=== PATIENT | male | born 1950 | race African-American/Black ===

== ENCOUNTER 2016-10-22 15:22 | Inpatient (IN) | payer OTHER, BC ==
[2016-10-22 15:32] VITALS: BMI 28.1
--- NOTE | 2016-10-22 16:10 | PDOC ---
History of Present Illness - General History Source: Patient Exam Limitations: No Limitations - History of Present Illness Initial Comments: 10/22/16 18:11 The patient is a 65 year old male, with a significant past medical history of COPD(3 L O2 at home), asthma, DM(well controlled), CAD, CVA(left sided weakness) , hypertension, hyperlipidemia, and gout, who presents to the emergency department complaining of fever and an open wound to his foot since yesterday. The patient reports he has a history of wounds to his feet secondary to diabetes. The patient reports one of his wounds split open yesterday morning and he lost a lot of blood. The patient denies any recent injuries to his leg or foot. This morning when he woke up the patient reports he had a fever. Once the patients nurse took his temperature, his TMax was 102F. The patient reports calling Dr. Sanders, who typically monitors his wounds every 2 weeks , and states he was told to present to the ED for further evaluation. The patient denies any chest pain shortness of breath, diaphoresis or palpitations. The patient denies any cough, headache, or dizziness. The patient denies any abdominal pain, nausea, vomiting, diarrhea, constipation, or changes in urination patterns. The patient denies any recent travel or sick contacts. Allergies: None reported. Past Surgical History: Appendectomy, Cholecystectomy Social History: Former smoker(Quit 2013). Denies alcohol or drug use. PCP: Dr. Sanon Surgeon: Dr. Sanders <Kelvin Byrnes - Last Filed: 10/22/16 18:11> <Mark Bonds - Last Filed: 10/23/16 09:59> - General Chief Complaint: SIRS, Suspected/Possible Stated Complaint: CHILLS, SOB, LACERATED RT TOE (DIABETIC) Time Seen by Provider: 10/22/16 15:40 Past History <Kelvin Byrnes - Last Filed: 10/22/16 18:11> - Past Medical History Anemia: No Asthma: Yes Cancer: No Cardiac Disorders: Yes (CAD) CVA: Yes (L sided weakness) COPD: Yes (3L O2 NC AT HOME) CHF: No Dementia: No Diabetes: Yes GI Disorders: No Disorders: Yes HTN: Yes Hypercholesterolemia: Yes Liver Disease: No Suicide Attempt (Hx): No Seizures: No Thyroid Disease: No - Surgical History Abdominal Surgery: No Appendectomy: Yes Cardiac Surgery: No Cholecystectomy: Yes Lung Surgery: No Neurologic Surgery: No Orthopedic Surgery: No - Immunization History Immunization Up to Date: Yes - Psycho/Social/Smoking Cessation Hx Anxiety: No Suicidal Ideation: No Smoking Status: No Smoking History: Never smoked Have you smoked in the past 12 months: Yes Number of Cigarettes Smoked Daily: 10 If you are a former smoker, when did you quit?: May 2014 Information on smoking cessation initiated: No 'Breaking Loose' booklet given: 08/22/15 Hx Alcohol Use: No Drug/Substance Use Hx: No Substance Use Type: None Hx Substance Use Treatment: No <Mark Bonds - Last Filed: 10/23/16 09:59> - Past Medical History Allergies/Adverse Reactions: Allergies Allergy/AdvReac Type Severity Reaction Status Date / Time No Known Drug Allergies Allergy Verified 10/22/16 15:32 Home Medications: Ambulatory Orders Allopurinol 300 mg PO DAILY 05/11/16 Amlodipine Besylate [Norvasc -] 5 mg PO DAILY 05/11/16 Atorvastatin Ca [Lipitor] 20 mg PO DAILY 05/11/16 Clopidogrel Bisulfate [Plavix -] 75 mg PO DAILY 05/11/16 Furosemide [Lasix -] 40 mg PO DAILY 05/11/16 Gabapentin [Neurontin] 800 mg PO TID 05/11/16 Linagliptin [Tradjenta] 5 mg PO DAILY 05/11/16 Mupirocin Ointment [Bactroban 2% Ointment -] 1 applic TP BID 05/11/16 Nystatin Powder [Nystop Powder -] 60 gm TP DAILY 05/11/16 Omeprazole 20 mg PO BID 05/11/16 Peg 400/Hypromellose/Glycerin [Artificial Tears Drops] 1 drop OU DAILY 05/11/16 Pramipexole Dihydrochloride [Mirapex -] 0.5 mg PO HS 05/11/16 Solifenacin Succinate [Vesicare -] 5 mg PO DAILY 05/11/16 Tamsulosin HCl [Flomax -] 0.4 mg PO DAILY 05/11/16 Trazodone HCl [Desyrel -] 50 mg PO HS 05/11/16 Docusate Sodium [Colace -] 100 mg PO TID capsule 07/19/16 Erythromycin 0.5% Eye Ointment [Erythromycin 0.5% Eye Ointment -] 1 applic OD TID tube 07/19/16 Losartan Potassium [Cozaar -] 25 mg PO DAILY tablet 07/19/16 Metoprolol Succinate [Toprol XL -] 25 mg PO DAILY tab.sr.24h 07/19/16 Neomycin/Polymyx/Hc Ophth Susp [Cortisporin *Ophthalmic Suspension* -] 1 drop OD Q4HWA drops 07/19/16 Nicotine Polacrilex [Nicorelief -] 2 mg BUC Q2H PRN #0 gum 07/19/16 Oxycodone HCl [Roxicodone -] 5 mg PO Q8H PRN #30 tablet MDD 3 07/19/16 Picc Line Flush [Picc Line Flush -] 8 ml IVPUSH PRN PRN #0 ml 07/20/16 Memantine HCl [Namenda Xr] 7 mg PO DAILY 07/22/16 Cefepime [Maxipime (Restricted To Id) -] 2 gm IVPB DAILY #0 vial 07/23/16 Metronidazole [Flagyl -] 500 mg PO TID tablet 07/23/16 Review of Systems - Review of Systems Able to Perform ROS?: Yes Comments:: 10/22/16 18:11 CONSTITUTIONAL: +Fever. No reported: Chills, Diaphoresis, Generalized Weakness, Malaise, Loss of Appetite HEENT: No reported: Rhinorrhea, Nasal Congestion, Throat Pain, Throat Swelling, Difficulty Swallowing, Mouth Swelling, Ear Pain, Eye Pain, Visual Changes CARDIOVASCULAR: No reported: Chest Pain, Syncope, Palpitations, Irregular Heart Rate, Lightheadedness, Peripheral Edema RESPIRATORY: No reported: Cough, Shortness of Breath, SOB with Exertion, Orthopnea, Wheezing , Stridor, Hemoptysis GASTROINTESTINAL: No reported: Abdominal pain, Abdominal Distension, Nausea, Vomiting, Diarrhea, Constipation, Melena, Hematochezia GENITOURINARY: No reported: Dysuria, Frequency, Urgency, Hesitancy, Flank Pain, Genital Pain MUSCULOSKELETAL: No reported: Myalgia, Arthralgia, Joint Swelling, Back pain, Neck Pain SKIN: +Wound to feet bilaterally. No reported: Rash, Itching, Pallor HEMEATOLOGIC/IMMUNOLOGIC: No reported: Easy Bleeding, Easy Bruising, Lymphadenopathy, Frequent infections ENDOCRINE: No reported: Unexplained Weight Gain, Unexplained Weight Loss, Heat Intolerance , Cold Intolerance NEUROLOGIC: No reported: Headache, Focal Weakness, Paresthesias, Vertigo, Lightheadedness, Unsteady Gait, Seizure, Mental Status Changes, Incontinence PSYCHIATRIC: No reported: Anxiety, Depression <Kelvin Byrnes - Last Filed: 10/22/16 18:11> *Physical Exam - Vital Signs Last Vital Signs Temp Pulse Resp BP Pulse Ox 102.7 F H 89 29 H 104/65 97 10/22/16 16:10 10/22/16 15:32 10/22/16 16:10 10/22/16 16:10 10/22/16 16:10 - Physical Exam Comments: 10/22/16 18:11 GENERAL: The patient is awake, alert, and fully oriented, Nontoxic - in no acute distress. HEAD: Normocephalic, atraumatic. EYES: extraocular movements intact, sclera anicteric, conjunctiva clear. ENT: NC in place, Normal voice, Moist mucous membranes. NECK: Normal range of motion, supple LUNGS: Breath sounds equal, clear to auscultation bilaterally. No wheezes, no rhonchi, no rales. HEART: Regular rate and rhythm, without murmur, rub or gallop. ABDOMEN: Soft, nontender, normoactive bowel sounds. No guarding, no rebound.No CVA tenderness EXTREMITIES: mild edema of L foot, + open wound on plantar aspect of L foot, + thick blood tinged discharge when compressed, +warmth to L foot, RLE no open wounds, +chronic deformity noted on R ankle/foot NEUROLOGICAL: No facial asymmetry, Normal speech, moving all 4 extremities spontaneously and symmetrically. PSYCH: Normal mood, normal affect. SKIN: Warm, Dry, normal turgor. <Kelvin Byrnes - Last Filed: 10/22/16 18:11> - Vital Signs Last Vital Signs Temp Pulse Resp BP Pulse Ox 100.4 F H 103 H 20 108/58 97 10/22/16 15:29 10/22/16 15:29 10/22/16 15:29 10/22/16 15:29 10/22/16 15:29 <Mark Bonds - Last Filed: 10/23/16 09:59> Heart Score/ECG Review - ECG Impressions Comment:: 10/22/16 18:40 Twelve-lead EKG was performed and reviewed by me. There is normal sinus rhythm with a normal rate. Rate of 86 Right axis deviation q wave in lead III <Mark Bonds - Last Filed: 10/23/16 09:59> ED Treatment Course - LABORATORY CBC & Chemistry Diagram: 10/22/16 16:25 10/22/16 16:25 - ADDITIONAL ORDERS Additional order review: Laboratory Results 10/22/16 10/22/16 10/22/16 16:40 16:25 16:25 INR PTT (Actin FS) VBG pH 7.32 POC VBG pCO2 44.8 D POC VBG pO2 41.4 Mixed VBG HCO3 22.4 Sodium Cancelled Potassium Cancelled Chloride Cancelled Carbon Dioxide Cancelled Anion Gap Cancelled BUN Cancelled Creatinine Cancelled Creat Clearance w eGFR Cancelled Random Glucose Cancelled Lactic Acid 3.586 H* Calcium Cancelled Total Bilirubin Cancelled AST Cancelled ALT Cancelled Alkaline Phosphatase Cancelled Creatine Kinase Cancelled Troponin I Cancelled Total Protein Cancelled Albumin Cancelled 10/22/16 16:25 INR 1.31 H PTT (Actin FS) 31.2 VBG pH POC VBG pCO2 POC VBG pO2 Mixed VBG HCO3 Sodium Potassium Chloride Carbon Dioxide Anion Gap BUN Creatinine Creat Clearance w eGFR Random Glucose Lactic Acid Calcium Total Bilirubin AST ALT Alkaline Phosphatase Creatine Kinase Troponin I Total Protein Albumin 10/22/16 16:25 RBC 4.60 D MCV 68.2 L MCHC 30.5 L RDW 21.4 H D MPV 9.1 Neutrophils % 83.9 H Lymphocytes % 6.0 L D Monocytes % 9.1 Eosinophils % 0.5 D Basophils % 0.5 - Medications Given in the ED: ED Medications Discontinued Medications Generic Name Dose Route Start Last Admin Trade Name Freq PRN Reason Stop Dose Admin Acetaminophen 975 mg 10/22/16 17:01 10/22/16 17:05 Tylenol - PO 10/22/16 17:02 975 mg ONCE ONE Administration <Kelvin Byrnes - Last Filed: 10/22/16 18:11> - LABORATORY CBC & Chemistry Diagram: 10/23/16 06:05 10/23/16 06:05 <Mark Bonds - Last Filed: 10/23/16 09:59> Medical Decision Making - Medical Decision Making 10/22/16 16:13 65y Y M htn, copd (on 3L of NC), CVA, hl, dm, chronic wound presents with fever/ chills since yesterday, +bloody discharge for the past few days. was told to come to ED by his visiting nurse. The pts wound noted for bloody discharg when compressed, his vitals noted for fever. sepsis orderset initiated suspect source is on his foot will give tylenol wound cultures sent anticipate admission A portion of this note was documented by scribe services under my direction. I have reviewed the details of the note, within reason, and agree with the documentation with the following case summary and management plan written by me 10/22/16 18:41 patient's lab reviewed there is a leukocytosis noted, the patient's lactic acid elevated to 3.3 the rest of CMP was hemolyzed we resent and are awaiting the results the pts bp is also low normal - will give fluids and recheck bp and LA. pt written for zosyn for empiric coverage will admit for further management - if persistnely hypotensive after 2L or LA nto decraesing will admit to ICU, otherwise will admit to tele. CRITICAL CARE DOCUMENTATION: I spent ~35 minutes of Critical Care time, excluding separately billable procedures, involving high complexity decision making to assess, manipulate and support vital system function(s) to treat single or multiple vital organ system failure and/or to prevent further life threatening deterioration of the patient' s condition. 10/22/16 20:13 repeat LA at 1.1 will admit to tele for severe sepsis case dw dr. salinas agree with managment and admission Case discussed in detail with admitting physician including history, physical exam and ancillary studies. Admitting physician has assumed care for the patient, will follow all pending diagnostics and will complete the evaluation and treatment. <Mark Bonds - Last Filed: 10/23/16 09:59> *DC/Admit/Observation/Transfer - Attestations Scribe Attestion: 10/22/16 18:13 Documentation prepared by Kelvin Byrnes, acting as medical appliance maker for Mark Bonds MD. <Kelvin Byrnes - Last Filed: 10/22/16 18:11> - Discharge Dispostion Admit: Yes <Mark Bonds - Last Filed: 10/23/16 09:59> Diagnosis at time of Disposition: Severe sepsis, Diabetic foot infection - Discharge Dispostion Condition at time of disposition: Guarded - Referrals
[2016-10-22 16:47] LABS: VENOUS PH 7.32 (7.32-7.42)
[2016-10-22 16:48] LABS: VENOUS BLOOD GAS HCO3 22.4 meq/L (19-25)
[2016-10-22] MEDS ORDERED: ACETAMINOPHEN 325 MG TABLET (FP) PO ONE (17:01)
[2016-10-22] MEDS ORDERED: ACETAMINOPHEN 325 MG TABLET (FP) ONE (17:03)
[2016-10-22 17:05] LABS: BASOPHIL 0.5 % (0-2.0); EOSINOPHIL 0.5 % (0-4.5); MCH 20.8 pg (25.7-33.7); MCHC 30.5 g/dl (32.0-35.9); MEAN CELL VOLUME 68.2 fl (80-96); MEAN PLT VOLUME 9.1 fl (7.5-11.1); NEUTROPHILS 83.9 % (42.8-82.8); RDW 21.4 % (11.9-15.9); WHITE BLOOD COUNT 14.6 K/mm3 (4.0-10.0)
[2016-10-22 17:08] LABS: INR 1.31 (0.82-1.09); PROTHROMBIN TIME (PATIENT) 14.5 SEC (9.98-11.88)
[2016-10-22 17:11] LABS: ACTIVATED PTT 31.2 SECONDS (26.9-34.4)
[2016-10-22] MEDS ORDERED: SODIUM CHLORIDE 1,000 ML IV ONE (17:51)
[2016-10-22] MEDS ORDERED: PIPERACILLIN/TAZOB 4.5 GM/100 ML PRE-DOCKED IVPB ONE (17:51)
[2016-10-22] MEDS ORDERED: PIPERACILLIN/TAZOB 4.5 GM 100 ML IVPB ONE (17:57)
[2016-10-22 18:02] LABS: HYPOCHROMIA 3+
[2016-10-22 18:03] LABS: ANISOCYTOSIS 2+; MICROCYTOSIS 2+; OVALOCYTES 1+; PLATELET COUNT 213 K/MM3 (134-434); TARGET CELLS 1+
[2016-10-22 18:04] LABS: PLATELET ESTIMATE ADEQUATE (NORMAL)
--- NOTE | 2016-10-22 18:15 | CONSULT ---
Consult - History of Present Illness History of Present Illness: 65 yo male DM PAD followed for multiple wounds of both feet over past year. He had healed all of his wounds several weeks ago. He states that he awoke today with bloody drainage from the right foot. No pain. 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 History of Recent Travel: No Home Medications - Allergies Allergies/Adverse Reactions: Allergies Allergy/AdvReac Type Severity Reaction Status Date / Time No Known Drug Allergies Allergy Verified 10/22/16 15:32 - Home Medications Home Medications: Ambulatory Orders Allopurinol 300 mg PO DAILY 05/11/16 Amlodipine Besylate [Norvasc -] 5 mg PO DAILY 05/11/16 Atorvastatin Ca [Lipitor] 20 mg PO DAILY 05/11/16 Clopidogrel Bisulfate [Plavix -] 75 mg PO DAILY 05/11/16 Furosemide [Lasix -] 40 mg PO DAILY 05/11/16 Gabapentin [Neurontin] 800 mg PO TID 05/11/16 Linagliptin [Tradjenta] 5 mg PO DAILY 05/11/16 Mupirocin Ointment [Bactroban 2% Ointment -] 1 applic TP BID 05/11/16 Nystatin Powder [Nystop Powder -] 60 gm TP DAILY 05/11/16 Omeprazole 20 mg PO BID 05/11/16 Peg 400/Hypromellose/Glycerin [Artificial Tears Drops] 1 drop OU DAILY 05/11/16 Pramipexole Dihydrochloride [Mirapex -] 0.5 mg PO HS 05/11/16 Solifenacin Succinate [Vesicare -] 5 mg PO DAILY 05/11/16 Tamsulosin HCl [Flomax -] 0.4 mg PO DAILY 05/11/16 Trazodone HCl [Desyrel -] 50 mg PO HS 05/11/16 Docusate Sodium [Colace -] 100 mg PO TID capsule 07/19/16 Erythromycin 0.5% Eye Ointment [Erythromycin 0.5% Eye Ointment -] 1 applic OD TID tube 07/19/16 Losartan Potassium [Cozaar -] 25 mg PO DAILY tablet 07/19/16 Metoprolol Succinate [Toprol XL -] 25 mg PO DAILY tab.sr.24h 07/19/16 Neomycin/Polymyx/Hc Ophth Susp [Cortisporin *Ophthalmic Suspension* -] 1 drop OD Q4HWA drops 07/19/16 Nicotine Polacrilex [Nicorelief -] 2 mg BUC Q2H PRN #0 gum 07/19/16 Oxycodone HCl [Roxicodone -] 5 mg PO Q8H PRN #30 tablet MDD 3 07/19/16 Picc Line Flush [Picc Line Flush -] 8 ml IVPUSH PRN PRN #0 ml 07/20/16 Memantine HCl [Namenda Xr] 7 mg PO DAILY 07/22/16 Cefepime [Maxipime (Restricted To Id) -] 2 gm IVPB DAILY #0 vial 07/23/16 Metronidazole [Flagyl -] 500 mg PO TID tablet 07/23/16 Family Disease History - Family Disease History Family Disease History: Diabetes: Mother (htn), Other: Father (htn), Mother Physical Exam Vital Signs: Vital Signs Temperature 102.7 F H 10/22/16 16:10 Pulse Rate 89 10/22/16 15:32 Respiratory Rate 29 H 10/22/16 16:10 Blood Pressure 104/65 10/22/16 16:10 O2 Sat by Pulse Oximetry (%) 97 10/22/16 16:10 Extremities: Yes: Other (Right foot edematous, no crepitance. Plantar wound with surrounding callus. No active drainage. Foot warm.) Labs: CBC, BMP 10/22/16 16:25 10/22/16 16:25 Problem List - Problems (1) Diabetic infection of right foot Assessment/Plan: Deep tissue infection with probable osteomyelitis right foot. Plan local wound probing and drainage if necessary. IV antibiotics and Iodoform packing. Will likely need bone resection or TMA. Code(s): E11.69 - TYPE 2 DIABETES MELLITUS WITH OTHER SPECIFIED COMPLICATION L08.9 - LOCAL INFECTION OF THE SKIN AND SUBCUTANEOUS TISSUE, UNSP Assessment/Plan Right foot wound debrided at bedside to remove callus. Wound probes down to metatarsal. No pus expressed. Wound packed with gauze and dilute betadine.
[2016-10-22 19:05] LABS: ALBUMIN 2.7 g/dl (3.4-5.0); CALCIUM 7.6 mg/dL (8.5-10.1); CREATININE 1.8 mg/dL (0.7-1.3)
[2016-10-22 19:10] LABS: BILIRUBIN,TOTAL 0.6 mg/dL (0.2-1.0); TOT PROT 6.7 g/dl (6.4-8.2); TROPONIN I 0.02 ng/ml (0.00-0.05)
[2016-10-22] MEDS ORDERED: VANCOMYCIN 1,000 MG in DEXTROSE 5%-WATER - 250 ML IVPB ONE (19:11)
[2016-10-22] MEDS ORDERED: VANCOMYCIN 1 GRAM (PRE-DOCKED) 250 ML IVPB ONE (19:24)
[2016-10-22] MEDS ORDERED: SODIUM CHLORIDE 1,000 ML IV SCH (20:45)
--- NOTE | 2016-10-22 20:51 | HP ---
CHIEF COMPLAINT: fever, foot wound PCP: Dr. Giron, [facility] sx: Tommy HISTORY OF PRESENT ILLNESS: This is a 65 year old male with a past medical history of COPD(3 L O2 at home), asthma, DM, GI bleed, CAD, CVA(left sided weakness), hypertension, hyperlipidemia, and gout who presented to the ED with a reopened right foot wound with bloody discharge. Pt also reports fever at home. Pt with no acute complaints on exam. Denies chest pain, unusual SOB or cough, abdominal pain, N/V /D. Reports feet pain, but no more than typically. ER course was notable for: (1) WBC 14.6, temp 102.6 (2) given vancomycin and zosyn (3) Recent Travel: none PAST MEDICAL HISTORY: COPD(3 L O2 at home) asthma pulmonary fibrosis sleep apnea DM CAD CVA(left sided weakness) hypertension hyperlipidemia gout renal insufficiency chronic foot wounds, followed by [facility] surgery, all healed as of several weeks ago PAST SURGICAL HISTORY: L second toe amputation appendectomy cholecystectomy tonsillectomy bypass (leg) eye surgery due to fractured orbit R carotid endarterectomy Social History: Smoking: states that he quit a few months ago Alcohol: 2 drinks/day on weekends when he has company Drugs: denies Allergies No Known Drug Allergies Allergy (Verified 10/22/16 15:32) HOME MEDICATIONS: 3 Medication Instructions Recorded Allopurinol 300 mg PO DAILY 05/11/16 Amlodipine Besylate [Norvasc -] 5 mg PO DAILY 05/11/16 Atorvastatin Ca [Lipitor] 20 mg PO DAILY 05/11/16 Clopidogrel Bisulfate [Plavix -] 75 mg PO DAILY 05/11/16 Furosemide [Lasix -] 40 mg PO DAILY 05/11/16 Gabapentin [Neurontin] 800 mg PO TID 05/11/16 Linagliptin [Tradjenta] 5 mg PO DAILY 05/11/16 Mupirocin Ointment [Bactroban 2% 1 applic TP BID 05/11/16 Ointment -] Nystatin Powder [Nystop Powder -] 60 gm TP DAILY 05/11/16 Omeprazole 20 mg PO BID 05/11/16 Peg 400/Hypromellose/Glycerin 1 drop OU DAILY 05/11/16 [Artificial Tears Drops] Pramipexole Dihydrochloride 0.5 mg PO HS 05/11/16 [Mirapex -] Solifenacin Succinate [Vesicare -] 5 mg PO DAILY 05/11/16 Tamsulosin HCl [Flomax -] 0.4 mg PO DAILY 05/11/16 Trazodone HCl [Desyrel -] 50 mg PO HS 05/11/16 Docusate Sodium [Colace -] 100 mg PO TID capsule 07/19/16 Erythromycin 0.5% Eye Ointment 1 applic OD TID tube 07/19/16 [Erythromycin 0.5% Eye Ointment -] Losartan Potassium [Cozaar -] 25 mg PO DAILY tablet 07/19/16 Metoprolol Succinate [Toprol XL -] 25 mg PO DAILY tab.sr.24h 07/19/16 Neomycin/Polymyx/Hc Ophth Susp 1 drop OD Q4HWA drops 07/19/16 [Cortisporin *Ophthalmic Suspension* -] Nicotine Polacrilex [Nicorelief -] 2 mg BUC Q2H PRN #0 gum 07/19/16 Oxycodone HCl [Roxicodone -] 5 mg PO Q8H PRN #30 tablet MDD 3 07/19/16 Picc Line Flush [Picc Line Flush -] 8 ml IVPUSH PRN PRN #0 ml 07/20/16 Memantine HCl [Namenda Xr] 7 mg PO DAILY 07/22/16 Cefepime [Maxipime (Restricted To 2 gm IVPB DAILY #0 vial 07/23/16 Id) -] Metronidazole [Flagyl -] 500 mg PO TID tablet 07/23/16 REVIEW OF SYSTEMS CONSTITUTIONAL: Present: fever Absent: chills, diaphoresis, generalized weakness, malaise, loss of appetite, weight change HEENT: Absent: rhinorrhea, nasal congestion, throat pain, throat swelling, difficulty swallowing, mouth swelling, ear pain, eye pain, visual changes CARDIOVASCULAR: Absent: chest pain, syncope, palpitations, irregular heart rate, lightheadedness , peripheral edema RESPIRATORY: Absent: cough, shortness of breath, dyspnea with exertion, orthopnea, wheezing, stridor, hemoptysis GASTROINTESTINAL: Absent: abdominal pain, abdominal distension, nausea, vomiting, diarrhea, constipation, melena, hematochezia GENITOURINARY: Absent: dysuria, frequency, urgency, hesitancy, hematuria, flank pain, genital pain MUSCULOSKELETAL: Absent: myalgia, arthralgia, joint swelling, back pain, neck pain SKIN: Present: R foot wound Absent: rash, itching, pallor HEMATOLOGIC/IMMUNOLOGIC: Absent: easy bleeding, easy bruising, lymphadenopathy, frequent infections ENDOCRINE: Absent: unexplained weight gain, unexplained weight loss, heat intolerance, cold intolerance NEUROLOGIC: Absent: headache, focal weakness or paresthesias, dizziness, unsteady gait, seizure, mental status changes, bladder or bowel incontinence PSYCHIATRIC: Absent: anxiety, depression, suicidal or homicidal ideation, hallucinations. PHYSICAL EXAMINATION Vital Signs - 24 hr 3 10/22/16 10/22/16 10/22/16 15:29 15:32 16:10 Temperature 100.4 F H 102.7 F H 102.7 F H Pulse Rate 103 H 89 Pulse Rate [ Apical] Respiratory 20 29 H 29 H Rate Blood Pressure 108/58 104/65 Blood Pressure 104/65 [Right] O2 Sat by Pulse 97 97 97 Oximetry (%) 10/22/16 10/22/16 10/22/16 18:00 18:10 19:06 Temperature 102.4 F H Pulse Rate Pulse Rate [ 82 82 Apical] Respiratory 22 22 Rate Blood Pressure 89/58 Blood Pressure 93/58 99/56 [Right] O2 Sat by Pulse 95 95 Oximetry (%) 3 10/22/16 20:05 Temperature Pulse Rate Pulse Rate [ 80 Apical] Respiratory 30 H Rate Blood Pressure Blood Pressure 107/71 [Right] O2 Sat by Pulse Oximetry (%) GENERAL: Awake, alert, and fully oriented, in no acute distress. HEAD: Normal with no signs of trauma. EYES: Pupils equal, round and reactive to light, extraocular movements intact, sclera anicteric, conjunctiva clear. No lid lag. EARS, NOSE, THROAT: Ears normal, nares patent, oropharynx clear without exudates. Moist mucous membranes. NECK: Normal range of motion, supple without lymphadenopathy, JVD, or masses. LUNGS: Breath sounds equal, clear to auscultation bilaterally. No wheezes, and no crackles. No accessory muscle use. diminished bilat bases, sonorous respirations when sleeping HEART: Regular rate and rhythm, normal S1 and S2 without murmur, rub or gallop. ABDOMEN: Soft, nontender, not distended, normoactive bowel sounds, no guarding, no rebound, no masses. No hepatomegaly or splenomegaly. MUSCULOSKELETAL: Normal range of motion at all joints. No bony deformities or tenderness. No CVA tenderness. UPPER EXTREMITIES: 2+ pulses, warm, well-perfused. No cyanosis. No clubbing. No peripheral edema. LOWER EXTREMITIES: 2+ pulses, warm, well-perfused. No calf tenderness. No peripheral edema. NEUROLOGICAL: Cranial nerves II-XII intact. Normal speech. Normal gait. PSYCHIATRIC: Cooperative. Good eye contact. Appropriate mood and affect. SKIN: Warm, dry, normal turgor, no rashes or lesions noted, normal capillary refill. right foot wound, ball of the foot, irreg shape, packing in place, bloody discharge Laboratory Results - last 24 hr 3 10/22/16 10/22/16 10/22/16 16:25 16:25 16:25 WBC 14.6 H D RBC 4.60 D Hgb 9.6 L D Hct 31.4 L D MCV 68.2 L MCHC 30.5 L RDW 21.4 H D Plt Count 213 D MPV 9.1 Neutrophils % 83.9 H Lymphocytes % 6.0 L D Monocytes % 9.1 Eosinophils % 0.5 D Basophils % 0.5 Platelet Estimate Adequate Hypochromic-Microcytic 3+ Anisocytosis 2+ Microcytosis 2+ Target Cells 1+ Ovalocytes 1+ Rouleaux 2+ INR 1.31 H PTT (Actin FS) 31.2 VBG pH POC VBG pCO2 POC VBG pO2 Mixed VBG HCO3 Sodium Cancelled Potassium Cancelled Chloride Cancelled Carbon Dioxide Cancelled Anion Gap Cancelled BUN Cancelled Creatinine Cancelled Creat Clearance w eGFR Cancelled Random Glucose Cancelled Lactic Acid Calcium Cancelled Total Bilirubin Cancelled AST Cancelled ALT Cancelled Alkaline Phosphatase Cancelled Creatine Kinase Cancelled Troponin I Cancelled Total Protein Cancelled Albumin Cancelled Blood Type 3 10/22/16 10/22/16 10/22/16 10/22/16 16:25 16:40 17:50 17:50 WBC RBC Hgb Hct MCV MCHC RDW Plt Count MPV Neutrophils % Lymphocytes % Monocytes % Eosinophils % Basophils % Platelet Estimate Hypochromic-Microcytic Anisocytosis Microcytosis Target Cells Ovalocytes Rouleaux INR PTT (Actin FS) VBG pH 7.32 POC VBG pCO2 44.8 D POC VBG pO2 41.4 Mixed VBG HCO3 22.4 Sodium 134 L Potassium 3.6 D Chloride 102 Carbon Dioxide 21 D Anion Gap 11 BUN 25 H D Creatinine 1.8 H D Creat Clearance w eGFR 38.06 Random Glucose 135 H Lactic Acid 3.586 H* 1.197 Calcium 7.6 L Total Bilirubin 0.6 D AST 25 D ALT 18 Alkaline Phosphatase 141 H D Creatine Kinase 93 Troponin I 0.02 Total Protein 6.7 Albumin 2.7 L Blood Type B POSITIVE ASSESSMENT/PLAN: 65yM with PMH: COPD(3 L O2 at home), asthma, SAMMY, DM, GI bleed, CAD, CVA(left sided weakness), hypertension, hyperlipidemia, and gout presented to the ED with fever and reopened foot wound. He has been admitted for sepsis. Severe sepsis - as evidenced by, fever, WBC, and elevated lactic acid - given NS 1L in ED with repeat Lactic acid 1.197 - cont zosyn, previous microbiology revealed sensitivity to same. No need for vancomycin, + VRE in wound in past - ID consult Dr. Domínguez (seen by group on last admission) DM - cont home tradjenta - BGM ACHS, novolog sliding scale w/neuropathy - cont neurontin acute kidney injury in setting of CKD - bump in creatinine from baseline of 1.1-1.4 to 1.8. Likely due to sepsis - cont gentle IV hydration, monitor creatinine - renal dose medications. HTN/CAD/CVA - cont home meds: lipitor, metoprolol, plavix gout - cont home medications F/E/N - cont NS @ 75cc/hr for now - repeat BMP in am - diabetic/low sodium diet. Dispo: Pt currently requires inpatient management of his emergent condition. Visit type - Emergency Visit Emergency Visit: Yes ED Registration Date: 10/22/16 Care time: The patient presented to the Emergency Department on the above date and was hospitalized for further evaluation of their emergent condition. - New Patient This patient is new to me today: Yes Date on this admission: 10/22/16 - Critical Care Critical Care patient: No
[2016-10-22] MEDS: INSULIN SLIDING SCALE (NOVOLOG) 1 VIAL SQ SCH (22:14)
[2016-10-22] MEDS ORDERED: INSULIN REGULAR HUMAN 100 UNITS/ML *VIAL ONE (22:15)
[2016-10-22] MEDS: PRAMIPEXOLE DIHYDROCHLORIDE 0.5 MG TABLET PO SCH (23:10)
[2016-10-22] MEDS: DOCUSATE SODIUM 100 MG CAPSULE (FP) PO SCH (23:10)
[2016-10-22] MEDS: GABAPENTIN 400 MG CAPSULE (FP) PO SCH (23:10)
[2016-10-22] MEDS: PANTOPRAZOLE 20 MG TABLET (FP) PO SCH (23:10)
[2016-10-22] MEDS: oxyCODONE HCL 5 MG TABLET PO PRN (23:15)
[2016-10-23] MEDS: HEPARIN NA (PORCINE) 5,000 UNITS/ML 1ML VIAL SQ SCH ×4 (01:44→22:09)
[2016-10-23] MEDS: GABAPENTIN 400 MG CAPSULE (FP) PO SCH ×3 (06:19→22:09)
[2016-10-23] MEDS: DOCUSATE SODIUM 100 MG CAPSULE (FP) PO SCH ×3 (06:19→22:09)
[2016-10-23] MEDS: INSULIN SLIDING SCALE (NOVOLOG) 1 VIAL SQ SCH ×4 (06:21→22:22)
[2016-10-23] MEDS ORDERED: sitaGLIPtin PHOSPHATE 50 MG TABLET PO SCH (07:00)
[2016-10-23 07:27] LABS: BASOPHIL 0.9 % (0-2.0); EOSINOPHIL 1.5 % (0-4.5); MCH 20.4 pg (25.7-33.7); MCHC 29.6 g/dl (32.0-35.9); MEAN CELL VOLUME 68.9 fl (80-96); MEAN PLT VOLUME 9.1 fl (7.5-11.1); NEUTROPHILS 79.6 % (42.8-82.8); PLATELET COUNT 170 K/MM3 (134-434); RDW 21.2 % (11.9-15.9); WHITE BLOOD COUNT 17.7 K/mm3 (4.0-10.0)
[2016-10-23 07:53] LABS: CALCIUM 8.1 mg/dL (8.5-10.1); CREATININE 2.1 mg/dL (0.7-1.3); MAGNESIUM 1.5 mg/dL (1.8-2.4); PHOSPHOROUS 3.4 mg/dL (2.5-4.9)
--- NOTE | 2016-10-23 08:57 | PN ---
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 Now with bloody drainage 102.7 fever - Current Medication List Current Medications: Active Medications Allopurinol (Zyloprim -) 300 mg PO DAILY [facility] Amlodipine Besylate (Norvasc -) 5 mg PO DAILY [facility] Atorvastatin Calcium (Lipitor -) 20 mg PO HS [facility] Clopidogrel Bisulfate (Plavix -) 75 mg PO DAILY [facility] Docusate Sodium (Colace -) 100 mg PO TID [facility] Last Admin: 10/23/16 06:19 Dose: 100 mg Furosemide (Lasix -) 40 mg PO DAILY [facility] Gabapentin (Neurontin -) 800 mg PO TID [facility] Last Admin: 10/23/16 06:19 Dose: 800 mg Heparin Sodium (Porcine) (Heparin -) 5,000 unit SQ Q8H-IV MISSAEL Last Admin: 10/23/16 01:44 Dose: 5,000 unit Sodium Chloride (Normal Saline -) 1,000 mls @ 75 mls/hr IV ASDIR [facility] Last Admin: 10/22/16 21:01 Dose: 75 mls/hr Piperacillin Sod/Tazobactam Sod (Zosyn 2.25gm Ivpb (Pre-Docked)) 50 mls @ 100 mls/hr IVPB ONCE ONE PRN Reason: Protocol Stop: 10/24/16 02:29 Insulin Aspart (Novolog Vial Sliding Scale -) 0 vial SQ ACHS [facility] PRN Reason: Protocol Last Admin: 10/23/16 06:21 Dose: Not Given Losartan Potassium (Cozaar -) 25 mg PO DAILY [facility] Metoprolol Succinate (Toprol Xl -) 25 mg PO DAILY [facility] Non-Formulary Medication (Memantine Hcl [Namenda Xr]) 7 mg PO DAILY [facility] Non-Formulary Medication (Peg 400/Hypromellose/Glycerin [Artificial Tears Drops] ) 1 drop OU DAILY [facility] Oxycodone HCl (Roxicodone -) 5 mg PO Q8H PRN PRN Reason: PAIN Last Admin: 10/22/16 23:15 Dose: 5 mg Pantoprazole Sodium (Protonix -) 20 mg PO BID [facility] Last Admin: 10/22/16 23:10 Dose: 20 mg Pramipexole Dihydrochloride (Mirapex -) 0.5 mg PO HS [facility] Last Admin: 10/22/16 23:10 Dose: 0.5 mg Sitagliptin Phosphate (Januvia -) 50 mg PO DAILY@0700 [facility] Last Admin: 10/23/16 06:19 Dose: 50 mg Solifenacin (Vesicare -) 5 mg PO DAILY [facility] Tamsulosin HCl (Flomax -) 0.4 mg PO DAILY [facility] - Objective Vital Signs: Vital Signs Temperature 98.5 F 10/23/16 06:00 Pulse Rate 71 10/23/16 06:00 Respiratory Rate 20 10/23/16 06:00 Blood Pressure 106/48 10/23/16 06:00 O2 Sat by Pulse Oximetry (%) 97 10/22/16 22:30 Constitutional: Yes: No Distress Neck: Yes: WNL, Supple Cardiovascular: Yes: S1, S2 Respiratory: Yes: WNL, Regular, CTA Bilaterally, Rales. No: Rhonchi Gastrointestinal: Yes: Soft. No: Tenderness Extremities: Yes: Other (Swollen open plantar wound draining) Edema: Yes Labs: CBC, BMP 10/23/16 06:05 10/23/16 06:05 INR, PTT INR 1.31 (0.82-1.09) H 10/22/16 16:25 Problem List - Problems (1) Diabetic foot infection Code(s): E11.69 - TYPE 2 DIABETES MELLITUS WITH OTHER SPECIFIED COMPLICATION L08.9 - LOCAL INFECTION OF THE SKIN AND SUBCUTANEOUS TISSUE, UNSP (2) Severe sepsis Code(s): A41.9 - SEPSIS, UNSPECIFIED ORGANISM (3) Multiple drug resistant organism (MDRO) culture positive Code(s): Z16.24 - RESISTANCE TO MULTIPLE ANTIBIOTICS Assessment/Plan Microbiology 07/12/16 14:48 Foot - Right Instep Gram Stain - Final 07/12/16 14:48 Foot - Right Instep Wound Culture - Final Klebsiella Pneumoniae Enterobacter Cloacae Strep Agalactiae Group B Vr Ec Faecalis Diphtheroid/Corynebacterium Laboratory Tests 10/22/16 10/22/16 10/23/16 16:25 16:25 06:05 WBC 17.7 H Hgb 8.7 L Hct 29.3 L Plt Count 170 D INR 1.31 H BUN Creatinine Lactic Acid 3.586 H* 10/23/16 06:05 WBC Hgb Hct Plt Count INR BUN 32 H D Creatinine 2.1 H Lactic Acid Assessment Diabetic foot infection with underlying osteomyelitis / cellulitis History of mixed wound culture includes VREF ? Seizure from carbepenem previous Plan Cultures Isolate Vancomycin Zosyn for now Patient will require surgery per Dr Sanders next week Emmanuel BANEGAS
[2016-10-23 09:21] LABS: URINE APPEARANCE CLEAR; URINE BILIRUBIN NEGATIVE (NEGATIVE); URINE BLOOD NEGATIVE (NEGATIVE); URINE COLOR YELLOW; URINE GLUCOSE (UA) NEGATIVE (NEGATIVE); URINE KETONE NEGATIVE (NEGATIVE); URINE LEUK ESTERASE TRACE (NEGATIVE); URINE NITRITE NEGATIVE (NEGATIVE); URINE PROTEIN NEGATIVE (NEGATIVE); URINE UROBILINOGEN NEGATIVE E.U./dl (0.2-1.0)
[2016-10-23] MEDS: amLODIPine BESYLATE 5 MG TABLET (FP) PO SCH (09:21)
[2016-10-23] MEDS: CLOPIDOGREL BISULFATE 75 MG TABLET (FP) PO SCH (09:21)
[2016-10-23] MEDS: SOLIFENACIN SUCCINATE 5 MG TAB (FP) PO SCH (09:21)
[2016-10-23] MEDS: PANTOPRAZOLE 20 MG TABLET (FP) PO SCH ×2 (09:21→22:09)
[2016-10-23] MEDS: TAMSULOSIN HCL 0.4 MG CAP.ER.24H (FP) PO SCH (09:21)
[2016-10-23 09:27] LABS: URINE BACTERIA RARE /hpf (NONE SEEN); URINE RBC 1 /hpf (0-3); URINE WBC 8 /hpf (3-5)
[2016-10-23] MEDS: PIPERACILLIN/TAZOB 3.375 GM 50 ML IVPB SCH ×2 (09:52→17:00)
[2016-10-23] MEDS: METOPROLOL SUCCINATE 25 MG TAB.SR.24H (FP) PO SCH (09:52)
[2016-10-23] MEDS ORDERED: LOSARTAN POTASSIUM 25 MG TABLET PO SCH (10:00)
[2016-10-23] MEDS ORDERED: FUROSEMIDE 40 MG TABLET (FP) PO SCH (10:00)
[2016-10-23] MEDS ORDERED: ALLOPURINOL 300 MG TABLET (FP) PO SCH (10:00)
--- NOTE | 2016-10-23 11:28 | CONS ---
DATE OF CONSULTATION: DATE OF DICTATION: 10/23/2016 HISTORY OF PRESENT ILLNESS: This is a 66-year-old male with known diabetes and multiple other comorbidities admitted for evaluation of an infected right foot wound. Yesterday, he noted a bloody drainage from the right foot wound, and he has had previous antibiotics under our direction in July during which time he received cefepime and metronidazole for an extended time period, and levofloxacin with metronidazole. He has been followed by Dr. Sanders and has had MRIs in the past suggesting osteomyelitis of the right foot. He was febrile on admission to 102.7. He notes bloody drainage from the right foot which he noted yesterday, but denies any pain, fever, chills, or night sweats. He has no abdominal pain or urinary complaints. According to the progress notes, he may have sustained a seizure while receiving a carbapenem on a previous admission. PAST MEDICAL HISTORY: Includes stroke, hypertension, hyperlipidemia, peripheral vascular disease, oxygen-dependent COPD, pulmonary fibrosis, cholecystitis. MEDICATIONS: Allopurinol, amlodipine, atorvastatin, Plavix, Lasix, Neurontin, Tradjenta, omeprazole, tamsulosin, Desyrel, losartan, metoprolol, oxycodone. ALLERGIES: None known. 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 FAMILY HISTORY: Reviewed and noncontributory. REVIEW OF SYSTEMS: Respiratory: Chronic shortness of breath. Denies cough or hemoptysis. Cardiac: No chest pain, palpitations, syncope, murmur. Gastrointestinal: No abdominal pain, nausea, vomiting, diarrhea. Genitourinary: No dysuria, hematuria, or urinary frequency. PHYSICAL EXAMINATION: Vital signs: The temperature on admission was 102.7, pulse 89, respiratory rate 29, blood pressure 105/67, O2 saturation 97%. Neck: Supple, without adenopathy. Lungs: Clear to percussion with bilateral rhonchi and few rales. Heart: S1, S2, regular rhythm, without audible murmur, gallop, or rub. Abdomen: Soft, nontender, without hepatosplenomegaly, guarding or rebound. Extremities: Revealed diffuse swelling of the right lower extremity, amputation of the 2nd toe on the left foot. No crepitus noted on the right foot. Plantar wound with surrounding callus and bloody drainage. The white count 17.7, hemoglobin 8.7, platelets 170. INR 1.31. BUN 32, creatinine 2.1, lactic acid 3.58. ASSESSMENT: 1. Sepsis syndrome. 2. Diabetic foot infection with cellulitis and underlying osteomyelitis. Local wound probed to bone as per Dr. Sanders. 3. History of polymicrobial culture, date July 12, 2016, with multiple gram negatives, gram positives including vancomycin-resistant Enterococcus faecium. PLAN: Blood and wound cultures. Empiric therapy with vancomycin already treated along with piperacillin tazobactam 3.375 g every 8 hours. Sedimentation rate and CRP to help monitor response to treatment. Patient will require surgical debridement and possible transmetatarsal amputation to be scheduled per Dr. Sanders. Clinically, he appears stable at this time. He will be maintained on contact isolation because of his prior history of VREF. JEANINE CALDWELL M.D. [id number]
[2016-10-23] MEDS ORDERED: MAGNESIUM SULF 50% (8.12 MEQ/2 ML-1 GM VIAL) ONE (11:44)
[2016-10-23] MEDS ORDERED: MAGNESIUM SULF 50% (8.12 MEQ/2 ML-1 GM VIAL) IVPB ONE (12:00)
--- NOTE | 2016-10-23 12:23 | PN ---
Progress Note (short form) - Note Progress Note: Afebrile Right foot swelling improved. Wound with small amount of drainage. Xray non-diagnostic. OR debridement vs amputation will be scheduled when medically cleared. Problem List - Problems (1) Diabetic infection of right foot Code(s): E11.69 - TYPE 2 DIABETES MELLITUS WITH OTHER SPECIFIED COMPLICATION L08.9 - LOCAL INFECTION OF THE SKIN AND SUBCUTANEOUS TISSUE, UNSP
--- NOTE | 2016-10-23 13:35 | PN ---
Physical Exam: SUBJECTIVE: Patient seen and examined. He has no acute complaints, denies sob, cp, chills, says he uses oxygen at home prn. OBJECTIVE: Vital Signs Period Temp Pulse Resp BP Sys/Cintron Pulse Ox Last 24 Hr 98.4 F-100.3 F 67-80 18-30 103-124/48-71 95-97 PE Neuro: alert awake, cn 2-12intact Pulm: diminished, clear, +NC CV: s1 s2 rrr no mrg Abd: s nt nd + bs Ext: R foot swelling, wound dressing in place, toe amputation CBCD WBC 17.7 K/mm3 (4.0-10.0) H 10/23/16 06:05 RBC 4.26 M/mm3 (4.00-5.60) 10/23/16 06:05 Hgb 8.7 GM/dL (11.7-16.9) L 10/23/16 06:05 Hct 29.3 % (35.4-49) L 10/23/16 06:05 MCV 68.9 fl (80-96) L 10/23/16 06:05 MCHC 29.6 g/dl (32.0-35.9) L 10/23/16 06:05 RDW 21.2 % (11.9-15.9) H 10/23/16 06:05 Plt Count 170 K/MM3 (134-434) D 10/23/16 06:05 MPV 9.1 fl (7.5-11.1) 10/23/16 06:05 CMP Sodium 138 mmol/L (136-145) 10/23/16 06:05 Potassium 3.5 mmol/L (3.5-5.1) 10/23/16 06:05 Chloride 102 mmol/L (98-107) 10/23/16 06:05 Carbon Dioxide 23 mmol/L (21-32) 10/23/16 06:05 Anion Gap 13 (8-16) 10/23/16 06:05 BUN 32 mg/dL (7-18) H D 10/23/16 06:05 Creatinine 2.1 mg/dL (0.7-1.3) H 10/23/16 06:05 Creat Clearance w eGFR 38.06 (>60) 10/22/16 17:50 Calcium 8.1 mg/dL (8.5-10.1) L 10/23/16 06:05 Total Bilirubin 0.6 mg/dL (0.2-1.0) D 10/22/16 17:50 AST 25 U/L (15-37) D 10/22/16 17:50 ALT 18 U/L (12-78) 10/22/16 17:50 Alkaline Phosphatase 141 U/L (45-117) H D 10/22/16 17:50 Total Protein 6.7 g/dl (6.4-8.2) 10/22/16 17:50 Albumin 2.7 g/dl (3.4-5.0) L 10/22/16 17:50 Active Medications Generic Name Dose Route Start Last Admin Trade Name Northq PRN Reason Stop Dose Admin Allopurinol 300 mg 10/23/16 10:00 10/23/16 09:21 Zyloprim - PO 300 mg DAILY MISSAEL Administration Amlodipine Besylate 5 mg 10/23/16 10:00 10/23/16 09:21 Norvasc - PO 5 mg DAILY MISSAEL Administration Atorvastatin Calcium 20 mg 10/23/16 22:00 Lipitor - PO HS MISSAEL Clopidogrel Bisulfate 75 mg 10/23/16 10:00 10/23/16 09:21 Plavix - PO 75 mg DAILY MISSAEL Administration Docusate Sodium 100 mg 10/22/16 22:00 10/23/16 06:19 Colace - PO 100 mg TID MISSAEL Administration Furosemide 40 mg 10/23/16 10:00 10/23/16 09:21 Lasix - PO 40 mg DAILY MISSAEL Administration Gabapentin 800 mg 10/22/16 22:00 10/23/16 06:19 Neurontin - PO 800 mg TID MISSAEL Administration Heparin Sodium (Porcine) 5,000 unit 10/23/16 02:00 10/23/16 09:21 Heparin - SQ 5,000 unit Q8H-IV MISSAEL Administration Sodium Chloride 1,000 mls @ 75 mls/hr 10/22/16 20:45 10/22/16 21:01 Normal Saline - IV 75 mls/hr ASDIR MISSAEL Administration Piperacillin Sod/Tazobactam Sod 50 mls @ 100 mls/hr 10/23/16 10:00 10/23/16 09: 52 Zosyn 3.375gm Ivpb (Pre-Docked) IVPB 100 mls/hr Q8H-IV MISSAEL Administration Protocol Insulin Aspart 0 vial 10/22/16 22:00 10/23/16 11:53 Novolog Vial Sliding Scale - SQ Not Given ACHS MISSAEL Protocol Losartan Potassium 25 mg 10/23/16 10:00 10/23/16 09:52 Cozaar - PO 25 mg DAILY MIS[facility]EL Administration Metoprolol Succinate 25 mg 10/23/16 10:00 10/23/16 09:52 Toprol Xl - PO 25 mg DAILY MIS[facility]EL Administration Non-Formulary Medication 7 mg 10/23/16 10:00 Memantine Hcl [Namenda Xr] PO DAILY [facility] Non-Formulary Medication 1 drop 10/23/16 10:00 Peg 400/Hypromellose/Glycerin [Artificial Tears Drops] OU DAILY [facility] Oxycodone HCl 5 mg 10/22/16 20:48 10/22/16 23:15 Roxicodone - PO 5 mg Q8H PRN Administration PAIN Pantoprazole Sodium 20 mg 10/22/16 22:00 10/23/16 09:21 Protonix - PO 20 mg BID MISSAEL Administration Pramipexole Dihydrochloride 0.5 mg 10/22/16 22:00 10/22/16 23:10 Mirapex - PO 0.5 mg HS MISSAEL Administration Sitagliptin Phosphate 50 mg 10/23/16 07:00 10/23/16 06:19 Januvia - PO 50 mg DAILY@0700 M[facility]EL Administration Solifenacin 5 mg 10/23/16 10:00 10/23/16 09:21 Vesicare - PO 5 mg DAILY MIS[facility]EL Administration Tamsulosin HCl 0.4 mg 10/23/16 10:00 10/23/16 09:21 Flomax - PO 0.4 mg DAILY MIS[facility]EL Administration Assessment: 65 year old male with PMH: COPD (3 L O2 at home), asthma, SAMMY, DM, GI bleed, CAD, CVA (left sided weakness), hypertension, hyperlipidemia, and gout , Former smoker, Beta Thalasemia, admitted with fever and reopened foot wound, now with sepsis. Plan: 1. Severe sepsis due to underlying osteomyelitis / cellulitis - Increase zosyn dose (day 1) - x1 dose vanco, re dose per ID - Monitor fever - Lactic acid wnl - Follow cultures 2. Diabetic foot ulcer/osteo - Foot xray reviewed - Surgery with Dr. Sanders next week - Cardiology consult for surgical clearance - Discussed above w/ vascular 3. JESÚS on CKD 3 - Cr elevated - Stop Losartan, Januvia, Lasix, Allopurinol - Increase fluids - Trend BMP - Dose meds for cr cl of 36 4. DM II - ISS, BGM ACHS - Hold PO meds 5. Diabetic neuropathy vs hx of seizures - Decrease neurontin 600 BID 6. HTN/CAD/CVA - Continue Amlodipine 5mg daily - Continue metoprolol 25mg daily - Continue Plavix - Hold ARB 7. Gout - Hold Allopurinol in setting of JESÚS 8. Hypomagnesemia - Replete mg 2gm x1 9. Anemia - Likely of chronic disease - will send iron panel - Trend CBC Visit type - Emergency Visit Emergency Visit: Yes ED Registration Date: 10/22/16 Care time: The patient presented to the Emergency Department on the above date and was hospitalized for further evaluation of their emergent condition. - New Patient This patient is new to me today: Yes Date on this admission: 10/23/16 - Critical Care Critical Care patient: No
[2016-10-23] MEDS: SODIUM CHLORIDE 1,000 ML IV SCH (14:53)
[2016-10-23] MEDS ORDERED: VANCOMYCIN 1,250 MG in DEXTROSE 5%-WATER - 250 ML IVPB ONE (17:00)
--- NOTE | 2016-10-23 18:30 | EKG ---
Test Reason : Blood Pressure : / mmHG Vent. Rate : 086 BPM Atrial Rate : 086 BPM P-R Int : 190 ms QRS Dur : 076 ms QT Int : 366 ms P-R-T Axes : 051 127 060 degrees QTc Int : 437 ms NORMAL SINUS RHYTHM RIGHT AXIS DEVIATION ABNORMAL ECG WHEN COMPARED WITH ECG OF 20-JUL-2016 21:21, NO SIGNIFICANT CHANGE WAS FOUND Confirmed by DESTINY GALVAN MD ([id number]) on 10/23/2016 6:30:21 PM Referred By: Confirmed By:DESTINY GALVAN MD
[2016-10-23] MEDS: PRAMIPEXOLE DIHYDROCHLORIDE 0.5 MG TABLET PO SCH (22:08)
[2016-10-23] MEDS: ATORVASTATIN CA 20 MG TABLET (FP) PO SCH (22:09)
[2016-10-24] MEDS ORDERED: PIPERACILLIN/TAZOB 2.25 GM 50 ML IVPB ONE (02:00)
[2016-10-24] MEDS: PIPERACILLIN/TAZOB 3.375 GM 50 ML IVPB SCH ×2 (02:17→09:26)
[2016-10-24] MEDS: GABAPENTIN 400 MG CAPSULE (FP) PO SCH (06:04)
[2016-10-24] MEDS: INSULIN SLIDING SCALE (NOVOLOG) 1 VIAL SQ SCH ×4 (06:05→22:17)
[2016-10-24] MEDS: DOCUSATE SODIUM 100 MG CAPSULE (FP) PO SCH ×3 (06:05→22:17)
[2016-10-24] MEDS: HEPARIN NA (PORCINE) 5,000 UNITS/ML 1ML VIAL SQ SCH ×3 (06:05→22:17)
[2016-10-24] MEDS: SODIUM CHLORIDE 1,000 ML IV SCH (06:10)
[2016-10-24 06:54] LABS: BASOPHIL 0.3 % (0-2.0); MCH 20.6 pg (25.7-33.7); MCHC 30.6 g/dl (32.0-35.9); MEAN CELL VOLUME 67.2 fl (80-96); MEAN PLT VOLUME 9.2 fl (7.5-11.1); NEUTROPHILS 74.5 % (42.8-82.8); PLATELET COUNT 179 K/MM3 (134-434); RDW 21.4 % (11.9-15.9); WHITE BLOOD COUNT 10.3 K/mm3 (4.0-10.0)
[2016-10-24 08:08] LABS: ALBUMIN 2.2 g/dl (3.4-5.0); CALCIUM 7.5 mg/dL (8.5-10.1)
[2016-10-24 08:14] LABS: BILIRUBIN,TOTAL 0.4 mg/dL (0.2-1.0); CREATININE 2.2 mg/dL (0.7-1.3); FERRITIN 132.947 ng/ml (16.4-293.9); TOT PROT 5.7 g/dl (6.4-8.2)
--- NOTE | 2016-10-24 08:26 | PN ---
Progress Note, Physician Chief Complaint: Vancomycin redosed 1.25 grs given after talking to nurse last night Zosyn day 2 Report positive blood cultures Gram positive cocci clusters - Current Medication List Current Medications: Active Medications Amlodipine Besylate (Norvasc -) 5 mg PO DAILY [facility] Last Admin: 10/23/16 09:21 Dose: 5 mg Atorvastatin Calcium (Lipitor -) 20 mg PO HS [facility] Last Admin: 10/23/16 22:09 Dose: 20 mg Clopidogrel Bisulfate (Plavix -) 75 mg PO DAILY [facility] Last Admin: 10/23/16 09:21 Dose: 75 mg Docusate Sodium (Colace -) 100 mg PO TID [facility] Last Admin: 10/24/16 06:05 Dose: Not Given Gabapentin (Neurontin -) 800 mg PO TID [facility] Last Admin: 10/24/16 06:04 Dose: 800 mg Heparin Sodium (Porcine) (Heparin -) 5,000 unit SQ TID [facility] Last Admin: 10/24/16 06:05 Dose: 5,000 unit Piperacillin Sod/Tazobactam Sod (Zosyn 3.375gm Ivpb (Pre-Docked)) 50 mls @ 100 mls/hr IVPB Q8H-IV [facility] PRN Reason: Protocol Last Admin: 10/24/16 02:17 Dose: 100 mls/hr Sodium Chloride (Normal Saline -) 1,000 mls @ 100 mls/hr IV ASDIR [facility] Last Admin: 10/24/16 06:10 Dose: 100 mls/hr Insulin Aspart (Novolog Vial Sliding Scale -) 1 vial SQ ACHS [facility] PRN Reason: Protocol Last Admin: 10/24/16 06:05 Dose: 2 units Metoprolol Succinate (Toprol Xl -) 25 mg PO DAILY [facility] Last Admin: 10/23/16 09:52 Dose: 25 mg Non-Formulary Medication (Memantine Hcl [Namenda Xr]) 7 mg PO DAILY [facility] Non-Formulary Medication (Peg 400/Hypromellose/Glycerin [Artificial Tears Drops] ) 1 drop OU DAILY [facility] Oxycodone HCl (Roxicodone -) 5 mg PO Q8H PRN PRN Reason: PAIN Last Admin: 10/22/16 23:15 Dose: 5 mg Pantoprazole Sodium (Protonix -) 20 mg PO BID [facility] Last Admin: 03/25/17 22:09 Dose: 20 mg Pramipexole Dihydrochloride (Mirapex -) 0.5 mg PO HS [facility] Last Admin: 10/23/16 22:08 Dose: 0.5 mg Solifenacin (Vesicare -) 5 mg PO DAILY [facility] Last Admin: 10/23/16 09:21 Dose: 5 mg Tamsulosin HCl (Flomax -) 0.4 mg PO DAILY [facility] Last Admin: 10/23/16 09:21 Dose: 0.4 mg - Objective Vital Signs: Vital Signs Temperature 98.9 F 10/24/16 05:57 Pulse Rate 74 10/24/16 05:57 Respiratory Rate 18 10/24/16 05:57 Blood Pressure 106/60 10/24/16 05:57 O2 Sat by Pulse Oximetry (%) 94 L 10/23/16 22:00 Constitutional: Yes: Well Nourished, No Distress HENT: Yes: WNL, Atraumatic Neck: Yes: WNL, Supple Cardiovascular: Yes: WNL, Regular Rate and Rhythm, S1, S2. No: Murmur Respiratory: Yes: WNL, Regular, CTA Bilaterally Gastrointestinal: Yes: WNL, Normal Bowel Sounds, Soft. No: Tenderness, Tenderness, Epigastrium Extremities: Yes: Other (Dressing open plantar wound as previously described with edema foot) Labs: CBC, BMP 10/24/16 06:00 INR, PTT INR 1.31 (0.82-1.09) H 10/22/16 16:25 Problem List - Problems (1) Diabetic foot infection Code(s): E11.69 - TYPE 2 DIABETES MELLITUS WITH OTHER SPECIFIED COMPLICATION L08.9 - LOCAL INFECTION OF THE SKIN AND SUBCUTANEOUS TISSUE, UNSP (2) Severe sepsis Code(s): A41.9 - SEPSIS, UNSPECIFIED ORGANISM (3) Multiple drug resistant organism (MDRO) culture positive Code(s): Z16.24 - RESISTANCE TO MULTIPLE ANTIBIOTICS (4) Bacteremia due to Gram-positive bacteria Code(s): A49.9 - BACTERIAL INFECTION, UNSPECIFIED Assessment/Plan Microbiology 10/22/16 16:30 Foot - Right Plantar Gram Stain - Final 10/22/16 16:25 Blood - Peripheral Venous Blood Culture - Preliminary Gram Positive Cocci Gram Positive Cocci#2 10/22/16 16:25 Blood - Peripheral Venous Blood Culture - Preliminary Gram Positive Cocci Laboratory Tests 10/22/16 10/23/16 10/23/16 16:25 06:05 06:05 WBC 14.6 H D 17.7 H Hgb Hct Plt Count ESR BUN 32 H D Creatinine 2.1 H Random Glucose 71 L D C-Reactive Protein Random Vancomycin 10/23/16 10/23/16 10/24/16 10:25 10:25 06:00 WBC Hgb Hct Plt Count ESR Pending BUN Creatinine Random Glucose C-Reactive Protein 16.4 H D Random Vancomycin 11.281 10/24/16 06:00 WBC 10.3 H D Hgb 7.8 L D Hct 25.5 L Plt Count 179 ESR BUN Creatinine Random Glucose C-Reactive Protein Random Vancomycin ASSESSMENT SEPSIS SYNDROME IMPROVED DIABETIC FOOT WOUND WITH OSTEOMYELITIS GRAM POSITIVE BACTEREMIA STAPH CHRONIC KIDNEY DISEASE DM PlAN NEEDS SURGERY DR ARANA GIVE STANDING DOSE OF VANCO 1.25 GR DAILY AWAIT WOUND CULTURE RE NEED FOR ZOSYN RECHECK VANCO TROUGH LEVELS AND REPEAT BLOOD CULTURES TOMORROW [facility]ITER RENAL FUNCTION JAVI BANEGAS
[2016-10-24 09:10] LABS: PLATELET ESTIMATE ADEQUATE (NORMAL)
[2016-10-24 09:11] LABS: OVALOCYTES 1+; PLATELET COMMENT2 NO CLOTTING DETECTED; SPHEROCYTE 1+
[2016-10-24 09:12] LABS: FRAGMENTED CELL 1+
[2016-10-24] MEDS: CLOPIDOGREL BISULFATE 75 MG TABLET (FP) PO SCH (09:25)
[2016-10-24] MEDS: amLODIPine BESYLATE 5 MG TABLET (FP) PO SCH (09:25)
[2016-10-24] MEDS: TAMSULOSIN HCL 0.4 MG CAP.ER.24H (FP) PO SCH (09:25)
[2016-10-24] MEDS: PANTOPRAZOLE 20 MG TABLET (FP) PO SCH ×2 (09:25→22:17)
[2016-10-24] MEDS: METOPROLOL SUCCINATE 25 MG TAB.SR.24H (FP) PO SCH (09:26)
[2016-10-24] MEDS: SOLIFENACIN SUCCINATE 5 MG TAB (FP) PO SCH (09:26)
[2016-10-24] MEDS ORDERED: VANCOMYCIN 1,250 MG in DEXTROSE 5%-WATER - 250 ML IVPB SCH (10:00)
--- NOTE | 2016-10-24 10:03 | CON.CARD ---
Consult Consult Specialty:: Cardiology Referred by:: Hospitalist Reason for Consultation:: Cardiac evaluation and clearance - History of Present Illness Chief Complaint: Right foot wound History of Present Illness: Patient is a 65 year old male well known to me with underlying history of CAD, HTN/HCVD, COPD, PAD s/p multiple debridements and vascular interventions and wound care, type 2 diabetes mellitus (insulin requiring) who presents with right foot ulcer that needs further treatment. Currently, he awaits debridement and I & D of the wound. He denies fever or chills. He denies chest pain, shortness of breath or palpitations. He denies paroxysmal nocturnal dyspnea or orthopnea. He denies headache or lightheadedness. Denies nausea, vomiting or diarrhea. 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: CVA Cardio/Vascular: Yes: HTN, Hyperlipdemia, Other (PAD) Pulmonary: Yes: Asthma, COPD, O2 Dependent, Pulmonary Fibrosis, Sleep Apnea Hepatobiliary: Yes: Cholecystitis Renal/: Yes: Renal Inusuff Musculoskeletal: Yes: Other (chronic foot ulcers) Endocrine: Yes: Diabetes Mellitus - Past Surgical History Past Surgical History: Yes: Amputation (second toe left foot), Appendectomy, Bypass (leg), Carotid Endarterectomy (right), Cholecystectomy, Tonsillectomy - Alcohol/Substance Use Hx Alcohol Use: No Number of Drinks Daily: 2 (beer, cr on weekend) History of Substance Use: reports: None - Smoking History Smoking history: Never smoked Have you smoked in the past 12 months: Yes Aproximately how many cigarettes per day: 10 If you are a former smoker, when did you quit?: May 2014 - Social History Usual Living Arrangement: Alone ADL: Independent (uses a walker and wheelchair, in process of getting a scooter) 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 ,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 History of Recent Travel: No Home Medications - Allergies Allergies/Adverse Reactions: Allergies Allergy/AdvReac Type Severity Reaction Status Date / Time No Known Drug Allergies Allergy Verified 10/22/16 15:32 - Home Medications Home Medications: Ambulatory Orders Allopurinol 300 mg PO DAILY 05/11/16 Amlodipine Besylate [Norvasc -] 5 mg PO DAILY 05/11/16 Atorvastatin Ca [Lipitor] 20 mg PO DAILY 05/11/16 Clopidogrel Bisulfate [Plavix -] 75 mg PO DAILY 05/11/16 Furosemide [Lasix -] 40 mg PO DAILY 05/11/16 Gabapentin [Neurontin] 800 mg PO TID 05/11/16 Linagliptin [Tradjenta] 5 mg PO DAILY 05/11/16 Mupirocin Ointment [Bactroban 2% Ointment -] 1 applic TP BID 05/11/16 Nystatin Powder [Nystop Powder -] 60 gm TP DAILY 05/11/16 Omeprazole 20 mg PO BID 05/11/16 Peg 400/Hypromellose/Glycerin [Artificial Tears Drops] 1 drop OU DAILY 05/11/16 Pramipexole Dihydrochloride [Mirapex -] 0.5 mg PO HS 05/11/16 Solifenacin Succinate [Vesicare -] 5 mg PO DAILY 05/11/16 Tamsulosin HCl [Flomax -] 0.4 mg PO DAILY 05/11/16 Trazodone HCl [Desyrel -] 50 mg PO HS 05/11/16 Docusate Sodium [Colace -] 100 mg PO TID capsule 07/19/16 Erythromycin 0.5% Eye Ointment [Erythromycin 0.5% Eye Ointment -] 1 applic OD TID tube 07/19/16 Losartan Potassium [Cozaar -] 25 mg PO DAILY tablet 07/19/16 Metoprolol Succinate [Toprol XL -] 25 mg PO DAILY tab.sr.24h 07/19/16 Neomycin/Polymyx/Hc Ophth Susp [Cortisporin *Ophthalmic Suspension* -] 1 drop OD Q4HWA drops 07/19/16 Nicotine Polacrilex [Nicorelief -] 2 mg BUC Q2H PRN #0 gum 07/19/16 Oxycodone HCl [Roxicodone -] 5 mg PO Q8H PRN #30 tablet MDD 3 07/19/16 Picc Line Flush [Picc Line Flush -] 8 ml IVPUSH PRN PRN #0 ml 07/20/16 Memantine HCl [Namenda Xr] 7 mg PO DAILY 07/22/16 Cefepime [Maxipime (Restricted To Id) -] 2 gm IVPB DAILY #0 vial 07/23/16 Metronidazole [Flagyl -] 500 mg PO TID tablet 07/23/16 Family Disease History - Family Disease History Family Disease History: Diabetes: Mother (htn), Other: Father (htn), Mother Review of Systems - Review of Systems Constitutional: denies: Chills, Fever Cardiovascular: denies: Chest Pain, Palpitations Respiratory: denies: Cough, Orthopnea, PND, SOB, SOB on Exertion Gastrointestinal: denies: Abdominal Pain, Constipation, Melena, Nausea, Vomiting Integumentary: reports: Wound Neurological: denies: Dizziness, Headache, Seizure, Syncope Vital Signs: Vital Signs Temperature 98.9 F 10/24/16 05:57 Pulse Rate 74 10/24/16 05:57 Respiratory Rate 18 10/24/16 05:57 Blood Pressure 106/60 10/24/16 05:57 O2 Sat by Pulse Oximetry (%) 94 L 10/23/16 22:00 Neck: Yes: Supple Respiratory: Yes: CTA Bilaterally Gastrointestinal: Yes: Normal Bowel Sounds, Soft. No: Tenderness Cardiovascular: Yes: Regular Rate and Rhythm JVD: No Carotid Bruit: No PMI: Non-Displaced Heart Sounds: Yes: S1, S2 Edema: No - Other Data Labs, Other Data: CBC, BMP 10/24/16 06:00 10/24/16 06:00 INR, PTT INR 1.31 (0.82-1.09) H 10/22/16 16:25 Normal sinus rhythm right axis Problem List - Problems (1) Diabetic foot infection Code(s): E11.69 - TYPE 2 DIABETES MELLITUS WITH OTHER SPECIFIED COMPLICATION L08.9 - LOCAL INFECTION OF THE SKIN AND SUBCUTANEOUS TISSUE, UNSP (2) Coronary artery disease Code(s): I25.10 - ATHSCL HEART DISEASE OF [place] CORONARY ARTERY W/O ANG PCTRS Qualifiers: Coronary Disease-Associated Artery/Lesion type: [place] artery [place] vs. transplanted heart: [place] heart Associated angina: without angina Qualified Code(s): I25.10 - Atherosclerotic heart disease of [place] coronary artery without angina pectoris (3) Peripheral artery disease Code(s): I73.9 - PERIPHERAL VASCULAR DISEASE, UNSPECIFIED (4) Wound, open, foot Code(s): S91.309A - UNSPECIFIED OPEN WOUND, UNSPECIFIED FOOT, INITIAL ENCOUNTER Qualifiers: Encounter type: subsequent encounter Laterality: right Qualified Code(s): S91.301D - Unspecified open wound, right foot, subsequent encounter (5) Anemia Code(s): D64.9 - ANEMIA, UNSPECIFIED (6) COPD (chronic obstructive pulmonary disease) Code(s): J44.9 - CHRONIC OBSTRUCTIVE PULMONARY DISEASE, UNSPECIFIED Qualifiers : COPD type: COPD with acute lower respiratory infection Qualified Code(s): J44.0 - Chronic obstructive pulmonary disease with acute lower respiratory infection (7) Hyperlipidemia Code(s): E78.5 - HYPERLIPIDEMIA, UNSPECIFIED Qualifiers: Hyperlipidemia type: pure hypercholesterolemia (8) Hypertension Code(s): I10 - ESSENTIAL (PRIMARY) HYPERTENSION Qualifiers: Hypertension type: essential hypertension Qualified Code(s): I10 - Essential (primary) hypertension Assessment/Plan 1. Right foot ulcer for debridement 2. HTN/HCVD 3. PAD 4. Type 2 diabetes mellitus PLAN: 1. Continue Toprol XL and Amlodipine 2. Continue Lipitor 3. Continue Plavix 4. No absolute contraindication in proceeding with debridement in view of absence of ischemic symptoms, decompensated congestive heart failure or malignant arrhythmias. Further plans are to follow Branden Maddox MD
--- NOTE | 2016-10-24 10:12 | PN ---
Physical Exam: SUBJECTIVE: Patient seen and examined. He has pain near his R ankle. He has no sob, fever, chills, CP. OBJECTIVE: Vital Signs Period Temp Pulse Resp BP Sys/Cintron Pulse Ox Last 24 Hr 98.9 F-100 F 74-80 18-20 102-108/60-64 94 PE Neuro: alert awake, cn 2-12intact Pulm: CTAB CV: s1 s2 rrr no mrg Abd: s nt nd + bs Ext: R foot swelling, R ankle tenderness, planter wound with serous drainage, L 2nd toe amputation CBCD WBC 10.3 K/mm3 (4.0-10.0) H D 10/24/16 06:00 RBC 3.79 M/mm3 (4.00-5.60) L 10/24/16 06:00 Hgb 7.8 GM/dL (11.7-16.9) L D 10/24/16 06:00 Hct 25.5 % (35.4-49) L 10/24/16 06:00 MCV 67.2 fl (80-96) L 10/24/16 06:00 MCHC 30.6 g/dl (32.0-35.9) L 10/24/16 06:00 RDW 21.4 % (11.9-15.9) H 10/24/16 06:00 Plt Count 179 K/MM3 (134-434) 10/24/16 06:00 MPV 9.2 fl (7.5-11.1) 10/24/16 06:00 CMP Sodium 135 mmol/L (136-145) L 10/24/16 06:00 Potassium 3.9 mmol/L (3.5-5.1) 10/24/16 06:00 Chloride 104 mmol/L (98-107) 10/24/16 06:00 Carbon Dioxide 23 mmol/L (21-32) 10/24/16 06:00 Anion Gap 8 (8-16) 10/24/16 06:00 BUN 32 mg/dL (7-18) H 10/24/16 06:00 Creatinine 2.2 mg/dL (0.7-1.3) H 10/24/16 06:00 Creat Clearance w eGFR 30.10 (>60) 10/24/16 06:00 Calcium 7.5 mg/dL (8.5-10.1) L 10/24/16 06:00 Total Bilirubin 0.4 mg/dL (0.2-1.0) D 10/24/16 06:00 AST 28 U/L (15-37) 10/24/16 06:00 ALT 16 U/L (12-78) 10/24/16 06:00 Alkaline Phosphatase 127 U/L (45-117) H 10/24/16 06:00 Total Protein 5.7 g/dl (6.4-8.2) L 10/24/16 06:00 Albumin 2.2 g/dl (3.4-5.0) L 10/24/16 06:00 10/23/16 10/23/16 10/24/16 10:25 10:25 06:00 ESR 70 H Iron TIBC Iron Saturation Transferrin Ferritin C-Reactive Protein 16.4 H D Random Vancomycin 11.281 10/24/16 10/24/16 06:00 06:00 ESR Iron Pending TIBC Pending Iron Saturation Pending Transferrin Pending Ferritin 132.947 C-Reactive Protein Random Vancomycin Active Medications Generic Name Dose Route Start Last Admin Trade Name Freq PRN Reason Stop Dose Admin Amlodipine Besylate 5 mg 10/23/16 10:00 10/24/16 09:25 Norvasc - PO 5 mg DAILY [facility] Administration Atorvastatin Calcium 20 mg 10/23/16 22:00 10/23/16 22:09 Lipitor - PO 20 mg HS [facility] Administration Clopidogrel Bisulfate 75 mg 10/23/16 10:00 10/24/16 09:25 Plavix - PO 75 mg DAILY [facility] Administration Docusate Sodium 100 mg 10/22/16 22:00 10/24/16 06:05 Colace - PO Not Given TID [facility] Gabapentin 800 mg 10/22/16 22:00 10/24/16 06:04 Neurontin - PO 800 mg TID [facility] Administration Heparin Sodium (Porcine) 5,000 unit 10/23/16 22:00 10/24/16 06:05 Heparin - SQ 5,000 unit TID [facility] Administration Vancomycin HCl 1,250 mg/ 250 mls @ 166.667 mls/hr 10/24/16 10:00 Dextrose IVPB DAILY [facility] Protocol Piperacillin Sod/Tazobactam Sod 50 mls @ 100 mls/hr 10/24/16 18:00 Zosyn 2.25gm Ivpb (Pre-Docked) IVPB Q8H-IV [facility] Protocol Insulin Aspart 1 vial 10/23/16 14:18 10/24/16 06:05 Novolog Vial Sliding Scale - SQ 2 units ACHS [facility] Administration Protocol Metoprolol Succinate 25 mg 10/23/16 10:00 10/24/16 09:26 Toprol Xl - PO 25 mg DAILY [facility] Administration Non-Formulary Medication 7 mg 10/23/16 10:00 Memantine Hcl [Namenda Xr] PO DAILY [facility] Non-Formulary Medication 1 drop 10/23/16 10:00 Peg 400/Hypromellose/Glycerin [Artificial Tears Drops] OU DAILY [facility] Oxycodone HCl 5 mg 10/22/16 20:48 10/22/16 23:15 Roxicodone - PO 5 mg Q8H PRN Administration PAIN Pantoprazole Sodium 20 mg 10/22/16 22:00 10/24/16 09:25 Protonix - PO 20 mg BID [facility] Administration Pramipexole Dihydrochloride 0.5 mg 10/22/16 22:00 10/23/16 22:08 Mirapex - PO 0.5 mg HS [facility] Administration Solifenacin 5 mg 10/23/16 10:00 10/24/16 09:26 Vesicare - PO 5 mg DAILY [facility] Administration Tamsulosin HCl 0.4 mg 10/23/16 10:00 10/24/16 09:25 Flomax - PO 0.4 mg DAILY [facility] Administration Microbiology 10/22/16 16:25 Blood Culture - Preliminary Blood - Peripheral Venous Presumptive Mrsa (Pbp2a Pos) 10/22/16 16:25 Blood Culture - Preliminary Blood - Peripheral Venous Presumptive Mrsa (Pbp2a Pos) 10/22/16 16:30 Gram Stain - Final Foot - Right Plantar Assessment: 65 year old male with PMH: COPD (3L O2 at home), asthma, SAMMY, DM, GI bleed, CAD, CVA (left sided weakness), HTN, HLD, and gout, Former smoker, Beta Thalasemia, admitted with fever and reopened foot wound, now with sepsis. Plan: 1. Severe sepsis probable MRSA bacteremia and osteomyelitis / cellulitis - Renal dose Zosyn 2.25mg q8hr (day 2) - Continue Vanco 1,250mg daily - Check Vanco level in AM - Redraw blood cultures in AM - Discussed above with ID 2. Diabetic foot ulcer/osteo - Surgery with Dr. Sanders Tuesday - Cardiology on board 3. JESÚS on CKD 3 - Cr rising - Continue to hold Losartan, Januvia, Lasix, Allopurinol - Dose meds for cr cl of 36 - Hold fluids, until recheck cbc - Renal consulted 4. DM II - ISS, BGM ACHS - Hold PO meds 5. Diabetic neuropathy vs hx of seizures - Decrease Neurontin 600 BID (Neurontin 800 TID home dose) 6. HTN/CAD/CVA - Amlodipine 5mg daily - Metoprolol 25mg daily - Continue Plavix - Hold ARB 7. Anemia/hx of Best thalassemia - Acute drop this AM, possibly dilutional; stopped fluids this AM - Re check cbc now - Iron studies pending 8. Gout - Hold Allopurinol in setting of JESÚS 9. Hypomagnesemia - Check AM level Visit type - Emergency Visit Emergency Visit: Yes ED Registration Date: 10/22/16 Care time: The patient presented to the Emergency Department on the above date and was hospitalized for further evaluation of their emergent condition. - New Patient This patient is new to me today: No - Critical Care Critical Care patient: No
[2016-10-24 12:47] LABS: BASOPHIL 0.5 % (0-2.0); EOSINOPHIL 3.9 % (0-4.5); MCH 20.7 pg (25.7-33.7); MCHC 30.3 g/dl (32.0-35.9); MEAN CELL VOLUME 68.4 fl (80-96); MEAN PLT VOLUME 9.5 fl (7.5-11.1); NEUTROPHILS 74.8 % (42.8-82.8); PLATELET COUNT 167 K/MM3 (134-434); RDW 21.1 % (11.9-15.9)
[2016-10-24 12:49] LABS: WHITE BLOOD COUNT 9.1 K/mm3 (4.0-10.0)
[2016-10-24 13:44] LABS: URINE APPEARANCE CLEAR; URINE BILIRUBIN NEGATIVE (NEGATIVE); URINE BLOOD NEGATIVE (NEGATIVE); URINE COLOR LTYELLOW; URINE GLUCOSE (UA) NEGATIVE (NEGATIVE); URINE KETONE NEGATIVE (NEGATIVE); URINE LEUK ESTERASE NEGATIVE (NEGATIVE); URINE NITRITE NEGATIVE (NEGATIVE); URINE PROTEIN NEGATIVE (NEGATIVE); URINE UROBILINOGEN NEGATIVE E.U./dl (0.2-1.0)
[2016-10-24 14:36] LABS: CHLORIDE,RANDOM URINE < 10 MMOL/L; SODIUM,RANDOM URINE 21 MMOL/L; URINE CREATININE 65.5 mg/dL
[2016-10-24] MEDS: PIPERACILLIN/TAZOB 2.25 GM 50 ML IVPB SCH (17:33)
[2016-10-24] MEDS: GABAPENTIN 300 MG CAPSULE (FP) PO SCH (22:16)
[2016-10-24] MEDS: PRAMIPEXOLE DIHYDROCHLORIDE 0.5 MG TABLET PO SCH (22:16)
[2016-10-24] MEDS: ATORVASTATIN CA 20 MG TABLET (FP) PO SCH (22:17)
[2016-10-24] MEDS: oxyCODONE HCL 5 MG TABLET PO PRN (22:23)
[2016-10-25] MEDS: PIPERACILLIN/TAZOB 2.25 GM 50 ML IVPB SCH ×3 (01:30→19:02)
[2016-10-25] MEDS ORDERED: INSULIN (NOVOLOG) ASPART 100 UNITS/ML 10ML VIAL ONE ×3 (06:39→21:22)
[2016-10-25] MEDS: DOCUSATE SODIUM 100 MG CAPSULE (FP) PO SCH ×3 (06:42→22:11)
[2016-10-25] MEDS: INSULIN SLIDING SCALE (NOVOLOG) 1 VIAL SQ SCH ×4 (06:43→22:12)
[2016-10-25] MEDS: HEPARIN NA (PORCINE) 5,000 UNITS/ML 1ML VIAL SQ SCH ×3 (06:43→22:12)
[2016-10-25 07:05] LABS: EOSINOPHIL 6.7 % (0-4.5); MCH 20.3 pg (25.7-33.7); MCHC 29.8 g/dl (32.0-35.9); MEAN CELL VOLUME 68.1 fl (80-96); MEAN PLT VOLUME 9.1 fl (7.5-11.1); NEUTROPHILS 66.5 % (42.8-82.8); PLATELET COUNT 183 K/MM3 (134-434); RDW 21.3 % (11.9-15.9); WHITE BLOOD COUNT 6.8 K/mm3 (4.0-10.0)
[2016-10-25 07:23] LABS: ALBUMIN 2.3 g/dl (3.4-5.0); BILIRUBIN,TOTAL 0.4 mg/dL (0.2-1.0); MAGNESIUM 2.1 mg/dL (1.8-2.4); PHOSPHOROUS 2.9 mg/dL (2.5-4.9); TOT PROT 6.1 g/dl (6.4-8.2)
--- NOTE | 2016-10-25 08:58 | PN ---
Progress Note (short form) - Note Progress Note: VSS Less swelling and drainage. To schedule debridement of plantar wound. Problem List - Problems (1) Diabetic infection of right foot Code(s): E11.69 - TYPE 2 DIABETES MELLITUS WITH OTHER SPECIFIED COMPLICATION L08.9 - LOCAL INFECTION OF THE SKIN AND SUBCUTANEOUS TISSUE, UNSP
[2016-10-25] MEDS: GABAPENTIN 300 MG CAPSULE (FP) PO SCH ×2 (10:51→22:11)
[2016-10-25] MEDS: PANTOPRAZOLE 20 MG TABLET (FP) PO SCH ×2 (10:51→22:11)
[2016-10-25] MEDS: TAMSULOSIN HCL 0.4 MG CAP.ER.24H (FP) PO SCH (10:51)
[2016-10-25] MEDS: CLOPIDOGREL BISULFATE 75 MG TABLET (FP) PO SCH (10:52)
[2016-10-25] MEDS: METOPROLOL SUCCINATE 25 MG TAB.SR.24H (FP) PO SCH (10:52)
[2016-10-25] MEDS: amLODIPine BESYLATE 5 MG TABLET (FP) PO SCH (10:53)
[2016-10-25] MEDS: SOLIFENACIN SUCCINATE 5 MG TAB (FP) PO SCH (10:53)
[2016-10-25] MEDS: oxyCODONE HCL 5 MG TABLET PO PRN (10:54)
--- NOTE | 2016-10-25 10:58 | PN ---
Progress Note, Physician Chief Complaint: ID Cassi Ortiz Seen by Dr Sanders scheduled for the OR Low grade temp Positive blood cultures - Current Medication List Current Medications: Active Medications Amlodipine Besylate (Norvasc -) 5 mg PO DAILY [facility] Last Admin: 10/24/16 09:25 Dose: 5 mg Atorvastatin Calcium (Lipitor -) 20 mg PO HS [facility] Last Admin: 10/24/16 22:17 Dose: 20 mg Clopidogrel Bisulfate (Plavix -) 75 mg PO DAILY [facility] Last Admin: 10/24/16 09:25 Dose: 75 mg Docusate Sodium (Colace -) 100 mg PO TID [facility] Last Admin: 10/25/16 06:42 Dose: 100 mg Gabapentin (Neurontin -) 600 mg PO BID [facility] Last Admin: 10/24/16 22:16 Dose: 600 mg Heparin Sodium (Porcine) (Heparin -) 5,000 unit SQ TID [facility] Last Admin: 10/25/16 06:43 Dose: 5,000 unit Piperacillin Sod/Tazobactam Sod (Zosyn 2.25gm Ivpb (Pre-Docked)) 50 mls @ 100 mls/hr IVPB Q8H-IV [facility] PRN Reason: Protocol Last Admin: 10/25/16 01:30 Dose: 100 mls/hr Insulin Aspart (Novolog Vial Sliding Scale -) 1 vial SQ ACHS [facility] PRN Reason: Protocol Last Admin: 10/25/16 06:43 Dose: 2 units Metoprolol Succinate (Toprol Xl -) 25 mg PO DAILY [facility] Last Admin: 10/24/16 09:26 Dose: 25 mg Non-Formulary Medication (Memantine Hcl [Namenda Xr]) 7 mg PO DAILY [facility] Non-Formulary Medication (Peg 400/Hypromellose/Glycerin [Artificial Tears Drops] ) 1 drop OU DAILY [facility] Oxycodone HCl (Roxicodone -) 5 mg PO Q8H PRN PRN Reason: PAIN Last Admin: 10/24/16 22:23 Dose: 5 mg Pantoprazole Sodium (Protonix -) 20 mg PO BID [facility] Last Admin: 10/24/16 22:17 Dose: 20 mg Pramipexole Dihydrochloride (Mirapex -) 0.5 mg PO HS [facility] Last Admin: 10/24/16 22:16 Dose: 0.5 mg Solifenacin (Vesicare -) 5 mg PO DAILY [facility] Last Admin: 10/24/16 09:26 Dose: 5 mg Tamsulosin HCl (Flomax -) 0.4 mg PO DAILY [facility] Last Admin: 10/24/16 09:25 Dose: 0.4 mg - Objective Vital Signs: Vital Signs Temperature 99.6 F 10/25/16 10:00 Pulse Rate 92 H 10/25/16 10:00 Respiratory Rate 20 10/25/16 10:00 Blood Pressure 102/59 10/25/16 10:00 O2 Sat by Pulse Oximetry (%) 92 L 10/24/16 22:00 Labs: CBC, BMP 10/25/16 05:35 10/25/16 05:35 INR, PTT INR 1.31 (0.82-1.09) H 10/22/16 16:25 Problem List - Problems (1) Diabetic foot infection Code(s): E11.69 - TYPE 2 DIABETES MELLITUS WITH OTHER SPECIFIED COMPLICATION L08.9 - LOCAL INFECTION OF THE SKIN AND SUBCUTANEOUS TISSUE, UNSP (2) Severe sepsis Code(s): A41.9 - SEPSIS, UNSPECIFIED ORGANISM (3) Multiple drug resistant organism (MDRO) culture positive Code(s): Z16.24 - RESISTANCE TO MULTIPLE ANTIBIOTICS (4) Bacteremia due to Gram-positive bacteria Code(s): A49.9 - BACTERIAL INFECTION, UNSPECIFIED Assessment/Plan Microbiology 10/22/16 16:30 Foot - Right Plantar Gram Stain - Final 10/22/16 16:30 Foot - Right Plantar Wound Culture - Preliminary S Aureus Pending Organism 10/22/16 16:25 Blood - Peripheral Venous Blood Culture - Preliminary Presumptive Mrsa (Pbp2a Pos) 10/22/16 16:25 Blood - Peripheral Venous Blood Culture - Preliminary Mr S Aureus Laboratory Tests 10/23/16 10/24/16 10/25/16 10:25 06:00 05:35 WBC 6.8 Hgb 8.0 L Hct 26.9 L Plt Count 183 ESR 70 H BUN Creatinine Creat Clearance w eGFR C-Reactive Protein 16.4 H D Vancomycin Trough 10/25/16 10/25/16 05:35 05:35 WBC Hgb Hct Plt Count ESR BUN 26 H Creatinine 2.0 H Creat Clearance w eGFR 33.60 C-Reactive Protein Vancomycin Trough 18.916 H* D Assessment MRSA bacteremia with Diabetic foot abscess and underlying osteomyelitis KATHRYN of blood isolate 2ug. I would not change to Dpto until source control achieved with drainage of the foot Consider endocarditis given staph aureus Plan Check Vanco level tomorrow and consider standing dose of Vanco Repeat blood cultures sent No need for Zosyn now alll gram positive organisms Surgery foot ECHO ID follow up Emmanuel BANEGAS
--- NOTE | 2016-10-25 14:39 | PN ---
Physical Exam: SUBJECTIVE: Patient seen and examined. He is oob to chair. He said he was taking aleve for the pain at home. He has some R lower ext pain. OBJECTIVE: Vital Signs Period Temp Pulse Resp BP Sys/Cintron Pulse Ox Last 24 Hr 97.6 F-99.6 F 83-92 20-20 102-136/59-80 92 PE Neuro: alert awake, cn 2-12 intact Pulm: CTAB, + NC CV: s1 s2 rrr no mrg Abd: s nt nd + bs Ext: R foot swelling, R planter wound with serous drainage, +2 edema RLL CBCD WBC 6.8 K/mm3 (4.0-10.0) 10/25/16 05:35 RBC 3.95 M/mm3 (4.00-5.60) L 10/25/16 05:35 Hgb 8.0 GM/dL (11.7-16.9) L 10/25/16 05:35 Hct 26.9 % (35.4-49) L 10/25/16 05:35 MCV 68.1 fl (80-96) L 10/25/16 05:35 MCHC 29.8 g/dl (32.0-35.9) L 10/25/16 05:35 RDW 21.3 % (11.9-15.9) H 10/25/16 05:35 Plt Count 183 K/MM3 (134-434) 10/25/16 05:35 MPV 9.1 fl (7.5-11.1) 10/25/16 05:35 CMP Sodium 139 mmol/L (136-145) 10/25/16 05:35 Potassium 4.2 mmol/L (3.5-5.1) 10/25/16 05:35 Chloride 106 mmol/L (98-107) 10/25/16 05:35 Carbon Dioxide 23 mmol/L (21-32) 10/25/16 05:35 Anion Gap 10 (8-16) 10/25/16 05:35 BUN 26 mg/dL (7-18) H 10/25/16 05:35 Creatinine 2.0 mg/dL (0.7-1.3) H 10/25/16 05:35 Creat Clearance w eGFR 33.60 (>60) 10/25/16 05:35 Calcium 8.0 mg/dL (8.5-10.1) L 10/25/16 05:35 Total Bilirubin 0.4 mg/dL (0.2-1.0) 10/25/16 05:35 AST 20 U/L (15-37) D 10/25/16 05:35 ALT 16 U/L (12-78) 10/25/16 05:35 Alkaline Phosphatase 139 U/L (45-117) H 10/25/16 05:35 Total Protein 6.1 g/dl (6.4-8.2) L 10/25/16 05:35 Albumin 2.3 g/dl (3.4-5.0) L 10/25/16 05:35 10/24/16 10/25/16 10/25/16 12:15 05:35 05:35 Phosphorus 2.9 Magnesium 2.1 D U Random Total Protein 28 H Ur Random Sodium 21 Ur Random Potassium 11.1 Ur Random Chloride < 10 Ur Random Urea Nitrogn 345 Urine Creatinine 65.5 Vancomycin Trough 18.916 H* D Active Medications Generic Name Dose Route Start Last Admin Trade Name Freq PRN Reason Stop Dose Admin Amlodipine Besylate 5 mg 10/23/16 10:00 10/25/16 10:53 Norvasc - PO 5 mg DAILY MISSAEL Administration Atorvastatin Calcium 20 mg 10/23/16 22:00 10/24/16 22:17 Lipitor - PO 20 mg HS MISSAEL Administration Clopidogrel Bisulfate 75 mg 10/23/16 10:00 10/25/16 10:52 Plavix - PO 75 mg DAILY MISSAEL Administration Docusate Sodium 100 mg 10/22/16 22:00 10/25/16 14:13 Colace - PO Not Given TID MISSAEL Gabapentin 600 mg 10/24/16 22:00 10/25/16 10:51 Neurontin - PO 600 mg BID MISSAEL Administration Heparin Sodium (Porcine) 5,000 unit 10/23/16 22:00 10/25/16 14:13 Heparin - SQ 5,000 unit TID MISSAEL Administration Piperacillin Sod/Tazobactam Sod 50 mls @ 100 mls/hr 10/24/16 18:00 10/25/16 10: 57 Zosyn 2.25gm Ivpb (Pre-Docked) IVPB 100 mls/hr Q8H-IV MISSAEL Administration Protocol Insulin Aspart 1 vial 10/23/16 14:18 10/25/16 13:18 Novolog Vial Sliding Scale - SQ 2 units ACHS MISSAEL Administration Protocol Metoprolol Succinate 25 mg 10/23/16 10:00 10/25/16 10:52 Toprol Xl - PO 25 mg DAILY MISSAEL Administration Non-Formulary Medication 7 mg 10/23/16 10:00 Memantine Hcl [Namenda Xr] PO DAILY MISSAEL Non-Formulary Medication 1 drop 10/23/16 10:00 Peg 400/Hypromellose/Glycerin [Artificial Tears Drops] OU DAILY MISSAEL Oxycodone HCl 5 mg 10/22/16 20:48 10/25/16 10:54 Roxicodone - PO 5 mg Q8H PRN Administration PAIN Pantoprazole Sodium 20 mg 10/22/16 22:00 10/25/16 10:51 Protonix - PO 20 mg BID MISSAEL Administration Pramipexole Dihydrochloride 0.5 mg 10/22/16 22:00 10/24/16 22:16 Mirapex - PO 0.5 mg HS MISSAEL Administration Solifenacin 5 mg 10/23/16 10:00 10/25/16 10:53 Vesicare - PO 5 mg DAILY MISSAEL Administration Tamsulosin HCl 0.4 mg 10/23/16 10:00 10/25/16 10:51 Flomax - PO 0.4 mg DAILY MISSAEL Administration Microbiology 10/22/16 16:30 Gram Stain - Final Foot - Right Plantar Wound Culture - Preliminary Mr S Aureus Group D Strep Or Entero Coccus 10/22/16 16:25 Blood Culture - Final Blood - Peripheral Venous Mr S Aureus 10/22/16 16:25 Blood Culture - Final Blood - Peripheral Venous Mr S Aureus Assessment: 65 year old male with PMH: COPD (3L O2 at home), asthma, SAMMY, DM, GI bleed, CAD, CVA (left sided weakness), HTN, HLD, and gout, Former smoker, Beta Thalasemia, admitted with fever and reopened foot wound, now with sepsis. Plan: 1. Severe sepsis probable MRSA bacteremia and osteomyelitis / cellulitis - Hold Vanco today - Re dose per level - Repeat BC pending - Stop zosyn, G+ cultures - ECHO ordered 2. Diabetic foot ulcer/osteo - Surgery with Dr. Sanders Tuesday - Cardiology on board 3. JESÚS on CKD 3 - Cr improving - Continue to hold Losartan, Januvia, Lasix, Allopurinol - Will give 1L NS - D/w renal 4. DM II - ISS, BGM ACHS - Hold PO meds 5. Diabetic neuropathy vs hx of seizures - Neurontin 600 BID (Neurontin 800 TID home dose) 6. HTN/CAD/CVA - Amlodipine 5mg daily - Metoprolol 25mg daily - Continue Plavix - Hold ARB 7. Anemia/hx of Best thalassemia - Stable - Iron studies pending 8. Gout - Hold Allopurinol in setting of JESÚS Visit type - Emergency Visit Emergency Visit: Yes ED Registration Date: 10/22/16 Care time: The patient presented to the Emergency Department on the above date and was hospitalized for further evaluation of their emergent condition. - New Patient This patient is new to me today: No - Critical Care Critical Care patient: No
--- NOTE | 2016-10-25 16:07 | CONSULT ---
Consult - text type - Consultation Consultation Note: Renal Consult for JESÚS on CKD Stage 3 This is a 66 year old Gentleman with PMhx of CKD Stage 3 (baseline Cr of 1.4-1.7 ), Hypertension, CAD, COPD on Home O2, DM, Asthma, CVA, HLD, gout who presented with LE lesion/ulceration with elevated BUN/Cr that worsened initially during hospitalization. Pt denies any change in urine output, flank pain, hematuira. Reports that his BP has been lower lately. Is on ARB and diuretics at home. + NSAID use. No recent contrast exposure. No LE swelling. No fever or chills. Denies any SILVESTRE, confusion, lethargy. Lasix and ARB held starting yesterday. PMhx: as above Allergies: NKDA Family Hx: NC Social Hx: No T/A/D ROS: as per HPI, all other pertinent ros negative Home Meds: Home Medications Medication Instructions Recorded Allopurinol 300 mg PO DAILY 05/11/16 Amlodipine Besylate [Norvasc -] 5 mg PO DAILY 05/11/16 Atorvastatin Ca [Lipitor] 20 mg PO DAILY 05/11/16 Clopidogrel Bisulfate [Plavix -] 75 mg PO DAILY 05/11/16 Furosemide [Lasix -] 40 mg PO DAILY 05/11/16 Gabapentin [Neurontin] 800 mg PO TID 05/11/16 Linagliptin [Tradjenta] 5 mg PO DAILY 05/11/16 Mupirocin Ointment [Bactroban 2% 1 applic TP BID 05/11/16 Ointment -] Nystatin Powder [Nystop Powder -] 60 gm TP DAILY 05/11/16 Omeprazole 20 mg PO BID 05/11/16 Peg 400/Hypromellose/Glycerin 1 drop OU DAILY 05/11/16 [Artificial Tears Drops] Pramipexole Dihydrochloride 0.5 mg PO HS 05/11/16 [Mirapex -] Solifenacin Succinate [Vesicare -] 5 mg PO DAILY 05/11/16 Tamsulosin HCl [Flomax -] 0.4 mg PO DAILY 05/11/16 Trazodone HCl [Desyrel -] 50 mg PO HS 05/11/16 Docusate Sodium [Colace -] 100 mg PO TID capsule 07/19/16 Erythromycin 0.5% Eye Ointment 1 applic OD TID tube 07/19/16 [Erythromycin 0.5% Eye Ointment -] Losartan Potassium [Cozaar -] 25 mg PO DAILY tablet 07/19/16 Metoprolol Succinate [Toprol XL -] 25 mg PO DAILY tab.sr.24h 07/19/16 Neomycin/Polymyx/Hc Ophth Susp 1 drop OD Q4HWA drops 07/19/16 [Cortisporin *Ophthalmic Suspension* -] Nicotine Polacrilex [Nicorelief -] 2 mg BUC Q2H PRN #0 gum 07/19/16 Oxycodone HCl [Roxicodone -] 5 mg PO Q8H PRN #30 tablet MDD 3 07/19/16 Picc Line Flush [Picc Line Flush -] 8 ml IVPUSH PRN PRN #0 ml 07/20/16 Memantine HCl [Namenda Xr] 7 mg PO DAILY 07/22/16 Cefepime [Maxipime (Restricted To 2 gm IVPB DAILY #0 vial 07/23/16 Id) -] Metronidazole [Flagyl -] 500 mg PO TID tablet 07/23/16 Vital Signs Temperature 98.3 F 10/25/16 15:00 Pulse Rate 81 10/25/16 15:00 Respiratory Rate 20 10/25/16 15:00 Blood Pressure 122/82 10/25/16 15:00 O2 Sat by Pulse Oximetry (%) 92 L 10/24/16 22:00 Intake & Output 10/22/16 10/23/16 10/24/16 10/25/16 23:59 23:59 23:59 23:59 Intake Total 1264 1930 50 Output Total 200 675 425 Balance 1064 1255 -375 Weight 164 lb Gen: NAD, awake and alert HEENT: NC/AT, MMM, No JVD CVS: RRR, NO M/R Lungs: CTA, No R/W Abd: Soft NT/ND Ext: No edema, clubbing or cyanosis : No bladder distension Neuro: Awake and Alert CBC, BMP 10/25/16 05:35 10/25/16 05:35 Current Medications Amlodipine Besylate (Norvasc -) 5 mg PO DAILY [facility] Last Admin: 10/25/16 10:53 Dose: 5 mg Atorvastatin Calcium (Lipitor -) 20 mg PO [facility] Last Admin: 10/24/16 22:17 Dose: 20 mg Clopidogrel Bisulfate (Plavix -) 75 mg PO DAILY [facility] Last Admin: 10/25/16 10:52 Dose: 75 mg Docusate Sodium (Colace -) 100 mg PO TID [facility] Last Admin: 10/25/16 14:13 Dose: Not Given Gabapentin (Neurontin -) 600 mg PO BID [facility] Last Admin: 10/25/16 10:51 Dose: 600 mg Heparin Sodium (Porcine) (Heparin -) 5,000 unit SQ TID [facility] Last Admin: 10/25/16 14:13 Dose: 5,000 unit Piperacillin Sod/Tazobactam Sod (Zosyn 2.25gm Ivpb (Pre-Docked)) 50 mls @ 100 mls/hr IVPB Q8H-IV [facility] PRN Reason: Protocol Last Admin: 10/25/16 10:57 Dose: 100 mls/hr Insulin Aspart (Novolog Vial Sliding Scale -) 1 vial SQ ACHS [facility] PRN Reason: Protocol Last Admin: 10/25/16 13:18 Dose: 2 units Metoprolol Succinate (Toprol Xl -) 25 mg PO DAILY [facility] Last Admin: 10/25/16 10:52 Dose: 25 mg Non-Formulary Medication (Memantine Hcl [Namenda Xr]) 7 mg PO DAILY [facility] Non-Formulary Medication (Peg 400/Hypromellose/Glycerin [Artificial Tears Drops] ) 1 drop OU DAILY [facility] Oxycodone HCl (Roxicodone -) 5 mg PO Q8H PRN PRN Reason: PAIN Last Admin: 10/25/16 10:54 Dose: 5 mg Pantoprazole Sodium (Protonix -) 20 mg PO BID [facility] Last Admin: 10/25/16 10:51 Dose: 20 mg Pramipexole Dihydrochloride (Mirapex -) 0.5 mg PO HS [facility] Last Admin: 10/24/16 22:16 Dose: 0.5 mg Solifenacin (Vesicare -) 5 mg PO DAILY [facility] Last Admin: 10/25/16 10:53 Dose: 5 mg Tamsulosin HCl (Flomax -) 0.4 mg PO DAILY [facility] Last Admin: 10/25/16 10:51 Dose: 0.4 mg A/P 66 year old Gentleman with PMhx of CKD Stage 3 (baseline Cr of 1.4-1.7), Hypertension, CAD, COPD on Home O2, DM, Asthma, CVA, HLD, gout who presented with LE lesion/ulceration with elevated BUN/Cr that worsened initially during hospitalization. #JESÚS on CKD Etiology likely renal hypoperufsion in setting of systemic inflammation from LE wound/Bactermia + ARB/NSAID and diuretics Renal function with mild improvement off ARB and Lasix BP still marginal, Give NS x 1 L today Urine studies consistent with volume depletion/renal hypoperfusion Trend BUN/Cr Avoid NSAIDs, IV contrast if possible Renal US showed no obstruction or stones #LE Wound/MRSA Bactermia Continue Abx as per ID Dose Vanco by levels, todays level is 17 f/u repeat cultures #Hx of Hypertension BP now marginal hold ARB Goal MAP > 65 #Anemia Etiology iron of chronic disease/CKD Iron studies pending check stool occult blood Thank you Will follow Deven Layton DO
[2016-10-25] MEDS ORDERED: SODIUM CHLORIDE 1,000 ML IV SCH (16:15)
--- NOTE | 2016-10-25 21:22 | PN ---
Progress Note, Physician Chief Complaint: Not in distress History of Present Illness: Patient was seen and examined. Awake and alert. Chart was reviewed Denies chest pain, SOB or palpitation - Current Medication List Current Medications: Active Medications Amlodipine Besylate (Norvasc -) 5 mg PO DAILY [facility] Last Admin: 10/25/16 10:53 Dose: 5 mg Atorvastatin Calcium (Lipitor -) 20 mg PO HS [facility] Last Admin: 10/24/16 22:17 Dose: 20 mg Clopidogrel Bisulfate (Plavix -) 75 mg PO DAILY [facility] Last Admin: 10/25/16 10:52 Dose: 75 mg Docusate Sodium (Colace -) 100 mg PO TID [facility] Last Admin: 10/25/16 14:13 Dose: Not Given Gabapentin (Neurontin -) 600 mg PO BID [facility] Last Admin: 10/25/16 10:51 Dose: 600 mg Heparin Sodium (Porcine) (Heparin -) 5,000 unit SQ TID [facility] Last Admin: 10/25/16 14:13 Dose: 5,000 unit Sodium Chloride (Normal Saline -) 1,000 mls @ 83 mls/hr IV ASDIR [facility] Stop: 10/26/16 04:18 Last Admin: 10/25/16 17:23 Dose: 83 mls/hr Insulin Aspart (Novolog Vial Sliding Scale -) 1 vial SQ ACHS [facility] PRN Reason: Protocol Last Admin: 10/25/16 17:23 Dose: 4 units Metoprolol Succinate (Toprol Xl -) 25 mg PO DAILY [facility] Last Admin: 10/25/16 10:52 Dose: 25 mg Non-Formulary Medication (Memantine Hcl [Namenda Xr]) 7 mg PO DAILY [facility] Non-Formulary Medication (Peg 400/Hypromellose/Glycerin [Artificial Tears Drops] ) 1 drop OU DAILY [facility] Oxycodone HCl (Roxicodone -) 5 mg PO Q8H PRN PRN Reason: PAIN Last Admin: 10/25/16 10:54 Dose: 5 mg Pantoprazole Sodium (Protonix -) 20 mg PO BID [facility] Last Admin: 10/25/16 10:51 Dose: 20 mg Pramipexole Dihydrochloride (Mirapex -) 0.5 mg PO HS [facility] Last Admin: 10/24/16 22:16 Dose: 0.5 mg Solifenacin (Vesicare -) 5 mg PO DAILY [facility] Last Admin: 10/25/16 10:53 Dose: 5 mg Tamsulosin HCl (Flomax -) 0.4 mg PO DAILY [facility] Last Admin: 10/25/16 10:51 Dose: 0.4 mg - Objective Vital Signs: Vital Signs Temperature 98.8 F 10/25/16 18:32 Pulse Rate 82 10/25/16 18:32 Respiratory Rate 18 10/25/16 18:32 Blood Pressure 120/73 10/25/16 18:32 O2 Sat by Pulse Oximetry (%) 95 10/25/16 09:00 Neck: Yes: Supple Cardiovascular: Yes: Regular Rate and Rhythm, S1, S2 Respiratory: Yes: Diminished Gastrointestinal: Yes: Normal Bowel Sounds, Soft. No: Tenderness Edema: No Wound/Incision: Yes: Dressing Dry and Intact Additional Findings/Remarks: - Review of Systems Constitutional: denies: Chills, Fever Cardiovascular: denies: Chest Pain, Palpitations Respiratory: denies: Cough, Orthopnea, PND, SOB, SOB on Exertion Gastrointestinal: denies: Abdominal Pain, Constipation, Melena, Nausea, Vomiting Integumentary: reports: Wound Neurological: denies: Dizziness, Headache, Seizure, Syncope Labs: CBC, BMP 10/25/16 05:35 10/25/16 05:35 INR, PTT INR 1.31 (0.82-1.09) H 10/22/16 16:25 Problem List - Problems (1) Diabetic infection of right foot Code(s): E11.69 - TYPE 2 DIABETES MELLITUS WITH OTHER SPECIFIED COMPLICATION L08.9 - LOCAL INFECTION OF THE SKIN AND SUBCUTANEOUS TISSUE, UNSP (2) Coronary artery disease Code(s): I25.10 - ATHSCL HEART DISEASE OF [place] CORONARY ARTERY W/O ANG PCTRS Qualifiers: Coronary Disease-Associated Artery/Lesion type: [place] artery [place] vs. transplanted heart: [place] heart Associated angina: without angina Qualified Code(s): I25.10 - Atherosclerotic heart disease of [place] coronary artery without angina pectoris (3) CKD (chronic kidney disease) Code(s): N18.9 - CHRONIC KIDNEY DISEASE, UNSPECIFIED Qualifiers: Chronic kidney disease stage: stage 3 (moderate) Qualified Code(s): N18.3 - Chronic kidney disease, stage 3 (moderate) (4) Peripheral artery disease Code(s): I73.9 - PERIPHERAL VASCULAR DISEASE, UNSPECIFIED (5) Wound, open, foot Code(s): S91.309A - UNSPECIFIED OPEN WOUND, UNSPECIFIED FOOT, INITIAL ENCOUNTER Qualifiers: Encounter type: subsequent encounter Laterality: right Qualified Code(s): S91.301D - Unspecified open wound, right foot, subsequent encounter (6) Anemia Code(s): D64.9 - ANEMIA, UNSPECIFIED (7) COPD (chronic obstructive pulmonary disease) Code(s): J44.9 - CHRONIC OBSTRUCTIVE PULMONARY DISEASE, UNSPECIFIED Qualifiers : COPD type: COPD with acute lower respiratory infection Qualified Code(s): J44.0 - Chronic obstructive pulmonary disease with acute lower respiratory infection (8) Diabetes mellitus Code(s): E11.9 - TYPE 2 DIABETES MELLITUS WITHOUT COMPLICATIONS Qualifiers: Diabetes mellitus type: type 2 Diabetes mellitus complication status: with skin complications Diabetes mellitus complication detail: with dermatitis Diabetes mellitus extermination inspector insulin use: unspecified jail insulin use status Qualified Code(s): E11.620 - Type 2 diabetes mellitus with diabetic dermatitis; Z79.4 - [facility] (current) use of insulin (9) Hyperlipidemia Code(s): E78.5 - HYPERLIPIDEMIA, UNSPECIFIED Qualifiers: Hyperlipidemia type: pure hypercholesterolemia (10) Hypertension Code(s): I10 - ESSENTIAL (PRIMARY) HYPERTENSION Qualifiers: Hypertension type: essential hypertension Qualified Code(s): I10 - Essential (primary) hypertension (11) Preoperative cardiovascular examination Code(s): Z01.810 - ENCOUNTER FOR PREPROCEDURAL CARDIOVASCULAR EXAMINATION Assessment/Plan 1. Right foot ulcer for debridement 2. HTN/HCVD 3. PAD 4. Type 2 diabetes mellitus PLAN: 1. Continue Toprol XL and Amlodipine 2. Continue Lipitor 3. Continue Plavix 4. No absolute contraindication in proceeding with debridement in view of absence of ischemic symptoms, decompensated congestive heart failure or malignant arrhythmias. Further plans are to follow Branden Maddox MD
[2016-10-25] MEDS: ALBUTEROL SO4 2.5/IPRATROPIUM 0.5 INH SOL 3 ML VIAL.NEB. NEB PRN (21:28)
[2016-10-25] MEDS ORDERED: ALBUTEROL SO4 0.083% IH SOL 2.5 MG/3 ML VIAL.NEB. NEB ONE (21:46)
[2016-10-25] MEDS: PRAMIPEXOLE DIHYDROCHLORIDE 0.5 MG TABLET PO SCH (22:11)
[2016-10-25] MEDS: ATORVASTATIN CA 20 MG TABLET (FP) PO SCH (22:11)
[2016-10-26] MEDS: ALBUTEROL SO4 2.5/IPRATROPIUM 0.5 INH SOL 3 ML VIAL.NEB. NEB PRN ×4 (01:30→14:30)
--- NOTE | 2016-10-26 02:36 | HOSP ---
Subjective - Review of Symptoms Events since last encounter: Nurse called to report pt was SOB. He states that he gets nebulizers at home. He also reports that he takes 2 inhalers at home. These were not on his admission med list and at the time he couldn't remember any of his medications. When showed pictures of tudorza and advair inhalers he stated that those were the ones he takes. Pulmonary: Yes: Dyspnea, Cough Physical Examination Vital Signs: Vital Signs Temperature 98.9 F 10/25/16 22:00 Pulse Rate 82 10/25/16 22:00 Respiratory Rate 18 10/25/16 22:00 Blood Pressure 153/76 10/25/16 22:00 O2 Sat by Pulse Oximetry (%) 90 L 10/25/16 22:00 Cardiovascular: Yes: Regular Rate and Rhythm, S1, S2 Respiratory: Yes: Wheezes. No: Rales Gastrointestinal: Yes: WNL Labs: CBC, BMP 10/25/16 05:35 10/25/16 05:35 Hospitalist Encounter Assessment: COPD - restart home inhalers: advair and tudorza - duoneb ordered PRN - ok to continue IVF, no crackles auscultated
[2016-10-26 06:07] LABS: SERUM IRON 12 ug/dL (38-169); TOTAL IRON BINDING CAPACITY 270 ug/dL (250-450); TRANSFERRIN 221 mg/dL (200-370); UIBC 258 ug/dL (111-343)
[2016-10-26] MEDS: DOCUSATE SODIUM 100 MG CAPSULE (FP) PO SCH ×3 (07:00→22:34)
[2016-10-26] MEDS ORDERED: INSULIN (NOVOLOG) ASPART 100 UNITS/ML 10ML VIAL ONE ×2 (07:03→12:16)
[2016-10-26 08:33] LABS: CALCIUM 8.1 mg/dL (8.5-10.1); CREATININE 1.4 mg/dL (0.7-1.3)
[2016-10-26] MEDS ORDERED: FLUTICASONE/SALMETEROL 100 MCG/50 MCG DISKUS IH SCH ×2 (10:00→12:23)
--- NOTE | 2016-10-26 10:04 | PN ---
Progress Note (short form) - Note Progress Note: Chief Complaint: Events noted, notes reviewed, denies any chest pain or dyspnea , continues to report foot discomfort History of Present Illness: Seen and examined on telemetry. Events noted, notes reviewed, denies any chest pain or dyspnea, continues to report foot discomfort - Current Medication List Current Medications Aclidinium [place] (Tudorza -) 1 puff IH BID [facility] Albuterol/Ipratropium (Duoneb -) 1 amp NEB Q4H PRN PRN Reason: SHORTNESS OF BREATH Last Admin: 10/26/16 09:35 Dose: 1 amp Amlodipine Besylate (Norvasc -) 5 mg PO DAILY [facility] Last Admin: 10/25/16 10:53 Dose: 5 mg Atorvastatin Calcium (Lipitor -) 20 mg PO [facility] Last Admin: 10/25/16 22:11 Dose: 20 mg Clopidogrel Bisulfate (Plavix -) 75 mg PO DAILY [facility] Last Admin: 10/25/16 10:52 Dose: 75 mg Docusate Sodium (Colace -) 100 mg PO TID [facility] Last Admin: 10/26/16 07:00 Dose: Not Given Gabapentin (Neurontin -) 600 mg PO BID [facility] Last Admin: 10/25/16 22:11 Dose: 600 mg Heparin Sodium (Porcine) (Heparin -) 5,000 unit SQ TID [facility] Last Admin: 10/25/16 22:12 Dose: 5,000 unit Insulin Aspart (Novolog Vial Sliding Scale -) 1 vial SQ ACHS [facility] PRN Reason: Protocol Last Admin: 10/25/16 22:12 Dose: 2 units Metoprolol Succinate (Toprol Xl -) 25 mg PO DAILY [facility] Last Admin: 10/25/16 10:52 Dose: 25 mg Non-Formulary Medication (Memantine Hcl [Namenda Xr]) 7 mg PO DAILY [facility] Non-Formulary Medication (Peg 400/Hypromellose/Glycerin [Artificial Tears Drops] ) 1 drop OU DAILY [facility] Oxycodone HCl (Roxicodone -) 5 mg PO Q8H PRN PRN Reason: PAIN Last Admin: 10/25/16 10:54 Dose: 5 mg Pantoprazole Sodium (Protonix -) 20 mg PO BID [facility] Last Admin: 10/25/16 22:11 Dose: 20 mg Pramipexole Dihydrochloride (Mirapex -) 0.5 mg PO HS [facility] Last Admin: 10/25/16 22:11 Dose: 0.5 mg Fluticasone/Salmeterol (Advair 100mcg/50mcg -) 2 puff IH BID [facility] Solifenacin (Vesicare -) 5 mg PO DAILY [facility] Last Admin: 10/25/16 10:53 Dose: 5 mg Tamsulosin HCl (Flomax -) 0.4 mg PO DAILY [facility] Last Admin: 10/25/16 10:51 Dose: 0.4 mg Review of Systems Constitutional: denies Chills or Fever Respiratory: denies Dyspnea or Cough Cardiovascular: As noted above Gastrointestinal: denies: Nausea, Vomiting, Diarrhea, Constipation or Abdominal Discomfort Genitourinary: No Symptoms Reported Musculoskeletal: As noted above - Objective Vital Signs: Last Vital Signs Temp Pulse Resp BP Pulse Ox 97.9 F 90 20 148/64 94 L 10/26/16 07:07 10/26/16 09:34 10/26/16 07:07 10/26/16 07:07 10/26/16 09:34 Neck: Supple Neagtive JVD NO Bruit Cardiovascular: S1 S2 Regular Rate and Rhythm Respiratory: Diminished Gastrointestinal: Soft Benign Normal Bowel Sounds Ext: No Edema Labs: CBC, BMP 10/25/16 05:35 10/26/16 06:55 INR, PTT INR 1.31 (0.82-1.09) H 10/22/16 16:25 Assessment/Plan ASSESSMENT: 1. Right diabetic foot ulcer for ulcer debridement, known PAD 2. HTN 3. Diabetes mellitus 4. Anemia 5. CKD PLAN: 1. Continue Toprol XL 2. Continue Norvasc 3. Continue Lipitor 4 Continue Plavix 5. There are no absolute contraindication in proceeding with the planned procedure considering that there is no clinical evidence of ACS and/or de- compensated and/or malignant ventricular arrhythmia Demetra Layne MD
[2016-10-26] MEDS: ACLIDINIUM BROMIDE 400 MCG/INH AERO.POWD IH SCH ×2 (10:23→22:36)
[2016-10-26] MEDS: CLOPIDOGREL BISULFATE 75 MG TABLET (FP) PO SCH (10:24)
[2016-10-26] MEDS: amLODIPine BESYLATE 5 MG TABLET (FP) PO SCH (10:24)
[2016-10-26] MEDS: TAMSULOSIN HCL 0.4 MG CAP.ER.24H (FP) PO SCH (10:24)
[2016-10-26] MEDS: PANTOPRAZOLE 20 MG TABLET (FP) PO SCH ×2 (10:24→22:34)
[2016-10-26] MEDS: SOLIFENACIN SUCCINATE 5 MG TAB (FP) PO SCH (10:24)
[2016-10-26] MEDS: GABAPENTIN 300 MG CAPSULE (FP) PO SCH ×2 (10:29→22:34)
[2016-10-26] MEDS ORDERED: ACETYLCYSTEINE 20% 200MG/ML 4 ML VIAL *FOR ORAL / INH USE ONLY NEB PRN (10:35)
--- NOTE | 2016-10-26 10:52 | SPA.PREOP ---
Addendum entered and electronically signed by Jennie Garrido PA 10/26/16 11:02: Original Note: - PRE-OP NOTE Dx: Right foot ulcer Planned Procedure: right foot debridement Surgeon: Dr. Sanders Last Vital Signs Temp Pulse Resp BP Pulse Ox 97.9 F 90 20 148/64 94 L 10/26/16 07:07 10/26/16 09:34 10/26/16 07:07 10/26/16 07:07 10/26/16 09:34 Lab Results WBC 6.8 K/mm3 (4.0-10.0) 10/25/16 05:35 RBC 3.95 M/mm3 (4.00-5.60) L 10/25/16 05:35 Hgb 8.0 GM/dL (11.7-16.9) L 10/25/16 05:35 Hct 26.9 % (35.4-49) L 10/25/16 05:35 MCV 68.1 fl (80-96) L 10/25/16 05:35 MCHC 29.8 g/dl (32.0-35.9) L 10/25/16 05:35 RDW 21.3 % (11.9-15.9) H 10/25/16 05:35 Plt Count 183 K/MM3 (134-434) 10/25/16 05:35 Sodium 142 mmol/L (136-145) 10/26/16 06:55 Potassium 4.1 mmol/L (3.5-5.1) 10/26/16 06:55 Chloride 107 mmol/L (98-107) 10/26/16 06:55 Carbon Dioxide 24 mmol/L (21-32) 10/26/16 06:55 Anion Gap 11 (8-16) 10/26/16 06:55 BUN 14 mg/dL (7-18) D 10/26/16 06:55 Creatinine 1.4 mg/dL (0.7-1.3) H D 10/26/16 06:55 Random Glucose 142 mg/dL (74-106) H D 10/26/16 06:55 Calcium 8.1 mg/dL (8.5-10.1) L 10/26/16 06:55 Blood Type B POSITIVE 10/22/16 16:25 Antibody Screen Positive H 10/22/16 16:25 INR 1.31 (0.82-1.09) H 10/22/16 16:25 - IMAGING Chest X-ray: Report Reviewed (10/22 congestive changes) EKG: Report Reviewed (10/22 NSR 86 BPM) - ASSESSMENT/PLAN 1. Make NPO after midnight except po meds, may take cardiac meds with sip of water 2. GI/DVT PPX-hold SQ heparin in the am 3. Medical optimization / clearance in the chart from 10/26 from cardiology 4. Ordered T&S Visit type - Case Type Case Type: ED Admission - Emergency Emergency Visit: Yes ED Registration Date: 10/22/16 Care time: The patient presented to the Emergency Department on the above date and was hospitalized for further evaluation of their emergent condition. - New patient This patient is new to me today: Yes Date on this admission: 10/26/16 - Critical Care Critical Care patient: No
--- NOTE | 2016-10-26 10:57 | PN ---
Progress Note (short form) - Note Progress Note: Renal follow up for JESÚS on CKD Pt seen and examined at the bedside Complains of nasal and throat congestion reports that he is unable to bring up his mucus no sob or chest pain had some dypnea last night, IVF was held at that time and restarted later Vital Signs Temperature 97.9 F 10/26/16 07:07 Pulse Rate 90 10/26/16 09:34 Respiratory Rate 20 10/26/16 07:07 Blood Pressure 148/64 10/26/16 07:07 O2 Sat by Pulse Oximetry (%) 94 L 10/26/16 09:34 Intake & Output 10/23/16 10/24/16 10/25/16 10/26/16 23:59 23:59 23:59 23:59 Intake Total 1264 1930 499 332 Output Total 200 675 425 450 Balance 1064 1255 74 -118 Gen: NAD, awake and alert CVS: RRR, NO M/R Lungs: CTA, No R/W Abd: Soft NT/ND Ext: No edema, clubbing or cyanosis CBC, BMP 10/25/16 05:35 10/26/16 06:55 Laboratory Tests 10/26/16 06:55 Calcium 8.1 L Current Medications Acetylcysteine (Mucomyst 20 Oral / Inh Use Only*) 200 mg NEB Q4H PRN PRN Reason: NASAL CONGESTION Aclidinium [place] (Tudorza -) 1 puff IH BID [facility] Last Admin: 10/26/16 10:23 Dose: 1 puff Albuterol/Ipratropium (Duoneb -) 1 amp NEB Q4H PRN PRN Reason: SHORTNESS OF BREATH Last Admin: 10/26/16 09:35 Dose: 1 amp Amlodipine Besylate (Norvasc -) 5 mg PO DAILY [facility] Last Admin: 10/26/16 10:24 Dose: 5 mg Atorvastatin Calcium (Lipitor -) 20 mg PO HS [facility] Last Admin: 10/25/16 22:11 Dose: 20 mg Clopidogrel Bisulfate (Plavix -) 75 mg PO DAILY [facility] Last Admin: 10/26/16 10:24 Dose: 75 mg Docusate Sodium (Colace -) 100 mg PO TID [facility] Last Admin: 10/26/16 07:00 Dose: Not Given Gabapentin (Neurontin -) 600 mg PO BID [facility] Last Admin: 10/26/16 10:29 Dose: 600 mg Heparin Sodium (Porcine) (Heparin -) 5,000 unit SQ TID [facility] Last Admin: 10/25/16 22:12 Dose: 5,000 unit Insulin Aspart (Novolog Vial Sliding Scale -) 1 vial SQ ACHS [facility] PRN Reason: Protocol Last Admin: 10/25/16 22:12 Dose: 2 units Metoprolol Succinate (Toprol Xl -) 25 mg PO DAILY [facility] Last Admin: 10/25/16 10:52 Dose: 25 mg Non-Formulary Medication (Memantine Hcl [Namenda Xr]) 7 mg PO DAILY [facility] Non-Formulary Medication (Peg 400/Hypromellose/Glycerin [Artificial Tears Drops] ) 1 drop OU DAILY [facility] Oxycodone HCl (Roxicodone -) 5 mg PO Q8H PRN PRN Reason: PAIN Last Admin: 10/25/16 10:54 Dose: 5 mg Pantoprazole Sodium (Protonix -) 20 mg PO BID [facility] Last Admin: 10/26/16 10:24 Dose: 20 mg Pramipexole Dihydrochloride (Mirapex -) 0.5 mg PO HS [facility] Last Admin: 10/25/16 22:11 Dose: 0.5 mg Fluticasone/Salmeterol (Advair 100mcg/50mcg -) 2 puff IH BID [facility] Solifenacin (Vesicare -) 5 mg PO DAILY [facility] Last Admin: 10/26/16 10:24 Dose: 5 mg Tamsulosin HCl (Flomax -) 0.4 mg PO DAILY [facility] Last Admin: 10/26/16 10:24 Dose: 0.4 mg A/P 66 year old Gentleman with PMhx of CKD Stage 3 (baseline Cr of 1.4-1.7), Hypertension, CAD, COPD on Home O2, DM, Asthma, CVA, HLD, gout who presented with LE lesion/ulceration with elevated BUN/Cr that worsened initially during hospitalization. #JESÚS on CKD Etiology likely renal hypoperufsion in setting of systemic inflammation from LE wound/Bactermia + ARB/NSAID and diuretics Renal function now improved to baseline s/p 1L of IVF continue to hold ARB and diuretics for now no signs of volume overload #LE Wound/MRSA Bactermia Continue Abx as per ID Dose Vanco by levels, todays level is 17 f/u repeat cultures #Dyspnea/SOB Continue Nebs and Advair Added Mucomyst Q4h PRN Deven Layton DO
--- NOTE | 2016-10-26 11:41 | PN ---
Physical Exam: SUBJECTIVE: Patient seen and examined. He c/o dryness in his nose and throat d/ t supplemental o2. He denies wheezing, sob. Pain medication helps foot pain Events: - Overnight SOB and dyspena, home COPD meds restarted - Fluids held, restarted once resp status stable OBJECTIVE: Vital Signs Period Temp Pulse Resp BP Sys/Cintron Pulse Ox Last 24 Hr 97.9 F-98.9 F 79-90 18-20 120-153/64-82 90-94 PE Neuro: alert awake, cn 2-12 intact Pulm: CTAB, + NC CV: s1 s2 rrr no mrg Abd: s nt nd + bs Ext: R foot swelling, R planter wound with serous drainage, +2 edema RLL CMP Sodium 142 mmol/L (136-145) 10/26/16 06:55 Potassium 4.1 mmol/L (3.5-5.1) 10/26/16 06:55 Chloride 107 mmol/L (98-107) 10/26/16 06:55 Carbon Dioxide 24 mmol/L (21-32) 10/26/16 06:55 Anion Gap 11 (8-16) 10/26/16 06:55 BUN 14 mg/dL (7-18) D 10/26/16 06:55 Creatinine 1.4 mg/dL (0.7-1.3) H D 10/26/16 06:55 Creat Clearance w eGFR 33.60 (>60) 10/25/16 05:35 Calcium 8.1 mg/dL (8.5-10.1) L 10/26/16 06:55 Total Bilirubin 0.4 mg/dL (0.2-1.0) 10/25/16 05:35 AST 20 U/L (15-37) D 10/25/16 05:35 ALT 16 U/L (12-78) 10/25/16 05:35 Alkaline Phosphatase 139 U/L (45-117) H 10/25/16 05:35 Total Protein 6.1 g/dl (6.4-8.2) L 10/25/16 05:35 Albumin 2.3 g/dl (3.4-5.0) L 10/25/16 05:35 10/24/16 10/24/16 10/26/16 06:00 06:00 06:55 Iron 12 L TIBC 270 Iron Saturation 4 L Transferrin 221 Ferritin 132.947 Random Vancomycin 9.598 10/26/16 06:55 Random Vancomycin 9.598 Active Medications Generic Name Dose Route Start Last Admin Trade Name Freq PRN Reason Stop Dose Admin Acetylcysteine 200 mg 10/26/16 10:35 Mucomyst 20 Oral / Inh Use Only* NEB Q4H PRN NASAL CONGESTION Aclidinium [place] 1 puff 10/26/16 10:00 10/26/16 10:23 Tudorza - IH 1 puff BID [facility] Administration Albuterol/Ipratropium 1 amp 10/25/16 21:47 10/26/16 09:35 Duoneb - NEB 1 amp Q4H PRN Administration SHORTNESS OF BREATH Amlodipine Besylate 5 mg 10/23/16 10:00 10/26/16 10:24 Norvasc - PO 5 mg DAILY [facility] Administration Atorvastatin Calcium 20 mg 10/23/16 22:00 10/25/16 22:11 Lipitor - PO 20 mg HS [facility] Administration Clopidogrel Bisulfate 75 mg 10/23/16 10:00 10/26/16 10:24 Plavix - PO 75 mg DAILY [facility] Administration Docusate Sodium 100 mg 10/22/16 22:00 10/26/16 07:00 Colace - PO Not Given TID [facility] Gabapentin 600 mg 10/24/16 22:00 10/26/16 10:29 Neurontin - PO 600 mg BID [facility] Administration Heparin Sodium (Porcine) 5,000 unit 10/23/16 22:00 10/25/16 22:12 Heparin - SQ 5,000 unit TID [facility] Administration Sodium Chloride 1,000 mls @ 50 mls/hr 10/27/16 00:01 1/2 Normal Saline IV 10/27/16 16:00 ASDIR [facility] Insulin Aspart 1 vial 10/23/16 14:18 10/25/16 22:12 Novolog Vial Sliding Scale - SQ 2 units ACHS [facility] Administration Protocol Metoprolol Succinate 25 mg 10/23/16 10:00 10/25/16 10:52 Toprol Xl - PO 25 mg DAILY [facility] Administration Non-Formulary Medication 7 mg 10/23/16 10:00 Memantine Hcl [Namenda Xr] PO DAILY [facility] Non-Formulary Medication 1 drop 10/23/16 10:00 Peg 400/Hypromellose/Glycerin [Artificial Tears Drops] OU DAILY [facility] Oxycodone HCl 5 mg 10/22/16 20:48 10/25/16 10:54 Roxicodone - PO 5 mg Q8H PRN Administration PAIN Pantoprazole Sodium 20 mg 10/22/16 22:00 10/26/16 10:24 Protonix - PO 20 mg BID [facility] Administration Pramipexole Dihydrochloride 0.5 mg 10/22/16 22:00 10/25/16 22:11 Mirapex - PO 0.5 mg HS [facility] Administration Fluticasone/Salmeterol 2 puff 10/26/16 10:00 Advair 100mcg/50mcg - IH BID [facility] Solifenacin 5 mg 10/23/16 10:00 10/26/16 10:24 Vesicare - PO 5 mg DAILY [facility] Administration Tamsulosin HCl 0.4 mg 10/23/16 10:00 10/26/16 10:24 Flomax - PO 0.4 mg DAILY [facility] Administration Assessment: 65 year old male with PMH: COPD (3L O2 at home), asthma, SAMMY, DM, GI bleed, CAD, CVA (left sided weakness), HTN, HLD, and gout, Former smoker, Beta Thalasemia, admitted with fever and reopened foot wound, now with sepsis. Plan: 1. Severe sepsis probable MRSA bacteremia and osteomyelitis / cellulitis - Random vanco level 9.5 - Dose Vanco today per ID - ECHO today 2. Diabetic foot ulcer/osteo - Surgery with Dr. Sanders Tuesday - For lower ext doppler US today - Per Cardiology no absolute contraindication to proceed with surgery - NPO after midnight 3. JESÚS on CKD 3 - Likely pre renal in setting of systemic infection d/t L foot and NSAID use - s/p 1L NS overnight - Cr now at baseline - Continue to hold Losartan, Januvia, Lasix, Allopurinol - Discussed above with renal 4. DM II - ISS, BGM ACHS - Hold PO meds 5. Diabetic neuropathy vs hx of seizures - Neurontin 600 BID (Neurontin 800 TID home dose) 6. HTN/CAD/CVA - Amlodipine 5mg daily - Metoprolol 25mg daily - Continue Plavix - Hold ARB 7. Anemia/hx of Best thalassemia - Iron sat is 4 - Start Ferrous sulfate TID - Hold venofer infusion until infx cleared 8. Gout - Hold Allopurinol in setting of JESÚS Visit type - Emergency Visit Emergency Visit: Yes ED Registration Date: 10/22/16 Care time: The patient presented to the Emergency Department on the above date and was hospitalized for further evaluation of their emergent condition. - New Patient This patient is new to me today: No - Critical Care Critical Care patient: No
[2016-10-26] MEDS: METOPROLOL SUCCINATE 25 MG TAB.SR.24H (FP) PO SCH (12:51)
[2016-10-26] MEDS: INSULIN SLIDING SCALE (NOVOLOG) 1 VIAL SQ SCH ×3 (12:55→23:33)
--- NOTE | 2016-10-26 14:50 | PN ---
Progress Note (short form) - Note Progress Note: no complaints OOB to chair no chest pain no fevers no SOB Vital Signs Period Temp Pulse Resp BP Sys/Cintron Pulse Ox Last 24 Hr 97.9 F-98.9 F 79-90 18-20 120-167/64-86 90-94 no conjunctival hemorrhages cor-rrr lungs clear abd soft,nt ext right foot bandaged echo no vegetation noted CBC, BMP 10/25/16 05:35 10/26/16 06:55 Laboratory Tests 10/25/16 10/26/16 05:35 06:55 Vancomycin Trough 18.916 H* D Random Vancomycin 9.598 Microbiology 10/22/16 16:30 Foot - Right Plantar Gram Stain - Final 10/22/16 16:30 Foot - Right Plantar Wound Culture - Preliminary Mr S Aureus Group D Strep Or Entero Coccus 10/25/16 05:35 Blood - Peripheral Venous Blood Culture - Preliminary NO GROWTH OBTAINED AFTER 24 HOURS, INCUBATION TO CONTINUE FOR 4 DAYS. 10/25/16 05:35 Blood - Peripheral Venous Blood Culture - Preliminary NO GROWTH OBTAINED AFTER 24 HOURS, INCUBATION TO CONTINUE FOR 4 DAYS. 10/22/16 16:25 Blood - Peripheral Venous Blood Culture - Final Mr S Aureus 10/22/16 16:25 Blood - Peripheral Venous Blood Culture - Final Mr S Aureus 10/22/16 05:40 Urine - Urine Clean Catch Urine Culture - Final NO GROWTH OBTAINED a/p MRSA bacteremia MRSA foot infection for operative debridement in am continue vancomycin renal function improved will require half-way iv antibiotics
[2016-10-26] MEDS: HEPARIN NA (PORCINE) 5,000 UNITS/ML 1ML VIAL SQ SCH ×3 (14:58→22:35)
[2016-10-26] MEDS ORDERED: VANCOMYCIN 1 GRAM (PRE-DOCKED) 1,000 MG/250 ML BAG IVPB SCH (16:00)
[2016-10-26] MEDS ORDERED: FERROUS SO4 325 MG TABLET (FP) PO SCH (17:30)
[2016-10-26] MEDS ORDERED: PT OWN MED DRAWER 7, Y5N ONE (20:23)
[2016-10-26] MEDS: ATORVASTATIN CA 20 MG TABLET (FP) PO SCH (22:34)
[2016-10-26] MEDS: PRAMIPEXOLE DIHYDROCHLORIDE 0.5 MG TABLET PO SCH (22:36)
[2016-10-27] MEDS ORDERED: SODIUM CHLORIDE 0.45% 1,000 ML IV SCH ×2 (00:01→07:22)
[2016-10-27] MEDS: oxyCODONE HCL 5 MG TABLET PO PRN (01:03)
[2016-10-27] MEDS: INSULIN SLIDING SCALE (NOVOLOG) 1 VIAL SQ SCH ×5 (05:34→21:52)
[2016-10-27] MEDS: HEPARIN NA (PORCINE) 5,000 UNITS/ML 1ML VIAL SQ SCH (05:44)
[2016-10-27] MEDS: DOCUSATE SODIUM 100 MG CAPSULE (FP) PO SCH ×2 (05:44→21:52)
[2016-10-27] MEDS ORDERED: oxyCODONE HCL 5 MG TABLET PO PRN ×2 (07:22→17:11)
[2016-10-27] MEDS ORDERED: ALBUTEROL SO4 2.5/IPRATROPIUM 0.5 INH SOL 3 ML VIAL.NEB. NEB PRN ×2 (07:22→17:11)
[2016-10-27] MEDS ORDERED: ACETYLCYSTEINE 20% 200MG/ML 4 ML VIAL *FOR ORAL / INH USE ONLY NEB PRN ×2 (07:22→17:11)
[2016-10-27] MEDS: MEMANTINE HCL 7 MG PO SCH ×3 (07:27→07:43)
[2016-10-27 08:04] LABS: BASOPHIL 1.3 % (0-2.0); EOSINOPHIL 5.1 % (0-4.5); MCH 20.5 pg (25.7-33.7); MCHC 30.5 g/dl (32.0-35.9); MEAN CELL VOLUME 67.4 fl (80-96); MEAN PLT VOLUME 8.8 fl (7.5-11.1); NEUTROPHILS 66.2 % (42.8-82.8); PLATELET COUNT 208 K/MM3 (134-434); RDW 21.5 % (11.9-15.9); WHITE BLOOD COUNT 7.1 K/mm3 (4.0-10.0)
[2016-10-27] MEDS: FERROUS SO4 325 MG TABLET (FP) PO SCH ×3 (08:19→18:14)
[2016-10-27] MEDS ORDERED: TAMSULOSIN HCL 0.4 MG CAP.ER.24H (FP) PO SCH (08:30)
[2016-10-27 08:31] LABS: CALCIUM 8.9 mg/dL (8.5-10.1); CREATININE 1.1 mg/dL (0.7-1.3); MAGNESIUM 1.6 mg/dL (1.8-2.4); PHOSPHOROUS 2.7 mg/dL (2.5-4.9)
--- NOTE | 2016-10-27 08:46 | PN ---
Progress Note, Physician Chief Complaint: ID Vancomycin Afebrile - Current Medication List Current Medications: Active Medications Acetylcysteine (Mucomyst 20 Oral / Inh Use Only*) 200 mg NEB Q4H PRN PRN Reason: NASAL CONGESTION Aclidinium [place] (Tudorza -) 1 puff IH BID [facility] Albuterol/Ipratropium (Duoneb -) 1 amp NEB Q4H PRN PRN Reason: SHORTNESS OF BREATH Amlodipine Besylate (Norvasc -) 5 mg PO DAILY [facility] Atorvastatin Calcium (Lipitor -) 20 mg PO HS [facility] Clopidogrel Bisulfate (Plavix -) 75 mg PO DAILY [facility] Docusate Sodium (Colace -) 100 mg PO TID [facility] Ferrous Sulfate (Feosol -) 325 mg PO TIDCM [facility] Last Admin: 10/27/16 08:19 Dose: Not Given Gabapentin (Neurontin -) 600 mg PO BID [facility] Heparin Sodium (Porcine) (Heparin -) 5,000 unit SQ TID [facility] Sodium Chloride (1/2 Normal Saline) 1,000 mls @ 50 mls/hr IV ASDIR [facility] Stop: 10/27/16 16:00 Insulin Aspart (Novolog Vial Sliding Scale -) 1 vial SQ ACHS [facility] PRN Reason: Protocol Metoprolol Succinate (Toprol Xl -) 25 mg PO DAILY [facility] Non-Formulary Medication (Memantine Hcl [Namenda Xr]) 7 mg PO DAILY [facility] Non-Formulary Medication (Peg 400/Hypromellose/Glycerin [Artificial Tears Drops] ) 1 drop OU DAILY [facility] Oxycodone HCl (Roxicodone -) 5 mg PO Q8H PRN PRN Reason: PAIN Pantoprazole Sodium (Protonix -) 20 mg PO BID [facility] Pramipexole Dihydrochloride (Mirapex -) 0.5 mg PO HS [facility] Fluticasone/Salmeterol (Advair 100mcg/50mcg -) 1 puff IH BID [facility] Solifenacin (Vesicare -) 5 mg PO DAILY [facility] Tamsulosin HCl (Flomax -) 0.4 mg PO DAILY@0830 [facility] Last Admin: 10/27/16 08:19 Dose: Not Given Vancomycin HCl (Vancomycin (Pre-Docked)) 1,000 mg IVPB DAILY@1600 [facility] PRN Reason: Protocol - Objective Vital Signs: Vital Signs Temperature 99.1 F 10/27/16 07:36 Pulse Rate 98 H 10/27/16 07:36 Respiratory Rate 20 10/27/16 07:36 Blood Pressure 154/79 10/27/16 07:36 O2 Sat by Pulse Oximetry (%) 94 L 10/26/16 21:00 Constitutional: Yes: Well Nourished, No Distress Eyes: Yes: WNL, Occular Prosthesis HENT: Yes: WNL, Atraumatic Neck: Yes: WNL, Supple Cardiovascular: Yes: Regular Rate and Rhythm, S1, S2 Respiratory: Yes: WNL, Regular, CTA Bilaterally Gastrointestinal: Yes: WNL, Normal Bowel Sounds, Soft Edema: No Labs: CBC, BMP 10/27/16 06:00 INR, PTT INR 1.31 (0.82-1.09) H 10/22/16 16:25 Problem List - Problems (1) Diabetic foot infection Code(s): E11.69 - TYPE 2 DIABETES MELLITUS WITH OTHER SPECIFIED COMPLICATION L08.9 - LOCAL INFECTION OF THE SKIN AND SUBCUTANEOUS TISSUE, UNSP (2) Severe sepsis Code(s): A41.9 - SEPSIS, UNSPECIFIED ORGANISM (3) Multiple drug resistant organism (MDRO) culture positive Code(s): Z16.24 - RESISTANCE TO MULTIPLE ANTIBIOTICS (4) Bacteremia due to Gram-positive bacteria Code(s): A49.9 - BACTERIAL INFECTION, UNSPECIFIED Assessment/Plan Laboratory Tests 10/26/16 10/27/16 10/27/16 06:55 06:00 06:00 WBC 7.1 Hgb 8.9 L D Plt Count 208 BUN Pending Creatinine Pending Random Vancomycin 9.598 Assessment Diabetic foot infection right foot with abscess and osteomyelitis MRSA bacteremia History of VREF Plan Continue vanco increase dose keep level about 15-20ug Rectal swab for VREF Surgery this afternoon Emmanuel BANEGAS
--- NOTE | 2016-10-27 09:00 | PN ---
Progress Note, Physician Chief Complaint: Not in distress History of Present Illness: Patient was seen and examined. Awake and alert. Chart was reviewed Denies chest pain, SOB or palpitation - Current Medication List Current Medications: Active Medications Acetylcysteine (Mucomyst 20 Oral / Inh Use Only*) 200 mg NEB Q4H PRN PRN Reason: NASAL CONGESTION Aclidinium [place] (Tudorza -) 1 puff IH BID [facility] Albuterol/Ipratropium (Duoneb -) 1 amp NEB Q4H PRN PRN Reason: SHORTNESS OF BREATH Amlodipine Besylate (Norvasc -) 5 mg PO DAILY [facility] Atorvastatin Calcium (Lipitor -) 20 mg PO HS [facility] Clopidogrel Bisulfate (Plavix -) 75 mg PO DAILY [facility] Docusate Sodium (Colace -) 100 mg PO TID [facility] Ferrous Sulfate (Feosol -) 325 mg PO TIDCM [facility] Last Admin: 10/27/16 08:19 Dose: Not Given Gabapentin (Neurontin -) 600 mg PO BID [facility] Heparin Sodium (Porcine) (Heparin -) 5,000 unit SQ TID [facility] Sodium Chloride (1/2 Normal Saline) 1,000 mls @ 50 mls/hr IV ASDIR [facility] Stop: 10/27/16 16:00 Vancomycin HCl 1,250 mg/ (Dextrose) 250 mls @ 250 mls/hr IVPB DAILY [facility] PRN Reason: Protocol Insulin Aspart (Novolog Vial Sliding Scale -) 1 vial SQ ACHS [facility] PRN Reason: Protocol Metoprolol Succinate (Toprol Xl -) 25 mg PO DAILY [facility] Non-Formulary Medication (Memantine Hcl [Namenda Xr]) 7 mg PO DAILY [facility] Non-Formulary Medication (Peg 400/Hypromellose/Glycerin [Artificial Tears Drops] ) 1 drop OU DAILY [facility] Oxycodone HCl (Roxicodone -) 5 mg PO Q8H PRN PRN Reason: PAIN Pantoprazole Sodium (Protonix -) 20 mg PO BID [facility] Pramipexole Dihydrochloride (Mirapex -) 0.5 mg PO HS [facility] Fluticasone/Salmeterol (Advair 100mcg/50mcg -) 1 puff IH BID [facility] Solifenacin (Vesicare -) 5 mg PO DAILY [facility] Tamsulosin HCl (Flomax -) 0.4 mg PO DAILY@0830 [facility] Last Admin: 10/27/16 08:19 Dose: Not Given - Objective Vital Signs: Vital Signs Temperature 99.1 F 10/27/16 07:36 Pulse Rate 98 H 10/27/16 07:36 Respiratory Rate 20 10/27/16 07:36 Blood Pressure 154/79 10/27/16 07:36 O2 Sat by Pulse Oximetry (%) 94 L 10/26/16 21:00 Neck: Yes: Supple Cardiovascular: Yes: Regular Rate and Rhythm, S1, S2 Respiratory: Yes: Diminished Gastrointestinal: Yes: Normal Bowel Sounds, Soft. No: Tenderness Edema: No Wound/Incision: Yes: Dressing Dry and Intact Additional Findings/Remarks: - Review of Systems Constitutional: denies: Chills, Fever Cardiovascular: denies: Chest Pain, Palpitations Respiratory: denies: Cough, Orthopnea, PND, SOB, SOB on Exertion Gastrointestinal: denies: Abdominal Pain, Constipation, Melena, Nausea, Vomiting Integumentary: reports: Wound Neurological: denies: Dizziness, Headache, Seizure, Syncope Labs: CBC, BMP 10/27/16 06:00 10/27/16 06:00 Problem List - Problems (1) Diabetic infection of right foot Code(s): E11.69 - TYPE 2 DIABETES MELLITUS WITH OTHER SPECIFIED COMPLICATION L08.9 - LOCAL INFECTION OF THE SKIN AND SUBCUTANEOUS TISSUE, UNSP (2) Coronary artery disease Code(s): I25.10 - ATHSCL HEART DISEASE OF [place] CORONARY ARTERY W/O ANG PCTRS Qualifiers: Coronary Disease-Associated Artery/Lesion type: [place] artery [place] vs. transplanted heart: [place] heart Associated angina: without angina Qualified Code(s): I25.10 - Atherosclerotic heart disease of [place] coronary artery without angina pectoris (3) CKD (chronic kidney disease) Code(s): N18.9 - CHRONIC KIDNEY DISEASE, UNSPECIFIED Qualifiers: Chronic kidney disease stage: stage 3 (moderate) Qualified Code(s): N18.3 - Chronic kidney disease, stage 3 (moderate) (4) Peripheral artery disease Code(s): I73.9 - PERIPHERAL VASCULAR DISEASE, UNSPECIFIED (5) Wound, open, foot Code(s): S91.309A - UNSPECIFIED OPEN WOUND, UNSPECIFIED FOOT, INITIAL ENCOUNTER Qualifiers: Encounter type: subsequent encounter Laterality: right Qualified Code(s): S91.301D - Unspecified open wound, right foot, subsequent encounter (6) Anemia Code(s): D64.9 - ANEMIA, UNSPECIFIED (7) COPD (chronic obstructive pulmonary disease) Code(s): J44.9 - CHRONIC OBSTRUCTIVE PULMONARY DISEASE, UNSPECIFIED Qualifiers : COPD type: COPD with acute lower respiratory infection Qualified Code(s): J44.0 - Chronic obstructive pulmonary disease with acute lower respiratory infection (8) Diabetes mellitus Code(s): E11.9 - TYPE 2 DIABETES MELLITUS WITHOUT COMPLICATIONS Qualifiers: Diabetes mellitus type: type 2 Diabetes mellitus complication status: with skin complications Diabetes mellitus complication detail: with dermatitis Diabetes mellitus [place] insulin use: unspecified mcfp insulin use status Qualified Code(s): E11.620 - Type 2 diabetes mellitus with diabetic dermatitis; Z79.4 - assisted (current) use of insulin (9) Hyperlipidemia Code(s): E78.5 - HYPERLIPIDEMIA, UNSPECIFIED Qualifiers: Hyperlipidemia type: pure hypercholesterolemia Qualified Code(s): E78.00 - Pure hypercholesterolemia, unspecified; E78.0 - Pure hypercholesterolemia (10) Hypertension Code(s): I10 - ESSENTIAL (PRIMARY) HYPERTENSION Qualifiers: Hypertension type: essential hypertension Qualified Code(s): I10 - Essential (primary) hypertension (11) Preoperative cardiovascular examination Code(s): Z01.810 - ENCOUNTER FOR PREPROCEDURAL CARDIOVASCULAR EXAMINATION Assessment/Plan 1. Right foot ulcer for debridement 2. HTN/HCVD 3. PAD 4. Type 2 diabetes mellitus PLAN: 1. Continue Toprol XL and Amlodipine 2. Continue Lipitor 3. Continue Plavix 4. Post op Care Further plans are to follow Branden Maddox MD
[2016-10-27] MEDS ORDERED: GABAPENTIN 300 MG CAPSULE (FP) PO SCH ×2 (10:00→22:00)
[2016-10-27] MEDS ORDERED: FLUTICASONE/SALMETEROL 100 MCG/50 MCG DISKUS IH SCH (10:00)
[2016-10-27] MEDS ORDERED: PANTOPRAZOLE 20 MG TABLET (FP) PO SCH (10:00)
[2016-10-27] MEDS ORDERED: CLOPIDOGREL BISULFATE 75 MG TABLET (FP) PO SCH (10:00)
[2016-10-27] MEDS ORDERED: METOPROLOL SUCCINATE 25 MG TAB.SR.24H (FP) PO SCH (10:00)
[2016-10-27] MEDS ORDERED: MEMANTINE HCL 7 MG PO SCH (10:00)
[2016-10-27] MEDS ORDERED: ACLIDINIUM BROMIDE 400 MCG/INH AERO.POWD IH SCH (10:00)
[2016-10-27] MEDS ORDERED: amLODIPine BESYLATE 5 MG TABLET (FP) PO SCH (10:00)
[2016-10-27] MEDS ORDERED: SOLIFENACIN SUCCINATE 5 MG TAB (FP) PO SCH (10:00)
[2016-10-27] MEDS ORDERED: MAGNESIUM SULF 50% (8.12 MEQ/2 ML-1 GM VIAL) IVPB ONE ×2 (10:42→10:45)
--- NOTE | 2016-10-27 10:48 | PN ---
Physical Exam: SUBJECTIVE: Patient seen and examined. He says his legs feel hard inside. Denies fever, chills, sob, wheezing. OBJECTIVE: Vital Signs Period Temp Pulse Resp BP Sys/Cintron Pulse Ox Last 24 Hr 98.2 F-99.1 F 97-112 18-24 131-178/77-96 93-94 PE Neuro: alert awake, cn 2-12 intact Pulm: CTAB CV: s1 s2 rrr no mrg Abd: s nt nd + bs Ext: R foot swelling, R planter wound with serous drainage, +1 edema RLL, L foot planter dried calus CBCD WBC 7.1 K/mm3 (4.0-10.0) 10/27/16 06:00 RBC 4.32 M/mm3 (4.00-5.60) 10/27/16 06:00 Hgb 8.9 GM/dL (11.7-16.9) L D 10/27/16 06:00 Hct 29.1 % (35.4-49) L 10/27/16 06:00 MCV 67.4 fl (80-96) L 10/27/16 06:00 MCHC 30.5 g/dl (32.0-35.9) L 10/27/16 06:00 RDW 21.5 % (11.9-15.9) H 10/27/16 06:00 Plt Count 208 K/MM3 (134-434) 10/27/16 06:00 MPV 8.8 fl (7.5-11.1) 10/27/16 06:00 CMP Sodium 140 mmol/L (136-145) 10/27/16 06:00 Potassium 4.0 mmol/L (3.5-5.1) 10/27/16 06:00 Chloride 103 mmol/L (98-107) 10/27/16 06:00 Carbon Dioxide 28 mmol/L (21-32) 10/27/16 06:00 Anion Gap 9 (8-16) 10/27/16 06:00 BUN 10 mg/dL (7-18) D 10/27/16 06:00 Creatinine 1.1 mg/dL (0.7-1.3) D 10/27/16 06:00 Creat Clearance w eGFR 33.60 (>60) 10/25/16 05:35 Calcium 8.9 mg/dL (8.5-10.1) 10/27/16 06:00 Total Bilirubin 0.4 mg/dL (0.2-1.0) 10/25/16 05:35 AST 20 U/L (15-37) D 10/25/16 05:35 ALT 16 U/L (12-78) 10/25/16 05:35 Alkaline Phosphatase 139 U/L (45-117) H 10/25/16 05:35 Total Protein 6.1 g/dl (6.4-8.2) L 10/25/16 05:35 Albumin 2.3 g/dl (3.4-5.0) L 10/25/16 05:35 10/27/16 06:00 Magnesium 1.6 L D Active Medications Generic Name Dose Route Start Last Admin Trade Name Freq PRN Reason Stop Dose Admin Acetylcysteine 200 mg 10/27/16 07:22 Mucomyst 20 Oral / Inh Use Only* NEB Q4H PRN NASAL CONGESTION Aclidinium [place] 1 puff 10/27/16 10:00 Tudorza - IH BID [facility] Albuterol/Ipratropium 1 amp 10/27/16 07:22 Duoneb - NEB Q4H PRN SHORTNESS OF BREATH Amlodipine Besylate 5 mg 10/27/16 10:00 Norvasc - PO DAILY [facility] Atorvastatin Calcium 20 mg 10/27/16 22:00 Lipitor - PO HS [facility] Clopidogrel Bisulfate 75 mg 10/27/16 10:00 Plavix - PO DAILY [facility] Docusate Sodium 100 mg 10/27/16 14:00 Colace - PO TID [facility] Ferrous Sulfate 325 mg 10/27/16 08:00 10/27/16 08:19 Feosol - PO Not Given TIDCM [facility] Gabapentin 600 mg 10/27/16 10:00 Neurontin - PO BID [facility] Heparin Sodium (Porcine) 5,000 unit 10/27/16 14:00 Heparin - SQ TID [facility] Sodium Chloride 1,000 mls @ 50 mls/hr 10/27/16 07:22 1/2 Normal Saline IV 10/27/16 16:00 ASDIR [facility] Vancomycin HCl 1,250 mg/ 250 mls @ 166.667 mls/hr 10/27/16 16:00 Dextrose IVPB DAILY@1600 [facility] Protocol Insulin Aspart 1 vial 10/27/16 11:00 Novolog Vial Sliding Scale - SQ ACHS [facility] Protocol Magnesium Sulfate 2 gm 10/27/16 10:24 Magnesium Sulfate IVPB 10/27/16 10:25 ONCE ONE Magnesium Sulfate 2 gm 10/27/16 10:42 Magnesium Sulfate IVPB 10/27/16 10:43 ONCE ONE Metoprolol Succinate 25 mg 10/27/16 10:00 Toprol Xl - PO DAILY [facility] Non-Formulary Medication 7 mg 10/27/16 10:00 Memantine Hcl [Namenda Xr] PO DAILY [facility] Non-Formulary Medication 1 drop 10/27/16 10:00 Peg 400/Hypromellose/Glycerin [Artificial Tears Drops] OU DAILY [facility] Oxycodone HCl 5 mg 10/27/16 07:22 Roxicodone - PO Q8H PRN PAIN Pantoprazole Sodium 20 mg 10/27/16 10:00 10/27/16 10:35 Protonix - PO Not Given BID [facility] Pramipexole Dihydrochloride 0.5 mg 10/27/16 22:00 Mirapex - PO HS [facility] Fluticasone/Salmeterol 1 puff 10/27/16 10:00 Advair 100mcg/50mcg - IH BID [facility] Solifenacin 5 mg 10/27/16 10:00 10/27/16 10:34 Vesicare - PO Not Given DAILY [facility] Tamsulosin HCl 0.4 mg 10/27/16 08:30 10/27/16 08:19 Flomax - PO Not Given DAILY@0830 [facility] Imaging: - ECHO 10/26: LV size, fxn normal, no wall motion abnormality, mild MR, TR, RVSP 40-50mmhg, Pulm HTN, Assessment: 65 year old male with PMH: COPD (3L O2 at home), asthma, SAMMY, DM, GI bleed, CAD, CVA (left sided weakness), HTN, HLD, and gout, Former smoker, Beta Thalasemia, admitted with fever and reopened foot wound, now with sepsis. Plan: 1. Severe sepsis probable MRSA bacteremia and osteomyelitis / cellulitis - Vanco 1,125mg daily - Monitor levels for goal levels 15-20 per ID - No vegetations on ECHO 2. Diabetic foot ulcer/osteo - Surgery with Dr. Sanders today - Per Cardiology no absolute contraindication to proceed with surgery 3. JESÚS on CKD 3 - Likely pre renal in setting of systemic infection d/t L foot and NSAID use - Cr wnl - Resume Losartan 25mg daily today - Hold Lasix for now 4. DM II - ISS, BGM ACHS - Hold PO meds 5. Diabetic neuropathy vs hx of seizures - Resume home dose neurontin tomorrow 6. HTN/CAD/CVA - Resume Losartan 25mg daily - Amlodipine 5mg daily - Metoprolol 25mg daily - Continue Plavix/ASA 7. Anemia/hx of Best thalassemia - Ferrous sulfate TID - Hold venofer infusion until infx cleared (iron sat 4) 8. Gout - Hold Allopurinol in setting of JESÚS 9. Acute on chronic COPD exacerbation - Now stable - Continue Advair/Tudorza - PRN nebs - Supplemental o2 for spo2 >92% 10. Dementia - Stable - Namenda XR unavailable, will start 5mg BID 11. Hypomagnesemia - Replete mg 2gm x1 now Visit type - Emergency Visit Emergency Visit: Yes ED Registration Date: 10/22/16 Care time: The patient presented to the Emergency Department on the above date and was hospitalized for further evaluation of their emergent condition. - New Patient This patient is new to me today: No - Critical Care Critical Care patient: No
[2016-10-27] MEDS ORDERED: LOSARTAN POTASSIUM 25 MG TABLET PO SCH (11:00)
[2016-10-27] MEDS ORDERED: INSULIN (NOVOLOG) ASPART 100 UNITS/ML 10ML VIAL ONE (11:08)
[2016-10-27] MEDS ORDERED: DOCUSATE SODIUM 100 MG CAPSULE (FP) PO SCH (14:00)
[2016-10-27] MEDS ORDERED: HEPARIN NA (PORCINE) 5,000 UNITS/ML 1ML VIAL SQ SCH (14:00)
[2016-10-27] MEDS ORDERED: PHENYLEPHRINE HCL 10 MG/1 ML SINGLE DOSE VIAL ONE (15:36)
[2016-10-27] MEDS ORDERED: ETOMIDATE 20 MG/10 ML AMPUL IVPUSH ONE (15:36)
[2016-10-27] MEDS ORDERED: PROPOFOL 20 ML ONE ×2 (15:36)
[2016-10-27] MEDS ORDERED: VANCOMYCIN 1,250 MG in DEXTROSE 5%-WATER - 250 ML IVPB SCH (16:00)
[2016-10-27] MEDS ORDERED: VANCOMYCIN 1 GRAM (PRE-DOCKED) 1,000 MG/250 ML BAG IVPB SCH (16:00)
--- NOTE | 2016-10-27 16:27 | OP ---
Operative Note - Note: Operative Date: 10/27/16 Pre-Operative Diagnosis: Osteomyelitis right transmetatarsals Operation: Excisional debridment of right foot wound with resection of 2nd, 3rd and 4th metatarsal heads. Findings: Destruction of distal metatarsal heads with chronic scar tissue in deep plantar space. Post-Operative Diagnosis: Same as Pre-op Surgeon: Jay Sanders Anesthesiologist/ACCOUNT PROCESSOR: Jose Juan Garcia Anesthesia: General Specimens Removed: Heads of multiple metatarsal, skin, subQ, tendon Estimated Blood Loss (mls): 30 Operative Report Dictated: Yes
[2016-10-27] MEDS ORDERED: ONDANSETRON 4 MG/2 ML VIAL IVPUSH PRN (16:34)
--- NOTE | 2016-10-27 16:35 | PN ---
Progress Note (short form) - Note Progress Note: Renal follow up for JESÚS on CKD Pt seen and examined at the bedside no acute complaints no chest pain or sob Vital Signs Temperature 98.3 F 10/27/16 14:36 Pulse Rate 84 10/27/16 14:36 Respiratory Rate 16 10/27/16 14:36 Blood Pressure 135/76 10/27/16 14:36 O2 Sat by Pulse Oximetry (%) 93 L 10/27/16 10:23 Intake & Output 10/24/16 10/25/16 10/26/16 10/27/16 23:59 23:59 23:59 23:59 Intake Total 1930 713 219 8945 Output Total 792 416 5286 1100 Balance 1255 74 -1218 -50 Gen: NAD, awake and alert CVS: RRR, NO M/R Lungs: CTA, No R/W Abd: Soft NT/ND Ext: No edema, clubbing or cyanosis CBC, BMP 10/27/16 06:00 10/27/16 06:00 Current Medications Acetylcysteine (Mucomyst 20 Oral / Inh Use Only*) 200 mg NEB Q4H PRN PRN Reason: NASAL CONGESTION Last Admin: 10/27/16 10:47 Dose: 200 mg Aclidinium [place] (Tudorza -) 1 puff IH BID [facility] Last Admin: 10/27/16 10:48 Dose: 1 puff Albuterol/Ipratropium (Duoneb -) 1 amp NEB Q4H PRN PRN Reason: SHORTNESS OF BREATH Last Admin: 10/27/16 10:46 Dose: 1 amp Amlodipine Besylate (Norvasc -) 5 mg PO DAILY [facility] Last Admin: 10/27/16 10:47 Dose: 5 mg Atorvastatin Calcium (Lipitor -) 20 mg PO [facility] Clopidogrel Bisulfate (Plavix -) 75 mg PO DAILY [facility] Last Admin: 10/27/16 10:00 Dose: Not Given Docusate Sodium (Colace -) 100 mg PO TID [facility] Last Admin: 10/27/16 13:09 Dose: Not Given Ferrous Sulfate (Feosol -) 325 mg PO TIDCM [facility] Last Admin: 10/27/16 11:34 Dose: Not Given Gabapentin (Neurontin -) 600 mg PO BID [facility] Stop: 10/27/16 23:59 Last Admin: 10/27/16 10:47 Dose: 600 mg Gabapentin (Neurontin -) 800 mg PO TID [facility] Heparin Sodium (Porcine) (Heparin -) 5,000 unit SQ TID [facility] Vancomycin HCl 1,250 mg/ (Dextrose) 250 mls @ 166.667 mls/hr IVPB DAILY@1600 [facility] PRN Reason: Protocol Insulin Aspart (Novolog Vial Sliding Scale -) 1 vial SQ ACHS [facility] PRN Reason: Protocol Last Admin: 10/27/16 11:24 Dose: Not Given Losartan Potassium (Cozaar -) 25 mg PO DAILY [facility] Last Admin: 10/27/16 11:18 Dose: 25 mg Metoprolol Succinate (Toprol Xl -) 25 mg PO DAILY [facility] Last Admin: 10/27/16 10:47 Dose: 25 mg Oxycodone HCl (Roxicodone -) 5 mg PO Q8H PRN PRN Reason: PAIN Last Admin: 10/27/16 13:10 Dose: 5 mg Pantoprazole Sodium (Protonix -) 20 mg PO BID [facility] Last Admin: 10/27/16 10:35 Dose: Not Given Pramipexole Dihydrochloride (Mirapex -) 0.5 mg PO HS [facility] Fluticasone/Salmeterol (Advair 100mcg/50mcg -) 1 puff IH BID [facility] Last Admin: 10/27/16 10:48 Dose: 1 puff Solifenacin (Vesicare -) 5 mg PO DAILY [facility] Last Admin: 10/27/16 10:34 Dose: Not Given Tamsulosin HCl (Flomax -) 0.4 mg PO DAILY@0830 [facility] Last Admin: 10/27/16 08:19 Dose: Not Given A/P 66 year old Gentleman with PMhx of CKD Stage 3 (baseline Cr of 1.4-1.7), Hypertension, CAD, COPD on Home O2, DM, Asthma, CVA, HLD, gout who presented with LE lesion/ulceration with elevated BUN/Cr that worsened initially during hospitalization. #JESÚS on CKD Renal function now improved to below baseline off IVF can resume ARB and lasix as needed Trend BUN/Cr #LE Wound/MRSA Bactermia Continue Abx as per ID Dose Vanco by levels f/u repeat cultures Debridement as per Vascular today #Dyspnea/SOB Continue Nebs and Advair Mucomyst Q4h PRN Deven Layton DO
[2016-10-27] MEDS ORDERED: LACTATED RINGERS SOLUTION 1,000 ML IV SCH (16:45)
[2016-10-27] MEDS: VANCOMYCIN 1,250 MG in DEXTROSE 5%-WATER - 250 ML IVPB SCH (18:14)
[2016-10-27] MEDS ORDERED: ALBUTEROL SO4 0.083% IH SOL 2.5 MG/3 ML VIAL.NEB. NEB ONE (19:00)
[2016-10-27] MEDS ORDERED: ACETYLCYSTEINE 20% 200MG/ML 4 ML VIAL *FOR ORAL / INH USE ONLY IH ONE (19:00)
[2016-10-27] MEDS ORDERED: PT OWN MED DRAWER 7, Y5N ONE (21:28)
[2016-10-27] MEDS: PRAMIPEXOLE DIHYDROCHLORIDE 0.5 MG TABLET PO SCH (21:51)
[2016-10-27] MEDS: ATORVASTATIN CA 20 MG TABLET (FP) PO SCH (21:51)
[2016-10-27] MEDS: PANTOPRAZOLE 20 MG TABLET (FP) PO SCH (21:51)
[2016-10-27] MEDS: FLUTICASONE/SALMETEROL 100 MCG/50 MCG DISKUS IH SCH (21:51)
[2016-10-27] MEDS: ACLIDINIUM BROMIDE 400 MCG/INH AERO.POWD IH SCH (21:52)
[2016-10-27] MEDS ORDERED: ATORVASTATIN CA 20 MG TABLET (FP) PO SCH (22:00)
[2016-10-27] MEDS ORDERED: PRAMIPEXOLE DIHYDROCHLORIDE 0.5 MG TABLET PO SCH (22:00)
[2016-10-28] MEDS ORDERED: INSULIN (NOVOLOG) ASPART 100 UNITS/ML 10ML VIAL ONE ×2 (06:27→11:07)
[2016-10-28] MEDS: DOCUSATE SODIUM 100 MG CAPSULE (FP) PO SCH ×3 (06:41→21:48)
[2016-10-28] MEDS: INSULIN SLIDING SCALE (NOVOLOG) 1 VIAL SQ SCH ×4 (06:53→21:47)
[2016-10-28] MEDS ORDERED: oxyCODONE HCL 5 MG TABLET PO PRN (08:03)
--- NOTE | 2016-10-28 08:07 | PN ---
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 foot debridment under general anesthesia History of Present Illness: post op day one - Current Medication List Current Medications: Active Medications Aclidinium [place] (Tudorza -) 1 puff IH BID [facility] Last Admin: 10/27/16 21:52 Dose: Not Given Albuterol/Ipratropium (Duoneb -) 1 amp [facility]B Q4H PRN PRN Reason: SHORTNESS OF BREATH Amlodipine Besylate (Norvasc -) 5 mg PO DAILY [facility] Atorvastatin Calcium (Lipitor -) 20 mg PO HS [facility] Last Admin: 10/27/16 21:51 Dose: 20 mg Clopidogrel Bisulfate (Plavix -) 75 mg PO DAILY [facility] Docusate Sodium (Colace -) 100 mg PO TID [facility] Last Admin: 10/28/16 06:41 Dose: Not Given Ferrous Sulfate (Feosol -) 325 mg PO TIDCM [facility] Last Admin: 10/27/16 18:14 Dose: 325 mg Gabapentin (Neurontin -) 800 mg PO TID [facility] Heparin Sodium (Porcine) (Heparin -) 5,000 unit SQ TID [facility] Vancomycin HCl 1,250 mg/ (Dextrose) 250 mls @ 166.667 mls/hr IVPB DAILY@1600 [facility] PRN Reason: Protocol Last Admin: 10/27/16 18:14 Dose: 166.667 mls/hr Insulin Aspart (Novolog Vial Sliding Scale -) 1 vial SQ ACHS [facility] PRN Reason: Protocol Last Admin: 10/28/16 06:53 Dose: 2 units Losartan Potassium (Cozaar -) 25 mg PO DAILY [facility] Metoprolol Succinate (Toprol Xl -) 25 mg PO DAILY [facility] Pantoprazole Sodium (Protonix -) 20 mg PO BID [facility] Last Admin: 10/27/16 21:51 Dose: 20 mg Pramipexole Dihydrochloride (Mirapex -) 0.5 mg PO HS [facility] Last Admin: 10/27/16 21:51 Dose: 0.5 mg Fluticasone/Salmeterol (Advair 100mcg/50mcg -) 1 puff IH BID [facility] Last Admin: 10/27/16 21:51 Dose: Not Given Solifenacin (Vesicare -) 5 mg PO DAILY [facility] Tamsulosin HCl (Flomax -) 0.4 mg PO DAILY@0830 [facility] - Objective Vital Signs: Vital Signs Temperature 99.1 F 10/28/16 06:24 Pulse Rate 84 10/28/16 06:24 Respiratory Rate 20 10/28/16 06:24 Blood Pressure 124/60 10/28/16 06:24 O2 Sat by Pulse Oximetry (%) 94 L 10/27/16 21:00 Constitutional: Yes: Well Nourished, Mild Distress Cardiovascular: Yes: WNL Respiratory: Yes: WNL Gastrointestinal: Yes: WNL Labs: INR, PTT INR 1.31 (0.82-1.09) H 10/22/16 16:25 Assessment/Plan patient in pain, said pain medication doesnt last the eight hours it is prescribed for, only lasts four hours. Patient is ordered for oxycodone 5mg Q8H , will change to [id number], otherwise no adverse effect of anesthetic. However, will defer to managing physician if they believe [id number] is more appropriate.
[2016-10-28 08:08] LABS: BASOPHIL 1.5 % (0-2.0); EOSINOPHIL 3.7 % (0-4.5); MCH 20.7 pg (25.7-33.7); MCHC 30.3 g/dl (32.0-35.9); MEAN CELL VOLUME 68.2 fl (80-96); MEAN PLT VOLUME 9.3 fl (7.5-11.1); NEUTROPHILS 71.8 % (42.8-82.8); PLATELET COUNT 219 K/MM3 (134-434)
--- NOTE | 2016-10-28 08:42 | PN ---
Progress Note (short form) - Note Progress Note: POD 1 No c/o Dressing dry Continue wound care IV abx as per ID ?VNS vs SNF Problem List - Problems (1) Diabetic infection of right foot Code(s): E11.69 - TYPE 2 DIABETES MELLITUS WITH OTHER SPECIFIED COMPLICATION L08.9 - LOCAL INFECTION OF THE SKIN AND SUBCUTANEOUS TISSUE, UNSP
[2016-10-28 08:43] LABS: CALCIUM 8.4 mg/dL (8.5-10.1); CREATININE 1.3 mg/dL (0.7-1.3); MAGNESIUM 1.8 mg/dL (1.8-2.4)
--- NOTE | 2016-10-28 08:43 | OP ---
DATE OF OPERATION: 10/27/2016 SURGEON: Jay Arana MD PROCEDURE: Excisional debridement of right foot wound with resection of the 2nd, 3rd, and 4th metatarsal heads. PREOPERATIVE DIAGNOSIS: Osteomyelitis of multiple metatarsals. POSTOPERATIVE DIAGNOSIS: Osteomyelitis of multiple metatarsals. ANESTHESIA: General. ANESTHESIOLOGIST: OPERATIVE FINDINGS: There was a wound in the plantar aspect of the distal right foot extending down to bone. After removal of the skin and subcutaneous tissue, destruction of the metatarsal heads was identified. There was no gross pus, but abundant scar tissue around the bones. OPERATIVE PROCEDURE: Following routine patient identification with site and side verification, general anesthesia was induced. The right foot was prepped with Betadine solution. A timeout was performed. An elliptical incision was made around the opening in the plantar aspect of the right foot and carried into the deep space of the foot using cautery. The skin and subcutaneous tissue was removed, leaving a wound with exposed metatarsals. The metatarsal bones were resected back using a bone cutter, a rongeur and rasp to smooth. Cartilage from the phalanx bones was removed, as well, with a rongeur. The wound was irrigated with saline, packed open with iodoform gauze and a sterile wrap. The patient was taken to the recovery room in stable condition. JAY ARANA M.D. PATRICIA/[id number]
[2016-10-28] MEDS: TAMSULOSIN HCL 0.4 MG CAP.ER.24H (FP) PO SCH (09:58)
[2016-10-28] MEDS: FERROUS SO4 325 MG TABLET (FP) PO SCH ×3 (09:58→18:16)
[2016-10-28] MEDS: METOPROLOL SUCCINATE 25 MG TAB.SR.24H (FP) PO SCH (09:59)
[2016-10-28] MEDS: GABAPENTIN 400 MG CAPSULE (FP) PO SCH ×3 (09:59→21:47)
[2016-10-28] MEDS: amLODIPine BESYLATE 5 MG TABLET (FP) PO SCH (09:59)
[2016-10-28] MEDS ORDERED: GABAPENTIN 400 MG CAPSULE (FP) PO SCH (10:00)
[2016-10-28] MEDS: LOSARTAN POTASSIUM 25 MG TABLET PO SCH (10:00)
[2016-10-28] MEDS: CLOPIDOGREL BISULFATE 75 MG TABLET (FP) PO SCH (10:00)
[2016-10-28] MEDS: PANTOPRAZOLE 20 MG TABLET (FP) PO SCH ×2 (10:00→21:48)
[2016-10-28] MEDS: HEPARIN NA (PORCINE) 5,000 UNITS/ML 1ML VIAL SQ SCH ×3 (10:00→21:48)
[2016-10-28] MEDS ORDERED: HEPARIN NA (PORCINE) 5,000 UNITS/ML 1ML VIAL SQ SCH (10:00)
[2016-10-28] MEDS: SOLIFENACIN SUCCINATE 5 MG TAB (FP) PO SCH (10:00)
[2016-10-28] MEDS: ACLIDINIUM BROMIDE 400 MCG/INH AERO.POWD IH SCH ×2 (10:04→21:48)
[2016-10-28] MEDS: FLUTICASONE/SALMETEROL 100 MCG/50 MCG DISKUS IH SCH ×2 (10:04→21:48)
[2016-10-28] MEDS ORDERED: PT OWN MED DRAWER 7, Y5N ONE ×2 (10:44→21:14)
--- NOTE | 2016-10-28 11:47 | PN ---
Progress Note (short form) - Note Progress Note: Renal follow up for JESÚS on CKD Pt seen and examined at the bedside s/p Excisional debridment of right foot wound with resection of 2nd, 3rd and 4th metatarsal heads. no acute complaints no sob or chest pain Vital Signs Temperature 99.1 F 10/28/16 06:24 Pulse Rate 84 10/28/16 06:24 Respiratory Rate 20 10/28/16 06:24 Blood Pressure 124/60 10/28/16 06:24 O2 Sat by Pulse Oximetry (%) 94 L 10/27/16 21:00 Intake & Output 10/25/16 10/26/16 10/27/16 10/28/16 23:59 23:59 23:59 23:59 Intake Total 645 447 1963 440 Output Total 425 1750 1100 500 Balance 74 -1218 650 -60 Gen: NAD, awake and alert CVS: RRR, NO M/R Lungs: CTA, No R/W Abd: Soft NT/ND Ext: No edema, clubbing or cyanosis CBC, BMP 10/28/16 06:30 10/28/16 06:30 Laboratory Tests 10/28/16 06:30 Calcium 8.4 L Magnesium 1.8 Current Medications Aclidinium [place] (Tudorza -) 1 puff IH BID [facility] Last Admin: 10/28/16 10:04 Dose: 1 inh Albuterol/Ipratropium (Duoneb -) 1 amp NEB Q4H PRN PRN Reason: SHORTNESS OF BREATH Last Admin: 10/28/16 09:20 Dose: 1 amp Amlodipine Besylate (Norvasc -) 5 mg PO DAILY [facility] Last Admin: 10/28/16 09:59 Dose: 5 mg Atorvastatin Calcium (Lipitor -) 20 mg PO HS [facility] Last Admin: 10/27/16 21:51 Dose: 20 mg Clopidogrel Bisulfate (Plavix -) 75 mg PO DAILY [facility] Last Admin: 10/28/16 10:00 Dose: 75 mg Docusate Sodium (Colace -) 100 mg PO TID [facility] Last Admin: 10/28/16 06:41 Dose: Not Given Ferrous Sulfate (Feosol -) 325 mg PO TIDCM [facility] Last Admin: 10/28/16 09:58 Dose: 325 mg Gabapentin (Neurontin -) 800 mg PO TID [facility] Last Admin: 10/28/16 09:59 Dose: 800 mg Heparin Sodium (Porcine) (Heparin -) 5,000 unit SQ TID [facility] Last Admin: 10/28/16 10:00 Dose: 5,000 unit Vancomycin HCl 1,250 mg/ (Dextrose) 250 mls @ 166.667 mls/hr IVPB DAILY@1600 [facility] PRN Reason: Protocol Last Admin: 10/27/16 18:14 Dose: 166.667 mls/hr Insulin Aspart (Novolog Vial Sliding Scale -) 1 vial SQ ACHS [facility] PRN Reason: Protocol Last Admin: 10/28/16 11:07 Dose: 4 units Losartan Potassium (Cozaar -) 25 mg PO DAILY [facility] Last Admin: 10/28/16 10:00 Dose: 25 mg Metoprolol Succinate (Toprol Xl -) 25 mg PO DAILY [facility] Last Admin: 10/28/16 09:59 Dose: 25 mg Oxycodone HCl (Roxicodone -) 5 mg PO Q4H PRN PRN Reason: PAIN Last Admin: 10/28/16 11:02 Dose: 5 mg Pantoprazole Sodium (Protonix -) 20 mg PO BID [facility] Last Admin: 10/28/16 10:00 Dose: 20 mg Pramipexole Dihydrochloride (Mirapex -) 0.5 mg PO HS [facility] Last Admin: 10/27/16 21:51 Dose: 0.5 mg Fluticasone/Salmeterol (Advair 100mcg/50mcg -) 1 puff IH BID [facility] Last Admin: 10/28/16 10:04 Dose: 1 inh Solifenacin (Vesicare -) 5 mg PO DAILY [facility] Last Admin: 10/28/16 10:00 Dose: 5 mg Tamsulosin HCl (Flomax -) 0.4 mg PO DAILY@0830 [facility] Last Admin: 10/28/16 09:58 Dose: 0.4 mg A/P 66 year old Gentleman with PMhx of CKD Stage 3 (baseline Cr of 1.4-1.7), Hypertension, CAD, COPD on Home O2, DM, Asthma, CVA, HLD, gout who presented with LE lesion/ulceration with elevated BUN/Cr that worsened initially during hospitalization. #JESÚS on CKD Renal function stable at baseline continue to monitor BUN/Cr Restarted on Losartan and Lasix #LE Wound/MRSA Bactermia s/p Excisional debridment of right foot wound with resection of 2nd, 3rd and 4th metatarsal heads. continue Vanco dosed by levels #Acute on chronic anemia iron studies show iron deficiency oral iron for now as pt with recent bacteremia transfuse as needed Deven Layton DO
--- NOTE | 2016-10-28 12:09 | PN ---
Physical Exam: SUBJECTIVE: Patient seen and examined. States he feels well. Denies any pain. OBJECTIVE: Vital Signs Period Temp Pulse Resp BP Sys/Cintron Pulse Ox Last 24 Hr 97.8 F-99.1 F 78-95 12-20 116-183/60-122 94-98 GENERAL: The patient is awake, alert, and fully oriented, in no acute distress. HEAD: Normal with no signs of trauma. EYES: PERRL, extraocular movements intact, sclera anicteric, conjunctiva clear. No ptosis. ENT: Ears normal, nares patent, oropharynx clear without exudates, moist mucous membranes. NECK: Trachea midline, full range of motion, supple. LUNGS: Breath sounds diminished bilaterally HEART: Regular rate and rhythm ABDOMEN: Soft, nontender, nondistended, normoactive bowel sounds, no guarding, no rebound, no hepatosplenomegaly, no masses. NEUROLOGICAL: Normal speech, gait not observed. PSYCH: Normal mood, normal affect. Laboratory Results - last 24 hr 10/27/16 10/27/16 10/28/16 17:34 21:19 06:30 WBC 9.0 RBC 3.97 L Hgb 8.2 L Hct 27.1 L MCV 68.2 L MCHC 30.3 L RDW 21.0 H Plt Count 219 MPV 9.3 Neutrophils % 71.8 Lymphocytes % 13.2 D Monocytes % 9.8 Eosinophils % 3.7 Basophils % 1.5 Nucleated RBCs Cancelled Hypersegmented Neuts Cancelled Toxic Granulation Cancelled Dohle Bodies Cancelled Orville Rods Cancelled Polychromasia Cancelled Hypochromic-Microcytic Cancelled Poikilocytosis Cancelled Basophilic Stippling Cancelled Anisocytosis Cancelled Microcytosis Cancelled Macrocytosis Cancelled Spherocytes Cancelled Siderocytes Cancelled Sickle Cells Cancelled Target Cells Cancelled Tear Drop Cells Cancelled Ovalocytes Cancelled Stomatocytes Cancelled Helmet Cells Cancelled Patel-[place] Bodies Cancelled [place] Rings Cancelled Edd Cells Cancelled Acanthocytes (Spur) Cancelled Rouleaux Cancelled Fragmented RBCs Cancelled Schistocytes Cancelled Morphology Comment Cancelled Sodium Potassium Chloride Carbon Dioxide Anion Gap BUN Creatinine POC Glucometer 136 222 Random Glucose Calcium Magnesium 10/28/16 10/28/16 10/28/16 06:30 06:52 11:05 WBC RBC Hgb Hct MCV MCHC RDW Plt Count MPV Neutrophils % Lymphocytes % Monocytes % Eosinophils % Basophils % Nucleated RBCs Hypersegmented Neuts Toxic Granulation Dohle Bodies Orville Rods Polychromasia Hypochromic-Microcytic Poikilocytosis Basophilic Stippling Anisocytosis Microcytosis Macrocytosis Spherocytes Siderocytes Sickle Cells Target Cells Tear Drop Cells Ovalocytes Stomatocytes Helmet Cells Patel-[place] Bodies [place] Rings Edd Cells Acanthocytes (Spur) Rouleaux Fragmented RBCs Schistocytes Morphology Comment Sodium 137 Potassium 4.3 Chloride 98 Carbon Dioxide 29 Anion Gap 10 BUN 13 D Creatinine 1.3 POC Glucometer 170 249 Random Glucose 145 H D Calcium 8.4 L Magnesium 1.8 Active Medications Generic Name Dose Route Start Last Admin Trade Name Freq PRN Reason Stop Dose Admin Aclidinium [place] 1 puff 10/27/16 22:00 10/28/16 10:04 Tudorza - IH 1 inh BID MISSAEL Administration Albuterol/Ipratropium 1 amp 10/27/16 17:11 10/28/16 09:20 Duoneb - NEB 1 amp Q4H PRN Administration SHORTNESS OF BREATH Amlodipine Besylate 5 mg 10/28/16 10:00 10/28/16 09:59 Norvasc - PO 5 mg DAILY MISSAEL Administration Atorvastatin Calcium 20 mg 10/27/16 22:00 10/27/16 21:51 Lipitor - PO 20 mg HS MISSAEL Administration Clopidogrel Bisulfate 75 mg 10/28/16 10:00 10/28/16 10:00 Plavix - PO 75 mg DAILY MISSAEL Administration Docusate Sodium 100 mg 10/27/16 22:00 10/28/16 06:41 Colace - PO Not Given TID MISSAEL Ferrous Sulfate 325 mg 10/27/16 17:30 10/28/16 09:58 Feosol - PO 325 mg TIDCM MISSAEL Administration Gabapentin 800 mg 10/28/16 10:00 10/28/16 09:59 Neurontin - PO 800 mg TID MISSAEL Administration Heparin Sodium (Porcine) 5,000 unit 10/28/16 10:00 10/28/16 10:00 Heparin - SQ 5,000 unit TID MISSAEL Administration Vancomycin HCl 1,250 mg/ 250 mls @ 166.667 mls/hr 10/28/16 16:00 10/27/16 18:14 Dextrose IVPB 166.667 mls/hr DAILY@1600 MISSAEL Administration Protocol Insulin Aspart 1 vial 10/27/16 22:00 10/28/16 11:07 Novolog Vial Sliding Scale - SQ 4 units ACHS MISSAEL Administration Protocol Losartan Potassium 25 mg 10/28/16 10:00 10/28/16 10:00 Cozaar - PO 25 mg DAILY MISSAEL Administration Metoprolol Succinate 25 mg 10/28/16 10:00 10/28/16 09:59 Toprol Xl - PO 25 mg DAILY MISSAEL Administration Oxycodone HCl 5 mg 10/28/16 08:03 10/28/16 11:02 Roxicodone - PO 5 mg Q4H PRN Administration PAIN Pantoprazole Sodium 20 mg 10/27/16 22:00 10/28/16 10:00 Protonix - PO 20 mg BID MISSAEL Administration Pramipexole Dihydrochloride 0.5 mg 10/27/16 22:00 10/27/16 21:51 Mirapex - PO 0.5 mg HS MISSAEL Administration Fluticasone/Salmeterol 1 puff 10/27/16 22:00 10/28/16 10:04 Advair 100mcg/50mcg - IH 1 inh BID MISSAEL Administration Solifenacin 5 mg 10/28/16 10:00 10/28/16 10:00 Vesicare - PO 5 mg DAILY MISSAEL Administration Tamsulosin HCl 0.4 mg 10/28/16 08:30 10/28/16 09:58 Flomax - PO 0.4 mg DAILY@0830 MISSAEL Administration ASSESSMENT/PLAN: Patient is a 65 year old male with a past medical history of COPD-oxygen depending, asthma, SAMMY, DM, GI bleed, CAD, CVA (left sided weakness), HTN, HLD, and gout. He was admitted with fever and reopened foot wound, and admitted with sepsis. ID: Severe sepsis secondary to MRSA bacteremia and osteomyelitis on diabetic foot/ ulcers - resolved Assessment/Plan: On Vancomycin daily ID following As per ID pt will need to continue to treat with Vancomycin for a total of 4 weeks will need PICC line Diabetic foot ulcer - chronic Assessment/Plan: s/p surgical debridement s/p Excisional debridement of right foot wound with resection of 2nd, 3rd and 4th metatarsal heads. On Vancomycin daily : Acute Kidney Injury on CKD -improved Assessment/Plan: Lasix as per renal Renal function stable and at baseline Monitor renal function Renal following Endocrine: Diabetes - chronic Assessment/Plan: sliding scale BGMs. Cardiology: HTN/CAD - chronic Assessment/Plan: On Losartan, Metoprolol 25mg daily, Plavix/ASA Pulmonary: COPD exacerbation - not in acute exacerbation Assessment/Plan: monitor Supplemental o2 for spo2 >92% Visit type - Emergency Visit Emergency Visit: Yes ED Registration Date: 10/22/16 Care time: The patient presented to the Emergency Department on the above date and was hospitalized for further evaluation of their emergent condition. - New Patient This patient is new to me today: Yes Date on this admission: 10/28/16 - Critical Care Critical Care patient: No - Discharge Referral Referred to [facility] Med P.C.: No
--- NOTE | 2016-10-28 12:48 | PN ---
Progress Note, Physician Chief Complaint: ID Day 1 excisional debridement and removal 3 metatarsals foot Vancomycin 1.25gr standing order Afebrile NAD - Current Medication List Current Medications: Active Medications Aclidinium [place] (Tudorza -) 1 puff IH BID [facility] Last Admin: 10/28/16 10:04 Dose: 1 inh Albuterol/Ipratropium (Duoneb -) 1 amp NEB Q4H PRN PRN Reason: SHORTNESS OF BREATH Last Admin: 10/28/16 09:20 Dose: 1 amp Amlodipine Besylate (Norvasc -) 5 mg PO DAILY [facility] Last Admin: 10/28/16 09:59 Dose: 5 mg Atorvastatin Calcium (Lipitor -) 20 mg PO HS [facility] Last Admin: 10/27/16 21:51 Dose: 20 mg Clopidogrel Bisulfate (Plavix -) 75 mg PO DAILY [facility] Last Admin: 10/28/16 10:00 Dose: 75 mg Docusate Sodium (Colace -) 100 mg PO TID [facility] Last Admin: 10/28/16 06:41 Dose: Not Given Ferrous Sulfate (Feosol -) 325 mg PO TIDCM [facility] Last Admin: 10/28/16 12:27 Dose: Not Given Gabapentin (Neurontin -) 800 mg PO TID [facility] Last Admin: 10/28/16 09:59 Dose: 800 mg Heparin Sodium (Porcine) (Heparin -) 5,000 unit SQ TID [facility] Last Admin: 10/28/16 10:00 Dose: 5,000 unit Vancomycin HCl 1,250 mg/ (Dextrose) 250 mls @ 166.667 mls/hr IVPB DAILY@1600 MISSAEL PRN Reason: Protocol Last Admin: 10/27/16 18:14 Dose: 166.667 mls/hr Insulin Aspart (Novolog Vial Sliding Scale -) 1 vial SQ ACHS [facility] PRN Reason: Protocol Last Admin: 10/28/16 11:07 Dose: 4 units Losartan Potassium (Cozaar -) 25 mg PO DAILY [facility] Last Admin: 10/28/16 10:00 Dose: 25 mg Metoprolol Succinate (Toprol Xl -) 25 mg PO DAILY [facility] Last Admin: 10/28/16 09:59 Dose: 25 mg Oxycodone HCl (Roxicodone -) 5 mg PO Q4H PRN PRN Reason: PAIN Last Admin: 10/28/16 11:02 Dose: 5 mg Pantoprazole Sodium (Protonix -) 20 mg PO BID [facility] Last Admin: 10/28/16 10:00 Dose: 20 mg Pramipexole Dihydrochloride (Mirapex -) 0.5 mg PO HS [facility] Last Admin: 10/27/16 21:51 Dose: 0.5 mg Fluticasone/Salmeterol (Advair 100mcg/50mcg -) 1 puff IH BID [facility] Last Admin: 10/28/16 10:04 Dose: 1 inh Solifenacin (Vesicare -) 5 mg PO DAILY [facility] Last Admin: 10/28/16 10:00 Dose: 5 mg Tamsulosin HCl (Flomax -) 0.4 mg PO DAILY@0830 [facility] Last Admin: 10/28/16 09:58 Dose: 0.4 mg - Objective Vital Signs: Vital Signs Temperature 99.1 F 10/28/16 06:24 Pulse Rate 84 10/28/16 06:24 Respiratory Rate 20 10/28/16 06:24 Blood Pressure 124/60 10/28/16 06:24 O2 Sat by Pulse Oximetry (%) 94 L 10/27/16 21:00 Extremities: Yes: Other (Post op dressing) Labs: CBC, BMP 10/28/16 06:30 10/28/16 06:30 INR, PTT INR 1.31 (0.82-1.09) H 10/22/16 16:25 Problem List - Problems (1) Diabetic foot infection Code(s): E11.69 - TYPE 2 DIABETES MELLITUS WITH OTHER SPECIFIED COMPLICATION L08.9 - LOCAL INFECTION OF THE SKIN AND SUBCUTANEOUS TISSUE, UNSP (2) Severe sepsis Code(s): A41.9 - SEPSIS, UNSPECIFIED ORGANISM (3) Multiple drug resistant organism (MDRO) culture positive Code(s): Z16.24 - RESISTANCE TO MULTIPLE ANTIBIOTICS (4) Bacteremia due to Gram-positive bacteria Code(s): A49.9 - BACTERIAL INFECTION, UNSPECIFIED Assessment/Plan Microbiology 10/22/16 16:30 Foot - Right Plantar Gram Stain - Final 10/22/16 16:30 Foot - Right Plantar Wound Culture - Final Mr S Aureus Enterococcus Faecalis 10/22/16 16:25 Blood - Peripheral Venous Blood Culture - Final Mr S Aureus 10/22/16 16:25 Blood - Peripheral Venous Blood Culture - Final Mr S Aureus 10/25/16 05:35 Blood - Peripheral Venous Blood Culture - Preliminary NO GROWTH OBTAINED AFTER 72 HOURS, INCUBATION TO CONTINUE FOR 2 DAYS. 10/25/16 05:35 Blood - Peripheral Venous Blood Culture - Preliminary NO GROWTH OBTAINED AFTER 72 HOURS, INCUBATION TO CONTINUE FOR 2 DAYS. Laboratory Tests 10/24/16 10/26/16 10/28/16 06:00 06:55 06:30 WBC 9.0 Hgb 8.2 L Hct 27.1 L Plt Count 219 ESR 70 H Random Vancomycin 9.598 Assessment MRSA bacteremia with osteomyelitis Plan Continue to treat Vanco total 4 weeks PICC line Discharge planning Emmanuel BANEGAS
--- NOTE | 2016-10-28 16:42 | PN ---
Progress Note, Physician Chief Complaint: Not in distress History of Present Illness: Patient was seen and examined. Awake and alert. Chart was reviewed Denies chest pain, SOB or palpitation - Current Medication List Current Medications: Active Medications Aclidinium [place] (Tudorza -) 1 puff IH BID [facility] Last Admin: 10/28/16 10:04 Dose: 1 inh Albuterol/Ipratropium (Duoneb -) 1 amp NEB Q4H PRN PRN Reason: SHORTNESS OF BREATH Last Admin: 10/28/16 09:20 Dose: 1 amp Amlodipine Besylate (Norvasc -) 5 mg PO DAILY [facility] Last Admin: 10/28/16 09:59 Dose: 5 mg Atorvastatin Calcium (Lipitor -) 20 mg PO HS [facility] Last Admin: 10/27/16 21:51 Dose: 20 mg Clopidogrel Bisulfate (Plavix -) 75 mg PO DAILY [facility] Last Admin: 10/28/16 10:00 Dose: 75 mg Docusate Sodium (Colace -) 100 mg PO TID [facility] Last Admin: 10/28/16 14:35 Dose: 100 mg Ferrous Sulfate (Feosol -) 325 mg PO TIDCM [facility] Last Admin: 10/28/16 12:27 Dose: Not Given Gabapentin (Neurontin -) 800 mg PO TID [facility] Last Admin: 10/28/16 14:35 Dose: 800 mg Heparin Sodium (Porcine) (Heparin -) 5,000 unit SQ TID [facility] Last Admin: 10/28/16 14:35 Dose: 5,000 unit Vancomycin HCl 1,250 mg/ (Dextrose) 250 mls @ 166.667 mls/hr IVPB DAILY@1600 MISSAEL PRN Reason: Protocol Last Admin: 10/27/16 18:14 Dose: 166.667 mls/hr Insulin Aspart (Novolog Vial Sliding Scale -) 1 vial SQ ACHS [facility] PRN Reason: Protocol Last Admin: 10/28/16 11:07 Dose: 4 units Losartan Potassium (Cozaar -) 25 mg PO DAILY [facility] Last Admin: 10/28/16 10:00 Dose: 25 mg Metoprolol Succinate (Toprol Xl -) 25 mg PO DAILY [facility] Last Admin: 10/28/16 09:59 Dose: 25 mg Oxycodone HCl (Roxicodone -) 5 mg PO Q4H PRN PRN Reason: PAIN Last Admin: 10/28/16 11:02 Dose: 5 mg Pantoprazole Sodium (Protonix -) 20 mg PO BID [facility] Last Admin: 10/28/16 10:00 Dose: 20 mg Pramipexole Dihydrochloride (Mirapex -) 0.5 mg PO HS [facility] Last Admin: 10/27/16 21:51 Dose: 0.5 mg Fluticasone/Salmeterol (Advair 100mcg/50mcg -) 1 puff IH BID [facility] Last Admin: 10/28/16 10:04 Dose: 1 inh Solifenacin (Vesicare -) 5 mg PO DAILY [facility] Last Admin: 10/28/16 10:00 Dose: 5 mg Tamsulosin HCl (Flomax -) 0.4 mg PO DAILY@0830 [facility] Last Admin: 10/28/16 09:58 Dose: 0.4 mg - Objective Vital Signs: Vital Signs Temperature 98.7 F 10/28/16 15:50 Pulse Rate 74 10/28/16 15:50 Respiratory Rate 18 10/28/16 15:50 Blood Pressure 101/61 10/28/16 15:50 O2 Sat by Pulse Oximetry (%) 95 10/28/16 09:00 Neck: Yes: Supple Cardiovascular: Yes: Regular Rate and Rhythm, S1, S2 Respiratory: Yes: Diminished Gastrointestinal: Yes: Normal Bowel Sounds, Soft. No: Tenderness Edema: No Wound/Incision: Yes: Dressing Dry and Intact Labs: CBC, BMP 10/28/16 06:30 10/28/16 06:30 Problem List - Problems (1) Diabetic infection of right foot Code(s): E11.69 - TYPE 2 DIABETES MELLITUS WITH OTHER SPECIFIED COMPLICATION L08.9 - LOCAL INFECTION OF THE SKIN AND SUBCUTANEOUS TISSUE, UNSP (2) Coronary artery disease Code(s): I25.10 - ATHSCL HEART DISEASE OF [place] CORONARY ARTERY W/O ANG PCTRS Qualifiers: Coronary Disease-Associated Artery/Lesion type: [place] artery [place] vs. transplanted heart: [place] heart Associated angina: without angina Qualified Code(s): I25.10 - Atherosclerotic heart disease of [place] coronary artery without angina pectoris (3) CKD (chronic kidney disease) Code(s): N18.9 - CHRONIC KIDNEY DISEASE, UNSPECIFIED Qualifiers: Chronic kidney disease stage: stage 3 (moderate) Qualified Code(s): N18.3 - Chronic kidney disease, stage 3 (moderate) (4) Peripheral artery disease Code(s): I73.9 - PERIPHERAL VASCULAR DISEASE, UNSPECIFIED (5) Wound, open, foot Code(s): S91.309A - UNSPECIFIED OPEN WOUND, UNSPECIFIED FOOT, INITIAL ENCOUNTER Qualifiers: Encounter type: subsequent encounter Laterality: right Qualified Code(s): S91.301D - Unspecified open wound, right foot, subsequent encounter (6) Anemia Code(s): D64.9 - ANEMIA, UNSPECIFIED Qualifiers: Anemia type: unspecified type Qualified Code(s): D64.9 - Anemia, unspecified (7) COPD (chronic obstructive pulmonary disease) Code(s): J44.9 - CHRONIC OBSTRUCTIVE PULMONARY DISEASE, UNSPECIFIED Qualifiers : COPD type: COPD with acute lower respiratory infection Qualified Code(s): J44.0 - Chronic obstructive pulmonary disease with acute lower respiratory infection (8) Diabetes mellitus Code(s): E11.9 - TYPE 2 DIABETES MELLITUS WITHOUT COMPLICATIONS Qualifiers: Diabetes mellitus type: type 2 Diabetes mellitus complication status: with skin complications Diabetes mellitus complication detail: with dermatitis Diabetes mellitus medical terminologist insulin use: unspecified prison insulin use status Qualified Code(s): E11.620 - Type 2 diabetes mellitus with diabetic dermatitis; Z79.4 - medical terminologist (current) use of insulin (9) Hyperlipidemia Code(s): E78.5 - HYPERLIPIDEMIA, UNSPECIFIED Qualifiers: Hyperlipidemia type: pure hypercholesterolemia Qualified Code(s): E78.00 - Pure hypercholesterolemia, unspecified; E78.0 - Pure hypercholesterolemia (10) Hypertension Code(s): I10 - ESSENTIAL (PRIMARY) HYPERTENSION Qualifiers: Hypertension type: essential hypertension Qualified Code(s): I10 - Essential (primary) hypertension (11) Preoperative cardiovascular examination Code(s): Z01.810 - ENCOUNTER FOR PREPROCEDURAL CARDIOVASCULAR EXAMINATION Assessment/Plan 1. Right foot ulcer for debridement 2. HTN/HCVD 3. PAD 4. Type 2 diabetes mellitus PLAN: 1. Continue Toprol XL and Amlodipine 2. Continue Lipitor 3. Continue Plavix 4. Post op Care Further plans are to follow Branden Maddox MD
[2016-10-28] MEDS: VANCOMYCIN 1,250 MG in DEXTROSE 5%-WATER - 250 ML IVPB SCH (18:14)
[2016-10-28] MEDS: ATORVASTATIN CA 20 MG TABLET (FP) PO SCH (21:47)
[2016-10-28] MEDS: PRAMIPEXOLE DIHYDROCHLORIDE 0.5 MG TABLET PO SCH (21:47)
[2016-10-29] MEDS ORDERED: PT OWN MED DRAWER 7, Y5N ONE ×2 (06:13→14:46)
[2016-10-29] MEDS: HEPARIN NA (PORCINE) 5,000 UNITS/ML 1ML VIAL SQ SCH ×2 (06:29→14:43)
[2016-10-29] MEDS: GABAPENTIN 400 MG CAPSULE (FP) PO SCH ×2 (06:30→14:47)
[2016-10-29] MEDS: DOCUSATE SODIUM 100 MG CAPSULE (FP) PO SCH ×2 (06:30→14:43)
[2016-10-29] MEDS: INSULIN SLIDING SCALE (NOVOLOG) 1 VIAL SQ SCH ×3 (06:30→17:23)
[2016-10-29 08:36] LABS: BASOPHIL 0.8 % (0-2.0); MCH 20.6 pg (25.7-33.7); MCHC 30.5 g/dl (32.0-35.9); MEAN CELL VOLUME 67.7 fl (80-96); MEAN PLT VOLUME 9.2 fl (7.5-11.1); NEUTROPHILS 70.4 % (42.8-82.8); PLATELET COUNT 219 K/MM3 (134-434); RDW 20.4 % (11.9-15.9); WHITE BLOOD COUNT 9.1 K/mm3 (4.0-10.0)
--- NOTE | 2016-10-29 08:57 | PN ---
Progress Note, Physician Chief Complaint: ID Appears comfortable NAD Vancomycin - Current Medication List Current Medications: Active Medications Aclidinium [place] (Tudorza -) 1 puff IH BID [facility] Last Admin: 10/28/16 21:48 Dose: 1 inh Albuterol/Ipratropium (Duoneb -) 1 amp NEB Q4H PRN PRN Reason: SHORTNESS OF BREATH Last Admin: 10/28/16 09:20 Dose: 1 amp Amlodipine Besylate (Norvasc -) 5 mg PO DAILY [facility] Last Admin: 10/28/16 09:59 Dose: 5 mg Atorvastatin Calcium (Lipitor -) 20 mg PO HS [facility] Last Admin: 10/28/16 21:47 Dose: 20 mg Clopidogrel Bisulfate (Plavix -) 75 mg PO DAILY [facility] Last Admin: 10/28/16 10:00 Dose: 75 mg Docusate Sodium (Colace -) 100 mg PO TID [facility] Last Admin: 10/29/16 06:30 Dose: 100 mg Ferrous Sulfate (Feosol -) 325 mg PO TIDCM [facility] Last Admin: 10/28/16 18:16 Dose: 325 mg Gabapentin (Neurontin -) 800 mg PO TID [facility] Last Admin: 10/29/16 06:30 Dose: 800 mg Heparin Sodium (Porcine) (Heparin -) 5,000 unit SQ TID [facility] Last Admin: 10/29/16 06:29 Dose: 5,000 unit Vancomycin HCl 1,250 mg/ (Dextrose) 250 mls @ 166.667 mls/hr IVPB DAILY@1600 MISSAEL PRN Reason: Protocol Last Admin: 10/28/16 18:14 Dose: 166.667 mls/hr Insulin Aspart (Novolog Vial Sliding Scale -) 1 vial SQ ACHS [facility] PRN Reason: Protocol Last Admin: 10/29/16 06:30 Dose: Not Given Losartan Potassium (Cozaar -) 25 mg PO DAILY [facility] Last Admin: 10/28/16 10:00 Dose: 25 mg Metoprolol Succinate (Toprol Xl -) 25 mg PO DAILY [facility] Last Admin: 10/28/16 09:59 Dose: 25 mg Oxycodone HCl (Roxicodone -) 5 mg PO Q4H PRN PRN Reason: PAIN Last Admin: 10/28/16 11:02 Dose: 5 mg Pantoprazole Sodium (Protonix -) 20 mg PO BID [facility] Last Admin: 10/28/16 21:48 Dose: 20 mg Pramipexole Dihydrochloride (Mirapex -) 0.5 mg PO HS [facility] Last Admin: 10/28/16 21:47 Dose: 0.5 mg Fluticasone/Salmeterol (Advair 100mcg/50mcg -) 1 puff IH BID [facility] Last Admin: 10/28/16 21:48 Dose: 1 inh Solifenacin (Vesicare -) 5 mg PO DAILY [facility] Last Admin: 10/28/16 10:00 Dose: 5 mg Tamsulosin HCl (Flomax -) 0.4 mg PO DAILY@0830 [facility] Last Admin: 10/28/16 09:58 Dose: 0.4 mg - Objective Vital Signs: Vital Signs Temperature 99.2 F 10/29/16 06:00 Pulse Rate 84 10/29/16 06:00 Respiratory Rate 20 10/29/16 06:00 Blood Pressure 139/79 10/29/16 06:00 O2 Sat by Pulse Oximetry (%) 95 10/28/16 21:00 Extremities: Yes: Other (Post op dressing metatarsal amputations) Labs: CBC, BMP 10/29/16 06:05 INR, PTT INR 1.31 (0.82-1.09) H 10/22/16 16:25 Problem List - Problems (1) Diabetic foot infection Code(s): E11.69 - TYPE 2 DIABETES MELLITUS WITH OTHER SPECIFIED COMPLICATION L08.9 - LOCAL INFECTION OF THE SKIN AND SUBCUTANEOUS TISSUE, UNSP (2) Severe sepsis Code(s): A41.9 - SEPSIS, UNSPECIFIED ORGANISM (3) Multiple drug resistant organism (MDRO) culture positive Code(s): Z16.24 - RESISTANCE TO MULTIPLE ANTIBIOTICS (4) Bacteremia due to Gram-positive bacteria Code(s): A49.9 - BACTERIAL INFECTION, UNSPECIFIED Assessment/Plan Laboratory Tests 10/29/16 10/29/16 06:05 06:05 WBC 9.1 Hgb 7.9 L Hct 25.8 L Plt Count 219 BUN Pending Creatinine Pending Assessment Diabetic foot infection post resections MRSA in the blood Plan Compete 4 weeks Vancomycin PICC Check Vanco levels keep 15ug- or so Emmanuel BANEGAS
[2016-10-29] MEDS: FERROUS SO4 325 MG TABLET (FP) PO SCH ×3 (08:58→17:50)
[2016-10-29] MEDS: TAMSULOSIN HCL 0.4 MG CAP.ER.24H (FP) PO SCH (08:58)
[2016-10-29 09:13] LABS: CALCIUM 8.1 mg/dL (8.5-10.1); CREATININE 1.5 mg/dL (0.7-1.3); PHOSPHOROUS 3.4 mg/dL (2.5-4.9)
[2016-10-29] MEDS: SOLIFENACIN SUCCINATE 5 MG TAB (FP) PO SCH (10:13)
[2016-10-29] MEDS: PANTOPRAZOLE 20 MG TABLET (FP) PO SCH (10:14)
[2016-10-29] MEDS: amLODIPine BESYLATE 5 MG TABLET (FP) PO SCH (10:14)
[2016-10-29] MEDS: CLOPIDOGREL BISULFATE 75 MG TABLET (FP) PO SCH (10:14)
[2016-10-29] MEDS: METOPROLOL SUCCINATE 25 MG TAB.SR.24H (FP) PO SCH (10:14)
[2016-10-29] MEDS: LOSARTAN POTASSIUM 25 MG TABLET PO SCH (10:14)
[2016-10-29] MEDS: FLUTICASONE/SALMETEROL 100 MCG/50 MCG DISKUS IH SCH (10:21)
[2016-10-29] MEDS: ACLIDINIUM BROMIDE 400 MCG/INH AERO.POWD IH SCH (10:21)
--- NOTE | 2016-10-29 10:32 | PN ---
Progress Note (short form) - Note Progress Note: POD#2 Pt oob to chair this am and dressing changed. Vital Signs Period Temp Pulse Resp BP Sys/Cintron Pulse Ox Last 24 Hr 98.6 F-99.2 F 74-84 18-22 101-139/61-79 95 PE: GEN: A&0 x3, NAD Right foot: dressing changed, mild bleeding, no purulent drainage. The wound was irrigated with NS and repacked with iodoform, dry dressing and kerlix. CBC, BMP 10/29/16 06:05 10/29/16 06:05 A/P: 66 yo male with s/p Excisional debridment of right foot wound with resection of 2nd, 3rd and 4th metatarsal heads. Dressing changed today with iododorm packing Ordered placed for PICC line by the medical service
--- NOTE | 2016-10-29 11:26 | PATH ---
Surgical Pathology Report Patient Name: KAREN CAMARGO Med. Rec. #: [id number] /Age/Gender: 1950 (Age: 66) / M Account: [id number] Location: [facility] MED/SURG Taken: 10/27/2016 Received: 10/28/2016 Reported: 10/29/2016 Physicians: Sander Davis M.D. Specimen(s) Received DEBRIDEMENT SKIN & BONE METATARSAL HEAD RESECTION Clinical History Diabetic foot infection, sepsis, osteomyelitis Final Diagnosis RIGHT FOOT, DEBRIDEMENT: BONE ACUTE OSTEOMYELITIS AND MARKED REACTIVE CHANGES. SKIN SOFT TISSUE WITH GANGRENOUS NECROSIS. Electronically Signed Chris Gregg M.D. Gross Description Received in formalin labeled "debrided tissue and bone right foot," is a 4.8 x 4.0 x 2.3 cm aggregate of focally ulcerated, rod ramos skin, soft tissue and bone fragments. Centrifuge Operator sections are submitted in one cassette, following decalcification. /10/28/2016 saudi/10/28/2016
[2016-10-29 12:00] LABS: HYPOCHROMIA 3+; POLYCHROMASIA 1+
[2016-10-29 12:01] LABS: ANISOCYTOSIS 3+; MICROCYTOSIS 2+; OVALOCYTES FEW; TARGET CELLS 3+
--- NOTE | 2016-10-29 15:38 | PN ---
Progress Note (short form) - Note Progress Note: Renal follow up for JESÚS on CKD Pt seen and examined at the bedside no acute complaints Vital Signs Temperature 98.6 F 10/29/16 08:40 Pulse Rate 81 10/29/16 08:40 Respiratory Rate 20 10/29/16 08:40 Blood Pressure 106/63 10/29/16 08:40 O2 Sat by Pulse Oximetry (%) 96 10/29/16 09:00 Intake & Output 10/26/16 10/27/16 10/28/16 10/29/16 23:59 23:59 23:59 23:59 Intake Total 532 1750 1690 300 Output Total 1750 1100 900 500 Balance -1218 650 790 -200 Gen: NAD, awake and alert CVS: RRR, NO M/R Lungs: CTA, No R/W Abd: Soft NT/ND Ext: No edema, clubbing or cyanosis CBC, BMP 10/29/16 06:05 10/29/16 06:05 Current Medications Aclidinium [place] (Tudorza -) 1 puff IH BID [facility] Last Admin: 10/29/16 10:21 Dose: 1 inh Albuterol/Ipratropium (Duoneb -) 1 amp NEB Q4H PRN PRN Reason: SHORTNESS OF BREATH Last Admin: 10/28/16 09:20 Dose: 1 amp Amlodipine Besylate (Norvasc -) 5 mg PO DAILY [facility] Last Admin: 10/29/16 10:14 Dose: 5 mg Atorvastatin Calcium (Lipitor -) 20 mg PO HS [facility] Last Admin: 10/28/16 21:47 Dose: 20 mg Clopidogrel Bisulfate (Plavix -) 75 mg PO DAILY [facility] Last Admin: 10/29/16 10:14 Dose: 75 mg Docusate Sodium (Colace -) 100 mg PO TID [facility] Last Admin: 10/29/16 14:43 Dose: 100 mg Ferrous Sulfate (Feosol -) 325 mg PO TIDCM [facility] Last Admin: 10/29/16 14:43 Dose: 325 mg Gabapentin (Neurontin -) 800 mg PO TID [facility] Last Admin: 10/29/16 14:47 Dose: 800 mg Heparin Sodium (Porcine) (Heparin -) 5,000 unit SQ TID [facility] Last Admin: 10/29/16 14:43 Dose: 5,000 unit Vancomycin HCl 1,250 mg/ (Dextrose) 250 mls @ 166.667 mls/hr IVPB DAILY@1600 [facility] PRN Reason: Protocol Last Admin: 10/28/16 18:14 Dose: 166.667 mls/hr Insulin Aspart (Novolog Vial Sliding Scale -) 1 vial SQ ACHS [facility] PRN Reason: Protocol Last Admin: 10/29/16 13:20 Dose: 4 units Losartan Potassium (Cozaar -) 25 mg PO DAILY [facility] Last Admin: 10/29/16 10:14 Dose: 25 mg Metoprolol Succinate (Toprol Xl -) 25 mg PO DAILY [facility] Last Admin: 10/29/16 10:14 Dose: 25 mg Oxycodone HCl (Roxicodone -) 5 mg PO Q4H PRN PRN Reason: PAIN Last Admin: 10/28/16 11:02 Dose: 5 mg Pantoprazole Sodium (Protonix -) 20 mg PO BID [facility] Last Admin: 10/29/16 10:14 Dose: 20 mg Pramipexole Dihydrochloride (Mirapex -) 0.5 mg PO HS [facility] Last Admin: 10/28/16 21:47 Dose: 0.5 mg Fluticasone/Salmeterol (Advair 100mcg/50mcg -) 1 puff IH BID [facility] Last Admin: 10/29/16 10:21 Dose: 1 inh Solifenacin (Vesicare -) 5 mg PO DAILY [facility] Last Admin: 10/29/16 10:13 Dose: 5 mg Tamsulosin HCl (Flomax -) 0.4 mg PO DAILY@0830 [facility] Last Admin: 10/29/16 08:58 Dose: 0.4 mg A/P 66 year old Gentleman with PMhx of CKD Stage 3 (baseline Cr of 1.4-1.7), Hypertension, CAD, COPD on Home O2, DM, Asthma, CVA, HLD, gout who presented with LE lesion/ulceration with elevated BUN/Cr that worsened initially during hospitalization. #JESÚS on CKD Renal function stable at baseline Continue Lasix and Lsoartan continue to trend BUN/Cr while inpatient #LE Wound/MRSA Bactermia s/p Excisional debridment of right foot wound with resection of 2nd, 3rd and 4th metatarsal heads. To continue on IV Vanco by picc line as per ID continue Vanco dosed by levels #Acute on chronic anemia iron studies show iron deficiency oral iron for now as pt with recent bacteremia transfuse as needed Deven Layton DO
[2016-10-29 15:43] VITALS: BP 96/57; PULSE 73; TEMP 97.9
--- NOTE | 2016-10-29 16:27 | DS ---
Physical Exam: SUBJECTIVE: Patient seen and examined. Denies chest pain or shortness of breath. OBJECTIVE: Vital Signs Period Temp Pulse Resp BP Sys/Cintron Pulse Ox Last 24 Hr 97.9 F-99.2 F 73-84 20-22 96-139/57-79 95-96 PHYSICAL EXAM GENERAL: The patient is awake, alert, and fully oriented, in no acute distress. HEAD: Normal with no signs of trauma. EYES: PERRL, extraocular movements intact, sclera anicteric, conjunctiva clear. No ptosis. ENT: Ears normal, nares patent, oropharynx clear without exudates, moist mucous membranes. NECK: Trachea midline, full range of motion, supple. LUNGS: Breath sounds diminished bilaterally HEART: Regular rate and rhythm ABDOMEN: Soft, nontender, nondistended, normoactive bowel sounds, no guarding, no rebound, no hepatosplenomegaly, no masses. NEUROLOGICAL: Normal speech, gait not observed. PSYCH: Normal mood, normal affect. LABS Laboratory Results - last 24 hr 10/28/16 10/28/16 10/29/16 17:46 21:46 06:05 WBC 9.1 RBC 3.80 L Hgb 7.9 L Hct 25.8 L MCV 67.7 L MCHC 30.5 L RDW 20.4 H Plt Count 219 MPV 9.2 Neutrophils % 70.4 Lymphocytes % 15.8 Monocytes % 9.0 Eosinophils % 4.0 Basophils % 0.8 Polychromasia 1+ Hypochromic-Microcytic 3+ Anisocytosis 3+ Microcytosis 2+ Macrocytosis Few Target Cells 3+ Ovalocytes Few Sodium Potassium Chloride Carbon Dioxide Anion Gap BUN Creatinine POC Glucometer 186 204 Random Glucose Calcium Phosphorus Magnesium 10/29/16 10/29/16 10/29/16 06:05 06:28 13:11 WBC RBC Hgb Hct MCV MCHC RDW Plt Count MPV Neutrophils % Lymphocytes % Monocytes % Eosinophils % Basophils % Polychromasia Hypochromic-Microcytic Anisocytosis Microcytosis Macrocytosis Target Cells Ovalocytes Sodium 138 Potassium 4.6 Chloride 102 Carbon Dioxide 27 Anion Gap 9 BUN 17 D Creatinine 1.5 H POC Glucometer 147 223 Random Glucose 123 H Calcium 8.1 L Phosphorus 3.4 D Magnesium 2.0 HOSPITAL COURSE: Date of Admission:10/22/16 Date of Discharge: 03/31/17 Patient is a 65 year old male with a past medical history of COPD-oxygen depending, asthma, SAMMY, DM, GI bleed, CAD, CVA (left sided weakness), HTN, HLD, and gout. He was admitted with fever and reopened foot wound, and admitted with sepsis. ID: Severe sepsis secondary to MRSA bacteremia and osteomyelitis on diabetic foot/ ulcers - resolved Assessment/Plan: On Vancomycin daily - to continue Vancomycin for a total of 4 weeks at rehab via PICC Wound care as per surgery noted on discharge instructions Diabetic foot ulcer - chronic Assessment/Plan: s/p surgical debridement s/p Excisional debridement of right foot wound with resection of 2nd, 3rd and 4th metatarsal heads. : Acute Kidney Injury on CKD -improved Assessment/Plan: Lasix as per renal Renal function stable and at baseline Monitor renal function Renal following Endocrine: Diabetes - chronic Assessment/Plan: sliding scale BGMs. Cardiology: HTN/CAD - chronic Assessment/Plan: On Losartan, Metoprolol 25mg daily, Plavix/ASA Pulmonary: COPD exacerbation - not in acute exacerbation Assessment/Plan: monitor Supplemental o2 for spo2 >92% Disposition: d/c today to short term rehab. full code. Minutes to complete discharge: 60 Discharge Summary Reason For Visit: DIABETIC FOOT INFECTION / SEPSIS Current Active Problems Bacteremia due to Gram-positive bacteria (Acute) Diabetic foot infection (Acute) Diabetic infection of right foot (Acute) Multiple drug resistant organism (MDRO) culture positive (Acute) Preoperative cardiovascular examination (Acute) Renal insufficiency (Acute) Severe sepsis (Acute) Coronary artery disease (Chronic) Sleep apnea (Chronic) Tobacco use disorder (Chronic) dry skin/stasis changes (Chronic) Condition: Guarded - Instructions Diet, Activity, Other Instructions: continue sliding scale insulin coverage. Daily wound care with sterile dressing. See physician order instructions, irrigate right foot wound with 1/2 peroxide strength daily and repack with iodoform. Follow-up with Dr. Sanders Vancomycin 1,250mg daily thru PICC line for more more weeks Check Vanco levels keep 15ug- or so Referrals: Shiv Domínguez MD [Staff Physician] - Johnny Giron MD, MD [Primary Care Provider] - Jay Sanders MD [Staff Physician] - Disposition: ALF FACILITY - Home Medications Comprehensive Discharge Medication List: Ambulatory Orders Allopurinol 300 mg PO DAILY 05/11/16 Amlodipine Besylate [Norvasc -] 5 mg PO DAILY 05/11/16 Atorvastatin Ca [Lipitor] 20 mg PO DAILY 05/11/16 Clopidogrel Bisulfate [Plavix -] 75 mg PO DAILY 05/11/16 Gabapentin [Neurontin] 800 mg PO TID 05/11/16 Linagliptin [Tradjenta] 5 mg PO DAILY 05/11/16 Mupirocin Ointment [Bactroban 2% Ointment -] 1 applic TP BID 05/11/16 Nystatin Powder [Nystop Powder -] 60 gm TP DAILY 05/11/16 Omeprazole 20 mg PO BID 05/11/16 Peg 400/Hypromellose/Glycerin [Artificial Tears Drops] 1 drop OU DAILY 05/11/16 Pramipexole Dihydrochloride [Mirapex -] 0.5 mg PO HS 05/11/16 Solifenacin Succinate [Vesicare -] 5 mg PO DAILY 05/11/16 Tamsulosin HCl [Flomax -] 0.4 mg PO DAILY 05/11/16 Trazodone HCl [Desyrel -] 50 mg PO HS 05/11/16 Docusate Sodium [Colace -] 100 mg PO TID capsule 07/19/16 Erythromycin 0.5% Eye Ointment [Erythromycin 0.5% Eye Ointment -] 1 applic OD TID tube 07/19/16 Losartan Potassium [Cozaar -] 25 mg PO DAILY tablet 07/19/16 Metoprolol Succinate [Toprol XL -] 25 mg PO DAILY tab.sr.24h 07/19/16 Neomycin/Polymyx/Hc Ophth Susp [Cortisporin *Ophthalmic Suspension* -] 1 drop OD Q4HWA drops 07/19/16 Nicotine Polacrilex [Nicorelief -] 2 mg BUC Q2H PRN #0 gum 07/19/16 Oxycodone HCl [Roxicodone -] 5 mg PO Q8H PRN #30 tablet MDD 3 07/19/16 Picc Line Flush [Picc Line Flush -] 8 ml IVPUSH PRN PRN #0 ml 07/20/16 Memantine HCl [Namenda Xr] 7 mg PO DAILY 07/22/16 Cefepime [Maxipime (Restricted To Id) -] 2 gm IVPB DAILY #0 vial 07/23/16 Metronidazole [Flagyl -] 500 mg PO TID tablet 07/23/16 Aclidinium [place] [Tudorza -] 1 puff IH BID inhaler 10/29/16 Albuterol 2.5/Ipratropium 0.5 [Duoneb -] 1 amp NEB Q4H PRN #0 amp 10/29/16 Amlodipine Besylate [Norvasc -] 5 mg PO DAILY tablet 10/29/16 Clopidogrel Bisulfate [Plavix -] 75 mg PO DAILY tablet 10/29/16 Furosemide [Lasix] 40 mg PO DAILY #30 tablet 10/29/16 Heparin - 5,000 unit SQ TID vial 10/29/16 Insulin Sliding Scale [Novolog Vial Sliding Scale -] 1 vial SQ ACHS units 10/29 Pramipexole Dihydrochloride [Mirapex -] 0.5 mg PO HS tablet 10/29/16 Salmeterol/Fluticasone [Advair 100Mcg/50Mcg -] 1 puff IH BID inhaler 10/29/16 Vancomycin 1,250 mg IVPB DAILY@1600 vial 10/29/16 This patient is new to me today: No Emergency Visit: Yes ED Registration Date: 10/22/16 Care time: The patient presented to the Emergency Department on the above date and was hospitalized for further evaluation of their emergent condition. Critical Care patient: No - Discharge Referral Referred to [facility] Med P.C.: No
[2016-10-29] MEDS: VANCOMYCIN 1,250 MG in DEXTROSE 5%-WATER - 250 ML IVPB SCH (17:27)
== END 2016-10-29 19:05 | DRG 854 ==
LOC: JER 15:22 → JERBED 19:49 → J4S 22:59 → J8W 10-26 21:19
PROVIDERS: ADMIT Internal Medicine; ATTEND Nurse Practitioner Family
PROC: 0QBN0ZZ Excision of Right Metatarsal, Open Approach (ICD-10-PCS; 2016-10-27)
PROC: 0JBQ0ZZ Excision of Right Foot Subcutaneous Tissue and Fascia, Open Approach (ICD-10-PCS; principal; 2016-10-27 15:30)
PROC: 02HV33Z Insertion of Infusion Device into Superior Vena Cava, Percutaneous Approach (ICD-10-PCS; 2016-10-29)
PROC: B518YZA Fluoroscopy of Superior Vena Cava using Other Contrast, Guidance (ICD-10-PCS; 2016-10-29)
DX: A41.9 Sepsis, unspecified organism (principal); N17.9 Acute kidney failure, unspecified; I69.354 Hemiplegia and hemiparesis following cerebral infarction affecting left non-dominant side; M86.171 Other acute osteomyelitis, right ankle and foot; J44.1 Chronic obstructive pulmonary disease with (acute) exacerbation; E11.40 Type 2 diabetes mellitus with diabetic neuropathy, unspecified; I25.10 Atherosclerotic heart disease of native coronary artery without angina pectoris; M10.9 Gout, unspecified; R65.20 Severe sepsis without septic shock; E11.621 Type 2 diabetes mellitus with foot ulcer; L97.519 Non-pressure chronic ulcer of other part of right foot with unspecified severity; G47.33 Obstructive sleep apnea (adult) (pediatric); D63.8 Anemia in other chronic diseases classified elsewhere; E78.5 Hyperlipidemia, unspecified; I11.9 Hypertensive heart disease without heart failure; I73.9 Peripheral vascular disease, unspecified; F03.90 Unspecified dementia, unspecified severity, without behavioral disturbance, psychotic disturbance, mood disturbance, and anxiety; E83.42 Hypomagnesemia; N18.3 Chronic kidney disease, stage 3 (moderate); E11.69 Type 2 diabetes mellitus with other specified complication; I13.10 Hypertensive heart and chronic kidney disease without heart failure, with stage 1 through stage 4 chronic kidney disease, or unspecified chronic kidney disease
CPT/HCPCS: 36415; 36558; 71010-TC; 73610-TC-RT; 73630-TC-RT; 75827-TC; 76000-TC; 76775-TC; 77001-TC; 80048; 80053; 81003; 81015; 82272; 82436; 82550; 82570; 82728; 82803; 83540; 83550; 83605; 83735; 84100; 84133; 84156; 84300; 84466; 84484; 84540; 85025; 85610; 85651; 85730; 86140; 86850; 86870; 86900; 86901; 86902; 87040; 87070; 87081; 87086; 87186; 87205; 88304-TC; 88311-TC; 93005; 93010; 93306-TC; 93923; 94640; 94760; 99285-25; C1751; G0480; J1644

== ENCOUNTER 2017-01-26 07:58 | Day surgery (SDC) | payer OTHER, BC ==
[2017-01-25 11:56] VITALS: BMI 29.3
[2017-01-26] MEDS ORDERED: VANCOMYCIN 1,000 MG VIAL (RESTRICTED TO ID ONLY) ONE (08:56)
[2017-01-26] MEDS ORDERED: LIDOCAINE HCL 1%, 10 MG/ML (20ML VIAL) ONE (09:48)
--- NOTE | 2017-01-26 10:07 | HP ---
[facility] - Chief Complaint History of Present Illness: 66 year old male DM neuropathy with open wound of right foot involving bone. He has been treated with IV antibiotics and wound care and VAC with improvement. 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: CVA Cardiovascular: Yes: HTN, Hyperlipdemia, Other (PAD) Pulmonary: Yes: Asthma, COPD, O2 Dependent, Pulmonary Fibrosis, Sleep Apnea Hepatobiliary: Yes: Cholecystitis Renal/: Yes: Renal Inusuff Musculoskeletal: Yes: Other (chronic foot ulcers) Endocrine: Yes: Diabetes Mellitus - Current Medications Current Medications: Home Medications Medication Instructions Recorded Allopurinol 300 mg PO DAILY 05/11/16 Atorvastatin Ca [Lipitor] 20 mg PO DAILY 05/11/16 Linagliptin [Tradjenta] 5 mg PO DAILY 05/11/16 Mupirocin Ointment [Bactroban 2% 1 applic TP BID 05/11/16 Ointment -] Nystatin Powder [Nystop Powder -] 60 gm TP DAILY 05/11/16 Peg 400/Hypromellose/Glycerin 1 drop OU DAILY 05/11/16 [Artificial Tears Drops] Tamsulosin HCl [Flomax -] 0.4 mg PO DAILY 05/11/16 Trazodone HCl [Desyrel -] 50 mg PO HS 05/11/16 Erythromycin 0.5% Eye Ointment 1 applic OD TID tube 07/19/16 [Erythromycin 0.5% Eye Ointment -] Losartan Potassium [Cozaar -] 25 mg PO DAILY tablet 07/19/16 Metoprolol Succinate [Toprol XL -] 25 mg PO DAILY tab.sr.24h 07/19/16 Neomycin/Polymyx/Hc Ophth Susp 1 drop OD Q4HWA drops 07/19/16 [Cortisporin *Ophthalmic Suspension* -] Nicotine Polacrilex [Nicorelief -] 2 mg BUC Q2H PRN #0 gum 07/19/16 Oxycodone HCl [Roxicodone -] 5 mg PO Q8H PRN #30 tablet MDD 3 07/19/16 Memantine HCl [Namenda Xr] 7 mg PO DAILY 07/22/16 Aclidinium [place] [Tudorza -] 1 puff IH BID inhaler 10/29/16 Albuterol 2.5/Ipratropium 0.5 1 amp NEB Q4H PRN #0 amp 10/29/16 [Duoneb -] Amlodipine Besylate [Norvasc -] 5 mg PO DAILY tablet 10/29/16 Clopidogrel Bisulfate [Plavix -] 75 mg PO DAILY tablet 10/29/16 Salmeterol/Fluticasone [Advair 1 puff IH BID inhaler 10/29/16 100Mcg/50Mcg -] Docusate Sodium [Colace -] 300 mg PO HS 01/25/17 Ferrous Sulfate 325 mg PO BID 01/25/17 Furosemide [Lasix] 20 mg PO ASDIR 01/25/17 Gabapentin 300 mg PO TID 01/25/17 Insulin (Levemir) [Levemir Flexpen 18 units SQ BID 01/25/17 -] Insulin Lispro [Humalog] 7 unit SQ AC 01/25/17 Oxybutynin Chloride [Ditropan Xl] 5 mg PO DAILY 01/25/17 Pantoprazole Sodium [Protonix] 40 mg PO DAILY 01/25/17 Picc Line Flush [Picc Line Flush -] 5 ml IVPUSH DAILY 01/25/17 Pramipexole Dihydrochloride 0.5 mg PO BID 01/25/17 [Mirapex -] Satellite Physical Exam - Physical Examination Vital Signs: Vital Signs Period Temp Pulse Resp BP Sys/Cintron Pulse Ox Last 24 Hr 98.9 F 88 18 124/72 92 General Appearance: Alert & Oriented x3 ENT: No masses Heart: Regular rate & rhythm Breasts: Non-Tender Extremities: No tenderness/swelling Satellite Impression/Plan - Impression/Plan Impression: Osteomyelitis right foot with open wound. Operative Procedure: Debridement right foot wound. Date to be Performed: 01/26/17
[2017-01-26] MEDS ORDERED: MIDAZOLAM HCL 2 MG/2 ML SINGLE DOSE VIAL ONE ×2 (10:33→10:35)
[2017-01-26] MEDS ORDERED: VANCOMYCIN 1,000 MG VIAL (RESTRICTED TO ID ONLY) IVPB ONE (10:36)
[2017-01-26] MEDS ORDERED: LIDOCAINE HCL 1%, 10 MG/ML (20ML VIAL) IJ ONE (10:53)
--- NOTE | 2017-01-26 11:27 | OP ---
Operative Note - Note: Operative Date: 01/26/17 Pre-Operative Diagnosis: Osteomyelitis right foot Operation: Excisional Debridement of right foot, skin and bone. Findings: Open plantar wound right foot involving metatarsal Surgeon: Jay Sanders Anesthesiologist/INTERLIBRARY LOAN SERVICES LIBRARIAN: Enedina Peoples MD Anesthesia: Fractional Specimens Removed: Skin, subcuatneous tissue and bone from midfoot Estimated Blood Loss (mls): 20
[2017-01-26] MEDS ORDERED: ACETAMINOPHEN 325 MG TABLET (FP) PO PRN (11:28)
[2017-01-26] MEDS ORDERED: oxyCODONE HCL 5 MG TABLET PO PRN (11:28)
[2017-01-26 12:16] VITALS: TEMP 98.7
--- NOTE | 2017-01-26 14:19 | OP ---
DATE OF OPERATION: 01/26/2017 SURGEON: Jay Arana MD PROCEDURE: Excisional debridement of right foot wound, including skin, subcutaneous tissues, and bone. PREOPERATIVE DIAGNOSIS: Open plantar wound of right foot involving metatarsal bones. POSTOPERATIVE DIAGNOSIS: Open plantar wound of right foot involving metatarsal bones. ANESTHESIA: Fractional. ANESTHESIOLOGIST: Enedina Peoples MD OPERATIVE FINDINGS: There was an open wound on the plantar aspect of her right foot extending down to ends of metatarsal bones which had been previously debrided. There was thick callus and scar tissue in the edges of the wound. OPERATIVE PROCEDURE: Following routine patient identification with side and site verification, intravenous sedation was established. The right foot was prepped with Betadine solution. One percent Xylocaine was infiltrated around the wound on the plantar aspect of the foot. The edges of the wound were incised and carried into the subcutaneous tissues. The area of undermining in the proximal foot was excised after probing with a forceps. Bleeding was controlled with cautery. The exposed ends of metatarsal bones were then freed with cautery and a Salome elevator. The metatarsals were debrided with bone cutter and rongeur to remove any bone that was extending into the wound. The ends of the bones were smoothed with rasp. The wound was irrigated with saline and packed open with Iodoform gauze. Sterile dressing was applied and the patient was taken to the recovery room in stable condition. JAY ARANA M.D. PATRICIA/[id number]
[2017-01-26] MEDS ORDERED: AMOX TR/POT CLAV 875MG/125MG TABLETS (FP) PO SCH (17:30)
[2017-01-26 18:51] VITALS: BP 133/69; PULSE 89
--- NOTE | 2017-01-28 13:34 | PATH ---
Surgical Pathology Report Patient Name: KAREN CAMARGO [facility]. Rec. #: [id number] /Age/Gender: 1950 (Age: 66) / M Account: [id number] Location: [facility] SURGICAL Taken: 01/26/2017 Received: 01/26/2017 Reported: 01/28/2017 Physicians: Jay Sanders M.D. Specimen(s) Received DEBRIDED TISSUE & BONE RIGHT FOOT Clinical History Osteomyelitis right foot Final Diagnosis BONE AND SOFT TISSUE, RIGHT FOOT, DEBRIDEMENT: BONE WITH ACUTE AND CHRONIC OSTEOMYELITIS SOFT TISSUES WITH ACUTE NECROTIZING INFLAMMATION AND GANGRENOUS NECROSIS. Electronically Signed Nam Nichols M.D. Gross Description Received in formalin labeled "right foot debrided tissue and bone" is a 6.0 x 5.2 x 1.0 cm aggregate of rod soft tissue and bone fragments. A development representative portion is submitted in one cassette, following decalcification. /01/27/2017 [place]01/27/2017
== END 2017-01-26 13:30 ==
LOC: JASU-SURG 07:58
PROVIDERS: ATTEND Surgery
PROC: 0JBQ0ZZ Excision of Right Foot Subcutaneous Tissue and Fascia, Open Approach (ICD-10-PCS; 2017-01-26)
PROC: 0QBN0ZZ Excision of Right Metatarsal, Open Approach (ICD-10-PCS; principal; 2017-01-26 09:30)
DX: M86.671 Other chronic osteomyelitis, right ankle and foot (principal); I96 Gangrene, not elsewhere classified; E11.40 Type 2 diabetes mellitus with diabetic neuropathy, unspecified; Z79.4 Long term (current) use of insulin; I12.9 Hypertensive chronic kidney disease with stage 1 through stage 4 chronic kidney disease, or unspecified chronic kidney disease; E11.22 Type 2 diabetes mellitus with diabetic chronic kidney disease; N18.9 Chronic kidney disease, unspecified; J44.9 Chronic obstructive pulmonary disease, unspecified; Z99.81 Dependence on supplemental oxygen
CPT/HCPCS: 88304-TC; 94760

== ENCOUNTER 2017-02-25 16:18 | Inpatient (IN) | payer OTHER, BC ==
--- NOTE | 2017-02-25 17:12 | PDOC ---
History of Present Illness - General History Source: Patient Exam Limitations: No Limitations - History of Present Illness Initial Comments: 02/25/17 18:20 The patient is a 66 -year-old male, with a significant past medical history of COPD(3 L O2 at home), asthma, DM(well controlled), CAD, CVA(left sided weakness) , hypertension, hyperlipidemia, gout, renal insufficiency, and osteomyelitis, who presents to the ED with fever and pain to right foot. Pts visiting nurse came to his home today change the dressing on his right foot wound. She took the pts temperature and noted it to be 101. Pt was brought to the ED for further evaluation. On exam, pt is complaining of right foot pain. He denies any fever, chills, nausea, vomiting, diarrhea, and abdominal pain. He denies any chest pain or shortness of breath. He denies any headache. <Nena Arguelles - Last Filed: 02/25/17 18:20> <Shalini Martinez - Last Filed: 02/26/17 01:37> - General Chief Complaint: Weakness Stated Complaint: SHORTNESS OF BREATH Time Seen by Provider: 02/25/17 17:12 Past History <Nena Arguelles - Last Filed: 02/25/17 18:20> - Past Medical History Anemia: No Asthma: Yes Cancer: No Cardiac Disorders: Yes (CAD) CVA: Yes (L sided weakness) COPD: Yes (3L O2 NC AT HOME) CHF: No Dementia: No Diabetes: Yes GI Disorders: No Disorders: Yes HTN: Yes Hypercholesterolemia: Yes Liver Disease: No Suicide Attempt (Hx): No Seizures: No Thyroid Disease: No - Surgical History Abdominal Surgery: No Appendectomy: Yes Cardiac Surgery: No Cholecystectomy: Yes Lung Surgery: No Neurologic Surgery: No Orthopedic Surgery: No - Immunization History Immunization Up to Date: Yes - Psycho/Social/Smoking Cessation Hx Anxiety: No Suicidal Ideation: No Smoking Status: No Smoking History: Former smoker Have you smoked in the past 12 months: No Number of Cigarettes Smoked Daily: 10 If you are a former smoker, when did you quit?: May 2014 Information on smoking cessation initiated: No 'Breaking Loose' booklet given: 08/22/15 Hx Alcohol Use: No Drug/Substance Use Hx: No Substance Use Type: None Hx Substance Use Treatment: No <Shalini Martinez - Last Filed: 02/26/17 01:37> - Past Medical History Allergies/Adverse Reactions: Allergies Allergy/AdvReac Type Severity Reaction Status Date / Time No Known Drug Allergies Allergy Verified 02/25/17 16:38 Home Medications: Ambulatory Orders Allopurinol 300 mg PO DAILY 05/11/16 Atorvastatin Ca [Lipitor] 20 mg PO DAILY 05/11/16 Linagliptin [Tradjenta] 5 mg PO DAILY 05/11/16 Mupirocin Ointment [Bactroban 2% Ointment -] 1 applic TP BID 05/11/16 Nystatin Powder [Nystop Powder -] 60 gm TP DAILY 05/11/16 Peg 400/Hypromellose/Glycerin [Artificial Tears Drops] 1 drop OU DAILY 05/11/16 Tamsulosin HCl [Flomax -] 0.4 mg PO DAILY 05/11/16 Trazodone HCl [Desyrel -] 50 mg PO HS 05/11/16 Erythromycin 0.5% Eye Ointment [Erythromycin 0.5% Eye Ointment -] 1 applic OD TID tube 07/19/16 Losartan Potassium [Cozaar -] 25 mg PO DAILY tablet 07/19/16 Metoprolol Succinate [Toprol XL -] 25 mg PO DAILY tab.sr.24h 07/19/16 Neomycin/Polymyx/Hc Ophth Susp [Cortisporin *Ophthalmic Suspension* -] 1 drop OD Q4HWA drops 07/19/16 Nicotine Polacrilex [Nicorelief -] 2 mg BUC Q2H PRN #0 gum 07/19/16 Oxycodone HCl [Roxicodone -] 5 mg PO Q8H PRN #30 tablet MDD 3 07/19/16 Memantine HCl [Namenda Xr] 7 mg PO DAILY 07/22/16 Aclidinium [place] [Tudorza -] 1 puff IH BID inhaler 10/29/16 Albuterol 2.5/Ipratropium 0.5 [Duoneb -] 1 amp NEB Q4H PRN #0 amp 10/29/16 Amlodipine Besylate [Norvasc -] 5 mg PO DAILY tablet 10/29/16 Clopidogrel Bisulfate [Plavix -] 75 mg PO DAILY tablet 10/29/16 Salmeterol/Fluticasone [Advair 100Mcg/50Mcg -] 1 puff IH BID inhaler 10/29/16 Docusate Sodium [Colace -] 300 mg PO HS 01/25/17 Ferrous Sulfate 325 mg PO BID 01/25/17 Furosemide [Lasix] 20 mg PO ASDIR 01/25/17 Gabapentin 300 mg PO TID 01/25/17 Insulin (Levemir) [Levemir Flexpen -] 18 units SQ BID 01/25/17 Insulin Lispro [Humalog] 7 unit SQ AC 01/25/17 Oxybutynin Chloride [Ditropan Xl] 5 mg PO DAILY 01/25/17 Pantoprazole Sodium [Protonix] 40 mg PO DAILY 01/25/17 Pramipexole Dihydrochloride [Mirapex -] 0.5 mg PO BID 01/25/17 Amox-Tr/K Cl [Augmentin - 875Mg Tablet] 1 tab PO BID #14 tablet 01/26/17 Review of Systems - Review of Systems Able to Perform ROS?: Yes Comments:: 02/25/17 18:21 GENERAL/CONSTITUTIONAL: +fever. No chills. No weakness. HEAD, EYES, EARS, NOSE AND THROAT: No change in vision. No ear pain or discharge. No sore throat. CARDIOVASCULAR: No chest pain or shortness of breath. RESPIRATORY: No cough, wheezing, or hemoptysis. GASTROINTESTINAL: No nausea, vomiting, diarrhea or constipation. GENITOURINARY: No dysuria, frequency, or change in urination. MUSCULOSKELETAL: +right foot pain. No joint swelling or pain. No neck or back pain. SKIN: +right foot wound NEUROLOGIC: No headache, vertigo, loss of consciousness, or change in strength/ sensation. ENDOCRINE: No increased thirst. No abnormal weight change. HEMATOLOGIC/LYMPHATIC: No anemia, easy bleeding, or history of blood clots. ALLERGIC/IMMUNOLOGIC: No hives or skin allergy. <Nena Arguelles - Last Filed: 02/25/17 18:20> *Physical Exam - Vital Signs Last Vital Signs Temp Pulse Resp BP Pulse Ox 100.6 F H 81 20 101/57 95 02/25/17 16:43 02/25/17 16:43 02/25/17 16:43 02/25/17 16:43 02/25/17 16:43 <Nena Arguelles - Last Filed: 02/25/17 18:20> - Vital Signs Last Vital Signs Temp Pulse Resp BP Pulse Ox 100.6 F H 81 20 101/57 95 02/25/17 16:43 02/25/17 16:43 02/25/17 16:43 02/25/17 16:43 02/25/17 16:43 - Physical Exam Comments: GENERAL: Awake, alert, and fully oriented, in no acute distress HEAD: No signs of trauma EYES: PERRLA, EOMI, sclera anicteric, conjunctiva clear ENT: Auricles normal inspection, hearing grossly normal, nares patent, oropharynx clear without exudates. Moist mucosa NECK: Normal ROM, supple, no lymphadenopathy, JVD, or masses LUNGS: Breath sounds equal, clear to auscultation bilaterally. No wheezes, and no crackles HEART: Regular rate and rhythm, normal S1 and S2, no murmurs, rubs or gallops ABDOMEN: Soft, nontender, normoactive bowel sounds. No guarding, no rebound. No masses EXTREMITIES: Normal range of motion, no edema. No clubbing or cyanosis. No cords, erythema, or tenderness NEUROLOGICAL: Cranial nerves II through XII grossly intact. Normal speech, normal gait SKIN: Warm, Dry, normal turgor, no rashes. +Large ulcer to R plantar foot, trace serous drainage. No odor noted. <Shalini Martinez - Last Filed: 02/26/17 01:37> ED Treatment Course - LABORATORY CBC & Chemistry Diagram: 02/25/17 17:31 02/25/17 17:31 - ADDITIONAL ORDERS Additional order review: Laboratory Results 02/25/17 17:31 INR 1.48 H PTT (Actin FS) 32.2 02/25/17 17:31 RBC 4.86 D MCV 70.0 L MCHC 30.1 L RDW 18.9 H MPV 11.7 H D Neutrophils % 81.7 Lymphocytes % 8.0 D Monocytes % 9.7 Eosinophils % 0.2 D Basophils % 0.4 <Nena Arguelles - Last Filed: 02/25/17 18:20> - LABORATORY CBC & Chemistry Diagram: 02/25/17 17:31 02/25/17 17:31 <Shalini Martinez - Last Filed: 02/26/17 01:37> Medical Decision Making - Medical Decision Making 02/26/17 01:32 Late entry. Patient with history of MRSA in the past, has an open wound to the R foot that has been recently debrided. There is minimal drainage at present, which I cultured. Patient also has history of PICC line that was recently removed- possibly endocarditis? He has been unable to provide urine so far, will attempt to get UA prior to antibiotics. Admitted to hospitalist service with broad spectrum abx. <Shalini Martinez - Last Filed: 02/26/17 01:37> *DC/Admit/Observation/Transfer - Attestations Scribe Attestion: 02/25/17 18:23 Documentation prepared by Nena Arguelles, acting as medical education manager for Shalini Martinez MD. <Nena Arguelles - Last Filed: 02/25/17 18:20> - Discharge Dispostion Admit: Yes <Shalini Martinez - Last Filed: 02/26/17 01:37> Diagnosis at time of Disposition: Wound, open, foot Qualifiers: Encounter type: initial encounter Laterality: right Qualified Code(s): S91.301A - Unspecified open wound, right foot, initial encounter Fever Qualifiers: Fever type: unspecified Qualified Code(s): R50.9 - Fever, unspecified Acute renal failure Qualifiers: Acute renal failure type: unspecified Qualified Code(s): N17.9 - Acute kidney failure, unspecified - Discharge Dispostion Condition at time of disposition: Stable
[2017-02-25 17:46] LABS: BASOPHIL 0.4 % (0-2.0); EOSINOPHIL 0.2 % (0-4.5); MCHC 30.1 g/dl (32.0-35.9); MEAN PLT VOLUME 11.7 fl (7.5-11.1); NEUTROPHILS 81.7 % (42.8-82.8); PLATELET COUNT 151 K/MM3 (134-434); RDW 18.9 % (11.9-15.9)
[2017-02-25 18:05] LABS: INR 1.48 (0.82-1.09); PROTHROMBIN TIME (PATIENT) 16.4 SEC (9.98-11.88)
[2017-02-25 18:08] LABS: ACTIVATED PTT 32.2 SECONDS (26.9-34.4)
[2017-02-25 18:18] LABS: ALBUMIN 2.7 g/dl (3.4-5.0); ANION GAP 9 (8-16); CALCIUM 8.4 mg/dL (8.5-10.1); CO2 25 mmol/L (21-32); CREATININE 2.6 mg/dL (0.7-1.3); GLUCOSE,RANDOM 173 mg/dL (74-106); SGOT/AST 36 U/L (15-37); SGPT/ALT 20 U/L (12-78)
[2017-02-25 18:23] LABS: ALK PHOS 117 U/L (45-117); BILIRUBIN,TOTAL 0.5 mg/dL (0.2-1.0); CPK 874 IU/L (39-308); TROPONIN I 0.02 ng/ml (0.00-0.05)
[2017-02-25 18:43] LABS: PLATELET COMMENT2 NO CLOTTING DETECTED; PLATELET COMMENT3 FEW LARGE PLTS; PLATELET ESTIMATE ADEQUATE (NORMAL)
[2017-02-25 18:44] LABS: ANISOCYTOSIS 2+; HYPOCHROMIA 2+; MICROCYTOSIS 2+; POIKILOCYTOSIS 2+; POLYCHROMASIA 1+
[2017-02-26] MEDS ORDERED: SODIUM CHLORIDE 250 ML IV STA (00:05)
[2017-02-26] MEDS ORDERED: PIPERACILLIN/TAZOB 3.375 GM 3.375 GM in DEXTROSE 5%-WATER - 50 ML IVPB ONE (01:28)
[2017-02-26] MEDS ORDERED: VANCOMYCIN 1,000 MG in DEXTROSE 5%-WATER - 250 ML IVPB SCH ×2 (01:30→03:16)
[2017-02-26] MEDS: SODIUM CHLORIDE 1,000 ML IV SCH (01:45)
[2017-02-26] MEDS ORDERED: NICOTINE POLACRILEX 2 MG GUM BUC PRN (01:46)
[2017-02-26 02:08] LABS: URINE APPEARANCE CLEAR; URINE BILIRUBIN NEGATIVE (NEGATIVE); URINE BLOOD NEGATIVE (NEGATIVE); URINE COLOR YELLOW; URINE GLUCOSE (UA) NEGATIVE (NEGATIVE); URINE KETONE NEGATIVE (NEGATIVE); URINE LEUK ESTERASE NEGATIVE (NEGATIVE); URINE NITRITE NEGATIVE (NEGATIVE); URINE PROTEIN NEGATIVE (NEGATIVE); URINE UROBILINOGEN NEGATIVE mg/dL (0.2-1.0)
[2017-02-26] MEDS ORDERED: PIPERACILLIN/TAZOB 3.375 GM 50 ML IVPB ONE (02:38)
[2017-02-26] MEDS ORDERED: VANCOMYCIN 1 GRAM (PRE-DOCKED) 1,000 MG/250 ML BAG IVPB ONE (03:30)
[2017-02-26 03:51] VITALS: BMI 29.2
--- NOTE | 2017-02-26 03:54 | HP ---
CHIEF COMPLAINT: Fever PCP: Mack, Vascular: Tommy HISTORY OF PRESENT ILLNESS: This is a 66 year old male with a past medical history significant for DM with PVD and neuropathy with chronic wounds to his feet presented with fever today. His visiting nurse felt that he was warm, took his temperature which was reportedly 101 and called an ambulance. Pt did not feel feverish. He denies chills, nausea, vomiting, diarrhea, and abdominal pain. He denies any chest pain or shortness of breath. He denies any headache. Reports cough at times with difficulty bringing up phlegm. Reports pain in right foot as well. He is s/ p debridement on 01/26/17. ER course was notable for: (1) Temp 100.6, WBC 17.0 (2) BUN 43/ Cr 2.6 Recent Travel: pt denies PAST MEDICAL HISTORY: COPD(3 L O2 at home) asthma pulmonary fibrosis sleep apnea DM CAD CVA(left sided weakness) hypertension hyperlipidemia gout renal insufficiency chronic foot wounds, followed by vasc surgery PAST SURGICAL HISTORY: L second toe amputation appendectomy cholecystectomy tonsillectomy bypass (leg) eye surgery due to fractured orbit 07/2016 R carotid endarterectomy Social History: retired [employer] department Smoking: Quit May 2016, smoked 5-7 cig/day Alcohol: Occ Drugs: pt denies Family History: extremely poor historian, history limited mother age 86, alzheimer's and "a lot of other problems" father age 94, prostate CA Allergies No Known Drug Allergies Allergy (Verified 02/25/17 16:38) HOME MEDICATIONS: 3 Medication Instructions Recorded Allopurinol 300 mg PO DAILY 05/11/16 Atorvastatin Ca [Lipitor] 20 mg PO DAILY 05/11/16 Linagliptin [Tradjenta] 5 mg PO DAILY 05/11/16 Mupirocin Ointment [Bactroban 2% 1 applic TP BID 05/11/16 Ointment -] Nystatin Powder [Nystop Powder -] 60 gm TP DAILY 05/11/16 Peg 400/Hypromellose/Glycerin 1 drop OU DAILY 05/11/16 [Artificial Tears Drops] Tamsulosin HCl [Flomax -] 0.4 mg PO DAILY 05/11/16 Trazodone HCl [Desyrel -] 50 mg PO HS 05/11/16 Erythromycin 0.5% Eye Ointment 1 applic OD TID tube 07/19/16 [Erythromycin 0.5% Eye Ointment -] Losartan Potassium [Cozaar -] 25 mg PO DAILY tablet 07/19/16 Metoprolol Succinate [Toprol XL -] 25 mg PO DAILY tab.sr.24h 07/19/16 Neomycin/Polymyx/Hc Ophth Susp 1 drop OD Q4HWA drops 07/19/16 [Cortisporin *Ophthalmic Suspension* -] Nicotine Polacrilex [Nicorelief -] 2 mg BUC Q2H PRN #0 gum 07/19/16 Oxycodone HCl [Roxicodone -] 5 mg PO Q8H PRN #30 tablet MDD 3 07/19/16 Memantine HCl [Namenda Xr] 7 mg PO DAILY 07/22/16 Aclidinium [place] [Tudorza -] 1 puff IH BID inhaler 10/29/16 Albuterol 2.5/Ipratropium 0.5 1 amp NEB Q4H PRN #0 amp 10/29/16 [Duoneb -] Amlodipine Besylate [Norvasc -] 5 mg PO DAILY tablet 10/29/16 Clopidogrel Bisulfate [Plavix -] 75 mg PO DAILY tablet 10/29/16 Salmeterol/Fluticasone [Advair 1 puff IH BID inhaler 10/29/16 100Mcg/50Mcg -] Docusate Sodium [Colace -] 300 mg PO HS 01/25/17 Ferrous Sulfate 325 mg PO BID 01/25/17 Furosemide [Lasix] 20 mg PO ASDIR 01/25/17 Gabapentin 300 mg PO TID 01/25/17 Insulin (Levemir) [Levemir Flexpen 18 units SQ BID 01/25/17 -] Insulin Lispro [Humalog] 7 unit SQ AC 01/25/17 Oxybutynin Chloride [Ditropan Xl] 5 mg PO DAILY 01/25/17 Pantoprazole Sodium [Protonix] 40 mg PO DAILY 01/25/17 Pramipexole Dihydrochloride 0.5 mg PO BID 01/25/17 [Mirapex -] Amox-Tr/K Cl [Augmentin - 875Mg 1 tab PO BID #14 tablet 01/26/17 Tablet] REVIEW OF SYSTEMS CONSTITUTIONAL: Present: fever Absent: chills, diaphoresis, generalized weakness, malaise, loss of appetite, weight change HEENT: Absent: rhinorrhea, nasal congestion, throat pain, throat swelling, difficulty swallowing, mouth swelling, ear pain, eye pain, visual changes CARDIOVASCULAR: Absent: chest pain, syncope, palpitations, irregular heart rate, lightheadedness , peripheral edema RESPIRATORY: Present: cough Absent: shortness of breath, dyspnea with exertion, orthopnea, wheezing, stridor , hemoptysis GASTROINTESTINAL: Absent: abdominal pain, abdominal distension, nausea, vomiting, diarrhea, constipation, melena, hematochezia GENITOURINARY: Absent: dysuria, frequency, urgency, hesitancy, hematuria, flank pain, genital pain MUSCULOSKELETAL: Absent: myalgia, arthralgia, joint swelling, back pain, neck pain SKIN: Absent: rash, itching, pallor HEMATOLOGIC/IMMUNOLOGIC: Absent: easy bleeding, easy bruising, lymphadenopathy, frequent infections ENDOCRINE: Absent: unexplained weight gain, unexplained weight loss, heat intolerance, cold intolerance NEUROLOGIC: Absent: headache, focal weakness or paresthesias, dizziness, unsteady gait, seizure, mental status changes, bladder or bowel incontinence PSYCHIATRIC: Absent: anxiety, depression, suicidal or homicidal ideation, hallucinations. PHYSICAL EXAMINATION Vital Signs - 24 hr 3 02/25/17 02/25/17 02/25/17 02/26/17 16:43 17:30 20:14 02:31 Temperature 100.6 F H 99.0 F 97.6 F Pulse Rate 81 70 Pulse Rate [ 70 69 Apical] Respiratory 20 18 18 Rate Blood Pressure 101/57 Blood Pressure 112/72 [Left Arm] O2 Sat by Pulse 95 95 98 100 Oximetry (%) GENERAL: Awake, alert, and fully oriented, in no acute distress. HEAD: Normal with no signs of trauma. EYES: Pupils equal, round and reactive to light, extraocular movements intact, sclera anicteric, conjunctiva clear. No lid lag. EARS, NOSE, THROAT: Ears normal, nares patent, oropharynx clear without exudates. Moist mucous membranes. NECK: Normal range of motion, supple without lymphadenopathy, JVD, or masses. LUNGS: Breath sounds equal, clear to auscultation bilaterally. No wheezes, and no crackles. No accessory muscle use. HEART: Regular rate and rhythm, normal S1 and S2 without murmur, rub or gallop. ABDOMEN: Soft, nontender, not distended, normoactive bowel sounds, no guarding, no rebound, no masses. No hepatomegaly or splenomegaly. MUSCULOSKELETAL: Normal range of motion at all joints. No bony deformities or tenderness. No CVA tenderness. left foot 2nd toe amputation UPPER EXTREMITIES: 2+ pulses, warm, well-perfused. No cyanosis. No clubbing. No peripheral edema. LOWER EXTREMITIES: weak pedal pulses, warm, well-perfused. No calf tenderness. + swelling noted to right foot, Slight erythema, no excessive warmth, wound to plantar surface, 4cm x 2.9cm x 2.0cm, wound edges noted with necrotic tissue, approx 20%. remainder of wound bed pink granulation tissue, no foul odor, moderate serosanguinous discharge NEUROLOGICAL: Cranial nerves II-XII intact. Normal speech. Normal gait. PSYCHIATRIC: Cooperative. Good eye contact. Appropriate mood and affect. SKIN: Warm, dry, normal turgor, no rashes or lesions noted, normal capillary refill. Laboratory Results - last 24 hr 3 02/25/17 02/25/17 02/25/17 02/25/17 17:31 17:31 17:31 17:40 WBC 17.0 H D RBC 4.86 D Hgb 10.2 L D Hct 34.0 L D MCV 70.0 L MCH 21.0 L MCHC 30.1 L RDW 18.9 H Plt Count 151 D MPV 11.7 H D Neutrophils % 81.7 Lymphocytes % 8.0 D Monocytes % 9.7 Eosinophils % 0.2 D Basophils % 0.4 Differential Comment Slide scanned Platelet Estimate Adequate Platelet Comment No clotting detected Polychromasia 1+ Hypochromic-Microcytic 2+ Poikilocytosis 2+ Anisocytosis 2+ Microcytosis 2+ INR 1.48 H PTT (Actin FS) 32.2 Sodium 136 Potassium 4.2 Chloride 102 Carbon Dioxide 25 Anion Gap 9 BUN 43 H D Creatinine 2.6 H D Creat Clearance w eGFR 24.82 Random Glucose 173 H D Lactic Acid 1.9 Calcium 8.4 L Total Bilirubin 0.5 D AST 36 D ALT 20 D Alkaline Phosphatase 117 Creatine Kinase 874 H Creatine Kinase Index 0.7 CK-MB (CK-2) 6.227 H Troponin I 0.02 Total Protein 7.0 Albumin 2.7 L Urine Color Urine Appearance Urine pH Urine Protein Urine Glucose (UA) Urine Ketones Urine Blood Urine Nitrite Urine Bilirubin Urine Urobilinogen Ur Leukocyte Esterase Blood Type B POSITIVE Antibody Screen Positive H Prewarmed Antibody Srcn Negative 3 02/26/17 01:55 Urine Color Yellow Urine Appearance Clear Urine pH 5.0 Urine Protein Negative Urine Glucose (UA) Negative Urine Ketones Negative Urine Blood Negative Urine Nitrite Negative Urine Bilirubin Negative Urine Urobilinogen Negative Ur Leukocyte Esterase Negative Radiology results: CXR, official read pending, no obvious infiltrate, effusion ASSESSMENT/PLAN: 66yM with PMH COPD, O2 dependent, asthma, sleep apnea, pulmonary fibrosis, CAD, CVA, HTN, HLD, GI bleed, DM with PVD, CKD & neuropathy, chronic R foot wound presented to the ED with fever and pain in right foot. ID: Sepsis secondary to R foot wound, likely OM - meets SIRS criteria of fever, elevated WBC - vanco and zosyn given in ED, cont same - ID consult with Dr. Benitez as he has seen him in past - vascular consult with Dr. Sanders - pt with recent PICC removal as per ED physician, will order echo - wound dressing with santyl daily Renal: Acute kidney injury - ? hypovolemia due to overdiuresis with lasix vs due to sepsis - Will give gentle hydration NS @75cc/hr, repeat BMP in am, if not improving , renal consult - hold ARB and lasix for now. Pulm: COPD/asthma - cont advair, tudorza and duoneb PRN - cont oxygen 3L NC continuously sleep apnea - pt states was previously on sleep machine at home but "they took it away because I didn't use it". He is interested in utilizing again. Refer to pulmonology on DC Cardio: HTN/CAD - hold Cozaar due to JESÚS - cont home amlodipine and toprol - cont home plavix - elevated CKMB on labs, but troponin WNL, will repeat in AM but no s/s ACS HLD - cont home lipitor Endo: DM - give home tradjenta if can be obtained as it is nonformulary - cont levemir 22u QHS (most recent dose as per pt) with novolog SS, denies standing premeal insulin Gout - cont allopurinol. GI - cont home PPI DVT PPX - heparin 5000u TID FEN - NS @ 75cc/hr - repeat BMP in am - diabetic / low sodium diet as tolerated Dispo: Pt currently requires inpatient management of his emergent condition. Visit type - Emergency Visit Emergency Visit: Yes ED Registration Date: 02/25/17 Care time: The patient presented to the Emergency Department on the above date and was hospitalized for further evaluation of their emergent condition. - New Patient This patient is new to me today: Yes Date on this admission: 02/26/17 - Critical Care Critical Care patient: No
[2017-02-26] MEDS: HEPARIN NA (PORCINE) 5,000 UNITS/ML 1ML VIAL SQ SCH ×3 (06:10→22:28)
[2017-02-26] MEDS: sitaGLIPtin PHOSPHATE 50 MG TABLET PO SCH (06:11)
[2017-02-26] MEDS: GABAPENTIN 300 MG CAPSULE (FP) PO SCH ×3 (06:11→22:27)
[2017-02-26] MEDS: INSULIN SLIDING SCALE (NOVOLOG) 1 VIAL SQ SCH ×4 (06:11→22:30)
[2017-02-26] MEDS: ERYTHROMYCIN 0.5% OPHTHALMIC OINTMENT 3.5 GM TUBE OD SCH ×4 (06:25→22:28)
[2017-02-26 08:37] LABS: CPK 731 IU/L (39-308); TROPONIN I < 0.02 ng/ml (0.00-0.05)
[2017-02-26 08:44] LABS: PHOSPHOROUS 3.2 mg/dL (2.5-4.9)
[2017-02-26 08:48] LABS: BASOPHIL 0.6 % (0-2.0); EOSINOPHIL 1.9 % (0-4.5); MCH 21.2 pg (25.7-33.7); MCHC 30.2 g/dl (32.0-35.9); MEAN CELL VOLUME 70.1 fl (80-96); MEAN PLT VOLUME 11.2 fl (7.5-11.1); NEUTROPHILS 82.2 % (42.8-82.8); WHITE BLOOD COUNT 12.8 K/mm3 (4.0-10.0)
[2017-02-26 08:53] LABS: ANION GAP 8 (8-16); CALCIUM 8.2 mg/dL (8.5-10.1); CO2 26 mmol/L (21-32); CREATININE 2.4 mg/dL (0.7-1.3); GLUCOSE,RANDOM 139 mg/dL (74-106); MAGNESIUM 1.9 mg/dL (1.8-2.4)
[2017-02-26] MEDS: TAMSULOSIN HCL 0.4 MG CAP.ER.24H (FP) PO SCH (09:30)
[2017-02-26] MEDS: oxyCODONE HCL 5 MG TABLET PO PRN (09:31)
[2017-02-26] MEDS: FERROUS SO4 325 MG TABLET (FP) PO SCH ×2 (09:31→22:27)
[2017-02-26] MEDS: ALLOPURINOL 300 MG TABLET (FP) PO SCH (09:32)
[2017-02-26] MEDS: CLOPIDOGREL BISULFATE 75 MG TABLET (FP) PO SCH (09:32)
[2017-02-26] MEDS: PANTOPRAZOLE 40 MG TABLET (FP) PO SCH (09:32)
[2017-02-26] MEDS: amLODIPine BESYLATE 5 MG TABLET (FP) PO SCH (09:37)
[2017-02-26] MEDS: METOPROLOL SUCCINATE 25 MG TAB.SR.24H (FP) PO SCH (09:37)
--- NOTE | 2017-02-26 09:42 | HOSP ---
Subjective - Review of Symptoms Subjective: asymptomatic. states he had the shakes and fever yesterday (temp at home 101) and came to the hospital. was treated for MRSA OM and bacteremia 09/2016 and treated Vanco x4 weeks with PICC line. states he had wound vac in place and VNS was coming to change the wound vac when noted he appeared feverish. denies CP, SOB, cough, N/V/C/D Current Medications Generic Name Dose Route Start Last Admin Trade Name Freq PRN Reason Stop Dose Admin Acetaminophen 650 mg 02/26/17 01:43 Tylenol - PO Q6H PRN FEVER OR PAIN Aclidinium [place] 1 puff 02/26/17 10:00 Tudorza - IH BID MISSAEL Albuterol/Ipratropium 1 amp 02/26/17 01:46 Duoneb - NEB Q4H PRN SHORTNESS OF BREATH Allopurinol 300 mg 02/26/17 10:00 02/26/17 09:32 Zyloprim - PO 300 mg DAILY MISSAEL Administration Amlodipine Besylate 5 mg 02/26/17 10:00 02/26/17 09:37 Norvasc - PO 5 mg DAILY MISSAEL Administration Artificial Tears 1 drop 02/26/17 07:20 Artificial Tears OU DAILY PRN DRY EYES Atorvastatin Calcium 20 mg 02/26/17 22:00 Lipitor - PO HS MISSAEL Clopidogrel Bisulfate 75 mg 02/26/17 10:00 02/26/17 09:32 Plavix - PO 75 mg DAILY MISSAEL Administration Collagenase 1 applic 02/26/17 10:00 Santyl - TP DAILY MISSAEL Docusate Sodium 300 mg 02/26/17 22:00 Colace - PO HS MISSAEL Erythromycin 1 applic 02/26/17 06:00 02/26/17 06:25 Erythromycin 0.5% Eye Ointment OD Not Given TID MISSAEL Ferrous Sulfate 325 mg 02/26/17 10:00 02/26/17 09:31 Feosol - PO 325 mg BID MISSAEL Administration Gabapentin 300 mg 02/26/17 06:00 02/26/17 06:11 Neurontin - PO 300 mg TID MISSAEL Administration Heparin Sodium (Porcine) 5,000 unit 02/26/17 06:00 02/26/17 06:10 Heparin - SQ 5,000 unit TID MISSAEL Administration Sodium Chloride 1,000 mls @ 75 mls/hr 02/26/17 01:45 02/26/17 01:45 Normal Saline - IV 75 mls/hr ASDIR MISSAEL Administration Insulin Aspart 1 vial 02/26/17 07:00 02/26/17 06:11 Novolog Vial Sliding Scale - SQ 2 unit ACHS MISSAEL Administration Protocol Insulin Detemir 22 units 02/26/17 22:00 Levemir Vial SQ HS [facility] Metoprolol Succinate 25 mg 02/26/17 10:00 02/26/17 09:37 Toprol Xl - PO 25 mg DAILY MISSAEL Administration Nicotine Polacrilex 2 mg 02/26/17 01:46 Nicorette Gum - BUC Q2H PRN NICOTINE REPLACEMENT RX Non-Formulary Medication 7 mg 02/26/17 10:00 Memantine Hcl [Namenda Xr] PO DAILY MISSAEL Oxycodone HCl 5 mg 02/26/17 01:43 02/26/17 09:31 Roxicodone - PO 5 mg Q4H PRN Administration PAIN Pantoprazole Sodium 40 mg 02/26/17 10:00 02/26/17 09:32 Protonix - PO 40 mg DAILY [facility] Administration Pramipexole Dihydrochloride 0.5 mg 02/26/17 10:00 Mirapex - PO BID [facility] Fluticasone/Salmeterol 1 puff 02/26/17 10:00 Advair 100mcg/50mcg - IH BID [facility] Sitagliptin Phosphate 50 mg 02/26/17 07:00 02/26/17 06:11 Januvia - PO 50 mg DAILY@0700 MISSAEL Administration Solifenacin 5 mg 02/26/17 10:00 Vesicare - PO DAILY [facility] Tamsulosin HCl 0.4 mg 02/26/17 08:30 02/26/17 09:30 Flomax - PO 0.4 mg DAILY@0830 [facility] Administration Trazodone HCl 50 mg 02/26/17 22:00 Desyrel - PO HS [facility] Vancomycin HCl 1,000 mg 02/26/17 10:00 Vancomycin (Pre-Docked) IVPB BID [facility] Last Vital Signs Temp Pulse Resp BP Pulse Ox 99 F 69 20 114/57 94 L 02/26/17 06:00 02/26/17 06:00 02/26/17 06:00 02/26/17 06:00 02/26/17 03:51 General NAD CV S1 S2 RRR no murmur/rub/gallop Lungs CTA B/l no wheezing/rales/rhonchi Abdomen soft NT/ND obese Extremities R foot with plantar aspect 1 cm deep ulcer no probing to bone, good granulation tissue, no drainage, tenderness or warmth. no pedal edema 65 year old male with a past medical history of COPD-oxygen depending, asthma, SAMMY, DM, GI bleed, CAD, CVA (left sided weakness), HTN, HLD, and gout. Treated earlier this year for OM with MRSA bacteremia presented with fever 1. Sepsis due to suspected R foot ulcer- Tm 100.6 here. check ESR/CRP. awaiting foot xray. concern for OM as had recent resection of transmetatarsal heads of multiple digits and treatment for MRSA bacteremia and OM. received Vanco/zosyn in the Er. dose vanco per vanco trough. echo ordered to r/o endocarditis however there is low suspicion at this time. ID and vasc surgery consulted. f/u cx 2. Acute on CKD- likely duet to sepsis. mild improvement. cont gentle IV hydration. avoid nephrotoxic agents 3. DM- cont home medications, ISS, levemir, BGM. diabetic diet Physical Examination Vital Signs: Vital Signs Temperature 99 F 02/26/17 06:00 Pulse Rate 69 02/26/17 06:00 Respiratory Rate 20 02/26/17 06:00 Blood Pressure 114/57 02/26/17 06:00 O2 Sat by Pulse Oximetry (%) 94 L 02/26/17 03:51 Labs: CBC, BMP 02/26/17 08:00 02/26/17 08:00
[2017-02-26] MEDS ORDERED: LOSARTAN POTASSIUM 25 MG TABLET PO SCH (10:00)
[2017-02-26] MEDS ORDERED: VANCOMYCIN 1 GRAM (PRE-DOCKED) 1,000 MG/250 ML BAG IVPB SCH (10:00)
[2017-02-26] MEDS ORDERED: PATIENT'S OWN MEDICATION (NON-FORMULARY) (Linagliptin [Tradjenta] 5 MG) PO SCH (10:00)
[2017-02-26] MEDS ORDERED: INSULIN SQ SCH (10:00)
[2017-02-26] MEDS ORDERED: MEMANTINE HCL 7 MG PO SCH (10:00)
[2017-02-26 10:26] LABS: PLATELET COUNT 139 K/MM3 (134-434); PLATELET ESTIMATE DECREASED (NORMAL)
[2017-02-26] MEDS ORDERED: PIPERACILLIN/TAZOB 3.375 GM/50 ML PRE-DOCKED IVPB SCH (11:00)
--- NOTE | 2017-02-26 11:04 | PN ---
Progress Note (short form) - Note Progress Note: ID consult dictated imp/reccd fever/chills recently discharged fro [place] on 02/02 after treatment for MRSA bacteremia/ osteomyelitis (s/p resection of MT head on 10/27 of right foot) ?foot source- no other ones noted suggest vancomycin based on level zosyn f/u cultures xray foot esr/crp jesús/ckd renal sonogram fluids adjust antibiotics for JESÚS DM contact isolation for MRSA Problem List - Problems (1) Fever Code(s): R50.9 - FEVER, UNSPECIFIED Qualifiers: Fever type: unspecified Qualified Code(s): R50.9 - Fever, unspecified (2) Wound, open, foot Code(s): S91.309A - UNSPECIFIED OPEN WOUND, UNSPECIFIED FOOT, INITIAL ENCOUNTER Qualifiers: Encounter type: initial encounter Laterality: right Qualified Code( s): S91.301A - Unspecified open wound, right foot, initial encounter (3) Acute renal failure Code(s): N17.9 - ACUTE KIDNEY FAILURE, UNSPECIFIED Qualifiers: Acute renal failure type: unspecified Qualified Code(s): N17.9 - Acute kidney failure, unspecified (4) Diabetes mellitus type 2 with peripheral artery disease Code(s): E11.51 - TYPE 2 DIABETES W DIABETIC PERIPHERAL ANGIOPATH W/O GANGRENE (5) MRSA (methicillin resistant Staphylococcus aureus) Code(s): A49.02 - METHICILLIN RESIS STAPH INFECTION, UNSP SITE
--- NOTE | 2017-02-26 12:25 | CONS ---
DATE OF CONSULTATION: DATE OF DICTATION: 02/26/2017 REQUESTED BY: Hospitalist service. HISTORY OF PRESENT ILLNESS: This is a 66-year-old man, known diabetes and CKD, history of chronic foot infections. He was last in the hospital in September when he was admitted for an infected right foot wound. He underwent on October 27 resection of the 2nd, 3rd, and 4th metatarsal heads with Dr. Sanders. He was found to have MRSA bacteremia with MRSA in the right foot wound and he was ultimately discharged October 29 to the skilled nursing with a PICC line, on long-term vancomycin treatment. He was discharged on February 02 home from the skilled nursing and has been doing well at home. He has a special shoe he wears and he tries to stay off the open wound that he still has on the plantar surface of his foot. He has had no nausea, vomiting and he has had no GI complaints. He has no constipation. He has had no dysuria. Yesterday, when the same nurse came home noted he did not look that good per patient. She took his temperature. It was 101. He was noted to have shakes which he reports he intermittently has at baseline. She referred him to the emergency room where he was noted to have leukocytosis and in the ER a temperature of 100.6. He was admitted for further evaluation. He was given vancomycin and Zosyn in the emergency room. He does note in the ER that he had difficulty urinating, but currently he is able to urinate quite easily and his UA is negative. As well, he notes that overnight he has developed a small cough and feels like his throat is raspy, though he has no sore throat. PAST MEDICAL HISTORY: Notable for COPD, he is on oxygen at home, asthma, pulmonary fibrosis, sleep apnea, diabetes, coronary artery disease, status post CVA, hypertension, hyperlipidemia, gout, renal insufficiency. He has had multiple foot wounds in the past, most recently in September when he underwent surgery with resection of the metatarsal heads of the 2nd, 3rd, and 4th toes on the right foot, and he is status post MRSA bacteremia treated with long-term antibiotics at the skilled nursing. ALLERGIES: He has no known drug allergies. 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 He has stopped smoking now and he uses a combination of wheelchair and his special shoe to get around in his apartment. SURGICAL HISTORY: As well, he has had an appendectomy, cholecystectomy, tonsillectomy, he has had bypass surgery to his leg in the past, eye surgery, and a right carotid endarterectomy. FAMILY HISTORY: Notable for Alzheimer disease and prostate cancer. MEDICATIONS AT HOME: Include: 1. Colace. 2. Ferrous sulfate. 3. Lasix. 4. Gabapentin. 5. Insulin. 6. Ditropan. 7. Protonix. 8. Mirapex. 9. Augmentin. This is an incomplete medication list. REVIEW OF SYSTEMS: He denies any constipation. He denies any nausea or vomiting. Currently, he has no chills and he feels well. PHYSICAL EXAMINATION:Vital Signs: Temperature is 98.3, pulse of 70, blood pressure 129/57, respiratory rate is 18, saturating 94% on 3 L. General: He is resting quite comfortably. HEENT: He is normocephalic. Eyes are anicteric. Neck: Supple. Lungs: Clear to auscultation. Heart: Regular rate and rhythm. Abdomen: Soft, nontender. Extremities: Notable for a clean plantar ulcer on his right foot. LABORATORIES: Are notable for a white count of 17 yesterday, 12.8 today, hemoglobin 10.1, platelets of 139. BUN is 45 and creatinine is 2.4 which is significantly elevated from his discharge creatinine of 1.5. His urinalysis is negative. Blood cultures and wound culture are pending at this time. Chest x-ray was done in the emergency room and shows no clear infiltrate. ASSESSMENT: 1. In summary, this is a 66-year-old man with fever, leukocytosis, prior history of methicillin-resistant Staphylococcus aureus, osteomyelitis, and bacteremia. I would suggest that possible sources include transient bacteremia again from his foot wound which appears to be clean at this time. He received vancomycin and Zosyn in the emergency room. Would adjust his antibiotics for his acute kidney injury and follow up his results. 2. Acute on chronic kidney disease. 3. History of diabetes. Further recommendations to follow. JAGDISH EPSTEIN M.D. [id number]
[2017-02-26] MEDS ORDERED: PIPERACILLIN/TAZOBACTAM 3.375 GM VIAL IVPB ONE ×2 (12:38→17:25)
[2017-02-26] MEDS ORDERED: DEXTROSE 5%-WATER - 50 ML IVPB ONE ×2 (12:39→17:25)
[2017-02-26] MEDS: PIPERACILLIN/TAZOB 3.375 GM 3.375 GM in DEXTROSE 5%-WATER - 50 ML IVPB SCH ×2 (12:44→18:38)
[2017-02-26] MEDS: COLLAGENASE CLOSTRIDIUM HIST. 30 GRAMS TUBE TP SCH (12:45)
[2017-02-26] MEDS: SOLIFENACIN SUCCINATE 5 MG TAB (FP) PO SCH (12:45)
[2017-02-26] MEDS: FLUTICASONE/SALMETEROL 100 MCG/50 MCG DISKUS IH SCH ×2 (12:45→22:27)
[2017-02-26] MEDS: PRAMIPEXOLE DIHYDROCHLORIDE 0.5 MG TABLET PO SCH ×2 (12:46→22:29)
[2017-02-26 13:30] LABS: C-REACTIVE PROTEIN 18.7 MG/DL (0.00-0.3)
[2017-02-26] MEDS: ACLIDINIUM BROMIDE 400 MCG/INH AERO.POWD IH SCH ×2 (18:06→22:37)
[2017-02-26] MEDS: ATORVASTATIN CA 20 MG TABLET (FP) PO SCH (22:27)
[2017-02-26] MEDS: traZODone HCL 50 MG TABLET (FP) PO SCH (22:27)
[2017-02-26] MEDS: INSULIN DETEMIR 100 UNITS/ML MDV SQ SCH (22:31)
[2017-02-26] MEDS: DOCUSATE SODIUM 100 MG CAPSULE (FP) PO SCH ×2 (22:37→22:44)
[2017-02-27] MEDS ORDERED: DEXTROSE 5%-WATER - 50 ML IVPB ONE ×3 (01:14→17:00)
[2017-02-27] MEDS ORDERED: PIPERACILLIN/TAZOBACTAM 3.375 GM VIAL IVPB ONE ×3 (01:14→17:00)
[2017-02-27] MEDS: PIPERACILLIN/TAZOB 3.375 GM 3.375 GM in DEXTROSE 5%-WATER - 50 ML IVPB SCH ×3 (01:21→17:05)
[2017-02-27] MEDS: SODIUM CHLORIDE 1,000 ML IV SCH ×2 (01:21→16:57)
[2017-02-27] MEDS: ALBUTEROL SO4 2.5/IPRATROPIUM 0.5 INH SOL 3 ML VIAL.NEB. NEB PRN (01:58)
[2017-02-27] MEDS: HEPARIN NA (PORCINE) 5,000 UNITS/ML 1ML VIAL SQ SCH ×3 (06:20→22:40)
[2017-02-27] MEDS: GABAPENTIN 300 MG CAPSULE (FP) PO SCH ×3 (06:20→22:41)
[2017-02-27] MEDS: sitaGLIPtin PHOSPHATE 50 MG TABLET PO SCH (06:20)
[2017-02-27] MEDS: ERYTHROMYCIN 0.5% OPHTHALMIC OINTMENT 3.5 GM TUBE OD SCH ×3 (06:31→22:37)
[2017-02-27] MEDS: INSULIN SLIDING SCALE (NOVOLOG) 1 VIAL SQ SCH ×4 (06:31→22:42)
[2017-02-27 07:27] LABS: BASOPHIL 0.5 % (0-2.0); EOSINOPHIL 4.7 % (0-4.5); MCH 21.2 pg (25.7-33.7); MCHC 30.2 g/dl (32.0-35.9); MEAN CELL VOLUME 70.2 fl (80-96); MEAN PLT VOLUME 9.4 fl (7.5-11.1); NEUTROPHILS 74.7 % (42.8-82.8); RDW 19.4 % (11.9-15.9); WHITE BLOOD COUNT 8.3 K/mm3 (4.0-10.0)
[2017-02-27 08:02] LABS: ANION GAP 7 (8-16); CALCIUM 7.8 mg/dL (8.5-10.1); CO2 27 mmol/L (21-32); GLUCOSE,RANDOM 98 mg/dL (74-106)
[2017-02-27 08:04] LABS: CREATININE 2.2 mg/dL (0.7-1.3)
[2017-02-27] MEDS ORDERED: PT OWN MED DRAWER 7, Y5N ONE (09:52)
[2017-02-27 10:00] LABS: PLATELET COUNT 123 K/MM3 (134-434); PLATELET ESTIMATE SLT DECREASED (NORMAL)
[2017-02-27] MEDS: FLUTICASONE/SALMETEROL 100 MCG/50 MCG DISKUS IH SCH ×2 (10:01→22:36)
[2017-02-27] MEDS: TAMSULOSIN HCL 0.4 MG CAP.ER.24H (FP) PO SCH (10:02)
[2017-02-27] MEDS: PRAMIPEXOLE DIHYDROCHLORIDE 0.5 MG TABLET PO SCH ×2 (10:02→22:41)
[2017-02-27] MEDS: FERROUS SO4 325 MG TABLET (FP) PO SCH ×2 (10:02→22:37)
[2017-02-27] MEDS: METOPROLOL SUCCINATE 25 MG TAB.SR.24H (FP) PO SCH (10:03)
[2017-02-27] MEDS: COLLAGENASE CLOSTRIDIUM HIST. 30 GRAMS TUBE TP SCH (10:03)
[2017-02-27] MEDS: ACLIDINIUM BROMIDE 400 MCG/INH AERO.POWD IH SCH ×2 (10:04→22:42)
[2017-02-27] MEDS: SOLIFENACIN SUCCINATE 5 MG TAB (FP) PO SCH (10:04)
[2017-02-27] MEDS: ALLOPURINOL 300 MG TABLET (FP) PO SCH (10:05)
[2017-02-27] MEDS: PANTOPRAZOLE 40 MG TABLET (FP) PO SCH (10:06)
[2017-02-27] MEDS: CLOPIDOGREL BISULFATE 75 MG TABLET (FP) PO SCH (10:06)
[2017-02-27] MEDS: amLODIPine BESYLATE 5 MG TABLET (FP) PO SCH (10:06)
--- NOTE | 2017-02-27 11:42 | PN ---
Progress Note (short form) - Note Progress Note: continues with foot pain recent debridement by Dr Sanders end of December Vital Signs Period Temp Pulse Resp BP Sys/Cintron Pulse Ox Last 24 Hr 98.7 F-99.3 F 75-79 20-20 104-127/63-73 94 cor-rrr lungs clear abd soft,nt ext open plantar ulcer right foot CBC, BMP 02/27/17 06:00 02/27/17 06:00 Microbiology 02/26/17 01:55 Urine - Urine Clean Catch Urine Culture - Final NO GROWTH OBTAINED 02/25/17 17:31 Blood - Peripheral Venous Blood Culture - Preliminary Presumptive Mrsa (Pbp2a Pos) 02/25/17 17:31 Blood - Peripheral Venous Blood Culture - Preliminary NO GROWTH OBTAINED AFTER 24 HOURS, INCUBATION TO CONTINUE FOR 4 DAYS. 02/25/17 18:35 Foot - Right Plantar Gram Stain - Finall Laboratory Tests 02/26/17 08:00 C-Reactive Protein 18.7 H D a/p MRSA bacteremia recurrent needs repeat blood cultures will MRI foot to r/o abscess needs echo vancomycin based on levels can d/c zosyn d/w Dr Florian and Dr Sloano recently discharged from [place] on 02/02 after treatment for MRSA bacteremia/ osteomyelitis (s/p resection of MT head on 10/27 of right foot) ?foot source- no other ones noted jesús/ckd renal sonogram fluids adjust antibiotics for JESÚS DM contact isolation for MRSA Problem List - Problems (1) Fever Code(s): R50.9 - FEVER, UNSPECIFIED Qualifiers: Fever type: unspecified Qualified Code(s): R50.9 - Fever, unspecified (2) Wound, open, foot Code(s): S91.309A - UNSPECIFIED OPEN WOUND, UNSPECIFIED FOOT, INITIAL ENCOUNTER Qualifiers: Encounter type: initial encounter Laterality: right Qualified Code( s): S91.301A - Unspecified open wound, right foot, initial encounter (3) Acute renal failure Code(s): N17.9 - ACUTE KIDNEY FAILURE, UNSPECIFIED Qualifiers: Acute renal failure type: unspecified Qualified Code(s): N17.9 - Acute kidney failure, unspecified (4) Diabetes mellitus type 2 with peripheral artery disease Code(s): E11.51 - TYPE 2 DIABETES W DIABETIC PERIPHERAL ANGIOPATH W/O GANGRENE (5) MRSA (methicillin resistant Staphylococcus aureus) Code(s): A49.02 - METHICILLIN RESIS STAPH INFECTION, UNSP SITE
--- NOTE | 2017-02-27 11:48 | CONSULT ---
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 Cardio/Vascular: Yes: HTN, Hyperlipdemia, Other (PAD) Pulmonary: Yes: Asthma, COPD, O2 Dependent, Pulmonary Fibrosis, Sleep Apnea Hepatobiliary: Yes: Cholecystitis Renal/: Yes: Renal Inusuff Musculoskeletal: Yes: Other (chronic foot ulcers) Endocrine: Yes: Diabetes Mellitus - Past Surgical History Past Surgical History: Yes: Amputation (second toe left foot), Appendectomy, Bypass (leg), Carotid Endarterectomy (right), Cholecystectomy, Tonsillectomy - Alcohol/Substance Use Hx Alcohol Use: No Number of Drinks Daily: 2 (beer, cr on weekend) History of Substance Use: reports: None - Smoking History Smoking history: Former smoker Have you smoked in the past 12 months: No Aproximately how many cigarettes per day: 10 If you are a former smoker, when did you quit?: May 2014 - Social History Usual Living Arrangement: Alone ADL: Independent (uses a walker and wheelchair, in process of getting a scooter) 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 ,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 History of Recent Travel: No Home Medications - Allergies Allergies/Adverse Reactions: Allergies Allergy/AdvReac Type Severity Reaction Status Date / Time No Known Drug Allergies Allergy Verified 02/25/17 16:38 - Home Medications Home Medications: Ambulatory Orders Allopurinol 300 mg PO DAILY 05/11/16 Atorvastatin Ca [Lipitor] 20 mg PO DAILY 05/11/16 Linagliptin [Tradjenta] 5 mg PO DAILY 05/11/16 Mupirocin Ointment [Bactroban 2% Ointment -] 1 applic TP BID 05/11/16 Nystatin Powder [Nystop Powder -] 60 gm TP DAILY 05/11/16 Peg 400/Hypromellose/Glycerin [Artificial Tears Drops] 1 drop OU DAILY 05/11/16 Tamsulosin HCl [Flomax -] 0.4 mg PO DAILY 05/11/16 Trazodone HCl [Desyrel -] 50 mg PO HS 05/11/16 Erythromycin 0.5% Eye Ointment [Erythromycin 0.5% Eye Ointment -] 1 applic OD TID tube 07/19/16 Losartan Potassium [Cozaar -] 25 mg PO DAILY tablet 07/19/16 Metoprolol Succinate [Toprol XL -] 25 mg PO DAILY tab.sr.24h 07/19/16 Neomycin/Polymyx/Hc Ophth Susp [Cortisporin *Ophthalmic Suspension* -] 1 drop OD Q4HWA drops 07/19/16 Nicotine Polacrilex [Nicorelief -] 2 mg BUC Q2H PRN #0 gum 07/19/16 Oxycodone HCl [Roxicodone -] 5 mg PO Q8H PRN #30 tablet MDD 3 07/19/16 Memantine HCl [Namenda Xr] 7 mg PO DAILY 07/22/16 Aclidinium [place] [Tudorza -] 1 puff IH BID inhaler 10/29/16 Albuterol 2.5/Ipratropium 0.5 [Duoneb -] 1 amp NEB Q4H PRN #0 amp 10/29/16 Amlodipine Besylate [Norvasc -] 5 mg PO DAILY tablet 10/29/16 Clopidogrel Bisulfate [Plavix -] 75 mg PO DAILY tablet 10/29/16 Salmeterol/Fluticasone [Advair 100Mcg/50Mcg -] 1 puff IH BID inhaler 10/29/16 Docusate Sodium [Colace -] 300 mg PO HS 01/25/17 Ferrous Sulfate 325 mg PO BID 01/25/17 Furosemide [Lasix] 20 mg PO ASDIR 01/25/17 Gabapentin 300 mg PO TID 01/25/17 Insulin (Levemir) [Levemir Flexpen -] 18 units SQ BID 01/25/17 Insulin Lispro [Humalog] 7 unit SQ AC 01/25/17 Oxybutynin Chloride [Ditropan Xl] 5 mg PO DAILY 01/25/17 Pantoprazole Sodium [Protonix] 40 mg PO DAILY 01/25/17 Pramipexole Dihydrochloride [Mirapex -] 0.5 mg PO BID 01/25/17 Amox-Tr/K Cl [Augmentin - 875Mg Tablet] 1 tab PO BID #14 tablet 01/26/17 Family Disease History - Family Disease History Family Disease History: Diabetes: Mother (htn), Other: Father (htn), Mother Physical Exam Vital Signs: Vital Signs Temperature 98.9 F 02/27/17 09:00 Pulse Rate 79 02/27/17 09:00 Respiratory Rate 20 02/27/17 09:00 Blood Pressure 127/73 02/27/17 09:00 O2 Sat by Pulse Oximetry (%) 94 L 02/26/17 21:00 Labs: CBC, BMP 02/27/17 06:00 02/27/17 06:00 Assessment/Plan VAscular Surgery The patient is a 66 -year-old male, with a significant past medical history of COPD(3 L O2 at home), asthma, DM(well controlled), CAD, CVA(left sided weakness) , hypertension, hyperlipidemia, gout, renal insufficiency, and osteomyelitis, who presents to the ED with fever and pain to right foot. Pts visiting nurse came to his home today change the dressing on his right foot wound. She took the pts temperature and noted it to be 101. Pt was brought to the ED for further evaluation. On exam, pt is complaining of right foot pain. He denies any fever, chills, nausea, vomiting, diarrhea, and abdominal pain. He denies any chest pain or shortness of breath. He denies any headache. <Nena Arguelles - Last Filed: 02/25/17 18:20> <Shalini Martinez - Last Filed: 02/26/17 01:37> - General Chief Complaint: Weakness Stated Complaint: SHORTNESS OF BREATH Time Seen by Provider: 02/25/17 17:12 Past History <Nena Arguelles - Last Filed: 02/25/17 18:20> - Past Medical History Anemia: No Asthma: Yes Cancer: No Cardiac Disorders: Yes (CAD) CVA: Yes (L sided weakness) COPD: Yes (3L O2 NC AT HOME) CHF: No Dementia: No Diabetes: Yes GI Disorders: No Disorders: Yes HTN: Yes Hypercholesterolemia: Yes Liver Disease: No Suicide Attempt (Hx): No Seizures: No Thyroid Disease: No - Surgical History Abdominal Surgery: No Appendectomy: Yes Cardiac Surgery: No Cholecystectomy: Yes Lung Surgery: No Neurologic Surgery: No Orthopedic Surgery: No - Immunization History Immunization Up to Date: Yes - Psycho/Social/Smoking Cessation Hx Anxiety: No Suicidal Ideation: No Smoking Status: No Smoking History: Former smoker Have you smoked in the past 12 months: No Number of Cigarettes Smoked Daily: 10 If you are a former smoker, when did you quit?: May 2014 Information on smoking cessation initiated: No 'Breaking Loose' booklet given: 08/22/15 Hx Alcohol Use: No Drug/Substance Use Hx: No Substance Use Type: None Hx Substance Use Treatment: No PE Head - NC/AT Lung - cTA heart - RRR abd - soft,nt,nd ext - right plantar foot -- open ulcer clean, pink. no pus can be expressed. warm. A/p Right plantar foot ulcer. Came in with fevers and chills Discussed with ID -- MRI of right foot to rule out abscess. Pt has sfa stent -- which is MRI safe. Can get MRI Will follow Janusz Solano DO
--- NOTE | 2017-02-27 12:05 | PN ---
Progress Note (short form) - Note Progress Note: states he is asymptomatic. denies CP, SOB, fever, chills, N/v/C/D Current Medications Generic Name Dose Route Start Last Admin Trade Name Freq PRN Reason Stop Dose Admin Acetaminophen 650 mg 02/26/17 01:43 Tylenol - PO Q6H PRN FEVER OR PAIN Aclidinium [place] 1 puff 02/26/17 10:00 02/27/17 10:04 Tudorza - IH 1 puff BID MISSAEL Administration Albuterol/Ipratropium 1 amp 02/26/17 01:46 02/27/17 01:58 Duoneb - NEB 1 amp Q4H PRN Administration SHORTNESS OF BREATH Allopurinol 300 mg 02/26/17 10:00 02/27/17 10:05 Zyloprim - PO 300 mg DAILY MISSAEL Administration Amlodipine Besylate 5 mg 02/26/17 10:00 02/27/17 10:06 Norvasc - PO 5 mg DAILY MISSAEL Administration Artificial Tears 1 drop 02/26/17 07:20 Artificial Tears OU DAILY PRN DRY EYES Atorvastatin Calcium 20 mg 02/26/17 22:00 02/26/17 22:27 Lipitor - PO 20 mg HS MISSAEL Administration Clopidogrel Bisulfate 75 mg 02/26/17 10:00 02/27/17 10:06 Plavix - PO 75 mg DAILY MISSAEL Administration Collagenase 1 applic 02/26/17 10:00 02/27/17 10:03 Santyl - TP 1 applic DAILY MISSAEL Administration Docusate Sodium 300 mg 02/26/17 22:00 02/26/17 22:44 Colace - PO Not Given HS MISSAEL Erythromycin 1 applic 02/26/17 06:00 02/27/17 06:31 Erythromycin 0.5% Eye Ointment OD Not Given TID MISSAEL Ferrous Sulfate 325 mg 02/26/17 10:00 02/27/17 10:02 Feosol - PO 325 mg BID MISSAEL Administration Gabapentin 300 mg 02/26/17 06:00 02/27/17 06:20 Neurontin - PO 300 mg TID MISSAEL Administration Heparin Sodium (Porcine) 5,000 unit 02/26/17 06:00 02/27/17 06:20 Heparin - SQ 5,000 unit TID MISSAEL Administration Sodium Chloride 1,000 mls @ 75 mls/hr 02/26/17 01:45 02/27/17 01:21 Normal Saline - IV 75 mls/hr ASDIR MISSAEL Administration Piperacillin Sod/Tazobactam 50 mls @ 100 mls/hr 02/26/17 11:15 02/27/17 10:05 Sod 3.375 gm/ Dextrose IVPB 100 mls/hr Q8H-IV MISSAEL Administration Insulin Aspart 1 vial 02/26/17 07:00 02/27/17 11:27 Novolog Vial Sliding Scale - SQ Not Given ACHS [facility] Protocol Insulin Detemir 22 units 02/26/17 22:00 02/26/17 22:31 Levemir Vial SQ 22 units HS MISSAEL Administration Metoprolol Succinate 25 mg 02/26/17 10:00 02/27/17 10:03 Toprol Xl - PO 25 mg DAILY MISSAEL Administration Nicotine Polacrilex 2 mg 02/26/17 01:46 Nicorette Gum - BUC Q2H PRN NICOTINE REPLACEMENT RX Non-Formulary Medication 7 mg 02/26/17 10:00 Memantine Hcl [Namenda Xr] PO DAILY MISSAEL Oxycodone HCl 5 mg 02/26/17 01:43 02/26/17 09:31 Roxicodone - PO 5 mg Q4H PRN Administration PAIN Pantoprazole Sodium 40 mg 02/26/17 10:00 02/27/17 10:06 Protonix - PO 40 mg DAILY MISSAEL Administration Pramipexole Dihydrochloride 0.5 mg 02/26/17 10:00 02/27/17 10:02 Mirapex - PO 0.5 mg BID MISSAEL Administration Fluticasone/Salmeterol 1 puff 02/26/17 10:00 02/27/17 10:01 Advair 100mcg/50mcg - IH 1 puff BID MISSAEL Administration Sitagliptin Phosphate 50 mg 02/26/17 07:00 02/27/17 06:20 Januvia - PO 50 mg DAILY@0700 MISSAEL Administration Solifenacin 5 mg 02/26/17 10:00 02/27/17 10:04 Vesicare - PO 5 mg DAILY MISSAEL Administration Tamsulosin HCl 0.4 mg 02/26/17 08:30 02/27/17 10:02 Flomax - PO 0.4 mg DAILY@0830 MISSAEL Administration Trazodone HCl 50 mg 02/26/17 22:00 02/26/17 22:27 Desyrel - PO 50 mg HS MISSAEL Administration Last Vital Signs Temp Pulse Resp BP Pulse Ox 98.9 F 79 20 127/73 94 L 02/27/17 09:00 02/27/17 09:00 02/27/17 09:00 02/27/17 09:00 02/26/17 21:00 General NAD CV S1 S2 RRR no murmur/rub/gallop Lungs CTA B/l no wheezing/rales/rhonchi Abdomen soft NT/ND obese Extremities R foot with dressing on c/d/i CBCD WBC 8.3 K/mm3 (4.0-10.0) D 02/27/17 06:00 RBC 4.43 M/mm3 (4.00-5.60) 02/27/17 06:00 Hgb 9.4 GM/dL (11.7-16.9) L 02/27/17 06:00 Hct 31.1 % (35.4-49) L 02/27/17 06:00 MCV 70.2 fl (80-96) L 02/27/17 06:00 MCHC 30.2 g/dl (32.0-35.9) L 02/27/17 06:00 RDW 19.4 % (11.9-15.9) H 02/27/17 06:00 Plt Count 123 K/MM3 (134-434) L 02/27/17 06:00 MPV 9.4 fl (7.5-11.1) D 02/27/17 06:00 CMP Sodium 139 mmol/L (136-145) 02/27/17 06:00 Potassium 4.0 mmol/L (3.5-5.1) 02/27/17 06:00 Chloride 105 mmol/L (98-107) 02/27/17 06:00 Carbon Dioxide 27 mmol/L (21-32) 02/27/17 06:00 Anion Gap 7 (8-16) L 02/27/17 06:00 BUN 43 mg/dL (7-18) H 02/27/17 06:00 Creatinine 2.2 mg/dL (0.7-1.3) H 02/27/17 06:00 Creat Clearance w eGFR 24.82 (>60) 02/25/17 17:31 Calcium 7.8 mg/dL (8.5-10.1) L 02/27/17 06:00 Total Bilirubin 0.5 mg/dL (0.2-1.0) D 02/25/17 17:31 AST 36 U/L (15-37) D 02/25/17 17:31 ALT 20 U/L (12-78) D 02/25/17 17:31 Alkaline Phosphatase 117 U/L (45-117) 02/25/17 17:31 Total Protein 7.0 g/dl (6.4-8.2) 02/25/17 17:31 Albumin 2.7 g/dl (3.4-5.0) L 02/25/17 17:31 Microbiology 02/25/17 18:35 Gram Stain - Final Foot - Right Plantar Wound Culture - Preliminary Presumptive Mrsa (Pbp2a Pos) Lactose Fermenting Neg Bacilli Pseudomonas Species 02/26/17 01:55 Urine Culture - Final Urine - Urine Clean Catch NO GROWTH OBTAINED 02/25/17 17:31 Blood Culture - Preliminary Blood - Peripheral Venous Presumptive Mrsa (Pbp2a Pos) 02/25/17 17:31 Blood Culture - Preliminary Blood - Peripheral Venous NO GROWTH OBTAINED AFTER 24 HOURS, INCUBATION TO CONTINUE FOR 4 DAYS. 65 year old male with a past medical history of COPD-oxygen depending, asthma, SAMMY, DM, GI bleed, CAD, CVA (left sided weakness), HTN, HLD, and gout. Treated earlier this year for OM with MRSA bacteremia presented with fever 1. Sepsis due to MRSA bacteremia and MRSA infection- afebrile. ESR elevated. agree with MRA to further evaluate for abscess and see for bone involvement. check vanco level and dose vanco accordingly. day 3. on Zosyn. will check echo tomorrow to r/o endocarditis. repeat BCX tomorrow. ID and vasc surgery on board. f/u official cx 2. Acute on CKD- likely duet to sepsis. continues to improve. refuses morales. check renal u/s to evaluate for obstruction. cont IVF. avoid nephrotoxic agents 3. DM- cont home medications, ISS, levemir, BGM. diabetic diet 4. Microcytic anemia- no signs of acute blood loss. possible dilutional component. monitor as has hx GI bleed. check iron panel. no indication 5. COPD- cont home oxygen. nebs prn. no signs of COPD exacerbation 6. HTN- cont norvasc and metoprolol. lasix and cozaar on hold 7. PVD- s/p SFA stent. on plavix 8. DVTppx- hep sq Visit type - Emergency Visit Emergency Visit: Yes ED Registration Date: 02/26/17 Care time: The patient presented to the Emergency Department on the above date and was hospitalized for further evaluation of their emergent condition. - New Patient This patient is new to me today: No - Critical Care Critical Care patient: No - Discharge Referral Referred to [facility] No
[2017-02-27] MEDS ORDERED: VANCOMYCIN 1 GRAM (PRE-DOCKED) 250 ML IVPB ONE (13:15)
[2017-02-27] MEDS ORDERED: INSULIN (NOVOLOG) ASPART 100 UNITS/ML 10ML VIAL ONE ×2 (16:59→20:20)
[2017-02-27] MEDS: oxyCODONE HCL 5 MG TABLET PO PRN (20:25)
[2017-02-27] MEDS: DOCUSATE SODIUM 100 MG CAPSULE (FP) PO SCH (22:36)
[2017-02-27] MEDS: traZODone HCL 50 MG TABLET (FP) PO SCH (22:37)
[2017-02-27] MEDS: ATORVASTATIN CA 20 MG TABLET (FP) PO SCH (22:41)
[2017-02-27] MEDS: INSULIN DETEMIR 100 UNITS/ML MDV SQ SCH (22:43)
[2017-02-28] MEDS ORDERED: PIPERACILLIN/TAZOBACTAM 3.375 GM VIAL IVPB ONE ×3 (00:52→17:52)
[2017-02-28] MEDS ORDERED: DEXTROSE 5%-WATER - 50 ML IVPB ONE ×2 (00:52→09:04)
[2017-02-28] MEDS: PIPERACILLIN/TAZOB 3.375 GM 3.375 GM in DEXTROSE 5%-WATER - 50 ML IVPB SCH ×3 (01:21→17:57)
[2017-02-28] MEDS: SODIUM CHLORIDE 1,000 ML IV SCH ×2 (01:55→06:21)
[2017-02-28] MEDS: HEPARIN NA (PORCINE) 5,000 UNITS/ML 1ML VIAL SQ SCH ×3 (06:17→22:48)
[2017-02-28] MEDS: ERYTHROMYCIN 0.5% OPHTHALMIC OINTMENT 3.5 GM TUBE OD SCH ×3 (06:17→22:47)
[2017-02-28] MEDS: GABAPENTIN 300 MG CAPSULE (FP) PO SCH ×3 (06:18→22:48)
[2017-02-28] MEDS: sitaGLIPtin PHOSPHATE 50 MG TABLET PO SCH (06:20)
[2017-02-28] MEDS: INSULIN SLIDING SCALE (NOVOLOG) 1 VIAL SQ SCH ×4 (06:20→22:51)
[2017-02-28 08:09] LABS: MCH 21.6 pg (25.7-33.7); MCHC 30.9 g/dl (32.0-35.9); MEAN CELL VOLUME 69.9 fl (80-96); MEAN PLT VOLUME 10.1 fl (7.5-11.1); RDW 19.3 % (11.9-15.9); WHITE BLOOD COUNT 5.5 K/mm3 (4.0-10.0)
[2017-02-28 08:39] LABS: ANION GAP 7 (8-16); CALCIUM 8.1 mg/dL (8.5-10.1); CO2 23 mmol/L (21-32); CREATININE 1.8 mg/dL (0.7-1.3); GLUCOSE,RANDOM 138 mg/dL (74-106)
[2017-02-28 08:40] LABS: FERRITIN 269.822 ng/ml (16.4-293.9)
[2017-02-28] MEDS: oxyCODONE HCL 5 MG TABLET PO PRN ×2 (09:25→22:51)
[2017-02-28] MEDS: FERROUS SO4 325 MG TABLET (FP) PO SCH ×2 (09:26→22:48)
[2017-02-28] MEDS: CLOPIDOGREL BISULFATE 75 MG TABLET (FP) PO SCH (09:26)
[2017-02-28] MEDS: METOPROLOL SUCCINATE 25 MG TAB.SR.24H (FP) PO SCH (09:26)
[2017-02-28] MEDS: amLODIPine BESYLATE 5 MG TABLET (FP) PO SCH (09:26)
[2017-02-28] MEDS: TAMSULOSIN HCL 0.4 MG CAP.ER.24H (FP) PO SCH (09:26)
[2017-02-28] MEDS: PANTOPRAZOLE 40 MG TABLET (FP) PO SCH (09:26)
[2017-02-28] MEDS: ALLOPURINOL 300 MG TABLET (FP) PO SCH (09:26)
[2017-02-28 09:29] LABS: PLATELET COUNT 142 K/MM3 (134-434); PLATELET ESTIMATE SLT DECREASED (NORMAL)
--- NOTE | 2017-02-28 09:50 | EKG ---
Test Reason : Blood Pressure : / mmHG Vent. Rate : 076 BPM Atrial Rate : 076 BPM P-R Int : 206 ms QRS Dur : 076 ms QT Int : 388 ms P-R-T Axes : 042 117 050 degrees QTc Int : 436 ms NORMAL SINUS RHYTHM LEFT POSTERIOR FASCICULAR BLOCK CANNOT RULE OUT INFERIOR INFARCT , AGE UNDETERMINED ABNORMAL ECG WHEN COMPARED WITH ECG OF 22-OCT-2016 17:16, T WAVE VARIATION Confirmed by KEVON BANEGAS, SHAY ([id number]) on 02/28/2017 9:50:45 AM Referred By: Confirmed By:SHAY LUND MD
[2017-02-28] MEDS: PRAMIPEXOLE DIHYDROCHLORIDE 0.5 MG TABLET PO SCH ×2 (10:06→22:50)
[2017-02-28] MEDS: ACETAMINOPHEN 325 MG TABLET (FP) PO PRN (10:06)
[2017-02-28] MEDS: SOLIFENACIN SUCCINATE 5 MG TAB (FP) PO SCH (10:07)
--- NOTE | 2017-02-28 11:18 | PN ---
Progress Note, Physician Chief Complaint: ID Vancomycin & Zosyn - Current Medication List Current Medications: Active Medications Acetaminophen (Tylenol -) 650 mg PO Q6H PRN PRN Reason: FEVER OR PAIN Last Admin: 02/28/17 10:06 Dose: 650 mg Aclidinium [place] (Tudorza -) 1 puff IH BID [facility] Last Admin: 02/27/17 22:42 Dose: 1 puff Albuterol/Ipratropium (Duoneb -) 1 amp NEB Q4H PRN PRN Reason: SHORTNESS OF BREATH Last Admin: 02/27/17 01:58 Dose: 1 amp Allopurinol (Zyloprim -) 300 mg PO DAILY [facility] Last Admin: 02/28/17 09:26 Dose: 300 mg Amlodipine Besylate (Norvasc -) 5 mg PO DAILY [facility] Last Admin: 02/28/17 09:26 Dose: 5 mg Artificial Tears (Artificial Tears) 1 drop OU DAILY PRN PRN Reason: DRY EYES Atorvastatin Calcium (Lipitor -) 20 mg PO [facility] Last Admin: 02/27/17 22:41 Dose: 20 mg Clopidogrel Bisulfate (Plavix -) 75 mg PO DAILY [facility] Last Admin: 02/28/17 09:26 Dose: 75 mg Collagenase (Santyl -) 1 applic TP DAILY [facility] Last Admin: 02/27/17 10:03 Dose: 1 applic Docusate Sodium (Colace -) 300 mg PO HS [facility] Last Admin: 02/27/17 22:36 Dose: 300 mg Erythromycin (Erythromycin 0.5% Eye Ointment) 1 applic OD TID [facility] Last Admin: 02/28/17 06:17 Dose: Not Given Ferrous Sulfate (Feosol -) 325 mg PO BID [facility] Last Admin: 02/28/17 09:26 Dose: 325 mg Gabapentin (Neurontin -) 300 mg PO TID [facility] Last Admin: 02/28/17 06:18 Dose: 300 mg Heparin Sodium (Porcine) (Heparin -) 5,000 unit SQ TID [facility] Last Admin: 02/28/17 06:17 Dose: 5,000 unit Sodium Chloride (Normal Saline -) 1,000 mls @ 75 mls/hr IV ASDIR [facility] Last Admin: 02/28/17 06:21 Dose: 75 mls/hr Piperacillin Sod/Tazobactam (Sod 3.375 gm/ Dextrose) 50 mls @ 100 mls/hr IVPB Q8H-IV [facility] Last Admin: 02/28/17 09:26 Dose: 100 mls/hr Insulin Aspart (Novolog Vial Sliding Scale -) 1 vial SQ ACHS [facility] PRN Reason: Protocol Last Admin: 02/28/17 06:20 Dose: Not Given Insulin Detemir (Levemir Vial) 22 units SQ HS [facility] Last Admin: 02/27/17 22:43 Dose: 22 units Metoprolol Succinate (Toprol Xl -) 25 mg PO DAILY [facility] Last Admin: 02/28/17 09:26 Dose: 25 mg Nicotine Polacrilex (Nicorette Gum -) 2 mg BUC Q2H PRN PRN Reason: NICOTINE REPLACEMENT RX Non-Formulary Medication (Memantine Hcl [Namenda Xr]) 7 mg PO DAILY [facility] Oxycodone HCl (Roxicodone -) 5 mg PO Q4H PRN PRN Reason: PAIN Last Admin: 02/28/17 09:25 Dose: 5 mg Pantoprazole Sodium (Protonix -) 40 mg PO DAILY [facility] Last Admin: 02/28/17 09:26 Dose: 40 mg Pramipexole Dihydrochloride (Mirapex -) 0.5 mg PO BID [facility] Last Admin: 02/28/17 10:06 Dose: 0.5 mg Fluticasone/Salmeterol (Advair 100mcg/50mcg -) 1 puff IH BID [facility] Last Admin: 02/27/17 22:36 Dose: 1 puff Sitagliptin Phosphate (Januvia -) 50 mg PO DAILY@0700 [facility] Last Admin: 02/28/17 06:20 Dose: 50 mg Solifenacin (Vesicare -) 5 mg PO DAILY [facility] Last Admin: 02/28/17 10:07 Dose: 5 mg Tamsulosin HCl (Flomax -) 0.4 mg PO DAILY@0830 [facility] Last Admin: 02/28/17 09:26 Dose: 0.4 mg Trazodone HCl (Desyrel -) 50 mg PO [facility] Last Admin: 02/27/17 22:37 Dose: 50 mg - Objective Vital Signs: Vital Signs Temperature 98.2 F 02/28/17 06:26 Pulse Rate 80 02/28/17 06:26 Respiratory Rate 20 02/28/17 06:26 Blood Pressure 129/63 02/28/17 06:26 O2 Sat by Pulse Oximetry (%) 94 L 02/27/17 20:33 Labs: CBC, BMP 02/28/17 06:40 02/28/17 06:40 INR, PTT INR 1.48 (0.82-1.09) H 02/25/17 17:31 Assessment/Plan Microbiology 02/25/17 18:35 Foot - Right Plantar Gram Stain - Final 02/25/17 18:35 Foot - Right Plantar Wound Culture - Preliminary Presumptive Mrsa (Pbp2a Pos) Klebsiella Pneumoniae Pseudomonas Species 02/25/17 17:31 Blood - Peripheral Venous Blood Culture - Preliminary Presumptive Mrsa (Pbp2a Pos) Laboratory Tests 02/28/17 02/28/17 02/28/17 06:40 06:40 06:40 WBC 5.5 D Hgb 9.5 L Hct 30.6 L Plt Count 142 BUN 26 H D Creatinine 1.8 H Random Vancomycin 16.803 Assessment MRSA bacteremia with plantar ulcer ( MRSA mixed josef? but no pus) Rule out osteomyelitis / Endocarditis Plan Blood cultures ESR CRP MRI of foot ECHO HOld Vanco today 500mg gram tomorrow/ daily and then follow trough 3rd dose Emmanuel BANEGAS
[2017-02-28 12:04] LABS: C-REACTIVE PROTEIN 9.9 MG/DL (0.00-0.3)
--- NOTE | 2017-02-28 13:30 | PN ---
Teaching Attending Note Name of Resident: Miguelito Ray ATTENDING PHYSICIAN STATEMENT I saw and evaluated the patient. I reviewed the resident's note and discussed the case with the resident. I agree with the resident's findings and plan as documented. SUBJECTIVE:states pain is not controlled in his foot. denies CP, SOB, fever, chills, N/V/C/D OBJECTIVE: Last Vital Signs Temp Pulse Resp BP Pulse Ox 98.2 F 80 20 129/63 94 L 02/28/17 06:26 02/28/17 06:26 02/28/17 06:26 02/28/17 06:26 02/27/17 20:33 General NAD Extremities R foot wrapped in dressing with drainage noted on the bottom ASSESSMENT AND PLAN: 65 year old male with a past medical history of COPD-oxygen depending, asthma, SAMMY, DM, GI bleed, CAD, CVA (left sided weakness), HTN, HLD, and gout. Treated earlier this year for OM with MRSA bacteremia presented with fever 1. Sepsis due to MRSA bacteremia and MRSA infection- afebrile. ESR elevated. awaiting MRI to further evaluate for abscess and/or see for bone involvement. echo pending. Repeat Bcx sent this Am. cont Vanco/zosyn day 3. vanco based on vanco level. ID and vasc surgery on board. f/u official cx 2. Acute on CKD- likely due to sepsis. continues to improve. renal u/s negative for acute pathology. cont IVF. avoid nephrotoxic agents 3. DM- cont home medications, ISS, levemir, BGM. diabetic diet 4. Microcytic anemia- no signs of acute blood loss. possible dilutional component. monitor as has hx GI bleed. iron panel pending. no indication for txn 5. COPD- cont home oxygen. nebs prn. no signs of COPD exacerbation 6. HTN- cont norvasc and metoprolol. lasix and cozaar on hold 7. PVD- s/p SFA stent. on plavix 8. DVTppx- hep sq
[2017-02-28] MEDS ORDERED: INSULIN (NOVOLOG) ASPART 100 UNITS/ML 10ML VIAL ONE (13:46)
[2017-02-28] MEDS: FLUTICASONE/SALMETEROL 100 MCG/50 MCG DISKUS IH SCH ×2 (13:52→22:46)
[2017-02-28] MEDS: ACLIDINIUM BROMIDE 400 MCG/INH AERO.POWD IH SCH ×2 (13:52→22:51)
[2017-02-28] MEDS: COLLAGENASE CLOSTRIDIUM HIST. 30 GRAMS TUBE TP SCH (13:52)
--- NOTE | 2017-02-28 16:15 | PN ---
Physical Exam: SUBJECTIVE: Patient seen and examined Pain not controlled well in foot. OBJECTIVE: Vital Signs Period Temp Pulse Resp BP Sys/Cintron Pulse Ox Last 24 Hr 98.2 F-99.2 F 68-80 18-20 118-145/63-87 94-95 GENERAL: Awake, alert, and fully oriented, in no acute distress. HEAD: Normal with no signs of trauma. EYES: Pupils equal, round and reactive to light, extraocular movements intact, sclera anicteric, conjunctiva clear. No lid lag. EARS, NOSE, THROAT: Ears normal, nares patent, oropharynx clear without exudates. Moist mucous membranes. NECK: Normal range of motion, supple without lymphadenopathy, JVD, or masses. LUNGS: Breath sounds equal, clear to auscultation bilaterally. No wheezes, and no crackles. No accessory muscle use. HEART: Regular rate and rhythm, normal S1 and S2 without murmur, rub or gallop. ABDOMEN: Soft, nontender, not distended, normoactive bowel sounds, no guarding, no rebound, no masses. No hepatomegaly or splenomegaly. MUSCULOSKELETAL: Normal range of motion at all joints. No bony deformities or tenderness. No CVA tenderness. left foot 2nd toe amputation UPPER EXTREMITIES: 2+ pulses, warm, well-perfused. No cyanosis. No clubbing. No peripheral edema. LOWER EXTREMITIES:Right foot wrapped in dressing. + drainage at bottom of foot. PSYCHIATRIC: Cooperative. Good eye contact. Appropriate mood and affect. SKIN: Warm, dry, normal turgor, no rashes or lesions noted, normal capillary refill. Laboratory Results - last 24 hr 02/27/17 02/27/17 02/28/17 16:55 22:35 06:19 WBC RBC Hgb Hct MCV MCH MCHC RDW Plt Count MPV Platelet Estimate Platelet Comment Sodium Potassium Chloride Carbon Dioxide Anion Gap BUN Creatinine POC Glucometer 164 142 149 Random Glucose Calcium Ferritin C-Reactive Protein Random Vancomycin 02/28/17 02/28/17 02/28/17 06:40 06:40 06:40 WBC 5.5 D RBC 4.38 Hgb 9.5 L Hct 30.6 L MCV 69.9 L MCH 21.6 L MCHC 30.9 L RDW 19.3 H Plt Count 142 MPV 10.1 Platelet Estimate Slt decreased Platelet Comment No clumping noted Sodium 136 Potassium 4.3 Chloride 106 Carbon Dioxide 23 Anion Gap 7 L BUN 26 H D Creatinine 1.8 H POC Glucometer Random Glucose 138 H D Calcium 8.1 L Ferritin 269.822 C-Reactive Protein 9.9 H D Random Vancomycin 16.803 02/28/17 02/28/17 11:00 11:48 WBC RBC Hgb Hct MCV MCH MCHC RDW Plt Count MPV Platelet Estimate Platelet Comment Sodium Potassium Chloride Carbon Dioxide Anion Gap BUN Creatinine POC Glucometer 175 Random Glucose Calcium Ferritin C-Reactive Protein Cancelled Random Vancomycin Active Medications Generic Name Dose Route Start Last Admin Trade Name Freq PRN Reason Stop Dose Admin Acetaminophen 650 mg 02/26/17 01:43 02/28/17 10:06 Tylenol - PO 650 mg Q6H PRN Administration FEVER OR PAIN Aclidinium [place] 1 puff 02/26/17 10:00 02/28/17 13:52 Tudorza - IH 1 puff BID [facility] Administration Albuterol/Ipratropium 1 amp 02/26/17 01:46 02/27/17 01:58 Duoneb - NEB 1 amp Q4H PRN Administration SHORTNESS OF BREATH Allopurinol 300 mg 02/26/17 10:00 02/28/17 09:26 Zyloprim - PO 300 mg DAILY [facility] Administration Amlodipine Besylate 5 mg 02/26/17 10:00 02/28/17 09:26 Norvasc - PO 5 mg DAILY [facility] Administration Artificial Tears 1 drop 02/26/17 07:20 Artificial Tears OU DAILY PRN DRY EYES Atorvastatin Calcium 20 mg 02/26/17 22:00 02/27/17 22:41 Lipitor - PO 20 mg HS [facility] Administration Clopidogrel Bisulfate 75 mg 02/26/17 10:00 02/28/17 09:26 Plavix - PO 75 mg DAILY [facility] Administration Collagenase 1 applic 02/26/17 10:00 02/28/17 13:52 Santyl - TP 1 applic DAILY [facility] Administration Docusate Sodium 300 mg 02/26/17 22:00 02/27/17 22:36 Colace - PO 300 mg HS [facility] Administration Erythromycin 1 applic 02/26/17 06:00 02/28/17 13:53 Erythromycin 0.5% Eye Ointment OD Not Given TID [facility] Ferrous Sulfate 325 mg 02/26/17 10:00 02/28/17 09:26 Feosol - PO 325 mg BID [facility] Administration Gabapentin 300 mg 02/26/17 06:00 02/28/17 13:54 Neurontin - PO 300 mg TID [facility] Administration Heparin Sodium (Porcine) 5,000 unit 02/26/17 06:00 02/28/17 13:53 Heparin - SQ 5,000 unit TID [facility] Administration Sodium Chloride 1,000 mls @ 75 mls/hr 02/26/17 01:45 02/28/17 06:21 Normal Saline - IV 75 mls/hr ASDIR [facility] Administration Piperacillin Sod/Tazobactam 50 mls @ 100 mls/hr 02/26/17 11:15 02/28/17 09:26 Sod 3.375 gm/ Dextrose IVPB 100 mls/hr Q8H-IV [facility] Administration Insulin Aspart 1 vial 02/26/17 07:00 02/28/17 13:53 Novolog Vial Sliding Scale - SQ 2 unit ACHS [facility] Administration Protocol Insulin Detemir 22 units 02/26/17 22:00 02/27/17 22:43 Levemir Vial SQ 22 units HS [facility] Administration Metoprolol Succinate 25 mg 02/26/17 10:00 02/28/17 09:26 Toprol Xl - PO 25 mg DAILY [facility] Administration Nicotine Polacrilex 2 mg 02/26/17 01:46 Nicorette Gum - BUC Q2H PRN NICOTINE REPLACEMENT RX Non-Formulary Medication 7 mg 02/26/17 10:00 Memantine Hcl [Namenda Xr] PO DAILY [facility] Oxycodone HCl 5 mg 02/26/17 01:43 02/28/17 09:25 Roxicodone - PO 5 mg Q4H PRN Administration PAIN Pantoprazole Sodium 40 mg 02/26/17 10:00 02/28/17 09:26 Protonix - PO 40 mg DAILY [facility] Administration Pramipexole Dihydrochloride 0.5 mg 02/26/17 10:00 02/28/17 10:06 Mirapex - PO 0.5 mg BID [facility] Administration Fluticasone/Salmeterol 1 puff 02/26/17 10:00 02/28/17 13:52 Advair 100mcg/50mcg - IH 1 puff BID [facility] Administration Sitagliptin Phosphate 50 mg 02/26/17 07:00 02/28/17 06:20 Januvia - PO 50 mg DAILY@0700 [facility] Administration Solifenacin 5 mg 02/26/17 10:00 02/28/17 10:07 Vesicare - PO 5 mg DAILY [facility] Administration Tamsulosin HCl 0.4 mg 02/26/17 08:30 02/28/17 09:26 Flomax - PO 0.4 mg DAILY@0830 [facility] Administration Trazodone HCl 50 mg 02/26/17 22:00 02/27/17 22:37 Desyrel - PO 50 mg HS [facility] Administration ASSESSMENT/PLAN: 66yM with PMH COPD, O2 dependent, asthma, sleep apnea, pulmonary fibrosis, CAD, CVA, HTN, HLD, GI bleed, DM with PVD, CKD & neuropathy, chronic R foot wound presented to the ED with fever and pain in right foot. #Sepsis secondary to MRSA bacteremia and MRSA foot infection -Patient has been afebrile -Echo- unremarkable for any vegetations -MRI of foot pending to r/o OM or abscess -Repeat BCx sent -Day 3 of Zosyn, Vancomycin held today and will be dosed to 500 mg tomorrow per ID -Vascular surgery/ID on board #JESÚS on CKD, secondary to sepsis -Cr improved to 1.8 -renal U/s negative -IVF -Avoid nephrotoxic agents #DM -BGM -ISS -Levemir 22 units #COPD -On home O2 3L -Continue Aclidinium bromide 1 puff BID -Continue advair 1 puff #FEN/GI -IVF 75 cc/hr -electrolytes wnl -Diabetic diet #PPx -DVT: Heparin 5000 units sq TID -GI: protonix 40 mg by mouth daily Visit type - Emergency Visit Emergency Visit: No - New Patient This patient is new to me today: Yes Date on this admission: 02/28/17 - Critical Care Critical Care patient: No
[2017-02-28] MEDS: traZODone HCL 50 MG TABLET (FP) PO SCH (22:47)
[2017-02-28] MEDS: DOCUSATE SODIUM 100 MG CAPSULE (FP) PO SCH (22:47)
[2017-02-28] MEDS: ATORVASTATIN CA 20 MG TABLET (FP) PO SCH (22:48)
[2017-02-28] MEDS: INSULIN DETEMIR 100 UNITS/ML MDV SQ SCH (22:49)
[2017-02-28] MEDS: ALBUTEROL SO4 2.5/IPRATROPIUM 0.5 INH SOL 3 ML VIAL.NEB. NEB PRN (23:36)
[2017-03-01] MEDS ORDERED: PIPERACILLIN/TAZOBACTAM 3.375 GM VIAL IVPB ONE ×4 (00:59→23:45)
[2017-03-01] MEDS ORDERED: DEXTROSE 5%-WATER - 50 ML IVPB ONE ×4 (00:59→23:46)
[2017-03-01] MEDS: PIPERACILLIN/TAZOB 3.375 GM 3.375 GM in DEXTROSE 5%-WATER - 50 ML IVPB SCH ×3 (01:15→17:37)
[2017-03-01] MEDS: SODIUM CHLORIDE 1,000 ML IV SCH ×2 (03:32→19:20)
[2017-03-01 06:06] LABS: SERUM IRON 25 ug/dL (38-169); TOTAL IRON BINDING CAPACITY 251 ug/dL (250-450); UIBC 226 ug/dL (111-343)
[2017-03-01] MEDS: ERYTHROMYCIN 0.5% OPHTHALMIC OINTMENT 3.5 GM TUBE OD SCH ×3 (06:10→21:52)
[2017-03-01] MEDS: INSULIN SLIDING SCALE (NOVOLOG) 1 VIAL SQ SCH ×4 (06:10→21:48)
[2017-03-01] MEDS: HEPARIN NA (PORCINE) 5,000 UNITS/ML 1ML VIAL SQ SCH (06:21)
[2017-03-01] MEDS: sitaGLIPtin PHOSPHATE 50 MG TABLET PO SCH (06:22)
[2017-03-01] MEDS: GABAPENTIN 300 MG CAPSULE (FP) PO SCH ×3 (06:22→21:46)
[2017-03-01 07:45] LABS: BASOPHIL 0.8 % (0-2.0); EOSINOPHIL 6.8 % (0-4.5); MCH 21.7 pg (25.7-33.7); MCHC 30.8 g/dl (32.0-35.9); MEAN CELL VOLUME 70.6 fl (80-96); MEAN PLT VOLUME 9.4 fl (7.5-11.1); NEUTROPHILS 63.3 % (42.8-82.8); RDW 18.6 % (11.9-15.9); WHITE BLOOD COUNT 5.7 K/mm3 (4.0-10.0)
[2017-03-01] MEDS ORDERED: VANCOMYCIN 500 MG/100 ML PRE-DOCKED IVPB ONE (08:05)
[2017-03-01 08:08] LABS: ANION GAP 6 (8-16); CALCIUM 8.7 mg/dL (8.5-10.1); CO2 26 mmol/L (21-32); CREATININE 1.4 mg/dL (0.7-1.3); GLUCOSE,RANDOM 103 mg/dL (74-106)
[2017-03-01] MEDS ORDERED: PT OWN MED DRAWER 7, Y5N ONE ×3 (08:36→22:48)
[2017-03-01] MEDS ORDERED: VANCOMYCIN 500 MG in DEXTROSE 5%-WATER - 100 ML IVPB ONE (09:00)
[2017-03-01] MEDS: PANTOPRAZOLE 40 MG TABLET (FP) PO SCH (09:21)
[2017-03-01] MEDS: ALLOPURINOL 300 MG TABLET (FP) PO SCH (09:21)
[2017-03-01] MEDS: oxyCODONE HCL 5 MG TABLET PO PRN (09:21)
[2017-03-01] MEDS: METOPROLOL SUCCINATE 25 MG TAB.SR.24H (FP) PO SCH (09:21)
[2017-03-01] MEDS: TAMSULOSIN HCL 0.4 MG CAP.ER.24H (FP) PO SCH (09:21)
[2017-03-01] MEDS: SOLIFENACIN SUCCINATE 5 MG TAB (FP) PO SCH (09:22)
[2017-03-01] MEDS: CLOPIDOGREL BISULFATE 75 MG TABLET (FP) PO SCH (09:22)
[2017-03-01] MEDS: amLODIPine BESYLATE 5 MG TABLET (FP) PO SCH (09:22)
[2017-03-01] MEDS: PRAMIPEXOLE DIHYDROCHLORIDE 0.5 MG TABLET PO SCH ×2 (09:22→21:48)
[2017-03-01] MEDS: ACLIDINIUM BROMIDE 400 MCG/INH AERO.POWD IH SCH ×2 (09:23→21:49)
[2017-03-01] MEDS: FERROUS SO4 325 MG TABLET (FP) PO SCH ×2 (09:23→21:45)
[2017-03-01] MEDS: FLUTICASONE/SALMETEROL 100 MCG/50 MCG DISKUS IH SCH ×2 (09:23→21:46)
[2017-03-01] MEDS: COLLAGENASE CLOSTRIDIUM HIST. 30 GRAMS TUBE TP SCH (09:24)
[2017-03-01] MEDS: ALBUTEROL SO4 2.5/IPRATROPIUM 0.5 INH SOL 3 ML VIAL.NEB. NEB PRN (11:15)
[2017-03-01 12:35] LABS: PLATELET COUNT 145 K/MM3 (134-434); PLATELET ESTIMATE ADEQUATE (NORMAL)
--- NOTE | 2017-03-01 12:48 | PN ---
Progress Note (short form) - Note Progress Note: Vascular Surgery MRI reviewed. Pt seen and examined. Dressing changed. will do debridment adriana to make sure there is no abscess under the metatarsal head. NPO past midnite Janusz Solano DO
--- NOTE | 2017-03-01 12:59 | PN ---
Progress Note (short form) - Note Progress Note: continues with foot pain Vital Signs Period Temp Pulse Resp BP Sys/Cintron Pulse Ox Last 24 Hr 98.2 F-98.8 F 71-93 18-20 141-156/76-95 95-97 cor-rrr lungs clear abd soft,nt ext plantar ulcer noted no drainage, edges are shaggy CBC, BMP 03/01/17 06:00 03/01/17 06:00 Microbiology 02/28/17 06:40 Blood - Peripheral Venous Blood Culture - Preliminary NO GROWTH OBTAINED AFTER 24 HOURS, INCUBATION TO CONTINUE FOR 4 DAYS. 02/28/17 06:40 Blood - Peripheral Venous Blood Culture - Preliminary NO GROWTH OBTAINED AFTER 24 HOURS, INCUBATION TO CONTINUE FOR 4 DAYS. 02/25/17 17:31 Blood - Peripheral Venous Blood Culture - Preliminary NO GROWTH OBTAINED AFTER 72 HOURS, INCUBATION TO CONTINUE FOR 2 DAYS. 02/25/17 17:31 Blood - Peripheral Venous Blood Culture - Final S Aureus 02/25/17 18:35 Foot - Right Plantar Gram Stain - Final 02/25/17 18:35 Foot - Right Plantar Wound Culture - Preliminary S Aureus Klebsiella Pneumoniae Pseudomonas Species 02/26/17 01:55 Urine - Urine Clean Catch Urine Culture - Final NO GROWTH OBTAINED MRI foot- osteo, ?abscess echo- no vegetation Active Medications Acetaminophen (Tylenol -) 650 mg PO Q6H PRN PRN Reason: FEVER OR PAIN Last Admin: 02/28/17 10:06 Dose: 650 mg Aclidinium [place] (Tudorza -) 1 puff IH BID [facility] Last Admin: 03/01/17 09:23 Dose: 1 puff Albuterol/Ipratropium (Duoneb -) 1 amp NEB Q4H PRN PRN Reason: SHORTNESS OF BREATH Last Admin: 03/01/17 11:15 Dose: 1 amp Allopurinol (Zyloprim -) 300 mg PO DAILY [facility] Last Admin: 03/01/17 09:21 Dose: 300 mg Amlodipine Besylate (Norvasc -) 5 mg PO DAILY [facility] Last Admin: 03/01/17 09:22 Dose: 5 mg Artificial Tears (Artificial Tears) 1 drop OU DAILY PRN PRN Reason: DRY EYES Atorvastatin Calcium (Lipitor -) 20 mg PO [facility] Last Admin: 02/28/17 22:48 Dose: 20 mg Clopidogrel Bisulfate (Plavix -) 75 mg PO DAILY [facility] Last Admin: 03/01/17 09:22 Dose: 75 mg Collagenase (Santyl -) 1 applic TP DAILY [facility] Last Admin: 03/01/17 09:24 Dose: 1 applic Docusate Sodium (Colace -) 300 mg PO HS [facility] Last Admin: 02/28/17 22:47 Dose: Not Given Erythromycin (Erythromycin 0.5% Eye Ointment) 1 applic OD TID [facility] Last Admin: 03/01/17 06:10 Dose: Not Given Ferrous Sulfate (Feosol -) 325 mg PO BID [facility] Last Admin: 03/01/17 09:23 Dose: 325 mg Gabapentin (Neurontin -) 300 mg PO TID [facility] Last Admin: 03/01/17 06:22 Dose: 300 mg Heparin Sodium (Porcine) (Heparin -) 5,000 unit SQ TID [facility] Last Admin: 03/01/17 06:21 Dose: 5,000 unit Sodium Chloride (Normal Saline -) 1,000 mls @ 75 mls/hr IV ASDIR [facility] Last Admin: 03/01/17 03:32 Dose: 75 mls/hr Piperacillin Sod/Tazobactam (Sod 3.375 gm/ Dextrose) 50 mls @ 100 mls/hr IVPB Q8H-IV [facility] Last Admin: 03/01/17 09:16 Dose: 100 mls/hr Insulin Aspart (Novolog Vial Sliding Scale -) 1 vial SQ ACHS [facility] PRN Reason: Protocol Last Admin: 03/01/17 12:23 Dose: Not Given Insulin Detemir (Levemir Vial) 22 units SQ HS [facility] Last Admin: 02/28/17 22:49 Dose: 22 units Metoprolol Succinate (Toprol Xl -) 25 mg PO DAILY [facility] Last Admin: 03/01/17 09:21 Dose: 25 mg Nicotine Polacrilex (Nicorette Gum -) 2 mg BUC Q2H PRN PRN Reason: NICOTINE REPLACEMENT RX Non-Formulary Medication (Memantine Hcl [Namenda Xr]) 7 mg PO DAILY [facility] Oxycodone HCl (Roxicodone -) 5 mg PO Q4H PRN PRN Reason: PAIN Last Admin: 03/01/17 09:21 Dose: 5 mg Pantoprazole Sodium (Protonix -) 40 mg PO DAILY [facility] Last Admin: 08/01/17 09:21 Dose: 40 mg Pramipexole Dihydrochloride (Mirapex -) 0.5 mg PO BID [facility] Last Admin: 03/01/17 09:22 Dose: 0.5 mg Fluticasone/Salmeterol (Advair 100mcg/50mcg -) 1 puff IH BID [facility] Last Admin: 03/01/17 09:23 Dose: 1 puff Sitagliptin Phosphate (Januvia -) 50 mg PO DAILY@0700 [facility] Last Admin: 03/01/17 06:22 Dose: 50 mg Solifenacin (Vesicare -) 5 mg PO DAILY [facility] Last Admin: 03/01/17 09:22 Dose: 5 mg Tamsulosin HCl (Flomax -) 0.4 mg PO DAILY@0830 [facility] Last Admin: 03/01/17 09:21 Dose: 0.4 mg Trazodone HCl (Desyrel -) 50 mg PO HS [facility] Last Admin: 02/28/17 22:47 Dose: 50 mg a/p MRSA bacteremia continue vancomycin based on levels, received 500 mg today for debridement of foot in am renal function improving vanco/zosyn for diabetic foot ulcer- f/u culture results DM contact isolation for MRSA Problem List - Problems (1) Fever Code(s): R50.9 - FEVER, UNSPECIFIED Qualifiers: Fever type: unspecified Qualified Code(s): R50.9 - Fever, unspecified (2) Wound, open, foot Code(s): S91.309A - UNSPECIFIED OPEN WOUND, UNSPECIFIED FOOT, INITIAL ENCOUNTER Qualifiers: Encounter type: initial encounter Laterality: right Qualified Code( s): S91.301A - Unspecified open wound, right foot, initial encounter (3) Acute renal failure Code(s): N17.9 - ACUTE KIDNEY FAILURE, UNSPECIFIED Qualifiers: Acute renal failure type: unspecified Qualified Code(s): N17.9 - Acute kidney failure, unspecified (4) Diabetes mellitus type 2 with peripheral artery disease Code(s): E11.51 - TYPE 2 DIABETES W DIABETIC PERIPHERAL ANGIOPATH W/O GANGRENE (5) MRSA (methicillin resistant Staphylococcus aureus) Code(s): A49.02 - METHICILLIN RESIS STAPH INFECTION, UNSP SITE
--- NOTE | 2017-03-01 16:55 | PN ---
Physical Exam: SUBJECTIVE: Patient seen and examined No acute events overnight. Patient in mild pain this morning. OBJECTIVE: Vital Signs Period Temp Pulse Resp BP Sys/Cintron Pulse Ox Last 24 Hr 97.6 F-98.8 F 71-93 18-20 134-156/69-95 95-97 GENERAL: Awake, alert, and fully oriented, in no acute distress. HEAD: Normal with no signs of trauma. EYES: Pupils equal, round and reactive to light, extraocular movements intact, sclera anicteric, conjunctiva clear. No lid lag. EARS, NOSE, THROAT: Ears normal, nares patent, oropharynx clear without exudates. Moist mucous membranes. NECK: Normal range of motion, supple without lymphadenopathy, JVD, or masses. LUNGS: Breath sounds equal, clear to auscultation bilaterally. No wheezes, and no crackles. No accessory muscle use. HEART: Regular rate and rhythm, normal S1 and S2 without murmur, rub or gallop. ABDOMEN: Soft, nontender, not distended, normoactive bowel sounds, no guarding, no rebound, no masses. No hepatomegaly or splenomegaly. MUSCULOSKELETAL: Normal range of motion at all joints. No bony deformities or tenderness. No CVA tenderness. left foot 2nd toe amputation UPPER EXTREMITIES: 2+ pulses, warm, well-perfused. No cyanosis. No clubbing. No peripheral edema. LOWER EXTREMITIES:Right foot wrapped in dressing. + drainage at [facility] PSYCHIATRIC: Cooperative. Good eye contact. Appropriate mood and affect.m of foot. SKIN: Warm, dry, normal turgor, no rashes or lesions noted, normal capillary refill. Laboratory Results - last 24 hr 02/28/17 02/28/17 02/28/17 06:40 16:41 22:04 WBC RBC Hgb Hct MCV MCH MCHC RDW Plt Count MPV Neutrophils % Lymphocytes % Monocytes % Eosinophils % Basophils % Platelet Estimate Platelet Comment ESR Sodium Potassium Chloride Carbon Dioxide Anion Gap BUN Creatinine POC Glucometer 140 167 Random Glucose Calcium Iron 25 L TIBC 251 Iron Saturation 10 L Random Vancomycin 03/01/17 03/01/17 03/01/17 06:00 06:00 06:00 WBC 5.7 RBC 4.37 Hgb 9.5 L Hct 30.9 L MCV 70.6 L MCH 21.7 L MCHC 30.8 L RDW 18.6 H Plt Count 145 MPV 9.4 Neutrophils % 63.3 Lymphocytes % 15.9 D Monocytes % 13.2 H Eosinophils % 6.8 H Basophils % 0.8 Platelet Estimate Adequate Platelet Comment No clumping noted ESR 72 H Sodium Potassium Chloride Carbon Dioxide Anion Gap BUN Creatinine POC Glucometer Random Glucose Calcium Iron TIBC Iron Saturation Random Vancomycin 10.802 03/01/17 03/01/17 03/01/17 06:00 06:08 11:24 WBC RBC Hgb Hct MCV MCH MCHC RDW Plt Count MPV Neutrophils % Lymphocytes % Monocytes % Eosinophils % Basophils % Platelet Estimate Platelet Comment ESR Sodium 137 Potassium 4.6 Chloride 105 Carbon Dioxide 26 Anion Gap 6 L BUN 18 D Creatinine 1.4 H D POC Glucometer 122 140 Random Glucose 103 D Calcium 8.7 Iron TIBC Iron Saturation Random Vancomycin Active Medications Generic Name Dose Route Start Last Admin Trade Name Freq PRN Reason Stop Dose Admin Acetaminophen 650 mg 02/26/17 01:43 02/28/17 10:06 Tylenol - PO 650 mg Q6H PRN Administration FEVER OR PAIN Aclidinium [place] 1 puff 02/26/17 10:00 03/01/17 09:23 Tudorza - IH 1 puff BID MISSAEL Administration Albuterol/Ipratropium 1 amp 02/26/17 01:46 03/01/17 11:15 Duoneb - NEB 1 amp Q4H PRN Administration SHORTNESS OF BREATH Allopurinol 300 mg 02/26/17 10:00 03/01/17 09:21 Zyloprim - PO 300 mg DAILY MISSAEL Administration Amlodipine Besylate 5 mg 02/26/17 10:00 03/01/17 09:22 Norvasc - PO 5 mg DAILY MISSAEL Administration Artificial Tears 1 drop 02/26/17 07:20 Artificial Tears OU DAILY PRN DRY EYES Atorvastatin Calcium 20 mg 02/26/17 22:00 02/28/17 22:48 Lipitor - PO 20 mg HS MISSAEL Administration Clopidogrel Bisulfate 75 mg 02/26/17 10:00 03/01/17 09:22 Plavix - PO 75 mg DAILY MISSAEL Administration Collagenase 1 applic 02/26/17 10:00 03/01/17 09:24 Santyl - TP 1 applic DAILY MISSAEL Administration Docusate Sodium 300 mg 02/26/17 22:00 02/28/17 22:47 Colace - PO Not Given HS MISSAEL Erythromycin 1 applic 02/26/17 06:00 03/01/17 14:35 Erythromycin 0.5% Eye Ointment OD Not Given TID MISSAEL Ferrous Sulfate 325 mg 02/26/17 10:00 03/01/17 09:23 Feosol - PO 325 mg BID MISSAEL Administration Gabapentin 300 mg 02/26/17 06:00 03/01/17 14:35 Neurontin - PO 300 mg TID MISSAEL Administration Heparin Sodium (Porcine) 5,000 unit 02/26/17 06:00 03/01/17 06:21 Heparin - SQ 5,000 unit TID MISSAEL Administration Sodium Chloride 1,000 mls @ 75 mls/hr 02/26/17 01:45 03/01/17 03:32 Normal Saline - IV 75 mls/hr ASDIR MISSAEL Administration Piperacillin Sod/Tazobactam 50 mls @ 100 mls/hr 02/26/17 11:15 03/01/17 09:16 Sod 3.375 gm/ Dextrose IVPB 100 mls/hr Q8H-IV MISSAEL Administration Insulin Aspart 1 vial 02/26/17 07:00 03/01/17 12:23 Novolog Vial Sliding Scale - SQ Not Given ACHS [facility] Protocol Insulin Detemir 22 units 02/26/17 22:00 02/28/17 22:49 Levemir Vial SQ 22 units HS [facility] Administration Metoprolol Succinate 25 mg 02/26/17 10:00 03/01/17 09:21 Toprol Xl - PO 25 mg DAILY [facility] Administration Nicotine Polacrilex 2 mg 02/26/17 01:46 Nicorette Gum - BUC Q2H PRN NICOTINE REPLACEMENT RX Non-Formulary Medication 7 mg 02/26/17 10:00 Memantine Hcl [Namenda Xr] PO DAILY [facility] Oxycodone HCl 5 mg 02/26/17 01:43 03/01/17 09:21 Roxicodone - PO 5 mg Q4H PRN Administration PAIN Pantoprazole Sodium 40 mg 02/26/17 10:00 03/01/17 09:21 Protonix - PO 40 mg DAILY [facility] Administration Pramipexole Dihydrochloride 0.5 mg 02/26/17 10:00 03/01/17 09:22 Mirapex - PO 0.5 mg BID [facility] Administration Fluticasone/Salmeterol 1 puff 02/26/17 10:00 03/01/17 09:23 Advair 100mcg/50mcg - IH 1 puff BID MISSAEL Administration Sitagliptin Phosphate 50 mg 02/26/17 07:00 03/01/17 06:22 Januvia - PO 50 mg DAILY@0700 MISSAEL Administration Solifenacin 5 mg 02/26/17 10:00 03/01/17 09:22 Vesicare - PO 5 mg DAILY MISSAEL Administration Tamsulosin HCl 0.4 mg 02/26/17 08:30 03/01/17 09:21 Flomax - PO 0.4 mg DAILY@0830 MISSAEL Administration Trazodone HCl 50 mg 02/26/17 22:00 02/28/17 22:47 Desyrel - PO 50 mg HS MISSAEL Administration ASSESSMENT/PLAN: 66 yo M with PMH COPD, O2 dependent, asthma, sleep apnea, pulmonary fibrosis, CAD, CVA, HTN, HLD, GI bleed, DM with PVD, CKD & neuropathy, chronic R foot wound presented to the ED with fever and pain in right foot. #Sepsis secondary to MRSA bacteremia and MRSA foot infection -Patient has been afebrile -Echo- unremarkable for any vegetations -MRI reveals osteomyelitis of the right foot -Repeat BCx negative to date -Day 4 of Zosyn 3.375g , Vancomycin 500 mg. Vanco dose depending on levels tomorrow am. -Patient to surgery tomorrow with Dr. Solano for debridement -Vascular surgery/ID on board #JESÚS on CKD, secondary to sepsis -Cr improved to 1.4 -renal U/s negative -IVF -Avoid nephrotoxic agents #DM -BGM -ISS -Levemir 22 units #COPD -On home O2 3L -Continue Aclidinium bromide 1 puff BID -Continue advair 1 puff #FEN/GI -IVF 75 cc/hr -electrolytes wnl -Diabetic diet, NPO after midnight #PPx -DVT: Heparin 5000 units sq TID -GI: protonix 40 mg by mouth daily Visit type - Emergency Visit Emergency Visit: No - New Patient This patient is new to me today: No - Critical Care Critical Care patient: No
[2017-03-01] MEDS ORDERED: INSULIN (NOVOLOG) ASPART 100 UNITS/ML 10ML VIAL ONE (17:07)
--- NOTE | 2017-03-01 18:15 | PN ---
Teaching Attending Note Name of Resident: Miguelito Ray ATTENDING PHYSICIAN STATEMENT I saw and evaluated the patient. I reviewed the resident's note and discussed the case with the resident. I agree with the resident's findings and plan as documented. SUBJECTIVE: Patient complains of pain in right foot. OBJECTIVE: Vital Signs Period Temp Pulse Resp BP Sys/Cintron Pulse Ox Last 24 Hr 97.6 F-98.8 F 71-81 20-20 134-156/69-86 95-97 HEART: S1S2, RRR LUNGS: Clear ABDOMEN: Soft, non-tender, non-distended, normal BS EXTREMITIES: Right foot wrapped ASSESSMENT AND PLAN: This is a 65-year-old man with a history of COPD, asthma, SAMMY, DM, CAD, CVA, HTN , hyperlipidemia, CKD, PAD, gout who presented to the ER with fever. 1. Sepsis secondary to MRSA bacteremia and possible osteomyelitis of right foot - Continue Zosyn, Vancomycin - Repeat blood cultures negative so far - No evidence of endocarditis on echo - Continue wound care - Plan for debridement tomorrow 2. Acute kidney injury - Improved 3. Stage 3 CKD 4. Type 2 DM - Continue Januvia, Levemir, Novolog sliding scale 5. COPD/asthma/pulmonary fibrosis - Stable - Continue Tudorza, Advair, DuoNeb as needed 6. SAMMY 7. Chronic hypoxic respiratory failure - Continue oxygen 8. Microcytic anemia- no signs of acute blood loss. possible dilutional component. monitor as has hx GI bleed. iron panel pending. no indication for txn 9. HTN - Continue Norvasc, Toprol XL - Lasix, Cozaar held secondary to JESÚS 10. PAD, history of SFA stent - Continue Plavix 11. History of CVA 12. Hyperlipidemia - Continue Lipitor 13. History of gout - Continue Allopurinol 14. BPH - Continue Flomax 15. CAD - Continue Toprol XL, Lipitor, Plavix
[2017-03-01] MEDS: traZODone HCL 50 MG TABLET (FP) PO SCH (21:46)
[2017-03-01] MEDS: ATORVASTATIN CA 20 MG TABLET (FP) PO SCH (21:46)
[2017-03-01] MEDS: DOCUSATE SODIUM 100 MG CAPSULE (FP) PO SCH (21:52)
[2017-03-01] MEDS: ARTIFICIAL TEARS (POLYVINYL ALCOHOL 1.4%) OPTH DROPS OU PRN (21:54)
[2017-03-01] MEDS ORDERED: INSULIN DETEMIR 100 UNITS/ML MDV SQ ONE (23:22)
[2017-03-01] MEDS: INSULIN DETEMIR 100 UNITS/ML MDV SQ SCH (23:22)
[2017-03-02] MEDS: PIPERACILLIN/TAZOB 3.375 GM 3.375 GM in DEXTROSE 5%-WATER - 50 ML IVPB SCH ×3 (01:15→21:10)
[2017-03-02] MEDS: SODIUM CHLORIDE 1,000 ML IV SCH ×2 (01:20→09:03)
[2017-03-02] MEDS: GABAPENTIN 300 MG CAPSULE (FP) PO SCH ×3 (06:29→21:36)
[2017-03-02] MEDS: ERYTHROMYCIN 0.5% OPHTHALMIC OINTMENT 3.5 GM TUBE OD SCH ×3 (06:29→21:51)
[2017-03-02] MEDS: sitaGLIPtin PHOSPHATE 50 MG TABLET PO SCH (06:29)
[2017-03-02] MEDS: INSULIN SLIDING SCALE (NOVOLOG) 1 VIAL SQ SCH ×4 (06:29→21:10)
[2017-03-02 07:51] LABS: MCH 21.7 pg (25.7-33.7); MCHC 31.4 g/dl (32.0-35.9); MEAN CELL VOLUME 69.3 fl (80-96); MEAN PLT VOLUME 10.1 fl (7.5-11.1); NEUTROPHILS 69.6 % (42.8-82.8); PLATELET COUNT 178 K/MM3 (134-434); RDW 18.8 % (11.9-15.9); WHITE BLOOD COUNT 6.3 K/mm3 (4.0-10.0)
[2017-03-02 08:22] LABS: ANION GAP 8 (8-16); CALCIUM 8.5 mg/dL (8.5-10.1); CO2 27 mmol/L (21-32)
[2017-03-02 08:28] LABS: CREATININE 1.2 mg/dL (0.7-1.3); GLUCOSE,RANDOM 74 mg/dL (74-106)
[2017-03-02] MEDS ORDERED: PIPERACILLIN/TAZOBACTAM 3.375 GM VIAL IVPB ONE ×2 (10:20→20:50)
[2017-03-02] MEDS ORDERED: DEXTROSE 5%-WATER - 50 ML IVPB ONE ×2 (10:20→20:50)
[2017-03-02] MEDS: ACETAMINOPHEN 325 MG TABLET (FP) PO PRN (10:27)
[2017-03-02] MEDS: oxyCODONE HCL 5 MG TABLET PO PRN (10:27)
[2017-03-02] MEDS: PANTOPRAZOLE 40 MG TABLET (FP) PO SCH (10:28)
[2017-03-02] MEDS: METOPROLOL SUCCINATE 25 MG TAB.SR.24H (FP) PO SCH (10:28)
[2017-03-02] MEDS: amLODIPine BESYLATE 5 MG TABLET (FP) PO SCH (10:28)
[2017-03-02] MEDS: FERROUS SO4 325 MG TABLET (FP) PO SCH ×2 (10:28→21:35)
[2017-03-02] MEDS: ALLOPURINOL 300 MG TABLET (FP) PO SCH (10:28)
[2017-03-02] MEDS: TAMSULOSIN HCL 0.4 MG CAP.ER.24H (FP) PO SCH (10:28)
[2017-03-02] MEDS: CLOPIDOGREL BISULFATE 75 MG TABLET (FP) PO SCH (10:30)
[2017-03-02] MEDS: COLLAGENASE CLOSTRIDIUM HIST. 30 GRAMS TUBE TP SCH (10:30)
[2017-03-02] MEDS: PRAMIPEXOLE DIHYDROCHLORIDE 0.5 MG TABLET PO SCH ×2 (10:40→21:37)
[2017-03-02] MEDS: FLUTICASONE/SALMETEROL 100 MCG/50 MCG DISKUS IH SCH ×2 (10:40→21:34)
[2017-03-02] MEDS: ACLIDINIUM BROMIDE 400 MCG/INH AERO.POWD IH SCH ×2 (10:41→21:36)
[2017-03-02] MEDS: SOLIFENACIN SUCCINATE 5 MG TAB (FP) PO SCH (10:41)
[2017-03-02] MEDS ORDERED: VANCOMYCIN 500 MG in DEXTROSE 5%-WATER - 100 ML IVPB ONE (14:33)
--- NOTE | 2017-03-02 15:45 | PN ---
Physical Exam: SUBJECTIVE: Patient seen and examined No acute events overnight. Patient has no complaints this morning. NPO for surgery OBJECTIVE: Vital Signs Period Temp Pulse Resp BP Sys/Cintron Pulse Ox Last 24 Hr 97.7 F-98.8 F 68-83 20-20 136-166/78-93 97 GENERAL: Awake, alert, and fully oriented, in no acute distress. HEAD: Normal with no signs of trauma. EYES: Pupils equal, round and reactive to light, extraocular movements intact, sclera anicteric, conjunctiva clear. No lid lag. EARS, NOSE, THROAT: Ears normal, nares patent, oropharynx clear without exudates. Moist mucous membranes. NECK: Normal range of motion, supple without lymphadenopathy, JVD, or masses. LUNGS: Breath sounds equal, clear to auscultation bilaterally. No wheezes, and no crackles. No accessory muscle use. HEART: Regular rate and rhythm, normal S1 and S2 without murmur, rub or gallop. ABDOMEN: Soft, nontender, not distended, normoactive bowel sounds, no guarding, no rebound, no masses. No hepatomegaly or splenomegaly. MUSCULOSKELETAL: Normal range of motion at all joints. No bony deformities or tenderness. No CVA tenderness. left foot 2nd toe amputation UPPER EXTREMITIES: 2+ pulses, warm, well-perfused. No cyanosis. No clubbing. No peripheral edema. LOWER EXTREMITIES:Right foot wrapped in dressing and boot on. + drainage at bottom PSYCHIATRIC: Cooperative. Good eye contact. Appropriate mood and affect.m of foot. SKIN: Warm, dry, normal turgor, no rashes or lesions noted, normal capillary refill. Laboratory Results - last 24 hr 03/01/17 03/01/17 03/02/17 16:34 21:40 05:35 WBC RBC Hgb Hct MCV MCH MCHC RDW Plt Count MPV Neutrophils % Lymphocytes % Monocytes % Eosinophils % Basophils % Sodium Potassium Chloride Carbon Dioxide Anion Gap BUN Creatinine POC Glucometer 180 82 Random Glucose Calcium Random Vancomycin 11.085 03/02/17 03/02/17 03/02/17 05:35 05:35 06:32 WBC 6.3 RBC 4.50 Hgb 9.8 L Hct 31.2 L MCV 69.3 L MCH 21.7 L MCHC 31.4 L RDW 18.8 H Plt Count 178 D MPV 10.1 Neutrophils % 69.6 Lymphocytes % 14.2 Monocytes % 10.2 Eosinophils % 5.0 H Basophils % 1.0 Sodium 141 Potassium 4.3 Chloride 106 Carbon Dioxide 27 Anion Gap 8 BUN 12 D Creatinine 1.2 POC Glucometer 93 Random Glucose 74 D Calcium 8.5 Random Vancomycin 03/02/17 11:20 WBC RBC Hgb Hct MCV MCH MCHC RDW Plt Count MPV Neutrophils % Lymphocytes % Monocytes % Eosinophils % Basophils % Sodium Potassium Chloride Carbon Dioxide Anion Gap BUN Creatinine POC Glucometer 90 Random Glucose Calcium Random Vancomycin Active Medications Generic Name Dose Route Start Last Admin Trade Name Freq PRN Reason Stop Dose Admin Acetaminophen 650 mg 02/26/17 01:43 03/02/17 10:27 Tylenol - PO 650 mg Q6H PRN Administration FEVER OR PAIN Aclidinium [place] 1 puff 02/26/17 10:00 03/02/17 10:41 Tudorza - IH 1 puff BID MISSAEL Administration Albuterol/Ipratropium 1 amp 02/26/17 01:46 03/01/17 11:15 Duoneb - NEB 1 amp Q4H PRN Administration SHORTNESS OF BREATH Allopurinol 300 mg 02/26/17 10:00 03/02/17 10:28 Zyloprim - PO 300 mg DAILY MISSAEL Administration Amlodipine Besylate 5 mg 02/26/17 10:00 03/02/17 10:28 Norvasc - PO 5 mg DAILY MISSAEL Administration Artificial Tears 1 drop 02/26/17 07:20 03/01/17 21:54 Artificial Tears OU 1 drop DAILY PRN Administration DRY EYES Atorvastatin Calcium 20 mg 02/26/17 22:00 03/01/17 21:46 Lipitor - PO 20 mg HS MISSAEL Administration Clopidogrel Bisulfate 75 mg 02/26/17 10:00 03/02/17 10:30 Plavix - PO Not Given DAILY MISSAEL Collagenase 1 applic 02/26/17 10:00 03/02/17 10:30 Santyl - TP Not Given DAILY MISSAEL Docusate Sodium 300 mg 02/26/17 22:00 03/01/17 21:52 Colace - PO Not Given HS MISSAEL Erythromycin 1 applic 02/26/17 06:00 03/02/17 06:29 Erythromycin 0.5% Eye Ointment OD Not Given T[facility] Ferrous Sulfate 325 mg 02/26/17 10:00 03/02/17 10:28 Feosol - PO 325 mg BID MISSAEL Administration Gabapentin 300 mg 02/26/17 06:00 03/02/17 06:29 Neurontin - PO Not Given TID MISSAEL Heparin Sodium (Porcine) 5,000 unit 02/26/17 06:00 03/01/17 06:21 Heparin - SQ 5,000 unit TID MISSAEL Administration Sodium Chloride 1,000 mls @ 75 mls/hr 02/26/17 01:45 03/02/17 09:03 Normal Saline - IV 75 mls/hr ASDIR MISSAEL Administration Piperacillin Sod/Tazobactam 50 mls @ 100 mls/hr 02/26/17 11:15 03/02/17 10:26 Sod 3.375 gm/ Dextrose IVPB 100 mls/hr Q8H-IV MISSAEL Administration Insulin Aspart 1 vial 02/26/17 07:00 03/02/17 11:22 Novolog Vial Sliding Scale - SQ Not Given ACHS [facility] Protocol Insulin Detemir 22 units 02/26/17 22:00 03/01/17 23:22 Levemir Vial SQ Not Given HS [facility] Metoprolol Succinate 25 mg 02/26/17 10:00 03/02/17 10:28 Toprol Xl - PO 25 mg DAILY MISSAEL Administration Nicotine Polacrilex 2 mg 02/26/17 01:46 Nicorette Gum - BUC Q2H PRN NICOTINE REPLACEMENT RX Non-Formulary Medication 7 mg 02/26/17 10:00 Memantine Hcl [Namenda Xr] PO DAILY MISSAEL Oxycodone HCl 5 mg 02/26/17 01:43 03/02/17 10:27 Roxicodone - PO 5 mg Q4H PRN Administration PAIN Pantoprazole Sodium 40 mg 02/26/17 10:00 03/02/17 10:28 Protonix - PO 40 mg DAILY MISSAEL Administration Pramipexole Dihydrochloride 0.5 mg 02/26/17 10:00 03/02/17 10:40 Mirapex - PO 0.5 mg BID MISSAEL Administration Fluticasone/Salmeterol 1 puff 02/26/17 10:00 03/02/17 10:40 Advair 100mcg/50mcg - IH 1 puff BID MISSAEL Administration Sitagliptin Phosphate 50 mg 02/26/17 07:00 03/02/17 06:29 Januvia - PO Not Given DAILY@0700 MISSAEL Solifenacin 5 mg 02/26/17 10:00 03/02/17 10:41 Vesicare - PO 5 mg DAILY MISSAEL Administration Tamsulosin HCl 0.4 mg 02/26/17 08:30 03/02/17 10:28 Flomax - PO 0.4 mg DAILY@0830 MISSAEL Administration Trazodone HCl 50 mg 02/26/17 22:00 03/01/17 21:46 Desyrel - PO 50 mg HS MISSAEL Administration ASSESSMENT/PLAN: 66 yo M with PMH COPD, O2 dependent, asthma, sleep apnea, pulmonary fibrosis, CAD, CVA, HTN, HLD, GI bleed, DM with PVD, CKD & neuropathy, chronic R foot wound presented to the ED with fever and pain in right foot. #Sepsis secondary to MRSA bacteremia and MRSA foot infection -Patient has been afebrile -Echo- unremarkable for any vegetations -MRI reveals osteomyelitis of the right foot -Repeat BCx negative to date -Day 5 of Zosyn 3.375g , Vancomycin 1 g standing order per ID -Patient to surgery tomorrow with Dr. Solano for debridement. Will get deep culture to evaluate need for Zosyn. -Pain control -Vascular surgery/ID on board #JESÚS on CKD, secondary to sepsis -Cr improved to 1.2 -renal U/s negative -IVF -Avoid nephrotoxic agents #DM -BGM -ISS -Levemir 22 units #COPD -On home O2 3L -Continue Aclidinium bromide 1 puff BID -Continue advair 1 puff #FEN/GI -IVF 75 cc/hr -electrolytes wnl -Diabetic diet, NPO after midnight #PPx -DVT: Heparin 5000 units sq TID -GI: protonix 40 mg by mouth daily Visit type - Emergency Visit Emergency Visit: No - New Patient This patient is new to me today: No - Critical Care Critical Care patient: No
--- NOTE | 2017-03-02 15:48 | PN ---
Progress Note (short form) - Note Progress Note: awaiting surgery no complaints Vital Signs Period Temp Pulse Resp BP Sys/Cintron Pulse Ox Last 24 Hr 97.7 F-98.8 F 68-83 20-20 136-166/78-93 97 cor-rrr lungs clear abd soft,nt ext no edema CBC, BMP 03/02/17 05:35 03/02/17 05:35 Laboratory Tests 03/02/17 05:35 Random Vancomycin 11.085 MRI foot- osteo, ?abscess echo- no vegetation Microbiology 02/28/17 06:40 Blood - Peripheral Venous Blood Culture - Preliminary NO GROWTH OBTAINED AFTER 48 HOURS, INCUBATION TO CONTINUE FOR 3 DAYS. 02/28/17 06:40 Blood - Peripheral Venous Blood Culture - Preliminary NO GROWTH OBTAINED AFTER 48 HOURS, INCUBATION TO CONTINUE FOR 3 DAYS. 02/25/17 17:31 Blood - Peripheral Venous Blood Culture - Preliminary NO GROWTH OBTAINED AFTER 96 HOURS, INCUBATION TO CONTINUE FOR 1 DAYS. 02/25/17 18:35 Foot - Right Plantar Gram Stain - Final 02/25/17 18:35 Foot - Right Plantar Wound Culture - Final Mr S Aureus Klebsiella Pneumoniae Pseudomonas Aeruginosa 02/25/17 17:31 Blood - Peripheral Venous Blood Culture - Final Mr S Aureus 02/26/17 01:55 Urine - Urine Clean Catch Urine Culture - Final NO GROWTH OBTAINED a/p MRSA bacteremia for debridement of foot today renal function improving- vancomycin 1 gram daily to start today vanco/zosyn for diabetic foot ulcer- f/u culture results DM contact isolation for MRSA Problem List - Problems (1) Fever Code(s): R50.9 - FEVER, UNSPECIFIED Qualifiers: Fever type: unspecified Qualified Code(s): R50.9 - Fever, unspecified (2) Wound, open, foot Code(s): S91.309A - UNSPECIFIED OPEN WOUND, UNSPECIFIED FOOT, INITIAL ENCOUNTER Qualifiers: Encounter type: initial encounter Laterality: right Qualified Code( s): S91.301A - Unspecified open wound, right foot, initial encounter (3) Acute renal failure Code(s): N17.9 - ACUTE KIDNEY FAILURE, UNSPECIFIED Qualifiers: Acute renal failure type: unspecified Qualified Code(s): N17.9 - Acute kidney failure, unspecified (4) Diabetes mellitus type 2 with peripheral artery disease Code(s): E11.51 - TYPE 2 DIABETES W DIABETIC PERIPHERAL ANGIOPATH W/O GANGRENE (5) MRSA (methicillin resistant Staphylococcus aureus) Code(s): A49.02 - METHICILLIN RESIS STAPH INFECTION, UNSP SITE
[2017-03-02] MEDS ORDERED: VANCOMYCIN 1 GRAM (PRE-DOCKED) 1,000 MG/250 ML BAG IVPB SCH (17:00)
--- NOTE | 2017-03-02 17:14 | PN ---
Teaching Attending Note Name of Resident: Miguelito Ray ATTENDING PHYSICIAN STATEMENT I saw and evaluated the patient. I reviewed the resident's note and discussed the case with the resident. I agree with the resident's findings and plan as documented. SUBJECTIVE: No complaints. OBJECTIVE: Vital Signs Period Temp Pulse Resp BP Sys/Cintron Pulse Ox Last 24 Hr 97.7 F-98.8 F 68-83 20-20 136-166/78-93 97 HEART: S1S2, RRR LUNGS: Clear ABDOMEN: Soft, non-tender, non-distended, normal BS EXTREMITIES: Right foot wrapped ASSESSMENT AND PLAN: This is a 65-year-old man with a history of COPD, asthma, SAMMY, DM, CAD, CVA, HTN , hyperlipidemia, CKD, PAD, gout who presented to the ER with fever. 1. Sepsis secondary to MRSA bacteremia and possible abscess/osteomyelitis of right foot - Continue Zosyn, Vancomycin - Repeat blood cultures negative so far - No evidence of endocarditis on echo - Continue wound care - Plan for debridement today 2. Acute kidney injury - Improved 3. Stage 3 CKD 4. Type 2 DM - Continue Januvia, Levemir, Novolog sliding scale 5. COPD/asthma/pulmonary fibrosis - Stable - Continue Tudorza, Advair, DuoNeb as needed 6. SAMMY 7. Chronic hypoxic respiratory failure - Continue oxygen 8. Microcytic anemia - Hemoglobin is stable 9. HTN - Continue Norvasc, Toprol XL - Lasix, Cozaar held secondary to JESÚS 10. PAD, history of SFA stent - Continue Plavix 11. History of CVA 12. Hyperlipidemia - Continue Lipitor 13. History of gout - Continue Allopurinol 14. BPH - Continue Flomax 15. CAD - Continue Toprol XL, Lipitor, Plavix
[2017-03-02] MEDS ORDERED: MIDAZOLAM HCL 2 MG/2 ML SINGLE DOSE VIAL ONE (19:29)
[2017-03-02] MEDS ORDERED: LIDOCAINE HCL 1%, 10 MG/ML (20ML VIAL) IJ ONE ×3 (19:37)
--- NOTE | 2017-03-02 19:47 | OP ---
Operative Note - Note: Operative Date: 03/02/17 Pre-Operative Diagnosis: Right foot abscess Operation: Excisonal debridement skin,subcutanous tissue right foot ulcer Findings: Debridement performed. area of base of 2nd metatarsal head explored. Minimal pus/drainage found. Cultures taken from that area, as per MRI Post-Operative Diagnosis: Same as Pre-op Surgeon: Janusz Solano Anesthesia: Fractional Estimated Blood Loss (mls): 5 Operative Report Dictated: Yes
[2017-03-02] MEDS ORDERED: INSULIN (NOVOLOG) ASPART 100 UNITS/ML 10ML VIAL ONE (20:49)
[2017-03-02] MEDS ORDERED: PT OWN MED DRAWER 7, Y5N ONE ×2 (20:50→21:37)
[2017-03-02] MEDS ORDERED: INSULIN DETEMIR 100 UNITS/ML MDV SQ ONE (21:31)
[2017-03-02] MEDS: DOCUSATE SODIUM 100 MG CAPSULE (FP) PO SCH (21:34)
[2017-03-02] MEDS: traZODone HCL 50 MG TABLET (FP) PO SCH (21:34)
[2017-03-02] MEDS: INSULIN DETEMIR 100 UNITS/ML MDV SQ SCH (21:35)
[2017-03-02] MEDS: ATORVASTATIN CA 20 MG TABLET (FP) PO SCH (21:35)
[2017-03-03] MEDS ORDERED: PIPERACILLIN/TAZOBACTAM 3.375 GM VIAL IVPB ONE ×3 (00:57→16:33)
[2017-03-03] MEDS ORDERED: DEXTROSE 5%-WATER - 50 ML IVPB ONE ×3 (00:57→16:33)
[2017-03-03] MEDS: oxyCODONE HCL 5 MG TABLET PO PRN ×3 (01:03→22:11)
[2017-03-03] MEDS: PIPERACILLIN/TAZOB 3.375 GM 3.375 GM in DEXTROSE 5%-WATER - 50 ML IVPB SCH ×3 (01:04→17:15)
[2017-03-03] MEDS: SODIUM CHLORIDE 1,000 ML IV SCH ×2 (01:04→16:41)
[2017-03-03] MEDS: HEPARIN NA (PORCINE) 5,000 UNITS/ML 1ML VIAL SQ SCH ×3 (06:40→22:13)
[2017-03-03] MEDS: INSULIN SLIDING SCALE (NOVOLOG) 1 VIAL SQ SCH ×4 (06:41→22:09)
[2017-03-03] MEDS: GABAPENTIN 300 MG CAPSULE (FP) PO SCH ×3 (06:41→22:12)
[2017-03-03] MEDS: sitaGLIPtin PHOSPHATE 50 MG TABLET PO SCH (06:41)
[2017-03-03] MEDS: ERYTHROMYCIN 0.5% OPHTHALMIC OINTMENT 3.5 GM TUBE OD SCH ×4 (06:46→22:21)
[2017-03-03] MEDS ORDERED: PT OWN MED DRAWER 7, Y5N ONE ×5 (07:00→20:26)
[2017-03-03] MEDS ORDERED: INSULIN (NOVOLOG) ASPART 100 UNITS/ML 10ML VIAL ONE ×2 (07:00→11:22)
[2017-03-03 07:57] LABS: BASOPHIL 0.7 % (0-2.0); EOSINOPHIL 3.4 % (0-4.5); MCH 21.5 pg (25.7-33.7); MCHC 30.8 g/dl (32.0-35.9); MEAN CELL VOLUME 69.9 fl (80-96); MEAN PLT VOLUME 9.7 fl (7.5-11.1); NEUTROPHILS 72.3 % (42.8-82.8); PLATELET COUNT 202 K/MM3 (134-434); RDW 19.1 % (11.9-15.9); WHITE BLOOD COUNT 7.8 K/mm3 (4.0-10.0)
[2017-03-03 08:22] LABS: ANION GAP 7 (8-16); CALCIUM 8.8 mg/dL (8.5-10.1); CO2 28 mmol/L (21-32); GLUCOSE,RANDOM 127 mg/dL (74-106)
[2017-03-03 08:25] LABS: CREATININE 1.5 mg/dL (0.7-1.3)
--- NOTE | 2017-03-03 09:30 | PN ---
Progress Note (short form) - Note Progress Note: ID Vancomycin and Zosyn Selected Entries 03/03/17 05:00 Temperature 98.8 F Pulse Rate 69 Respiratory 18 Rate Blood Pressure 124/69 S/P excsional debridement of the right foot per Dr Solano Microbiology 02/25/17 18:35 Foot - Right Plantar Gram Stain - Final 02/25/17 18:35 Foot - Right Plantar Wound Culture - Final Mr S Aureus Klebsiella Pneumoniae Pseudomonas Aeruginosa 02/25/17 17:31 Blood - Peripheral Venous Blood Culture - Final Mr S Aureus 02/28/17 06:40 Blood - Peripheral Venous Blood Culture - Preliminary NO GROWTH OBTAINED AFTER 72 HOURS, INCUBATION TO CONTINUE FOR 2 DAYS. 02/28/17 06:40 Blood - Peripheral Venous Blood Culture - Preliminary NO GROWTH OBTAINED AFTER 72 HOURS, INCUBATION TO CONTINUE FOR 2 DAYS. Laboratory Tests 03/01/17 03/03/17 03/03/17 06:00 06:00 06:00 WBC 7.8 Hgb 10.2 L Plt Count 202 ESR 72 H BUN Creatinine Random Vancomycin 18.812 03/03/17 06:00 WBC Hgb Plt Count ESR BUN 15 D Creatinine 1.5 H D Random Vancomycin Assessment Osteomyelitis of the rigt foot MRSA bacteremia/ Polymicrobial culture Plan Lets try to keep level around 15ug Vanco Change to 750mg daily plus Zosyn for another 5 weeks Emmanuel BANEGAS
--- NOTE | 2017-03-03 09:51 | OP ---
DATE OF OPERATION: 03/02/2017 PREOPERATIVE DIAGNOSIS: Right foot abscess. POSTOPERATIVE DIAGNOSIS: Right foot abscess. PROCEDURE: Excisional debridement skin and subcutaneous tissue, right foot. SURGEON: Janusz Read DO ANESTHESIA: Fractional. BLOOD LOSS: 5 mL. INDICATIONS: The patient is a 66-year-old male who has a right foot diabetic foot ulcer. He had a preoperative MRI performed that shows that he has loculated possible abscess at the bedside of the 2nd metatarsal toe joint, and it was decided that would need to be explored. DESCRIPTION OF PROCEDURE: The patient was consented for the procedure understanding all risks, benefits, and alternatives and then taken to the operating room. Once in the operating room, he was laid on the operating table and the area of the right foot and leg was prepped and draped in a sterile surgical manner. We then went ahead and took a curette and debrided away all of the skin and subcutaneous tissue that was slough. We then went ahead and placed a clamp up to the 2nd metatarsal joint and explored the area. There was minimal drainage coming out from there, and a culture was taken from the same spot. We then went ahead and did a finger sweep to make sure there were no loculated abscesses or any pus. The wound was then well irrigated. A wet 4x4 was placed, dry 4x4s, and a Kerlix was placed. The patient tolerated the procedure well with no complication. The patient was transferred to the PACU in stable condition. JANUSZ READ DO [id number]
[2017-03-03] MEDS: VANCOMYCIN 750 MG in DEXTROSE 5%-WATER - 250 ML IVPB SCH (10:18)
[2017-03-03] MEDS: FLUTICASONE/SALMETEROL 100 MCG/50 MCG DISKUS IH SCH ×2 (11:02→22:11)
[2017-03-03] MEDS: ACLIDINIUM BROMIDE 400 MCG/INH AERO.POWD IH SCH ×2 (11:02→22:11)
[2017-03-03] MEDS: TAMSULOSIN HCL 0.4 MG CAP.ER.24H (FP) PO SCH (11:04)
[2017-03-03] MEDS: SOLIFENACIN SUCCINATE 5 MG TAB (FP) PO SCH (11:04)
[2017-03-03] MEDS: PRAMIPEXOLE DIHYDROCHLORIDE 0.5 MG TABLET PO SCH ×2 (11:04→22:12)
[2017-03-03] MEDS: PANTOPRAZOLE 40 MG TABLET (FP) PO SCH (11:04)
[2017-03-03] MEDS: ALLOPURINOL 300 MG TABLET (FP) PO SCH (11:05)
[2017-03-03] MEDS: METOPROLOL SUCCINATE 25 MG TAB.SR.24H (FP) PO SCH (11:05)
[2017-03-03] MEDS: FERROUS SO4 325 MG TABLET (FP) PO SCH ×2 (11:05→22:12)
[2017-03-03] MEDS: CLOPIDOGREL BISULFATE 75 MG TABLET (FP) PO SCH (11:05)
[2017-03-03] MEDS: COLLAGENASE CLOSTRIDIUM HIST. 30 GRAMS TUBE TP SCH (11:06)
[2017-03-03] MEDS: amLODIPine BESYLATE 5 MG TABLET (FP) PO SCH (11:06)
--- NOTE | 2017-03-03 11:08 | PN ---
Progress Note (short form) - Note Progress Note: Pot op day#1.S/P Excision and debredment of right foot abscess under MAC uneventful.Patient stable.No any anesthesia related problem.Patient DC from the anesthesia care.
--- NOTE | 2017-03-03 14:30 | PN ---
Teaching Attending Note Name of Resident: Miguelito Ray ATTENDING PHYSICIAN STATEMENT I saw and evaluated the patient. I reviewed the resident's note and discussed the case with the resident. I agree with the resident's findings and plan as documented. SUBJECTIVE: Patient complains of pain in his right foot. OBJECTIVE: Vital Signs Period Temp Pulse Resp BP Sys/Cintron Pulse Ox Last 24 Hr 97.3 F-98.8 F 65-79 18-20 124-157/67-91 95-96 HEART: S1S2, RRR LUNGS: Clear ABDOMEN: Soft, non-tender, non-distended, normal BS EXTREMITIES: Right foot wrapped ASSESSMENT AND PLAN: This is a 65-year-old man with a history of COPD, asthma, SAMMY, DM, CAD, CVA, HTN , hyperlipidemia, CKD, PAD, gout who presented to the ER with fever. 1. Sepsis secondary to MRSA bacteremia and possible abscess/osteomyelitis of right foot - Wound culture (02/25) grew MRSA, Klebsiella, Pseudomonas - Repeat blood cultures negative after 72 hours - No evidence of endocarditis on echo - Continue Zosyn, Vancomycin - Continue wound care - s/p excisional debridement of right foot skin and subcutaneous tissue 03/02 - follow-up cultures 2. Acute kidney injury - Improved 3. Stage 3 CKD 4. Type 2 DM - Continue Januvia, Levemir, Novolog sliding scale 5. COPD/asthma/pulmonary fibrosis - Stable - Continue Tudorza, Advair, DuoNeb as needed 6. SAMMY 7. Chronic hypoxic respiratory failure - Continue oxygen 8. Microcytic anemia - Hemoglobin is stable 9. HTN - Continue Norvasc, Toprol XL - Lasix, Cozaar held secondary to JESÚS 10. PAD, history of SFA stent - Continue Plavix 11. History of CVA 12. Hyperlipidemia - Continue Lipitor 13. History of gout - Continue Allopurinol 14. BPH - Continue Flomax 15. CAD - Continue Toprol XL, Lipitor, Plavix
--- NOTE | 2017-03-03 16:59 | PN ---
Physical Exam: SUBJECTIVE: Patient seen and examined Patient is s/p debridement on 03/02. Patient has pain in right foot. OBJECTIVE: Vital Signs Period Temp Pulse Resp BP Sys/Cintron Pulse Ox Last 24 Hr 97.3 F-98.8 F 65-79 18-20 124-157/67-91 95-96 GENERAL: Awake, alert, and fully oriented, in no acute distress. HEAD: Normal with no signs of trauma. EYES: Pupils equal, round and reactive to light, extraocular movements intact, sclera anicteric, conjunctiva clear. No lid lag. EARS, NOSE, THROAT: Ears normal, nares patent, oropharynx clear without exudates. Moist mucous membranes. NECK: Normal range of motion, supple without lymphadenopathy, JVD, or masses. LUNGS: Breath sounds equal, clear to auscultation bilaterally. No wheezes, and no crackles. No accessory muscle use. HEART: Regular rate and rhythm, normal S1 and S2 without murmur, rub or gallop. ABDOMEN: Soft, nontender, not distended, normoactive bowel sounds, no guarding, no rebound, no masses. No hepatomegaly or splenomegaly. MUSCULOSKELETAL: Normal range of motion at all joints. No bony deformities or tenderness. No CVA tenderness. left foot 2nd toe amputation UPPER EXTREMITIES: 2+ pulses, warm, well-perfused. No cyanosis. No clubbing. No peripheral edema. LOWER EXTREMITIES:Right foot wrapped in dressing and boot on. PSYCHIATRIC: Cooperative. Good eye contact. Appropriate mood and affect.m of foot. SKIN: Warm, dry, normal turgor, no rashes or lesions noted, normal capillary refill. Laboratory Results - last 24 hr 03/02/17 03/02/17 03/03/17 17:11 21:05 06:00 WBC RBC Hgb Hct MCV MCH MCHC RDW Plt Count MPV Neutrophils % Lymphocytes % Monocytes % Eosinophils % Basophils % Sodium Potassium Chloride Carbon Dioxide Anion Gap BUN Creatinine POC Glucometer 86 122 Random Glucose Calcium Random Vancomycin 18.812 03/03/17 03/03/17 03/03/17 06:00 06:00 06:39 WBC 7.8 RBC 4.73 Hgb 10.2 L Hct 33.1 L MCV 69.9 L MCH 21.5 L MCHC 30.8 L RDW 19.1 H Plt Count 202 MPV 9.7 Neutrophils % 72.3 Lymphocytes % 14.2 Monocytes % 9.4 Eosinophils % 3.4 Basophils % 0.7 Sodium 139 Potassium 4.2 Chloride 104 Carbon Dioxide 28 Anion Gap 7 L BUN 15 D Creatinine 1.5 H D POC Glucometer 106 Random Glucose 127 H D Calcium 8.8 Random Vancomycin 03/03/17 11:18 WBC RBC Hgb Hct MCV MCH MCHC RDW Plt Count MPV Neutrophils % Lymphocytes % Monocytes % Eosinophils % Basophils % Sodium Potassium Chloride Carbon Dioxide Anion Gap BUN Creatinine POC Glucometer 359 Random Glucose Calcium Random Vancomycin Active Medications Generic Name Dose Route Start Last Admin Trade Name Freq PRN Reason Stop Dose Admin Acetaminophen 650 mg 02/26/17 01:43 03/02/17 10:27 Tylenol - PO 650 mg Q6H PRN Administration FEVER OR PAIN Aclidinium [place] 1 puff 02/26/17 10:00 03/03/17 11:02 Tudorza - IH 1 puff BID MISSAEL Administration Albuterol/Ipratropium 1 amp 02/26/17 01:46 03/01/17 11:15 Duoneb - NEB 1 amp Q4H PRN Administration SHORTNESS OF BREATH Allopurinol 300 mg 02/26/17 10:00 03/03/17 11:05 Zyloprim - PO 300 mg DAILY MISSAEL Administration Amlodipine Besylate 5 mg 02/26/17 10:00 03/03/17 11:06 Norvasc - PO 5 mg DAILY MISSAEL Administration Artificial Tears 1 drop 02/26/17 07:20 03/01/17 21:54 Artificial Tears OU 1 drop DAILY PRN Administration DRY EYES Atorvastatin Calcium 20 mg 02/26/17 22:00 03/02/17 21:35 Lipitor - PO 20 mg HS MISSAEL Administration Clopidogrel Bisulfate 75 mg 02/26/17 10:00 03/03/17 11:05 Plavix - PO 75 mg DAILY MISSAEL Administration Collagenase 1 applic 02/26/17 10:00 03/03/17 11:06 Santyl - TP 1 applic DAILY MISSAEL Administration Docusate Sodium 300 mg 02/26/17 22:00 03/02/17 21:34 Colace - PO Not Given HS MISSAEL Erythromycin 1 applic 02/26/17 06:00 03/03/17 16:49 Erythromycin 0.5% Eye Ointment OD Not Given TID MISSAEL Fentanyl 25 mcg 03/02/17 19:19 Sublimaze Injection - IVPUSH 03/05/17 19:20 [id number] PRN PAIN Ferrous Sulfate 325 mg 02/26/17 10:00 03/03/17 11:05 Feosol - PO 325 mg BID MISSAEL Administration Gabapentin 300 mg 02/26/17 06:00 03/03/17 14:38 Neurontin - PO 300 mg TID MISSAEL Administration Heparin Sodium (Porcine) 5,000 unit 02/26/17 06:00 03/03/17 14:37 Heparin - SQ 5,000 unit TID MISSAEL Administration Sodium Chloride 1,000 mls @ 75 mls/hr 02/26/17 01:45 03/03/17 16:41 Normal Saline - IV 75 mls/hr ASDIR MISSAEL Administration Piperacillin Sod/Tazobactam 50 mls @ 100 mls/hr 02/26/17 11:15 03/03/17 11:01 Sod 3.375 gm/ Dextrose IVPB 100 mls/hr Q8H-IV MISSAEL Administration Vancomycin HCl 750 mg/ 250 mls @ 250 mls/hr 03/03/17 10:00 03/03/17 10:18 Dextrose IVPB 250 mls/hr DAILY MISSAEL Administration Protocol Insulin Aspart 1 vial 02/26/17 07:00 03/03/17 16:46 Novolog Vial Sliding Scale - SQ Not Given ACHS [facility] Protocol Insulin Detemir 22 units 02/26/17 22:00 03/02/17 21:35 Levemir Vial SQ 22 units HS MISSAEL Administration Metoprolol Succinate 25 mg 02/26/17 10:00 03/03/17 11:05 Toprol Xl - PO 25 mg DAILY MISSAEL Administration Nicotine Polacrilex 2 mg 02/26/17 01:46 Nicorette Gum - BUC Q2H PRN NICOTINE REPLACEMENT RX Non-Formulary Medication 7 mg 02/26/17 10:00 Memantine Hcl [Namenda Xr] PO DAILY MISSAEL Oxycodone HCl 5 mg 02/26/17 01:43 03/03/17 01:03 Roxicodone - PO 5 mg Q4H PRN Administration PAIN Pantoprazole Sodium 40 mg 02/26/17 10:00 03/03/17 11:04 Protonix - PO 40 mg DAILY MISSAEL Administration Pramipexole Dihydrochloride 0.5 mg 02/26/17 10:00 03/03/17 11:04 Mirapex - PO 0.5 mg BID MISSAEL Administration Fluticasone/Salmeterol 1 puff 02/26/17 10:00 03/03/17 11:02 Advair 100mcg/50mcg - IH 1 puff BID MISSAEL Administration Sitagliptin Phosphate 50 mg 02/26/17 07:00 03/03/17 06:41 Januvia - PO 50 mg DAILY@0700 MISSAEL Administration Solifenacin 5 mg 02/26/17 10:00 03/03/17 11:04 Vesicare - PO 5 mg DAILY MISSAEL Administration Tamsulosin HCl 0.4 mg 02/26/17 08:30 03/03/17 11:04 Flomax - PO 0.4 mg DAILY@0830 MISSAEL Administration Trazodone HCl 50 mg 02/26/17 22:00 03/02/17 21:34 Desyrel - PO 50 mg HS MISSAEL Administration ASSESSMENT/PLAN: 66 yo M with PMH COPD, O2 dependent, asthma, sleep apnea, pulmonary fibrosis, CAD, CVA, HTN, HLD, GI bleed, DM with PVD, CKD & neuropathy, chronic R foot wound presented to the ED with fever and pain in right foot. #Sepsis secondary to MRSA bacteremia and MRSA foot infection -Patient has been afebrile -Echo- unremarkable for any vegetations -MRI reveals osteomyelitis of the right foot -Repeat BCx negative to date -Day 6 of Zosyn 3.375g , Vancomycin 750mg per ID -F/u Wound cx from debridement -Pain control/Wound Care -Vascular surgery/ID on board #JESÚS on CKD, secondary to sepsis -Improved -renal U/s negative -IVF -Avoid nephrotoxic agents #DM -BGM -ISS -Levemir 22 units -Januvia 50 mg daily #COPD -On home O2 3L -Continue Aclidinium bromide 1 puff BID -Continue advair 1 puff #History of gout -Continue allopurinol 300 mg daily #BPH -Continue Flomax 0.4 mg daily #FEN/GI -IVF 75 cc/hr -electrolytes wnl -Diabetic diet, NPO after midnight #PPx -DVT: Heparin 5000 units sq TID -GI: protonix 40 mg by mouth daily Visit type - Emergency Visit Emergency Visit: No - New Patient This patient is new to me today: No - Critical Care Critical Care patient: No
[2017-03-03] MEDS: traZODone HCL 50 MG TABLET (FP) PO SCH (22:11)
[2017-03-03] MEDS: INSULIN DETEMIR 100 UNITS/ML MDV SQ SCH (22:12)
[2017-03-03] MEDS: ATORVASTATIN CA 20 MG TABLET (FP) PO SCH (22:12)
[2017-03-03] MEDS: DOCUSATE SODIUM 100 MG CAPSULE (FP) PO SCH (22:21)
[2017-03-04] MEDS ORDERED: DEXTROSE 5%-WATER - 50 ML IVPB ONE ×3 (02:53→14:51)
[2017-03-04] MEDS ORDERED: PIPERACILLIN/TAZOBACTAM 3.375 GM VIAL IVPB ONE ×3 (02:53→14:51)
[2017-03-04] MEDS: SODIUM CHLORIDE 1,000 ML IV SCH ×3 (02:56→22:58)
[2017-03-04] MEDS: PIPERACILLIN/TAZOB 3.375 GM 3.375 GM in DEXTROSE 5%-WATER - 50 ML IVPB SCH ×3 (02:56→17:32)
[2017-03-04] MEDS: oxyCODONE HCL 5 MG TABLET PO PRN ×2 (03:09→22:57)
[2017-03-04] MEDS: INSULIN SLIDING SCALE (NOVOLOG) 1 VIAL SQ SCH ×4 (06:33→22:41)
[2017-03-04] MEDS: ERYTHROMYCIN 0.5% OPHTHALMIC OINTMENT 3.5 GM TUBE OD SCH ×3 (06:33→22:43)
[2017-03-04] MEDS: sitaGLIPtin PHOSPHATE 50 MG TABLET PO SCH (06:34)
[2017-03-04] MEDS: HEPARIN NA (PORCINE) 5,000 UNITS/ML 1ML VIAL SQ SCH ×3 (06:34→22:46)
[2017-03-04] MEDS: GABAPENTIN 300 MG CAPSULE (FP) PO SCH ×3 (06:34→22:52)
[2017-03-04 08:14] LABS: BASOPHIL 1.1 % (0-2.0); EOSINOPHIL 3.9 % (0-4.5); MCH 21.6 pg (25.7-33.7); MCHC 30.9 g/dl (32.0-35.9); MEAN CELL VOLUME 69.9 fl (80-96); MEAN PLT VOLUME 9.7 fl (7.5-11.1); NEUTROPHILS 63.7 % (42.8-82.8); PLATELET COUNT 216 K/MM3 (134-434); RDW 18.7 % (11.9-15.9); WHITE BLOOD COUNT 6.7 K/mm3 (4.0-10.0)
[2017-03-04 08:31] LABS: ANION GAP 6 (8-16); CO2 28 mmol/L (21-32); CREATININE 1.4 mg/dL (0.7-1.3); GLUCOSE,RANDOM 104 mg/dL (74-106)
[2017-03-04] MEDS ORDERED: PT OWN MED DRAWER 7, Y5N ONE ×3 (08:35→21:20)
[2017-03-04] MEDS: TAMSULOSIN HCL 0.4 MG CAP.ER.24H (FP) PO SCH (09:03)
[2017-03-04] MEDS: CLOPIDOGREL BISULFATE 75 MG TABLET (FP) PO SCH (09:04)
[2017-03-04] MEDS: PRAMIPEXOLE DIHYDROCHLORIDE 0.5 MG TABLET PO SCH ×2 (09:04→22:45)
[2017-03-04] MEDS: PANTOPRAZOLE 40 MG TABLET (FP) PO SCH (09:04)
[2017-03-04] MEDS: amLODIPine BESYLATE 5 MG TABLET (FP) PO SCH (09:04)
[2017-03-04] MEDS: METOPROLOL SUCCINATE 25 MG TAB.SR.24H (FP) PO SCH (09:04)
[2017-03-04] MEDS: FERROUS SO4 325 MG TABLET (FP) PO SCH ×2 (09:04→22:43)
[2017-03-04] MEDS: FLUTICASONE/SALMETEROL 100 MCG/50 MCG DISKUS IH SCH ×2 (09:04→22:42)
[2017-03-04] MEDS: ACLIDINIUM BROMIDE 400 MCG/INH AERO.POWD IH SCH ×2 (09:05→22:42)
[2017-03-04] MEDS: ALLOPURINOL 300 MG TABLET (FP) PO SCH (09:05)
[2017-03-04] MEDS: SOLIFENACIN SUCCINATE 5 MG TAB (FP) PO SCH (09:05)
[2017-03-04] MEDS: VANCOMYCIN 750 MG in DEXTROSE 5%-WATER - 250 ML IVPB SCH (10:25)
--- NOTE | 2017-03-04 11:37 | PN ---
Physical Exam: SUBJECTIVE: Patient seen and examined No acute events overnight. Patient denies any pain this morning. OBJECTIVE: Vital Signs Period Temp Pulse Resp BP Sys/Cintron Pulse Ox Last 24 Hr 98 F-99 F 65-78 17-22 126-159/71-90 92-96 GENERAL: Awake, alert, and fully oriented, in no acute distress. HEAD: Normal with no signs of trauma. EYES: Pupils equal, round and reactive to light, extraocular movements intact, sclera anicteric, conjunctiva clear. No lid lag. EARS, NOSE, THROAT: Ears normal, nares patent, oropharynx clear without exudates. Moist mucous membranes. NECK: Normal range of motion, supple without lymphadenopathy, JVD, or masses. LUNGS: Breath sounds equal, clear to auscultation bilaterally. No wheezes, and no crackles. No accessory muscle use. HEART: Regular rate and rhythm, normal S1 and S2 without murmur, rub or gallop. ABDOMEN: Soft, nontender, not distended, normoactive bowel sounds, no guarding, no rebound, no masses. No hepatomegaly or splenomegaly. MUSCULOSKELETAL: Normal range of motion at all joints. No bony deformities or tenderness. No CVA tenderness. left foot 2nd toe amputation UPPER EXTREMITIES: 2+ pulses, warm, well-perfused. No cyanosis. No clubbing. No peripheral edema. LOWER EXTREMITIES:Right foot wound appears to be healing well with clean edges. Packing was in place. Foot rewrapped this morning. PSYCHIATRIC: Cooperative. Good eye contact. Appropriate mood and affect. SKIN: Warm, dry, normal turgor, no rashes or lesions noted, normal capillary refill. Laboratory Results - last 24 hr 03/03/17 03/03/17 03/03/17 06:39 11:18 16:45 WBC RBC Hgb Hct MCV MCH MCHC RDW Plt Count MPV Neutrophils % Lymphocytes % Monocytes % Eosinophils % Basophils % Sodium Potassium Chloride Carbon Dioxide Anion Gap BUN Creatinine POC Glucometer 106 359 72 Random Glucose Calcium Random Vancomycin 03/03/17 03/04/17 03/04/17 21:27 06:10 06:10 WBC 6.7 RBC 4.45 Hgb 9.6 L Hct 31.1 L MCV 69.9 L MCH 21.6 L MCHC 30.9 L RDW 18.7 H Plt Count 216 MPV 9.7 Neutrophils % 63.7 Lymphocytes % 21.0 D Monocytes % 10.3 H Eosinophils % 3.9 Basophils % 1.1 Sodium Potassium Chloride Carbon Dioxide Anion Gap BUN Creatinine POC Glucometer 176 Random Glucose Calcium Random Vancomycin 15.854 03/04/17 03/04/17 03/04/17 06:10 06:32 10:48 WBC RBC Hgb Hct MCV MCH MCHC RDW Plt Count MPV Neutrophils % Lymphocytes % Monocytes % Eosinophils % Basophils % Sodium 141 Potassium 4.2 Chloride 107 Carbon Dioxide 28 Anion Gap 6 L BUN 15 Creatinine 1.4 H POC Glucometer 115 156 Random Glucose 104 Calcium 8.0 L Random Vancomycin Active Medications Generic Name Dose Route Start Last Admin Trade Name Freq PRN Reason Stop Dose Admin Acetaminophen 650 mg 02/26/17 01:43 03/02/17 10:27 Tylenol - PO 650 mg Q6H PRN Administration FEVER OR PAIN Aclidinium [place] 1 puff 02/26/17 10:00 03/04/17 09:05 Tudorza - IH 1 puff BID MISSAEL Administration Albuterol/Ipratropium 1 amp 02/26/17 01:46 03/01/17 11:15 Duoneb - NEB 1 amp Q4H PRN Administration SHORTNESS OF BREATH Allopurinol 300 mg 02/26/17 10:00 03/04/17 09:05 Zyloprim - PO 300 mg DAILY MISSAEL Administration Amlodipine Besylate 5 mg 02/26/17 10:00 03/04/17 09:04 Norvasc - PO 5 mg DAILY MISSAEL Administration Artificial Tears 1 drop 02/26/17 07:20 03/01/17 21:54 Artificial Tears OU 1 drop DAILY PRN Administration DRY EYES Atorvastatin Calcium 20 mg 02/26/17 22:00 03/03/17 22:12 Lipitor - PO 20 mg HS MISSAEL Administration Clopidogrel Bisulfate 75 mg 02/26/17 10:00 03/04/17 09:04 Plavix - PO 75 mg DAILY MISSAEL Administration Collagenase 1 applic 02/26/17 10:00 03/03/17 11:06 Santyl - TP 1 applic DAILY MISSAEL Administration Docusate Sodium 300 mg 02/26/17 22:00 03/03/17 22:21 Colace - PO Not Given HS MISSAEL Erythromycin 1 applic 02/26/17 06:00 03/04/17 06:33 Erythromycin 0.5% Eye Ointment OD Not Given TID [facility] Fentanyl 25 mcg 03/02/17 19:19 Sublimaze Injection - IVPUSH 03/05/17 19:20 [id number] PRN PAIN Ferrous Sulfate 325 mg 02/26/17 10:00 03/04/17 09:04 Feosol - PO 325 mg BID MISSAEL Administration Gabapentin 300 mg 02/26/17 06:00 03/04/17 06:34 Neurontin - PO 300 mg TID MISSAEL Administration Heparin Sodium (Porcine) 5,000 unit 02/26/17 06:00 03/04/17 06:34 Heparin - SQ 5,000 unit TID MISSAEL Administration Sodium Chloride 1,000 mls @ 75 mls/hr 02/26/17 01:45 03/04/17 08:11 Normal Saline - IV 75 mls/hr ASDIR MISSAEL Administration Piperacillin Sod/Tazobactam 50 mls @ 100 mls/hr 02/26/17 11:15 03/04/17 09:06 Sod 3.375 gm/ Dextrose IVPB 100 mls/hr Q8H-IV MISSAEL Administration Vancomycin HCl 750 mg/ 250 mls @ 250 mls/hr 03/03/17 10:00 03/04/17 10:25 Dextrose IVPB 250 mls/hr DAILY MISSAEL Administration Protocol Insulin Aspart 1 vial 02/26/17 07:00 03/04/17 10:52 Novolog Vial Sliding Scale - SQ 2 unit ACHS [facility] Administration Protocol Insulin Detemir 22 units 02/26/17 22:00 03/03/17 22:12 Levemir Vial SQ 22 units HS MISSAEL Administration Metoprolol Succinate 25 mg 02/26/17 10:00 03/04/17 09:04 Toprol Xl - PO 25 mg DAILY MISSAEL Administration Nicotine Polacrilex 2 mg 02/26/17 01:46 Nicorette Gum - BUC Q2H PRN NICOTINE REPLACEMENT RX Non-Formulary Medication 7 mg 02/26/17 10:00 Memantine Hcl [Namenda Xr] PO DAILY [facility] Oxycodone HCl 5 mg 02/26/17 01:43 03/04/17 03:09 Roxicodone - PO 5 mg Q4H PRN Administration PAIN Pantoprazole Sodium 40 mg 02/26/17 10:00 03/04/17 09:04 Protonix - PO 40 mg DAILY MISSAEL Administration Pramipexole Dihydrochloride 0.5 mg 02/26/17 10:00 03/04/17 09:04 Mirapex - PO 0.5 mg BID MISSAEL Administration Fluticasone/Salmeterol 1 puff 02/26/17 10:00 03/04/17 09:04 Advair 100mcg/50mcg - IH 1 puff BID MISSAEL Administration Sitagliptin Phosphate 50 mg 02/26/17 07:00 03/04/17 06:34 Januvia - PO 50 mg DAILY@0700 MISSAEL Administration Solifenacin 5 mg 02/26/17 10:00 03/04/17 09:05 Vesicare - PO 5 mg DAILY MISSAEL Administration Tamsulosin HCl 0.4 mg 02/26/17 08:30 03/04/17 09:03 Flomax - PO 0.4 mg DAILY@0830 MISSAEL Administration Trazodone HCl 50 mg 02/26/17 22:00 03/03/17 22:11 Desyrel - PO 50 mg HS MISSAEL Administration ASSESSMENT/PLAN: 66 yo M with PMH COPD, O2 dependent, asthma, sleep apnea, pulmonary fibrosis, CAD, CVA, HTN, HLD, GI bleed, DM with PVD, CKD & neuropathy, chronic R foot wound presented to the ED with fever and pain in right foot. #Sepsis secondary to MRSA bacteremia and MRSA foot infection -Patient has been afebrile -Echo- unremarkable for any vegetations -MRI reveals osteomyelitis of the right foot -Repeat BCx negative to date -Day 7 of Zosyn 3.375g , Vancomycin 750mg per ID -F/u Wound cx from debridement -Pain control and Wound Care w/ santyl wound gel -Vascular surgery/ID on board #JESÚS on CKD, secondary to sepsis -Improved -renal U/s negative -IVF -Avoid nephrotoxic agents #DM -BGM -ISS -Levemir 22 units -Januvia 50 mg daily #COPD -On home O2 3L -Continue Aclidinium bromide 1 puff BID -Continue advair 1 puff BID #History of gout -Continue allopurinol 300 mg daily #BPH -Continue Flomax 0.4 mg daily #Hx of microcytic anemia -Hgb is stable #Hx of CAD -continue Toporol XL 25 mg po daily -Continue Lipitor 20 mg po hs -Continue Plavix 75 mg po daily #FEN/GI -IVF 75 cc/hr -electrolytes wnl -Diabetic diet #PPx -DVT: Heparin 5000 units sq TID -GI: protonix 40 mg by mouth daily Dispo: Patient will likely need PICC for terminal clerk IV abx, dependent on wound cultures. Visit type - Emergency Visit Emergency Visit: No - New Patient This patient is new to me today: No - Critical Care Critical Care patient: No
[2017-03-04] MEDS: COLLAGENASE CLOSTRIDIUM HIST. 30 GRAMS TUBE TP SCH (12:21)
--- NOTE | 2017-03-04 14:43 | PN ---
Progress Note (short form) - Note Progress Note: s/p debridement Vital Signs Period Temp Pulse Resp BP Sys/Cintron Pulse Ox Last 24 Hr 98 F-99 F 65-78 17-22 126-159/71-90 92-96 cor-rrr lungs clear abd soft,nt ext foot wrapped CBC, BMP 03/04/17 06:10 03/04/17 06:10 Microbiology 03/02/17 20:00 Gram Stain - Final Wound-Other Wound Culture - Preliminary Lactose Fermenting Neg Bacilli Presumptive Mrsa (Pbp2a Pos) Diphtheroid/Corynebacterium 02/28/17 06:40 Blood Culture - Preliminary Blood - Peripheral Venous NO GROWTH OBTAINED AFTER 96 HOURS, INCUBATION TO CONTINUE FOR 1 DAYS. 02/28/17 06:40 Blood Culture - Preliminary Blood - Peripheral Venous NO GROWTH OBTAINED AFTER 96 HOURS, INCUBATION TO CONTINUE FOR 1 DAYS. MRI foot- osteo, ?abscess echo- no vegetation a/p MRSA bacteremia awaiting operative cultures- hoping for a qday regimen check vancomycin tough before dose on Tuesday renal function improving- vancomycin 1 gram daily to start today vanco/zosyn for diabetic foot ulcer- f/u culture results DM contact isolation for MRSA Problem List - Problems (1) Fever Code(s): R50.9 - FEVER, UNSPECIFIED Qualifiers: Fever type: unspecified Qualified Code(s): R50.9 - Fever, unspecified (2) Wound, open, foot Code(s): S91.309A - UNSPECIFIED OPEN WOUND, UNSPECIFIED FOOT, INITIAL ENCOUNTER Qualifiers: Encounter type: initial encounter Laterality: right Qualified Code( s): S91.301A - Unspecified open wound, right foot, initial encounter (3) Acute renal failure Code(s): N17.9 - ACUTE KIDNEY FAILURE, UNSPECIFIED Qualifiers: Acute renal failure type: unspecified Qualified Code(s): N17.9 - Acute kidney failure, unspecified (4) Diabetes mellitus type 2 with peripheral artery disease Code(s): E11.51 - TYPE 2 DIABETES W DIABETIC PERIPHERAL ANGIOPATH W/O GANGRENE (5) MRSA (methicillin resistant Staphylococcus aureus) Code(s): A49.02 - METHICILLIN RESIS STAPH INFECTION, UNSP SITE
[2017-03-04 14:54] LABS: ANISOCYTOSIS 2+; HYPOCHROMIA 1+; MICROCYTOSIS 1+
--- NOTE | 2017-03-04 15:06 | PN ---
Teaching Attending Note Name of Resident: Miguelito Ray ATTENDING PHYSICIAN STATEMENT I saw and evaluated the patient. I reviewed the resident's note and discussed the case with the resident. I agree with the resident's findings and plan as documented. SUBJECTIVE: OBJECTIVE: Vital Signs Period Temp Pulse Resp BP Sys/Cintron Pulse Ox Last 24 Hr 98 F-99 F 65-78 17-22 126-159/71-90 92-96 HEART: S1S2, RRR LUNGS: Clear ABDOMEN: Soft, non-tender, non-distended, normal BS EXTREMITIES: Right foot wrapped Current Medications Generic Name Dose Route Start Last Admin Trade Name Freq PRN Reason Stop Dose Admin Acetaminophen 650 mg 02/26/17 01:43 03/02/17 10:27 Tylenol - PO 650 mg Q6H PRN Administration FEVER OR PAIN Aclidinium [place] 1 puff 02/26/17 10:00 03/04/17 09:05 Tudorza - IH 1 puff BID MISSAEL Administration Albuterol/Ipratropium 1 amp 02/26/17 01:46 03/01/17 11:15 Duoneb - NEB 1 amp Q4H PRN Administration SHORTNESS OF BREATH Allopurinol 300 mg 02/26/17 10:00 03/04/17 09:05 Zyloprim - PO 300 mg DAILY MISSAEL Administration Amlodipine Besylate 5 mg 02/26/17 10:00 03/04/17 09:04 Norvasc - PO 5 mg DAILY MISSAEL Administration Artificial Tears 1 drop 02/26/17 07:20 03/01/17 21:54 Artificial Tears OU 1 drop DAILY PRN Administration DRY EYES Atorvastatin Calcium 20 mg 02/26/17 22:00 03/03/17 22:12 Lipitor - PO 20 mg HS MISSAEL Administration Clopidogrel Bisulfate 75 mg 02/26/17 10:00 03/04/17 09:04 Plavix - PO 75 mg DAILY MISSAEL Administration Collagenase 1 applic 02/26/17 10:00 03/04/17 12:21 Santyl - TP Not Given DAILY MISSAEL Docusate Sodium 300 mg 02/26/17 22:00 03/03/17 22:21 Colace - PO Not Given HS MISSAEL Erythromycin 1 applic 02/26/17 06:00 03/04/17 14:59 Erythromycin 0.5% Eye Ointment OD Not Given TID MISSAEL Fentanyl 25 mcg 03/02/17 19:19 Sublimaze Injection - IVPUSH 03/05/17 19:20 [id number] PRN PAIN Ferrous Sulfate 325 mg 02/26/17 10:00 03/04/17 09:04 Feosol - PO 325 mg BID MISSAEL Administration Gabapentin 300 mg 02/26/17 06:00 03/04/17 14:59 Neurontin - PO 300 mg TID MISSAEL Administration Heparin Sodium (Porcine) 5,000 unit 02/26/17 06:00 03/04/17 14:59 Heparin - SQ 5,000 unit TID MISSAEL Administration Sodium Chloride 1,000 mls @ 75 mls/hr 02/26/17 01:45 03/04/17 08:11 Normal Saline - IV 75 mls/hr ASDIR MISSAEL Administration Piperacillin Sod/Tazobactam 50 mls @ 100 mls/hr 02/26/17 11:15 03/04/17 17:32 Sod 3.375 gm/ Dextrose IVPB 100 mls/hr Q8H-IV MISSAEL Administration Vancomycin HCl 750 mg/ 250 mls @ 250 mls/hr 03/03/17 10:00 03/04/17 10:25 Dextrose IVPB 250 mls/hr DAILY MISSAEL Administration Protocol Insulin Aspart 1 vial 02/26/17 07:00 03/04/17 17:31 Novolog Vial Sliding Scale - SQ Not Given ACHS [facility] Protocol Insulin Detemir 22 units 02/26/17 22:00 03/03/17 22:12 Levemir Vial SQ 22 units HS [facility] Administration Metoprolol Succinate 25 mg 02/26/17 10:00 03/04/17 09:04 Toprol Xl - PO 25 mg DAILY [facility] Administration Nicotine Polacrilex 2 mg 02/26/17 01:46 Nicorette Gum - BUC Q2H PRN NICOTINE REPLACEMENT RX Non-Formulary Medication 7 mg 02/26/17 10:00 Memantine Hcl [Namenda Xr] PO DAILY [facility] Oxycodone HCl 5 mg 02/26/17 01:43 03/04/17 03:09 Roxicodone - PO 5 mg Q4H PRN Administration PAIN Pantoprazole Sodium 40 mg 02/26/17 10:00 03/04/17 09:04 Protonix - PO 40 mg DAILY MISSAEL Administration Pramipexole Dihydrochloride 0.5 mg 02/26/17 10:00 03/04/17 09:04 Mirapex - PO 0.5 mg BID MISSAEL Administration Fluticasone/Salmeterol 1 puff 02/26/17 10:00 03/04/17 09:04 Advair 100mcg/50mcg - IH 1 puff BID MISSAEL Administration Sitagliptin Phosphate 50 mg 02/26/17 07:00 03/04/17 06:34 Januvia - PO 50 mg DAILY@0700 MISSAEL Administration Solifenacin 5 mg 02/26/17 10:00 03/04/17 09:05 Vesicare - PO 5 mg DAILY MISSAEL Administration Tamsulosin HCl 0.4 mg 02/26/17 08:30 03/04/17 09:03 Flomax - PO 0.4 mg DAILY@0830 MISSAEL Administration Trazodone HCl 50 mg 02/26/17 22:00 03/03/17 22:11 Desyrel - PO 50 mg HS MISSAEL Administration ASSESSMENT AND PLAN: This is a 65-year-old man with a history of COPD, asthma, SAMMY, DM, CAD, CVA, HTN , hyperlipidemia, CKD, PAD, gout who presented to the ER with fever. 1. Sepsis secondary to MRSA bacteremia and possible abscess/osteomyelitis of right foot - Wound culture (02/25) grew MRSA, Klebsiella, Pseudomonas - Repeat blood cultures negative after 72 hours - No evidence of endocarditis on echo - Continue Zosyn, Vancomycin - Continue wound care - s/p excisional debridement of right foot skin and subcutaneous tissue 03/02 - culture growing MRSA, gram negative bacilli, Diphtheroid 2. Acute kidney injury - Improved 3. Stage 3 CKD 4. Type 2 DM - Continue Januvia, Levemir, Novolog sliding scale 5. COPD/asthma/pulmonary fibrosis - Stable - Continue Tudorza, Advair, DuoNeb as needed 6. SAMMY 7. Chronic hypoxic respiratory failure - Continue oxygen 8. Microcytic anemia - Hemoglobin is stable 9. HTN - Continue Norvasc, Toprol XL - Lasix, Cozaar held secondary to JESÚS 10. PAD, history of SFA stent - Continue Plavix 11. History of CVA 12. Hyperlipidemia - Continue Lipitor 13. History of gout - Continue Allopurinol 14. BPH - Continue Flomax 15. CAD - Continue Toprol XL, Lipitor, Plavix
[2017-03-04] MEDS: traZODone HCL 50 MG TABLET (FP) PO SCH (22:43)
[2017-03-04] MEDS: DOCUSATE SODIUM 100 MG CAPSULE (FP) PO SCH (22:43)
[2017-03-04] MEDS: ATORVASTATIN CA 20 MG TABLET (FP) PO SCH (22:45)
[2017-03-04] MEDS: INSULIN DETEMIR 100 UNITS/ML MDV SQ SCH (22:47)
[2017-03-05] MEDS ORDERED: DEXTROSE 5%-WATER - 50 ML IVPB ONE ×3 (01:29→18:25)
[2017-03-05] MEDS ORDERED: PIPERACILLIN/TAZOBACTAM 3.375 GM VIAL IVPB ONE ×3 (01:29→18:25)
[2017-03-05] MEDS: PIPERACILLIN/TAZOB 3.375 GM 3.375 GM in DEXTROSE 5%-WATER - 50 ML IVPB SCH ×3 (01:34→18:51)
[2017-03-05] MEDS: SODIUM CHLORIDE 1,000 ML IV SCH ×2 (01:46→16:22)
[2017-03-05] MEDS: ALBUTEROL SO4 2.5/IPRATROPIUM 0.5 INH SOL 3 ML VIAL.NEB. NEB PRN (06:20)
[2017-03-05] MEDS: INSULIN SLIDING SCALE (NOVOLOG) 1 VIAL SQ SCH ×4 (06:29→22:00)
[2017-03-05] MEDS: ERYTHROMYCIN 0.5% OPHTHALMIC OINTMENT 3.5 GM TUBE OD SCH ×3 (06:30→21:49)
[2017-03-05] MEDS: GABAPENTIN 300 MG CAPSULE (FP) PO SCH ×3 (06:31→21:49)
[2017-03-05] MEDS: sitaGLIPtin PHOSPHATE 50 MG TABLET PO SCH (06:31)
[2017-03-05] MEDS: HEPARIN NA (PORCINE) 5,000 UNITS/ML 1ML VIAL SQ SCH ×3 (06:31→21:51)
[2017-03-05] MEDS: oxyCODONE HCL 5 MG TABLET PO PRN (06:36)
[2017-03-05 07:42] LABS: MCH 21.3 pg (25.7-33.7); MCHC 30.3 g/dl (32.0-35.9); MEAN CELL VOLUME 70.4 fl (80-96); MEAN PLT VOLUME 8.8 fl (7.5-11.1); NEUTROPHILS 62.5 % (42.8-82.8); PLATELET COUNT 242 K/MM3 (134-434); RDW 19.5 % (11.9-15.9); WHITE BLOOD COUNT 6.4 K/mm3 (4.0-10.0)
[2017-03-05 08:09] LABS: ANION GAP 9 (8-16); CALCIUM 8.8 mg/dL (8.5-10.1); CO2 27 mmol/L (21-32); CREATININE 1.3 mg/dL (0.7-1.3); GLUCOSE,RANDOM 83 mg/dL (74-106)
--- NOTE | 2017-03-05 09:01 | PN ---
Teaching Attending Note Name of Resident: Miguelito Ray ATTENDING PHYSICIAN STATEMENT I saw and evaluated the patient. I reviewed the resident's note and discussed the case with the resident. I agree with the resident's findings and plan as documented. SUBJECTIVE: Patient has no complaints. OBJECTIVE: Vital Signs Period Temp Pulse Resp BP Sys/Cintron Pulse Ox Last 24 Hr 98.2 F-98.7 F 66-84 20-20 126-171/71-91 92-92 HEART: S1S2, RRR LUNGS: Clear ABDOMEN: Soft, non-tender, non-distended, normal BS EXTREMITIES: Right foot wound clean and dry ASSESSMENT AND PLAN: This is a 65-year-old man with a history of COPD, asthma, SAMMY, DM, CAD, CVA, HTN , hyperlipidemia, CKD, PAD, gout who presented to the ER with fever. 1. Sepsis secondary to MRSA bacteremia and possible abscess/osteomyelitis of right foot - Wound culture (02/25) grew MRSA, Klebsiella, Pseudomonas - Repeat blood cultures (02/28) negative after 5 days - No evidence of endocarditis on echo - s/p excisional debridement of right foot skin and subcutaneous tissue 03/02 - culture growing MRSA, gram negative bacilli, Diphtheroid - Continue wound care - Continue Zosyn, Vancomycin until culture results final 2. Acute kidney injury - Improved 3. Stage 3 CKD 4. Type 2 DM - Continue Januvia, Levemir, Novolog sliding scale 5. Chronic hypoxic respiratory failure secondary to COPD/asthma/pulmonary fibrosis/SAMMY - Stable - Continue Tudorza, Advair, DuoNeb as needed, oxygen 6. Microcytic anemia - Hemoglobin is stable 7. HTN - Continue Norvasc, Toprol XL - Lasix, Cozaar held secondary to JESÚS - Resume Cozaar and monitor creatinine 8. PAD, history of SFA stent - Continue Plavix 9. History of CVA 10. Hyperlipidemia - Continue Lipitor 11. History of gout - Continue Allopurinol 12. BPH - Continue Flomax 13. CAD - Continue Toprol XL, Lipitor, Plavix
[2017-03-05] MEDS: TAMSULOSIN HCL 0.4 MG CAP.ER.24H (FP) PO SCH (09:12)
[2017-03-05] MEDS ORDERED: PT OWN MED DRAWER 7, Y5N ONE ×3 (10:13→21:16)
[2017-03-05] MEDS: ACLIDINIUM BROMIDE 400 MCG/INH AERO.POWD IH SCH ×2 (10:33→21:51)
[2017-03-05] MEDS: FLUTICASONE/SALMETEROL 100 MCG/50 MCG DISKUS IH SCH ×2 (10:34→21:48)
[2017-03-05] MEDS: FERROUS SO4 325 MG TABLET (FP) PO SCH ×2 (10:35→21:49)
[2017-03-05] MEDS: amLODIPine BESYLATE 5 MG TABLET (FP) PO SCH (10:36)
[2017-03-05] MEDS: CLOPIDOGREL BISULFATE 75 MG TABLET (FP) PO SCH (10:37)
[2017-03-05] MEDS: PANTOPRAZOLE 40 MG TABLET (FP) PO SCH (10:37)
[2017-03-05] MEDS: COLLAGENASE CLOSTRIDIUM HIST. 30 GRAMS TUBE TP SCH (10:37)
[2017-03-05] MEDS: METOPROLOL SUCCINATE 25 MG TAB.SR.24H (FP) PO SCH (10:39)
[2017-03-05] MEDS: VANCOMYCIN 750 MG in DEXTROSE 5%-WATER - 250 ML IVPB SCH (10:40)
[2017-03-05] MEDS: ALLOPURINOL 300 MG TABLET (FP) PO SCH (10:41)
[2017-03-05] MEDS: PRAMIPEXOLE DIHYDROCHLORIDE 0.5 MG TABLET PO SCH ×2 (10:48→21:50)
[2017-03-05] MEDS: SOLIFENACIN SUCCINATE 5 MG TAB (FP) PO SCH (10:48)
--- NOTE | 2017-03-05 12:05 | PN ---
Physical Exam: SUBJECTIVE: Patient seen and examined No acute events overnight. Patient denies any pain this morning. OBJECTIVE: Vital Signs Period Temp Pulse Resp BP Sys/Cintron Pulse Ox Last 24 Hr 98.2 F-98.7 F 71-84 20-20 148-171/74-91 92 GENERAL: Awake, alert, and fully oriented, in no acute distress. HEAD: Normal with no signs of trauma. EYES: Pupils equal, round and reactive to light, extraocular movements intact, sclera anicteric, conjunctiva clear. No lid lag. EARS, NOSE, THROAT: Ears normal, nares patent, oropharynx clear without exudates. Moist mucous membranes. NECK: Normal range of motion, supple without lymphadenopathy, JVD, or masses. LUNGS: Breath sounds equal, clear to auscultation bilaterally. No wheezes, and no crackles. No accessory muscle use. HEART: Regular rate and rhythm, normal S1 and S2 without murmur, rub or gallop. ABDOMEN: Soft, nontender, not distended, normoactive bowel sounds, no guarding, no rebound, no masses. No hepatomegaly or splenomegaly. MUSCULOSKELETAL: Normal range of motion at all joints. No bony deformities or tenderness. No CVA tenderness. left foot 2nd toe amputation UPPER EXTREMITIES: 2+ pulses, warm, well-perfused. No cyanosis. No clubbing. No peripheral edema. LOWER EXTREMITIES:Right foot wound appears to be healing well with clean edges. Packing in place. Foot rewrapped this morning. PSYCHIATRIC: Cooperative. Good eye contact. Appropriate mood and affect. SKIN: Warm, dry, normal turgor, no rashes or lesions noted, normal capillary refill. Laboratory Results - last 24 hr 03/04/17 03/04/17 03/04/17 06:10 17:29 22:40 WBC 6.7 RBC 4.45 Hgb 9.6 L Hct 31.1 L MCV 69.9 L MCH 21.6 L MCHC 30.9 L RDW 18.7 H Plt Count 216 MPV 9.7 Neutrophils % 63.7 Lymphocytes % 21.0 D Monocytes % 10.3 H Eosinophils % 3.9 Basophils % 1.1 Hypochromic-Microcytic 1+ Anisocytosis 2+ Microcytosis 1+ Macrocytosis Few Sodium Potassium Chloride Carbon Dioxide Anion Gap BUN Creatinine POC Glucometer 122 104 Random Glucose Calcium Random Vancomycin 03/05/17 03/05/17 03/05/17 05:50 06:00 06:00 WBC 6.4 RBC 4.90 Hgb 10.4 L Hct 34.5 L MCV 70.4 L MCH 21.3 L MCHC 30.3 L RDW 19.5 H Plt Count 242 MPV 8.8 Neutrophils % 62.5 Lymphocytes % 23.9 Monocytes % 8.6 Eosinophils % 4.0 Basophils % 1.0 Hypochromic-Microcytic Anisocytosis Microcytosis Macrocytosis Sodium Potassium Chloride Carbon Dioxide Anion Gap BUN Creatinine POC Glucometer 88 Random Glucose Calcium Random Vancomycin 15.378 03/05/17 06:00 WBC RBC Hgb Hct MCV MCH MCHC RDW Plt Count MPV Neutrophils % Lymphocytes % Monocytes % Eosinophils % Basophils % Hypochromic-Microcytic Anisocytosis Microcytosis Macrocytosis Sodium 139 Potassium 4.3 Chloride 103 Carbon Dioxide 27 Anion Gap 9 BUN 14 Creatinine 1.3 POC Glucometer Random Glucose 83 D Calcium 8.8 Random Vancomycin Active Medications Generic Name Dose Route Start Last Admin Trade Name Freq PRN Reason Stop Dose Admin Acetaminophen 650 mg 02/26/17 01:43 03/02/17 10:27 Tylenol - PO 650 mg Q6H PRN Administration FEVER OR PAIN Aclidinium [place] 1 puff 02/26/17 10:00 03/05/17 10:33 Tudorza - IH 1 puff BID [facility] Administration Albuterol/Ipratropium 1 amp 02/26/17 01:46 03/05/17 06:20 Duoneb - NEB 1 amp Q4H PRN Administration SHORTNESS OF BREATH Allopurinol 300 mg 02/26/17 10:00 03/05/17 10:41 Zyloprim - PO 300 mg DAILY [facility] Administration Amlodipine Besylate 5 mg 02/26/17 10:00 03/05/17 10:36 Norvasc - PO 5 mg DAILY [facility] Administration Artificial Tears 1 drop 02/26/17 07:20 03/01/17 21:54 Artificial Tears OU 1 drop DAILY PRN Administration DRY EYES Atorvastatin Calcium 20 mg 02/26/17 22:00 03/04/17 22:45 Lipitor - PO 20 mg HS [facility] Administration Clopidogrel Bisulfate 75 mg 02/26/17 10:00 03/05/17 10:37 Plavix - PO 75 mg DAILY [facility] Administration Collagenase 1 applic 02/26/17 10:00 03/05/17 10:37 Santyl - TP Not Given DAILY [facility] Docusate Sodium 300 mg 02/26/17 22:00 03/04/17 22:43 Colace - PO Not Given HS [facility] Erythromycin 1 applic 02/26/17 06:00 03/05/17 06:30 Erythromycin 0.5% Eye Ointment OD Not Given TID [facility] Fentanyl 25 mcg 03/02/17 19:19 Sublimaze Injection - IVPUSH 03/05/17 19:20 [id number] PRN PAIN Ferrous Sulfate 325 mg 02/26/17 10:00 03/05/17 10:35 Feosol - PO 325 mg BID [facility] Administration Gabapentin 300 mg 02/26/17 06:00 03/05/17 06:31 Neurontin - PO 300 mg TID [facility] Administration Heparin Sodium (Porcine) 5,000 unit 02/26/17 06:00 03/05/17 06:31 Heparin - SQ 5,000 unit TID [facility] Administration Sodium Chloride 1,000 mls @ 75 mls/hr 02/26/17 01:45 03/05/17 01:46 Normal Saline - IV Not Given ASDIR [facility] Piperacillin Sod/Tazobactam 50 mls @ 100 mls/hr 02/26/17 11:15 03/05/17 10:41 Sod 3.375 gm/ Dextrose IVPB 100 mls/hr Q8H-IV [facility] Administration Vancomycin HCl 750 mg/ 250 mls @ 250 mls/hr 03/03/17 10:00 03/05/17 10:40 Dextrose IVPB 250 mls/hr DAILY [facility] Administration Protocol Insulin Aspart 1 vial 02/26/17 07:00 03/05/17 06:29 Novolog Vial Sliding Scale - SQ Not Given ACHS [facility] Protocol Insulin Detemir 22 units 02/26/17 22:00 03/04/17 22:47 Levemir Vial SQ 22 units HS [facility] Administration Losartan Potassium 25 mg 03/05/17 10:45 Cozaar - PO DAILY [facility] Metoprolol Succinate 25 mg 02/26/17 10:00 03/05/17 10:39 Toprol Xl - PO 25 mg DAILY [facility] Administration Nicotine Polacrilex 2 mg 02/26/17 01:46 Nicorette Gum - BUC Q2H PRN NICOTINE REPLACEMENT RX Non-Formulary Medication 7 mg 02/26/17 10:00 Memantine Hcl [Namenda Xr] PO DAILY [facility] Oxycodone HCl 5 mg 02/26/17 01:43 03/05/17 06:36 Roxicodone - PO 5 mg Q4H PRN Administration PAIN Pantoprazole Sodium 40 mg 02/26/17 10:00 03/05/17 10:37 Protonix - PO 40 mg DAILY [facility] Administration Pramipexole Dihydrochloride 0.5 mg 02/26/17 10:00 03/05/17 10:48 Mirapex - PO 0.5 mg BID [facility] Administration Fluticasone/Salmeterol 1 puff 02/26/17 10:00 03/05/17 10:34 Advair 100mcg/50mcg - IH 1 puff BID [facility] Administration Sitagliptin Phosphate 50 mg 02/26/17 07:00 03/05/17 06:31 Januvia - PO 50 mg DAILY@0700 [facility] Administration Solifenacin 5 mg 02/26/17 10:00 03/05/17 10:48 Vesicare - PO 5 mg DAILY [facility] Administration Tamsulosin HCl 0.4 mg 02/26/17 08:30 03/05/17 09:12 Flomax - PO 0.4 mg DAILY@0830 [facility] Administration Trazodone HCl 50 mg 02/26/17 22:00 03/04/17 22:43 Desyrel - PO 50 mg HS [facility] Administration ASSESSMENT/PLAN: 66 yo M with PMH COPD, O2 dependent, asthma, sleep apnea, pulmonary fibrosis, CAD, CVA, HTN, HLD, GI bleed, DM with PVD, CKD & neuropathy, chronic R foot wound presented to the ED with fever and pain in right foot. #Sepsis secondary to MRSA bacteremia and MRSA foot infection -Patient has been afebrile -Echo- unremarkable for any vegetations -MRI reveals osteomyelitis of the right foot -Repeat BCx negative to date -Day 7 of Zosyn 3.375g , Vancomycin 750mg per ID -Wound cx results: Klebsiella, MRSA, Corynebacterium/Diptherioid -Pain control and Wound Care w/ santyl wound gel -Vascular surgery/ID on board #JESÚS on CKD, secondary to sepsis -Improved -renal U/s negative -IVF -Avoid nephrotoxic agents #DM -BGM -ISS -Levemir 22 units -Januvia 50 mg daily #COPD -On home O2 3L -Continue Aclidinium bromide 1 puff BID -Continue advair 1 puff BID #History of gout -Continue allopurinol 300 mg daily #BPH -Continue Flomax 0.4 mg daily #Hx of microcytic anemia -Hgb is stable #Hx of CAD -continue Toporol XL 25 mg po daily -Continue Lipitor 20 mg po hs -Continue Plavix 75 mg po daily #FEN/GI -IVF 75 cc/hr -electrolytes wnl -Diabetic diet #PPx -DVT: Heparin 5000 units sq TID -GI: protonix 40 mg by mouth daily Dispo: Patient will likely need PICC for oil heaterman IV abx on Tuesday, D/c planning for Tuesday Visit type - Emergency Visit Emergency Visit: No - New Patient This patient is new to me today: No - Critical Care Critical Care patient: No
[2017-03-05] MEDS: LOSARTAN POTASSIUM 25 MG TABLET PO SCH (12:41)
[2017-03-05] MEDS: ATORVASTATIN CA 20 MG TABLET (FP) PO SCH (21:49)
[2017-03-05] MEDS: DOCUSATE SODIUM 100 MG CAPSULE (FP) PO SCH (21:49)
[2017-03-05] MEDS: INSULIN DETEMIR 100 UNITS/ML MDV SQ SCH (21:50)
[2017-03-05] MEDS: ARTIFICIAL TEARS (POLYVINYL ALCOHOL 1.4%) OPTH DROPS OU PRN (21:51)
[2017-03-05] MEDS: traZODone HCL 50 MG TABLET (FP) PO SCH (22:54)
[2017-03-05] MEDS: ACETAMINOPHEN 325 MG TABLET (FP) PO PRN (22:54)
[2017-03-06] MEDS ORDERED: DEXTROSE 5%-WATER - 50 ML IVPB ONE ×3 (01:42→17:36)
[2017-03-06] MEDS ORDERED: PIPERACILLIN/TAZOBACTAM 3.375 GM VIAL IVPB ONE ×3 (01:42→17:35)
[2017-03-06] MEDS: PIPERACILLIN/TAZOB 3.375 GM 3.375 GM in DEXTROSE 5%-WATER - 50 ML IVPB SCH ×3 (02:30→17:38)
[2017-03-06] MEDS: ERYTHROMYCIN 0.5% OPHTHALMIC OINTMENT 3.5 GM TUBE OD SCH ×3 (05:45→21:17)
[2017-03-06] MEDS: GABAPENTIN 300 MG CAPSULE (FP) PO SCH ×4 (06:42→21:18)
[2017-03-06] MEDS: SODIUM CHLORIDE 1,000 ML IV SCH (06:43)
[2017-03-06] MEDS: HEPARIN NA (PORCINE) 5,000 UNITS/ML 1ML VIAL SQ SCH ×3 (06:45→21:20)
[2017-03-06] MEDS: sitaGLIPtin PHOSPHATE 50 MG TABLET PO SCH (06:59)
[2017-03-06] MEDS: INSULIN SLIDING SCALE (NOVOLOG) 1 VIAL SQ SCH ×4 (06:59→21:21)
[2017-03-06 07:14] LABS: BASOPHIL 0.8 % (0-2.0); EOSINOPHIL 3.9 % (0-4.5); MCH 21.4 pg (25.7-33.7); MCHC 30.6 g/dl (32.0-35.9); MEAN CELL VOLUME 69.8 fl (80-96); MEAN PLT VOLUME 8.4 fl (7.5-11.1); NEUTROPHILS 62.9 % (42.8-82.8); PLATELET COUNT 254 K/MM3 (134-434); RDW 19.5 % (11.9-15.9); WHITE BLOOD COUNT 5.4 K/mm3 (4.0-10.0)
[2017-03-06] MEDS ORDERED: ARTIFICIAL TEARS (POLYVINYL ALCOHOL 1.4%) OPTH DROPS OU PRN (07:21)
[2017-03-06] MEDS ORDERED: ALBUTEROL SO4 2.5/IPRATROPIUM 0.5 INH SOL 3 ML VIAL.NEB. NEB PRN (07:21)
[2017-03-06] MEDS ORDERED: SODIUM CHLORIDE 1,000 ML IV SCH (07:21)
[2017-03-06] MEDS ORDERED: NICOTINE POLACRILEX 2 MG GUM BUC PRN (07:21)
[2017-03-06 08:24] LABS: ANION GAP 10 (8-16); CO2 26 mmol/L (21-32); CREATININE 1.3 mg/dL (0.7-1.3); GLUCOSE,RANDOM 50 mg/dL (74-106)
--- NOTE | 2017-03-06 09:27 | PN ---
Physical Exam: SUBJECTIVE: Patient seen and examined The patient is a 65-year-old man with a history of COPD, asthma, SAMMY, DM, CAD, CVA, HTN, hyperlipidemia, CKD, PAD, gout who was admitted to inpatient services with sepsis, MRSA bacteremia and osteomyelitis of the foot. He has no complaints. OBJECTIVE: Vital Signs Period Temp Pulse Resp BP Sys/Cintron Pulse Ox Last 24 Hr 97.4 F-98.6 F 59-69 20-20 152-160/77-93 95 HEART: S1S2, RRR LUNGS: Clear ABDOMEN: Soft, non-tender, non-distended, normal BS EXTREMITIES: No edema Laboratory Results - last 24 hr 03/05/17 03/05/17 03/05/17 12:38 17:22 21:41 WBC RBC Hgb Hct MCV MCH MCHC RDW Plt Count MPV Neutrophils % Lymphocytes % Monocytes % Eosinophils % Basophils % Sodium Potassium Chloride Carbon Dioxide Anion Gap BUN Creatinine POC Glucometer 123 106 123 Random Glucose Calcium Random Vancomycin 03/06/17 03/06/17 03/06/17 06:00 06:00 06:00 WBC 5.4 RBC 4.92 Hgb 10.5 L Hct 34.4 L MCV 69.8 L MCH 21.4 L MCHC 30.6 L RDW 19.5 H Plt Count 254 MPV 8.4 Neutrophils % 62.9 Lymphocytes % 21.6 Monocytes % 10.8 H Eosinophils % 3.9 Basophils % 0.8 Sodium 140 Potassium 4.2 Chloride 104 Carbon Dioxide 26 Anion Gap 10 BUN 15 Creatinine 1.3 POC Glucometer Random Glucose 50 L D Calcium 9.0 Random Vancomycin 17.190 03/06/17 03/06/17 06:38 06:58 WBC RBC Hgb Hct MCV MCH MCHC RDW Plt Count MPV Neutrophils % Lymphocytes % Monocytes % Eosinophils % Basophils % Sodium Potassium Chloride Carbon Dioxide Anion Gap BUN Creatinine POC Glucometer 57 101 Random Glucose Calcium Random Vancomycin Active Medications Generic Name Dose Route Start Last Admin Trade Name Freq PRN Reason Stop Dose Admin Acetaminophen 650 mg 03/06/17 07:21 Tylenol - PO Q6H PRN FEVER OR PAIN Aclidinium [place] 1 puff 03/06/17 10:00 Tudorza - IH BID [facility] Albuterol/Ipratropium 1 amp 03/06/17 07:21 Duoneb - NEB Q4H PRN SHORTNESS OF BREATH Allopurinol 300 mg 03/06/17 10:00 Zyloprim - PO DAILY [facility] Amlodipine Besylate 5 mg 03/06/17 10:00 Norvasc - PO DAILY [facility] Artificial Tears 1 drop 03/06/17 07:21 Artificial Tears OU DAILY PRN DRY EYES Atorvastatin Calcium 20 mg 03/06/17 22:00 Lipitor - PO HS [facility] Clopidogrel Bisulfate 75 mg 03/06/17 10:00 Plavix - PO DAILY [facility] Collagenase 1 applic 03/06/17 10:00 Santyl - TP DAILY [facility] Docusate Sodium 300 mg 03/06/17 22:00 Colace - PO HS [facility] Erythromycin 1 applic 03/06/17 14:00 Erythromycin 0.5% Eye Ointment OD TID [facility] Ferrous Sulfate 325 mg 03/06/17 10:00 Feosol - PO BID [facility] Gabapentin 300 mg 03/06/17 14:00 Neurontin - PO TID [facility] Heparin Sodium (Porcine) 5,000 unit 03/06/17 14:00 Heparin - SQ TID [facility] Vancomycin HCl 750 mg/ 250 mls @ 250 mls/hr 03/03/17 10:00 03/05/17 10:40 Dextrose IVPB 250 mls/hr DAILY [facility] Administration Protocol Piperacillin Sod/Tazobactam 50 mls @ 100 mls/hr 03/06/17 10:00 Sod 3.375 gm/ Dextrose IVPB Q8H-IV [facility] Sodium Chloride 1,000 mls @ 75 mls/hr 03/06/17 07:21 Normal Saline - IV ASDIR [facility] Insulin Aspart 1 vial 03/06/17 11:00 Novolog Vial Sliding Scale - SQ ACHS [facility] Protocol Insulin Detemir 22 units 03/06/17 22:00 Levemir Vial SQ HS [facility] Losartan Potassium 25 mg 03/05/17 10:45 03/05/17 12:41 Cozaar - PO 25 mg DAILY [facility] Administration Metoprolol Succinate 25 mg 03/06/17 10:00 Toprol Xl - PO DAILY [facility] Nicotine Polacrilex 2 mg 03/06/17 07:21 Nicorette Gum - BUC Q2H PRN NICOTINE REPLACEMENT RX Non-Formulary Medication 7 mg 03/06/17 10:00 Memantine Hcl [Namenda Xr] PO DAILY [facility] Pantoprazole Sodium 40 mg 03/06/17 10:00 Protonix - PO DAILY [facility] Pramipexole Dihydrochloride 0.5 mg 03/06/17 10:00 Mirapex - PO BID [facility] Fluticasone/Salmeterol 1 puff 03/06/17 10:00 Advair 100mcg/50mcg - IH BID [facility] Sitagliptin Phosphate 50 mg 03/07/17 07:00 Januvia - PO DAILY@0700 [facility] Solifenacin 5 mg 03/06/17 10:00 Vesicare - PO DAILY [facility] Tamsulosin HCl 0.4 mg 03/06/17 08:30 Flomax - PO DAILY@0830 [facility] Trazodone HCl 50 mg 03/06/17 22:00 Desyrel - PO HS [facility] ASSESSMENT/PLAN: #ID Sepsis, MRSA bacteremia, abscess/osteomyelitis of right foot Wound culture (02/25) grew MRSA, Klebsiella, Pseudomonas Repeat blood cultures (02/28) negative after 5 days No evidence of endocarditis on echo s/p excisional debridement of right foot skin and subcutaneous tissue 03/02 - culture growing MRSA, gram negative bacilli, Diphtheroid Final culture results noted Vanco trough noted Continue wound care Continue Zosyn, Vancomycin Await ID recommendations #RENAL Stage 3 CKD Acute kidney injury, resolved #ENDOCRINE Type 2 DM Continue Januvia, Levemir, Novolog sliding scale #PULMONARY Chronic hypoxic respiratory failure secondary to COPD/asthma/pulmonary fibrosis/ SAMMY Stable Continue Tudorza, Advair, DuoNeb as needed, oxygen #HEMATOLOGY Microcytic anemia Hemoglobin is stable #CARDIOVASCULAR Chronic HTN Chronic Hyperlipidemia Chronic CAD History of CVA PAD, history of SFA stent Continue Norvasc, Toprol XL, Cozaar Continue Plavix Lasix held secondary to JESÚS Can likely restart in next day or so if creatinine stays at baseline after the addition of Cozaar #RHEUM History of gout Continue Allopurinol # BPH Continue Flomax #FEN Dabetic/Low Na diet D51/2NS at 125ml for maintenance #PROPHYLAXIS Protonix SQ Heparin Colace #DISPOSITION Pending ID recommendations regarding antibiotic options Visit type - Emergency Visit Emergency Visit: Yes ED Registration Date: 02/26/17 Care time: The patient presented to the Emergency Department on the above date and was hospitalized for further evaluation of their emergent condition. - New Patient This patient is new to me today: Yes Date on this admission: 03/06/17 - Critical Care Critical Care patient: No
[2017-03-06] MEDS ORDERED: PT OWN MED DRAWER 7, Y5N ONE ×4 (09:53→22:26)
[2017-03-06] MEDS ORDERED: MEMANTINE HCL 7 MG PO SCH (10:00)
[2017-03-06] MEDS: DEXTROSE 5%-0.45% SALINE 1,000 ML IV SCH ×2 (10:15→21:15)
[2017-03-06] MEDS: TAMSULOSIN HCL 0.4 MG CAP.ER.24H (FP) PO SCH (10:15)
[2017-03-06] MEDS: FERROUS SO4 325 MG TABLET (FP) PO SCH ×2 (10:16→21:17)
[2017-03-06] MEDS: FLUTICASONE/SALMETEROL 100 MCG/50 MCG DISKUS IH SCH ×2 (10:16→21:16)
[2017-03-06] MEDS: LOSARTAN POTASSIUM 25 MG TABLET PO SCH (10:16)
[2017-03-06] MEDS: PANTOPRAZOLE 40 MG TABLET (FP) PO SCH (10:17)
[2017-03-06] MEDS: ACLIDINIUM BROMIDE 400 MCG/INH AERO.POWD IH SCH ×2 (10:17→21:19)
[2017-03-06] MEDS: amLODIPine BESYLATE 5 MG TABLET (FP) PO SCH (10:17)
[2017-03-06] MEDS: METOPROLOL SUCCINATE 25 MG TAB.SR.24H (FP) PO SCH (10:17)
[2017-03-06] MEDS: SOLIFENACIN SUCCINATE 5 MG TAB (FP) PO SCH (10:17)
[2017-03-06] MEDS: CLOPIDOGREL BISULFATE 75 MG TABLET (FP) PO SCH (10:17)
[2017-03-06] MEDS: ALLOPURINOL 300 MG TABLET (FP) PO SCH (10:18)
[2017-03-06] MEDS: COLLAGENASE CLOSTRIDIUM HIST. 30 GRAMS TUBE TP SCH (10:20)
[2017-03-06] MEDS: VANCOMYCIN 750 MG in DEXTROSE 5%-WATER - 250 ML IVPB SCH (11:44)
[2017-03-06] MEDS: PRAMIPEXOLE DIHYDROCHLORIDE 0.5 MG TABLET PO SCH ×3 (12:11→23:05)
[2017-03-06] MEDS: DOCUSATE SODIUM 100 MG CAPSULE (FP) PO SCH (21:17)
[2017-03-06] MEDS: traZODone HCL 50 MG TABLET (FP) PO SCH (21:17)
[2017-03-06] MEDS: ATORVASTATIN CA 20 MG TABLET (FP) PO SCH (21:18)
[2017-03-06] MEDS: INSULIN DETEMIR 100 UNITS/ML MDV SQ SCH (21:20)
[2017-03-06] MEDS: ACETAMINOPHEN 325 MG TABLET (FP) PO PRN (21:22)
[2017-03-07] MEDS ORDERED: PIPERACILLIN/TAZOBACTAM 3.375 GM VIAL IVPB ONE ×2 (00:42→09:55)
[2017-03-07] MEDS ORDERED: DEXTROSE 5%-WATER - 50 ML IVPB ONE ×2 (00:43→09:56)
[2017-03-07] MEDS: PIPERACILLIN/TAZOB 3.375 GM 3.375 GM in DEXTROSE 5%-WATER - 50 ML IVPB SCH ×2 (01:14→10:33)
[2017-03-07] MEDS: DEXTROSE 5%-0.45% SALINE 1,000 ML IV SCH ×3 (06:08→18:57)
[2017-03-07] MEDS: ERYTHROMYCIN 0.5% OPHTHALMIC OINTMENT 3.5 GM TUBE OD SCH ×3 (06:10→21:29)
[2017-03-07] MEDS: HEPARIN NA (PORCINE) 5,000 UNITS/ML 1ML VIAL SQ SCH ×3 (06:11→21:30)
[2017-03-07] MEDS: GABAPENTIN 300 MG CAPSULE (FP) PO SCH ×3 (06:11→21:29)
[2017-03-07] MEDS: INSULIN SLIDING SCALE (NOVOLOG) 1 VIAL SQ SCH ×4 (06:12→21:28)
[2017-03-07] MEDS: ACETAMINOPHEN 325 MG TABLET (FP) PO PRN (06:12)
[2017-03-07] MEDS: sitaGLIPtin PHOSPHATE 50 MG TABLET PO SCH (06:19)
[2017-03-07 07:44] LABS: MCH 21.3 pg (25.7-33.7); MCHC 30.1 g/dl (32.0-35.9); MEAN CELL VOLUME 70.7 fl (80-96); MEAN PLT VOLUME 9.1 fl (7.5-11.1); PLATELET COUNT 265 K/MM3 (134-434); RDW 19.1 % (11.9-15.9); WHITE BLOOD COUNT 5.3 K/mm3 (4.0-10.0)
[2017-03-07] MEDS ORDERED: PICC LINE 8 ML FLUSH PROTOCOL IVPUSH PRN (08:15)
[2017-03-07 08:19] LABS: ANION GAP 6 (8-16); CALCIUM 8.2 mg/dL (8.5-10.1); CO2 28 mmol/L (21-32); CREATININE 1.5 mg/dL (0.7-1.3); GLUCOSE,RANDOM 134 mg/dL (74-106); MAGNESIUM 1.8 mg/dL (1.8-2.4); PHOSPHOROUS 3.3 mg/dL (2.5-4.9)
[2017-03-07] MEDS ORDERED: PT OWN MED DRAWER 7, Y5N ONE (09:55)
[2017-03-07] MEDS: FLUTICASONE/SALMETEROL 100 MCG/50 MCG DISKUS IH SCH ×2 (10:31→21:27)
[2017-03-07] MEDS: PRAMIPEXOLE DIHYDROCHLORIDE 0.5 MG TABLET PO SCH ×2 (10:32→21:30)
[2017-03-07] MEDS: amLODIPine BESYLATE 5 MG TABLET (FP) PO SCH (10:32)
[2017-03-07] MEDS: FERROUS SO4 325 MG TABLET (FP) PO SCH ×2 (10:32→21:29)
[2017-03-07] MEDS: LOSARTAN POTASSIUM 25 MG TABLET PO SCH (10:32)
[2017-03-07] MEDS: SOLIFENACIN SUCCINATE 5 MG TAB (FP) PO SCH (10:32)
[2017-03-07] MEDS: CLOPIDOGREL BISULFATE 75 MG TABLET (FP) PO SCH (10:32)
[2017-03-07] MEDS: METOPROLOL SUCCINATE 25 MG TAB.SR.24H (FP) PO SCH (10:32)
[2017-03-07] MEDS: ALLOPURINOL 300 MG TABLET (FP) PO SCH (10:32)
[2017-03-07] MEDS: PANTOPRAZOLE 40 MG TABLET (FP) PO SCH (10:32)
[2017-03-07] MEDS: TAMSULOSIN HCL 0.4 MG CAP.ER.24H (FP) PO SCH (10:32)
[2017-03-07] MEDS: COLLAGENASE CLOSTRIDIUM HIST. 30 GRAMS TUBE TP SCH (10:33)
[2017-03-07] MEDS: ACLIDINIUM BROMIDE 400 MCG/INH AERO.POWD IH SCH ×2 (10:33→21:27)
[2017-03-07] MEDS: VANCOMYCIN 750 MG in DEXTROSE 5%-WATER - 250 ML IVPB SCH (10:57)
--- NOTE | 2017-03-07 11:25 | PN ---
Teaching Attending Note Name of Resident: Laura Olivo ATTENDING PHYSICIAN STATEMENT I saw and evaluated the patient. I reviewed the resident's note and discussed the case with the resident. I agree with the resident's findings and plan as documented. SUBJECTIVE: No complaints He wants to go home OBJECTIVE: Vitals noted ASSESSMENT AND PLAN: IR to place tunneled catheter today ID arranging outpatient antibiotics at the infusion center Anticipate discharge today See resident note for full details
--- NOTE | 2017-03-07 11:26 | PN ---
Teaching Attending Note Name of Resident: Laura Olivo ATTENDING PHYSICIAN STATEMENT
[2017-03-07] MEDS ORDERED: ERTAPENEM SODIUM 1 GM/50 ML PRE-DOCKED IVPB SCH (14:30)
[2017-03-07] MEDS: ERTAPENEM SODIUM 1 GM in SODIUM CHLORIDE 50 ML IVPB SCH (16:46)
--- NOTE | 2017-03-07 17:19 | PN ---
Physical Exam: SUBJECTIVE: Patient seen and examined No acute events overnight. Patient has no complaints this morning. Patient went for tunnel catheter today OBJECTIVE: Vital Signs Period Temp Pulse Resp BP Sys/Cintron Pulse Ox Last 24 Hr 97.6 F-98.8 F 65-70 20-20 122-155/72-96 96-99 GENERAL: Awake, alert, and fully oriented, in no acute distress. HEAD: Normal with no signs of trauma. EYES: Pupils equal, round and reactive to light, extraocular movements intact, sclera anicteric, conjunctiva clear. No lid lag. EARS, NOSE, THROAT: Ears normal, nares patent, oropharynx clear without exudates. Moist mucous membranes. NECK: Normal range of motion, supple without lymphadenopathy, JVD, or masses. LUNGS: Breath sounds equal, clear to auscultation bilaterally. No wheezes, and no crackles. No accessory muscle use. HEART: Regular rate and rhythm, normal S1 and S2 without murmur, rub or gallop. ABDOMEN: Soft, nontender, not distended, normoactive bowel sounds, no guarding, no rebound, no masses. No hepatomegaly or splenomegaly. MUSCULOSKELETAL: Normal range of motion at all joints. No bony deformities or tenderness. No CVA tenderness. left foot 2nd toe amputation UPPER EXTREMITIES: 2+ pulses, warm, well-perfused. No cyanosis. No clubbing. No peripheral edema. LOWER EXTREMITIES:Right foot wound appears to be healing well with clean edges. Packing in place. PSYCHIATRIC: Cooperative. Good eye contact. Appropriate mood and affect. SKIN: Warm, dry, normal turgor, no rashes or lesions noted, normal capillary refill. Laboratory Results - last 24 hr 03/06/17 03/07/17 03/07/17 20:48 05:36 06:00 WBC 5.3 RBC 5.06 Hgb 10.8 L Hct 35.8 MCV 70.7 L MCH 21.3 L MCHC 30.1 L RDW 19.1 H Plt Count 265 MPV 9.1 Sodium Potassium Chloride Carbon Dioxide Anion Gap BUN Creatinine POC Glucometer 190 137 Random Glucose Calcium Phosphorus Magnesium 03/07/17 03/07/17 03/07/17 06:00 12:08 16:47 WBC RBC Hgb Hct MCV MCH MCHC RDW Plt Count MPV Sodium 137 Potassium 4.4 Chloride 103 Carbon Dioxide 28 Anion Gap 6 L BUN 15 Creatinine 1.5 H POC Glucometer 208 96 Random Glucose 134 H D Calcium 8.2 L Phosphorus 3.3 Magnesium 1.8 Active Medications Generic Name Dose Route Start Last Admin Trade Name [place] PRN Reason Stop Dose Admin Acetaminophen 650 mg 03/06/17 07:21 03/07/17 06:12 Tylenol - PO 650 mg Q6H PRN Administration FEVER OR PAIN Aclidinium [place] 1 puff 03/06/17 10:00 03/07/17 10:33 Tudorza - IH 1 puff BID [facility] Administration Albuterol/Ipratropium 1 amp 03/06/17 07:21 Duoneb - NEB Q4H PRN SHORTNESS OF BREATH Allopurinol 300 mg 03/06/17 10:00 03/07/17 10:32 Zyloprim - PO 300 mg DAILY [facility] Administration Amlodipine Besylate 5 mg 03/06/17 10:00 03/07/17 10:32 Norvasc - PO 5 mg DAILY [facility] Administration Artificial Tears 1 drop 03/06/17 07:21 Artificial Tears OU DAILY PRN DRY EYES Atorvastatin Calcium 20 mg 03/06/17 22:00 03/06/17 21:18 Lipitor - PO 20 mg HS [facility] Administration Clopidogrel Bisulfate 75 mg 03/06/17 10:00 03/07/17 10:32 Plavix - PO 75 mg DAILY [facility] Administration Collagenase 1 applic 03/06/17 10:00 03/07/17 10:33 Santyl - TP 1 applic DAILY [facility] Administration Docusate Sodium 300 mg 03/06/17 22:00 03/06/17 21:17 Colace - PO Not Given HS [facility] Erythromycin 1 applic 03/06/17 14:00 03/07/17 14:40 Erythromycin 0.5% Eye Ointment OD Not Given TID [facility] Ferrous Sulfate 325 mg 03/06/17 10:00 03/07/17 10:32 Feosol - PO 325 mg BID [facility] Administration Gabapentin 300 mg 03/06/17 14:00 03/07/17 14:44 Neurontin - PO 300 mg TID [facility] Administration Heparin Sodium (Porcine) 5,000 unit 03/06/17 14:00 03/07/17 14:43 Heparin - SQ 5,000 unit TID [facility] Administration IV Flush 8 ml 03/07/17 08:15 Picc Line Flush IVPUSH PRN PRN Protocol Vancomycin HCl 750 mg/ 250 mls @ 250 mls/hr 03/03/17 10:00 03/07/17 10:57 Dextrose IVPB 250 mls/hr DAILY [facility] Administration Protocol Dextrose/Sodium Chloride 1,000 mls @ 125 mls/hr 03/06/17 09:45 03/07/17 10:31 D5-1/2ns - IV Not Given ASDIR [facility] Ertapenem 1 gm/ Sodium 50 mls @ 100 mls/hr 03/07/17 14:45 03/07/17 16:46 Chloride IVPB 100 mls/hr DAILY [facility] Administration Insulin Aspart 1 vial 03/06/17 11:00 03/07/17 16:47 Novolog Vial Sliding Scale - SQ Not Given ACHS [facility] Protocol Insulin Detemir 22 units 03/06/17 22:00 03/06/17 21:20 Levemir Vial SQ 22 units HS [facility] Administration Losartan Potassium 25 mg 03/05/17 10:45 03/07/17 10:32 Cozaar - PO 25 mg DAILY [facility] Administration Metoprolol Succinate 25 mg 03/06/17 10:00 03/07/17 10:32 Toprol Xl - PO 25 mg DAILY [facility] Administration Nicotine Polacrilex 2 mg 03/06/17 07:21 Nicorette Gum - BUC Q2H PRN NICOTINE REPLACEMENT RX Pantoprazole Sodium 40 mg 03/06/17 10:00 03/07/17 10:32 Protonix - PO 40 mg DAILY [facility] Administration Pramipexole Dihydrochloride 0.5 mg 03/06/17 10:00 03/07/17 10:32 Mirapex - PO 0.5 mg BID [facility] Administration Fluticasone/Salmeterol 1 puff 03/06/17 10:00 03/07/17 10:31 Advair 100mcg/50mcg - IH 1 puff BID [facility] Administration Sitagliptin Phosphate 50 mg 03/07/17 07:00 03/07/17 06:19 Januvia - PO 50 mg DAILY@0700 [facility] Administration Solifenacin 5 mg 03/06/17 10:00 03/07/17 10:32 Vesicare - PO 5 mg DAILY [facility] Administration Tamsulosin HCl 0.4 mg 03/06/17 08:30 03/07/17 10:32 Flomax - PO 0.4 mg DAILY@0830 [facility] Administration Trazodone HCl 50 mg 03/06/17 22:00 03/06/17 21:17 Desyrel - PO 50 mg HS [facility] Administration ASSESSMENT/PLAN: 66 yo M with PMH COPD, O2 dependent, asthma, sleep apnea, pulmonary fibrosis, CAD, CVA, HTN, HLD, GI bleed, DM with PVD, CKD & neuropathy, chronic R foot wound presented to the ED with fever and pain in right foot. #Sepsis secondary to MRSA bacteremia and MRSA foot infection -Patient has been afebrile -Echo- unremarkable for any vegetations -MRI revealed osteomyelitis of the right foot -Repeat BCx negative to date -Wound cx results: Klebsiella-ESBL, MRSA, Corynebacterium/Diptherioid -Pain control and Wound Care w/ santyl wound gel -Tunnel catheter placed today -Patient will go home with 5 weeks of Vancomycin/Ertapenem -Vascular surgery/ID on board #JESÚS on CKD, secondary to sepsis -Improved -renal U/s negative -IVF -Avoid nephrotoxic agents #DM -BGM -ISS -Levemir 22 units -Januvia 50 mg daily #COPD -On home O2 3L -Continue Aclidinium bromide 1 puff BID -Continue advair 1 puff BID #History of gout -Continue allopurinol 300 mg daily #BPH -Continue Flomax 0.4 mg daily #Hx of microcytic anemia -Hgb is stable #Hx of CAD -continue Toporol XL 25 mg po daily -Continue Lipitor 20 mg po hs -Continue Plavix 75 mg po daily #FEN/GI -IVF 75 cc/hr -electrolytes wnl -Diabetic diet #PPx -DVT: Heparin 5000 units sq TID -GI: protonix 40 mg by mouth daily Dispo: Patient will be d/c in the AM with tunnel catheter on Vancomycin and Ertapenem Visit type - Emergency Visit Emergency Visit: No - New Patient This patient is new to me today: No - Critical Care Critical Care patient: No
[2017-03-07] MEDS: DOCUSATE SODIUM 100 MG CAPSULE (FP) PO SCH (21:29)
[2017-03-07] MEDS: traZODone HCL 50 MG TABLET (FP) PO SCH (21:29)
[2017-03-07] MEDS: INSULIN DETEMIR 100 UNITS/ML MDV SQ SCH (21:30)
[2017-03-07] MEDS: ATORVASTATIN CA 20 MG TABLET (FP) PO SCH (21:30)
[2017-03-08] MEDS: DEXTROSE 5%-0.45% SALINE 1,000 ML IV SCH ×2 (03:02→10:14)
[2017-03-08] MEDS: ERYTHROMYCIN 0.5% OPHTHALMIC OINTMENT 3.5 GM TUBE OD SCH ×2 (05:54→15:05)
[2017-03-08] MEDS: HEPARIN NA (PORCINE) 5,000 UNITS/ML 1ML VIAL SQ SCH ×2 (05:55→15:01)
[2017-03-08] MEDS: GABAPENTIN 300 MG CAPSULE (FP) PO SCH ×2 (05:55→15:02)
[2017-03-08] MEDS: sitaGLIPtin PHOSPHATE 50 MG TABLET PO SCH (06:16)
[2017-03-08] MEDS: INSULIN SLIDING SCALE (NOVOLOG) 1 VIAL SQ SCH ×2 (06:16→12:23)
[2017-03-08] MEDS ORDERED: INSULIN (NOVOLOG) ASPART 100 UNITS/ML 10ML VIAL ONE ×2 (06:47→12:38)
[2017-03-08] MEDS: TAMSULOSIN HCL 0.4 MG CAP.ER.24H (FP) PO SCH (08:09)
[2017-03-08 09:34] LABS: EOSINOPHIL 3.6 % (0-4.5); MCH 21.3 pg (25.7-33.7); MCHC 30.2 g/dl (32.0-35.9); MEAN CELL VOLUME 70.6 fl (80-96); MEAN PLT VOLUME 8.4 fl (7.5-11.1); NEUTROPHILS 69.5 % (42.8-82.8); PLATELET COUNT 247 K/MM3 (134-434); RDW 19.9 % (11.9-15.9); WHITE BLOOD COUNT 6.1 K/mm3 (4.0-10.0)
[2017-03-08 09:53] LABS: ANION GAP 8 (8-16); CALCIUM 8.4 mg/dL (8.5-10.1); CO2 27 mmol/L (21-32); CREATININE 1.2 mg/dL (0.7-1.3); GLUCOSE,RANDOM 182 mg/dL (74-106); MAGNESIUM 1.8 mg/dL (1.8-2.4)
[2017-03-08] MEDS ORDERED: PT OWN MED DRAWER 7, Y5N ONE ×2 (09:54→15:03)
[2017-03-08] MEDS: FLUTICASONE/SALMETEROL 100 MCG/50 MCG DISKUS IH SCH (10:01)
[2017-03-08] MEDS: PANTOPRAZOLE 40 MG TABLET (FP) PO SCH (10:02)
[2017-03-08] MEDS: LOSARTAN POTASSIUM 25 MG TABLET PO SCH (10:02)
[2017-03-08] MEDS: FERROUS SO4 325 MG TABLET (FP) PO SCH (10:02)
[2017-03-08] MEDS: CLOPIDOGREL BISULFATE 75 MG TABLET (FP) PO SCH (10:02)
[2017-03-08] MEDS: amLODIPine BESYLATE 5 MG TABLET (FP) PO SCH (10:03)
[2017-03-08] MEDS: ERTAPENEM SODIUM 1 GM in SODIUM CHLORIDE 50 ML IVPB SCH (10:03)
[2017-03-08] MEDS: ALLOPURINOL 300 MG TABLET (FP) PO SCH (10:03)
[2017-03-08] MEDS: METOPROLOL SUCCINATE 25 MG TAB.SR.24H (FP) PO SCH (10:06)
[2017-03-08] MEDS: PRAMIPEXOLE DIHYDROCHLORIDE 0.5 MG TABLET PO SCH (10:08)
[2017-03-08] MEDS: ACLIDINIUM BROMIDE 400 MCG/INH AERO.POWD IH SCH (10:13)
[2017-03-08] MEDS: SOLIFENACIN SUCCINATE 5 MG TAB (FP) PO SCH (10:16)
[2017-03-08] MEDS: VANCOMYCIN 750 MG in DEXTROSE 5%-WATER - 250 ML IVPB SCH (11:10)
[2017-03-08 11:48] LABS: PHOSPHOROUS 2.8 mg/dL (2.5-4.9)
--- NOTE | 2017-03-08 13:17 | DS ---
Physical Exam: LABS Selected Entries 02/28/17 03/01/17 03/03/17 10:00 05:46 05:00 Temperature 98.4 F 98.8 F Pulse Rate 71 69 Blood Pressure 118/80 O2 Sat by Pulse Oximetry (%) Oxygen Flow Rate 03/03/17 03/05/17 03/06/17 17:33 18:46 13:56 Temperature 98.2 F Pulse Rate 59 L Blood Pressure 136/77 O2 Sat by Pulse Oximetry (%) Oxygen Flow Rate 03/06/17 03/08/17 03/08/17 18:00 10:00 10:25 Temperature 98.1 F Pulse Rate 59 L Blood Pressure 128/77 140/85 O2 Sat by Pulse 97 Oximetry (%) Oxygen Flow 3 Rate Laboratory Tests 02/25/17 02/25/17 02/25/17 17:31 17:31 17:40 WBC 17.0 H D Hgb 10.2 L D Hct 34.0 L D Sodium 136 Potassium 4.2 Random Glucose 173 H D Lactic Acid 1.9 Creatine Kinase 874 H CK-MB (CK-2) 6.227 H C-Reactive Protein 02/26/17 02/26/17 02/27/17 08:00 08:00 06:00 WBC 12.8 H 8.3 D Hgb Hct Sodium Potassium Random Glucose Lactic Acid Creatine Kinase 731 H CK-MB (CK-2) 4.388 H C-Reactive Protein 18.7 H D 02/27/17 02/28/17 03/02/17 06:00 06:40 05:35 WBC 5.5 D 6.3 Hgb 9.8 L Hct Sodium Potassium Random Glucose 98 D Lactic Acid Creatine Kinase CK-MB (CK-2) C-Reactive Protein 03/02/17 03/03/17 03/04/17 05:35 06:00 06:10 WBC Hgb Hct 31.1 L Sodium 141 Potassium 4.2 Random Glucose Lactic Acid Creatine Kinase CK-MB (CK-2) C-Reactive Protein 03/05/17 03/08/17 03/08/17 06:00 06:30 06:30 WBC 6.1 Hgb 10.1 L Hct 33.3 L Sodium 139 Potassium 4.2 Random Glucose 83 D 182 H D Lactic Acid Creatine Kinase CK-MB (CK-2) C-Reactive Protein Microbiology 03/02/17 20:00 Wound-Other Gram Stain - Final 03/02/17 20:00 Wound-Other Wound Culture - Final Klebsiella Pneumoniae - Esbl Mr S Aureus Diphtheroid/Corynebacterium 02/25/17 18:35 Foot - Right Plantar Gram Stain - Final 02/25/17 18:35 Foot - Right Plantar Wound Culture - Final S Aureus Klebsiella Pneumoniae Pseudomonas Aeruginosa 02/25/17 17:31 Blood - Peripheral Venous Blood Culture - Final Mr S Aureus Imaging- 02/25- CXR- Since 10/22/2016, again noted the coarse changes especially at the left base. The mediastinum is not widened. The angles are sharp and the soft tissues are intact. The coarse changes could represent an element of congestion. 02/26- Xray of foot- Markedly deformed foot especially involving the second and third metatarsals. Suggest further imaging. 02/27- u/s kidney- Impression: Negative exam. No sonographic abnormality is identified. 02/28- lower ext MRI- 1. Soft tissue swelling of the foot with open wound over the plantar aspect of the tarsal heads and open wound of the plantar medial soft tissues at the level of the medial residual first metatarsal. 2. Focal fluid surrounding the residual distal first metatarsal consistent with an abscess and soft tissue edema of the plantar aspect of the residual second metatarsal may represent a phlegmon. 3. Osteomyelitis of the residual first metatarsal, proximal phalanx of the second toe, residual second metatarsal head and proximal aspect of the metatarsal, residual third metatarsal head and base of the proximal phalanx, and the residual fourth metatarsal. 4. Milder osteomyelitis of the distal fifth metatarsal diaphysis and fifth metatarsal head. 5. Bone marrow edema of the dorsal aspect of the medial cuneiform which is nonspecific and could be neuropathic however osteomyelitis cannot be excluded. 02/25- EKG- nsr, left posterior fascicular block, cannot rule out inferior infarct, t wave variation 02/28- ECHO- EF 63.3, normal echo, mild TR, mild mitral annular calcifcation HOSPITAL COURSE: Date of Admission:02/26/17 Date of Discharge: 03/08/17 66 y.o. M with significant pmh of DM, PVD, and neuropathy with chronic wounds to his feet presented with fever. His visiting nurse felt that he was warm, took his temperature, which was reportedly 101 and called an ambulance. Patient was s/p debridement for OM on 01/26/17. Due to his temperature and leukocytosis, he was suspected to have sepsis 2/2 a R foot ulcer. Patient's blood cultures were found to be MRSA bactermiea. He was continued on Vancomycin and Zosyn. He underwent an echo, to r/o endocarditis (results above). In addition, he underwent an MRI of the foot (results above). Due to the OM, patient went for debridement of the foot on 03/02 by vascular surgery. Wound cultures were drawn, which grew Klebsiella Pneumoniae - Esbl, Mr S Aureus, and Diphtheroid/Corynebacterium. Patient underwent procedure for tunnel catheter placement on 03/07 and will be discharged home on Vancomycin 750 mg and Ertapenem 1 gm IV daily to complete a 6 week course. He will receive VNS care at home. Patient will continue his home medications and f/u with Dr. Sanders weekly for lab monitoring. He will receive wet to dry dressing changes daily to his wound. Minutes to complete discharge: 40 Discharge Summary Reason For Visit: WOUND FOOT, FEVER ACUTE RENAL FAILURE Current Active Problems JESÚS (acute kidney injury) (Acute) Osteomyelitis (Acute) Renal insufficiency (Acute) Sepsis (Acute) Wound, open, foot (Acute) CKD (chronic kidney disease) (Chronic) COPD (chronic obstructive pulmonary disease) (Chronic) Coronary artery disease (Chronic) Diabetes mellitus type 2 with peripheral artery disease (Chronic) Hypertension (Chronic) Iron deficiency anemia (Chronic) Peripheral artery disease (Chronic) Tobacco use disorder (Chronic) Condition: Improved - Instructions Diet, Activity, Other Instructions: You were in the hospital because you were found to have an infection in a bone in your foot and in your blood. You will receive a course of antibiotics at home with a visiting nurse. Please follow up with your primary care provider within 1 week. Please follow up with Dr. Sanders 1 time per week to get blood work done. Continue the following home medications as we discussed: -Allopurinol 300 mg by mouth daily -Trazadone 50 mg by mouth at night -Ferrous sulfate 325 mg by mouth twice per day -Flomax 0.4 mg by mouth daily -Gabapentin 300 mg by mouth 3x per day -Lasix 20 mg by mouth as directed -Lipitor 20 mg by mouth daily -Mirapex 0.5 mg by mouth twice per day -Namenda xr 7 mg by mouth daily -Protonix 40 mg by mouth daily -Tradjenta 5 mg by mouth daily -Advair 1 puff two times per day -Cozaar 25 mg by mouth daily -Januvia 50 mg by mouth daily -Levemir 22 units injection at night -Amlodipine 5 mg by mouth daily -Plavix 75 mg by mouth daily -Oxycodone 5 mg by mouth every 8 hrs as needed -Metoprolol 25 mg by mouth daily -Tudorza 1 puff twice per day You will receive these medications at home: -Vancomycin 750 mg iv daily for a total of 35 more days -Ertapenem 1gm IV daily for a total of 35 more days For wound care, you will receive wet to dry dressing changes daily. If you have any chest pain, shortness of breath, or any new symptoms please come back to the hospital immediately. Referrals: Johnny Giron MD, [Staff Physician] - Jay Sanders MD [Staff Physician] - Disposition: VNS/HOME HEALTH CARE - Home Medications Comprehensive Discharge Medication List: Ambulatory Orders Allopurinol 300 mg PO DAILY 05/11/16 Atorvastatin Ca [Lipitor] 20 mg PO DAILY 05/11/16 Linagliptin [Tradjenta] 5 mg PO DAILY 05/11/16 Nystatin Powder [Nystop Powder -] 60 gm TP DAILY 05/11/16 Peg 400/Hypromellose/Glycerin [Artificial Tears Drops] 1 drop OU DAILY 05/11/16 Tamsulosin HCl [Flomax -] 0.4 mg PO DAILY 05/11/16 Trazodone HCl [Desyrel -] 50 mg PO HS 05/11/16 Losartan Potassium [Cozaar -] 25 mg PO DAILY tablet 07/19/16 Metoprolol Succinate [Toprol XL -] 25 mg PO DAILY tab.sr.24h 07/19/16 Oxycodone HCl [Roxicodone -] 5 mg PO Q8H PRN #30 tablet MDD 3 07/19/16 Memantine HCl [Namenda Xr] 7 mg PO DAILY 07/22/16 Aclidinium [place] [Tudorza -] 1 puff IH BID inhaler 10/29/16 Amlodipine Besylate [Norvasc -] 5 mg PO DAILY tablet 10/29/16 Clopidogrel Bisulfate [Plavix -] 75 mg PO DAILY tablet 10/29/16 Salmeterol/Fluticasone [Advair 100Mcg/50Mcg -] 1 puff IH BID inhaler 10/29/16 Ferrous Sulfate 325 mg PO BID 01/25/17 Gabapentin 300 mg PO TID 01/25/17 Oxybutynin Chloride [Ditropan Xl] 5 mg PO DAILY 01/25/17 Pantoprazole Sodium [Protonix] 40 mg PO DAILY 01/25/17 Pramipexole Dihydrochloride [Mirapex -] 0.5 mg PO BID 01/25/17 Ertapenem Sodium [Invanz -] 1 gm IVPB DAILY 35 Days 03/08/17 Furosemide [Lasix] 20 mg PO DAILY #0 mg 03/08/17 Insulin (Levemir) [Levemir Flexpen -] 22 units SQ HS #1 units 03/08/17 Sitagliptin Phosphate [Januvia -] 50 mg PO DAILY@0700 tablet 03/08/17 Vancomycin 750 mg IVPB DAILY 35 Days 03/08/17 This patient is new to me today: No Emergency Visit: No Critical Care patient: No - Discharge Referral Referred to [facility] No
[2017-03-08 13:45] VITALS: BP 149/78; PULSE 59; TEMP 97.8
[2017-03-08] MEDS: COLLAGENASE CLOSTRIDIUM HIST. 30 GRAMS TUBE TP SCH (15:02)
--- NOTE | 2017-03-08 16:25 | PN ---
Teaching Attending Note Name of Resident: Miguelito Ray ATTENDING PHYSICIAN STATEMENT I saw and evaluated the patient. I reviewed the resident's note and discussed the case with the resident. I agree with the resident's findings and plan as documented. SUBJECTIVE:asymptomatic. denies Cp, SOB,fever, chills, N/V/C/D, foot pain or drainage OBJECTIVE: Last Vital Signs Temp Pulse Resp BP Pulse Ox 97.8 F 59 L 20 149/78 97 03/08/17 13:42 03/08/17 13:42 03/08/17 13:42 03/08/17 13:42 03/08/17 10:25 General NAD CV S1 S2 RRR no murmur/rub/gallop +R chest wall catheter in place. area mildly tender, no bleeding noted Lungs CTA B/L No wheezing/rales/rhonchi ASSESSMENT AND PLAN: 65-year-old man with a history of COPD, asthma, SAMMY, DM, CAD, CVA, HTN, hyperlipidemia, CKD, PAD, gout who presented to the ER with fever. 1. Sepsis secondary to MRSA bacteremia and possible abscess/osteomyelitis of right foot- s/p excisional debrideemtn of R foot 03/02. Wcx and Bcx positive for polyorganisms. sensitive to Ertapenem/Vanco. will need 6 weeks of IV abx. weekly blood tests by PMD. tunneled catheter placed yesterday. [facility] surgery follow up for further management. 2. Acute on CKD stage III- resolved. now at baseline - Improved 3. Type 2 DM- controlled. cont current management 4. Chronic hypoxic respiratory failure secondary to COPD/asthma/pulmonary fibrosis/SAMMY- on home O2. cont inhalers 5. Microcytic anemia- Hemoglobin is stable 6. HTN-controlled. cont home management. 7. PAD, history of SFA stent- Continue Plavix 8. History of CVA 9. Hyperlipidemia- Continue Lipitor 10. History of gout- Continue Allopurinol 11. BPH- Continue Flomax 12. CAD- Continue Toprol XL, Lipitor, Plavix 13. d/c home today with VNS and home infusion company.
== END 2017-03-08 15:50 | disposition home health service (06) | DRG 854 ==
LOC: JER 16:18 → JERBED 02-26 01:30 → J7W 02-26 03:04
PROVIDERS: ADMIT Internal Medicine; ATTEND Internal Medicine
PROC: 0JBQ0ZZ Excision of Right Foot Subcutaneous Tissue and Fascia, Open Approach (ICD-10-PCS; principal; 2017-03-02 16:15)
DX: A41.02 Sepsis due to Methicillin resistant Staphylococcus aureus (principal); I69.354 Hemiplegia and hemiparesis following cerebral infarction affecting left non-dominant side; J96.11 Chronic respiratory failure with hypoxia; M86.172 Other acute osteomyelitis, left ankle and foot; N17.9 Acute kidney failure, unspecified; E11.621 Type 2 diabetes mellitus with foot ulcer; B96.1 Klebsiella pneumoniae [K. pneumoniae] as the cause of diseases classified elsewhere; B96.5 Pseudomonas (aeruginosa) (mallei) (pseudomallei) as the cause of diseases classified elsewhere; Z51.89 Encounter for other specified aftercare; E11.22 Type 2 diabetes mellitus with diabetic chronic kidney disease; I12.9 Hypertensive chronic kidney disease with stage 1 through stage 4 chronic kidney disease, or unspecified chronic kidney disease; N18.3 Chronic kidney disease, stage 3 (moderate); Z79.4 Long term (current) use of insulin; E11.40 Type 2 diabetes mellitus with diabetic neuropathy, unspecified; E11.51 Type 2 diabetes mellitus with diabetic peripheral angiopathy without gangrene; J44.9 Chronic obstructive pulmonary disease, unspecified; Z99.81 Dependence on supplemental oxygen; J45.909 Unspecified asthma, uncomplicated; G47.33 Obstructive sleep apnea (adult) (pediatric); E78.5 Hyperlipidemia, unspecified; I25.10 Atherosclerotic heart disease of native coronary artery without angina pectoris; D50.9 Iron deficiency anemia, unspecified; M10.9 Gout, unspecified; Z87.891 Personal history of nicotine dependence; Z89.422 Acquired absence of other left toe(s); E86.1 Hypovolemia; N40.0 Benign prostatic hyperplasia without lower urinary tract symptoms
CPT/HCPCS: 36415; 36558; 71010-TC; 73630-TC-RT; 73721-RT-TC; 76775-TC; 77001-TC; 80048; 80053; 81003; 82728; 83540; 83550; 83605; 83735; 84100; 84484; 85025; 85027; 85610; 85651; 85730; 86140; 86850; 86870; 86900; 86901; 86902; 87040; 87070; 87086; 87186; 87205; 93005; 93010; 93306-TC; 94640; 99285-25; C1751; G0480; J1644

== ENCOUNTER 2017-05-10 20:51 | Inpatient (IN) | payer OTHER, BC ==
[2017-05-10] MEDS ORDERED: SODIUM CHLORIDE 0.9% 1000 ML INFUS.BAG IV PRN (21:34)
--- NOTE | 2017-05-10 21:38 | PDOC ---
History of Present Illness - History of Present Illness Initial Comments: 05/10/17 22:07 The patient is a 66 year old male, with a significant past medical history of COPD (3L O2 at home), asthma, DM (well controlled), CAD, CVA (left sided weakness), hypertension, hyperlipidemia, gout, renal insufficiency, and osteomyelitis, who presents to the emergency department [facility] from home for altered mental status today. As per the patients daughter, the house door was left open and when she went inside, her father was asleep. She reports that is not like him. The daughter also reports her father seemed confused and the house was in disarray. The daughter continues to describe there was a de la garza on the stove but the sausages were all over the stove and not in the de la garza. She also adds there were receipts on the floors from his prescriptions he picked up today. The patients temperature at this time is 101F orally. He denies chest pain, shortness of breath, headache and dizziness. He denies fever, chills, nausea, vomit, diarrhea and constipation. He denies dysuria, frequency, urgency and hematuria. Allergies: NKDA Social history: Pt denies toxic habits PCP - Dr. Johnny Giron Vascular - Dr. Solano <Tram Reyes - Last Filed: 05/11/17 01:31> <Angeline Turner - Last Filed: 05/15/17 17:48> - General Chief Complaint: Altered Mental Status Stated Complaint: ALTER MENTAL Time Seen by Provider: 05/10/17 21:03 Past History <Tram Reyes - Last Filed: 05/11/17 01:31> - Past Medical History Anemia: No Asthma: Yes Cancer: No Cardiac Disorders: Yes (CAD) CVA: Yes (L sided weakness) COPD: Yes (3L O2 NC AT HOME) CHF: No Dementia: No Diabetes: Yes GI Disorders: No Disorders: Yes HTN: Yes Hypercholesterolemia: Yes Liver Disease: No Seizures: No Thyroid Disease: No - Surgical History Abdominal Surgery: No Appendectomy: Yes Cardiac Surgery: No Cholecystectomy: Yes Lung Surgery: No Neurologic Surgery: No Orthopedic Surgery: (Left toe amputation) - Immunization History Immunization Up to Date: Yes - Suicide/Smoking/Psychosocial Hx Smoking Status: No Smoking History: Unknown if ever smoked Have you smoked in the past 12 months: No Number of Cigarettes Smoked Daily: 10 If you are a former smoker, when did you quit?: May 2014 Information on smoking cessation initiated: No 'Breaking Loose' booklet given: 08/22/15 Hx Alcohol Use: No Drug/Substance Use Hx: No Substance Use Type: None Hx Substance Use Treatment: No <Angeline Turner - Last Filed: 05/15/17 17:48> - Past Medical History Allergies/Adverse Reactions: Allergies Allergy/AdvReac Type Severity Reaction Status Date / Time No Known Drug Allergies Allergy Verified 05/10/17 21:29 Home Medications: Ambulatory Orders Allopurinol 300 mg PO DAILY 05/11/16 Atorvastatin Ca [Lipitor] 20 mg PO DAILY 05/11/16 Linagliptin [Tradjenta] 5 mg PO DAILY 05/11/16 Nystatin Powder [Nystop Powder -] 60 gm TP DAILY 05/11/16 Peg 400/Hypromellose/Glycerin [Artificial Tears Drops] 1 drop OU DAILY 05/11/16 Tamsulosin HCl [Flomax -] 0.4 mg PO DAILY 05/11/16 Trazodone HCl [Desyrel -] 50 mg PO HS 05/11/16 Losartan Potassium [Cozaar -] 25 mg PO DAILY tablet 07/19/16 Metoprolol Succinate [Toprol XL -] 25 mg PO DAILY tab.sr.24h 07/19/16 Oxycodone HCl [Roxicodone -] 5 mg PO Q8H PRN #30 tablet MDD 3 07/19/16 Memantine HCl [Namenda Xr] 7 mg PO DAILY 07/22/16 Aclidinium [place] [Tudorza -] 1 puff IH BID inhaler 10/29/16 Amlodipine Besylate [Norvasc -] 5 mg PO DAILY tablet 10/29/16 Clopidogrel Bisulfate [Plavix -] 75 mg PO DAILY tablet 10/29/16 Salmeterol/Fluticasone [Advair 100Mcg/50Mcg -] 1 puff IH BID inhaler 10/29/16 Ferrous Sulfate 325 mg PO BID 01/25/17 Gabapentin 300 mg PO TID 01/25/17 Oxybutynin Chloride [Ditropan Xl] 5 mg PO DAILY 01/25/17 Pantoprazole Sodium [Protonix] 40 mg PO DAILY 01/25/17 Pramipexole Dihydrochloride [Mirapex -] 0.5 mg PO HS 01/25/17 Furosemide [Lasix] 20 mg PO DAILY #0 mg 03/08/17 Insulin (Levemir) [Levemir Flexpen -] 22 units SQ HS #1 units 03/08/17 Sitagliptin Phosphate [Januvia -] 50 mg PO DAILY@0700 tablet 03/08/17 Albuterol 2.5/Ipratropium 0.5 [Duoneb -] 1 neb NEB Q4H PRN 05/11/17 Ergocalciferol (Vitamin D2) [Vitamin D2] 50,000 unit PO WEEKLY 05/11/17 Pregabalin [Lyrica -] 150 mg PO BID 05/11/17 Review of Systems - Review of Systems Able to Perform ROS?: Yes Comments:: 05/10/17 22:07 CONSTITUTIONAL: (+) fever, Absent: chills, diaphoresis, generalized weakness, malaise, loss of appetite HEENT: Absent: rhinorrhea, nasal congestion, throat pain, throat swelling, difficulty swallowing, mouth swelling, ear pain, eye pain, visual Changes CARDIOVASCULAR: Absent: chest pain, syncope, palpitations, irregular heart rate, lightheadedness , peripheral edema RESPIRATORY: Absent: cough, shortness of breath, dyspnea with exertion, orthopnea, wheezing, stridor, hemoptysis GASTROINTESTINAL: Absent: abdominal pain, abdominal distension, nausea, vomiting, diarrhea, constipation, melena, hematochezia GENITOURINARY: Absent: dysuria, frequency, urgency, hesitancy, hematuria, flank pain, genital pain MUSCULOSKELETAL: Absent: myalgia, arthralgia, joint swelling SKIN: Absent: rash, itching, pallor HEMATOLOGIC/IMMUNOLOGIC: Absent: easy bleeding, easy bruising, lymphadenopathy, frequent infections ENDOCRINE: Absent: unexplained weight gain, unexplained weight loss, heat intolerance, cold intolerance NEUROLOGIC: Absent: headache, focal weakness or paresthesias, dizziness, unsteady gait, seizure, mental status changes, bladder or bowel incontinence PSYCHIATRIC: Absent: anxiety, depression, suicidal or homicidal ideation, hallucinations. <Tram Reyes - Last Filed: 05/11/17 01:31> *Physical Exam - Vital Signs Last Vital Signs Temp Pulse Resp BP Pulse Ox 101.2 F H 90 14 105/59 98 05/10/17 21:29 05/10/17 21:29 05/10/17 21:29 05/10/17 21:29 05/10/17 21:29 - Physical Exam Comments: 05/10/17 22:09 GENERAL: (+) conversant, poor historian. Well developed, well nourished. Awake and alert. No acute distress. HEENT: (+) Dry mucous membranes. Normocephalic, atraumatic. PERRLA, EOMI. No conjunctival pallor. Sclera are non-icteric. Oropharynx is clear. NECK: Supple. Full ROM. No JVD. Carotid pulses 2+ and symmetric, without bruits. No thyromegaly. No lymphadenopathy. CARDIOVASCULAR: (+) Slightly tachycardic. Regular rhythm. No murmurs, rubs, or gallops. Distal pulses are 2+ and symmetric. PULMONARY: No evidence of respiratory distress. Lungs clear to auscultation bilaterally. No wheezing, rales or rhonchi. ABDOMINAL: Soft. Non-tender. Non-distended. No rebound or guarding. No organomegaly. Normoactive bowel sounds. MUSCULOSKELETAL Normal range of motion at all joints. No bony deformities or tenderness. No CVA tenderness. EXTREMITIES: (+) charcot joint and deformed left ankle (CHRONIC). Chronic venous stasis bilateral LE. No cyanosis. No clubbing. No edema. No calf tenderness. SKIN: (+) hot to touch and dry. Normal capillary refill. No rashes. No jaundice. NEUROLOGICAL: (+) conversant, poor historian. Alert, awake, appropriate. Cranial nerves 2-12 intact. Normoreflexic in the upper and lower extremities. Normal speech. Toes are down-going bilaterally. Ambulates with rollator PSYCHIATRIC: Cooperative. Good eye contact. Appropriate mood and affect. <Tram Reyes - Last Filed: 05/11/17 01:31> - Vital Signs Last Vital Signs Temp Pulse Resp BP Pulse Ox 101.2 F H 90 14 105/59 98 05/10/17 21:29 05/10/17 21:29 05/10/17 21:29 05/10/17 21:29 05/10/17 21:29 <Angeline Turner - Last Filed: 05/15/17 17:48> ED Treatment Course - LABORATORY CBC & Chemistry Diagram: 05/10/17 22:26 05/10/17 22:26 - RADIOLOGY Radiograph Interpretation: EXAM#: TYPE/EXAM: RESULT: [id number] RAD/CHEST X-RAY PORTABLE* Rule out sepsis Portable chest x-ray, in upright position Since prior chest x-ray dated 02/25/2017, the cardiac silhouette remains within normal limits in size. There are mild bilateral perihilar increased lung markings. The mediastinum and visualized osseous structures appear intact Impression: No significant interval change or acute lung disease is present. Reported By: Marilyn Meng MD 05/10/17 1680 <Tram Reyes - Last Filed: 05/11/17 01:31> - LABORATORY CBC & Chemistry Diagram: 05/15/17 09:00 05/15/17 09:00 - RADIOLOGY Radiology Studies Ordered: Category Date Time Status CHEST X-RAY PORTABLE* [RAD] Stat Radiology 05/10/17 21:34 Ordered <Angeline Turner - Last Filed: 05/15/17 17:48> Medical Decision Making - Medical Decision Making 05/11/17 01:36 66-year-old male brought in by ambulance from home for fever. His found the patient slightly confused this afternoon -pt found to be febrile -IMP lactic acidosis,chronic osteo R foot,admitted to med/surg plan antibiotics and ID consultation 05/15/17 17:45 05/15/17 17:47 <Angeline Turner - Last Filed: 05/15/17 17:48> *DC/Admit/Observation/Transfer - Attestations Scribe Attestion: 05/10/17 22:13 Documentation prepared by Tram Reyes, acting as medical education manager for Angeline Turner MD <Tram Reyes - Last Filed: 05/11/17 01:31> - Discharge Dispostion Admit: Yes <Angeline Turner - Last Filed: 05/15/17 17:48> Diagnosis at time of Disposition: COPD exacerbation, Hypoxemia, JESÚS (acute kidney injury), Renal insufficiency Sepsis Qualifiers: Sepsis type: sepsis due to unspecified organism Qualified Code(s): A41.9 - Sepsis, unspecified organism - Referrals
[2017-05-10] MEDS ORDERED: ACETAMINOPHEN 325 MG TABLET (FP) PO ONE (21:41)
[2017-05-10 23:26] LABS: VENOUS PH 7.46 (7.32-7.42)
[2017-05-10 23:27] LABS: VENOUS BLOOD GAS HCO3 22.2 meq/L (19-25)
[2017-05-10 23:41] LABS: MCH 21.1 pg (25.7-33.7); MCHC 30.4 g/dl (32.0-35.9); MEAN CELL VOLUME 69.5 fl (80-96); RDW 20.1 % (11.9-15.9); WHITE BLOOD COUNT 24.8 K/mm3 (4.0-10.0)
[2017-05-10] MEDS ORDERED: ACETAMINOPHEN 325 MG TABLET (FP) ONE (23:43)
[2017-05-11 00:05] LABS: INR 1.12 (0.82-1.09); PROTHROMBIN TIME (PATIENT) 12.3 SEC (9.98-11.88)
[2017-05-11 00:08] LABS: ACTIVATED PTT 24.6 SECONDS (26.9-34.4)
[2017-05-11 00:15] LABS: ALBUMIN 3.2 g/dl (3.4-5.0); ANION GAP 11 (8-16); BILIRUBIN,TOTAL 0.5 mg/dL (0.2-1.0); CALCIUM 8.4 mg/dL (8.5-10.1); CO2 23 mmol/L (21-32); CREATININE 2.3 mg/dL (0.7-1.3); GLUCOSE,RANDOM 133 mg/dL (74-106); SGOT/AST 27 U/L (15-37); SGPT/ALT 20 U/L (12-78); TOT PROT 7.2 g/dl (6.4-8.2)
[2017-05-11 00:18] LABS: ALK PHOS 147 U/L (45-117); CPK 675 IU/L (39-308); TROPONIN I 0.02 ng/ml (0.00-0.05)
[2017-05-11 00:56] LABS: PLATELET COUNT 135 K/MM3 (134-434); PLATELET ESTIMATE ADEQUATE (NORMAL); TOTAL CELLS COUNTED 100
[2017-05-11 00:57] LABS: ANISOCYTOSIS 1+; HYPOCHROMIA 2+; MICROCYTOSIS 1+
[2017-05-11] MEDS ORDERED: PIPERACILLIN/TAZOB 3.375 GM 3.375 GM in DEXTROSE 5%-WATER - 50 ML IVPB ONE (01:04)
[2017-05-11] MEDS ORDERED: VANCOMYCIN 1,000 MG in DEXTROSE 5%-WATER - 250 ML IVPB STA (01:05)
[2017-05-11] MEDS ORDERED: PIPERACILLIN/TAZOB 3.375 GM 50 ML IVPB ONE (01:18)
[2017-05-11] MEDS ORDERED: SODIUM CHLORIDE 1,000 ML IV STA (01:21)
[2017-05-11] MEDS ORDERED: VANCOMYCIN 1 GRAM (PRE-DOCKED) 250 ML IVPB ONE (02:11)
--- NOTE | 2017-05-11 02:18 | PN ---
Teaching Attending Note Name of Resident: Onur Milligan ATTENDING PHYSICIAN STATEMENT I saw and evaluated the patient. I reviewed the resident's note and discussed the case with the resident. I agree with the resident's findings and plan as documented. SUBJECTIVE: 66 yo F with pmhx of COPD (3L), asthma, DM, CAD, CVA with residual L. Sided weakness, htn, hld, gout, renal insufficiency and osteomyelitis who was BIBA for AMS and lethargy, Pt.s daughter called EMS, when she saw her father's house in disarray and he was increasingly sleepy. As per pt. he has had poor oral intake past few days and has only been drinking teas. Denies any chest pain or pressure. Denies fevers or chills. No N/V/D. No urinary frequency or urgency. Denies any falls or loss of consciousness. OBJECTIVE: Physical: VS: Vital Signs Period Temp Pulse Resp BP Sys/Cintron Pulse Ox Last 24 Hr 101.2 F 90 14 105/59 98 GEN: NAD, Resting in bed, AA0X3 HEENT: NCAT, PERRL, Mucous membranes appear dry, throat without erythema or exudayes CARD: RRR S1, S2 RESP: CTAB ABD: BSx4, NTD to palpation EXT: - C/C/E CBCD WBC 24.8 K/mm3 (4.0-10.0) H D 05/10/17 22:26 RBC 4.95 M/mm3 (4.00-5.60) 05/10/17 22:26 Hgb 10.4 GM/dL (11.7-16.9) L 05/10/17 22:26 Hct 34.4 % (35.4-49) L 05/10/17 22:26 MCV 69.5 fl (80-96) L 05/10/17 22:26 MCHC 30.4 g/dl (32.0-35.9) L 05/10/17 22:26 RDW 20.1 % (11.9-15.9) H 05/10/17 22:26 Plt Count 135 K/MM3 (134-434) D 05/10/17 22:26 MPV 10.0 fl (7.5-11.1) D 05/10/17 22:26 CMP Sodium 138 mmol/L (136-145) 05/10/17 22:26 Potassium 4.6 mmol/L (3.5-5.1) 05/10/17 22:26 Chloride 104 mmol/L (98-107) 05/10/17 22:26 Carbon Dioxide 23 mmol/L (21-32) 05/10/17 22:26 Anion Gap 11 (8-16) 05/10/17 22:26 BUN 39 mg/dL (7-18) H D 05/10/17 22:26 Creatinine 2.3 mg/dL (0.7-1.3) H D 05/10/17 22:26 Creat Clearance w eGFR 28.59 (>60) 05/10/17 22:26 Random Glucose 133 mg/dL (74-106) H D 05/10/17 22:26 Calcium 8.4 mg/dL (8.5-10.1) L 05/10/17 22:26 Total Bilirubin 0.5 mg/dL (0.2-1.0) 05/10/17 22:26 AST 27 U/L (15-37) D 05/10/17 22:26 ALT 20 U/L (12-78) 05/10/17 22:26 Alkaline Phosphatase 147 U/L (45-117) H D 05/10/17 22:26 Total Protein 7.2 g/dl (6.4-8.2) 05/10/17 22:26 Albumin 3.2 g/dl (3.4-5.0) L 05/10/17 22:26 CARDIAC ENZYMES Creatine Kinase 675 IU/L (39-308) H 05/10/17 22:26 Troponin I 0.02 ng/ml (0.00-0.05) 05/10/17 22:26 CXR- No acute process Home Medications Medication Instructions Recorded Allopurinol 300 mg PO DAILY 05/11/16 Atorvastatin Ca [Lipitor] 20 mg PO DAILY 05/11/16 Linagliptin [Tradjenta] 5 mg PO DAILY 05/11/16 Nystatin Powder [Nystop Powder -] 60 gm TP DAILY 05/11/16 Peg 400/Hypromellose/Glycerin 1 drop OU DAILY 05/11/16 [Artificial Tears Drops] Tamsulosin HCl [Flomax -] 0.4 mg PO DAILY 05/11/16 Trazodone HCl [Desyrel -] 50 mg PO HS 05/11/16 Losartan Potassium [Cozaar -] 25 mg PO DAILY tablet 07/19/16 Metoprolol Succinate [Toprol XL -] 25 mg PO DAILY tab.sr.24h 07/19/16 Oxycodone HCl [Roxicodone -] 5 mg PO Q8H PRN #30 tablet MDD 3 07/19/16 Memantine HCl [Namenda Xr] 7 mg PO DAILY 07/22/16 Aclidinium [place] [Tudorza -] 1 puff IH BID inhaler 10/29/16 Amlodipine Besylate [Norvasc -] 5 mg PO DAILY tablet 10/29/16 Clopidogrel Bisulfate [Plavix -] 75 mg PO DAILY tablet 10/29/16 Salmeterol/Fluticasone [Advair 1 puff IH BID inhaler 10/29/16 100Mcg/50Mcg -] Ferrous Sulfate 325 mg PO BID 01/25/17 Gabapentin 300 mg PO TID 01/25/17 Oxybutynin Chloride [Ditropan Xl] 5 mg PO DAILY 01/25/17 Pantoprazole Sodium [Protonix] 40 mg PO DAILY 01/25/17 Pramipexole Dihydrochloride 0.5 mg PO BID 01/25/17 [Mirapex -] Ertapenem Sodium [Invanz -] 1 gm IVPB DAILY 35 Days 03/08/17 Furosemide [Lasix] 20 mg PO DAILY #0 mg 03/08/17 Insulin (Levemir) [Levemir Flexpen 22 units SQ HS #1 units 03/08/17 -] Sitagliptin Phosphate [Januvia -] 50 mg PO DAILY@0700 tablet 03/08/17 Vancomycin 750 mg IVPB DAILY 35 Days 03/08/17 ASSESSMENT AND PLAN: 66 yo M with pmhx of DM, HTN, COPD on 3L, PVD, Neuropathy who presents with ams , being admitted for severe sepsis 1.) AMS - Now Resolved - Most likely due to sepsis 2.) Severe Sepsis - [place] Cx - Ua, Ucx - IVF - Repeat LA - Vanco/Zosyn (renally dosed) - ID consult 2.) COPD on Home 02 - C/W Home meds 3.) CAD - C/W home meds - HOLD Arb- Arf 4.) JESÚS on CKD - Hold lasix as pt. seems volume depleated - Gentle IVF - Avoid Nephrotoxins - Trend Cr - Hold ARB 5.) DM - FS - RAISS - Diabetic diet - Levemir 6.) Gout - Renally Dose Allopurinol to 200mg daily for clearance 7.) Hx of Osteomyelitis R. Foot - S/P wound care - Wound healing well - C/W Wound Care- No evidence of new active infection 8.) Microcytic Anemia - Fe Studies 9.) HTN - Mildly Hypotensive here - Hold meds 9.) Dvt Ppx - Heparin [address] in Med- Sx
[2017-05-11 03:25] LABS: URINE APPEARANCE SLCLOUDY; URINE BILIRUBIN NEGATIVE (NEGATIVE); URINE BLOOD NEGATIVE (NEGATIVE); URINE COLOR YELLOW; URINE GLUCOSE (UA) NEGATIVE (NEGATIVE); URINE KETONE NEGATIVE (NEGATIVE); URINE NITRITE NEGATIVE (NEGATIVE); URINE PROTEIN NEGATIVE (NEGATIVE); URINE UROBILINOGEN NEGATIVE mg/dL (0.2-1.0)
[2017-05-11] MEDS ORDERED: HEPARIN NA (PORCINE) 5,000 UNITS/ML 1ML VIAL ONE (03:40)
[2017-05-11 03:44] LABS: ARTERIAL BLOOD GAS HCO3 23.2 meq/L (22-26); ARTERIAL BLOOD GAS PO2 81.2 mmHg (80-100); ARTERIAL BLOOD GAS pH 7.34 (7.35-7.45)
[2017-05-11 03:45] LABS: ALLENS TEST POSITIVE
[2017-05-11 03:46] LABS: ART PUNCT SITE LEFT BRACHIAL; LPM/O2% 3LPM; METHEMOGLOBIN 0.7 % (0.4-1.5); PT. ON O2? YES; TYPE OF O2 NASAL O2
[2017-05-11] MEDS: HEPARIN NA (PORCINE) 5,000 UNITS/ML 1ML VIAL SQ SCH ×3 (03:52→18:00)
--- NOTE | 2017-05-11 04:05 | HP ---
CHIEF COMPLAINT: AMS PCP: Dr. Johnny Waterman HISTORY OF PRESENT ILLNESS: Pt is a 66M w/ PMH HTN, DM, HLD, CVA (L residual weakness), PVD who was BIBA to the ED after being found by his daughter sleeping on the hallway floor in his house. Daughter stated that the house was in disarray, which was very unlike the patient. Pt states that he does not drink much water and frequently feels weak. Pt has not had a BM in 2-3 days. Pt denies headache, nausea, vomiting, fall, LOC, fever, chills, diarrhea. ER course was notable for: (1) found to be septic (WBC 24.8, temp 101.2). Hypotension in 60s, resolved to 80s after 1 L NS. LA 2.3 (2) JESÚS (tribunal member 2.3) (3) Recent Travel: denies PAST MEDICAL HISTORY: HTN, DM, HLD, CVA (L weakness), DM, PVD, GERD, COPD, Gout PAST SURGICAL HISTORY: toe amputations, appendectomy, ulcer debriedment, thrombectomy of leg vessels Social History: Smoking: former from age 18 to 65 1 ppd Alcohol: current. Drinks vodka and cr Drugs: denies Family History: denies Allergies No Known Drug Allergies Allergy (Verified 05/10/17 21:29) HOME MEDICATIONS: Home Medications Medication Instructions Recorded Allopurinol 300 mg PO DAILY 05/11/16 Atorvastatin Ca [Lipitor] 20 mg PO DAILY 05/11/16 Linagliptin [Tradjenta] 5 mg PO DAILY 05/11/16 Nystatin Powder [Nystop Powder -] 60 gm TP DAILY 05/11/16 Peg 400/Hypromellose/Glycerin 1 drop OU DAILY 05/11/16 [Artificial Tears Drops] Tamsulosin HCl [Flomax -] 0.4 mg PO DAILY 05/11/16 Trazodone HCl [Desyrel -] 50 mg PO HS 05/11/16 Losartan Potassium [Cozaar -] 25 mg PO DAILY tablet 07/19/16 Metoprolol Succinate [Toprol XL -] 25 mg PO DAILY tab.sr.24h 07/19/16 Oxycodone HCl [Roxicodone -] 5 mg PO Q8H PRN #30 tablet MDD 3 07/19/16 Memantine HCl [Namenda Xr] 7 mg PO DAILY 07/22/16 Aclidinium [place] [Tudorza -] 1 puff IH BID inhaler 10/29/16 Amlodipine Besylate [Norvasc -] 5 mg PO DAILY tablet 10/29/16 Clopidogrel Bisulfate [Plavix -] 75 mg PO DAILY tablet 10/29/16 Salmeterol/Fluticasone [Advair 1 puff IH BID inhaler 10/29/16 100Mcg/50Mcg -] Ferrous Sulfate 325 mg PO BID 01/25/17 Gabapentin 300 mg PO TID 01/25/17 Oxybutynin Chloride [Ditropan Xl] 5 mg PO DAILY 01/25/17 Pantoprazole Sodium [Protonix] 40 mg PO DAILY 01/25/17 Pramipexole Dihydrochloride 0.5 mg PO BID 01/25/17 [Mirapex -] Ertapenem Sodium [Invanz -] 1 gm IVPB DAILY 35 Days 03/08/17 Furosemide [Lasix] 20 mg PO DAILY #0 mg 03/08/17 Insulin (Levemir) [Levemir Flexpen 22 units SQ HS #1 units 03/08/17 -] Sitagliptin Phosphate [Januvia -] 50 mg PO DAILY@0700 tablet 03/08/17 Vancomycin 750 mg IVPB DAILY 35 Days 03/08/17 REVIEW OF SYSTEMS CONSTITUTIONAL: generalized weakness Absent: fever, chills, diaphoresis, , malaise, loss of appetite, weight change HEENT: Absent: rhinorrhea, nasal congestion, throat pain, throat swelling, difficulty swallowing, mouth swelling, ear pain, eye pain, visual changes CARDIOVASCULAR: lightheadedness Absent: chest pain, syncope, palpitations, irregular heart rate, , peripheral edema RESPIRATORY: Absent: cough, shortness of breath, dyspnea with exertion, orthopnea, wheezing, stridor, hemoptysis GASTROINTESTINAL:constipation Absent: abdominal pain, abdominal distension, nausea, vomiting, diarrhea, , melena, hematochezia GENITOURINARY: Absent: dysuria, frequency, urgency, hesitancy, hematuria, flank pain, genital pain MUSCULOSKELETAL: Absent: myalgia, arthralgia, joint swelling, back pain, neck pain SKIN: Absent: rash, itching, pallor HEMATOLOGIC/IMMUNOLOGIC: Absent: easy bleeding, easy bruising, lymphadenopathy, frequent infections ENDOCRINE: Absent: unexplained weight gain, unexplained weight loss, heat intolerance, cold intolerance NEUROLOGIC: Absent: headache, focal weakness or paresthesias, dizziness, unsteady gait, seizure, mental status changes, bladder or bowel incontinence PSYCHIATRIC: Absent: anxiety, depression, suicidal or homicidal ideation, hallucinations. PHYSICAL EXAMINATION Vital Signs - 24 hr 05/10/17 05/11/17 05/11/17 21:29 01:30 01:45 Temperature 101.2 F H Pulse Rate 90 Pulse Rate [ 71 Left Radial] Respiratory 14 18 Rate Blood Pressure 105/59 89/65 Blood Pressure 89/65 [Left Arm] O2 Sat by Pulse 98 96 Oximetry (%) GENERAL: Awake, alert, and fully oriented, in no acute distress. HEAD: Normal with no signs of trauma. EYES: Pupils equal, round and reactive to light, extraocular movements intact, sclera anicteric, conjunctiva clear. No lid lag. EARS, NOSE, THROAT: oropharynx clear without exudates. Dry mucous membranes. NECK: Normal range of motion, supple without lymphadenopathy, JVD, or masses. No bruits LUNGS: Breath sounds equal, clear to auscultation bilaterally. No wheezes, and no crackles. No accessory muscle use. HEART: Distant sounds. Regular rate and rhythm, normal S1 and S2 without murmur , rub or gallop. ABDOMEN: obese. Soft, nontender, not distended, normoactive bowel sounds, no guarding, no rebound, no masses. No hepatomegaly or splenomegaly. MUSCULOSKELETAL: Normal range of motion at all joints. No bony deformities or tenderness. No CVA tenderness. UPPER EXTREMITIES: 2+ pulses, warm, well-perfused. No cyanosis. No clubbing. No peripheral edema. LOWER EXTREMITIES: 2+ pulses, warm, well-perfused. No calf tenderness. No peripheral edema. Chronic venous stasis changes. feet s/p ulcer debriedment b/ l. NEUROLOGICAL: Cranial nerves II-XII intact. Normal speech. PSYCHIATRIC: Cooperative. Good eye contact. Appropriate mood and affect. SKIN: Warm, dry, normal turgor, no rashes or lesions noted, normal capillary refill. Laboratory Results - last 24 hr 05/10/17 05/10/17 05/10/17 22:26 22:26 22:26 WBC 24.8 H D RBC 4.95 Hgb 10.4 L Hct 34.4 L MCV 69.5 L MCH 21.1 L MCHC 30.4 L RDW 20.1 H Plt Count 135 D MPV 10.0 D Total Counted 100 Neutrophils % No Result Required. Neutrophils % (Manual) 89 H Band Neuts % (Manual) 2 Lymphocytes % No Result Required. Lymphocytes % (Manual) 4 L Monocytes % (Manual) 4 Eosinophils % (Manual) 1 Hypochromia 2+ Platelet Estimate Adequate Platelet Comment Few large plts Anisocytosis 1+ Microcytosis 1+ PT with INR 12.30 H INR 1.12 PTT (Actin FS) 24.6 L VBG pH POC VBG pCO2 POC VBG pO2 Mixed VBG HCO3 Sodium 138 Potassium 4.6 Chloride 104 Carbon Dioxide 23 Anion Gap 11 BUN 39 H D Creatinine 2.3 H D Creat Clearance w eGFR 28.59 Random Glucose 133 H D Lactic Acid Calcium 8.4 L Total Bilirubin 0.5 AST 27 D ALT 20 Alkaline Phosphatase 147 H D Creatine Kinase 675 H Creatine Kinase Index 0.5 CK-MB (CK-2) 3.923 H Troponin I 0.02 Total Protein 7.2 Albumin 3.2 L Urine Color Urine Appearance Urine pH Urine Protein Urine Glucose (UA) Urine Ketones Urine Blood Urine Nitrite Urine Bilirubin Urine Urobilinogen Blood Type Antibody Screen 05/10/17 05/10/17 05/10/17 22:26 22:26 23:20 WBC RBC Hgb Hct MCV MCH MCHC RDW Plt Count MPV Total Counted Neutrophils % Neutrophils % (Manual) Band Neuts % (Manual) Lymphocytes % Lymphocytes % (Manual) Monocytes % (Manual) Eosinophils % (Manual) Hypochromia Platelet Estimate Platelet Comment Anisocytosis Microcytosis PT with INR INR PTT (Actin FS) VBG pH 7.46 H POC VBG pCO2 32.0 L D POC VBG pO2 61.7 H D Mixed VBG HCO3 22.2 Sodium Potassium Chloride Carbon Dioxide Anion Gap BUN Creatinine Creat Clearance w eGFR Random Glucose Lactic Acid 2.3 H* Calcium Total Bilirubin AST ALT Alkaline Phosphatase Creatine Kinase Creatine Kinase Index CK-MB (CK-2) Troponin I Total Protein Albumin Urine Color Urine Appearance Urine pH Urine Protein Urine Glucose (UA) Urine Ketones Urine Blood Urine Nitrite Urine Bilirubin Urine Urobilinogen Blood Type B POSITIVE Antibody Screen Negative 05/11/17 02:25 WBC RBC Hgb Hct MCV MCH MCHC RDW Plt Count MPV Total Counted Neutrophils % Neutrophils % (Manual) Band Neuts % (Manual) Lymphocytes % Lymphocytes % (Manual) Monocytes % (Manual) Eosinophils % (Manual) Hypochromia Platelet Estimate Platelet Comment Anisocytosis Microcytosis PT with INR INR PTT (Actin FS) VBG pH POC VBG pCO2 POC VBG pO2 Mixed VBG HCO3 Sodium Potassium Chloride Carbon Dioxide Anion Gap BUN Creatinine Creat Clearance w eGFR Random Glucose Lactic Acid Calcium Total Bilirubin AST ALT Alkaline Phosphatase Creatine Kinase Creatine Kinase Index CK-MB (CK-2) Troponin I Total Protein Albumin Urine Color Yellow Urine Appearance Slcloudy Urine pH 5.0 Urine Protein Negative Urine Glucose (UA) Negative Urine Ketones Negative Urine Blood Negative Urine Nitrite Negative Urine Bilirubin Negative Urine Urobilinogen Negative Blood Type Antibody Screen ASSESSMENT/PLAN: 66 y/o M w/ PMH HTN, DM, HLD, CVA (L weakness), DM, PVD, GERD, COPD (on 3L), gout, neuropathy who presented to ED with AMS. Pt is being admitted for severe sepsis. #AMS -resolved -likely 2/2 sepsis #Severe sepsis, unclear source -w/ AMS, weakness, decreased PO intake -WBC 24.8, temp 101.2, LA 2.3 -NS -f/u labs -Vanc, Zosyn renally dosed -BCx, UCx, Repeat LA -ID consult #COPD -c/w O2 3L -c/w home meds #CAD -c/w home meds: Atorvastatin, plavix -hold ARB #JESÚS on CKD -[employer] 2.3 unclear baseline -hold lasix, ARB -f/u labs -CrCl 31 #DM -BGM -Levemir + ISS -DM diet #Gout -Allopurinol renal dosing at 200 daily #S/p osteo in R foot -wound CDI -c/w wound care #Microcytic anemia -Fe studies #HTN -mild hypotension in ED -hold HTN meds for now (norvasc, metoprolol) #GERD -Protonix #BPH -hold tamsulosin in setting of low BP #insomnia -trazodone PRN #constipation -colace #FEN -NS @ 250ml Q20M -lytes wnl -DM diet #Dispo -admit to med surg for severe sepsis Onur Milligan MD PGY-1 case discussed with senior Visit type - Emergency Visit Emergency Visit: Yes ED Registration Date: 05/11/17 Care time: The patient presented to the Emergency Department on the above date and was hospitalized for further evaluation of their emergent condition. - New Patient This patient is new to me today: Yes Date on this admission: 05/11/17 - Critical Care Critical Care patient: No
[2017-05-11] MEDS ORDERED: MEMANTINE HCL 5 MG TABLET (UD) PO ONE (04:17)
[2017-05-11] MEDS ORDERED: traZODone HCL 50 MG TABLET (FP) PO PRN (04:22)
[2017-05-11 06:19] LABS: ALK PHOS 123 U/L (45-117); ANION GAP 8 (8-16); BILIRUBIN,TOTAL 0.6 mg/dL (0.2-1.0); CALCIUM 8.1 mg/dL (8.5-10.1); CO2 25 mmol/L (21-32); CREATININE 2.4 mg/dL (0.7-1.3); GLUCOSE,RANDOM 148 mg/dL (74-106); MAGNESIUM 1.7 mg/dL (1.8-2.4); PHOSPHOROUS 3.8 mg/dL (2.5-4.9); SGOT/AST 36 U/L (15-37); SGPT/ALT 21 U/L (12-78); TOT PROT 6.8 g/dl (6.4-8.2)
[2017-05-11] MEDS: INSULIN SLIDING SCALE (NOVOLOG) 1 VIAL SQ SCH ×4 (07:25→21:54)
[2017-05-11] MEDS: INSULIN DETEMIR 100 UNITS/ML MDV SQ SCH ×2 (07:55→18:17)
[2017-05-11] MEDS ORDERED: PIPERACILLIN/TAZOB 2.25 GM 2.25 GM in DEXTROSE 5%-WATER - 50 ML IVPB SCH (09:00)
--- NOTE | 2017-05-11 09:07 | PN ---
Progress Note (short form) - Note Progress Note: ID Consult dictated 66 y/o diabetic male with recent hx recurrent MRSA bacteremia, chronic osteomyelitis R foot, now admitted with altered mental status. Febrile, hypotensive in ER with leukocytosis and lactic acidosis Sepsis ? source Toxic metabolic encephalopathy Lactic acidosis Fever/ leukocytosis Azotemia Pending sepsis workup, empiric zosyn/ vancomycin
--- NOTE | 2017-05-11 09:58 | CONS ---
DATE OF CONSULTATION: DATE OF DICTATION: 05/11/2017 HISTORY OF PRESENT ILLNESS: The patient is a 66-year-old male with a recent history of recurrent MRSA bacteremia, history of chronic osteomyelitis of the right foot, now evaluated for sepsis. The patient was admitted to the hospital after he was found at home by family members to be confused. He was evaluated in the emergency room, where his temperature was 101.2. He was hypotensive with a systolic blood pressure in the 60s. He was also noted to have an elevated white blood cell count and lactic acidosis. The patient was given IV fluid hydration. Cultures were obtained. He was empirically treated with vancomycin and Zosyn. He is awake and responsive. He denies any focal complaint. He denies any recent febrile illness or shaking chills. No complaints of foot pain. He completed a 6-week course of vancomycin and Zosyn for osteomyelitis of the right foot complicated by MRSA bacteremia. He denies any chest pain, shortness of breath, cough, or sputum production. No dysuria or hematuria. He denies vomiting or diarrhea. Denies any recurrent foot infections. PAST MEDICAL HISTORY: Positive for recurrent foot infections with osteomyelitis of the right foot, history of COPD, asthma, obstructive sleep apnea. He is oxygen dependent. Past medical history also includes diabetes mellitus, coronary artery disease, stroke with left hemiparesis, hypertension, hyperlipidemia, gouty arthritis, chronic kidney disease, recent osteomyelitis of the right foot. PAST SURGICAL HISTORY: Status post amputation of the left 2nd toe, past history of right foot surgery. ALLERGIES: No known allergies. MEDICATIONS: Include Advair, vancomycin, Zosyn, heparin, Neurontin, trazodone, Zyloprim, DuoNeb, Colace, Lipitor, NovoLog, Plavix, Protonix. SOCIAL HISTORY: He lives at home. 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 He is a former smoker. He has had recent hospitalizations. REVIEW OF SYSTEMS: Neurologic: Positive for altered mental status and history of stroke with left hemiparesis. No seizure activity. Cardiac: Negative chest pain or palpitations. Respiratory: Negative cough or sputum production. Gastrointestinal: Negative vomiting or diarrhea. Genitourinary: Negative for urinary tract infection. LABORATORY DATA: White count 24.8, hematocrit 34.4, platelet count 135. BUN 40, creatinine 2.4, total bilirubin 0.6, alkaline phosphatase 123, AST 36, lactic acid 2.3. Influenza swab negative. Chest x-ray negative for acute infiltrate. Previous cultures positive for MRSA in the blood from September and January. History of mixed pathogens in wound cultures including MRSA, ESBL, and VRE. PHYSICAL EXAMINATION: General: He is awake. He is in no acute distress. He is obese. Vital Signs: Temperature 97.8, T-max 101.2. Blood pressure 110/56, pulse 63, regular. Respirations 18 per minute. HEENT: Sclerae are anicteric. Cardiovascular: Heart sounds S1, S2. Lungs: Scattered rhonchi. Abdomen: Obese, soft. No tenderness elicited. No mass, rebound, or rigidity. Extremities: Examination of the right foot, there is a healed surgical wound present on the medial aspect of the right foot. There is no purulent wound drainage. There is a left foot Charcot joint with amputation of the left 2nd toe. IMPRESSION: A 66-year-old diabetic male with a history of recent recurrent MRSA bacteremias, chronic osteomyelitis of the right foot, now admitted with altered mental status. Patient febrile, hypotensive in the emergency room, with leukocytosis and lactic acidosis. 1. Sepsis, unclear source. 2. Toxic metabolic encephalopathy. 3. Lactic acidosis. 4. Fever/leukocytosis. 5. Azotemia. Await culture results. Empiric antibiotic coverage with Zosyn and vancomycin adjusted for azotemia. IV fluid hydration. Will follow. Thank you for the kind referral. GLADIS YOUSSEF M.D. [id number]
[2017-05-11] MEDS: FLUTICASONE/SALMETEROL 100 MCG/50 MCG DISKUS IH SCH ×2 (10:00→21:48)
[2017-05-11 10:08] LABS: URINE LEUK ESTERASE Negative (NEGATIVE)
[2017-05-11] MEDS: SODIUM CHLORIDE 1,000 ML IV SCH (10:20)
[2017-05-11] MEDS: PANTOPRAZOLE 40 MG TABLET (FP) PO SCH (10:42)
[2017-05-11] MEDS: ALLOPURINOL 100 MG TABLET (FP) PO SCH (10:42)
[2017-05-11] MEDS: CLOPIDOGREL BISULFATE 75 MG TABLET (FP) PO SCH (10:42)
[2017-05-11] MEDS: GABAPENTIN 300 MG CAPSULE (FP) PO SCH ×2 (10:42→21:47)
[2017-05-11] MEDS: PIPERACILLIN/TAZOB 2.25 GM 2.25 GM in DEXTROSE 5%-WATER - 50 ML IVPB SCH ×2 (10:43→17:08)
--- NOTE | 2017-05-11 10:47 | EKG ---
Test Reason : Blood Pressure : / mmHG Vent. Rate : 081 BPM Atrial Rate : 081 BPM P-R Int : 200 ms QRS Dur : 070 ms QT Int : 362 ms P-R-T Axes : 035 114 063 degrees QTc Int : 420 ms NORMAL SINUS RHYTHM LEFT POSTERIOR FASCICULAR BLOCK ABNORMAL ECG WHEN COMPARED WITH ECG OF 25-FEB-2017 17:14, T WAVE INVERSION NO LONGER EVIDENT IN ANTERIOR LEADS Confirmed by ABBY BANEGAS, RODERICK ([id number]) on 05/11/2017 10:47:07 AM Referred By: Confirmed By:RODERICK MORA MD
[2017-05-11 11:13] LABS: MCH 20.8 pg (25.7-33.7); MCHC 29.5 g/dl (32.0-35.9); MEAN CELL VOLUME 70.5 fl (80-96); MEAN PLT VOLUME 9.1 fl (7.5-11.1); PLATELET COUNT 100 K/MM3 (134-434); RDW 20.4 % (11.9-15.9); WHITE BLOOD COUNT 27.9 K/mm3 (4.0-10.0)
[2017-05-11 11:21] LABS: CPK 1331 IU/L (39-308)
[2017-05-11 11:23] LABS: CHOLESTEROL 121 mg/dL (50-200)
[2017-05-11] MEDS ORDERED: MAGNESIUM SULF 50% (8.12 MEQ/2 ML-1 GM VIAL) IVPB ONE (11:30)
[2017-05-11] MEDS ORDERED: MAGNESIUM SULF 50% (8.12 MEQ/2 ML-1 GM VIAL) ONE (12:22)
[2017-05-11] MEDS ORDERED: VANCOMYCIN 1,000 MG in DEXTROSE 5%-WATER - 250 ML IVPB ONE (13:00)
--- NOTE | 2017-05-11 15:02 | PN ---
Physical Exam: SUBJECTIVE: Patient seen and examined ion the ER, he is awaiting bed placement Denies any chest pain or shortness of breath. OBJECTIVE: Vital Signs Period Temp Pulse Resp BP Sys/Cintron Pulse Ox Last 24 Hr 97.8 F-98.2 F 63-73 18-19 106-110/51-71 99-100 GENERAL: The patient is awake, alert, and fully oriented, in no acute distress. HEAD: Normal with no signs of trauma. EYES: PERRL, extraocular movements intact, sclera anicteric, conjunctiva clear. No ptosis. ENT: Ears normal, nares patent, oropharynx clear without exudates, moist mucous membranes. NECK: Trachea midline, full range of motion, supple. LUNGS: Breath sounds equal, diminished breath sounds bilaterally HEART: Regular rate and rhythm, S1, S2 without murmur, rub or gallop. ABDOMEN: Soft, nontender, nondistended, normoactive bowel sounds, no guarding EXTREMITIES: Bilateral lower ext non pitting edema, has closed wound on inner aspect of left foot, minimal drainage noted, left foot charcoat foot? NEUROLOGICAL: Normal speech, gait not observed. PSYCH: Normal mood, normal affect. Laboratory Results - last 24 hr 05/11/17 05/11/17 05/11/17 02:25 03:00 03:45 WBC Corrected WBC (auto) RBC Hgb Hct MCV MCH MCHC RDW Plt Count MPV Neutrophils % Lymphocytes % Monocytes % Eosinophils % Basophils % Platelet Estimate Platelet Comment RBC Morphology Puncture Site Left brachial ABG pH 7.34 L ABG pCO2 at Pt Temp 44.5 ABG pO2 at Pt Temp 81.2 ABG HCO3 23.2 ABG O2 Sat (Measured) 95.0 ABG O2 Content 12.6 L ABG Base Excess -2.0 Lee Test Positive Carboxyhemoglobin 1.9 Methemoglobin 0.7 O2 Delivery Device Nasal o2 Oxygen Flow Rate 3lpm PEEP 0.0 Sodium Potassium Chloride Carbon Dioxide Anion Gap BUN Creatinine Creat Clearance w eGFR Random Glucose Hemoglobin A1c % Lactic Acid 1.2 Calcium Phosphorus Magnesium Total Bilirubin AST ALT Alkaline Phosphatase Creatine Kinase Creatine Kinase Index CK-MB (CK-2) Total Protein Albumin Triglycerides Cholesterol Total LDL Cholesterol HDL Cholesterol Urine Color Yellow Urine Appearance Slcloudy Urine pH 5.0 Ur Specific [place] 1.010 Urine Protein Negative Urine Glucose (UA) Negative Urine Ketones Negative Urine Blood Negative Urine Nitrite Negative Urine Bilirubin Negative Urine Urobilinogen Negative Ur Leukocyte Esterase Negative 05/11/17 05/11/17 05/11/17 05:40 05:40 09:25 WBC Cancelled Corrected WBC (auto) Cancelled RBC Cancelled Hgb Cancelled Hct Cancelled MCV Cancelled MCH Cancelled MCHC Cancelled RDW Cancelled Plt Count Cancelled MPV Cancelled Neutrophils % Cancelled Lymphocytes % Cancelled Monocytes % Cancelled Eosinophils % Cancelled Basophils % Cancelled Platelet Estimate Cancelled Platelet Comment Cancelled RBC Morphology Cancelled Puncture Site ABG pH ABG pCO2 at Pt Temp ABG pO2 at Pt Temp ABG HCO3 ABG O2 Sat (Measured) ABG O2 Content ABG Base Excess Lee Test Carboxyhemoglobin Methemoglobin O2 Delivery Device Oxygen Flow Rate PEEP Sodium 137 Potassium 4.5 Chloride 104 Carbon Dioxide 25 Anion Gap 8 BUN 40 H Creatinine 2.4 H Creat Clearance w eGFR 27.22 Random Glucose 148 H Hemoglobin A1c % Lactic Acid Calcium 8.1 L Phosphorus 3.8 D Magnesium 1.7 L Total Bilirubin 0.6 AST 36 D ALT 21 Alkaline Phosphatase 123 H Creatine Kinase 1331 H 1547 H Creatine Kinase Index 0.5 0.6 CK-MB (CK-2) 7.901 H 9.618 H Total Protein 6.8 Albumin 3.0 L Triglycerides 107 Cholesterol 121 D Total LDL Cholesterol 45 D HDL Cholesterol 61 D Urine Color Urine Appearance Urine pH Ur Specific [place] Urine Protein Urine Glucose (UA) Urine Ketones Urine Blood Urine Nitrite Urine Bilirubin Urine Urobilinogen Ur Leukocyte Esterase 05/11/17 05/11/17 10:50 10:50 WBC 27.9 H Corrected WBC (auto) RBC 5.04 Hgb 10.5 L Hct 35.6 MCV 70.5 L MCH 20.8 L MCHC 29.5 L RDW 20.4 H Plt Count 100 L D MPV 9.1 Neutrophils % Lymphocytes % Monocytes % Eosinophils % Basophils % Platelet Estimate Platelet Comment RBC Morphology Puncture Site ABG pH ABG pCO2 at Pt Temp ABG pO2 at Pt Temp ABG HCO3 ABG O2 Sat (Measured) ABG O2 Content ABG Base Excess Lee Test Carboxyhemoglobin Methemoglobin O2 Delivery Device Oxygen Flow Rate PEEP Sodium Potassium Chloride Carbon Dioxide Anion Gap BUN Creatinine Creat Clearance w eGFR Random Glucose Hemoglobin A1c % 6.9 H D Lactic Acid Calcium Phosphorus Magnesium Total Bilirubin AST ALT Alkaline Phosphatase Creatine Kinase Creatine Kinase Index CK-MB (CK-2) Total Protein Albumin Triglycerides Cholesterol Total LDL Cholesterol HDL Cholesterol Urine Color Urine Appearance Urine pH Ur Specific [place] Urine Protein Urine Glucose (UA) Urine Ketones Urine Blood Urine Nitrite Urine Bilirubin Urine Urobilinogen Ur Leukocyte Esterase Active Medications Generic Name Dose Route Start Last Admin Trade Name Northq PRN Reason Stop Dose Admin Albuterol/Ipratropium 1 amp 05/11/17 04:15 Duoneb - NEB Q4H PRN SHORTNESS OF BREATH Allopurinol 200 mg 05/11/17 10:00 05/11/17 10:42 Zyloprim - PO 200 mg DAILY MISSAEL Administration Atorvastatin Calcium 20 mg 05/11/17 22:00 Lipitor - PO HS MISSAEL Clopidogrel Bisulfate 75 mg 05/11/17 10:00 05/11/17 10:42 Plavix - PO 75 mg DAILY MISSAEL Administration Docusate Sodium 300 mg 05/11/17 22:00 Colace - PO HS MISSAEL Gabapentin 300 mg 05/11/17 10:00 05/11/17 10:42 Neurontin - PO 300 mg BID MISSAEL Administration Heparin Sodium (Porcine) 5,000 unit 05/11/17 03:30 05/11/17 10:43 Heparin - SQ 5,000 unit Q8H-IV MISSAEL Administration Piperacillin Sod/Tazobactam 50 mls @ 100 mls/hr 05/11/17 10:00 05/11/17 10:43 Sod 2.25 gm/ Dextrose IVPB 100 mls/hr Q8H-IV MISSAEL Administration Protocol Sodium Chloride 1,000 mls @ 100 mls/hr 05/11/17 09:30 05/11/17 10:20 Normal Saline - IV 100 mls/hr ASDIR MISSAEL Administration Insulin Aspart 1 vial 05/11/17 07:00 05/11/17 13:25 Novolog Vial Sliding Scale - SQ 6 units ACHS MISSAEL Administration Protocol Insulin Detemir 18 units 05/11/17 07:00 05/11/17 07:55 Levemir Vial SQ 18 units BIDI MISSAEL Administration Pantoprazole Sodium 40 mg 05/11/17 10:00 05/11/17 10:42 Protonix - PO 40 mg DAILY MISSAEL Administration Pramipexole Dihydrochloride 0.125 mg 05/11/17 22:00 Mirapex - PO HS MISSAEL Fluticasone/Salmeterol 1 puff 05/11/17 10:00 05/11/17 10:00 Advair 100mcg/50mcg - IH Not Given BID MISSAEL Sodium Chloride 250 ml 05/10/17 21:34 05/11/17 01:45 Normal Saline - IV 250 ml Q20M PRN Administration MAP<65mm Hg OR SBP <90 Trazodone HCl 50 mg 05/11/17 04:22 Desyrel - PO HS PRN INSOMNIA ASSESSMENT/PLAN: Patient is a 66 year old male with a significant past medical history of COPD ( home oxygen dependent on 3 liters), asthma, diabetes mellitus, CAD, CVA with residual, hypertension, hyperlipidemia, gout, renal insufficiency and osteomyelitis. He presented to the ED for AMS and lethargy. Family called EMS when they noted patient's home to be in disarray and patient's mental status to be altered. On exam in the ER, patient was sitting up in the bed, in no acute distress, appears to be back to his baseline. Imaging: Chest xray 05/10/2017: mild bilateral perihilar lung markings, no acute lung disease ID: Severe sepsis, unclear etiology A/P: WBC 24>27 on admission, febrile, hypotensive, AMS, lactic acid 2.3 Lactic acid now wnl, bp stabilizing with IVF, monitor vitals, fever curve Vanco and zosyn as per ID, renally dosed Blood and urine cultures pending Monitor labs, vitals Vascular: Diabetic foot ulcer/chronic osteo with hx of MRSA A/P: unclear if this may be source of infection s/p osteo with IV antibiotic treatment of left foot Has minimal drainage of this left leg wound Will consult vascular Neuro: Metabolic encephalopathy, likely secondary to sepsis A/P: AMS now resolved, he is alert and oriented x 3 Continue IVF, monitor mental status Head CT ordered to rule out any neurological deficits as pt has history of CVA Pulmonary: Asthma/COPD/home oxygen dependent A/P: On 2-3 of nasal cannula duonebs, Advair Renal: JESÚS, creat of 2.3 A/P: Likely secondary to sepsis Monitor JESÚS, renal dose medications On IVF, monitor renal function Hold diuretics Endocrine: Diabetes Mellitus A/P: On Levemir and Novolog Hematology: Anemia Iron studies pending Cardiology: Hypertension A/P: Hypertensives on hold secondary to sepsis Monitor BP in the setting of sepsis F.E.N. Fluids: NS @100cc/hr Electrolytes: monitor Nutrition: diabetic diet Prophylaxis: DVT: Heparin GI: Protonix Disposition: full code Visit type - Emergency Visit Emergency Visit: Yes ED Registration Date: 05/11/17 Care time: The patient presented to the Emergency Department on the above date and was hospitalized for further evaluation of their emergent condition. - New Patient This patient is new to me today: Yes Date on this admission: 05/11/17 - Critical Care Critical Care patient: No - Discharge Referral Referred to [facility] Med P.C[facility] No
[2017-05-11 16:40] VITALS: BMI 27.1
[2017-05-11] MEDS ORDERED: INSULIN DETEMIR 100 UNITS/ML MDV SQ ONE ×2 (18:12→18:25)
[2017-05-11] MEDS ORDERED: INSULIN (NOVOLOG) ASPART 100 UNITS/ML 10ML VIAL ONE (18:25)
[2017-05-11] MEDS: ATORVASTATIN CA 20 MG TABLET (FP) PO SCH (21:47)
[2017-05-11] MEDS: DOCUSATE SODIUM 100 MG CAPSULE (FP) PO SCH (21:47)
[2017-05-11] MEDS ORDERED: PT OWN MED DRAWER 7, Y5N ONE (22:18)
[2017-05-11] MEDS: PRAMIPEXOLE DIHYDROCHLORIDE 0.125 MG TABLET PO SCH (23:08)
[2017-05-12] MEDS: oxyCODONE HCL 5 MG TABLET PO PRN ×3 (00:06→22:54)
[2017-05-12] MEDS ORDERED: DEXTROSE 5%-WATER - 50 ML IVPB ONE (01:18)
[2017-05-12] MEDS ORDERED: PIPERACILLIN/TAZOBACTAM 2.25 GM VIAL IVPB ONE (01:18)
[2017-05-12] MEDS: PIPERACILLIN/TAZOB 2.25 GM 2.25 GM in DEXTROSE 5%-WATER - 50 ML IVPB SCH ×2 (01:24→10:36)
[2017-05-12] MEDS: HEPARIN NA (PORCINE) 5,000 UNITS/ML 1ML VIAL SQ SCH ×3 (01:25→18:01)
[2017-05-12 06:07] LABS: SERUM IRON 13 ug/dL (38-169); TOTAL IRON BINDING CAPACITY 313 ug/dL (250-450); UIBC 300 ug/dL (111-343)
[2017-05-12] MEDS: INSULIN SLIDING SCALE (NOVOLOG) 1 VIAL SQ SCH ×4 (07:02→22:05)
[2017-05-12] MEDS: INSULIN DETEMIR 100 UNITS/ML MDV SQ SCH ×3 (07:07→17:31)
[2017-05-12 07:42] LABS: BASOPHIL 0.5 % (0-2.0); EOSINOPHIL 0.9 % (0-4.5); MCH 20.9 pg (25.7-33.7); MEAN CELL VOLUME 69.7 fl (80-96); MEAN PLT VOLUME 9.1 fl (7.5-11.1); NEUTROPHILS 86.5 % (42.8-82.8); PLATELET COUNT 78 K/MM3 (134-434); RDW 20.4 % (11.9-15.9); WHITE BLOOD COUNT 19.1 K/mm3 (4.0-10.0)
[2017-05-12 08:13] LABS: ALBUMIN 2.6 g/dl (3.4-5.0); ALK PHOS 110 U/L (45-117); ANION GAP 9 (8-16); BILIRUBIN,TOTAL 0.5 mg/dL (0.2-1.0); CALCIUM 8.1 mg/dL (8.5-10.1); CO2 24 mmol/L (21-32); CREATININE 1.8 mg/dL (0.7-1.3); GLUCOSE,RANDOM 81 mg/dL (74-106); SGOT/AST 37 U/L (15-37); SGPT/ALT 21 U/L (12-78); TOT PROT 6.2 g/dl (6.4-8.2)
[2017-05-12] MEDS ORDERED: ACETAMINOPHEN 325 MG TABLET (FP) PO ONE (08:30)
--- NOTE | 2017-05-12 09:18 | PN ---
Physical Exam: INFECTIOUS DISEASE SUBJECTIVE: Patient seen and examined this AM. Tmax 102.5 this AM. No subjective chills, no CP, SOB, headaches, nausea, vomiting, diarrhea, abd pain, cough. OBJECTIVE: Vital Signs Period Temp Pulse Resp BP Sys/Cintron Pulse Ox Last 24 Hr 97.8 F-102.5 F 69-89 18-20 107-135/51-74 100-100 GEN: AAOx3, NAD, Lying comfortably. Not confused HEENT: PERRLA, EOMi CV: S1, S2, RRR LUNG: CTABL ABD: Distended, NT, hypoactive BS MSK: L foot: Appx 5cm area of fluctulence in L lateral dorsal foot, with small slightly healed over opening Active Medications Generic Name Dose Route Start Last Admin Trade Name Freq PRN Reason Stop Dose Admin Albuterol/Ipratropium 1 amp 05/11/17 04:15 Duoneb - NEB Q4H PRN SHORTNESS OF BREATH Allopurinol 200 mg 05/11/17 10:00 05/11/17 10:42 Zyloprim - PO 200 mg DAILY MISSAEL Administration Atorvastatin Calcium 20 mg 05/11/17 22:00 05/11/17 21:47 Lipitor - PO 20 mg HS MISSAEL Administration Clopidogrel Bisulfate 75 mg 05/11/17 10:00 05/11/17 10:42 Plavix - PO 75 mg DAILY MISSAEL Administration Docusate Sodium 300 mg 05/11/17 22:00 05/11/17 21:47 Colace - PO 300 mg HS MISSAEL Administration Gabapentin 300 mg 05/11/17 10:00 05/11/17 21:47 Neurontin - PO 300 mg BID MISSAEL Administration Heparin Sodium (Porcine) 5,000 unit 05/11/17 03:30 05/12/17 01:25 Heparin - SQ 5,000 unit Q8H-IV MISSAEL Administration Piperacillin Sod/Tazobactam 50 mls @ 100 mls/hr 05/11/17 10:00 05/12/17 01:24 Sod 2.25 gm/ Dextrose IVPB 100 mls/hr Q8H-IV MISSAEL Administration Protocol Sodium Chloride 1,000 mls @ 100 mls/hr 05/11/17 09:30 05/11/17 10:20 Normal Saline - IV 100 mls/hr ASDIR MISSAEL Administration Insulin Aspart 1 vial 05/11/17 07:00 05/12/17 07:02 Novolog Vial Sliding Scale - SQ Not Given ACHS MISSAEL Protocol Insulin Detemir 18 units 05/11/17 07:00 05/12/17 07:40 Levemir Vial SQ 18 units BIDI MISSAEL Administration Oxycodone HCl 5 mg 05/11/17 23:53 05/12/17 00:06 Roxicodone - PO 05/12/17 23:52 5 mg Q4H PRN Administration PAIN Pantoprazole Sodium 40 mg 05/11/17 10:00 05/11/17 10:42 Protonix - PO 40 mg DAILY MISSAEL Administration Pramipexole Dihydrochloride 0.125 mg 05/11/17 22:00 05/11/17 23:08 Mirapex - PO 0.125 mg HS MISSAEL Administration Fluticasone/Salmeterol 1 puff 05/11/17 10:00 05/11/17 21:48 Advair 100mcg/50mcg - IH 1 puff BID MISSAEL Administration Sodium Chloride 250 ml 05/10/17 21:34 05/11/17 01:45 Normal Saline - IV 250 ml Q20M PRN Administration MAP<65mm Hg OR SBP <90 Trazodone HCl 50 mg 05/11/17 04:22 Desyrel - PO HS PRN INSOMNIA ASSESSMENT/PLAN: Pt is a 66yo with PMHx of DM2 and recent history of recurrent MRSA bacteremia and chronic osteomyelitis of R foot (treated in Mar/Apr with 6 weeks of IV abx) , who was admitted with AMS, found to have likely MRSA bacteremia # MRSA Bacteremia - secondary to chronic osteo vs new L foot wound ?abscess - F/u blood cultures, repeat - ESR, CRP to monitor osteo - D/c Zosyn, Stat vanco level, redose accordingly - Echocardiogram - X/R feet bilaterally - F/u vascular consult Discussed w/ Dr Benitez. Will follow Keith Barboza MD - PGY1 Infectious Disease Visit type - Emergency Visit Emergency Visit: No - New Patient This patient is new to me today: Yes Date on this admission: 05/12/17 - Critical Care Critical Care patient: No - Discharge Referral Referred to [facility] Med P.C.: No
--- NOTE | 2017-05-12 09:49 | PN ---
Progress Note (short form) - Note Progress Note: Subjective: The patient was seen and examined at the bedside, he has no complaints at this time. Current Medications Generic Name Dose Route Start Last Admin Trade Name Freq PRN Reason Stop Dose Admin Albuterol/Ipratropium 1 amp 05/11/17 04:15 Duoneb - NEB Q4H PRN SHORTNESS OF BREATH Allopurinol 200 mg 05/11/17 10:00 05/11/17 10:42 Zyloprim - PO 200 mg DAILY MISSAEL Administration Atorvastatin Calcium 20 mg 05/11/17 22:00 05/11/17 21:47 Lipitor - PO 20 mg HS MISSAEL Administration Clopidogrel Bisulfate 75 mg 05/11/17 10:00 05/11/17 10:42 Plavix - PO 75 mg DAILY MISSAEL Administration Docusate Sodium 300 mg 05/11/17 22:00 05/11/17 21:47 Colace - PO 300 mg HS MISSAEL Administration Gabapentin 300 mg 05/11/17 10:00 05/11/17 21:47 Neurontin - PO 300 mg BID MISSAEL Administration Heparin Sodium (Porcine) 5,000 unit 05/11/17 03:30 05/12/17 01:25 Heparin - SQ 5,000 unit Q8H-IV MISSAEL Administration Piperacillin Sod/Tazobactam 50 mls @ 100 mls/hr 05/11/17 10:00 05/12/17 01:24 Sod 2.25 gm/ Dextrose IVPB 100 mls/hr Q8H-IV MISSAEL Administration Protocol Sodium Chloride 1,000 mls @ 100 mls/hr 05/11/17 09:30 05/11/17 10:20 Normal Saline - IV 100 mls/hr ASDIR MISSAEL Administration Insulin Aspart 1 vial 05/11/17 07:00 05/12/17 07:02 Novolog Vial Sliding Scale - SQ Not Given ACHS MISSAEL Protocol Insulin Detemir 18 units 05/11/17 07:00 05/12/17 07:40 Levemir Vial SQ 18 units BIDI MISSAEL Administration Oxycodone HCl 5 mg 05/11/17 23:53 05/12/17 00:06 Roxicodone - PO 05/12/17 23:52 5 mg Q4H PRN Administration PAIN Pantoprazole Sodium 40 mg 05/11/17 10:00 05/11/17 10:42 Protonix - PO 40 mg DAILY MISSAEL Administration Pramipexole Dihydrochloride 0.125 mg 05/11/17 22:00 05/11/17 23:08 Mirapex - PO 0.125 mg HS MISSAEL Administration Fluticasone/Salmeterol 1 puff 05/11/17 10:00 05/11/17 21:48 Advair 100mcg/50mcg - IH 1 puff BID MISSAEL Administration Sodium Chloride 250 ml 05/10/17 21:34 05/11/17 01:45 Normal Saline - IV 250 ml Q20M PRN Administration MAP<65mm Hg OR SBP <90 Trazodone HCl 50 mg 05/11/17 04:22 Desyrel - PO HS PRN INSOMNIA Objective: Vital Signs Period Temp Pulse Resp BP Sys/Cintron Pulse Ox Last 24 Hr 97.8 F-102.5 F 69-89 18-20 109-135/54-74 100-100 Physical Exam: General: NAD, A&Ox3 Patient was eating and refused exam CBCD WBC 19.1 K/mm3 (4.0-10.0) H D 05/12/17 06:25 RBC 4.55 M/mm3 (4.00-5.60) 05/12/17 06:25 Hgb 9.5 GM/dL (11.7-16.9) L 05/12/17 06:25 Hct 31.7 % (35.4-49) L 05/12/17 06:25 MCV 69.7 fl (80-96) L 05/12/17 06:25 MCHC 30.0 g/dl (32.0-35.9) L 05/12/17 06:25 RDW 20.4 % (11.9-15.9) H 05/12/17 06:25 Plt Count 78 K/MM3 (134-434) L D 05/12/17 06:25 MPV 9.1 fl (7.5-11.1) 05/12/17 06:25 CMP Sodium 138 mmol/L (136-145) 05/12/17 06:25 Potassium 4.2 mmol/L (3.5-5.1) 05/12/17 06:25 Chloride 105 mmol/L (98-107) 05/12/17 06:25 Carbon Dioxide 24 mmol/L (21-32) 05/12/17 06:25 Anion Gap 9 (8-16) 05/12/17 06:25 BUN 33 mg/dL (7-18) H 05/12/17 06:25 Creatinine 1.8 mg/dL (0.7-1.3) H D 05/12/17 06:25 Creat Clearance w eGFR 37.94 (>60) 05/12/17 06:25 Random Glucose 81 mg/dL (74-106) D 05/12/17 06:25 Calcium 8.1 mg/dL (8.5-10.1) L 05/12/17 06:25 Total Bilirubin 0.5 mg/dL (0.2-1.0) 05/12/17 06:25 AST 37 U/L (15-37) 05/12/17 06:25 ALT 21 U/L (12-78) 05/12/17 06:25 Alkaline Phosphatase 110 U/L (45-117) 05/12/17 06:25 Total Protein 6.2 g/dl (6.4-8.2) L 05/12/17 06:25 Albumin 2.6 g/dl (3.4-5.0) L 05/12/17 06:25 CARDIAC ENZYMES Creatine Kinase 1381 IU/L (39-308) H 05/11/17 17:30 Troponin I 0.02 ng/ml (0.00-0.05) 05/10/17 22:26 Microbiology 05/11/17 02:53 Urine - Urine Clean Catch Urine Culture - Final NO GROWTH OBTAINED 05/10/17 22:20 Blood - Peripheral Venous Blood Culture - Preliminary Presumptive Mrsa (Pbp2a Pos) 05/10/17 22:20 Blood - Peripheral Venous Blood Culture - Preliminary Pending Organism 05/11/17 03:00 Nasopharyngeal Swab Influenza Types A,B Antigen (KATHRYN) - Final 05/11/17 03:00 Nasopharyngeal Swab - Final Assessment: This is a 66 year old male with PMHx of COPD (on 3L O2 at home), asthma, DM, CAD, CVA, HTN, hyperlipidemia, gout, renal insufficiency, chronic lower extremity wounds, osteomyelitis who presented to the ED with AMS and lethargy. Plan: 1) Neuro: Acute metabolic encephalopathy 2/2 bacteremia - Mental status back to baseline: A&Ox3 2) ID: Severe sepsis 2/2 presumptive MRSA bactermia - Tmax 102.5 this AM - Repeat cultures sent - WBC trending down - F/u ECHO to r/o vegetation - F/u ESR, CRP - Zosyn discontinued - Vancomycin given yesterday, dose per ID - Appreciate ID consult 3) Vascular: Chronic diabetic foot ulcer, chronic osteo - Hx of MRSA - Wound dressing - F/u vascular consult 4) Pulmonary: Asthma, COPD - No acute exacerbation at this time - Continue O2 via NC as needed - Continue Duonebs - Continue Advair 5) Renal: CKD - Cr at baseline - Continue to trend 6) Endocrine: DM - BGM ACHS - ISS ACHS 7) Cardiology: HTN - Hypotension yesterday. Hold home medications for now given severe sepsis 8) MSK: Rhabdo - CK trending down - Encourage po intake - Continue IV fluids 9) F/E/N: - Monitor electrolytes - Diabetic, low sodium diet 10) Prophylaxis: - Heparin 5,000u sq q8h 11) Dispo: - Requires continued inpatient care CODE STATUS: FULL CODE Visit type - Emergency Visit Emergency Visit: Yes ED Registration Date: 05/11/17 Care time: The patient presented to the Emergency Department on the above date and was hospitalized for further evaluation of their emergent condition. - New Patient This patient is new to me today: Yes Date on this admission: 05/12/17 - Critical Care Critical Care patient: No
--- NOTE | 2017-05-12 09:57 | PN ---
Progress Note, Physician Chief Complaint: ID Patient mentally oriented and in No distress Blood culture MRSA ! AGAIN - Current Medication List Current Medications: Active Medications Albuterol/Ipratropium (Duoneb -) 1 amp NEB Q4H PRN PRN Reason: SHORTNESS OF BREATH Allopurinol (Zyloprim -) 200 mg PO DAILY [facility] Last Admin: 05/11/17 10:42 Dose: 200 mg Atorvastatin Calcium (Lipitor -) 20 mg PO HS [facility] Last Admin: 05/11/17 21:47 Dose: 20 mg Clopidogrel Bisulfate (Plavix -) 75 mg PO DAILY [facility] Last Admin: 05/11/17 10:42 Dose: 75 mg Docusate Sodium (Colace -) 300 mg PO HS [facility] Last Admin: 05/11/17 21:47 Dose: 300 mg Gabapentin (Neurontin -) 300 mg PO BID [facility] Last Admin: 05/11/17 21:47 Dose: 300 mg Heparin Sodium (Porcine) (Heparin -) 5,000 unit SQ Q8H-IV [facility] Last Admin: 05/12/17 01:25 Dose: 5,000 unit Piperacillin Sod/Tazobactam (Sod 2.25 gm/ Dextrose) 50 mls @ 100 mls/hr IVPB Q8H-IV MISSAEL PRN Reason: Protocol Last Admin: 05/12/17 01:24 Dose: 100 mls/hr Sodium Chloride (Normal Saline -) 1,000 mls @ 100 mls/hr IV ASDIR [facility] Last Admin: 05/11/17 10:20 Dose: 100 mls/hr Insulin Aspart (Novolog Vial Sliding Scale -) 1 vial SQ ACHS [facility] PRN Reason: Protocol Last Admin: 05/12/17 07:02 Dose: Not Given Insulin Detemir (Levemir Vial) 18 units SQ BIDI [facility] Last Admin: 05/12/17 07:40 Dose: 18 units Oxycodone HCl (Roxicodone -) 5 mg PO Q4H PRN PRN Reason: PAIN Stop: 05/12/17 23:52 Last Admin: 05/12/17 00:06 Dose: 5 mg Pantoprazole Sodium (Protonix -) 40 mg PO DAILY [facility] Last Admin: 05/11/17 10:42 Dose: 40 mg Pramipexole Dihydrochloride (Mirapex -) 0.125 mg PO HS [facility] Last Admin: 05/11/17 23:08 Dose: 0.125 mg Fluticasone/Salmeterol (Advair 100mcg/50mcg -) 1 puff IH BID MISSAEL Last Admin: 05/11/17 21:48 Dose: 1 puff Sodium Chloride (Normal Saline -) 250 ml IV Q20M PRN PRN Reason: MAP<65mm Hg OR SBP <90 Last Admin: 05/11/17 01:45 Dose: 250 ml Trazodone HCl (Desyrel -) 50 mg PO HS PRN PRN Reason: INSOMNIA - Objective Vital Signs: Vital Signs Temperature 102.5 F H 05/12/17 06:59 Pulse Rate 89 05/12/17 06:59 Respiratory Rate 20 05/12/17 06:59 Blood Pressure 135/74 05/12/17 06:59 O2 Sat by Pulse Oximetry (%) 100 05/11/17 21:00 Constitutional: Yes: Well Nourished, No Distress Eyes: Yes: WNL, Conjunctiva Clear HENT: Yes: WNL, Atraumatic Neck: Yes: WNL, Supple Cardiovascular: Yes: Regular Rate and Rhythm, S1, S2. No: Murmur Respiratory: Yes: WNL, Regular, CTA Bilaterally Gastrointestinal: Yes: WNL, Normal Bowel Sounds. No: Tenderness, Tenderness, Rebound Extremities: Yes: Other (Right foot heeled incision plantar no drainage redness tenderness LEft lateral plantar foot swollen ? fluctuant very tender) Labs: CBC, BMP 05/12/17 06:25 05/12/17 06:25 INR, PTT INR 1.12 (0.82-1.09) 05/10/17 22:26 Assessment/Plan Microbiology 05/10/17 22:20 Blood - Peripheral Venous Blood Culture - Preliminary Presumptive Mrsa (Pbp2a Pos) 05/10/17 22:20 Blood - Peripheral Venous Blood Culture - Preliminary Pending Organism Laboratory Tests 05/10/17 05/11/17 05/11/17 22:26 03:00 10:50 WBC 24.8 H D 27.9 H Hgb Hct Plt Count ABG pH 7.34 L ABG pCO2 at Pt Temp 44.5 ABG pO2 at Pt Temp 81.2 BUN Creatinine Creat Clearance w eGFR Total Bilirubin 05/12/17 05/12/17 06:25 06:25 WBC 19.1 H D Hgb 9.5 L Hct 31.7 L Plt Count 78 L D ABG pH ABG pCO2 at Pt Temp ABG pO2 at Pt Temp BUN 33 H Creatinine 1.8 H D Creat Clearance w eGFR 37.94 Total Bilirubin 0.5 Assessment Recurrent vs new episode of MRSA bacateremia 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 He is a patient of Dr Sanders. I also suspect he has chronic osteomyelits of the right foot. Plan Repeat blood cultures ESR CRP ECHO Check vanco level now stat and redose accordingly Stop Zosyn Xray of the foot Dr Sanders consult for left foot abscess ?? Emmanuel BANEGAS
[2017-05-12] MEDS ORDERED: PT OWN MED DRAWER 7, Y5N ONE ×2 (10:27→10:47)
[2017-05-12] MEDS: SODIUM CHLORIDE 1,000 ML IV SCH ×2 (10:33→12:49)
[2017-05-12] MEDS: ALLOPURINOL 100 MG TABLET (FP) PO SCH (10:35)
[2017-05-12] MEDS: FLUTICASONE/SALMETEROL 100 MCG/50 MCG DISKUS IH SCH ×2 (10:35→22:02)
[2017-05-12] MEDS: PANTOPRAZOLE 40 MG TABLET (FP) PO SCH (10:35)
[2017-05-12] MEDS: CLOPIDOGREL BISULFATE 75 MG TABLET (FP) PO SCH (10:35)
[2017-05-12] MEDS: GABAPENTIN 300 MG CAPSULE (FP) PO SCH ×2 (10:35→22:01)
[2017-05-12] MEDS ORDERED: INSULIN (NOVOLOG) ASPART 100 UNITS/ML 10ML VIAL ONE (12:39)
[2017-05-12] MEDS ORDERED: INSULIN DETEMIR 100 UNITS/ML MDV SQ ONE (12:40)
[2017-05-12 14:50] LABS: URINE APPEARANCE CLEAR; URINE BILIRUBIN NEGATIVE (NEGATIVE); URINE BLOOD 1+ (NEGATIVE); URINE COLOR LTYELLOW; URINE GLUCOSE (UA) NEGATIVE (NEGATIVE); URINE KETONE NEGATIVE (NEGATIVE); URINE NITRITE NEGATIVE (NEGATIVE); URINE PROTEIN NEGATIVE (NEGATIVE); URINE UROBILINOGEN NEGATIVE mg/dL (0.2-1.0)
[2017-05-12 14:55] LABS: URINE MUCUS RARE; URINE RBC <1 /hpf (0-3); URINE WBC 3 /hpf (3-5)
[2017-05-12 17:10] LABS: URINE LEUK ESTERASE TRACE (NEGATIVE)
--- NOTE | 2017-05-12 18:19 | PN ---
Progress Note (short form) - Note Progress Note: Pt is a 66M w/ PMH HTN, DM, chronic wound infection with a history of osteomyelitits. Brought to the ED after being found by his daughter sleeping on the hallway floor of his house. Upon admission he was found to have a fever to 101. The patient states that he had some bloody drainage from his left foot and is a little tender. He denies any cough, painful urination Vital Signs Period Temp Pulse Resp BP Sys/Cintron Pulse Ox Last 24 Hr 98.2 F-102.5 F 74-92 18-20 125-147/61-78 96-100 GEN: Appears comfortable Left foot: 5x5 cm callous to the medial plantar surface, No erythema or spontaneous drainage noted. this area wasn't tender to the touch. He has swelling to his medial ankle and forefoot, no bogginess or skin breakdown noted. He is tender in this area. After choloraprep applied to this area a needle was introduced to determine if there was any underlying purulent material. None was aspirated. Right foot: swelling to plantar surface in med foot. No drainage, erythema or tenderness. CBC, BMP 05/12/17 06:25 05/12/17 06:25 Microbiology 05/11/17 02:53 Urine Culture - Final Urine - Urine Clean Catch NO GROWTH OBTAINED 05/10/17 22:20 Blood Culture - Preliminary Blood - Peripheral Venous Presumptive Mrsa (Pbp2a Pos) 05/10/17 22:20 Blood Culture - Preliminary Blood - Peripheral Venous Pending Organism CXR: no Acute infiltrate or effusions Xray of b/l foot: no sq emphysema A/P: 66 yo male with h/o osteo, chronic wound infections with swelling no erythema/drainage Continue IV abx At this time, no obvious drainable collection on exam. He remains febrile and may need surgical debridment if fevers do not improve Dr. Sanders to evaluate the patient and determine need for surgical debridment <Jennie Garrido - Last Filed: 05/12/17 18:41> - Note Progress Note: Events noted. I have been following Jacob for months for wounds with osteomyelitis in both feet. He has healed and recurred several time in each foot. He now has pain and fever and most likely has recurrent infection in one or both feet. I will review studies and plan bedside debridements. <Jay Sanders - Last Filed: 05/12/17 19:44>
[2017-05-12] MEDS: DOCUSATE SODIUM 100 MG CAPSULE (FP) PO SCH (22:01)
[2017-05-12] MEDS: ATORVASTATIN CA 20 MG TABLET (FP) PO SCH (22:01)
[2017-05-12] MEDS: PRAMIPEXOLE DIHYDROCHLORIDE 0.125 MG TABLET PO SCH (22:02)
[2017-05-13] MEDS: HEPARIN NA (PORCINE) 5,000 UNITS/ML 1ML VIAL SQ SCH ×3 (02:37→18:11)
[2017-05-13] MEDS: SODIUM CHLORIDE 1,000 ML IV SCH ×3 (02:49→14:05)
[2017-05-13] MEDS: INSULIN DETEMIR 100 UNITS/ML MDV SQ SCH ×2 (06:04→18:10)
[2017-05-13] MEDS: INSULIN SLIDING SCALE (NOVOLOG) 1 VIAL SQ SCH ×4 (06:04→21:41)
[2017-05-13] MEDS ORDERED: LIDOCAINE HCL/PF 2% SDV 5ML VIAL SQ ONE (08:02)
[2017-05-13 08:10] LABS: MCH 21.1 pg (25.7-33.7); MCHC 30.2 g/dl (32.0-35.9); MEAN PLT VOLUME 9.7 fl (7.5-11.1); PLATELET COUNT 74 K/MM3 (134-434); RDW 20.1 % (11.9-15.9); WHITE BLOOD COUNT 13.9 K/mm3 (4.0-10.0)
[2017-05-13 08:45] LABS: ALBUMIN 2.5 g/dl (3.4-5.0); ANION GAP 10 (8-16); BILIRUBIN,TOTAL 0.4 mg/dL (0.2-1.0); CALCIUM 8.2 mg/dL (8.5-10.1); CO2 24 mmol/L (21-32); CREATININE 1.6 mg/dL (0.7-1.3); GLUCOSE,RANDOM 58 mg/dL (74-106); SGOT/AST 30 U/L (15-37); SGPT/ALT 19 U/L (12-78); TOT PROT 6.2 g/dl (6.4-8.2)
[2017-05-13 08:46] LABS: ALK PHOS 95 U/L (45-117); CPK 764 IU/L (39-308)
--- NOTE | 2017-05-13 08:46 | PN ---
Progress Note (short form) - Note Progress Note: Less pain Afebrile Both feet with less swelling Will continue antibiotics and reevaluate in 24 hours.
--- NOTE | 2017-05-13 08:54 | PN ---
Teaching Attending Note Name of Resident: Keith Barboza ATTENDING PHYSICIAN STATEMENT I saw and evaluated the patient. I reviewed the resident's note and discussed the case with the resident. I agree with the resident's findings and plan as documented. SUBJECTIVE:Vancomycin continues OBJECTIVE:Swelling is less in LE ASSESSMENT AND PLAN: Microbiology Laboratory Tests 05/12/17 05/12/17 05/13/17 06:25 10:30 06:30 WBC 13.9 H Hgb 8.8 L Hct 29.1 L Plt Count 74 L BUN 33 H Creatinine 1.8 H D Creat Clearance w eGFR 37.94 Random Vancomycin 22.032 Assessment Bilateral LE swelling improved suspect deeper abscesses/ osteomylitis Plan Redose 500mg IVP daily and check trough on 3rd dose May need surgery for I & D Discussed Dr Cora Benitez MD
--- NOTE | 2017-05-13 09:04 | PN ---
Physical Exam: INFECTIOUS DISEASE SUBJECTIVE: Patient seen and examined. States he felt feverish last night. Mild cough. No CP, no SOB. Surgery note reviewed, no drainable collection. Swelling improved OBJECTIVE: Vital Signs Period Temp Pulse Resp BP Sys/Cintron Pulse Ox Last 24 Hr 98.4 F-98.9 F 86-92 18-20 125-156/61-79 96-98 GEN: AAOx3, NAD, Lying comfortably. Not confused HEENT: PERRLA, EOMi CV: S1, S2, RRR LUNG: CTABL ABD: Distended, NT, hypoactive BS MSK: L foot: Appx 5cm area of fluctulence in L lateral dorsal foot, with small slightly healed over opening, improved swelling Home Medication List Medication Instructions Recorded Confirmed Type Allopurinol 300 mg PO DAILY 05/11/16 05/11/17 History Atorvastatin Ca [Lipitor] 20 mg PO DAILY 05/11/16 05/11/17 History Linagliptin [Tradjenta] 5 mg PO DAILY 05/11/16 05/11/17 History Nystatin Powder [Nystop Powder -] 60 gm TP DAILY 05/11/16 05/11/17 History Peg 400/Hypromellose/Glycerin 1 drop OU DAILY 05/11/16 05/11/17 History [Artificial Tears Drops] Tamsulosin HCl [Flomax -] 0.4 mg PO DAILY 05/11/16 05/11/17 History Trazodone HCl [Desyrel -] 50 mg PO HS 05/11/16 05/11/17 History Memantine HCl [Namenda Xr] 7 mg PO DAILY 07/22/16 05/11/17 History Ferrous Sulfate 325 mg PO BID 01/25/17 05/11/17 History Gabapentin 300 mg PO TID 01/25/17 05/11/17 History Oxybutynin Chloride [Ditropan Xl] 5 mg PO DAILY 01/25/17 05/11/17 History Pantoprazole Sodium [Protonix] 40 mg PO DAILY 01/25/17 05/11/17 History Pramipexole Dihydrochloride 0.5 mg PO HS 01/25/17 05/11/17 History [Mirapex -] Albuterol 2.5/Ipratropium 0.5 1 neb NEB Q4H PRN 05/11/17 05/11/17 History [Duoneb -] Ergocalciferol (Vitamin D2) 50,000 unit PO WEEKLY 05/11/17 05/11/17 History [Vitamin D2] Pregabalin [Lyrica -] 150 mg PO BID 05/11/17 05/11/17 History Active Medications Generic Name Dose Route Start Last Admin Trade Name Freq PRN Reason Stop Dose Admin Acetaminophen 650 mg 05/12/17 23:07 Tylenol - PO Q4H PRN FEVER OR PAIN Albuterol/Ipratropium 1 amp 05/11/17 04:15 Duoneb - NEB Q4H PRN SHORTNESS OF BREATH Allopurinol 200 mg 05/11/17 10:00 05/12/17 10:35 Zyloprim - PO 200 mg DAILY MISSAEL Administration Atorvastatin Calcium 20 mg 05/11/17 22:00 05/12/17 22:01 Lipitor - PO 20 mg HS MISSAEL Administration Clopidogrel Bisulfate 75 mg 05/11/17 10:00 05/12/17 10:35 Plavix - PO 75 mg DAILY MISSAEL Administration Docusate Sodium 300 mg 05/11/17 22:00 05/12/17 22:01 Colace - PO 300 mg HS MISSAEL Administration Gabapentin 300 mg 05/11/17 10:00 05/12/17 22:01 Neurontin - PO 300 mg BID MISSAEL Administration Heparin Sodium (Porcine) 5,000 unit 05/11/17 03:30 05/13/17 02:37 Heparin - SQ 5,000 unit Q8H-IV MISSAEL Administration Sodium Chloride 1,000 mls @ 100 mls/hr 05/11/17 09:30 05/13/17 02:49 Normal Saline - IV 100 mls/hr ASDIR MISSAEL Administration Insulin Aspart 1 vial 05/11/17 07:00 05/13/17 06:04 Novolog Vial Sliding Scale - SQ Not Given ACHS [facility] Protocol Insulin Detemir 18 units 05/11/17 07:00 05/13/17 06:04 Levemir Vial SQ Not Given BIDI MISSAEL Pantoprazole Sodium 40 mg 05/11/17 10:00 05/12/17 10:35 Protonix - PO 40 mg DAILY MISSAEL Administration Pramipexole Dihydrochloride 0.125 mg 05/11/17 22:00 05/12/17 22:02 Mirapex - PO 0.125 mg HS MISSAEL Administration Fluticasone/Salmeterol 1 puff 05/11/17 10:00 05/12/17 22:02 Advair 100mcg/50mcg - IH 1 puff BID MISSAEL Administration Sodium Chloride 250 ml 05/10/17 21:34 05/11/17 01:45 Normal Saline - IV 250 ml Q20M PRN Administration MAP<65mm Hg OR SBP <90 Trazodone HCl 50 mg 05/11/17 04:22 Desyrel - PO HS PRN INSOMNIA Microbiology 05/10/17 22:20 Blood - Peripheral Venous Blood Culture - Preliminary Presumptive Mrsa (Pbp2a Pos) 05/10/17 22:20 Blood - Peripheral Venous Blood Culture - Preliminary Presumptive Mrsa (Pbp2a Pos) Laboratory Tests 05/12/17 05/12/17 05/12/17 06:25 06:25 10:40 WBC 19.1 H D ESR 50 H Creatinine 1.8 H D Creat Clearance w eGFR C-Reactive Protein 18.0 H D 05/13/17 05/13/17 06:30 06:30 WBC 13.9 H ESR Creatinine 1.6 H Creat Clearance w eGFR 43.46 C-Reactive Protein ASSESSMENT/PLAN: Pt is a 66yo with PMHx of DM2 and recent history of recurrent MRSA bacteremia and chronic osteomyelitis of R foot (treated in Mar/Apr with 6 weeks of IV abx) , who was admitted with AMS, found to have likely MRSA bacteremia # MRSA Bacteremia - secondary to chronic osteo vs new L foot wound ?abscess - F/u blood cultures, repeat - ESR, CRP elevated - Day 2 of Vancomycin, trough after 3rd dose - Placed on standing Vancomycin 500mg QD - Echo shows no vegetation, normal EF - X/R feet bilaterally - F/u vascular consult Discussed w/ Dr Benitez. Will follow Keith Barboza MD - PGY1 Infectious Disease Visit type - Emergency Visit Emergency Visit: No - New Patient This patient is new to me today: No - Critical Care Critical Care patient: No - Discharge Referral Referred to [facility] No
--- NOTE | 2017-05-13 09:38 | PN ---
Progress Note (short form) - Note Progress Note: Subjective: The patient was seen and examined at the bedside, he has no complaints at this time. Current Medications Generic Name Dose Route Start Last Admin Trade Name Freq PRN Reason Stop Dose Admin Acetaminophen 650 mg 05/12/17 23:07 Tylenol - PO Q4H PRN FEVER OR PAIN Albuterol/Ipratropium 1 amp 05/11/17 04:15 Duoneb - NEB Q4H PRN SHORTNESS OF BREATH Allopurinol 200 mg 05/11/17 10:00 05/12/17 10:35 Zyloprim - PO 200 mg DAILY MISSAEL Administration Atorvastatin Calcium 20 mg 05/11/17 22:00 05/12/17 22:01 Lipitor - PO 20 mg HS MISSAEL Administration Clopidogrel Bisulfate 75 mg 05/11/17 10:00 05/12/17 10:35 Plavix - PO 75 mg DAILY MISSAEL Administration Docusate Sodium 300 mg 05/11/17 22:00 05/12/17 22:01 Colace - PO 300 mg HS MSISAEL Administration Gabapentin 300 mg 05/11/17 10:00 05/12/17 22:01 Neurontin - PO 300 mg BID MISSAEL Administration Heparin Sodium (Porcine) 5,000 unit 05/11/17 03:30 05/13/17 02:37 Heparin - SQ 5,000 unit Q8H-IV MISSAEL Administration Sodium Chloride 1,000 mls @ 100 mls/hr 05/11/17 09:30 05/13/17 02:49 Normal Saline - IV 100 mls/hr ASDIR MISSAEL Administration Vancomycin HCl 500 mg/ 100 mls @ 250 mls/hr 05/13/17 10:00 Dextrose IVPB DAILY MISSAEL Protocol Insulin Aspart 1 vial 05/11/17 07:00 05/13/17 06:04 Novolog Vial Sliding Scale - SQ Not Given ACHS [facility] Protocol Insulin Detemir 18 units 05/11/17 07:00 05/13/17 06:04 Levemir Vial SQ Not Given BIDI MISSAEL Pantoprazole Sodium 40 mg 05/11/17 10:00 05/12/17 10:35 Protonix - PO 40 mg DAILY MISSAEL Administration Pramipexole Dihydrochloride 0.125 mg 05/11/17 22:00 05/12/17 22:02 Mirapex - PO 0.125 mg HS MISSAEL Administration Fluticasone/Salmeterol 1 puff 05/11/17 10:00 05/12/17 22:02 Advair 100mcg/50mcg - IH 1 puff BID MISSAEL Administration Sodium Chloride 250 ml 05/10/17 21:34 05/11/17 01:45 Normal Saline - IV 250 ml Q20M PRN Administration MAP<65mm Hg OR SBP <90 Trazodone HCl 50 mg 05/11/17 04:22 Desyrel - PO HS PRN INSOMNIA Objective: Vital Signs Period Temp Pulse Resp BP Sys/Cintron Pulse Ox Last 24 Hr 98.4 F-98.9 F 86-92 18-20 125-156/61-79 96-96 Physical Exam: General: NAD, A&Ox3 Lungs: CTA bilaterally Heart: RRR, S1S2 Abd: Soft, non-tender, non-distended. Normoactive bowel sounds Ext: Left foot with callous on medial plantar surface, no drainage, erythema, tenderness. Left foot, second digit absent. Right foot with plantar surface swelling, no drainage, erythema, tenderness. CBCD WBC 13.9 K/mm3 (4.0-10.0) H 05/13/17 06:30 RBC 4.16 M/mm3 (4.00-5.60) 05/13/17 06:30 Hgb 8.8 GM/dL (11.7-16.9) L 05/13/17 06:30 Hct 29.1 % (35.4-49) L 05/13/17 06:30 MCV 70.0 fl (80-96) L 05/13/17 06:30 MCHC 30.2 g/dl (32.0-35.9) L 05/13/17 06:30 RDW 20.1 % (11.9-15.9) H 05/13/17 06:30 Plt Count 74 K/MM3 (134-434) L 05/13/17 06:30 MPV 9.7 fl (7.5-11.1) 05/13/17 06:30 CMP Sodium 140 mmol/L (136-145) 05/13/17 06:30 Potassium 4.2 mmol/L (3.5-5.1) 05/13/17 06:30 Chloride 106 mmol/L (98-107) 05/13/17 06:30 Carbon Dioxide 24 mmol/L (21-32) 05/13/17 06:30 Anion Gap 10 (8-16) 05/13/17 06:30 BUN 24 mg/dL (7-18) H D 05/13/17 06:30 Creatinine 1.6 mg/dL (0.7-1.3) H 05/13/17 06:30 Creat Clearance w eGFR 43.46 (>60) 05/13/17 06:30 Random Glucose 58 mg/dL (74-106) L D 05/13/17 06:30 Calcium 8.2 mg/dL (8.5-10.1) L 05/13/17 06:30 Total Bilirubin 0.4 mg/dL (0.2-1.0) 05/13/17 06:30 AST 30 U/L (15-37) 05/13/17 06:30 ALT 19 U/L (12-78) 05/13/17 06:30 Alkaline Phosphatase 95 U/L (45-117) 05/13/17 06:30 Total Protein 6.2 g/dl (6.4-8.2) L 05/13/17 06:30 Albumin 2.5 g/dl (3.4-5.0) L 05/13/17 06:30 CARDIAC ENZYMES Creatine Kinase 764 IU/L (39-308) H 05/13/17 06:30 Troponin I 0.02 ng/ml (0.00-0.05) 05/10/17 22:26 Microbiology 05/10/17 22:20 Blood - Peripheral Venous Blood Culture - Preliminary Presumptive Mrsa (Pbp2a Pos) 05/11/17 02:53 Urine - Urine Clean Catch Urine Culture - Final NO GROWTH OBTAINED 05/10/17 22:20 Blood - Peripheral Venous Blood Culture - Preliminary Presumptive Mrsa (Pbp2a Pos) 05/11/17 03:00 Nasopharyngeal Swab Influenza Types A,B Antigen (KATHRYN) - Final 05/11/17 03:00 Nasopharyngeal Swab - Final Assessment: This is a 66 year old male with PMHx of COPD (on 3L O2 at home), asthma, DM, CAD, CVA, HTN, hyperlipidemia, gout, renal insufficiency, chronic lower extremity wounds, osteomyelitis who presented to the ED with AMS and lethargy. Plan: 1) Neuro: Acute metabolic encephalopathy 2/2 bacteremia - Mental status back to baseline: A&Ox3 2) ID: Severe sepsis 2/2 presumptive MRSA bactermia - Afebrile - Repeat cultures sent - WBC trending down - ECHO with no echogenicity noted - ESR, CRP elevated - Zosyn discontinued - Vancomycin 500mg IVPB daily - Appreciate ID consult 3) Vascular: Chronic diabetic foot ulcer, chronic osteo - Hx of MRSA - Wound dressing - F/u b/l foot x-rays - Appreciate vascular consult 4) Pulmonary: Asthma, COPD - No acute exacerbation at this time - Continue O2 via NC as needed - Continue Duonebs - Continue Advair 5) Renal: CKD - Cr at baseline - Continue to trend 6) Endocrine: DM - BGM ACHS - ISS ACHS 7) Cardiology: HTN - Resume home medications 8) MSK: Rhabdo - CK trending down - Encourage po intake - Continue IV fluids 9) F/E/N: - Monitor electrolytes - Diabetic, low sodium diet 10) Prophylaxis: - Heparin 5,000u sq q8h 11) Dispo: - Requires continued inpatient care CODE STATUS: FULL CODE Visit type - Emergency Visit Emergency Visit: Yes ED Registration Date: 05/11/17 Care time: The patient presented to the Emergency Department on the above date and was hospitalized for further evaluation of their emergent condition. - New Patient This patient is new to me today: No - Critical Care Critical Care patient: No
[2017-05-13] MEDS: ALBUTEROL SO4 2.5/IPRATROPIUM 0.5 INH SOL 3 ML VIAL.NEB. NEB PRN ×3 (10:26→23:30)
[2017-05-13] MEDS: PANTOPRAZOLE 40 MG TABLET (FP) PO SCH (10:43)
[2017-05-13] MEDS: VANCOMYCIN 500 MG in DEXTROSE 5%-WATER - 100 ML IVPB SCH (10:43)
[2017-05-13] MEDS: ALLOPURINOL 100 MG TABLET (FP) PO SCH (10:43)
[2017-05-13] MEDS: FLUTICASONE/SALMETEROL 100 MCG/50 MCG DISKUS IH SCH ×2 (10:43→21:24)
[2017-05-13] MEDS: CLOPIDOGREL BISULFATE 75 MG TABLET (FP) PO SCH (10:43)
[2017-05-13] MEDS: GABAPENTIN 300 MG CAPSULE (FP) PO SCH ×2 (10:43→21:23)
[2017-05-13] MEDS: FERROUS SO4 325 MG TABLET (FP) PO SCH ×2 (10:43→21:23)
[2017-05-13] MEDS: METOPROLOL SUCCINATE 25 MG TAB.SR.24H (FP) PO SCH (10:44)
[2017-05-13] MEDS: ACETAMINOPHEN 325 MG TABLET (FP) PO PRN ×3 (10:44→23:49)
[2017-05-13] MEDS: TAMSULOSIN HCL 0.4 MG CAP.ER.24H (FP) PO SCH (10:44)
[2017-05-13] MEDS: amLODIPine BESYLATE 5 MG TABLET (FP) PO SCH (10:44)
[2017-05-13] MEDS: FUROSEMIDE 20 MG TABLET (FP) PO SCH (10:44)
[2017-05-13] MEDS: ATORVASTATIN CA 20 MG TABLET (FP) PO SCH (21:23)
[2017-05-13] MEDS: DOCUSATE SODIUM 100 MG CAPSULE (FP) PO SCH (21:23)
[2017-05-13] MEDS: PRAMIPEXOLE DIHYDROCHLORIDE 0.125 MG TABLET PO SCH (22:11)
[2017-05-14] MEDS: SODIUM CHLORIDE 1,000 ML IV SCH ×2 (02:15→10:06)
[2017-05-14] MEDS: HEPARIN NA (PORCINE) 5,000 UNITS/ML 1ML VIAL SQ SCH ×3 (02:42→18:59)
[2017-05-14] MEDS: INSULIN DETEMIR 100 UNITS/ML MDV SQ SCH ×2 (06:07→18:58)
[2017-05-14] MEDS: INSULIN SLIDING SCALE (NOVOLOG) 1 VIAL SQ SCH ×4 (06:10→21:28)
[2017-05-14 07:56] LABS: BASOPHIL 0.7 % (0-2.0); EOSINOPHIL 2.6 % (0-4.5); MCH 21.1 pg (25.7-33.7); MCHC 30.4 g/dl (32.0-35.9); MEAN CELL VOLUME 69.4 fl (80-96); MEAN PLT VOLUME 10.1 fl (7.5-11.1); NEUTROPHILS 75.6 % (42.8-82.8); PLATELET COUNT 93 K/MM3 (134-434); WHITE BLOOD COUNT 9.3 K/mm3 (4.0-10.0)
[2017-05-14 08:36] LABS: ANION GAP 10 (8-16); CALCIUM 8.7 mg/dL (8.5-10.1); CO2 25 mmol/L (21-32)
[2017-05-14 08:40] LABS: CREATININE 1.5 mg/dL (0.7-1.3); GLUCOSE,RANDOM 58 mg/dL (74-106)
--- NOTE | 2017-05-14 08:44 | PN ---
Progress Note (short form) - Note Progress Note: ID Fever and chills 101 today depsite vacnomcycin Had been discussed with Dr Sanders yesterday and the plan was to take him for debridement Selected Entries 05/14/17 05/14/17 07:05 07:10 Temperature 99.5 F Pulse Rate 88 Temp now 101Respiratory 20 Rate Blood Pressure 145/80 Temp now 101 Microbiology 05/10/17 22:20 Blood - Peripheral Venous Blood Culture - Final Mr S Aureus 05/10/17 22:20 Blood - Peripheral Venous Blood Culture - Final Mr S Aureus 05/12/17 09:35 Blood - Peripheral Venous Blood Culture - Preliminary Staphylococcus Latex Coag Pos Laboratory Tests 05/11/17 05/12/17 05/12/17 10:50 06:25 10:30 WBC 27.9 H Hgb Hct Plt Count Neutrophils % Lymphocytes % Monocytes % Eosinophils % ESR BUN Creatinine C-Reactive Protein 18.0 H D Random Vancomycin 22.032 05/12/17 05/13/17 05/14/17 10:40 06:30 07:00 WBC 9.3 D Hgb 9.8 L D Hct 32.2 L Plt Count 93 L D Neutrophils % 75.6 Lymphocytes % 11.9 D Monocytes % 9.2 Eosinophils % 2.6 D ESR 50 H BUN 24 H D Creatinine 1.6 H C-Reactive Protein Random Vancomycin 05/14/17 07:00 WBC Hgb Hct Plt Count Neutrophils % Lymphocytes % Monocytes % Eosinophils % ESR BUN Pending Creatinine Pending C-Reactive Protein Random Vancomycin Assessment MRSA bacteremia secondary to SSTI both feet ? collections still febrile chills Plan Continue vancomycin for now with level ordered Repeat the blood cultures now NOte elevated CRP If persitant bacteremia will need to switch to Daptomcyin Major issue is "source control" Will message Dr Sanders re current findings today Emmanuel BANEGAS
--- NOTE | 2017-05-14 09:53 | PN ---
Progress Note (short form) - Note Progress Note: Subjective: The patient was seen and examined at the bedside, rigors noted 101 fever per RN this AM Current Medications Generic Name Dose Route Start Last Admin Trade Name Freq PRN Reason Stop Dose Admin Acetaminophen 650 mg 05/12/17 23:07 05/13/17 23:49 Tylenol - PO 650 mg Q4H PRN Administration FEVER OR PAIN Albuterol/Ipratropium 1 amp 05/11/17 04:15 05/13/17 23:30 Duoneb - NEB 1 amp Q4H PRN Administration SHORTNESS OF BREATH Allopurinol 200 mg 05/11/17 10:00 05/13/17 10:43 Zyloprim - PO 200 mg DAILY MISSAEL Administration Amlodipine Besylate 5 mg 05/13/17 10:00 05/13/17 10:44 Norvasc - PO 5 mg DAILY MISSAEL Administration Atorvastatin Calcium 20 mg 05/11/17 22:00 05/13/17 21:23 Lipitor - PO 20 mg HS MISSAEL Administration Clopidogrel Bisulfate 75 mg 05/11/17 10:00 05/13/17 10:43 Plavix - PO 75 mg DAILY MISSAEL Administration Docusate Sodium 300 mg 05/11/17 22:00 05/13/17 21:23 Colace - PO 300 mg HS MISSAEL Administration Ferrous Sulfate 325 mg 05/13/17 10:00 05/13/17 21:23 Feosol - PO 325 mg BID MISSAEL Administration Furosemide 20 mg 05/13/17 10:00 05/13/17 10:44 Lasix - PO 20 mg DAILY MISSAEL Administration Gabapentin 300 mg 05/11/17 10:00 05/13/17 21:23 Neurontin - PO 300 mg BID MISSAEL Administration Heparin Sodium (Porcine) 5,000 unit 05/11/17 03:30 05/14/17 02:42 Heparin - SQ 5,000 unit Q8H-IV MISSAEL Administration Sodium Chloride 1,000 mls @ 100 mls/hr 05/11/17 09:30 05/14/17 02:15 Normal Saline - IV 100 mls/hr ASDIR MISSAEL Administration Vancomycin HCl 500 mg/ 100 mls @ 250 mls/hr 05/13/17 10:00 05/13/17 10:43 Dextrose IVPB 250 mls/hr DAILY MISSAEL Administration Protocol Insulin Aspart 1 vial 05/11/17 07:00 05/14/17 06:10 Novolog Vial Sliding Scale - SQ Not Given ACHS [facility] Protocol Insulin Detemir 18 units 05/11/17 07:00 05/14/17 06:07 Levemir Vial SQ 18 units BIDI MISSAEL Administration Metoprolol Succinate 25 mg 05/13/17 10:00 05/13/17 10:44 Toprol Xl - PO 25 mg DAILY MISSAEL Administration Pantoprazole Sodium 40 mg 05/11/17 10:00 05/13/17 10:43 Protonix - PO 40 mg DAILY MISSAEL Administration Pramipexole Dihydrochloride 0.125 mg 05/11/17 22:00 05/13/17 22:11 Mirapex - PO 0.125 mg HS MISSAEL Administration Fluticasone/Salmeterol 1 puff 05/11/17 10:00 05/13/17 21:24 Advair 100mcg/50mcg - IH 1 puff BID MISSAEL Administration Sodium Chloride 250 ml 05/10/17 21:34 05/11/17 01:45 Normal Saline - IV 250 ml Q20M PRN Administration MAP<65mm Hg OR SBP <90 Tamsulosin HCl 0.4 mg 05/13/17 10:00 05/13/17 10:44 Flomax - PO 0.4 mg DAILY MISSAEL Administration Trazodone HCl 50 mg 05/11/17 04:22 Desyrel - PO HS PRN INSOMNIA Objective: Vital Signs Period Temp Pulse Resp BP Sys/Cintron Pulse Ox Last 24 Hr 98.1 F-101.1 F 72-97 18-20 115-163/64-91 95-97 Physical Exam: General: NAD, A&Ox3 Lungs: CTA bilaterally Heart: RRR, S1S2 Abd: Soft, non-tender, non-distended. Normoactive bowel sounds Ext: Left foot with callous on medial plantar surface, no drainage, erythema, tenderness. Left foot, second digit absent. Right foot with plantar surface swelling, no drainage, erythema, tenderness. CBCD WBC 9.3 K/mm3 (4.0-10.0) D 05/14/17 07:00 RBC 4.63 M/mm3 (4.00-5.60) 05/14/17 07:00 Hgb 9.8 GM/dL (11.7-16.9) L D 05/14/17 07:00 Hct 32.2 % (35.4-49) L 05/14/17 07:00 MCV 69.4 fl (80-96) L 05/14/17 07:00 MCHC 30.4 g/dl (32.0-35.9) L 05/14/17 07:00 RDW 20.0 % (11.9-15.9) H 05/14/17 07:00 Plt Count 93 K/MM3 (134-434) L D 05/14/17 07:00 MPV 10.1 fl (7.5-11.1) 05/14/17 07:00 CMP Sodium 140 mmol/L (136-145) 05/14/17 07:00 Potassium 3.9 mmol/L (3.5-5.1) 05/14/17 07:00 Chloride 105 mmol/L (98-107) 05/14/17 07:00 Carbon Dioxide 25 mmol/L (21-32) 05/14/17 07:00 Anion Gap 10 (8-16) 05/14/17 07:00 BUN 19 mg/dL (7-18) H D 05/14/17 07:00 Creatinine 1.5 mg/dL (0.7-1.3) H 05/14/17 07:00 Creat Clearance w eGFR 43.46 (>60) 05/13/17 06:30 Random Glucose 58 mg/dL (74-106) L 05/14/17 07:00 Calcium 8.7 mg/dL (8.5-10.1) 05/14/17 07:00 Total Bilirubin 0.4 mg/dL (0.2-1.0) 05/13/17 06:30 AST 30 U/L (15-37) 05/13/17 06:30 ALT 19 U/L (12-78) 05/13/17 06:30 Alkaline Phosphatase 95 U/L (45-117) 05/13/17 06:30 Total Protein 6.2 g/dl (6.4-8.2) L 05/13/17 06:30 Albumin 2.5 g/dl (3.4-5.0) L 05/13/17 06:30 CARDIAC ENZYMES Creatine Kinase 764 IU/L (39-308) H 05/13/17 06:30 Troponin I 0.02 ng/ml (0.00-0.05) 05/10/17 22:26 Microbiology 05/12/17 09:30 Blood - Peripheral Venous Blood Culture - Preliminary NO GROWTH OBTAINED AFTER 48 HOURS, INCUBATION TO CONTINUE FOR 3 DAYS. 05/12/17 09:35 Blood - Peripheral Venous Blood Culture - Final Presumptive Mrsa (Pbp2a Pos) 05/10/17 22:20 Blood - Peripheral Venous Blood Culture - Final S Aureus 05/10/17 22:20 Blood - Peripheral Venous Blood Culture - Final S Aureus 05/12/17 12:15 Urine - Urine Clean Catch Urine Culture - Final NO GROWTH OBTAINED 05/11/17 02:53 Urine - Urine Clean Catch Urine Culture - Final NO GROWTH OBTAINED 05/11/17 03:00 Nasopharyngeal Swab Influenza Types A,B Antigen (KATHRYN) - Final 05/11/17 03:00 Nasopharyngeal Swab - Final Assessment: This is a 66 year old male with PMHx of COPD (on 3L O2 at home), asthma, DM, CAD, CVA, HTN, hyperlipidemia, gout, renal insufficiency, chronic lower extremity wounds, osteomyelitis who presented to the ED with AMS and lethargy. Plan: 1) ID: Severe sepsis 2/2 MRSA bactermia - Source control: I&D with vascular? - Febrile this AM to 101 - Repeat cultures sent today - WBC wnl - ECHO with no echogenicity noted - ESR, CRP elevated - Continue Vancomycin 500mg IVPB daily. If remains febrile, ID to consider switching to Daptomycin - ID discussed with vascular for possible I&D - Appreciate ID consult 2) Vascular: Chronic diabetic foot ulcer, chronic osteo - Hx of MRSA - Wound dressing - B/l foot x-rays appreciated - Appreciate vascular consult: f/u today 3) Heme: Thrombocytopenia - Likely 2/2 severe sepsis - Continue to monitor 4) Neuro: Acute metabolic encephalopathy 2/2 bacteremia - Mental status back to baseline: A&Ox3 5) Pulmonary: Asthma, COPD - No acute exacerbation at this time - Continue O2 via NC as needed - Continue Duonebs - Continue Advair 6) Renal: CKD - Cr at baseline, continues to improve - Continue to trend 7) Endocrine: DM - BGM ACHS - ISS ACHS 8) Cardiology: HTN - Resume home medications 9) MSK: Rhabdo - CK trending down - Encourage po intake 10) F/E/N: - Monitor electrolytes - Diabetic, low sodium diet 11) Prophylaxis: - Heparin 5,000u sq q8h 12) Dispo: - Requires continued inpatient care CODE STATUS: FULL CODE Visit type - Emergency Visit Emergency Visit: Yes ED Registration Date: 05/11/17 Care time: The patient presented to the Emergency Department on the above date and was hospitalized for further evaluation of their emergent condition. - New Patient This patient is new to me today: No - Critical Care Critical Care patient: No
[2017-05-14] MEDS: ACETAMINOPHEN 325 MG TABLET (FP) PO PRN ×2 (10:07→21:27)
[2017-05-14] MEDS: amLODIPine BESYLATE 5 MG TABLET (FP) PO SCH (10:07)
[2017-05-14] MEDS: METOPROLOL SUCCINATE 25 MG TAB.SR.24H (FP) PO SCH (10:07)
[2017-05-14] MEDS: FUROSEMIDE 20 MG TABLET (FP) PO SCH (10:07)
[2017-05-14] MEDS: FERROUS SO4 325 MG TABLET (FP) PO SCH ×2 (10:07→21:26)
[2017-05-14] MEDS: ALLOPURINOL 100 MG TABLET (FP) PO SCH (10:07)
[2017-05-14] MEDS: PANTOPRAZOLE 40 MG TABLET (FP) PO SCH (10:07)
[2017-05-14] MEDS: TAMSULOSIN HCL 0.4 MG CAP.ER.24H (FP) PO SCH (10:07)
[2017-05-14] MEDS: GABAPENTIN 300 MG CAPSULE (FP) PO SCH ×2 (10:07→21:26)
[2017-05-14] MEDS: CLOPIDOGREL BISULFATE 75 MG TABLET (FP) PO SCH ×2 (10:08→13:04)
[2017-05-14] MEDS: VANCOMYCIN 500 MG in DEXTROSE 5%-WATER - 100 ML IVPB SCH (10:09)
[2017-05-14] MEDS: FLUTICASONE/SALMETEROL 100 MCG/50 MCG DISKUS IH SCH ×2 (10:09→21:28)
[2017-05-14] MEDS: ALBUTEROL SO4 2.5/IPRATROPIUM 0.5 INH SOL 3 ML VIAL.NEB. NEB PRN (11:50)
[2017-05-14 11:56] LABS: CPK 493 IU/L (39-308)
--- NOTE | 2017-05-14 12:46 | PROC ---
Incision and Drainage Indication/Location: Bilateral feet Risks and Benefits Explained: Yes Consent on Chart: Yes Betadine cleansed: Yes Blade Size: 10 Drainage: Left medial foot bloody pus. Right 1st metatarsal area no pus, spongy subQ Iodinated Packin/2 in Sterile Dressing Applied: Yes
[2017-05-14] MEDS ORDERED: PT OWN MED DRAWER 7, Y5N ONE ×2 (14:10→21:20)
[2017-05-14] MEDS: ATORVASTATIN CA 20 MG TABLET (FP) PO SCH (21:26)
[2017-05-14] MEDS: DOCUSATE SODIUM 100 MG CAPSULE (FP) PO SCH (21:27)
[2017-05-14] MEDS: PRAMIPEXOLE DIHYDROCHLORIDE 0.125 MG TABLET PO SCH (21:28)
[2017-05-15] MEDS: SODIUM CHLORIDE 1,000 ML IV SCH ×2 (00:49→11:10)
[2017-05-15] MEDS: HEPARIN NA (PORCINE) 5,000 UNITS/ML 1ML VIAL SQ SCH ×3 (02:14→17:40)
[2017-05-15] MEDS: INSULIN SLIDING SCALE (NOVOLOG) 1 VIAL SQ SCH ×5 (06:49→21:53)
[2017-05-15] MEDS: INSULIN DETEMIR 100 UNITS/ML MDV SQ SCH ×2 (06:49→17:39)
[2017-05-15 09:39] LABS: MCH 21.2 pg (25.7-33.7); MCHC 30.9 g/dl (32.0-35.9); MEAN CELL VOLUME 68.6 fl (80-96); MEAN PLT VOLUME 8.8 fl (7.5-11.1); RDW 19.5 % (11.9-15.9); WHITE BLOOD COUNT 6.8 K/mm3 (4.0-10.0)
[2017-05-15 10:03] LABS: ANION GAP 10 (8-16); CALCIUM 8.4 mg/dL (8.5-10.1); CO2 24 mmol/L (21-32); CREATININE 1.3 mg/dL (0.7-1.3); GLUCOSE,RANDOM 162 mg/dL (74-106)
--- NOTE | 2017-05-15 10:54 | PN ---
Progress Note (short form) - Note Progress Note: Subjective: The patient was seen and examined at the bedside, she is tearful stating he is upset because his family doesn't come to visit him. B/l foot I&D on 05/14: Left foot bloody pus, right 1st metatarsal no pus Current Medications Generic Name Dose Route Start Last Admin Trade Name Freq PRN Reason Stop Dose Admin Acetaminophen 650 mg 05/12/17 23:07 05/13/17 23:49 Tylenol - PO 650 mg Q4H PRN Administration FEVER OR PAIN Albuterol/Ipratropium 1 amp 05/11/17 04:15 05/13/17 23:30 Duoneb - NEB 1 amp Q4H PRN Administration SHORTNESS OF BREATH Allopurinol 200 mg 05/11/17 10:00 05/13/17 10:43 Zyloprim - PO 200 mg DAILY MISSAEL Administration Amlodipine Besylate 5 mg 05/13/17 10:00 05/13/17 10:44 Norvasc - PO 5 mg DAILY MISSAEL Administration Atorvastatin Calcium 20 mg 05/11/17 22:00 05/13/17 21:23 Lipitor - PO 20 mg HS MISSAEL Administration Clopidogrel Bisulfate 75 mg 05/11/17 10:00 05/13/17 10:43 Plavix - PO 75 mg DAILY MISSAEL Administration Docusate Sodium 300 mg 05/11/17 22:00 05/13/17 21:23 Colace - PO 300 mg HS MISSAEL Administration Ferrous Sulfate 325 mg 05/13/17 10:00 05/13/17 21:23 Feosol - PO 325 mg BID MISSAEL Administration Furosemide 20 mg 05/13/17 10:00 05/13/17 10:44 Lasix - PO 20 mg DAILY MISSAEL Administration Gabapentin 300 mg 05/11/17 10:00 05/13/17 21:23 Neurontin - PO 300 mg BID MISSAEL Administration Heparin Sodium (Porcine) 5,000 unit 05/11/17 03:30 05/14/17 02:42 Heparin - SQ 5,000 unit Q8H-IV MISSAEL Administration Sodium Chloride 1,000 mls @ 100 mls/hr 05/11/17 09:30 05/14/17 02:15 Normal Saline - IV 100 mls/hr ASDIR MISSAEL Administration Vancomycin HCl 500 mg/ 100 mls @ 250 mls/hr 05/13/17 10:00 05/13/17 10:43 Dextrose IVPB 250 mls/hr DAILY MISSAEL Administration Protocol Insulin Aspart 1 vial 05/11/17 07:00 05/14/17 06:10 Novolog Vial Sliding Scale - SQ Not Given ACHS [facility] Protocol Insulin Detemir 18 units 05/11/17 07:00 05/14/17 06:07 Levemir Vial SQ 18 units BIDI MISSAEL Administration Metoprolol Succinate 25 mg 05/13/17 10:00 05/13/17 10:44 Toprol Xl - PO 25 mg DAILY MISSAEL Administration Pantoprazole Sodium 40 mg 05/11/17 10:00 05/13/17 10:43 Protonix - PO 40 mg DAILY MISSAEL Administration Pramipexole Dihydrochloride 0.125 mg 05/11/17 22:00 05/13/17 22:11 Mirapex - PO 0.125 mg HS MISSAEL Administration Fluticasone/Salmeterol 1 puff 05/11/17 10:00 05/13/17 21:24 Advair 100mcg/50mcg - IH 1 puff BID MISSAEL Administration Sodium Chloride 250 ml 05/10/17 21:34 05/11/17 01:45 Normal Saline - IV 250 ml Q20M PRN Administration MAP<65mm Hg OR SBP <90 Tamsulosin HCl 0.4 mg 05/13/17 10:00 05/13/17 10:44 Flomax - PO 0.4 mg DAILY MISSAEL Administration Trazodone HCl 50 mg 05/11/17 04:22 Desyrel - PO HS PRN INSOMNIA Objective: Vital Signs Period Temp Pulse Resp BP Sys/Cintron Pulse Ox Last 24 Hr 98.1 F-101.1 F 72-97 18-20 115-163/64-91 95-97 Physical Exam: General: NAD, A&Ox3 Lungs: CTA bilaterally Heart: RRR, S1S2 Abd: Soft, non-tender, non-distended. Normoactive bowel sounds Ext: B/l foot dressing, c/d/i CBCD WBC 6.8 K/mm3 (4.0-10.0) 05/15/17 09:00 RBC 4.33 M/mm3 (4.00-5.60) 05/15/17 09:00 Hgb 9.2 GM/dL (11.7-16.9) L 05/15/17 09:00 Hct 29.7 % (35.4-49) L 05/15/17 09:00 MCV 68.6 fl (80-96) L 05/15/17 09:00 MCHC 30.9 g/dl (32.0-35.9) L 05/15/17 09:00 RDW 19.5 % (11.9-15.9) H 05/15/17 09:00 Plt Count 93 K/MM3 (134-434) L D 05/14/17 07:00 MPV 8.8 fl (7.5-11.1) D 05/15/17 09:00 CMP Sodium 136 mmol/L (136-145) 05/15/17 09:00 Potassium 3.7 mmol/L (3.5-5.1) 05/15/17 09:00 Chloride 102 mmol/L (98-107) 05/15/17 09:00 Carbon Dioxide 24 mmol/L (21-32) 05/15/17 09:00 Anion Gap 10 (8-16) 05/15/17 09:00 BUN 20 mg/dL (7-18) H 05/15/17 09:00 Creatinine 1.3 mg/dL (0.7-1.3) 05/15/17 09:00 Creat Clearance w eGFR 43.46 (>60) 05/13/17 06:30 Random Glucose 162 mg/dL (74-106) H D 05/15/17 09:00 Calcium 8.4 mg/dL (8.5-10.1) L 05/15/17 09:00 Total Bilirubin 0.4 mg/dL (0.2-1.0) 05/13/17 06:30 AST 30 U/L (15-37) 05/13/17 06:30 ALT 19 U/L (12-78) 05/13/17 06:30 Alkaline Phosphatase 95 U/L (45-117) 05/13/17 06:30 Total Protein 6.2 g/dl (6.4-8.2) L 05/13/17 06:30 Albumin 2.5 g/dl (3.4-5.0) L 05/13/17 06:30 CARDIAC ENZYMES Creatine Kinase 493 IU/L (39-308) H 05/14/17 07:00 Troponin I 0.02 ng/ml (0.00-0.05) 05/10/17 22:26 Microbiology 05/12/17 09:30 Blood - Peripheral Venous Blood Culture - Preliminary NO GROWTH OBTAINED AFTER 72 HOURS, INCUBATION TO CONTINUE FOR 2 DAYS. 05/14/17 09:08 Blood - Peripheral Venous Blood Culture - Preliminary NO GROWTH OBTAINED AFTER 24 HOURS, INCUBATION TO CONTINUE FOR 4 DAYS. 05/14/17 09:08 Blood - Peripheral Venous Blood Culture - Preliminary Pending Organism 05/12/17 09:35 Blood - Peripheral Venous Blood Culture - Final Presumptive Mrsa (Pbp2a Pos) 05/10/17 22:20 Blood - Peripheral Venous Blood Culture - Final S Aureus 05/10/17 22:20 Blood - Peripheral Venous Blood Culture - Final S Aureus Assessment: This is a 66 year old male with PMHx of COPD (on 3L O2 at home), asthma, DM, CAD, CVA, HTN, hyperlipidemia, gout, renal insufficiency, chronic lower extremity wounds, osteomyelitis who presented to the ED with AMS and lethargy. Plan: 1) ID: Severe sepsis 2/2 MRSA bactermia - Source control: I&D with vascular? - Febrile yesterday PM 102 - Repeat cultures sent 05/14 - WBC wnl - ECHO with no echogenicity noted - ESR, CRP elevated - Continue Vancomycin 500mg IVPB daily. If remains febrile, ID to consider switching to Daptomycin - ID discussed with vascular for possible I&D - Appreciate ID consult 2) Vascular: Chronic diabetic foot ulcer, chronic osteo - S/p I&D 05/14 - Hx of MRSA - Wound dressing - B/l foot x-rays appreciated - Appreciate vascular consult 3) Heme: Thrombocytopenia - F/u level today - Likely 2/2 severe sepsis - Continue to monitor 4) Neuro: Acute metabolic encephalopathy 2/2 bacteremia - Mental status back to baseline: A&Ox3 5) Pulmonary: Asthma, COPD - No acute exacerbation at this time - Continue O2 via NC as needed - Continue Duonebs - Continue Advair 6) Renal: CKD - Cr at baseline, continues to improve - Continue to trend 7) Endocrine: DM - BGM ACHS - ISS ACHS 8) Cardiology: HTN - Resume home medications 9) MSK: Rhabdo - CK trending down - Encourage po intake 10) F/E/N: - Monitor electrolytes - Diabetic, low sodium diet 11) Prophylaxis: - Heparin 5,000u sq q8h 12) Dispo: - Requires continued inpatient care CODE STATUS: FULL CODE Visit type - Emergency Visit Emergency Visit: Yes ED Registration Date: 05/11/17 Care time: The patient presented to the Emergency Department on the above date and was hospitalized for further evaluation of their emergent condition. - New Patient This patient is new to me today: No - Critical Care Critical Care patient: No
[2017-05-15 11:00] LABS: PLATELET COUNT 80 K/MM3 (134-434); PLATELET ESTIMATE DECREASED (NORMAL)
[2017-05-15 11:01] LABS: ANISOCYTOSIS 1+; HYPOCHROMIA 1+; MICROCYTOSIS 1+
[2017-05-15] MEDS: FLUTICASONE/SALMETEROL 100 MCG/50 MCG DISKUS IH SCH ×2 (11:06→21:54)
[2017-05-15] MEDS: METOPROLOL SUCCINATE 25 MG TAB.SR.24H (FP) PO SCH (11:07)
[2017-05-15] MEDS: VANCOMYCIN 500 MG in DEXTROSE 5%-WATER - 100 ML IVPB SCH (11:07)
[2017-05-15] MEDS: PANTOPRAZOLE 40 MG TABLET (FP) PO SCH (11:07)
[2017-05-15] MEDS: GABAPENTIN 300 MG CAPSULE (FP) PO SCH ×2 (11:07→21:51)
[2017-05-15] MEDS: FUROSEMIDE 20 MG TABLET (FP) PO SCH (11:08)
[2017-05-15] MEDS: TAMSULOSIN HCL 0.4 MG CAP.ER.24H (FP) PO SCH (11:08)
[2017-05-15] MEDS: ALLOPURINOL 100 MG TABLET (FP) PO SCH (11:08)
[2017-05-15] MEDS: FERROUS SO4 325 MG TABLET (FP) PO SCH ×2 (11:08→21:50)
[2017-05-15] MEDS: amLODIPine BESYLATE 5 MG TABLET (FP) PO SCH (11:08)
[2017-05-15] MEDS: CLOPIDOGREL BISULFATE 75 MG TABLET (FP) PO SCH (11:08)
[2017-05-15] MEDS: ALBUTEROL SO4 2.5/IPRATROPIUM 0.5 INH SOL 3 ML VIAL.NEB. NEB PRN (12:03)
--- NOTE | 2017-05-15 17:08 | PN ---
Progress Note, Physician History of Present Illness: OOB in chair No c/o foot pain Remains febrile Repeat BC + WBC down; plt also down Renal function improved - Current Medication List Current Medications: Active Medications Acetaminophen (Tylenol -) 650 mg PO Q4H PRN PRN Reason: FEVER OR PAIN Last Admin: 05/14/17 21:27 Dose: 650 mg Albuterol/Ipratropium (Duoneb -) 1 amp NEB Q4H PRN PRN Reason: SHORTNESS OF BREATH Last Admin: 05/15/17 12:03 Dose: 1 amp Allopurinol (Zyloprim -) 200 mg PO DAILY [facility] Last Admin: 05/15/17 11:08 Dose: 200 mg Amlodipine Besylate (Norvasc -) 5 mg PO DAILY [facility] Last Admin: 05/15/17 11:08 Dose: 5 mg Atorvastatin Calcium (Lipitor -) 20 mg PO HS [facility] Last Admin: 05/14/17 21:26 Dose: 20 mg Clopidogrel Bisulfate (Plavix -) 75 mg PO DAILY [facility] Last Admin: 05/15/17 11:08 Dose: 75 mg Docusate Sodium (Colace -) 300 mg PO HS [facility] Last Admin: 05/14/17 21:27 Dose: 300 mg Ferrous Sulfate (Feosol -) 325 mg PO BID [facility] Last Admin: 05/15/17 11:08 Dose: 325 mg Furosemide (Lasix -) 20 mg PO DAILY [facility] Last Admin: 05/15/17 11:08 Dose: 20 mg Gabapentin (Neurontin -) 300 mg PO BID [facility] Last Admin: 05/15/17 11:07 Dose: 300 mg Heparin Sodium (Porcine) (Heparin -) 5,000 unit SQ Q8H-IV MISSAEL Last Admin: 05/15/17 11:07 Dose: 5,000 unit Sodium Chloride (Normal Saline -) 1,000 mls @ 100 mls/hr IV ASDIR MISSAEL Last Admin: 05/15/17 11:10 Dose: 100 mls/hr Vancomycin HCl 500 mg/ (Dextrose) 100 mls @ 250 mls/hr IVPB DAILY MISSAEL PRN Reason: Protocol Last Admin: 05/15/17 11:07 Dose: 250 mls/hr Insulin Aspart (Novolog Vial Sliding Scale -) 1 vial SQ ACHS MISSAEL PRN Reason: Protocol Last Admin: 05/15/17 13:02 Dose: 2 units Insulin Detemir (Levemir Vial) 18 units SQ BIDI [facility] Last Admin: 05/15/17 06:49 Dose: Not Given Metoprolol Succinate (Toprol Xl -) 25 mg PO DAILY [facility] Last Admin: 05/15/17 11:07 Dose: 25 mg Pantoprazole Sodium (Protonix -) 40 mg PO DAILY [facility] Last Admin: 05/15/17 11:07 Dose: 40 mg Pramipexole Dihydrochloride (Mirapex -) 0.125 mg PO HS [facility] Last Admin: 05/14/17 21:28 Dose: 0.125 mg Fluticasone/Salmeterol (Advair 100mcg/50mcg -) 1 puff IH BID [facility] Last Admin: 05/15/17 11:06 Dose: 1 puff Sodium Chloride (Normal Saline -) 250 ml IV Q20M PRN PRN Reason: MAP<65mm Hg OR SBP <90 Last Admin: 05/11/17 01:45 Dose: 250 ml Tamsulosin HCl (Flomax -) 0.4 mg PO DAILY [facility] Last Admin: 05/15/17 11:08 Dose: 0.4 mg Trazodone HCl (Desyrel -) 50 mg PO HS PRN PRN Reason: INSOMNIA - Objective Vital Signs: Vital Signs Temperature 97.9 F 05/15/17 15:25 Pulse Rate 78 05/15/17 15:25 Respiratory Rate 16 05/15/17 15:25 Blood Pressure 158/85 05/15/17 15:25 O2 Sat by Pulse Oximetry (%) 97 05/15/17 09:00 Constitutional: Yes: No Distress Eyes: Yes: Conjunctiva Clear Cardiovascular: Yes: Regular Rate and Rhythm, S1, S2 Respiratory: Yes: CTA Bilaterally Gastrointestinal: Yes: Normal Bowel Sounds, Soft Extremities: Yes: Other (post op dressings in place) Labs: CBC, BMP 05/15/17 09:00 05/15/17 09:00 INR, PTT INR 1.12 (0.82-1.09) 05/10/17 22:26 Assessment/Plan MRSA bacteremia/ sepsis secondary to foot source Azotemia- improved Thrombocytopenia Increase vancomycin for improved renal function
[2017-05-15] MEDS ORDERED: INSULIN DETEMIR 100 UNITS/ML MDV SQ ONE (18:23)
[2017-05-15] MEDS: ACETAMINOPHEN 325 MG TABLET (FP) PO PRN (19:21)
[2017-05-15] MEDS ORDERED: PT OWN MED DRAWER 7, Y5N ONE (21:47)
[2017-05-15] MEDS: ATORVASTATIN CA 20 MG TABLET (FP) PO SCH (21:50)
[2017-05-15] MEDS: DOCUSATE SODIUM 100 MG CAPSULE (FP) PO SCH ×2 (21:50→21:58)
[2017-05-15] MEDS: PRAMIPEXOLE DIHYDROCHLORIDE 0.125 MG TABLET PO SCH (21:51)
[2017-05-15] MEDS: VANCOMYCIN 1,000 MG in DEXTROSE 5%-WATER - 250 ML IVPB SCH ×2 (21:52→22:45)
[2017-05-16] MEDS: SODIUM CHLORIDE 1,000 ML IV SCH ×2 (01:26→14:43)
[2017-05-16] MEDS: HEPARIN NA (PORCINE) 5,000 UNITS/ML 1ML VIAL SQ SCH ×3 (01:27→17:00)
[2017-05-16] MEDS: ACETAMINOPHEN 325 MG TABLET (FP) PO PRN ×2 (03:01→16:59)
[2017-05-16] MEDS: INSULIN DETEMIR 100 UNITS/ML MDV SQ SCH ×2 (06:59→17:02)
[2017-05-16] MEDS: INSULIN SLIDING SCALE (NOVOLOG) 1 VIAL SQ SCH ×4 (07:00→21:27)
[2017-05-16] MEDS ORDERED: oxyCODONE HCL 5 MG TABLET PO ONE (08:30)
[2017-05-16] MEDS: ALLOPURINOL 100 MG TABLET (FP) PO SCH (09:24)
[2017-05-16] MEDS: GABAPENTIN 300 MG CAPSULE (FP) PO SCH ×2 (09:24→21:29)
[2017-05-16] MEDS: CLOPIDOGREL BISULFATE 75 MG TABLET (FP) PO SCH (09:24)
[2017-05-16] MEDS: amLODIPine BESYLATE 5 MG TABLET (FP) PO SCH (09:24)
[2017-05-16] MEDS: FUROSEMIDE 20 MG TABLET (FP) PO SCH (09:24)
[2017-05-16] MEDS: METOPROLOL SUCCINATE 25 MG TAB.SR.24H (FP) PO SCH (09:24)
[2017-05-16] MEDS: PANTOPRAZOLE 40 MG TABLET (FP) PO SCH (09:25)
[2017-05-16] MEDS: TAMSULOSIN HCL 0.4 MG CAP.ER.24H (FP) PO SCH (09:25)
[2017-05-16] MEDS: FERROUS SO4 325 MG TABLET (FP) PO SCH ×2 (09:25→21:29)
[2017-05-16] MEDS: VANCOMYCIN 1,000 MG in DEXTROSE 5%-WATER - 250 ML IVPB SCH ×2 (09:26→21:29)
[2017-05-16] MEDS ORDERED: oxyCODONE HCL 5 MG TABLET ONE ×2 (09:30→16:45)
--- NOTE | 2017-05-16 09:44 | PN ---
Progress Note, Physician Chief Complaint: ID Vancomycin Debridement of left foot abscess 2 days ago Fevers down for now Blood culture on the positive - Current Medication List Current Medications: Active Medications Acetaminophen (Tylenol -) 650 mg PO Q4H PRN PRN Reason: FEVER OR PAIN Last Admin: 05/16/17 03:01 Dose: 650 mg Albuterol/Ipratropium (Duoneb -) 1 amp NEB Q4H PRN PRN Reason: SHORTNESS OF BREATH Last Admin: 05/15/17 12:03 Dose: 1 amp Allopurinol (Zyloprim -) 200 mg PO DAILY [facility] Last Admin: 05/16/17 09:24 Dose: 200 mg Amlodipine Besylate (Norvasc -) 5 mg PO DAILY [facility] Last Admin: 05/16/17 09:24 Dose: 5 mg Atorvastatin Calcium (Lipitor -) 20 mg PO HS [facility] Last Admin: 05/15/17 21:50 Dose: 20 mg Clopidogrel Bisulfate (Plavix -) 75 mg PO DAILY [facility] Last Admin: 05/16/17 09:24 Dose: 75 mg Docusate Sodium (Colace -) 300 mg PO HS [facility] Last Admin: 05/15/17 21:58 Dose: Not Given Ferrous Sulfate (Feosol -) 325 mg PO BID [facility] Last Admin: 05/16/17 09:25 Dose: 325 mg Furosemide (Lasix -) 20 mg PO DAILY [facility] Last Admin: 05/16/17 09:24 Dose: 20 mg Gabapentin (Neurontin -) 300 mg PO BID [facility] Last Admin: 05/16/17 09:24 Dose: 300 mg Heparin Sodium (Porcine) (Heparin -) 5,000 unit SQ Q8H-IV MISSAEL Last Admin: 05/16/17 09:25 Dose: 5,000 unit Sodium Chloride (Normal Saline -) 1,000 mls @ 100 mls/hr IV ASDIR [facility] Last Admin: 05/16/17 01:26 Dose: 100 mls/hr Vancomycin HCl 1,000 mg/ (Dextrose) 250 mls @ 166.667 mls/hr IVPB BID [facility] Last Admin: 05/16/17 09:26 Dose: 166.667 mls/hr Insulin Aspart (Novolog Vial Sliding Scale -) 1 vial SQ ACHS MISSAEL PRN Reason: Protocol Last Admin: 05/16/17 07:00 Dose: Not Given Insulin Detemir (Levemir Vial) 18 units SQ BIDI [facility] Last Admin: 05/16/17 06:59 Dose: 18 units Metoprolol Succinate (Toprol Xl -) 25 mg PO DAILY [facility] Last Admin: 05/16/17 09:24 Dose: 25 mg Pantoprazole Sodium (Protonix -) 40 mg PO DAILY [facility] Last Admin: 05/16/17 09:25 Dose: 40 mg Pramipexole Dihydrochloride (Mirapex -) 0.125 mg PO HS [facility] Last Admin: 05/15/17 21:51 Dose: 0.125 mg Fluticasone/Salmeterol (Advair 100mcg/50mcg -) 1 puff IH BID [facility] Last Admin: 05/15/17 21:54 Dose: 1 puff Sodium Chloride (Normal Saline -) 250 ml IV Q20M PRN PRN Reason: MAP<65mm Hg OR SBP <90 Last Admin: 05/11/17 01:45 Dose: 250 ml Tamsulosin HCl (Flomax -) 0.4 mg PO DAILY [facility] Last Admin: 05/16/17 09:25 Dose: 0.4 mg Trazodone HCl (Desyrel -) 50 mg PO HS PRN PRN Reason: INSOMNIA - Objective Vital Signs: Vital Signs Temperature 98.1 F 05/16/17 06:00 Pulse Rate 83 05/16/17 06:00 Respiratory Rate 18 05/16/17 06:00 Blood Pressure 126/62 05/16/17 06:00 O2 Sat by Pulse Oximetry (%) 97 05/15/17 21:00 Constitutional: Yes: Well Nourished, No Distress Cardiovascular: Yes: S1, S2 Respiratory: Yes: WNL, Regular, CTA Bilaterally Gastrointestinal: Yes: Soft. No: Tenderness Extremities: Yes: Other (LE dressing) Labs: CBC, BMP 05/15/17 09:00 05/15/17 09:00 INR, PTT INR 1.12 (0.82-1.09) 05/10/17 22:26 Assessment/Plan Microbiology 05/12/17 09:35 Blood - Peripheral Venous Blood Culture - Final Presumptive Mrsa (Pbp2a Pos) 05/10/17 22:20 Blood - Peripheral Venous Blood Culture - Final Mr S Aureus 05/10/17 22:20 Blood - Peripheral Venous Blood Culture - Final Mr S Aureus 05/14/17 09:08 Blood - Peripheral Venous Blood Culture - Preliminary Pending Organism 05/14/17 09:08 Blood - Peripheral Venous Blood Culture - Preliminary Pending Organism Laboratory Tests 05/12/17 05/15/17 05/15/17 10:30 09:00 09:00 WBC 6.8 Hgb 9.2 L Hct 29.7 L Plt Count 80 L BUN 20 H Creatinine 1.3 Random Vancomycin 22.032 Assessment Foot abscess Persistant bacteremia MRSA Plan If bacteremia persists will need to change antibiotics ? Dapto & Ceftaroline combo Would then consider DIMAS Benitez MD
[2017-05-16] MEDS: FLUTICASONE/SALMETEROL 100 MCG/50 MCG DISKUS IH SCH ×2 (10:12→21:34)
--- NOTE | 2017-05-16 14:15 | PN ---
Physical Exam: SUBJECTIVE: Patient seen and examined. He has no complaints he feels well, he is wondering when he can ambulate again. Events: - Afebrile OBJECTIVE: Vital Signs Period Temp Pulse Resp BP Sys/Cintron Pulse Ox Last 24 Hr 97.9 F-98.1 F 74-83 16-20 126-160/62-86 97-98 PE Neuro: alert, awake, cn 2-12 intact Pulm: CTAB +NC CV: s1 s2 rrr nomrg Abd: s nt nd +bs Ext: bilateral feet dressing KAMINI, + 1 edema, venous skin changes Laboratory Results - last 24 hr 05/15/17 05/15/17 05/16/17 17:23 20:24 05:59 POC Glucometer 164 163 131 Vancomycin Pre-Dose 05/16/17 05/16/17 10:15 12:28 POC Glucometer 154 Vancomycin Pre-Dose 22.244 H* D Active Medications Generic Name Dose Route Start Last Admin Trade Name Freq PRN Reason Stop Dose Admin Acetaminophen 650 mg 05/12/17 23:07 05/16/17 03:01 Tylenol - PO 650 mg Q4H PRN Administration FEVER OR PAIN Albuterol/Ipratropium 1 amp 05/11/17 04:15 05/15/17 12:03 Duoneb - NEB 1 amp Q4H PRN Administration SHORTNESS OF BREATH Allopurinol 200 mg 05/11/17 10:00 05/16/17 09:24 Zyloprim - PO 200 mg DAILY MISSAEL Administration Amlodipine Besylate 5 mg 05/13/17 10:00 05/16/17 09:24 Norvasc - PO 5 mg DAILY MISSAEL Administration Atorvastatin Calcium 20 mg 05/11/17 22:00 05/15/17 21:50 Lipitor - PO 20 mg HS MISSAEL Administration Clopidogrel Bisulfate 75 mg 05/11/17 10:00 05/16/17 09:24 Plavix - PO 75 mg DAILY MISSAEL Administration Docusate Sodium 300 mg 05/11/17 22:00 05/15/17 21:58 Colace - PO Not Given HS MISSAEL Ferrous Sulfate 325 mg 05/13/17 10:00 05/16/17 09:25 Feosol - PO 325 mg BID MISSAEL Administration Furosemide 20 mg 05/13/17 10:00 05/16/17 09:24 Lasix - PO 20 mg DAILY MISSAEL Administration Gabapentin 300 mg 05/11/17 10:00 05/16/17 09:24 Neurontin - PO 300 mg BID MISSAEL Administration Heparin Sodium (Porcine) 5,000 unit 05/11/17 03:30 05/16/17 09:25 Heparin - SQ 5,000 unit Q8H-IV MISSAEL Administration Sodium Chloride 1,000 mls @ 100 mls/hr 05/11/17 09:30 05/16/17 01:26 Normal Saline - IV 100 mls/hr ASDIR MISSAEL Administration Vancomycin HCl 1,000 mg/ 250 mls @ 166.667 mls/hr 05/15/17 22:00 05/16/17 09:26 Dextrose IVPB 166.667 mls/hr BID MISSAEL Administration Insulin Aspart 1 vial 05/11/17 07:00 05/16/17 07:00 Novolog Vial Sliding Scale - SQ Not Given [facility] Protocol Insulin Detemir 18 units 05/11/17 07:00 05/16/17 06:59 Levemir Vial SQ 18 units BIDI MISSAEL Administration Metoprolol Succinate 25 mg 05/13/17 10:00 05/16/17 09:24 Toprol Xl - PO 25 mg DAILY MISSAEL Administration Pantoprazole Sodium 40 mg 05/11/17 10:00 05/16/17 09:25 Protonix - PO 40 mg DAILY MISSAEL Administration Pramipexole Dihydrochloride 0.125 mg 05/11/17 22:00 05/15/17 21:51 Mirapex - PO 0.125 mg HS MISSAEL Administration Fluticasone/Salmeterol 1 puff 05/11/17 10:00 05/16/17 10:12 Advair 100mcg/50mcg - IH 1 puff BID MISSAEL Administration Sodium Chloride 250 ml 05/10/17 21:34 05/11/17 01:45 Normal Saline - IV 250 ml Q20M PRN Administration MAP<65mm Hg OR SBP <90 Tamsulosin HCl 0.4 mg 05/13/17 10:00 05/16/17 09:25 Flomax - PO 0.4 mg DAILY MISSAEL Administration Trazodone HCl 50 mg 05/11/17 04:22 Desyrel - PO HS PRN INSOMNIA Microbiology 05/14/17 13:00 Gram Stain - Final Foot - Left Plantar Wound Culture - Preliminary Presumptive Mrsa (Pbp2a Pos) 05/14/17 09:08 Blood Culture - Preliminary Blood - Peripheral Venous Presumptive Mrsa (Pbp2a Pos) 05/14/17 09:08 Blood Culture - Preliminary Blood - Peripheral Venous Presumptive Mrsa (Pbp2a Pos) 05/10/17 22:20 Blood Culture - Final Blood - Peripheral Venous S Aureus 05/12/17 09:30 Blood Culture - Preliminary Blood - Peripheral Venous NO GROWTH OBTAINED AFTER 96 HOURS, INCUBATION TO CONTINUE FOR 1 DAYS. Assessment: 66 year old male with PMHx of COPD (on 3L O2 at home), asthma, DM, CAD, CVA, HTN, HLD, gout, renal insufficiency, chronic lower extremity wounds, osteomyelitis admitted with AMS and lethargy. Plan: 1. Severe sepsis 2/2 MRSA bacteremia - 05/14: Blood cx positive MRSA - Repeat blood cx drawn and pending today - Persistent bacteremia ID to change ABX Dapto & Ceftaroline combo and will need to repeat ECHO - Continue Vancomycin 500mg IVPB daily 2. Chronic diabetic foot ulcer, chronic osteo, MRSA - S/p I&D 05/14 - Vascular to eval dressing today 3. Thrombocytopenia - Likely 2/2 severe sepsis vs medication - Will trend 4. Acute metabolic encephalopathy 2/2 bacteremia - Mental status at baseline 5. Asthma, COPD - No acute exacerbation at this time - Continue Duonebs - Continue Advair 6. CKD - Cr at baseline - Stop fluids 7. DM II - AM Glucose controlled - BGM, ISS ACHS 8. HTN - Norvasc 5mg daily - Lasix 20mg daily - Metoprolol xl 25mg day 9. Rhabdo - CK trending down - Encourage po intake 10. Prophylaxis: - Heparin 5,000u sq q8h 11. Dispo: - Requires continued inpatient care CODE STATUS: FULL CODE Visit type - Emergency Visit Emergency Visit: Yes ED Registration Date: 05/11/17 Care time: The patient presented to the Emergency Department on the above date and was hospitalized for further evaluation of their emergent condition. - New Patient This patient is new to me today: Yes Date on this admission: 05/16/17 - Critical Care Critical Care patient: No
--- NOTE | 2017-05-16 15:44 | PN ---
Progress Note (short form) - Note Progress Note: No pain Wound dressing dry, culture with MRSA Will need daily irrigation and packing. Eventually left BKA will likely be needed but patient not willing to consent now.
[2017-05-16] MEDS: oxyCODONE HCL 5 MG TABLET PO PRN ×2 (17:00→23:17)
[2017-05-16] MEDS ORDERED: PT OWN MED DRAWER 7, Y5N ONE (21:02)
[2017-05-16] MEDS: PRAMIPEXOLE DIHYDROCHLORIDE 0.125 MG TABLET PO SCH (21:29)
[2017-05-16] MEDS: ATORVASTATIN CA 20 MG TABLET (FP) PO SCH (21:29)
[2017-05-16] MEDS: DOCUSATE SODIUM 100 MG CAPSULE (FP) PO SCH (21:34)
[2017-05-16] MEDS: ALBUTEROL SO4 2.5/IPRATROPIUM 0.5 INH SOL 3 ML VIAL.NEB. NEB PRN (21:53)
[2017-05-17] MEDS: ACETAMINOPHEN 325 MG TABLET (FP) PO PRN ×3 (01:00→22:06)
[2017-05-17] MEDS: HEPARIN NA (PORCINE) 5,000 UNITS/ML 1ML VIAL SQ SCH ×3 (01:29→17:46)
[2017-05-17] MEDS: INSULIN SLIDING SCALE (NOVOLOG) 1 VIAL SQ SCH ×4 (06:11→22:00)
[2017-05-17] MEDS: INSULIN DETEMIR 100 UNITS/ML MDV SQ SCH ×2 (06:13→17:46)
[2017-05-17] MEDS: ALBUTEROL SO4 2.5/IPRATROPIUM 0.5 INH SOL 3 ML VIAL.NEB. NEB PRN ×2 (06:30→22:05)
[2017-05-17 08:39] LABS: MCH 21.1 pg (25.7-33.7); MCHC 30.7 g/dl (32.0-35.9); MEAN CELL VOLUME 68.7 fl (80-96); MEAN PLT VOLUME 9.8 fl (7.5-11.1); PLATELET COUNT 150 K/MM3 (134-434); WHITE BLOOD COUNT 6.5 K/mm3 (4.0-10.0)
[2017-05-17 08:49] LABS: EOSINOPHIL 6.5 % (0-4.5); MCH 21.1 pg (25.7-33.7); MCHC 30.6 g/dl (32.0-35.9); NEUTROPHILS 63.6 % (42.8-82.8); PLATELET COUNT 142 K/MM3 (134-434); RDW 19.6 % (11.9-15.9); WHITE BLOOD COUNT 6.7 K/mm3 (4.0-10.0)
[2017-05-17 08:57] LABS: ANION GAP 9 (8-16); CO2 27 mmol/L (21-32); CREATININE 1.2 mg/dL (0.7-1.3); GLUCOSE,RANDOM 66 mg/dL (74-106)
--- NOTE | 2017-05-17 09:23 | PN ---
Physical Exam: INFECTIOUS DISEASE SUBJECTIVE: Patient seen and examined. Denies fever/chills/CP/SOB. Feeling much better. No pain in L food OBJECTIVE: Vital Signs Period Temp Pulse Resp BP Sys/Cintron Pulse Ox Last 24 Hr 97.6 F-98.4 F 59-81 16-20 122-147/70-87 98-99 GEN: AAOx3, NAD, Lying comfortably. Not confused HEENT: PERRLA, EOMi CV: S1, S2, RRR LUNG: CTABL ABD: Distended, NT, hypoactive BS MSK: L foot wrapped tightly s/p debridement Active Medications Generic Name Dose Route Start Last Admin Trade Name Freq PRN Reason Stop Dose Admin Acetaminophen 650 mg 05/12/17 23:07 05/17/17 01:00 Tylenol - PO 650 mg Q4H PRN Administration FEVER OR PAIN Albuterol/Ipratropium 1 amp 05/11/17 04:15 05/17/17 06:30 Duoneb - NEB 1 amp Q4H PRN Administration SHORTNESS OF BREATH Allopurinol 200 mg 05/11/17 10:00 05/16/17 09:24 Zyloprim - PO 200 mg DAILY MISSAEL Administration Amlodipine Besylate 5 mg 05/13/17 10:00 05/16/17 09:24 Norvasc - PO 5 mg DAILY MISSAEL Administration Atorvastatin Calcium 20 mg 05/11/17 22:00 05/16/17 21:29 Lipitor - PO 20 mg HS MISSAEL Administration Clopidogrel Bisulfate 75 mg 05/11/17 10:00 05/16/17 09:24 Plavix - PO 75 mg DAILY MISSAEL Administration Docusate Sodium 300 mg 05/11/17 22:00 05/16/17 21:34 Colace - PO Not Given HS MISSAEL Ferrous Sulfate 325 mg 05/13/17 10:00 05/16/17 21:29 Feosol - PO 325 mg BID MISSAEL Administration Furosemide 20 mg 05/13/17 10:00 05/16/17 09:24 Lasix - PO 20 mg DAILY MISSAEL Administration Gabapentin 300 mg 05/11/17 10:00 05/16/17 21:29 Neurontin - PO 300 mg BID MISSAEL Administration Heparin Sodium (Porcine) 5,000 unit 05/11/17 03:30 05/17/17 01:29 Heparin - SQ 5,000 unit Q8H-IV MISSAEL Administration Vancomycin HCl 1,000 mg/ 250 mls @ 166.667 mls/hr 05/15/17 22:00 05/16/17 21:29 Dextrose IVPB 166.667 mls/hr BID MISSAEL Administration Insulin Aspart 1 vial 05/11/17 07:00 05/17/17 06:11 Novolog Vial Sliding Scale - SQ Not Given ACHS [facility] Protocol Insulin Detemir 18 units 05/11/17 07:00 05/17/17 06:13 Levemir Vial SQ Not Given BIDI MISSAEL Metoprolol Succinate 25 mg 05/13/17 10:00 05/16/17 09:24 Toprol Xl - PO 25 mg DAILY MISSAEL Administration Oxycodone HCl 5 mg 05/16/17 18:51 05/16/17 23:17 Roxicodone - PO 5 mg Q4H PRN Administration PAIN Pantoprazole Sodium 40 mg 05/11/17 10:00 05/16/17 09:25 Protonix - PO 40 mg DAILY MISSAEL Administration Pramipexole Dihydrochloride 0.125 mg 05/11/17 22:00 05/16/17 21:29 Mirapex - PO 0.125 mg HS MISSAEL Administration Fluticasone/Salmeterol 1 puff 05/11/17 10:00 05/16/17 21:34 Advair 100mcg/50mcg - IH 1 puff BID MISSAEL Administration Tamsulosin HCl 0.4 mg 05/13/17 10:00 05/16/17 09:25 Flomax - PO 0.4 mg DAILY MISSAEL Administration Trazodone HCl 50 mg 05/11/17 04:22 Desyrel - PO HS PRN INSOMNIA CBC, BMP 05/17/17 07:44 05/17/17 06:50 Microbiology 05/14/17 13:00 Foot - Left Plantar Gram Stain - Final 05/16/17 06:00 Blood - Peripheral Venous Blood Culture - Preliminary NO GROWTH OBTAINED AFTER 24 HOURS, INCUBATION TO CONTINUE FOR 4 DAYS. 05/16/17 06:00 Blood - Peripheral Venous Blood Culture - Preliminary NO GROWTH OBTAINED AFTER 24 HOURS, INCUBATION TO CONTINUE FOR 4 DAYS. 05/14/17 13:00 Foot - Left Plantar Wound Culture - Preliminary Presumptive Mrsa (Pbp2a Pos) 05/14/17 09:08 Blood - Peripheral Venous Blood Culture - Preliminary Presumptive Mrsa (Pbp2a Pos) ASSESSMENT/PLAN: Pt is a 66yo with PMHx of DM2 and recent history of recurrent MRSA bacteremia and chronic osteomyelitis of R foot (treated in Mar/Apr with 6 weeks of IV abx) , who was admitted with AMS, found to have likely MRSA bacteremia # MRSA Bacteremia - secondary to L medial foot abscess - S/p abscess drainage on 05/14, wound cx +MRSA - Had been persistently bacteremic with +MRSA up until procedure, cultures drawn after procedure are negative so far - Hold vancomycin today due to elevated trough - If bacteremia persists, consider changing antibiotics to Dapto + Ceftaroline combo + consider DIMAS Discussed w/ Dr Domínguez. Will follow Keith Barboza MD - PGY1 Infectious Disease Visit type - Emergency Visit Emergency Visit: No - New Patient This patient is new to me today: No - Critical Care Critical Care patient: No
[2017-05-17] MEDS: CLOPIDOGREL BISULFATE 75 MG TABLET (FP) PO SCH (10:34)
[2017-05-17] MEDS: FUROSEMIDE 20 MG TABLET (FP) PO SCH (10:34)
[2017-05-17] MEDS: GABAPENTIN 300 MG CAPSULE (FP) PO SCH ×2 (10:34→21:58)
[2017-05-17] MEDS: ALLOPURINOL 100 MG TABLET (FP) PO SCH (10:34)
[2017-05-17] MEDS: PANTOPRAZOLE 40 MG TABLET (FP) PO SCH (10:35)
[2017-05-17] MEDS: amLODIPine BESYLATE 5 MG TABLET (FP) PO SCH (10:35)
[2017-05-17] MEDS: TAMSULOSIN HCL 0.4 MG CAP.ER.24H (FP) PO SCH (10:35)
[2017-05-17] MEDS: METOPROLOL SUCCINATE 25 MG TAB.SR.24H (FP) PO SCH (10:35)
[2017-05-17] MEDS: FERROUS SO4 325 MG TABLET (FP) PO SCH ×2 (10:35→21:58)
[2017-05-17] MEDS: FLUTICASONE/SALMETEROL 100 MCG/50 MCG DISKUS IH SCH ×2 (10:37→21:58)
[2017-05-17] MEDS: VANCOMYCIN 1,000 MG in DEXTROSE 5%-WATER - 250 ML IVPB SCH (10:38)
[2017-05-17] MEDS: oxyCODONE HCL 5 MG TABLET PO PRN ×2 (15:38→22:06)
--- NOTE | 2017-05-17 15:43 | PN ---
Physical Exam: SUBJECTIVE: Patient seen and examined. He is oob to chair, feeling well, ambulated with PT OBJECTIVE: Vital Signs Period Temp Pulse Resp BP Sys/Cintron Pulse Ox Last 24 Hr 97.6 F-98.3 F 59-74 18-20 131-147/73-87 99 PE Neuro: alert, awake, cn 2-12 intact Pulm: CTAB +NC CV: s1 s2 rrr no mrg Abd: s nt nd +bs Ext: bilateral feet dressing KAMINI, + 1 edema, venous skin changes Laboratory Results - last 24 hr 05/17/17 05/17/17 05/17/17 06:50 06:50 07:44 WBC 6.5 6.7 RBC 4.12 4.10 Hgb 8.7 L 8.7 L Hct 28.3 L 28.3 L MCV 68.7 L 69.0 L MCH 21.1 L 21.1 L MCHC 30.7 L 30.6 L RDW 20.0 H 19.6 H Plt Count 150 D 142 MPV 9.8 D 9.0 Neutrophils % 63.6 Lymphocytes % 17.5 D Monocytes % 11.4 H Eosinophils % 6.5 H D Basophils % 1.0 Sodium 141 Potassium 3.7 Chloride 105 Carbon Dioxide 27 Anion Gap 9 BUN 13 D Creatinine 1.2 POC Glucometer Random Glucose 66 L D Calcium 8.0 L Active Medications Generic Name Dose Route Start Last Admin Trade Name Freq PRN Reason Stop Dose Admin Acetaminophen 650 mg 05/12/17 23:07 05/17/17 15:38 Tylenol - PO 650 mg Q4H PRN Administration FEVER OR PAIN Albuterol/Ipratropium 1 amp 05/11/17 04:15 05/17/17 06:30 Duoneb - NEB 1 amp Q4H PRN Administration SHORTNESS OF BREATH Allopurinol 200 mg 05/11/17 10:00 05/17/17 10:34 Zyloprim - PO 200 mg DAILY MISSAEL Administration Amlodipine Besylate 5 mg 05/13/17 10:00 05/17/17 10:35 Norvasc - PO 5 mg DAILY MISSAEL Administration Atorvastatin Calcium 20 mg 05/11/17 22:00 05/16/17 21:29 Lipitor - PO 20 mg HS MISSAEL Administration Clopidogrel Bisulfate 75 mg 05/11/17 10:00 05/17/17 10:34 Plavix - PO 75 mg DAILY MISSAEL Administration Docusate Sodium 300 mg 05/11/17 22:00 05/16/17 21:34 Colace - PO Not Given HS MISSAEL Ferrous Sulfate 325 mg 05/13/17 10:00 05/17/17 10:35 Feosol - PO 325 mg BID MISSAEL Administration Furosemide 20 mg 05/13/17 10:00 05/17/17 10:34 Lasix - PO 20 mg DAILY MISSAEL Administration Gabapentin 300 mg 05/11/17 10:00 05/17/17 10:34 Neurontin - PO 300 mg BID MISSAEL Administration Heparin Sodium (Porcine) 5,000 unit 05/11/17 03:30 05/17/17 10:35 Heparin - SQ 5,000 unit Q8H-IV MISSAEL Administration Insulin Aspart 1 vial 05/11/17 07:00 05/17/17 06:11 Novolog Vial Sliding Scale - SQ Not Given ACHS [facility] Protocol Insulin Detemir 18 units 05/11/17 07:00 05/17/17 06:13 Levemir Vial SQ Not Given BIDI MISSAEL Metoprolol Succinate 25 mg 05/13/17 10:00 05/17/17 10:35 Toprol Xl - PO 25 mg DAILY MISSAEL Administration Oxycodone HCl 5 mg 05/16/17 18:51 05/17/17 15:38 Roxicodone - PO 5 mg Q4H PRN Administration PAIN Pantoprazole Sodium 40 mg 05/11/17 10:00 05/17/17 10:35 Protonix - PO 40 mg DAILY MISSAEL Administration Pramipexole Dihydrochloride 0.125 mg 05/11/17 22:00 05/16/17 21:29 Mirapex - PO 0.125 mg HS MISSAEL Administration Fluticasone/Salmeterol 1 puff 05/11/17 10:00 05/17/17 10:37 Advair 100mcg/50mcg - IH 1 puff BID MISSAEL Administration Tamsulosin HCl 0.4 mg 05/13/17 10:00 05/17/17 10:35 Flomax - PO 0.4 mg DAILY MISSAEL Administration Trazodone HCl 50 mg 05/11/17 04:22 Desyrel - PO HS PRN INSOMNIA Microbiology 05/14/17 13:00 Gram Stain - Final Foot - Left Plantar Wound Culture - Final Mr S Aureus 05/14/17 09:08 Blood Culture - Final Blood - Peripheral Venous S Aureus 05/14/17 09:08 Blood Culture - Final Blood - Peripheral Venous Mr S Aureus 05/12/17 09:30 Blood Culture - Final Blood - Peripheral Venous NO GROWTH AFTER 5 DAYS INCUBATION 05/16/17 06:00 Blood Culture - Preliminary Blood - Peripheral Venous NO GROWTH OBTAINED AFTER 24 HOURS, INCUBATION TO CONTINUE FOR 4 DAYS. 05/16/17 06:00 Blood Culture - Preliminary Blood - Peripheral Venous NO GROWTH OBTAINED AFTER 24 HOURS, INCUBATION TO CONTINUE FOR 4 DAYS. Assessment: 66 year old male with PMHx of COPD (on 3L O2 at home), asthma, DM, CAD, CVA, HTN, HLD, gout, renal insufficiency, chronic lower extremity wounds, osteomyelitis admitted with AMS and lethargy. Plan: 1. Severe sepsis 2/2 MRSA bacteremia - 05/16: NGTD - Vanco stopped due to elevated vanco level - Further abx per ID 2. Chronic diabetic foot ulcer, chronic osteo, MRSA - S/p I&D 05/14 - Daily irrigation per vascular, will eventually need BKA 3. Thrombocytopenia - Resolved - Likely 2/2 severe sepsis vs medication 4. Acute metabolic encephalopathy 2/2 bacteremia - Mental status at baseline 5. Asthma, COPD - No acute exacerbation at this time - Continue Duonebs - Continue Advair 6. CKD - Cr at baseline - Stop fluids 7. DM II - Sugars stable - Levemir 18 units BID - BGM, ISS ACHS 8. HTN - Norvasc 5mg daily - Lasix 20mg daily - Metoprolol xl 25mg day 9. Rhabdo - Improved - Encourage po intake 10. Prophylaxis: - Heparin 5,000u sq q8h - PT daily 11. Dispo - Requires continued inpatient care Visit type - Emergency Visit Emergency Visit: Yes ED Registration Date: 05/11/17 Care time: The patient presented to the Emergency Department on the above date and was hospitalized for further evaluation of their emergent condition. - New Patient This patient is new to me today: No - Critical Care Critical Care patient: No
--- NOTE | 2017-05-17 15:48 | PN ---
Progress Note, Physician History of Present Illness: OOB in chair No complaints No c/o foot pain No fever/ chills - Current Medication List Current Medications: Active Medications Acetaminophen (Tylenol -) 650 mg PO Q4H PRN PRN Reason: FEVER OR PAIN Last Admin: 05/17/17 15:38 Dose: 650 mg Albuterol/Ipratropium (Duoneb -) 1 amp NEB Q4H PRN PRN Reason: SHORTNESS OF BREATH Last Admin: 05/17/17 06:30 Dose: 1 amp Allopurinol (Zyloprim -) 200 mg PO DAILY [facility] Last Admin: 05/17/17 10:34 Dose: 200 mg Amlodipine Besylate (Norvasc -) 5 mg PO DAILY [facility] Last Admin: 05/17/17 10:35 Dose: 5 mg Atorvastatin Calcium (Lipitor -) 20 mg PO HS [facility] Last Admin: 05/16/17 21:29 Dose: 20 mg Clopidogrel Bisulfate (Plavix -) 75 mg PO DAILY [facility] Last Admin: 05/17/17 10:34 Dose: 75 mg Docusate Sodium (Colace -) 300 mg PO HS [facility] Last Admin: 05/16/17 21:34 Dose: Not Given Ferrous Sulfate (Feosol -) 325 mg PO BID [facility] Last Admin: 05/17/17 10:35 Dose: 325 mg Furosemide (Lasix -) 20 mg PO DAILY [facility] Last Admin: 05/17/17 10:34 Dose: 20 mg Gabapentin (Neurontin -) 300 mg PO BID [facility] Last Admin: 05/17/17 10:34 Dose: 300 mg Heparin Sodium (Porcine) (Heparin -) 5,000 unit SQ Q8H-IV [facility] Last Admin: 05/17/17 10:35 Dose: 5,000 unit Insulin Aspart (Novolog Vial Sliding Scale -) 1 vial SQ ACHS [facility] PRN Reason: Protocol Last Admin: 05/17/17 06:11 Dose: Not Given Insulin Detemir (Levemir Vial) 18 units SQ BIDI [facility] Last Admin: 05/17/17 06:13 Dose: Not Given Metoprolol Succinate (Toprol Xl -) 25 mg PO DAILY [facility] Last Admin: 05/17/17 10:35 Dose: 25 mg Oxycodone HCl (Roxicodone -) 5 mg PO Q4H PRN PRN Reason: PAIN Last Admin: 05/17/17 15:38 Dose: 5 mg Pantoprazole Sodium (Protonix -) 40 mg PO DAILY [facility] Last Admin: 05/17/17 10:35 Dose: 40 mg Pramipexole Dihydrochloride (Mirapex -) 0.125 mg PO HS [facility] Last Admin: 05/16/17 21:29 Dose: 0.125 mg Fluticasone/Salmeterol (Advair 100mcg/50mcg -) 1 puff IH BID [facility] Last Admin: 05/17/17 10:37 Dose: 1 puff Tamsulosin HCl (Flomax -) 0.4 mg PO DAILY [facility] Last Admin: 05/17/17 10:35 Dose: 0.4 mg Trazodone HCl (Desyrel -) 50 mg PO HS PRN PRN Reason: INSOMNIA - Objective Vital Signs: Vital Signs Temperature 98.2 F 05/17/17 10:00 Pulse Rate 74 05/17/17 10:00 Respiratory Rate 18 05/17/17 10:00 Blood Pressure 144/73 05/17/17 10:00 O2 Sat by Pulse Oximetry (%) 99 05/16/17 21:00 Constitutional: Yes: No Distress Eyes: Yes: Conjunctiva Clear Cardiovascular: Yes: Regular Rate and Rhythm, S1, S2 Respiratory: Yes: CTA Bilaterally Gastrointestinal: Yes: Normal Bowel Sounds, Soft, Abdomen, Obese. No: Tenderness Extremities: Yes: Other (dressings in place, feet bilaterally) Labs: CBC, BMP 05/17/17 07:44 05/17/17 06:50 INR, PTT INR 1.12 (0.82-1.09) 05/10/17 22:26 Assessment/Plan MRSA bacteremia/ sepsis secondary to foot source Azotemia- improved Thrombocytopenia Hold vancomycin ( elevatd trough ) Repeat random level am
[2017-05-17] MEDS: DOCUSATE SODIUM 100 MG CAPSULE (FP) PO SCH (21:58)
[2017-05-17] MEDS: ATORVASTATIN CA 20 MG TABLET (FP) PO SCH (21:58)
[2017-05-17] MEDS ORDERED: PT OWN MED DRAWER 7, Y5N ONE (21:59)
[2017-05-17] MEDS: PRAMIPEXOLE DIHYDROCHLORIDE 0.125 MG TABLET PO SCH (22:00)
[2017-05-18] MEDS: HEPARIN NA (PORCINE) 5,000 UNITS/ML 1ML VIAL SQ SCH ×3 (01:32→17:06)
[2017-05-18] MEDS: INSULIN DETEMIR 100 UNITS/ML MDV SQ SCH ×2 (06:30→17:02)
[2017-05-18] MEDS: INSULIN SLIDING SCALE (NOVOLOG) 1 VIAL SQ SCH ×4 (06:31→21:54)
--- NOTE | 2017-05-18 10:07 | PN ---
Physical Exam: INFECTIOUS DISEASE SUBJECTIVE: Patient seen and examined. No fevers, no chills, no CP, no SOB. Walked with PT yesterday on heel. OBJECTIVE: Vital Signs Period Temp Pulse Resp BP Sys/Cintron Pulse Ox Last 24 Hr 98 F-98.3 F 65-79 18-20 110-145/65-81 98 GEN: AAOx3, NAD, Lying comfortably. Not confused HEENT: PERRLA, EOMi CV: S1, S2, RRR LUNG: Bibasilar crackles ABD: Distended, NT, hypoactive BS MSK: L foot wrapped tightly s/p debridement, no surrounding erythema or edema Active Medications Generic Name Dose Route Start Last Admin Trade Name Freq PRN Reason Stop Dose Admin Acetaminophen 650 mg 05/12/17 23:07 05/17/17 22:06 Tylenol - PO 650 mg Q4H PRN Administration FEVER OR PAIN Albuterol/Ipratropium 1 amp 05/11/17 04:15 05/17/17 22:05 Duoneb - NEB 1 amp Q4H PRN Administration SHORTNESS OF BREATH Allopurinol 200 mg 05/11/17 10:00 05/17/17 10:34 Zyloprim - PO 200 mg DAILY MISSAEL Administration Amlodipine Besylate 5 mg 05/13/17 10:00 05/17/17 10:35 Norvasc - PO 5 mg DAILY MISSAEL Administration Atorvastatin Calcium 20 mg 05/11/17 22:00 05/17/17 21:58 Lipitor - PO 20 mg HS MISSAEL Administration Clopidogrel Bisulfate 75 mg 05/11/17 10:00 05/17/17 10:34 Plavix - PO 75 mg DAILY MISSAEL Administration Docusate Sodium 300 mg 05/11/17 22:00 05/17/17 21:58 Colace - PO Not Given HS MISSAEL Ferrous Sulfate 325 mg 05/13/17 10:00 05/17/17 21:58 Feosol - PO 325 mg BID MISSAEL Administration Furosemide 20 mg 05/13/17 10:00 05/17/17 10:34 Lasix - PO 20 mg DAILY MISSAEL Administration Gabapentin 300 mg 05/11/17 10:00 05/17/17 21:58 Neurontin - PO 300 mg BID MISSAEL Administration Heparin Sodium (Porcine) 5,000 unit 05/11/17 03:30 05/18/17 01:32 Heparin - SQ 5,000 unit Q8H-IV MISSAEL Administration Insulin Aspart 1 vial 05/11/17 07:00 05/18/17 06:31 Novolog Vial Sliding Scale - SQ Not Given ACHS [facility] Protocol Insulin Detemir 18 units 05/11/17 07:00 05/18/17 06:30 Levemir Vial SQ Not Given BIDI MISSAEL Metoprolol Succinate 25 mg 05/13/17 10:00 05/17/17 10:35 Toprol Xl - PO 25 mg DAILY MISSAEL Administration Oxycodone HCl 5 mg 05/16/17 18:51 05/17/17 22:06 Roxicodone - PO 5 mg Q4H PRN Administration PAIN Pantoprazole Sodium 40 mg 05/11/17 10:00 05/17/17 10:35 Protonix - PO 40 mg DAILY MISSAEL Administration Pramipexole Dihydrochloride 0.125 mg 05/11/17 22:00 05/17/17 22:00 Mirapex - PO 0.125 mg HS MISSAEL Administration Fluticasone/Salmeterol 1 puff 05/11/17 10:00 05/17/17 21:58 Advair 100mcg/50mcg - IH 1 puff BID MISSAEL Administration Tamsulosin HCl 0.4 mg 05/13/17 10:00 05/17/17 10:35 Flomax - PO 0.4 mg DAILY MISSAEL Administration Trazodone HCl 50 mg 05/11/17 04:22 Desyrel - PO HS PRN INSOMNIA CBC, BMP 05/17/17 07:44 05/17/17 06:50 Microbiology 05/14/17 13:00 Foot - Left Plantar Gram Stain - Final 05/14/17 13:00 Foot - Left Plantar Wound Culture - Final Mr S Aureus 05/14/17 09:08 Blood - Peripheral Venous Blood Culture - Final Mr S Aureus 05/16/17 06:00 Blood - Peripheral Venous Blood Culture - Preliminary NO GROWTH OBTAINED AFTER 48 HOURS, INCUBATION TO CONTINUE FOR 3 DAYS. 05/16/17 06:00 Blood - Peripheral Venous Blood Culture - Preliminary NO GROWTH OBTAINED AFTER 48 HOURS, INCUBATION TO CONTINUE FOR 3 DAYS. ASSESSMENT/PLAN: Pt is a 66yo with PMHx of DM2 and recent history of recurrent MRSA bacteremia and chronic osteomyelitis of R foot (treated in Mar/Apr with 6 weeks of IV abx) , who was admitted with AMS, found to have likely MRSA bacteremia # MRSA Bacteremia -secondary to L medial foot abscess - S/p abscess drainage on 05/14, wound cx +MRSA - Cultures drawn after procedure are negative so far, will get new set - No vancomycin today due to elevated random level, get level in AM - If bacteremia persists, consider changing antibiotics to Dapto + Ceftaroline combo + consider DIMAS To discuss w/ Dr Domínguez. Will follow Keith Barboza MD - PGY1 Infectious Disease Visit type - Emergency Visit Emergency Visit: No - New Patient This patient is new to me today: No - Critical Care Critical Care patient: No - Discharge Referral Referred to [facility] Med P.C.: No
[2017-05-18] MEDS: ALLOPURINOL 100 MG TABLET (FP) PO SCH (10:14)
[2017-05-18] MEDS: FUROSEMIDE 20 MG TABLET (FP) PO SCH (10:14)
[2017-05-18] MEDS: METOPROLOL SUCCINATE 25 MG TAB.SR.24H (FP) PO SCH (10:14)
[2017-05-18] MEDS: PANTOPRAZOLE 40 MG TABLET (FP) PO SCH (10:14)
[2017-05-18] MEDS: oxyCODONE HCL 5 MG TABLET PO PRN ×2 (10:14→21:59)
[2017-05-18] MEDS: GABAPENTIN 300 MG CAPSULE (FP) PO SCH ×2 (10:15→21:53)
[2017-05-18] MEDS: FERROUS SO4 325 MG TABLET (FP) PO SCH ×2 (10:15→21:53)
[2017-05-18] MEDS: ACETAMINOPHEN 325 MG TABLET (FP) PO PRN ×2 (10:15→22:02)
[2017-05-18] MEDS: TAMSULOSIN HCL 0.4 MG CAP.ER.24H (FP) PO SCH (10:15)
[2017-05-18] MEDS: CLOPIDOGREL BISULFATE 75 MG TABLET (FP) PO SCH (10:15)
[2017-05-18] MEDS: FLUTICASONE/SALMETEROL 100 MCG/50 MCG DISKUS IH SCH ×2 (10:16→21:53)
[2017-05-18] MEDS: amLODIPine BESYLATE 5 MG TABLET (FP) PO SCH (10:17)
[2017-05-18] MEDS ORDERED: INSULIN (NOVOLOG) ASPART 100 UNITS/ML 10ML VIAL ONE (12:38)
--- NOTE | 2017-05-18 12:43 | PN ---
Teaching Attending Note Name of Resident: Keith Barboza ATTENDING PHYSICIAN STATEMENT I saw and evaluated the patient. I reviewed the resident's note and discussed the case with the resident. I agree with the resident's findings and plan as documented. SUBJECTIVE: No c/o foot pain No fever/ chills OBJECTIVE: Cor S1S2 Lungs clear Abdomen soft, non tender dressing in place, feet bilaterally ASSESSMENT AND PLAN: MRSA bacteremia S/P I&D foot abscess Vanco level noted Hold vanco Repeat random level and blood c/s am
--- NOTE | 2017-05-18 12:43 | PN ---
Physical Exam: SUBJECTIVE: Patient seen and examined. He as no acute complaints, he wishes to go home. Denies sob, or cough. OBJECTIVE: Vital Signs Period Temp Pulse Resp BP Sys/Cintron Pulse Ox Last 24 Hr 98 F-98.3 F 65-79 18-20 110-145/65-81 98 PE Neuro: alert, awake, cn 2-12 intact Pulm: CTAB +NC CV: s1 s2 rrr no mrg Abd: s nt nd +bs Ext: bilateral feet dressing KAMINI, + 1 edema R>L, venous skin changes, non tender , no warm Laboratory Results - last 24 hr 05/17/17 05/17/17 05/18/17 17:41 21:54 06:00 POC Glucometer 248 280 Random Vancomycin 26.404 05/18/17 06:27 POC Glucometer 73 Random Vancomycin Active Medications Generic Name Dose Route Start Last Admin Trade Name Freq PRN Reason Stop Dose Admin Acetaminophen 650 mg 05/12/17 23:07 05/18/17 10:15 Tylenol - PO 650 mg Q4H PRN Administration FEVER OR PAIN Albuterol/Ipratropium 1 amp 05/11/17 04:15 05/17/17 22:05 Duoneb - NEB 1 amp Q4H PRN Administration SHORTNESS OF BREATH Allopurinol 200 mg 05/11/17 10:00 05/18/17 10:14 Zyloprim - PO 200 mg DAILY MISSAEL Administration Amlodipine Besylate 5 mg 05/13/17 10:00 05/18/17 10:17 Norvasc - PO 5 mg DAILY MISSAEL Administration Atorvastatin Calcium 20 mg 05/11/17 22:00 05/17/17 21:58 Lipitor - PO 20 mg HS MISSAEL Administration Clopidogrel Bisulfate 75 mg 05/11/17 10:00 05/18/17 10:15 Plavix - PO 75 mg DAILY MISSAEL Administration Docusate Sodium 300 mg 05/11/17 22:00 05/17/17 21:58 Colace - PO Not Given HS MISSAEL Ferrous Sulfate 325 mg 05/13/17 10:00 05/18/17 10:15 Feosol - PO 325 mg BID MISSAEL Administration Furosemide 20 mg 05/13/17 10:00 05/18/17 10:14 Lasix - PO 20 mg DAILY MISSAEL Administration Gabapentin 300 mg 05/11/17 10:00 05/18/17 10:15 Neurontin - PO 300 mg BID MISSAEL Administration Heparin Sodium (Porcine) 5,000 unit 05/11/17 03:30 05/18/17 10:16 Heparin - SQ 5,000 unit Q8H-IV MISSAEL Administration Insulin Aspart 1 vial 05/11/17 07:00 05/18/17 06:31 Novolog Vial Sliding Scale - SQ Not Given ACHS [facility] Protocol Insulin Detemir 18 units 05/11/17 07:00 05/18/17 06:30 Levemir Vial SQ Not Given BIDI MISSAEL Metoprolol Succinate 25 mg 05/13/17 10:00 05/18/17 10:14 Toprol Xl - PO 25 mg DAILY MISSAEL Administration Oxycodone HCl 5 mg 05/16/17 18:51 05/18/17 10:14 Roxicodone - PO 5 mg Q4H PRN Administration PAIN Pantoprazole Sodium 40 mg 05/11/17 10:00 05/18/17 10:14 Protonix - PO 40 mg DAILY MISSAEL Administration Pramipexole Dihydrochloride 0.125 mg 05/11/17 22:00 05/17/17 22:00 Mirapex - PO 0.125 mg HS MISSAEL Administration Fluticasone/Salmeterol 1 puff 05/11/17 10:00 05/18/17 10:16 Advair 100mcg/50mcg - IH 1 puff BID MISSAEL Administration Tamsulosin HCl 0.4 mg 05/13/17 10:00 05/18/17 10:15 Flomax - PO 0.4 mg DAILY MISSAEL Administration Trazodone HCl 50 mg 05/11/17 04:22 Desyrel - PO HS PRN INSOMNIA Assessment: 66 year old male with PMHx of COPD (on 3L O2 at home), asthma, DM, CAD, CVA, HTN, HLD, gout, renal insufficiency, chronic lower extremity wounds, osteomyelitis admitted with AMS and lethargy. Plan: 1. Severe sepsis 2/2 MRSA bacteremia - 05/16: NGTD - Vanco level elevated - Further abx per ID 2. Chronic diabetic foot ulcer, chronic osteo, MRSA - S/p I&D 05/14 - Daily irrigation per vascular, will eventually need BKA - Ambulate on heels 3. Thrombocytopenia - Resolved - Likely 2/2 severe sepsis vs medication 4. Acute metabolic encephalopathy 2/2 bacteremia - Mental status at baseline 5. Asthma, COPD - No acute exacerbation at this time - Continue Duonebs - Continue Advair 6. CKD - Cr at baseline 7. DM II - Sugars stable - Levemir 18 units BID - BGM, ISS ACHS 8. HTN - Norvasc 5mg daily - Lasix 20mg daily - Metoprolol xl 25mg day 9. Rhabdo - Improved - Encourage po intake 10. Prophylaxis: - Heparin 5,000u sq q8h - PT daily 11. Dispo - Requires continued inpatient care Visit type - Emergency Visit Emergency Visit: Yes ED Registration Date: 05/11/17 Care time: The patient presented to the Emergency Department on the above date and was hospitalized for further evaluation of their emergent condition. - New Patient This patient is new to me today: No - Critical Care Critical Care patient: No
[2017-05-18] MEDS ORDERED: PT OWN MED DRAWER 7, Y5N ONE (21:44)
[2017-05-18] MEDS: DOCUSATE SODIUM 100 MG CAPSULE (FP) PO SCH (21:53)
[2017-05-18] MEDS: PRAMIPEXOLE DIHYDROCHLORIDE 0.125 MG TABLET PO SCH (21:53)
[2017-05-18] MEDS: ATORVASTATIN CA 20 MG TABLET (FP) PO SCH (21:53)
--- NOTE | 2017-05-18 22:06 | PN ---
Progress Note (short form) - Note Progress Note: No complaints. Right foot wound clean, granulating base. Left foot wound with seropurulent drainage. Unclear if left foot can be saved if there is extensive bone destruction. Will need to review with Dr. Domínguez. Orthopedic opinion may be helpful.
[2017-05-19] MEDS: HEPARIN NA (PORCINE) 5,000 UNITS/ML 1ML VIAL SQ SCH ×3 (02:07→17:19)
[2017-05-19] MEDS: INSULIN SLIDING SCALE (NOVOLOG) 1 VIAL SQ SCH ×3 (06:25→16:51)
[2017-05-19] MEDS: INSULIN DETEMIR 100 UNITS/ML MDV SQ SCH ×2 (06:31→17:23)
[2017-05-19] MEDS ORDERED: PT OWN MED DRAWER 7, Y5N ONE ×3 (06:32→10:33)
[2017-05-19] MEDS ORDERED: INSULIN DETEMIR 100 UNITS/ML MDV SQ ONE ×2 (06:33→18:06)
[2017-05-19] MEDS ORDERED: INSULIN (NOVOLOG) ASPART 100 UNITS/ML 10ML VIAL ONE ×2 (06:34→11:34)
--- NOTE | 2017-05-19 08:43 | PN ---
Physical Exam: SUBJECTIVE: Patient seen and examined. No fevers, chills, CP, SOB OBJECTIVE: Vital Signs Period Temp Pulse Resp BP Sys/Cintron Pulse Ox Last 24 Hr 98 F-98.6 F 66-98 16-20 95-146/62-88 98-98 GEN: AAOx3, NAD, Lying comfortably. Not confused HEENT: PERRLA, EOMi CV: S1, S2, RRR LUNG: Bibasilar crackles ABD: Distended, NT, hypoactive BS MSK: L foot unwrapped, packing inside post-op site, no surrounding edema, nontender Active Medications Generic Name Dose Route Start Last Admin Trade Name Freq PRN Reason Stop Dose Admin Acetaminophen 650 mg 05/12/17 23:07 05/18/17 22:02 Tylenol - PO 650 mg Q4H PRN Administration FEVER OR PAIN Albuterol/Ipratropium 1 amp 05/11/17 04:15 05/17/17 22:05 Duoneb - NEB 1 amp Q4H PRN Administration SHORTNESS OF BREATH Allopurinol 200 mg 05/11/17 10:00 05/18/17 10:14 Zyloprim - PO 200 mg DAILY MISSAEL Administration Amlodipine Besylate 5 mg 05/13/17 10:00 05/18/17 10:17 Norvasc - PO 5 mg DAILY MISSAEL Administration Atorvastatin Calcium 20 mg 05/11/17 22:00 05/18/17 21:53 Lipitor - PO 20 mg HS MISSAEL Administration Clopidogrel Bisulfate 75 mg 05/11/17 10:00 05/18/17 10:15 Plavix - PO 75 mg DAILY MISSAEL Administration Docusate Sodium 300 mg 05/11/17 22:00 05/18/17 21:53 Colace - PO Not Given HS MISSAEL Ferrous Sulfate 325 mg 05/13/17 10:00 05/18/17 21:53 Feosol - PO 325 mg BID MISSAEL Administration Furosemide 20 mg 05/13/17 10:00 05/18/17 10:14 Lasix - PO 20 mg DAILY MISSAEL Administration Gabapentin 300 mg 05/11/17 10:00 05/18/17 21:53 Neurontin - PO 300 mg BID MISSAEL Administration Heparin Sodium (Porcine) 5,000 unit 05/11/17 03:30 05/19/17 02:07 Heparin - SQ 5,000 unit Q8H-IV MISSAEL Administration Insulin Aspart 1 vial 05/11/17 07:00 05/19/17 06:25 Novolog Vial Sliding Scale - SQ Not Given [facility] Protocol Insulin Detemir 18 units 05/11/17 07:00 05/19/17 06:31 Levemir Vial SQ 18 units BIDI MISSAEL Administration Metoprolol Succinate 25 mg 05/13/17 10:00 05/18/17 10:14 Toprol Xl - PO 25 mg DAILY MISSAEL Administration Oxycodone HCl 5 mg 05/16/17 18:51 05/18/17 21:59 Roxicodone - PO 5 mg Q4H PRN Administration PAIN Pantoprazole Sodium 40 mg 05/11/17 10:00 05/18/17 10:14 Protonix - PO 40 mg DAILY MISSAEL Administration Pramipexole Dihydrochloride 0.125 mg 05/11/17 22:00 05/18/17 21:53 Mirapex - PO 0.125 mg HS MISSAEL Administration Fluticasone/Salmeterol 1 puff 05/11/17 10:00 05/18/17 21:53 Advair 100mcg/50mcg - IH 1 puff BID MISSAEL Administration Tamsulosin HCl 0.4 mg 05/13/17 10:00 05/18/17 10:15 Flomax - PO 0.4 mg DAILY MISSAEL Administration Trazodone HCl 50 mg 05/11/17 04:22 Desyrel - PO HS PRN INSOMNIA Microbiology 05/14/17 13:00 Foot - Left Plantar Gram Stain - Final 05/14/17 13:00 Foot - Left Plantar Wound Culture - Final Mr S Aureus 05/16/17 06:00 Blood - Peripheral Venous Blood Culture - Preliminary NO GROWTH OBTAINED AFTER 72 HOURS, INCUBATION TO CONTINUE FOR 2 DAYS. 05/16/17 06:00 Blood - Peripheral Venous Blood Culture - Preliminary NO GROWTH OBTAINED AFTER 72 HOURS, INCUBATION TO CONTINUE FOR 2 DAYS. ASSESSMENT/PLAN: Pt is a 66yo with PMHx of DM2 and recent history of recurrent MRSA bacteremia and chronic osteomyelitis of R foot (treated in Mar/Apr with 6 weeks of IV abx) , who was admitted with AMS, found to have likely MRSA bacteremia # L foot abscess +MRSA - S/p abscess drainage on 05/14 - Cultures drawn after procedure are negative so far, new bcx pending - Pt is adamantly against amputation, thus will need 4 weeks of Vanco + long- term suppressive abx for Doxy + Rifampin - New CRP (last one was 18.0 on 05/12) Discussed w/ Dr Benitez. Will follow. Keith Barboza MD - PGY1 Infectious Disease Visit type - Emergency Visit Emergency Visit: No - New Patient This patient is new to me today: No - Critical Care Critical Care patient: No - Discharge Referral Referred to [facility] No
[2017-05-19 08:44] LABS: BASOPHIL 0.8 % (0-2.0); MCH 20.7 pg (25.7-33.7); MCHC 30.4 g/dl (32.0-35.9); MEAN CELL VOLUME 68.1 fl (80-96); MEAN PLT VOLUME 9.5 fl (7.5-11.1); NEUTROPHILS 69.1 % (42.8-82.8); PLATELET COUNT 238 K/MM3 (134-434); RDW 19.3 % (11.9-15.9); WHITE BLOOD COUNT 6.8 K/mm3 (4.0-10.0)
--- NOTE | 2017-05-19 09:24 | CON.ORTH ---
Consult Reason for Consultation:: b/l LE chronic osteo - Past Medical History CREATIVE PERFUMER: Yes: CVA Cardio/Vascular: Yes: HTN, Hyperlipdemia, Other (PAD) Pulmonary: Yes: Asthma, COPD, O2 Dependent, Pulmonary Fibrosis, Sleep Apnea Hepatobiliary: Yes: Cholecystitis Renal/: Yes: Renal Inusuff Musculoskeletal: Yes: Other (chronic foot ulcers) Endocrine: Yes: Diabetes Mellitus - Past Surgical History Past Surgical History: Yes: Amputation (second toe left foot), Appendectomy, Bypass (leg), Carotid Endarterectomy (right), Cholecystectomy, Tonsillectomy - Alcohol/Substance Use Hx Alcohol Use: No Number of Drinks Daily: 2 (beer, cr on weekend) History of Substance Use: reports: None - Smoking History Smoking history: Unknown if ever smoked Have you smoked in the past 12 months: No Aproximately how many cigarettes per day: 10 If you are a former smoker, when did you quit?: May 2014 - Social History Usual Living Arrangement: Alone ADL: Independent (uses a walker and wheelchair, in process of getting a scooter) 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[employer] ,[employer]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 History of Recent Travel: No Home Medications - Allergies Allergies/Adverse Reactions: Allergies Allergy/AdvReac Type Severity Reaction Status Date / Time No Known Drug Allergies Allergy Verified 05/10/17 21:29 - Home Medications Home Medications: Ambulatory Orders Allopurinol 300 mg PO DAILY 05/11/16 Atorvastatin Ca [Lipitor] 20 mg PO DAILY 05/11/16 Linagliptin [Tradjenta] 5 mg PO DAILY 05/11/16 Nystatin Powder [Nystop Powder -] 60 gm TP DAILY 05/11/16 Peg 400/Hypromellose/Glycerin [Artificial Tears Drops] 1 drop OU DAILY 05/11/16 Tamsulosin HCl [Flomax -] 0.4 mg PO DAILY 05/11/16 Trazodone HCl [Desyrel -] 50 mg PO HS 05/11/16 Losartan Potassium [Cozaar -] 25 mg PO DAILY tablet 07/19/16 Metoprolol Succinate [Toprol XL -] 25 mg PO DAILY tab.sr.24h 07/19/16 Oxycodone HCl [Roxicodone -] 5 mg PO Q8H PRN #30 tablet MDD 3 07/19/16 Memantine HCl [Namenda Xr] 7 mg PO DAILY 07/22/16 Aclidinium [place] [Tudorza -] 1 puff IH BID inhaler 10/29/16 Amlodipine Besylate [Norvasc -] 5 mg PO DAILY tablet 10/29/16 Clopidogrel Bisulfate [Plavix -] 75 mg PO DAILY tablet 10/29/16 Salmeterol/Fluticasone [Advair 100Mcg/50Mcg -] 1 puff IH BID inhaler 10/29/16 Ferrous Sulfate 325 mg PO BID 01/25/17 Gabapentin 300 mg PO TID 01/25/17 Oxybutynin Chloride [Ditropan Xl] 5 mg PO DAILY 01/25/17 Pantoprazole Sodium [Protonix] 40 mg PO DAILY 01/25/17 Pramipexole Dihydrochloride [Mirapex -] 0.5 mg PO HS 01/25/17 Furosemide [Lasix] 20 mg PO DAILY #0 mg 03/08/17 Insulin (Levemir) [Levemir Flexpen -] 22 units SQ HS #1 units 03/08/17 Sitagliptin Phosphate [Januvia -] 50 mg PO DAILY@0700 tablet 03/08/17 Albuterol 2.5/Ipratropium 0.5 [Duoneb -] 1 neb NEB Q4H PRN 05/11/17 Ergocalciferol (Vitamin D2) [Vitamin D2] 50,000 unit PO WEEKLY 05/11/17 Pregabalin [Lyrica -] 150 mg PO BID 05/11/17 Family Disease History - Family Disease History Family Disease History: Diabetes: Mother (htn), Other: Father (htn), Mother Physical Exam for Ortho Vital Signs: Vital Signs Temperature 98.6 F 05/19/17 06:20 Pulse Rate 98 H 05/19/17 06:20 Respiratory Rate 20 05/19/17 06:20 Blood Pressure 140/71 05/19/17 06:20 O2 Sat by Pulse Oximetry (%) 98 05/18/17 21:00 Wound/Incision: Yes: Dressing Dry and Intact Labs: CBC, BMP 05/19/17 06:00 INR, PTT INR 1.12 (0.82-1.09) 05/10/17 22:26 - Lower Extremity Foot: Yes: Left, Right Imaging - Results X-ray: Report Reviewed, Image Reviewed Assessment/Plan 66M w/ PMH HTN, DM, chronic wound infection with a history of osteomyelitits. Has been treated in the wound care clinic and now s/p debridement and abx. a/p b/l chronic osteomyelitis with wound infection will require amputation if conservative tx fails Dr. Sanders is following and will defer to him for definitive tx Nothing to do from ortho pov d/w Dr. Davis
[2017-05-19 09:28] LABS: ANION GAP 6 (8-16); CALCIUM 8.4 mg/dL (8.5-10.1); CO2 30 mmol/L (21-32); CREATININE 1.3 mg/dL (0.7-1.3); GLUCOSE,RANDOM 109 mg/dL (74-106)
[2017-05-19] MEDS: TAMSULOSIN HCL 0.4 MG CAP.ER.24H (FP) PO SCH (10:17)
[2017-05-19] MEDS: FERROUS SO4 325 MG TABLET (FP) PO SCH (10:17)
[2017-05-19] MEDS: PANTOPRAZOLE 40 MG TABLET (FP) PO SCH (10:18)
[2017-05-19] MEDS: FUROSEMIDE 20 MG TABLET (FP) PO SCH (10:18)
[2017-05-19] MEDS: GABAPENTIN 300 MG CAPSULE (FP) PO SCH (10:18)
[2017-05-19] MEDS: CLOPIDOGREL BISULFATE 75 MG TABLET (FP) PO SCH (10:18)
[2017-05-19] MEDS: amLODIPine BESYLATE 5 MG TABLET (FP) PO SCH (10:18)
[2017-05-19] MEDS: ALLOPURINOL 100 MG TABLET (FP) PO SCH (10:19)
[2017-05-19] MEDS: METOPROLOL SUCCINATE 25 MG TAB.SR.24H (FP) PO SCH (10:19)
[2017-05-19] MEDS: FLUTICASONE/SALMETEROL 100 MCG/50 MCG DISKUS IH SCH (10:35)
[2017-05-19] MEDS: oxyCODONE HCL 5 MG TABLET PO PRN (10:36)
[2017-05-19] MEDS: ACETAMINOPHEN 325 MG TABLET (FP) PO PRN (10:37)
--- NOTE | 2017-05-19 10:41 | PN ---
Teaching Attending Note Name of Resident: Keith Barboza ATTENDING PHYSICIAN STATEMENT I saw and evaluated the patient. I reviewed the resident's note and discussed the case with the resident. I agree with the resident's findings and plan as documented. SUBJECTIVE:Continues on Vancomycin Preceeding notes seen OBJECTIVE: ASSESSMENT AND PLAN: Selected Entries 05/19/17 06:20 Temperature 98.6 F Pulse Rate 98 H Respiratory 20 Rate Blood Pressure 140/71 Left foot packing no cellulitis Laboratory Tests 05/12/17 05/19/17 06:25 06:00 WBC 6.8 Hgb 9.1 L Hct 30.1 L Plt Count 238 D C-Reactive Protein 18.0 H D Microbiology 05/16/17 06:00 Blood - Peripheral Venous Blood Culture - Preliminary NO GROWTH OBTAINED AFTER 72 HOURS, INCUBATION TO CONTINUE FOR 2 DAYS. 05/16/17 06:00 Blood - Peripheral Venous Blood Culture - Preliminary NO GROWTH OBTAINED AFTER 72 HOURS, INCUBATION TO CONTINUE FOR 2 DAYS. Laboratory Tests 05/19/17 06:00 Random Vancomycin 17.460 Assessment Chronic osteomyelitis and I suspect ultimately he will require amputuation. He does not want surgery Plan 4 weeks of Vancomycin for bacteremia ! Osteo left incurable Obtain CRP comparison FDC oral surpressive antibiotics for osteo treatment Doxycycline and Rifampin Emmanuel BANEGAS
--- NOTE | 2017-05-19 11:20 | PN ---
Progress Note (short form) - Note Progress Note: Subjective: The patient was seen and examined at the bedside, he is refusing amputation and SNF. He would like to be discharged home with PICC line for duration of antibiotic therapy Current Medications Generic Name Dose Route Start Last Admin Trade Name Freq PRN Reason Stop Dose Admin Acetaminophen 650 mg 05/12/17 23:07 05/19/17 10:37 Tylenol - PO 650 mg Q4H PRN Administration FEVER OR PAIN Albuterol/Ipratropium 1 amp 05/11/17 04:15 05/17/17 22:05 Duoneb - NEB 1 amp Q4H PRN Administration SHORTNESS OF BREATH Allopurinol 200 mg 05/11/17 10:00 05/19/17 10:19 Zyloprim - PO 200 mg DAILY MISSAEL Administration Amlodipine Besylate 5 mg 05/13/17 10:00 05/19/17 10:18 Norvasc - PO 5 mg DAILY MISSAEL Administration Atorvastatin Calcium 20 mg 05/11/17 22:00 05/18/17 21:53 Lipitor - PO 20 mg HS MISSAEL Administration Clopidogrel Bisulfate 75 mg 05/11/17 10:00 05/19/17 10:18 Plavix - PO 75 mg DAILY MISSAEL Administration Docusate Sodium 300 mg 05/11/17 22:00 05/18/17 21:53 Colace - PO Not Given HS MISSAEL Ferrous Sulfate 325 mg 05/13/17 10:00 05/19/17 10:17 Feosol - PO 325 mg BID MISSAEL Administration Furosemide 20 mg 05/13/17 10:00 05/19/17 10:18 Lasix - PO 20 mg DAILY MISSAEL Administration Gabapentin 300 mg 05/11/17 10:00 05/19/17 10:18 Neurontin - PO 300 mg BID MISSAEL Administration Heparin Sodium (Porcine) 5,000 unit 05/11/17 03:30 05/19/17 10:19 Heparin - SQ 5,000 unit Q8H-IV MISSAEL Administration Vancomycin HCl 1,500 mg/ 500 mls @ 250 mls/hr 05/20/17 10:00 Dextrose IVPB DAILY [facility] Protocol Insulin Aspart 1 vial 05/11/17 07:00 05/19/17 06:25 Novolog Vial Sliding Scale - SQ Not Given ACHS MISSAEL Protocol Insulin Detemir 18 units 05/11/17 07:00 05/19/17 06:31 Levemir Vial SQ 18 units BIDI MISSAEL Administration Metoprolol Succinate 25 mg 05/13/17 10:00 05/19/17 10:19 Toprol Xl - PO 25 mg DAILY MISSAEL Administration Oxycodone HCl 5 mg 05/16/17 18:51 05/19/17 10:36 Roxicodone - PO 5 mg Q4H PRN Administration PAIN Pantoprazole Sodium 40 mg 05/11/17 10:00 05/19/17 10:18 Protonix - PO 40 mg DAILY MISSAEL Administration Pramipexole Dihydrochloride 0.125 mg 05/11/17 22:00 05/18/17 21:53 Mirapex - PO 0.125 mg HS MISSAEL Administration Fluticasone/Salmeterol 1 puff 05/11/17 10:00 05/19/17 10:35 Advair 100mcg/50mcg - IH 1 puff BID MISSAEL Administration Tamsulosin HCl 0.4 mg 05/13/17 10:00 05/19/17 10:17 Flomax - PO 0.4 mg DAILY MISSAEL Administration Trazodone HCl 50 mg 05/11/17 04:22 Desyrel - PO HS PRN INSOMNIA Objective: Vital Signs Period Temp Pulse Resp BP Sys/Cintron Pulse Ox Last 24 Hr 98 F-98.6 F 66-98 18-20 95-140/62-72 98 Physical Exam: General: NAD, A&Ox3 Lungs: CTA bilaterally Heart: RRR, S1S2 Abd: Soft, non-tender, non-distended. Normoactive bowel sounds Ext: B/l foot dressing, c/d/i CBCD WBC 6.8 K/mm3 (4.0-10.0) 05/19/17 06:00 RBC 4.42 M/mm3 (4.00-5.60) 05/19/17 06:00 Hgb 9.1 GM/dL (11.7-16.9) L 05/19/17 06:00 Hct 30.1 % (35.4-49) L 05/19/17 06:00 MCV 68.1 fl (80-96) L 05/19/17 06:00 MCHC 30.4 g/dl (32.0-35.9) L 05/19/17 06:00 RDW 19.3 % (11.9-15.9) H 05/19/17 06:00 Plt Count 238 K/MM3 (134-434) D 05/19/17 06:00 MPV 9.5 fl (7.5-11.1) 05/19/17 06:00 CMP Sodium 139 mmol/L (136-145) 05/19/17 06:00 Potassium 4.0 mmol/L (3.5-5.1) 05/19/17 06:00 Chloride 103 mmol/L (98-107) 05/19/17 06:00 Carbon Dioxide 30 mmol/L (21-32) 05/19/17 06:00 Anion Gap 6 (8-16) L 05/19/17 06:00 BUN 15 mg/dL (7-18) 05/19/17 06:00 Creatinine 1.3 mg/dL (0.7-1.3) 05/19/17 06:00 Creat Clearance w eGFR 43.46 (>60) 05/13/17 06:30 Random Glucose 109 mg/dL (74-106) H D 05/19/17 06:00 Calcium 8.4 mg/dL (8.5-10.1) L 05/19/17 06:00 Total Bilirubin 0.4 mg/dL (0.2-1.0) 05/13/17 06:30 AST 30 U/L (15-37) 05/13/17 06:30 ALT 19 U/L (12-78) 05/13/17 06:30 Alkaline Phosphatase 95 U/L (45-117) 05/13/17 06:30 Total Protein 6.2 g/dl (6.4-8.2) L 05/13/17 06:30 Albumin 2.5 g/dl (3.4-5.0) L 05/13/17 06:30 CARDIAC ENZYMES Creatine Kinase 493 IU/L (39-308) H 05/14/17 07:00 Troponin I 0.02 ng/ml (0.00-0.05) 05/10/17 22:26 Microbiology 05/16/17 06:00 Blood - Peripheral Venous Blood Culture - Preliminary NO GROWTH OBTAINED AFTER 72 HOURS, INCUBATION TO CONTINUE FOR 2 DAYS. 05/16/17 06:00 Blood - Peripheral Venous Blood Culture - Preliminary NO GROWTH OBTAINED AFTER 72 HOURS, INCUBATION TO CONTINUE FOR 2 DAYS. 05/14/17 09:08 Blood - Peripheral Venous Blood Culture - Final S Aureus 05/14/17 13:00 Foot - Left Plantar Gram Stain - Final 05/14/17 13:00 Foot - Left Plantar Wound Culture - Final Mr S Aureus 05/14/17 09:08 Blood - Peripheral Venous Blood Culture - Final Mr S Aureus 05/12/17 09:30 Blood - Peripheral Venous Blood Culture - Final NO GROWTH AFTER 5 DAYS INCUBATION 05/10/17 22:20 Blood - Peripheral Venous Blood Culture - Final Mr S Aureus 05/12/17 09:35 Blood - Peripheral Venous Blood Culture - Final Presumptive Mrsa (Pbp2a Pos) 05/10/17 22:20 Blood - Peripheral Venous Blood Culture - Final Mr S Aureus 05/12/17 12:15 Urine - Urine Clean Catch Urine Culture - Final NO GROWTH OBTAINED 05/11/17 02:53 Urine - Urine Clean Catch Urine Culture - Final NO GROWTH OBTAINED 05/11/17 03:00 Nasopharyngeal Swab Influenza Types A,B Antigen (KATHRYN) - Final 05/11/17 03:00 Nasopharyngeal Swab - Final Assessment: This is a 66 year old male with PMHx of COPD (on 3L O2 at home), asthma, DM, CAD, CVA, HTN, hyperlipidemia, gout, renal insufficiency, chronic lower extremity wounds, osteomyelitis who presented to the ED with AMS and lethargy. Plan: 1) ID: Severe sepsis 2/2 MRSA bactermia - Afebrile - Discussed with Dr. Benitez, for discharge on Vancomycin 1,500mg IVPB daily followed by suppression therapy with rifampin and doxycycline - ID discussed with vascular for possible I&D - Appreciate ID consult 2) Vascular: Chronic diabetic foot ulcer, chronic osteo - S/p I&D 05/14 - Patient refusing amputation - Appreciate ortho consult - Appreciate vascular consult 3) Heme: Thrombocytopenia - Resolved 4) Neuro: Acute metabolic encephalopathy 2/2 bacteremia - Mental status back to baseline: A&Ox3 5) Pulmonary: Asthma, COPD - No acute exacerbation at this time - Continue O2 via NC as needed - Continue Duonebs - Continue Advair 6) Renal: CKD - Cr at baseline - Continue to trend 7) Endocrine: DM - Lebvemir 18u sq bid - BGM ACHS - ISS ACHS 8) Cardiology: HTN - Norvasc 5mg daily - Lasix 20mg daily - Metoprolol xl 25mg day 9) MSK: Rhabdo - Improved - Encourage po intake 10) F/E/N: - Monitor electrolytes - Diabetic, low sodium diet 11) Prophylaxis: - Heparin 5,000u sq q8h 12) Dispo: - Requires continued inpatient care CODE STATUS: FULL CODE Visit type - Emergency Visit Emergency Visit: Yes ED Registration Date: 05/11/17 Care time: The patient presented to the Emergency Department on the above date and was hospitalized for further evaluation of their emergent condition. - New Patient This patient is new to me today: No - Critical Care Critical Care patient: No
--- NOTE | 2017-05-19 12:53 | DS ---
Physical Examination Vital Signs: Vital Signs Temperature 98.4 F 05/19/17 08:20 Pulse Rate 76 05/19/17 08:20 Respiratory Rate 18 05/19/17 08:20 Blood Pressure 155/86 05/19/17 08:20 O2 Sat by Pulse Oximetry (%) 98 05/18/17 21:00 Labs: CBC, BMP 05/19/17 06:00 05/19/17 06:00 Discharge Summary Reason For Visit: SEPSIS HYPOXEMIA COPD EXCERBATION Current Active Problems JESÚS (acute kidney injury) (Acute) COPD exacerbation (Acute) Osteomyelitis (Acute) Renal insufficiency (Acute) Sepsis (Acute) CKD (chronic kidney disease) (Chronic) COPD (chronic obstructive pulmonary disease) (Chronic) Coronary artery disease (Chronic) Diabetes mellitus type 2 with peripheral artery disease (Chronic) Hypertension (Chronic) Hypoxemia (Chronic) Iron deficiency anemia (Chronic) Peripheral artery disease (Chronic) Tobacco use disorder (Chronic) Condition: Stable - Instructions Diet, Activity, Other Instructions: Please return to the ED with new, persistent, or worsening symptoms. Please follow-up with providers as indicated. Please have you CRP, ESR, and vanco level checked weekly. Referrals: Edvin Benitez MD [Staff Physician] - (Please follow-up with infectious disease within 1 week for further mangement of your outpaitent antibiotics.) Jay Sanders MD [Staff Physician] - (Please follow-up with Dr. Sanders for wound care in 2-3 days) Guevara Turner MD [Primary Care Provider] - 1 Week Disposition: VNS/HOME HEALTH CARE - Home Medications Comprehensive Discharge Medication List: Ambulatory Orders Atorvastatin Ca [Lipitor] 20 mg PO DAILY 05/11/16 Nystatin Powder [Nystop Powder -] 60 gm TP DAILY 05/11/16 Peg 400/Hypromellose/Glycerin [Artificial Tears Drops] 1 drop OU DAILY 05/11/16 Tamsulosin HCl [Flomax -] 0.4 mg PO DAILY 05/11/16 Trazodone HCl [Desyrel -] 50 mg PO HS 05/11/16 Losartan Potassium [Cozaar -] 25 mg PO DAILY tablet 07/19/16 Metoprolol Succinate [Toprol XL -] 25 mg PO DAILY tab.sr.24h 07/19/16 Oxycodone HCl [Roxicodone -] 5 mg PO Q8H PRN #30 tablet MDD 3 07/19/16 Memantine HCl [Namenda Xr] 7 mg PO DAILY 07/22/16 Aclidinium [place] [Tudorza -] 1 puff IH BID inhaler 10/29/16 Amlodipine Besylate [Norvasc -] 5 mg PO DAILY tablet 10/29/16 Clopidogrel Bisulfate [Plavix -] 75 mg PO DAILY tablet 10/29/16 Salmeterol/Fluticasone [Advair 100Mcg/50Mcg -] 1 puff IH BID inhaler 10/29/16 Ferrous Sulfate 325 mg PO BID 01/25/17 Oxybutynin Chloride [Ditropan Xl] 5 mg PO DAILY 01/25/17 Pantoprazole Sodium [Protonix] 40 mg PO DAILY 01/25/17 Pramipexole Dihydrochloride [Mirapex -] 0.5 mg PO HS 01/25/17 Furosemide [Lasix] 20 mg PO DAILY #0 mg 03/08/17 Ergocalciferol (Vitamin D2) [Vitamin D2] 50,000 unit PO WEEKLY 05/11/17 Pregabalin [Lyrica -] 150 mg PO BID 05/11/17 Albuterol 0.083% Nebulizer Jenna [Ventolin 0.083% Nebulizer Soln -] 1 neb NEB Q6H PRN #120 vial 05/19/17 Gabapentin 300 mg PO BID #0 tab 05/19/17 Insulin (Levemir) [Levemir Flexpen -] 18 units SQ BID #1 units 05/19/17 Vancomycin HCl in Dextrose 5 % [Vancomycin 1.5 Gram/250 ml-D5w] 1.5 gm IV DAILY #23 plast..bag 05/19/17 - Discharge Referral Referred to [facility] No
[2017-05-19 15:05] VITALS: BP 107/59
[2017-05-19 17:08] VITALS: PULSE 83; TEMP 97.9
[2017-05-19] MEDS ORDERED: AMINO ACIDS/PROTEIN HYDROLYS 30 ML LIQUID.PKT PO SCH (17:30)
[2017-05-20] MEDS ORDERED: VANCOMYCIN 1,500 MG in DEXTROSE 5%-WATER - 500 ML IVPB SCH (10:00)
[2017-05-20] MEDS ORDERED: MULTIVITAMINS (DAILY MVI) TABLET (FP) PO SCH (10:00)
[2017-05-20] MEDS ORDERED: ASCORBIC ACID 250 MG TABLET (FP) PO SCH (10:00)
== END 2017-05-19 17:47 | disposition home health service (06) | DRG 871 ==
LOC: JER 20:51 → JERBED 05-11 01:47 → UNDOADMIN 05-11 01:54 → JERBED 05-11 01:54 → J8W 05-11 15:31
PROVIDERS: ADMIT Internal Medicine; ATTEND Registered Nurse
PROC: 02HV33Z Insertion of Infusion Device into Superior Vena Cava, Percutaneous Approach (ICD-10-PCS; principal; 2017-05-09)
PROC: B518ZZA Fluoroscopy of Superior Vena Cava, Guidance (ICD-10-PCS; 2017-05-09)
PROC: B518ZZA Fluoroscopy of Superior Vena Cava, Guidance (ICD-10-PCS; 2017-05-09)
PROC: B246ZZZ Ultrasonography of Right and Left Heart (ICD-10-PCS; 2017-05-12)
PROC: 0H9NXZZ Drainage of Left Foot Skin, External Approach (ICD-10-PCS; 2017-05-14)
PROC: 0H9MXZZ Drainage of Right Foot Skin, External Approach (ICD-10-PCS; 2017-05-14)
DX: A41.02 Sepsis due to Methicillin resistant Staphylococcus aureus (principal); G92 Toxic encephalopathy; I69.354 Hemiplegia and hemiparesis following cerebral infarction affecting left non-dominant side; N17.9 Acute kidney failure, unspecified; J44.1 Chronic obstructive pulmonary disease with (acute) exacerbation; M86.671 Other chronic osteomyelitis, right ankle and foot; E87.2 Acidosis; M62.82 Rhabdomyolysis; L02.612 Cutaneous abscess of left foot; L02.611 Cutaneous abscess of right foot; R65.20 Severe sepsis without septic shock; E11.22 Type 2 diabetes mellitus with diabetic chronic kidney disease; I12.9 Hypertensive chronic kidney disease with stage 1 through stage 4 chronic kidney disease, or unspecified chronic kidney disease; N18.2 Chronic kidney disease, stage 2 (mild); E11.69 Type 2 diabetes mellitus with other specified complication; E78.5 Hyperlipidemia, unspecified; M10.9 Gout, unspecified; I25.10 Atherosclerotic heart disease of native coronary artery without angina pectoris; Z99.81 Dependence on supplemental oxygen; Z89.422 Acquired absence of other left toe(s); Z87.891 Personal history of nicotine dependence; R09.02 Hypoxemia; D50.9 Iron deficiency anemia, unspecified; F10.10 Alcohol abuse, uncomplicated; K21.9 Gastro-esophageal reflux disease without esophagitis; G47.00 Insomnia, unspecified; K59.00 Constipation, unspecified; N40.0 Benign prostatic hyperplasia without lower urinary tract symptoms; D69.6 Thrombocytopenia, unspecified; E11.621 Type 2 diabetes mellitus with foot ulcer; E11.51 Type 2 diabetes mellitus with diabetic peripheral angiopathy without gangrene; Z79.4 Long term (current) use of insulin
CPT/HCPCS: 36415; 36558; 36600; 70450-TC; 71010-TC; 73630-TC-LT; 73630-TC-RT; 77001-TC; 80048; 80053; 80061; 81003; 81015; 82375; 82550; 82553; 82803; 83036; 83050; 83540; 83550; 83605; 83721; 83735; 84100; 84484; 85025; 85027; 85610; 85651; 85730; 86140; 86850; 86900; 86901; 87040; 87070; 87086; 87186; 87205; 87804; 93005; 93010; 93306-TC; 94640; 97116-GP; 97161-GP; 99285-25; C1751; G0480; J1644

== ENCOUNTER 2017-06-15 08:41 | Emergency (ER) | payer OTHER, BC ==
[2017-06-15 08:46] VITALS: BP 140/76; PULSE 78; TEMP 98; BMI 27.1
--- NOTE | 2017-06-15 09:41 | PDOC ---
History of Present Illness - General Chief Complaint: PICC Line Insertion Stated Complaint: PICC REMOVAL (PCP SENT) Time Seen by Provider: 06/15/17 09:38 History Source: Patient Exam Limitations: No Limitations - History of Present Illness Initial Comments: 06/15/17 09:58 66y M hx of COPD, asthma, dm, cad, cva, htn, hl, esrd, recent dx of osteomyelitis s/p abx presents for tunnelled cathter removal. Pt states his last dose of abx was on tuesday and wanted to take his line out. he has no complaints and has been feeling well - denies any fever/chills, weakness, pain near site. pmd dr. giron has been following up with dr. Benitez from [place] for his ABX Past History - Past Medical History Allergies/Adverse Reactions: Allergies Allergy/AdvReac Type Severity Reaction Status Date / Time No Known Drug Allergies Allergy Verified 06/15/17 08:46 Home Medications: Ambulatory Orders Atorvastatin Ca [Lipitor] 20 mg PO DAILY 05/11/16 Nystatin Powder [Nystop Powder -] 60 gm TP DAILY 05/11/16 Peg 400/Hypromellose/Glycerin [Artificial Tears Drops] 1 drop OU DAILY 05/11/16 Tamsulosin HCl [Flomax -] 0.4 mg PO DAILY 05/11/16 Trazodone HCl [Desyrel -] 50 mg PO HS 05/11/16 Losartan Potassium [Cozaar -] 25 mg PO DAILY tablet 07/19/16 Metoprolol Succinate [Toprol XL -] 25 mg PO DAILY tab.sr.24h 07/19/16 Oxycodone HCl [Roxicodone -] 5 mg PO Q8H PRN #30 tablet MDD 3 07/19/16 Memantine HCl [Namenda Xr] 7 mg PO DAILY 07/22/16 Aclidinium [place] [Tudorza -] 1 puff IH BID inhaler 10/29/16 Amlodipine Besylate [Norvasc -] 5 mg PO DAILY tablet 10/29/16 Clopidogrel Bisulfate [Plavix -] 75 mg PO DAILY tablet 10/29/16 Salmeterol/Fluticasone [Advair 100Mcg/50Mcg -] 1 puff IH BID inhaler 10/29/16 Ferrous Sulfate 325 mg PO BID 01/25/17 Oxybutynin Chloride [Ditropan Xl] 5 mg PO DAILY 01/25/17 Pantoprazole Sodium [Protonix] 40 mg PO DAILY 01/25/17 Pramipexole Dihydrochloride [Mirapex -] 0.5 mg PO HS 01/25/17 Furosemide [Lasix] 20 mg PO DAILY #0 mg 03/08/17 Ergocalciferol (Vitamin D2) [Vitamin D2] 50,000 unit PO WEEKLY 05/11/17 Pregabalin [Lyrica -] 150 mg PO BID 05/11/17 Albuterol 0.083% Nebulizer [place]enna [Ventolin 0.083% Nebulizer Soln -] 1 neb NEB Q6H PRN #120 vial 05/19/17 Gabapentin 300 mg PO BID #0 tab 05/19/17 Insulin (Levemir) [Levemir Flexpen -] 18 units SQ BID #1 units 05/19/17 Anemia: No Asthma: Yes Cardiac Disorders: Yes (CAD) CVA: Yes (L sided weakness) COPD: Yes (3L O2 NC AT HOME) DVT: No Diabetes: Yes Disorders: Yes HTN: Yes Hypercholesterolemia: Yes - Surgical History Appendectomy: Yes Cholecystectomy: Yes Orthopedic Surgery: (Left toe amputation) - Immunization History Immunization Up to Date: Yes - Suicide/Smoking/Psychosocial Hx Smoking Status: No Smoking History: Never smoked Have you smoked in the past 12 months: No Number of Cigarettes Smoked Daily: 10 If you are a former smoker, when did you quit?: May 2014 'Breaking Loose' booklet given: 08/22/15 Hx Alcohol Use: No Drug/Substance Use Hx: No Substance Use Type: None Hx Substance Use Treatment: No Review of Systems - Review of Systems Able to Perform ROS?: Yes Comments:: 06/15/17 10:02 Constitutional - no reported Fever, Chills, weakness Respiratory: no reported cough, sob, hemoptysis Cardiac: no reported chest pain, palpitations, light headedness, leg swelling Abd/GI: no reported abd pain, nausea, vomiting, b skin - no reported bruising, erythema, rash hematologic: no reported anemia, easy bruising, easy bleeding *Physical Exam - Vital Signs Last Vital Signs Temp Pulse Resp BP Pulse Ox 98.0 F 78 20 140/76 97 06/15/17 08:44 06/15/17 08:44 06/15/17 08:44 06/15/17 08:44 06/15/17 08:44 - Physical Exam Comments: 06/15/17 10:02 GENERAL: The patient is awake, alert, and fully oriented, Nontoxic - in no acute distress. NECK: Normal range of motion, supple CHEST: tunneled cathter in place, site is c/d/i SKIN: Warm, Dry, normal turgor Medical Decision Making - Medical Decision Making 06/15/17 10:[address] bonner regarding possibly getting a scrip to have the pts line out 06/15/17 10:[address] bonner pt does not need any further abx will have pt schedule outpatient visit for he line removal *DC/Admit/Observation/Transfer Diagnosis at time of Disposition: Intravenous catheter in place - Discharge Dispostion Disposition: HOME Condition at time of disposition: Improved Admit: No - Referrals Referrals: Johnny Giron MD, MD [Primary Care Provider] - - Patient Instructions Additional Instructions: Please call [facility] at [phone] to schedule an appointment to have your tunnelled cathter removed by interventional radiology Print Language: QATARI - Post Discharge Activity
--- NOTE | 2017-06-15 11:14 | PN ---
Progress Note (short form) - Note Progress Note: ID Consult dictated Infected L diabetic foot ulcer/ osteomyelitis- MRSA Recurrent MRSA bacteremia Diabetes mellitus OK to D/C tunnelled catheter Substitute Bactrim DS po bid x 14d ( will e-prescribe) senior living antibiotic suppression thereafter with doxycycline/ rifampin Follow up in office 2w
--- NOTE | 2017-06-15 12:06 | CONS ---
INFECTIOUS DISEASE CONSULTATION DATE OF CONSULTATION: DATE OF DICTATION: 06/15/2017 HISTORY OF PRESENT ILLNESS: This is a 66-year-old male, diabetic, with a history of recurrent diabetic foot infections and recurrent MRSA bacteremias, now seen in followup for MRSA bacteremia. The patient was hospitalized from May 11, 2017, through May 19, 2017, at [facility] [place] with a left foot abscess. Cultures of the wound and blood subsequently were positive for MRSA. He received a course of intravenous antibiotics in the hospital and was discharged home with a tunnel catheter to complete a 4 to 6-week course of intravenous vancomycin therapy. He was seen in the office last week. The patient was doing well. [facility]. He reports significant wound healing. He has ulcerations on his feet bilaterally, left greater than right. There is a small amount of drainage noted from the left foot ulcer. He denies any fever or chills. He has been tolerating the antibiotic therapy without adverse reaction. PAST MEDICAL HISTORY: Positive for: 1. Diabetes mellitus. 2. History of recurrent diabetic foot infections, recurrent osteomyelitis, and MRSA bacteremias. 3. CVA. 4. Hypertension. 5. Chronic kidney disease. 6. Hyperlipidemia. 7. Gouty arthritis. 8. COPD. 9. Obstructive sleep apnea. PAST SURGICAL HISTORY: Status post amputation of the left 2nd toe. ALLERGIES: No known allergies. MEDICATIONS: 1. Lipitor. 2. Flomax. 3. Trazodone. 4. Cozaar. 5. Toprol. 6. Oxycodone. 7. Namenda. 8. Norvasc. 9. Plavix. 10. Protonix. 11. Lasix. 12. Lyrica. SOCIAL HISTORY: He resides at home. Nonsmoker and nondrinker. SYSTEMS REVIEW: Neurologic: No loss of consciousness or seizure activity. Cardiac: Negative for chest pain or palpitations. Respiratory: Negative for cough or sputum production. Gastrointestinal: Negative for vomiting or diarrhea. Genitourinary: Negative for urinary tract infection. LABORATORY DATA: White count of 6.8, hematocrit of 30.1, and platelet count of 238. BUN of 15 and creatinine of 1.3. PHYSICAL EXAMINATION:General: On physical examination, he is awake and alert. He is not acutely toxic appearing. Vital Signs: Temperature of 98.0, blood pressure of 140/76, pulse of 78 and regular, and respirations of 18 per minute. HEENT: Sclerae are anicteric. Cardiovascular: Heart sounds S1, S2. Skin: Tunneled catheter site with no erythema or tenderness. Abdomen: Soft, no tenderness is elicited. No mass, rebound, or rigidity. Extremities: Negative for edema. Examination of the left foot with positive Charcot joint. There is a 2-cm ulceration present on the medial aspect of the plantar arch. There is no . There is granulation tissue. No gross purulence. However, there is some drainage noted on the dressing. Examination of the right foot there is an ulceration present over the plantar aspect of the 1st metatarsal head approximately 1-cm in diameter. There is good granulation tissue noted. No purulent drainage. IMPRESSION: 1. Infected diabetic foot ulcer/osteomyelitis of the left foot, methicillin-resistant Staphylococcus aureus. 2. 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 3. Diabetes mellitus. Okay to discontinue vancomycin and remove tunneled catheter. Substitute Bactrim double-strength twice daily for an additional 14 days followed by long-term antibiotic suppression with doxycycline and rifampin. Local wound care. Follow up with Dr. Sanders. Thank you for the kind referral. GLADIS YOUSSEF M.D. [id number]
== END 2017-06-15 11:34 | disposition home or self-care (01) ==
LOC: JER 08:41 → JERFT 08:41 → JER 11:34
DX: Z46.82 Encounter for fitting and adjustment of non-vascular catheter (principal); J44.9 Chronic obstructive pulmonary disease, unspecified; E78.5 Hyperlipidemia, unspecified; E11.22 Type 2 diabetes mellitus with diabetic chronic kidney disease; I12.0 Hypertensive chronic kidney disease with stage 5 chronic kidney disease or end stage renal disease; N18.6 End stage renal disease; J45.909 Unspecified asthma, uncomplicated
CPT/HCPCS: 99283-25

== ENCOUNTER → 2017-06-16 | Day surgery (SDC) | payer OTHER, BC | END | disposition home or self-care (01) | LOC: JRADIR 12:19 | PROVIDERS: ATTEND Internal Medicine | PROC: 0JPV0XZ Removal of Tunneled Vascular Access Device from Upper Extremity Subcutaneous Tissue and Fascia, Open Approach (ICD-10-PCS; principal; 2017-06-16) | DX: Z45.2 Encounter for adjustment and management of vascular access device (principal) | CPT/HCPCS: 36589 ==

== ENCOUNTER 2017-08-06 13:17 | Inpatient (IN) | payer OTHER, BC ==
[2017-08-06] MEDS ORDERED: SODIUM CHLORIDE 500 ML IV STA ×2 (13:58→20:28)
[2017-08-06] MEDS ORDERED: morphine CARPU-JECT 4 MG/1 ML DISP.SYRIN IVPUSH ONE ×2 (13:58→16:48)
[2017-08-06] MEDS ORDERED: morphine CARPU-JECT 10 MG/1 ML DISP.SYRIN ONE ×2 (14:09→16:27)
--- NOTE | 2017-08-06 14:14 | PDOC ---
Attending Attestation - HPI HPI: 08/06/17 14:14 The patient is a 66 year old male, with a significant past medical history of osteomyelitis, COPD, asthma, DM, Parkinsons, HTN, CVA, GERD, and chronic foot ulcers(admission in June for MRSA bacteremia), who presents to the emergency department complaining of nonradiating back pain for approximately 3 days. The patient reports the pain is localized to the left flank and is exacerbated when ambulating. He denies any associated dysuria, hematuria, frequency, or urgency. He denies any abdominal pain, nausea, vomiting, diarrhea , or constipation. He denies any recent fever, chills, or dizziness. He denies any chest pain, shortness of breath, diaphoresis, or palpitations. He denies any recent trauma, travel, or sick contacts. Allergies: NKDA - Physicial Exam PE: 08/06/17 14:15 Vitals: Triage Vital signs reviewed General Appearance: Moderate distress, well nourished well developed, Head: Atraumatic, normocephalic Neck: Supple;No Nuchal rigidity Chest Wall: Nontender Cardiac: Regular rate and rhythm, no murmurs, no rubs, no gallops, Lungs: Clear to auscultation bilateral, good air movement bilaterally, Abdomen: Soft, nondistended, normal bowel sounds, nontender to palpation Back: Moderate to severe left CVA tenderness to palpation. No right CVA tenderness. No midline tenderness. Extremities: Full range of motion to all extremities, no cyanosis, clubbing, or edema Skin: Warm and dry, no rashes or lesions, no petechiae Neuro: AOX3; Cranial Nerves 2-12 grossly intact, Strength intact to all extremities, Sensation intact to all extremities - Medical Decision Making 08/06/17 14:15 Documentation prepared by Kelvin Byrnes, acting as electromedical equipment repairer for Bao Hernandez MD. <Kelvin Byrnes - Last Filed: 08/06/17 15:39> - Resident Resident Name: Johnny Barone - ED Attending Attestation I have performed the following: I have examined & evaluated the patient, The case was reviewed & discussed with the resident, I agree w/resident's findings & plan, Exceptions are as noted - Medical Decision Making Patient with right CVA tenderness palpation on exam labs pending. CT pending. Dr. Morrison to f/u CT labs and reasses <Bao Hernandez - Last Filed: 08/06/17 17:00>
[2017-08-06 14:21] LABS: URINE APPEARANCE CLEAR; URINE BILIRUBIN NEGATIVE (NEGATIVE); URINE BLOOD 1+ (NEGATIVE); URINE COLOR LTYELLOW; URINE GLUCOSE (UA) 1+ (NEGATIVE); URINE KETONE NEGATIVE (NEGATIVE); URINE LEUK ESTERASE NEGATIVE (NEGATIVE); URINE NITRITE NEGATIVE (NEGATIVE); URINE PROTEIN NEGATIVE (NEGATIVE); URINE UROBILINOGEN NEGATIVE mg/dL (0.2-1.0)
--- NOTE | 2017-08-06 14:48 | PDOC ---
History of Present Illness <Dequan Jason - Last Filed: 08/06/17 21:12> - General History Source: Patient Exam Limitations: No Limitations - History of Present Illness Initial Comments: 08/06/17 14:36 Patient is a 66M with history of HTN, IDDM, CVA with residual left sided weakness, COPD (on 3L O2 at home), gout, renal insufficiency, chronic lower extremity wounds (refused amputation and SNF placement, s/p PICC placement with abx and removal), and kidney stones here today complaining of left sided back/ abdominal pain for the past three days. The pain is described as constant and the patient is tearful about his pain. Denies blood or pain with urination. Last bowel movement was yesterday. Denies associated nausea, vomiting, fevers and chills. Denies chest pain, shortness of breath. <Johnny Barone - Last Filed: 08/06/17 21:43> - General Chief Complaint: Pain Stated Complaint: ABD PAIN Time Seen by Provider: 08/06/17 13:28 Past History <Dequan Jason - Last Filed: 08/06/17 21:12> - Past Medical History Anemia: No Asthma: Yes Cancer: No Cardiac Disorders: Yes (CAD) CVA: Yes (L sided weakness) COPD: Yes (3L O2 NC AT HOME) CHF: No DVT: No Dementia: No Diabetes: Yes GI Disorders: No Disorders: Yes HTN: Yes Hypercholesterolemia: Yes Liver Disease: No Seizures: No Thyroid Disease: No - Surgical History Abdominal Surgery: No Appendectomy: Yes Cardiac Surgery: No Cholecystectomy: Yes Lung Surgery: No Neurologic Surgery: No Orthopedic Surgery: (Left toe amputation) - Immunization History Immunization Up to Date: Yes - Suicide/Smoking/Psychosocial Hx Smoking Status: No Smoking History: Never smoked Have you smoked in the past 12 months: No Number of Cigarettes Smoked Daily: 10 If you are a former smoker, when did you quit?: May 2014 'Breaking Loose' booklet given: 08/22/15 Hx Alcohol Use: No Drug/Substance Use Hx: No Substance Use Type: None Hx Substance Use Treatment: No <Johnny Barone - Last Filed: 08/06/17 21:43> - Past Medical History Allergies/Adverse Reactions: Allergies Allergy/AdvReac Type Severity Reaction Status Date / Time No Known Drug Allergies Allergy Verified 08/06/17 13:20 Home Medications: Ambulatory Orders Atorvastatin Ca [Lipitor] 20 mg PO DAILY 05/11/16 Nystatin Powder [Nystop Powder -] 60 gm TP DAILY 05/11/16 Peg 400/Hypromellose/Glycerin [Artificial Tears Drops] 1 drop OU DAILY 05/11/16 Tamsulosin HCl [Flomax -] 0.4 mg PO DAILY 05/11/16 Trazodone HCl [Desyrel -] 50 mg PO HS 05/11/16 Losartan Potassium [Cozaar -] 25 mg PO DAILY tablet 07/19/16 Metoprolol Succinate [Toprol XL -] 25 mg PO DAILY tab.sr.24h 07/19/16 Oxycodone HCl [Roxicodone -] 5 mg PO Q8H PRN #30 tablet MDD 3 07/19/16 Memantine HCl [Namenda Xr] 7 mg PO DAILY 07/22/16 Aclidinium [place] [Tudorza -] 1 puff IH BID inhaler 10/29/16 Amlodipine Besylate [Norvasc -] 5 mg PO DAILY tablet 10/29/16 Clopidogrel Bisulfate [Plavix -] 75 mg PO DAILY tablet 10/29/16 Salmeterol/Fluticasone [Advair 100Mcg/50Mcg -] 1 puff IH BID inhaler 10/29/16 Ferrous Sulfate 325 mg PO BID 01/25/17 Oxybutynin Chloride [Ditropan Xl] 5 mg PO DAILY 01/25/17 Pantoprazole Sodium [Protonix] 40 mg PO DAILY 01/25/17 Pramipexole Dihydrochloride [Mirapex -] 0.5 mg PO HS 01/25/17 Furosemide [Lasix] 20 mg PO DAILY #0 mg 03/08/17 Ergocalciferol (Vitamin D2) [Vitamin D2] 50,000 unit PO WEEKLY 05/11/17 Pregabalin [Lyrica -] 150 mg PO BID 05/11/17 Albuterol 0.083% Nebulizer Jenna [Ventolin 0.083% Nebulizer Soln -] 1 neb NEB Q6H PRN #120 vial 05/19/17 Gabapentin 300 mg PO BID #0 tab 05/19/17 Insulin (Levemir) [Levemir Flexpen -] 18 units SQ BID #1 units 05/19/17 Review of Systems - Review of Systems Comments:: 08/06/17 14:48 GENERAL/CONSTITUTIONAL: No fever or chills. No weakness. HEAD, EYES, EARS, NOSE AND THROAT: No change in vision. No sore throat. CARDIOVASCULAR: No chest pain or shortness of breath RESPIRATORY: No cough, wheezing, or hemoptysis. GASTROINTESTINAL: No nausea, vomiting, diarrhea or constipation. GENITOURINARY: No dysuria, frequency, or change in urination. MUSCULOSKELETAL: Positive for back and leg pain SKIN: No rash NEUROLOGIC: No headache, vertigo, loss of consciousness, or change in strength/ sensation. ENDOCRINE: No increased thirst. No abnormal weight change HEMATOLOGIC/LYMPHATIC: No anemia, easy bleeding, or history of blood clots. ALLERGIC/IMMUNOLOGIC: No hives or skin allergy. <Johnny Barone - Last Filed: 08/06/17 21:43> *Physical Exam - Vital Signs Last Vital Signs Temp Pulse Resp BP Pulse Ox 97 F L 71 20 111/74 197 H 08/06/17 14:40 08/06/17 16:36 08/06/17 16:36 08/06/17 16:36 08/06/17 16:36 <Dequan Jason - Last Filed: 08/06/17 21:12> - Physical Exam Comments: 08/06/17 15:17 GENERAL: Awake, alert, and fully oriented, tearful R FOOT: .5x.5cm ulcer without surrounding erythema or discharge located along medial aspect of great toe L FOOT: 2x2cm ulcer with small amount of discharge but no erythema along plantar aspect of foot HEAD: No signs of trauma, normocephalic, atraumatic EYES: PERRLA, EOMI, sclera anicteric, conjunctiva clear ENT: Auricles normal inspection, hearing grossly normal, nares patent, oropharynx clear without exudates. Moist mucosa LUNGS: No distress, speaks full sentences, clear to auscultation bilaterally HEART: Regular rate and rhythm, normal S1 and S2, no murmurs, rubs or gallops, peripheral pulses normal and equal bilaterally. ABDOMEN: Soft, nontender, normoactive bowel sounds. No guarding, no rebound. No masses BACK: No midline tenderness, no signs of trauma, no rash, tender along posterior aspect of left lower ribs EXTREMITIES: Normal inspection, Normal range of motion, no edema. No clubbing or cyanosis. NEUROLOGICAL: Cranial nerves II through XII grossly intact. Normal speech, normal gait with cane, no focal sensorimotor deficits <Johnny Barone - Last Filed: 08/06/17 21:43> ED Treatment Course - LABORATORY CBC & Chemistry Diagram: 08/06/17 18:20 08/06/17 13:12 - ADDITIONAL ORDERS Additional order review: Laboratory Results 08/06/17 08/06/17 14:00 13:12 Sodium 140 Potassium 4.3 Chloride 107 Carbon Dioxide 23 D Anion Gap 10 BUN 46 H D Creatinine 1.9 H D Creat Clearance w eGFR 35.64 Random Glucose 129 H Calcium 8.6 Total Bilirubin 0.3 D AST 25 ALT 19 Alkaline Phosphatase 313 H D Total Protein 7.1 Albumin 2.7 L Lipase 220 Urine Color Ltyellow Urine Appearance Clear Urine pH 5.0 Ur Specific [place] 1.014 Urine Protein Negative Urine Glucose (UA) 1+ H Urine Ketones Negative Urine Blood 1+ H Urine Nitrite Negative Urine Bilirubin Negative Urine Urobilinogen Negative Ur Leukocyte Esterase Negative Urine WBC (Auto) 1 Urine RBC (Auto) None 08/06/17 08/06/17 18:20 15:00 RBC 5.78 H D Cancelled MCV 67.3 L Cancelled MCHC 29.9 L Cancelled RDW 20.7 H Cancelled MPV 9.6 Cancelled Neutrophils % 58.1 Cancelled Lymphocytes % 28.3 D Cancelled Monocytes % 9.0 Cancelled Eosinophils % 4.0 Cancelled Basophils % 0.6 Cancelled - Medications Given in the ED: ED Medications Discontinued Medications Generic Name Dose Route Start Last Admin Trade Name Jay Jay PRN Reason Stop Dose Admin Sodium Chloride 500 mls @ 500 mls/hr 08/06/17 13:58 08/06/17 15:12 Normal Saline - IV 08/06/17 14:57 500 mls/hr ASDIR STA Administration Morphine Sulfate 4 mg 08/06/17 13:58 08/06/17 15:00 Morphine Injection - IVPUSH 08/06/17 13:59 4 mg ONCE ONE Administration Morphine Sulfate 4 mg 08/06/17 16:48 08/06/17 16:25 Morphine Injection - IVPUSH 08/06/17 16:49 4 mg ONCE ONE Administration Oxycodone/Acetaminophen 1 combo 08/06/17 15:07 08/06/17 15:08 Percocet 5/325 - PO 08/06/17 15:08 1 combo ONCE ONE Administration <Dequan Jason - Last Filed: 08/06/17 21:12> - LABORATORY CBC & Chemistry Diagram: 08/06/17 18:20 08/06/17 13:12 - ADDITIONAL ORDERS Additional order review: Laboratory Results 08/06/17 14:00 Urine Color Ltyellow Urine Appearance Clear Urine pH 5.0 Ur Specific [place] 1.014 Urine Protein Negative Urine Glucose (UA) 1+ H Urine Ketones Negative Urine Blood 1+ H Urine Nitrite Negative Urine Bilirubin Negative Urine Urobilinogen Negative Ur Leukocyte Esterase Negative - RADIOLOGY Radiology Studies Ordered: Category Date Time Status ABDOMEN & PELVIS CT WITH CONTR [CT] Stat CT Scan 08/06/17 14:18 Ordered <Johnny Barone - Last Filed: 08/06/17 21:43> Medical Decision Making - Medical Decision Making 08/06/17 21:[address] Mooney at 8:45 pm. Pending call back. Second page sent to Dr. Mooney at 9:05 pm. Ecological Modeler advised Dr. Vincent is covering for Dr. Mooney and advised Dr. Vincent request to admit to the hospitalist. <Dequan Jason - Last Filed: 08/06/17 21:12> - Medical Decision Making 08/06/17 15:20 Patient is a 66M with history of HTN, IDDM, CVA with residual left sided weakness, COPD (on 3L O2 at home), gout, renal insufficiency, chronic lower extremity wounds (refused amputation and SNF placement, s/p PICC placement with abx and removal), and kidney stones here today complaining of left sided back/ abdominal pain. Vital signs stable and normal. Differential diagnosis includes, but is not limited to: kidney stone, msk pain, pancreatitis. Will evaluate further with cbc, cmp, ua, lipase, ct abd/pelvis with iv contrast. 08/06/17 16:15 Laboratory Tests 08/06/17 08/06/17 13:12 14:00 BUN 46 H D Creatinine 1.9 H D Urine Nitrite Negative Ur Leukocyte Esterase Negative Urine WBC (Auto) 1 UA negative. Cr elevated to 1.9, last 1.3. Currently getting fluids, will continue to gently hydrate. Patient has JESÚS. CT order changed to non-con. Lipase negative. 08/06/17 16:33 POCUS shows aortic size of 1.12cm at maximum. 08/06/17 20:25 CT shows calcified abdominal aorta, moderately abundant stool, no kidney stone, fat containing umbilical hernia. No acute process. 08/06/17 21:22 Admitted to obs via Dr Hunter. 08/06/17 21:41 EKG shows sinus bradycardia with 1st degree av block. Rate 55bpm. Q waves in III , aVF similar to earlier EKG. MI interval 222ms. No st elevations/depressions. <Johnny Barone - Last Filed: 08/06/17 21:43> *DC/Admit/Observation/Transfer <Dequan Jason - Last Filed: 08/06/17 21:12> - Discharge Dispostion Admit: Yes <Johnny Barone - Last Filed: 08/06/17 21:43> Diagnosis at time of Disposition: JESÚS (acute kidney injury) - Discharge Dispostion Condition at time of disposition: Stable
[2017-08-06 14:57] LABS: ALBUMIN 2.7 g/dl (3.4-5.0); ANION GAP 10 (8-16); BILIRUBIN,TOTAL 0.3 mg/dL (0.2-1.0); BLOOD UREA NITROGEN 46 mg/dL (7-18); CALCIUM 8.6 mg/dL (8.5-10.1); CHLORIDE 107 mmol/L (98-107); CO2 23 mmol/L (21-32); CREATININE 1.9 mg/dL (0.7-1.3); GLUCOSE,RANDOM 129 mg/dL (74-106); POTASSIUM 4.3 mmol/L (3.5-5.1); SGOT/AST 25 U/L (15-37); SGPT/ALT 19 U/L (12-78); SODIUM 140 mmol/L (136-145); TOT PROT 7.1 g/dl (6.4-8.2)
[2017-08-06 14:58] LABS: ALK PHOS 313 U/L (45-117); LIPASE 220 U/L (73-393)
[2017-08-06 18:51] LABS: BASO % 0.6 % (0-2.0); HEMATOCRIT 38.9 % (35.4-49); HEMOGLOBIN 11.6 GM/dL (11.7-16.9); LYMPH % 28.3 % (8-40); MCH 20.2 pg (25.7-33.7); MCHC 29.9 g/dl (32.0-35.9); MEAN CELL VOLUME 67.3 fl (80-96); MEAN PLT VOLUME 9.6 fl (7.5-11.1); NEUT % 58.1 % (42.8-82.8); PLATELET COUNT 89 K/MM3 (134-434); RBC 5.78 M/mm3 (4.00-5.60); RDW 20.7 % (11.9-15.9); WHITE BLOOD COUNT 6.8 K/mm3 (4.0-10.0)
[2017-08-06 19:10] LABS: ADD RBC MORPHOLOGY YES
[2017-08-06 19:45] LABS: ANISOCYTOSIS 3+; MACROCYTOSIS 1+
[2017-08-06 19:46] LABS: PLATELET ESTIMATE DECREASED
[2017-08-06] MEDS ORDERED: ACETAMINOPHEN 325 MG TABLET (FP) ONE (21:06)
[2017-08-07] MEDS ORDERED: morphine CARPU-JECT 10 MG/1 ML DISP.SYRIN ONE
[2017-08-07] MEDS: morphine CARPU-JECT 10 MG/1 ML DISP.SYRIN IVPUSH PRN ×2 (00:06→10:52)
--- NOTE | 2017-08-07 00:06 | HP ---
Admitting History and Physical - Primary Care Physician PCP: Miguel Mooney - Admission Chief Complaint: Left Flank and Abdominal Pain History of Present Illness: This is a 66 y.o man with a significant medical history of HTN, IDDM, COPD (on 3L O2, HS), Renal Insufficiency, CVA (residual L- sided), GOUT, Osteomyelitis. Who presents to the ED with sharp Left Flank Pain radiating to his abdomen x several days. Patient's last admission was in May last year for Osteomyelitis. Patient denies fall or trauma. 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 Cardiovascular: Yes: HTN, Hyperlipdemia, Other (PAD) Pulmonary: Yes: Asthma, COPD, O2 Dependent, Pulmonary Fibrosis, Sleep Apnea Hepatobiliary: Yes: Cholecystitis Renal/: Yes: Renal Inusuff Musculoskeletal: Yes: Other (chronic foot ulcers) Endocrine: Yes: Diabetes Mellitus - Past Surgical History Past Surgical History: Yes: Amputation (second toe left foot), Appendectomy, Bypass (leg), Carotid Endarterectomy (right), Cholecystectomy, Tonsillectomy - Smoking History Smoking history: Never smoked Have you smoked in the past 12 months: No Aproximately how many cigarettes per day: 10 If you are a former smoker, when did you quit?: May 2014 - Alcohol/Substance Use Hx Alcohol Use: No Number of Drinks Daily: 2 (beer, cr on weekend) History of Substance Use: reports: None - Social History ADL: Independent (uses a walker and wheelchair, in process of getting a scooter) 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[employer] ,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 History of Recent Travel: No Home Medications - Allergies Allergies/Adverse Reactions: Allergies Allergy/AdvReac Type Severity Reaction Status Date / Time No Known Drug Allergies Allergy Verified 08/06/17 13:20 - Home Medications Home Medications: Ambulatory Orders Nystatin Powder [Nystop Powder -] 60 gm TP DAILY 05/11/16 Tamsulosin HCl [Flomax -] 0.4 mg PO DAILY 05/11/16 Trazodone HCl [Desyrel -] 50 mg PO HS 05/11/16 Metoprolol Succinate [Toprol XL -] 25 mg PO DAILY tab.sr.24h 07/19/16 Oxycodone HCl [Roxicodone -] 5 mg PO Q8H PRN #30 tablet MDD 3 07/19/16 Memantine HCl [Namenda Xr] 7 mg PO DAILY 07/22/16 Aclidinium [place] [Tudorza -] 1 puff IH BID inhaler 10/29/16 Amlodipine Besylate [Norvasc -] 5 mg PO DAILY tablet 10/29/16 Clopidogrel Bisulfate [Plavix -] 75 mg PO DAILY tablet 10/29/16 Ferrous Sulfate 325 mg PO BID 01/25/17 Pantoprazole Sodium [Protonix] 40 mg PO DAILY 01/25/17 Furosemide [Lasix] 20 mg PO DAILY #0 mg 03/08/17 Ergocalciferol (Vitamin D2) [Vitamin D2] 50,000 unit PO WEEKLY 05/11/17 Pregabalin [Lyrica -] 150 mg PO BID 05/11/17 Albuterol 0.083% Nebulizer Jenna [Ventolin 0.083% Nebulizer Soln -] 1 neb NEB Q6H PRN #120 vial 05/19/17 Gabapentin 300 mg PO BID #0 tab 05/19/17 Insulin (Levemir) [Levemir Flexpen -] 18 units SQ BID #1 units 05/19/17 Doxycycline Hyclate 100 mg PO DAILY 08/06/17 Oxybutynin Chloride [Ditropan Xl] 5 mg PO DAILY 08/06/17 Pramipexole Dihydrochloride [Mirapex -] 0.5 mg PO HS 08/06/17 Rifampin [Rifadin -] 300 mg PO DAILY 08/06/17 Family Disease History - Family Disease History Family Disease History: Diabetes: Mother (htn), Other: Father (htn), Mother Physical Examination Vital Signs: Vital Signs Temperature 97 F L 08/06/17 14:40 Pulse Rate 71 08/06/17 16:36 Respiratory Rate 20 08/06/17 16:36 Blood Pressure 111/74 08/06/17 16:36 O2 Sat by Pulse Oximetry (%) 197 H 08/06/17 16:36 Labs: CBC, BMP 08/06/17 18:20 08/06/17 13:12 Problem List - Problems (1) Acute kidney injury superimposed on CKD Assessment/Plan: - Hold Lasix- patient is volume depleted - NS bolus given in ED - Repeat BMP in am, if Cr not improved, will give gentle IVF - CTAP- shows calcified abdominal aorta, moderately abundant stool, no kidney stone, fat containing umbilical hernia. No acute process - Avoid Nephrotoxins Code(s): N17.9 - ACUTE KIDNEY FAILURE, UNSPECIFIED; N18.9 - CHRONIC KIDNEY DISEASE, UNSPECIFIED (2) Hypertension Assessment/Plan: - Controlled - Monitor BP - Continue home meds with parameters Code(s): I10 - ESSENTIAL (PRIMARY) HYPERTENSION Qualifiers: Hypertension type: essential hypertension Qualified Code(s): I10 - Essential (primary) hypertension (3) Diabetes mellitus type 2 with peripheral artery disease Assessment/Plan: - BGMs - Continue Levemir Code(s): E11.51 - TYPE 2 DIABETES W DIABETIC PERIPHERAL ANGIOPATH W/O GANGRENE (4) Anemia Assessment/Plan: - At Baseline - Will transfuse if Hgb < 7.0 Code(s): D64.9 - ANEMIA, UNSPECIFIED Qualifiers: Anemia type: unspecified type Qualified Code(s): D64.9 - Anemia, unspecified (5) Hyperlipidemia Assessment/Plan: Continue home med Code(s): E78.5 - HYPERLIPIDEMIA, UNSPECIFIED Qualifiers: Hyperlipidemia type: pure hypercholesterolemia Qualified Code(s): E78.00 - Pure hypercholesterolemia, unspecified (6) Osteomyelitis Assessment/Plan: - Hx MRSA Code(s): M86.9 - OSTEOMYELITIS, UNSPECIFIED Qualifiers: Osteomyelitis location: foot (7) DVT prophylaxis Assessment/Plan: - OOB Code(s): [id number] - Assessment/Plan This is a 66 y/o man with a PMHx of: HTN, IDDM, COPD (3L, HS), Renal Insufficiency, Osteomyelitis. Placed on Observation JESÚS on CKD. FEN - NS@42cc/hr - Replete lytes prn - Low Na, Diabetic Diet Code Status: Full Code Dispo: Obs Visit type - Emergency Visit Emergency Visit: Yes ED Registration Date: 08/06/17 Care time: The patient presented to the Emergency Department on the above date and was hospitalized for further evaluation of their emergent condition. - New Patient This patient is new to me today: Yes Date on this admission: 08/06/17 - Critical Care Critical Care patient: No
[2017-08-07] MEDS ORDERED: ALBUTEROL SO4 0.083% IH SOL 2.5 MG/3 ML VIAL.NEB. NEB PRN (02:25)
[2017-08-07 03:32] VITALS: BMI 25.9
[2017-08-07] MEDS ORDERED: INSULIN SQ SCH ×2 (07:00→10:00)
[2017-08-07 07:52] LABS: RBC 5.27 M/mm3 (4.00-5.60); WHITE BLOOD COUNT 6.2 K/mm3 (4.0-10.0)
[2017-08-07 08:34] LABS: BASO % 1.1 % (0-2.0); HEMATOCRIT 35.8 % (35.4-49); HEMOGLOBIN 10.7 GM/dL (11.7-16.9); LYMPH % 37.8 % (8-40); MCH 20.5 pg (25.7-33.7); MCHC 29.9 g/dl (32.0-35.9); MEAN CELL VOLUME 68.4 fl (80-96); MEAN PLT VOLUME 10.3 fl (7.5-11.1); MONO % 12.4 % (3.8-10.2); NEUT % 41.7 % (42.8-82.8); RDW 21.4 % (11.9-15.9)
[2017-08-07 08:40] LABS: ADD RBC MORPHOLOGY YES
[2017-08-07 09:21] LABS: BLOOD UREA NITROGEN 43 mg/dl (7-18); CREATININE 1.8 mg/dl (0.6-1.3); GLUCOSE,RANDOM 90 mg/dl (74-106); POTASSIUM 4.5 mmol/L (3.5-5.1); SODIUM 141 mmol/L (136-145)
[2017-08-07 09:22] LABS: ANION GAP 9 (8-16); CALCIUM 7.9 mg/dl (8.4-10.2); CHLORIDE 110 mmol/L (98-107); CO2 22 mmol/L (22-28)
[2017-08-07] MEDS ORDERED: MEMANTINE HCL 7 MG PO SCH (10:00)
[2017-08-07] MEDS ORDERED: INSULIN DETEMIR 100 UNITS/ML MDV SQ SCH (10:00)
[2017-08-07 10:10] LABS: ANISOCYTOSIS 2+; PLATELET ESTIMATE DECREASED
--- NOTE | 2017-08-07 10:26 | PN ---
Progress Note, Physician History of Present Illness: C/O LEFT FLANK PAIN NO N/V - Current Medication List Current Medications: Active Medications Albuterol Sulfate (Ventolin 0.083% Nebulizer Soln -) 1 amp NEB Q6H PRN PRN Reason: WHEEZING Amlodipine Besylate (Norvasc -) 5 mg PO DAILY [facility] Clopidogrel Bisulfate (Plavix -) 75 mg PO DAILY [facility] Docusate Sodium (Colace -) 100 mg PO TID [facility] Ferrous Sulfate (Feosol -) 325 mg PO BID [facility] Gabapentin (Neurontin -) 300 mg PO BID [facility] Insulin Detemir (Levemir Vial) 18 units SQ BID [facility] Metoprolol Succinate (Toprol Xl -) 25 mg PO DAILY [facility] Morphine Sulfate (Morphine Injection -) 4 mg IVPUSH Q6H PRN PRN Reason: PAIN Last Admin: 08/07/17 00:06 Dose: 4 mg Nystatin (Nystop Powder -) 1 applic TP DAILY [facility] Pantoprazole Sodium (Protonix -) 40 mg PO DAILY [facility] Pramipexole Dihydrochloride (Mirapex -) 0.5 mg PO HS [facility] Pregabalin (Lyrica -) 75 mg PO BID [facility] Rifampin (Rifadin -) 300 mg PO DAILY [facility] Tamsulosin HCl (Flomax -) 0.4 mg PO DAILY@0830 [facility] Tiotropium [place] (Spiriva -) 1 puff IH DAILY MISSAEL - Objective Vital Signs: Vital Signs Temperature 97.6 F 08/07/17 06:00 Pulse Rate 56 L 08/07/17 06:00 Respiratory Rate 20 08/07/17 06:00 Blood Pressure 113/73 08/07/17 06:00 O2 Sat by Pulse Oximetry (%) 96 08/07/17 03:30 Cardiovascular: Yes: Regular Rate and Rhythm Respiratory: Yes: Regular, CTA Bilaterally Gastrointestinal: Yes: Normal Bowel Sounds, Soft. No: Tenderness Edema: No Labs: CBC, BMP 08/07/17 07:24 08/07/17 07:24 Problem List - Problems (1) Flank pain Assessment/Plan: NO OBVIOUS SOURCE ON CT XRAY OF RIBS PAIN MEDS FOLLOW LABS Code(s): R10.9 - UNSPECIFIED ABDOMINAL PAIN (2) Acute kidney injury superimposed on CKD Assessment/Plan: IVF MONITOR LABS HOLD LASIX Code(s): N17.9 - ACUTE KIDNEY FAILURE, UNSPECIFIED; N18.9 - CHRONIC KIDNEY DISEASE, UNSPECIFIED (3) COPD (chronic obstructive pulmonary disease) Assessment/Plan: NEBS Code(s): J44.9 - CHRONIC OBSTRUCTIVE PULMONARY DISEASE, UNSPECIFIED Qualifiers: COPD type: COPD with acute lower respiratory infection Qualified Code(s): J44.0 - Chronic obstructive pulmonary disease with acute lower respiratory infection (4) Diabetes mellitus Assessment/Plan: BGM WITH SS CONTINUE WITH LEVEMIR Code(s): E11.9 - TYPE 2 DIABETES MELLITUS WITHOUT COMPLICATIONS Qualifiers: Diabetes mellitus type: type 2 Diabetes mellitus complication status: with skin complications Diabetes mellitus complication detail: with dermatitis 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
[2017-08-07] MEDS: PANTOPRAZOLE 40 MG TABLET (FP) PO SCH (10:53)
[2017-08-07] MEDS: GABAPENTIN 300 MG CAPSULE (FP) PO SCH ×2 (10:53→21:56)
[2017-08-07] MEDS: CLOPIDOGREL BISULFATE 75 MG TABLET (FP) PO SCH (10:53)
[2017-08-07] MEDS: NYSTATIN POWDER 100,000 UNITS/GM - 15 GM TOPICAL POWDER TP SCH (10:53)
[2017-08-07] MEDS: TIOTROPIUM BROMIDE 18 MCG/INH (DEVICE W/ 5 CAPSULES) IH SCH (10:53)
[2017-08-07] MEDS: RIFAMPIN 300 MG CAPSULE PO SCH (10:53)
[2017-08-07] MEDS: PREGABALIN 75 MG CAPSULE PO SCH ×2 (10:54→21:56)
[2017-08-07] MEDS: METOPROLOL SUCCINATE 25 MG TAB.SR.24H (FP) PO SCH (10:54)
[2017-08-07] MEDS: TAMSULOSIN HCL 0.4 MG CAP.ER.24H (FP) PO SCH (10:54)
[2017-08-07] MEDS: FERROUS SO4 325 MG TABLET (FP) PO SCH ×2 (10:54→21:57)
[2017-08-07] MEDS: amLODIPine BESYLATE 5 MG TABLET (FP) PO SCH (10:54)
--- NOTE | 2017-08-07 11:32 | EKG ---
Test Reason : Blood Pressure : / mmHG Vent. Rate : 055 BPM Atrial Rate : 055 BPM P-R Int : 222 ms QRS Dur : 074 ms QT Int : 458 ms P-R-T Axes : 034 094 081 degrees QTc Int : 438 ms SINUS BRADYCARDIA WITH 1ST DEGREE A-V BLOCK RIGHTWARD AXIS POSSIBLE INFERIOR INFARCT , AGE UNDETERMINED ABNORMAL ECG WHEN COMPARED WITH ECG OF 10-MAY-2017 23:31, NO SIGNIFICANT CHANGE WAS FOUND Confirmed by GLADIS PRITCHARD MD ([id number]) on 08/07/2017 11:31:49 AM Referred By: Confirmed By:GLADIS PRITCHARD MD
[2017-08-07 11:44] LABS: PLATELET COUNT 64 K/MM3 (134-434)
[2017-08-07] MEDS: DOCUSATE SODIUM 100 MG CAPSULE (FP) PO SCH ×2 (14:55→21:56)
[2017-08-07] MEDS ORDERED: DEXTROSE 50%-WATER 25 GM/50 ML DISP.SYRIN ONE (17:00)
[2017-08-07] MEDS ORDERED: morphine CARPU-JECT 10 MG/1 ML DISP.SYRIN IVPUSH PRN (17:13)
[2017-08-07] MEDS ORDERED: DEXTROSE 50%-WATER 25 GM/50 ML DISP.SYRIN IVPUSH ONE (17:13)
--- NOTE | 2017-08-07 17:15 | HOSP ---
Physical Examination Vital Signs: Vital Signs Temperature 98.2 F 08/07/17 14:15 Pulse Rate 52 L 08/07/17 15:07 Respiratory Rate 18 08/07/17 15:07 Blood Pressure 159/76 08/07/17 15:07 O2 Sat by Pulse Oximetry (%) 96 08/07/17 14:00 Labs: CBC, BMP 08/07/17 07:24 08/07/17 07:24 Hospitalist Encounter Assessment: PT found cold, clammy, unresponsive, [place] juice and D 50 given bgm 28 now 150. Pt responsive, dose not remember what happened Will dc evening dose of levemir, changed to daily Continue BGM monitoring
[2017-08-07] MEDS: PRAMIPEXOLE DIHYDROCHLORIDE 0.5 MG TABLET PO SCH (21:56)
[2017-08-07] MEDS: LIDOCAINE PATCH REMOVAL MC SCH (21:57)
[2017-08-08] MEDS: DOCUSATE SODIUM 100 MG CAPSULE (FP) PO SCH ×3 (06:57→22:07)
[2017-08-08] MEDS ORDERED: INSULIN DETEMIR 100 UNITS/ML MDV SQ SCH (07:00)
[2017-08-08] MEDS: CLOPIDOGREL BISULFATE 75 MG TABLET (FP) PO SCH (09:33)
[2017-08-08] MEDS: FERROUS SO4 325 MG TABLET (FP) PO SCH ×2 (09:33→22:07)
[2017-08-08] MEDS: GABAPENTIN 300 MG CAPSULE (FP) PO SCH (09:33)
[2017-08-08] MEDS: PREGABALIN 75 MG CAPSULE PO SCH ×2 (09:33→22:07)
[2017-08-08] MEDS: PANTOPRAZOLE 40 MG TABLET (FP) PO SCH (09:33)
[2017-08-08] MEDS: amLODIPine BESYLATE 5 MG TABLET (FP) PO SCH (09:33)
[2017-08-08] MEDS: TAMSULOSIN HCL 0.4 MG CAP.ER.24H (FP) PO SCH (09:33)
[2017-08-08] MEDS: RIFAMPIN 300 MG CAPSULE PO SCH (09:34)
[2017-08-08] MEDS: LIDOCAINE 5% TOPICAL PATCH TP SCH (09:34)
[2017-08-08] MEDS: TIOTROPIUM BROMIDE 18 MCG/INH (DEVICE W/ 5 CAPSULES) IH SCH (09:35)
[2017-08-08] MEDS: METOPROLOL SUCCINATE 25 MG TAB.SR.24H (FP) PO SCH (09:37)
--- NOTE | 2017-08-08 10:59 | PN ---
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 ORTHOPEDIC ASSISTANT today in morning for hypoglycemia morning dose of levemir held patient is awake and eating bgm is better - Current Medication List Current Medications: Active Medications Albuterol Sulfate (Ventolin 0.083% Nebulizer Soln -) 1 amp NEB Q6H PRN PRN Reason: WHEEZING Amlodipine Besylate (Norvasc -) 5 mg PO DAILY [facility] Last Admin: 08/08/17 09:33 Dose: Not Given Clopidogrel Bisulfate (Plavix -) 75 mg PO DAILY [facility] Last Admin: 08/08/17 09:33 Dose: 75 mg Docusate Sodium (Colace -) 100 mg PO TID [facility] Last Admin: 08/08/17 06:57 Dose: 100 mg Ferrous Sulfate (Feosol -) 325 mg PO BID [facility] Last Admin: 08/08/17 09:33 Dose: 325 mg Gabapentin (Neurontin -) 300 mg PO BID [facility] Last Admin: 08/08/17 09:33 Dose: 300 mg Lidocaine (Lidoderm Patch -) 1 patch TP DAILY [facility] Last Admin: 08/08/17 09:34 Dose: 1 patch Metoprolol Succinate (Toprol Xl -) 25 mg PO DAILY [facility] Last Admin: 08/08/17 09:37 Dose: Not Given Miscellaneous (Lidoderm Patch Removal) 1 each MC DAILY@2200 [facility] Last Admin: 08/07/17 21:57 Dose: 1 each Morphine Sulfate (Morphine Injection -) 2 mg IVPUSH Q6H PRN PRN Reason: PAIN Nystatin (Nystop Powder -) 1 applic TP DAILY [facility] Last Admin: 08/07/17 10:53 Dose: 1 applic Pantoprazole Sodium (Protonix -) 40 mg PO DAILY [facility] Last Admin: 08/08/17 09:33 Dose: 40 mg Pramipexole Dihydrochloride (Mirapex -) 0.5 mg PO HS [facility] Last Admin: 08/07/17 21:56 Dose: 0.5 mg Pregabalin (Lyrica -) 75 mg PO BID [facility] Last Admin: 08/08/17 09:33 Dose: 75 mg Rifampin (Rifadin -) 300 mg PO DAILY [facility] Last Admin: 08/08/17 09:34 Dose: 300 mg Tamsulosin HCl (Flomax -) 0.4 mg PO DAILY@0830 [facility] Last Admin: 08/08/17 09:33 Dose: 0.4 mg Tiotropium [place] (Spiriva -) 1 puff IH DAILY [facility] Last Admin: 08/08/17 09:35 Dose: 1 puff - Objective Vital Signs: Vital Signs Temperature 99.0 F 08/08/17 06:00 Pulse Rate 73 08/08/17 06:00 Respiratory Rate 20 08/08/17 06:00 Blood Pressure 106/56 08/08/17 06:00 O2 Sat by Pulse Oximetry (%) 92 L 08/07/17 22:00 Constitutional: Yes: Calm Cardiovascular: Yes: Regular Rate and Rhythm, S1, S2 Respiratory: Yes: CTA Bilaterally Gastrointestinal: Yes: Normal Bowel Sounds, Soft Neurological: Yes: Alert, Oriented Labs: CBC, BMP 08/07/17 07:24 08/07/17 07:24 Problem List - Problems (1) Diabetes mellitus Assessment/Plan: hold levemir given hypoglycemia [place] [id number] bgm monitoring endo evaluation Code(s): E11.9 - TYPE 2 DIABETES MELLITUS WITHOUT COMPLICATIONS Qualifiers: Diabetes mellitus type: type 2 Diabetes mellitus complication status: with skin complications Diabetes mellitus complication detail: with dermatitis Diabetes mellitus shelter insulin use: 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 use 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 Qualified Code(s): E11.620 - Type 2 diabetes mellitus with diabetic dermatitis (2) JESÚS (acute kidney injury) Assessment/Plan: renal evaluation Code(s): N17.9 - ACUTE KIDNEY FAILURE, UNSPECIFIED (3) Anemia Assessment/Plan: iron panel on po supplements Code(s): D64.9 - ANEMIA, UNSPECIFIED Qualifiers: Anemia type: unspecified type Qualified Code(s): D64.9 - Anemia, unspecified (4) COPD (chronic obstructive pulmonary disease) Assessment/Plan: spiriva Code(s): J44.9 - CHRONIC OBSTRUCTIVE PULMONARY DISEASE, UNSPECIFIED Qualifiers: COPD type: COPD with acute lower respiratory infection Qualified Code(s): J44.0 - Chronic obstructive pulmonary disease with acute lower respiratory infection
--- NOTE | 2017-08-08 14:53 | CONSULT ---
Consult Consult Specialty:: Endocrinology Referred by:: Kristyn Jacobs MD Reason for Consultation:: Hypoglycemia - History of Present Illness Chief Complaint: Abd pain History of Present Illness: This is a 66 y/o M with history of HTN, T2DM for 10 years, on Insulin for about 4 years, CVA with residual left sided weakness, COPD (on 3L O2 at home), gout, renal insufficiency, chronic lower extremity wounds (refused amputation and SNF placement, s/p PICC placement with abx and removal), and kidney stones presented to ED with c/o left sided back/abdominal pain for three days. The pain was described as constant and severe.. Denied blood or pain with urination. Denied associated nausea, vomiting, fevers and chills. Denies chest pain, shortness of breath. Pt currently feels better but still has left flank/ back pain. Pt has nocturia around 7 times per night. Pt developed hypoglycemia yesterday and is referred for evaluation. Pt was last seen in the office in July when he was on Levemir 6 units daily and Tradjenta 5mg QD. FS at home 120 to 150 in the morning and 110 to 130 in the evening. 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: CVA Cardio/Vascular: Yes: HTN, Hyperlipdemia, Other (PAD) Pulmonary: Yes: Asthma, COPD, O2 Dependent, Pulmonary Fibrosis, Sleep Apnea Hepatobiliary: Yes: Cholecystitis Renal/: Yes: Renal Inusuff Musculoskeletal: Yes: Other (chronic foot ulcers) Endocrine: Yes: Diabetes Mellitus - Past Surgical History Past Surgical History: Yes: Amputation (second toe left foot), Appendectomy, Bypass (leg), Carotid Endarterectomy (right), Cholecystectomy, Tonsillectomy - Alcohol/Substance Use Hx Alcohol Use: No Number of Drinks Daily: 2 (beer, cr on weekend) History of Substance Use: reports: None - Smoking History Smoking history: Never smoked Have you smoked in the past 12 months: No Aproximately how many cigarettes per day: 10 If you are a former smoker, when did you quit?: May 2014 - Social History Usual Living Arrangement: Alone ADL: Independent (uses a walker and wheelchair, in process of getting a scooter) 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 ,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 History of Recent Travel: No Home Medications - Allergies Allergies/Adverse Reactions: Allergies Allergy/AdvReac Type Severity Reaction Status Date / Time No Known Drug Allergies Allergy Verified 08/06/17 13:20 - Home Medications Home Medications: Ambulatory Orders Nystatin Powder [Nystop Powder -] 60 gm TP DAILY 05/11/16 Tamsulosin HCl [Flomax -] 0.4 mg PO DAILY 05/11/16 Trazodone HCl [Desyrel -] 50 mg PO HS 05/11/16 Metoprolol Succinate [Toprol XL -] 25 mg PO DAILY tab.sr.24h 07/19/16 Oxycodone HCl [Roxicodone -] 5 mg PO Q8H PRN #30 tablet MDD 3 07/19/16 Memantine HCl [Namenda Xr] 7 mg PO DAILY 07/22/16 Aclidinium [place] [Tudorza -] 1 puff IH BID inhaler 10/29/16 Amlodipine Besylate [Norvasc -] 5 mg PO DAILY tablet 10/29/16 Clopidogrel Bisulfate [Plavix -] 75 mg PO DAILY tablet 10/29/16 Ferrous Sulfate 325 mg PO BID 01/25/17 Pantoprazole Sodium [Protonix] 40 mg PO DAILY 01/25/17 Furosemide [Lasix] 20 mg PO DAILY #0 mg 03/08/17 Ergocalciferol (Vitamin D2) [Vitamin D2] 50,000 unit PO WEEKLY 05/11/17 Pregabalin [Lyrica -] 150 mg PO BID 05/11/17 Albuterol 0.083% Nebulizer Jenna [Ventolin 0.083% Nebulizer Soln -] 1 neb NEB Q6H PRN #120 vial 05/19/17 Gabapentin 300 mg PO BID #0 tab 05/19/17 Insulin (Levemir) [Levemir Flexpen -] 18 units SQ BID #1 units 05/19/17 Doxycycline Hyclate 100 mg PO DAILY 08/06/17 Oxybutynin Chloride [Ditropan Xl] 5 mg PO DAILY 08/06/17 Pramipexole Dihydrochloride [Mirapex -] 0.5 mg PO HS 08/06/17 Rifampin [Rifadin -] 300 mg PO DAILY 08/06/17 Family Disease History - Family Disease History Family Disease History: Diabetes: Mother (htn), Other: Father (htn), Mother Review of Systems - Review of Systems Constitutional: reports: Malaise Eyes: reports: Other (Poor vision, uses glasses) HENT: reports: No Symptoms Neck: reports: No Symptoms Cardiovascular: reports: No Symptoms Respiratory: reports: No Symptoms Gastrointestinal: reports: Abdominal Pain (left sided with back pain) Genitourinary: reports: Other (Nocturia x 7) Musculoskeletal: reports: Back Pain Endocrine: reports: No Symptoms Physical Exam Vital Signs: Vital Signs Temperature 98.4 F 08/08/17 13:05 Pulse Rate 59 L 08/08/17 13:05 Respiratory Rate 16 08/08/17 13:05 Blood Pressure 85/54 08/08/17 13:05 O2 Sat by Pulse Oximetry (%) 92 L 08/07/17 22:00 Constitutional: Yes: No Distress, Calm Eyes: Yes: Conjunctiva Clear, EOM Intact HENT: Yes: Atraumatic, Normocephalic Neck: Yes: Supple, Trachea Midline Cardiovascular: Yes: Regular Rate and Rhythm Respiratory: Yes: Regular, CTA Bilaterally Gastrointestinal: Yes: Normal Bowel Sounds, Soft Extremities: Yes: Amputation (left 2nd toe), Other (dressing both feet Stasis changes of both legs) Edema: No Neurological: Yes: Alert, Oriented Labs: CBC, BMP 08/07/17 07:24 08/07/17 07:24 Imaging - Results Chest X-ray: Report Reviewed Cat Scan: Report Reviewed Assessment/Plan AP; Abdominal/back pain T2DM Hypoglycemic episode Foot ulcer COPD D/C Levemir. Pt has not been taking it at home for >a month as his blood sugar has been good. BGM QACHS Novolog SS coverage Will start Auguvia 25 if blood sugar srart rising. Flomax Rifampin Pregablin D/c Gabapentin as pt is on Pregablin. Not taking Gabapentin at home
[2017-08-08] MEDS: NYSTATIN POWDER 100,000 UNITS/GM - 15 GM TOPICAL POWDER TP SCH (15:57)
[2017-08-08] MEDS: INSULIN SLIDING SCALE (NOVOLOG) 1 VIAL SQ SCH ×2 (17:07→21:40)
--- NOTE | 2017-08-08 17:19 | CON.NEP ---
Consult Consult Specialty:: Nephrology Referred by:: Dr. Simons Reason for Consultation:: JESÚS on CKD - History of Present Illness Chief Complaint: Flank/Back Pain History of Present Illness: This is a 66 year old gentleman with PMhx of CKD Stage 4 (baseline Cr 1.3-1.5), DM Type 2, CVA, Gout, LE wounds, Hx of osteomylitis presented with left sided flank pain and abdominal pain and found to have JESÚS/Progressive CKD with Cr of 1.8. Pt is on low dose Lasix at home. Pt has infrequent symptoms of urinary retention. No N/V/D. Reports good oral intake. Denies any NSAID use. Home Medications Medication Instructions Recorded Nystatin Powder [Nystop Powder -] 60 gm TP DAILY 05/11/16 Tamsulosin HCl [Flomax -] 0.4 mg PO DAILY 05/11/16 Trazodone HCl [Desyrel -] 50 mg PO HS 05/11/16 Metoprolol Succinate [Toprol XL -] 25 mg PO DAILY tab.sr.24h 07/19/16 Oxycodone HCl [Roxicodone -] 5 mg PO Q8H PRN #30 tablet MDD 3 07/19/16 Memantine HCl [Namenda Xr] 7 mg PO DAILY 07/22/16 Aclidinium [place] [Tudorza -] 1 puff IH BID inhaler 10/29/16 Amlodipine Besylate [Norvasc -] 5 mg PO DAILY tablet 10/29/16 Clopidogrel Bisulfate [Plavix -] 75 mg PO DAILY tablet 10/29/16 Ferrous Sulfate 325 mg PO BID 01/25/17 Pantoprazole Sodium [Protonix] 40 mg PO DAILY 01/25/17 Furosemide [Lasix] 20 mg PO DAILY #0 mg 03/08/17 Ergocalciferol (Vitamin D2) 50,000 unit PO WEEKLY 05/11/17 [Vitamin D2] Pregabalin [Lyrica -] 150 mg PO BID 05/11/17 Albuterol 0.083% Nebulizer Jenna 1 neb NEB Q6H PRN #120 vial 05/19/17 [Ventolin 0.083% Nebulizer Soln -] Gabapentin 300 mg PO BID #0 tab 05/19/17 Insulin (Levemir) [Levemir Flexpen 18 units SQ BID #1 units 05/19/17 -] Doxycycline Hyclate 100 mg PO DAILY 08/06/17 Oxybutynin Chloride [Ditropan Xl] 5 mg PO DAILY 08/06/17 Pramipexole Dihydrochloride 0.5 mg PO HS 08/06/17 [Mirapex -] Rifampin [Rifadin -] 300 mg PO DAILY 08/06/17 - History Source History Provided By: Patient Limitations to Obtaining History: No Limitations - Past Medical History 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 Cardio/Vascular: Yes: HTN, Hyperlipdemia, Other (PAD) Pulmonary: Yes: Asthma, COPD, O2 Dependent, Pulmonary Fibrosis, Sleep Apnea Hepatobiliary: Yes: Cholecystitis Renal/: Yes: Renal Inusuff Musculoskeletal: Yes: Other (chronic foot ulcers) Endocrine: Yes: Diabetes Mellitus - Past Surgical History Past Surgical History: Yes: Amputation (second toe left foot), Appendectomy, Bypass (leg), Carotid Endarterectomy (right), Cholecystectomy, Tonsillectomy - Alcohol/Substance Use Hx Alcohol Use: No Number of Drinks Daily: 2 (beer, cr on weekend) History of Substance Use: reports: None - Smoking History Smoking history: Never smoked Have you smoked in the past 12 months: No Aproximately how many cigarettes per day: 10 If you are a former smoker, when did you quit?: May 2014 - Social History Usual Living Arrangement: Alone ADL: Independent (uses a walker and wheelchair, in process of getting a scooter) 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 ,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 History of Recent Travel: No Home Medications - Allergies Allergies/Adverse Reactions: Allergies Allergy/AdvReac Type Severity Reaction Status Date / Time No Known Drug Allergies Allergy Verified 08/06/17 13:20 - Home Medications Home Medications: Ambulatory Orders Nystatin Powder [Nystop Powder -] 60 gm TP DAILY 05/11/16 Tamsulosin HCl [Flomax -] 0.4 mg PO DAILY 05/11/16 Trazodone HCl [Desyrel -] 50 mg PO HS 05/11/16 Metoprolol Succinate [Toprol XL -] 25 mg PO DAILY tab.sr.24h 07/19/16 Oxycodone HCl [Roxicodone -] 5 mg PO Q8H PRN #30 tablet MDD 3 07/19/16 Memantine HCl [Namenda Xr] 7 mg PO DAILY 07/22/16 Aclidinium [place] [Tudorza -] 1 puff IH BID inhaler 10/29/16 Amlodipine Besylate [Norvasc -] 5 mg PO DAILY tablet 10/29/16 Clopidogrel Bisulfate [Plavix -] 75 mg PO DAILY tablet 10/29/16 Ferrous Sulfate 325 mg PO BID 01/25/17 Pantoprazole Sodium [Protonix] 40 mg PO DAILY 01/25/17 Furosemide [Lasix] 20 mg PO DAILY #0 mg 03/08/17 Ergocalciferol (Vitamin D2) [Vitamin D2] 50,000 unit PO WEEKLY 05/11/17 Pregabalin [Lyrica -] 150 mg PO BID 05/11/17 Albuterol 0.083% Nebulizer Jenna [Ventolin 0.083% Nebulizer Soln -] 1 neb NEB Q6H PRN #120 vial 05/19/17 Gabapentin 300 mg PO BID #0 tab 05/19/17 Insulin (Levemir) [Levemir Flexpen -] 18 units SQ BID #1 units 05/19/17 Doxycycline Hyclate 100 mg PO DAILY 08/06/17 Oxybutynin Chloride [Ditropan Xl] 5 mg PO DAILY 08/06/17 Pramipexole Dihydrochloride [Mirapex -] 0.5 mg PO HS 08/06/17 Rifampin [Rifadin -] 300 mg PO DAILY 08/06/17 Family Disease History - Family Disease History Family Disease History: Diabetes: Mother (htn), Other: Father (htn), Mother Review of Systems - Review of Systems Constitutional: reports: No Symptoms Eyes: reports: No Symptoms HENT: reports: No Symptoms Neck: reports: No Symptoms Cardiovascular: reports: No Symptoms Respiratory: reports: No Symptoms Gastrointestinal: reports: No Symptoms Genitourinary: reports: No Symptoms Musculoskeletal: reports: Back Pain Neurological: reports: No Symptoms Nephrology Consult - Height Height: 5 ft 7 in - Weight Weight: 75.115 kg - BMI Body Mass Index (BMI): 25.9 - Lab Results CBC,BMP: CBC, BMP 08/07/17 07:24 08/07/17 07:24 Anion Gap: Anion Gap Anion Gap 9 (8-16) 08/07/17 07:24 - Imaging X-ray: Report Reviewed Cat Scan: Report Reviewed - Physical Examination Vital Signs: Vital Signs Temperature 98.4 F 01/08/18 13:05 Pulse Rate 59 L 08/08/17 13:05 Respiratory Rate 16 08/08/17 13:05 Blood Pressure 85/54 08/08/17 13:05 O2 Sat by Pulse Oximetry (%) 92 L 08/07/17 22:00 Constitutional: Yes: Well Nourished, No Distress, Calm Eyes: Yes: Conjunctiva Clear HENT: Yes: Atraumatic, Normocephalic Neck: Yes: Supple Cardiovascular: Yes: Regular Rate and Rhythm. No: JVD, Murmur, Rub Respiratory: Yes: Regular, CTA Bilaterally Gastrointestinal: Yes: Normal Bowel Sounds, Soft. No: Tenderness Renal/: No: Anuria, Sweeney Present Extremities: No: Cold, Cool, Cyanosis Edema: No Neurological: Yes: Alert, Oriented Assessment/Plan 66 year old gentleman with PMhx of CKD Stage 4 (baseline Cr 1.3-1.5), DM Type 2 , CVA, Gout, LE wounds, Hx of osteomylitis presented with left sided flank pain and abdominal pain and found to have JESÚS/Progressive CKD with Cr of 1.8. 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
[2017-08-08] MEDS: SODIUM CHLORIDE 1,000 ML IV SCH (18:08)
[2017-08-08 20:01] LABS: URINE APPEARANCE CLEAR; URINE BILIRUBIN NEGATIVE (NEGATIVE); URINE BLOOD NEGATIVE (NEGATIVE); URINE COLOR YELLOW; URINE GLUCOSE (UA) NEGATIVE (NEGATIVE); URINE KETONE NEGATIVE (NEGATIVE); URINE LEUK ESTERASE NEGATIVE (NEGATIVE); URINE NITRITE NEGATIVE (NEGATIVE); URINE PROTEIN NEGATIVE (NEGATIVE); URINE UROBILINOGEN NEGATIVE mg/dL (0.2-1.0)
[2017-08-08] MEDS ORDERED: morphine SULFATE 4 MG/ML VIAL IVPUSH PRN (20:32)
[2017-08-08] MEDS: LIDOCAINE PATCH REMOVAL MC SCH (22:07)
[2017-08-08] MEDS: PRAMIPEXOLE DIHYDROCHLORIDE 0.5 MG TABLET PO SCH (22:07)
[2017-08-09] MEDS: DOCUSATE SODIUM 100 MG CAPSULE (FP) PO SCH ×4 (05:04→21:40)
[2017-08-09] MEDS: SODIUM CHLORIDE 1,000 ML IV SCH (05:08)
[2017-08-09] MEDS: INSULIN SLIDING SCALE (NOVOLOG) 1 VIAL SQ SCH ×4 (05:59→21:39)
[2017-08-09 07:27] LABS: ALBUMIN 2.1 g/dl (3.4-5.0); ANION GAP 6 (8-16); BILIRUBIN,TOTAL 0.4 mg/dL (0.2-1.0); BLOOD UREA NITROGEN 29 mg/dL (7-18); CALCIUM 7.8 mg/dL (8.5-10.1); CHLORIDE 108 mmol/L (98-107); CO2 26 mmol/L (21-32); CREATININE 1.7 mg/dL (0.7-1.3); GLUCOSE,RANDOM 128 mg/dL (74-106); PHOSPHOROUS 2.8 mg/dL (2.5-4.9); POTASSIUM 4.5 mmol/L (3.5-5.1); SGOT/AST 24 U/L (15-37); SGPT/ALT 19 U/L (12-78); SODIUM 140 mmol/L (136-145); TOT PROT 5.8 g/dl (6.4-8.2)
[2017-08-09 07:30] LABS: ALK PHOS 170 U/L (45-117)
--- NOTE | 2017-08-09 09:32 | PN ---
Progress Note, Physician History of Present Illness: DENIES LEFT FLANK PAIN NO N/V - Current Medication List Current Medications: Active Medications Albuterol Sulfate (Ventolin 0.083% Nebulizer Soln -) 1 amp NEB RQID [facility] Amlodipine Besylate (Norvasc -) 5 mg PO DAILY [facility] Last Admin: 08/08/17 09:33 Dose: Not Given Clopidogrel Bisulfate (Plavix -) 75 mg PO DAILY [facility] Last Admin: 08/08/17 09:33 Dose: 75 mg Docusate Sodium (Colace -) 100 mg PO TID [facility] Last Admin: 08/09/17 05:04 Dose: 100 mg Ferrous Sulfate (Feosol -) 325 mg PO BID [facility] Last Admin: 08/08/17 22:07 Dose: 325 mg Sodium Chloride (Normal Saline -) 1,000 mls @ 100 mls/hr IV ASDIR [facility] Last Admin: 08/09/17 05:08 Dose: 100 mls/hr Insulin Aspart (Novolog Vial Sliding Scale -) 1 vial SQ TIDAC [facility] PRN Reason: Protocol Last Admin: 08/09/17 05:59 Dose: Not Given Insulin Aspart (Novolog Vial Sliding Scale -) 1 vial SQ [facility] PRN Reason: Protocol Last Admin: 08/08/17 21:40 Dose: Not Given Lidocaine (Lidoderm Patch -) 1 patch TP DAILY [facility] Last Admin: 08/08/17 09:34 Dose: 1 patch Metoprolol Succinate (Toprol Xl -) 25 mg PO DAILY [facility] Last Admin: 08/08/17 09:37 Dose: Not Given Miscellaneous (Lidoderm Patch Removal) 1 each MC DAILY@2200 [facility] Last Admin: 08/08/17 22:07 Dose: 1 each Morphine Sulfate (Morphine Sulfate) 2 mg IVPUSH Q6H PRN PRN Reason: PAIN Last Admin: 08/08/17 20:49 Dose: 2 mg Nystatin (Nystop Powder -) 1 applic TP DAILY [facility] Last Admin: 08/08/17 15:57 Dose: 1 applic Pantoprazole Sodium (Protonix -) 40 mg PO DAILY [facility] Last Admin: 08/08/17 09:33 Dose: 40 mg Pramipexole Dihydrochloride (Mirapex -) 0.5 mg PO [facility] Last Admin: 08/08/17 22:07 Dose: 0.5 mg Pregabalin (Lyrica -) 75 mg PO BID [facility] Last Admin: 08/08/17 22:07 Dose: 75 mg Rifampin (Rifadin -) 300 mg PO DAILY [facility] Last Admin: 08/08/17 09:34 Dose: 300 mg Tamsulosin HCl (Flomax -) 0.4 mg PO DAILY@0830 [facility] Last Admin: 08/08/17 09:33 Dose: 0.4 mg Tiotropium [place] (Spiriva -) 1 puff IH DAILY [facility] Last Admin: 08/08/17 09:35 Dose: 1 puff Zinc Acetate/Diphenhydramine (Benadryl 2% Cream) 1 applic TP DAILY [facility] Last Admin: 08/08/17 22:08 Dose: 1 applic - Objective Vital Signs: Vital Signs Temperature 97.6 F 08/09/17 05:41 Pulse Rate 67 08/09/17 05:41 Respiratory Rate 18 08/09/17 05:41 Blood Pressure 157/98 08/09/17 05:41 O2 Sat by Pulse Oximetry (%) 97 08/08/17 21:00 Cardiovascular: Yes: Regular Rate and Rhythm Respiratory: Yes: Regular, CTA Bilaterally Gastrointestinal: Yes: Normal Bowel Sounds, Soft. No: Tenderness Labs: CBC, BMP 08/07/17 07:24 08/09/17 06:30 Problem List - Problems (1) Flank pain Assessment/Plan: RESOLVED NO OBVIOUS SOURCE ON CT XRAY OF RIBS PAIN MEDS FOLLOW LABS Code(s): R10.9 - UNSPECIFIED ABDOMINAL PAIN (2) Acute kidney injury superimposed on CKD Assessment/Plan: IMPROVED DC IVF MONITOR LABS HOLD LASIX Code(s): N17.9 - ACUTE KIDNEY FAILURE, UNSPECIFIED; N18.9 - CHRONIC KIDNEY DISEASE, UNSPECIFIED (3) COPD (chronic obstructive pulmonary disease) Assessment/Plan: NEBS Code(s): J44.9 - CHRONIC OBSTRUCTIVE PULMONARY DISEASE, UNSPECIFIED Qualifiers: COPD type: COPD with acute lower respiratory infection Qualified Code(s): J44.0 - Chronic obstructive pulmonary disease with acute lower respiratory infection (4) Diabetes mellitus Assessment/Plan: S/P HYPOGLYCEMIA--LEVEMIR ON HOLD BGM WITH SS ENDO Code(s): E11.9 - TYPE 2 DIABETES MELLITUS WITHOUT COMPLICATIONS Qualifiers: Diabetes mellitus type: type 2 Diabetes mellitus complication status: with skin complications Diabetes mellitus complication detail: with dermatitis 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
[2017-08-09] MEDS ORDERED: PT OWN MED DRAWER 7, Y5N ONE ×2 (10:13→10:16)
[2017-08-09] MEDS: RIFAMPIN 300 MG CAPSULE PO SCH (10:23)
[2017-08-09] MEDS: PREGABALIN 75 MG CAPSULE PO SCH ×2 (10:23→21:40)
[2017-08-09] MEDS: FERROUS SO4 325 MG TABLET (FP) PO SCH ×2 (10:23→21:40)
[2017-08-09] MEDS: amLODIPine BESYLATE 5 MG TABLET (FP) PO SCH (10:23)
[2017-08-09] MEDS: CLOPIDOGREL BISULFATE 75 MG TABLET (FP) PO SCH (10:23)
[2017-08-09] MEDS: TAMSULOSIN HCL 0.4 MG CAP.ER.24H (FP) PO SCH (10:23)
[2017-08-09] MEDS: LIDOCAINE 5% TOPICAL PATCH TP SCH (10:23)
[2017-08-09] MEDS: METOPROLOL SUCCINATE 25 MG TAB.SR.24H (FP) PO SCH (10:23)
[2017-08-09] MEDS: PANTOPRAZOLE 40 MG TABLET (FP) PO SCH (10:23)
[2017-08-09] MEDS: TIOTROPIUM BROMIDE 18 MCG/INH (DEVICE W/ 5 CAPSULES) IH SCH (10:25)
[2017-08-09] MEDS: NYSTATIN POWDER 100,000 UNITS/GM - 15 GM TOPICAL POWDER TP SCH (10:26)
[2017-08-09] MEDS: ALBUTEROL SO4 0.083% IH SOL 2.5 MG/3 ML VIAL.NEB. NEB SCH ×3 (10:40→20:08)
[2017-08-09] MEDS ORDERED: oxyCODONE HCL 5 MG TABLET PO ONE (13:45)
--- NOTE | 2017-08-09 14:24 | PN ---
Progress Note (short form) - Note Progress Note: Renal follow up for JESÚS on CKD Pt seen and examined at the bedside awake and alert complains of pain in his back and left flank no sob, chest pain, abd pain, N/V Vital Signs Temperature 97.6 F 08/09/17 10:00 Pulse Rate 68 08/09/17 10:00 Respiratory Rate 18 08/09/17 10:00 Blood Pressure 156/88 08/09/17 10:00 O2 Sat by Pulse Oximetry (%) 96 08/09/17 10:00 Intake & Output 08/06/17 08/07/17 08/08/17 08/09/17 23:59 23:59 23:59 23:59 Intake Total 70 1230 1350 Output Total 239 591 6878 Balance -830 710 75 Weight 73.936 kg 75.115 kg 75.115 kg NAD awake and alert trace crackles at lung bases soft NT/ND No LE edema CBC, BMP 08/07/17 07:24 08/09/17 06:30 Current Medications Albuterol Sulfate (Ventolin 0.083% Nebulizer Soln -) 1 amp NEB RQID [facility] Last Admin: 08/09/17 10:40 Dose: 1 amp Amlodipine Besylate (Norvasc -) 5 mg PO DAILY [facility] Last Admin: 08/09/17 10:23 Dose: 5 mg Clopidogrel Bisulfate (Plavix -) 75 mg PO DAILY [facility] Last Admin: 08/09/17 10:23 Dose: 75 mg Docusate Sodium (Colace -) 100 mg PO TID [facility] Last Admin: 08/09/17 14:04 Dose: Not Given Ferrous Sulfate (Feosol -) 325 mg PO BID [facility] Last Admin: 08/09/17 10:23 Dose: 325 mg Sodium Chloride (Normal Saline -) 1,000 mls @ 100 mls/hr IV ASDIR [facility] Last Admin: 08/09/17 05:08 Dose: 100 mls/hr Insulin Aspart (Novolog Vial Sliding Scale -) 1 vial SQ TIDAC [facility] PRN Reason: Protocol Last Admin: 08/09/17 12:32 Dose: Not Given Insulin Aspart (Novolog Vial Sliding Scale -) 1 vial SQ HS [facility] PRN Reason: Protocol Last Admin: 08/08/17 21:40 Dose: Not Given Lidocaine (Lidoderm Patch -) 1 patch TP DAILY [facility] Last Admin: 08/09/17 10:23 Dose: 1 patch Metoprolol Succinate (Toprol Xl -) 25 mg PO DAILY [facility] Last Admin: 08/09/17 10:23 Dose: 25 mg Miscellaneous (Lidoderm Patch Removal) 1 each MC DAILY@2200 [facility] Last Admin: 08/08/17 22:07 Dose: 1 each Nystatin (Nystop Powder -) 1 applic TP DAILY [facility] Last Admin: 08/09/17 10:26 Dose: 1 applic Pantoprazole Sodium (Protonix -) 40 mg PO DAILY [facility] Last Admin: 08/09/17 10:23 Dose: 40 mg Pramipexole Dihydrochloride (Mirapex -) 0.5 mg PO HS [facility] Last Admin: 08/08/17 22:07 Dose: 0.5 mg Pregabalin (Lyrica -) 75 mg PO BID [facility] Last Admin: 08/09/17 10:23 Dose: 75 mg Rifampin (Rifadin -) 300 mg PO DAILY [facility] Last Admin: 08/09/17 10:23 Dose: 300 mg Tamsulosin HCl (Flomax -) 0.4 mg PO DAILY@0830 [facility] Last Admin: 08/09/17 10:23 Dose: 0.4 mg Tiotropium [place] (Spiriva -) 1 puff IH DAILY [facility] Last Admin: 08/09/17 10:25 Dose: 1 puff Zinc Acetate/Diphenhydramine (Benadryl 2% Cream) 1 applic TP DAILY [facility] Last Admin: 08/09/17 10:26 Dose: 1 applic 66 year old gentleman with PMhx of CKD Stage 4 (baseline Cr 1.3-1.5), DM Type 2 , CVA, Gout, LE wounds, Hx of osteomylitis presented with left sided flank pain and abdominal pain and found to have JESÚS/Progressive CKD with Cr of 1.8. #Acute on Chronic Renal insufficiency etiology of JESÚS likely pre-renal injury given high BUN/Cr ratio and hx of diuretic use FeNa was 0.48% indicating preserved tubular function Cr slighly improved but BUN much improved can d/c IVF today and allow pt to hydrate orally trend BUN/Cr and electrolytes #Flank pain/Abd pain CT of Abd showed no stones or pathology continue pain control #Hypertension continue metoprolol and amlodpine BP high today, trend off IVF #Hematuria repeat UA showed no RBCs Thank you Will follow Deven Layton DO
--- NOTE | 2017-08-09 14:43 | PN ---
Progress Note (short form) - Note Progress Note: Feels better BGM acceptable today off all meds Vital Signs Period Temp Pulse Resp BP Sys/Cintron Pulse Ox Last 24 Hr 97.6 F-98.0 F 65-105 18-18 106-157/62-98 96-97 PE: AOX3 Neck: Supple, No JVD HEENT: EOMOI Lungs: CTQ CVS: S1S2 Abd: Benign Ext: No edema, stasis changes. 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 CMP Sodium 140 mmol/L (136-145) 08/09/17 06:30 Potassium 4.5 mmol/L (3.5-5.1) 08/09/17 06:30 Chloride 108 mmol/L (98-107) H 08/09/17 06:30 Carbon Dioxide 26 mmol/L (21-32) 08/09/17 06:30 Anion Gap 6 (8-16) L 08/09/17 06:30 BUN 29 mg/dL (7-18) H D 08/09/17 06:30 Creatinine 1.7 mg/dL (0.7-1.3) H 08/09/17 06:30 Creat Clearance w eGFR 40.53 (>60) 08/09/17 06:30 POC Glucometer 114 UNITS (80-120) 08/09/17 12:04 Random Glucose 128 mg/dL (74-106) H 08/09/17 06:30 Hemoglobin A1c % 6.1 % (4.8-6.0) H D 08/09/17 06:30 Calcium 7.8 mg/dL (8.5-10.1) L 08/09/17 06:30 Phosphorus 2.8 mg/dL (2.5-4.9) D 08/09/17 06:30 Magnesium 2.0 mg/dL (1.8-2.4) 08/09/17 06:30 Ferritin 174.577 ng/ml (16.4-293.9) 08/09/17 06:30 Total Bilirubin 0.4 mg/dL (0.2-1.0) D 08/09/17 06:30 AST 24 U/L (15-37) 08/09/17 06:30 ALT 19 U/L (12-78) 08/09/17 06:30 Alkaline Phosphatase 170 U/L (45-117) H D 08/09/17 06:30 Total Protein 5.8 g/dl (6.4-8.2) L 08/09/17 06:30 Albumin 2.1 g/dl (3.4-5.0) L D 08/09/17 06:30 Lipase 220 U/L (73-393) 08/06/17 13:12 Current Medications Generic Name Dose Route Start Last Admin Trade Name Freq PRN Reason Stop Dose Admin Albuterol Sulfate 1 amp 08/09/17 12:00 08/09/17 10:40 Ventolin 0.083% Nebulizer Soln - NEB 1 amp RQID [facility] Administration Amlodipine Besylate 5 mg 08/07/17 10:00 08/09/17 10:23 Norvasc - PO 5 mg DAILY [facility] Administration Clopidogrel Bisulfate 75 mg 08/07/17 10:00 08/09/17 10:23 Plavix - PO 75 mg DAILY [facility] Administration Docusate Sodium 100 mg 08/07/17 14:00 08/09/17 14:04 Colace - PO Not Given TID [facility] Ferrous Sulfate 325 mg 08/07/17 10:00 08/09/17 10:23 Feosol - PO 325 mg BID [facility] Administration Insulin Aspart 1 vial 08/08/17 16:30 08/09/17 12:32 Novolog Vial Sliding Scale - SQ Not Given TIDAC [facility] Protocol Insulin Aspart 1 vial 08/08/17 22:00 08/08/17 21:40 Novolog Vial Sliding Scale - SQ Not Given HS [facility] Protocol Lidocaine 1 patch 08/08/17 10:00 08/09/17 10:23 Lidoderm Patch - TP 1 patch DAILY [facility] Administration Metoprolol Succinate 25 mg 08/07/17 10:00 08/09/17 10:23 Toprol Xl - PO 25 mg DAILY [facility] Administration Miscellaneous 1 each 08/07/17 22:00 08/08/17 22:07 Lidoderm Patch Removal MC 1 each DAILY@2200 [facility] Administration Nystatin 1 applic 08/07/17 10:00 08/09/17 10:26 Nystop Powder - TP 1 applic DAILY [facility] Administration Pantoprazole Sodium 40 mg 08/07/17 10:00 08/09/17 10:23 Protonix - PO 40 mg DAILY [facility] Administration Pramipexole Dihydrochloride 0.5 mg 08/07/17 22:00 08/08/17 22:07 Mirapex - PO 0.5 mg HS [facility] Administration Pregabalin 75 mg 08/07/17 10:00 08/09/17 10:23 Lyrica - PO 75 mg BID [facility] Administration Rifampin 300 mg 08/07/17 10:00 08/09/17 10:23 Rifadin - PO 300 mg DAILY [facility] Administration Tamsulosin HCl 0.4 mg 08/07/17 08:30 08/09/17 10:23 Flomax - PO 0.4 mg DAILY@0830 [facility] Administration Tiotropium [place] 1 puff 08/07/17 10:00 08/09/17 10:25 Spiriva - IH 1 puff DAILY [facility] Administration Zinc Acetate/Diphenhydramine 1 applic 08/08/17 21:30 08/09/17 10:26 Benadryl 2% Cream TP 1 applic DAILY [facility] Administration AP; Abdominal/back pain T2DM Hypoglycemic episode Foot ulcer COPD Off Levemir. Pt has not been taking it at home for >a month as his blood sugar has been good. BGM QACHS Novolog SS coverage Will start Auguvia 25 if blood sugar srart rising. Flomax Rifampin Pregablin D/c Gabapentin as pt is on Pregablin. Not taking Gabapentin at home
[2017-08-09] MEDS: PRAMIPEXOLE DIHYDROCHLORIDE 0.5 MG TABLET PO SCH (21:40)
[2017-08-09] MEDS: LIDOCAINE PATCH REMOVAL MC SCH (21:41)
[2017-08-10] MEDS: DOCUSATE SODIUM 100 MG CAPSULE (FP) PO SCH ×3 (05:42→22:38)
[2017-08-10] MEDS: INSULIN SLIDING SCALE (NOVOLOG) 1 VIAL SQ SCH ×4 (05:59→22:39)
[2017-08-10 06:06] LABS: SERUM IRON SATURATION 16 % (15-55); TOTAL IRON BINDING CAPACITY 165 ug/dL (250-450); UIBC 138 ug/dL (111-343)
[2017-08-10] MEDS: ALBUTEROL SO4 0.083% IH SOL 2.5 MG/3 ML VIAL.NEB. NEB SCH ×4 (08:30→21:25)
[2017-08-10] MEDS ORDERED: PT OWN MED DRAWER 7, Y5N ONE (09:10)
[2017-08-10] MEDS: TAMSULOSIN HCL 0.4 MG CAP.ER.24H (FP) PO SCH (09:18)
[2017-08-10] MEDS: NYSTATIN POWDER 100,000 UNITS/GM - 15 GM TOPICAL POWDER TP SCH (09:20)
[2017-08-10] MEDS: PREGABALIN 75 MG CAPSULE PO SCH ×2 (09:21→22:38)
[2017-08-10] MEDS: METOPROLOL SUCCINATE 25 MG TAB.SR.24H (FP) PO SCH (09:21)
[2017-08-10] MEDS: FERROUS SO4 325 MG TABLET (FP) PO SCH ×2 (09:21→22:38)
[2017-08-10] MEDS: PANTOPRAZOLE 40 MG TABLET (FP) PO SCH (09:21)
[2017-08-10] MEDS: RIFAMPIN 300 MG CAPSULE PO SCH (09:21)
[2017-08-10] MEDS: TIOTROPIUM BROMIDE 18 MCG/INH (DEVICE W/ 5 CAPSULES) IH SCH (09:21)
[2017-08-10] MEDS: amLODIPine BESYLATE 5 MG TABLET (FP) PO SCH (09:21)
[2017-08-10] MEDS: CLOPIDOGREL BISULFATE 75 MG TABLET (FP) PO SCH (09:21)
[2017-08-10 09:22] LABS: CHLORIDE 105 mmol/L (98-107); POTASSIUM 4.5 mmol/L (3.5-5.1); SODIUM 138 mmol/L (136-145)
[2017-08-10] MEDS: LIDOCAINE 5% TOPICAL PATCH TP SCH (09:22)
[2017-08-10 09:40] LABS: ANION GAP 8 (8-16); BLOOD UREA NITROGEN 16 mg/dL (7-18); CALCIUM 8.7 mg/dL (8.5-10.1); CO2 25 mmol/L (21-32); CREATININE 1.3 mg/dL (0.7-1.3); GLUCOSE,RANDOM 99 mg/dL (74-106); PHOSPHOROUS 3.2 mg/dL (2.5-4.9)
--- NOTE | 2017-08-10 11:15 | PN ---
Progress Note, Physician Chief Complaint: AWAKE C/O FLANK PAIN +APPETITE +BM CHART AND EVENTS REVIEWED - Current Medication List Current Medications: Active Medications Albuterol Sulfate (Ventolin 0.083% Nebulizer Soln -) 1 amp NEB RQID [facility] Last Admin: 08/10/17 08:30 Dose: 1 amp Amlodipine Besylate (Norvasc -) 5 mg PO DAILY [facility] Last Admin: 08/10/17 09:21 Dose: 5 mg Clopidogrel Bisulfate (Plavix -) 75 mg PO DAILY [facility] Last Admin: 08/10/17 09:21 Dose: 75 mg Docusate Sodium (Colace -) 100 mg PO TID [facility] Last Admin: 08/10/17 05:42 Dose: Not Given Ferrous Sulfate (Feosol -) 325 mg PO BID [facility] Last Admin: 08/10/17 09:21 Dose: 325 mg Insulin Aspart (Novolog Vial Sliding Scale -) 1 vial SQ TIDAC [facility] PRN Reason: Protocol Last Admin: 08/10/17 05:59 Dose: Not Given Insulin Aspart (Novolog Vial Sliding Scale -) 1 vial SQ [facility] PRN Reason: Protocol Last Admin: 08/09/17 21:39 Dose: Not Given Lidocaine (Lidoderm Patch -) 1 patch TP DAILY [facility] Last Admin: 08/10/17 09:22 Dose: 1 patch Metoprolol Succinate (Toprol Xl -) 25 mg PO DAILY [facility] Last Admin: 08/10/17 09:21 Dose: 25 mg Miscellaneous (Lidoderm Patch Removal) 1 each MC DAILY@2200 [facility] Last Admin: 08/09/17 21:41 Dose: 1 each Nystatin (Nystop Powder -) 1 applic TP DAILY [facility] Last Admin: 08/10/17 09:20 Dose: 1 applic Pantoprazole Sodium (Protonix -) 40 mg PO DAILY [facility] Last Admin: 08/10/17 09:21 Dose: 40 mg Pramipexole Dihydrochloride (Mirapex -) 0.5 mg PO [facility] Last Admin: 08/09/17 21:40 Dose: 0.5 mg Pregabalin (Lyrica -) 75 mg PO BID [facility] Last Admin: 08/10/17 09:21 Dose: 75 mg Rifampin (Rifadin -) 300 mg PO DAILY [facility] Last Admin: 08/10/17 09:21 Dose: 300 mg Tamsulosin HCl (Flomax -) 0.4 mg PO DAILY@0830 [facility] Last Admin: 08/10/17 09:18 Dose: 0.4 mg Tiotropium [place] (Spiriva -) 1 puff IH DAILY [facility] Last Admin: 08/10/17 09:21 Dose: 1 puff Zinc Acetate/Diphenhydramine (Benadryl 2% Cream) 1 applic TP DAILY [facility] Last Admin: 08/10/17 09:20 Dose: 1 applic - Objective Vital Signs: Vital Signs Temperature 97.8 F 08/10/17 09:00 Pulse Rate 85 08/10/17 09:00 Respiratory Rate 20 08/10/17 09:00 Blood Pressure 122/72 08/10/17 09:00 O2 Sat by Pulse Oximetry (%) 96 08/10/17 09:00 Constitutional: Yes: Mild Distress Eyes: Yes: WNL HENT: Yes: WNL Neck: Yes: WNL Cardiovascular: Yes: WNL Respiratory: Yes: WNL Gastrointestinal: Yes: WNL Genitourinary: Yes: Other Musculoskeletal: Yes: Back Pain, Muscle Weakness Extremities: Yes: Other Edema: Yes Integumentary: Yes: WNL Wound/Incision: Yes: Clean/Dry Neurological: Yes: WNL ...Motor Strength: LLE, RLE Psychiatric: Yes: Other Labs: CBC, BMP 08/07/17 07:24 08/10/17 07:15 Problem List - Problems (1) Acute kidney injury superimposed on CKD Code(s): N17.9 - ACUTE KIDNEY FAILURE, UNSPECIFIED; N18.9 - CHRONIC KIDNEY DISEASE, UNSPECIFIED (2) Flank pain Code(s): R10.9 - UNSPECIFIED ABDOMINAL PAIN (3) COPD exacerbation Code(s): J44.1 - CHRONIC OBSTRUCTIVE PULMONARY DISEASE W (ACUTE) EXACERBATION (4) Diabetic foot Code(s): E11.8 - TYPE 2 DIABETES MELLITUS WITH UNSPECIFIED COMPLICATIONS Assessment/Plan NEPHROLOGY F/U APPRECIATED FLANK PAIN CONTINUES PER RENAL ORDERING CT WITH CONTRAST OF ABD/FLANK PAIN CONTROL AND HD CONTINUED
[2017-08-10] MEDS: morphine CARPU-JECT 10 MG/1 ML DISP.SYRIN IVPUSH PRN ×2 (12:26→19:00)
--- NOTE | 2017-08-10 15:25 | PN ---
Progress Note (short form) - Note Progress Note: Renal follow up for JESÚS on CKD Pt seen and examined at the bedside awake and alert continues to have left sided flank pain with some radiation to his abd no hematuria, dysuria no N/V/D making urine Vital Signs Temperature 97.9 F 08/10/17 14:05 Pulse Rate 69 08/10/17 14:05 Respiratory Rate 16 08/10/17 14:05 Blood Pressure 97/53 08/10/17 14:05 O2 Sat by Pulse Oximetry (%) 96 08/10/17 09:00 Intake & Output 08/07/17 08/08/17 08/09/17 08/10/17 23:59 23:59 23:59 23:59 Intake Total 70 1230 2860 780 Output Total 559 418 7810 1400 Balance -830 710 -215 -620 Weight 75.115 kg 75.115 kg NAD awake and alert trace crackles at lung bases soft NT/ND No LE edema CBC, BMP 08/07/17 07:24 08/10/17 07:15 Current Medications Albuterol Sulfate (Ventolin 0.083% Nebulizer Soln -) 1 amp NEB RQID [facility] Last Admin: 08/10/17 12:40 Dose: 1 amp Amlodipine Besylate (Norvasc -) 5 mg PO DAILY [facility] Last Admin: 08/10/17 09:21 Dose: 5 mg Clopidogrel Bisulfate (Plavix -) 75 mg PO DAILY [facility] Last Admin: 08/10/17 09:21 Dose: 75 mg Docusate Sodium (Colace -) 100 mg PO TID [facility] Last Admin: 08/10/17 14:58 Dose: 100 mg Ferrous Sulfate (Feosol -) 325 mg PO BID [facility] Last Admin: 08/10/17 09:21 Dose: 325 mg Insulin Aspart (Novolog Vial Sliding Scale -) 1 vial SQ TIDAC [facility] PRN Reason: Protocol Last Admin: 08/10/17 11:54 Dose: Not Given Insulin Aspart (Novolog Vial Sliding Scale -) 1 vial SQ HS [facility] PRN Reason: Protocol Last Admin: 08/09/17 21:39 Dose: Not Given Lidocaine (Lidoderm Patch -) 1 patch TP DAILY [facility] Last Admin: 08/10/17 09:22 Dose: 1 patch Metoprolol Succinate (Toprol Xl -) 25 mg PO DAILY [facility] Last Admin: 08/10/17 09:21 Dose: 25 mg Miscellaneous (Lidoderm Patch Removal) 1 each MC DAILY@2200 [facility] Last Admin: 08/09/17 21:41 Dose: 1 each Morphine Sulfate (Morphine Injection -) 4 mg IVPUSH Q6H PRN PRN Reason: BACK PAIN Last Admin: 08/10/17 12:26 Dose: 4 mg Nystatin (Nystop Powder -) 1 applic TP DAILY [facility] Last Admin: 08/10/17 09:20 Dose: 1 applic Pantoprazole Sodium (Protonix -) 40 mg PO DAILY [facility] Last Admin: 08/10/17 09:21 Dose: 40 mg Pramipexole Dihydrochloride (Mirapex -) 0.5 mg PO HS [facility] Last Admin: 08/09/17 21:40 Dose: 0.5 mg Pregabalin (Lyrica -) 75 mg PO BID [facility] Last Admin: 08/10/17 09:21 Dose: 75 mg Rifampin (Rifadin -) 300 mg PO DAILY [facility] Last Admin: 08/10/17 09:21 Dose: 300 mg Tamsulosin HCl (Flomax -) 0.4 mg PO DAILY@0830 [facility] Last Admin: 08/10/17 09:18 Dose: 0.4 mg Tiotropium [place] (Spiriva -) 1 puff IH DAILY [facility] Last Admin: 08/10/17 09:21 Dose: 1 puff Zinc Acetate/Diphenhydramine (Benadryl 2% Cream) 1 applic TP DAILY [facility] Last Admin: 08/10/17 09:20 Dose: 1 applic 66 year old gentleman with PMhx of CKD Stage 4 (baseline Cr 1.3-1.5), DM Type 2 , CVA, Gout, LE wounds, Hx of osteomylitis presented with left sided flank pain and abdominal pain and found to have JESÚS/Progressive CKD with Cr of 1.8. #Acute on Chronic Renal insufficiency etiology of JESÚS pre-renal injury given high BUN/Cr ratio and hx of diuretic use Renal function improved to baseline at this time oral intake as tolerated #Flank pain/Abd pain CT of Abd showed no stones or pathology pain persists and is located in the flank, ? renal infarction as etiology ( although less likely as pt does not have Afib but does have arthosclerotic risk factors) will discuss with primary if contrast enhanced CT would be helpful #Hypertension continue metoprolol and amlodpine Deven Layton DO
[2017-08-10] MEDS: PRAMIPEXOLE DIHYDROCHLORIDE 0.5 MG TABLET PO SCH (22:38)
[2017-08-10] MEDS: LIDOCAINE PATCH REMOVAL MC SCH (22:45)
[2017-08-11] MEDS: INSULIN SLIDING SCALE (NOVOLOG) 1 VIAL SQ SCH ×4 (06:34→21:28)
[2017-08-11] MEDS: DOCUSATE SODIUM 100 MG CAPSULE (FP) PO SCH ×3 (06:34→21:29)
[2017-08-11] MEDS: ALBUTEROL SO4 0.083% IH SOL 2.5 MG/3 ML VIAL.NEB. NEB SCH ×4 (08:05→20:45)
[2017-08-11] MEDS: TAMSULOSIN HCL 0.4 MG CAP.ER.24H (FP) PO SCH (08:37)
[2017-08-11 08:52] LABS: BASO % 0.7 % (0-2.0); EOS % 5.4 % (0-4.5); HEMATOCRIT 37.6 % (35.4-49); HEMOGLOBIN 11.1 GM/dL (11.7-16.9); LYMPH % 24.5 % (8-40); MCH 20.2 pg (25.7-33.7); MCHC 29.4 g/dl (32.0-35.9); MEAN CELL VOLUME 68.5 fl (80-96); MONO % 12.2 % (3.8-10.2); NEUT % 57.2 % (42.8-82.8); RDW 23.2 % (11.9-15.9); WHITE BLOOD COUNT 5.9 K/mm3 (4.0-10.0)
[2017-08-11 09:14] LABS: CHLORIDE 106 mmol/L (98-107); POTASSIUM 4.3 mmol/L (3.5-5.1); SODIUM 139 mmol/L (136-145)
[2017-08-11] MEDS: morphine CARPU-JECT 10 MG/1 ML DISP.SYRIN IVPUSH PRN (09:24)
[2017-08-11] MEDS: CLOPIDOGREL BISULFATE 75 MG TABLET (FP) PO SCH (09:25)
[2017-08-11] MEDS: FERROUS SO4 325 MG TABLET (FP) PO SCH ×2 (09:25→21:28)
[2017-08-11] MEDS: PREGABALIN 75 MG CAPSULE PO SCH ×2 (09:25→21:28)
[2017-08-11] MEDS: amLODIPine BESYLATE 5 MG TABLET (FP) PO SCH (09:25)
[2017-08-11] MEDS: PANTOPRAZOLE 40 MG TABLET (FP) PO SCH (09:25)
[2017-08-11] MEDS: NYSTATIN POWDER 100,000 UNITS/GM - 15 GM TOPICAL POWDER TP SCH (09:26)
[2017-08-11] MEDS: LIDOCAINE 5% TOPICAL PATCH TP SCH (09:26)
[2017-08-11] MEDS: TIOTROPIUM BROMIDE 18 MCG/INH (DEVICE W/ 5 CAPSULES) IH SCH (09:33)
[2017-08-11] MEDS ORDERED: PT OWN MED DRAWER 7, Y5N ONE ×2 (09:39→13:12)
[2017-08-11 09:43] LABS: ANION GAP 7 (8-16); BLOOD UREA NITROGEN 20 mg/dL (7-18); CALCIUM 7.9 mg/dL (8.5-10.1); CO2 26 mmol/L (21-32); CREATININE 1.6 mg/dL (0.7-1.3); GLUCOSE,RANDOM 100 mg/dL (74-106); MAGNESIUM 2.3 mg/dL (1.8-2.4); PHOSPHOROUS 3.5 mg/dL (2.5-4.9)
[2017-08-11] MEDS: RIFAMPIN 300 MG CAPSULE PO SCH (10:17)
[2017-08-11] MEDS: METOPROLOL SUCCINATE 25 MG TAB.SR.24H (FP) PO SCH (10:17)
[2017-08-11] MEDS: SODIUM CHLORIDE 1,000 ML IV SCH (11:59)
[2017-08-11] MEDS: ACETYLCYSTEINE 20% 200MG/ML 30 ML VIAL *FOR ORAL / INH USE ONLY PO SCH ×2 (13:29→23:15)
[2017-08-11 13:31] LABS: PLATELET COUNT 97 K/MM3 (134-434)
[2017-08-11 13:32] LABS: PLATELET ESTIMATE DECREASED
--- NOTE | 2017-08-11 15:57 | PN ---
Progress Note (short form) - Note Progress Note: Renal follow up for JESÚS on CKD Pt seen and examined at the bedside awake and alert continues to have left sided flank pain with some radiation to his abd no hematuria, dysuria no N/V/D making urine Vital Signs Temperature 97.9 F 08/10/17 14:05 Pulse Rate 69 08/10/17 14:05 Respiratory Rate 16 08/10/17 14:05 Blood Pressure 97/53 08/10/17 14:05 O2 Sat by Pulse Oximetry (%) 96 08/10/17 09:00 Intake & Output 08/07/17 08/08/17 08/09/17 08/10/17 23:59 23:59 23:59 23:59 Intake Total 70 1230 2860 780 Output Total 411 712 5914 1400 Balance -830 710 215 620 Weight 75.115 kg 75.115 kg NAD awake and alert soft NT/ND No LE edema CBC, BMP 08/11/17 08:30 08/11/17 08:30 Current Medications Acetylcysteine (Mucomyst 20 Oral / Inh Use Only*) 1,200 mg PO Q12H [facility] Stop: 08/12/17 00:01 Last Admin: 08/11/17 13:29 Dose: 1,200 mg Albuterol Sulfate (Ventolin 0.083% Nebulizer Soln -) 1 amp NEB RQID [facility] Last Admin: 08/11/17 08:05 Dose: 1 amp Amlodipine Besylate (Norvasc -) 5 mg PO DAILY [facility] Last Admin: 08/11/17 09:25 Dose: 5 mg Clopidogrel Bisulfate (Plavix -) 75 mg PO DAILY [facility] Last Admin: 08/11/17 09:25 Dose: 75 mg Docusate Sodium (Colace -) 100 mg PO TID [facility] Last Admin: 08/11/17 13:28 Dose: 100 mg Ferrous Sulfate (Feosol -) 325 mg PO BID [facility] Last Admin: 08/11/17 09:25 Dose: 325 mg Sodium Chloride (Normal Saline -) 1,000 mls @ 75 mls/hr IV ASDIR [facility] Last Admin: 08/11/17 11:59 Dose: 75 mls/hr Insulin Aspart (Novolog Vial Sliding Scale -) 1 vial SQ TIDAC [facility] PRN Reason: Protocol Last Admin: 08/11/17 11:12 Dose: 4 unit Insulin Aspart (Novolog Vial Sliding Scale -) 1 vial SQ [facility] PRN Reason: Protocol Last Admin: 08/10/17 22:39 Dose: 2 units Lidocaine (Lidoderm Patch -) 1 patch TP DAILY [facility] Last Admin: 08/11/17 09:26 Dose: 1 patch Metoprolol Succinate (Toprol Xl -) 25 mg PO DAILY [facility] Last Admin: 08/11/17 10:17 Dose: 25 mg Miscellaneous (Lidoderm Patch Removal) 1 each MC DAILY@2200 [facility] Last Admin: 08/10/17 22:45 Dose: Not Given Morphine Sulfate (Morphine Sulfate) 4 mg IVPUSH Q6H PRN PRN Reason: BACK PAIN Nystatin (Nystop Powder -) 1 applic TP DAILY [facility] Last Admin: 08/11/17 09:26 Dose: 1 applic Pantoprazole Sodium (Protonix -) 40 mg PO DAILY [facility] Last Admin: 08/11/17 09:25 Dose: 40 mg Pramipexole Dihydrochloride (Mirapex -) 0.5 mg PO HS [facility] Last Admin: 08/10/17 22:38 Dose: 0.5 mg Pregabalin (Lyrica -) 75 mg PO BID [facility] Last Admin: 08/11/17 09:25 Dose: 75 mg Rifampin (Rifadin -) 300 mg PO DAILY [facility] Last Admin: 08/11/17 10:17 Dose: 300 mg Tamsulosin HCl (Flomax -) 0.4 mg PO DAILY@0830 [facility] Last Admin: 08/11/17 08:37 Dose: 0.4 mg Tiotropium [place] (Spiriva -) 1 puff IH DAILY [facility] Last Admin: 08/11/17 09:33 Dose: 1 puff Zinc Acetate/Diphenhydramine (Benadryl 2% Cream) 1 applic TP DAILY [facility] Last Admin: 08/11/17 09:26 Dose: 1 applic 66 year old gentleman with PMhx of CKD Stage 4 (baseline Cr 1.3-1.5), DM Type 2 , CVA, Gout, LE wounds, Hx of osteomylitis presented with left sided flank pain and abdominal pain and found to have JESÚS/Progressive CKD with Cr of 1.8. #Acute on Chronic Renal insufficiency Cr macario to 1.6 today, BUN is 60 will start IVF : NS at 75 cc per hour as pt is to get contrast exposure #Flank pain/Abd pain CT with IV contrast ordered will hydrate with IVF prior to contrast exposure r/o renal infarction continue pain control #Constrast exposure in pt with CKD Risk of ALEXANDRA is 14%, risk for immediate dialysis is 0.12% will prehydrate with NS and also give Mucomyst trend BUN/Cr post procedure continue IVF up to 12 hours after procedure #Hypertension continue metoprolol and amlodpine Deven Layton DO
--- NOTE | 2017-08-11 19:24 | PN ---
Progress Note, Physician Chief Complaint: AWAKE ALERT STILL C/O FLANK PAIN - Current Medication List Current Medications: Active Medications Acetylcysteine (Mucomyst 20 Oral / Inh Use Only*) 1,200 mg PO Q12H [facility] Stop: 08/12/17 00:01 Last Admin: 08/11/17 13:29 Dose: 1,200 mg Albuterol Sulfate (Ventolin 0.083% Nebulizer Soln -) 1 amp NEB RQID [facility] Last Admin: 08/11/17 13:25 Dose: 1 amp Amlodipine Besylate (Norvasc -) 5 mg PO DAILY [facility] Last Admin: 08/11/17 09:25 Dose: 5 mg Clopidogrel Bisulfate (Plavix -) 75 mg PO DAILY [facility] Last Admin: 08/11/17 09:25 Dose: 75 mg Docusate Sodium (Colace -) 100 mg PO TID [facility] Last Admin: 08/11/17 13:28 Dose: 100 mg Ferrous Sulfate (Feosol -) 325 mg PO BID [facility] Last Admin: 08/11/17 09:25 Dose: 325 mg Sodium Chloride (Normal Saline -) 1,000 mls @ 75 mls/hr IV ASDIR [facility] Last Admin: 08/11/17 11:59 Dose: 75 mls/hr Insulin Aspart (Novolog Vial Sliding Scale -) 1 vial SQ TIDAC [facility] PRN Reason: Protocol Last Admin: 08/11/17 16:24 Dose: 2 unit Insulin Aspart (Novolog Vial Sliding Scale -) 1 vial SQ HS [facility] PRN Reason: Protocol Last Admin: 08/10/17 22:39 Dose: 2 units Lidocaine (Lidoderm Patch -) 1 patch TP DAILY [facility] Last Admin: 08/11/17 09:26 Dose: 1 patch Metoprolol Succinate (Toprol Xl -) 25 mg PO DAILY [facility] Last Admin: 08/11/17 10:17 Dose: 25 mg Miscellaneous (Lidoderm Patch Removal) 1 each MC DAILY@2200 [facility] Last Admin: 08/10/17 22:45 Dose: Not Given Morphine Sulfate (Morphine Sulfate) 4 mg IVPUSH Q6H PRN PRN Reason: BACK PAIN Nystatin (Nystop Powder -) 1 applic TP DAILY [facility] Last Admin: 08/11/17 09:26 Dose: 1 applic Pantoprazole Sodium (Protonix -) 40 mg PO DAILY [facility] Last Admin: 08/11/17 09:25 Dose: 40 mg Pramipexole Dihydrochloride (Mirapex -) 0.5 mg PO HS [facility] Last Admin: 08/10/17 22:38 Dose: 0.5 mg Pregabalin (Lyrica -) 75 mg PO BID [facility] Last Admin: 08/11/17 09:25 Dose: 75 mg Rifampin (Rifadin -) 300 mg PO DAILY [facility] Last Admin: 08/11/17 10:17 Dose: 300 mg Tamsulosin HCl (Flomax -) 0.4 mg PO DAILY@0830 [facility] Last Admin: 08/11/17 08:37 Dose: 0.4 mg Tiotropium [place] (Spiriva -) 1 puff IH DAILY [facility] Last Admin: 08/11/17 09:33 Dose: 1 puff Zinc Acetate/Diphenhydramine (Benadryl 2% Cream) 1 applic TP DAILY [facility] Last Admin: 08/11/17 09:26 Dose: 1 applic - Objective Vital Signs: Vital Signs Temperature 98.4 F 08/11/17 17:00 Pulse Rate 92 H 08/11/17 17:00 Respiratory Rate 20 08/11/17 17:00 Blood Pressure 149/101 08/11/17 17:00 O2 Sat by Pulse Oximetry (%) 96 08/11/17 09:00 Constitutional: Yes: Mild Distress Eyes: Yes: WNL HENT: Yes: WNL Neck: Yes: WNL Cardiovascular: Yes: WNL Respiratory: Yes: WNL Gastrointestinal: Yes: WNL, Tenderness Genitourinary: Yes: CVA Tenderness - Left Musculoskeletal: Yes: Back Pain Extremities: Yes: WNL Edema: Yes Peripheral Pulses WNL: Yes Integumentary: Yes: WNL Wound/Incision: Yes: Clean/Dry Neurological: Yes: WNL ...Motor Strength: WNL Psychiatric: Yes: WNL Labs: CBC, BMP 08/11/17 08:30 08/11/17 08:30 Problem List - Problems (1) Acute kidney injury superimposed on CKD Code(s): N17.9 - ACUTE KIDNEY FAILURE, UNSPECIFIED; N18.9 - CHRONIC KIDNEY DISEASE, UNSPECIFIED (2) Flank pain Code(s): R10.9 - UNSPECIFIED ABDOMINAL PAIN (3) COPD exacerbation Code(s): J44.1 - CHRONIC OBSTRUCTIVE PULMONARY DISEASE W (ACUTE) EXACERBATION (4) Diabetic foot Code(s): E11.8 - TYPE 2 DIABETES MELLITUS WITH UNSPECIFIED COMPLICATIONS Assessment/Plan PATIENT REFUSING DIALYSIS "I RATHER THAN BE ON DIALYSIS" ORDRRING PSYCH EVAL CT WITH CONTRAST PER NEPHROLOGY WILL EVALUATE FLANK PAIN PAIN CONTROL IVF
[2017-08-11] MEDS: LIDOCAINE PATCH REMOVAL MC SCH (21:28)
[2017-08-11] MEDS: PRAMIPEXOLE DIHYDROCHLORIDE 0.5 MG TABLET PO SCH (21:29)
[2017-08-11] MEDS: morphine SULFATE 4 MG/ML VIAL IVPUSH PRN (22:40)
[2017-08-12] MEDS: SODIUM CHLORIDE 1,000 ML IV SCH (04:28)
[2017-08-12] MEDS: DOCUSATE SODIUM 100 MG CAPSULE (FP) PO SCH (05:49)
[2017-08-12] MEDS: INSULIN SLIDING SCALE (NOVOLOG) 1 VIAL SQ SCH ×2 (06:09→11:13)
[2017-08-12] MEDS: morphine SULFATE 4 MG/ML VIAL IVPUSH PRN (06:22)
[2017-08-12] MEDS: ALBUTEROL SO4 0.083% IH SOL 2.5 MG/3 ML VIAL.NEB. NEB SCH ×2 (07:35→12:52)
[2017-08-12 07:46] LABS: ANION GAP 9 (8-16); BLOOD UREA NITROGEN 18 mg/dL (7-18); CALCIUM 8.2 mg/dL (8.5-10.1); CHLORIDE 105 mmol/L (98-107); CO2 27 mmol/L (21-32); CREATININE 1.5 mg/dL (0.7-1.3); GLUCOSE,RANDOM 99 mg/dL (74-106); MAGNESIUM 2.2 mg/dL (1.8-2.4); PHOSPHOROUS 2.9 mg/dL (2.5-4.9); POTASSIUM 4.7 mmol/L (3.5-5.1); SODIUM 141 mmol/L (136-145)
[2017-08-12] MEDS: TAMSULOSIN HCL 0.4 MG CAP.ER.24H (FP) PO SCH (09:22)
[2017-08-12] MEDS ORDERED: PT OWN MED DRAWER 7, Y5N ONE (10:15)
[2017-08-12] MEDS: RIFAMPIN 300 MG CAPSULE PO SCH (10:19)
[2017-08-12] MEDS: LIDOCAINE 5% TOPICAL PATCH TP SCH (10:19)
[2017-08-12] MEDS: PREGABALIN 75 MG CAPSULE PO SCH (10:19)
[2017-08-12] MEDS: METOPROLOL SUCCINATE 25 MG TAB.SR.24H (FP) PO SCH (10:20)
[2017-08-12] MEDS: PANTOPRAZOLE 40 MG TABLET (FP) PO SCH (10:20)
[2017-08-12] MEDS: NYSTATIN POWDER 100,000 UNITS/GM - 15 GM TOPICAL POWDER TP SCH (10:20)
[2017-08-12] MEDS: CLOPIDOGREL BISULFATE 75 MG TABLET (FP) PO SCH (10:20)
[2017-08-12] MEDS: FERROUS SO4 325 MG TABLET (FP) PO SCH (10:20)
[2017-08-12] MEDS: amLODIPine BESYLATE 5 MG TABLET (FP) PO SCH (10:20)
[2017-08-12] MEDS: TIOTROPIUM BROMIDE 18 MCG/INH (DEVICE W/ 5 CAPSULES) IH SCH (10:20)
--- NOTE | 2017-08-12 12:25 | PN ---
Progress Note (short form) - Note Progress Note: Renal follow up for JESÚS on CKD Pt seen and examined at the bedside awake and alert reports intermittent left sided flank pain no hematuria, abd pain, N/V/D Vital Signs Temperature 97.5 F L 08/12/17 10:00 Pulse Rate 89 08/12/17 10:00 Respiratory Rate 20 08/12/17 10:00 Blood Pressure 134/78 08/12/17 10:00 O2 Sat by Pulse Oximetry (%) 99 08/12/17 09:00 Intake & Output 08/09/17 08/10/17 08/11/17 08/12/17 23:59 23:59 23:59 23:59 Intake Total 2860 1180 1835 1075 Output Total 3075 2000 440 1030 Balance -215 -820 1395 45 NAD awake and alert soft NT/ND No LE edema 08/11/17 08:30 08/12/17 07:05 Current Medications Albuterol Sulfate (Ventolin 0.083% Nebulizer Soln -) 1 amp NEB RQID [facility] Last Admin: 08/12/17 07:35 Dose: 1 amp Amlodipine Besylate (Norvasc -) 5 mg PO DAILY [facility] Last Admin: 08/12/17 10:20 Dose: 5 mg Clopidogrel Bisulfate (Plavix -) 75 mg PO DAILY [facility] Last Admin: 08/12/17 10:20 Dose: 75 mg Docusate Sodium (Colace -) 100 mg PO TID [facility] Last Admin: 08/12/17 05:49 Dose: Not Given Ferrous Sulfate (Feosol -) 325 mg PO BID [facility] Last Admin: 08/12/17 10:20 Dose: 325 mg Sodium Chloride (Normal Saline -) 1,000 mls @ 75 mls/hr IV ASDIR [facility] Last Admin: 08/12/17 04:28 Dose: 75 mls/hr Insulin Aspart (Novolog Vial Sliding Scale -) 1 vial SQ TIDAC [facility] PRN Reason: Protocol Last Admin: 08/12/17 11:13 Dose: Not Given Insulin Aspart (Novolog Vial Sliding Scale -) 1 vial SQ HS [facility] PRN Reason: Protocol Last Admin: 08/11/17 21:28 Dose: Not Given Lidocaine (Lidoderm Patch -) 1 patch TP DAILY [facility] Last Admin: 08/12/17 10:19 Dose: 1 patch Metoprolol Succinate (Toprol Xl -) 25 mg PO DAILY [facility] Last Admin: 08/12/17 10:20 Dose: 25 mg Miscellaneous (Lidoderm Patch Removal) 1 each MC DAILY@2200 [facility] Last Admin: 08/11/17 21:28 Dose: 1 each Morphine Sulfate (Morphine Sulfate) 4 mg IVPUSH Q6H PRN PRN Reason: BACK PAIN Last Admin: 08/12/17 06:22 Dose: 4 mg Nystatin (Nystop Powder -) 1 applic TP DAILY [facility] Last Admin: 08/12/17 10:20 Dose: 1 applic Pantoprazole Sodium (Protonix -) 40 mg PO DAILY [facility] Last Admin: 08/12/17 10:20 Dose: 40 mg Pramipexole Dihydrochloride (Mirapex -) 0.5 mg PO HS [facility] Last Admin: 08/11/17 21:29 Dose: 0.5 mg Pregabalin (Lyrica -) 75 mg PO BID [facility] Last Admin: 08/12/17 10:19 Dose: 75 mg Rifampin (Rifadin -) 300 mg PO DAILY [facility] Last Admin: 08/12/17 10:19 Dose: 300 mg Tamsulosin HCl (Flomax -) 0.4 mg PO DAILY@0830 [facility] Last Admin: 08/12/17 09:22 Dose: 0.4 mg Tiotropium [place] (Spiriva -) 1 puff IH DAILY [facility] Last Admin: 08/12/17 10:20 Dose: 1 puff Zinc Acetate/Diphenhydramine (Benadryl 2% Cream) 1 applic TP DAILY [facility] Last Admin: 08/12/17 10:20 Dose: 1 applic 66 year old gentleman with PMhx of CKD Stage 4 (baseline Cr 1.3-1.5), DM Type 2 , CVA, Gout, LE wounds, Hx of osteomylitis presented with left sided flank pain and abdominal pain and found to have JESÚS/Progressive CKD with Cr of 1.8. #Acute on Chronic Renal insufficiency Renal function slighly improved today s/p IVF for > 18 hours trend BUN/Cr #Flank pain/Abd pain CT with control performed, official read is pending no overt infarction seen on the kidneys continue pain control heat packs #Constrast exposure in pt with CKD Cr stable now, s/p IVF (will discontinue fluids now) continue to trend BUN/Cr avoid nsaids, LUIS/ARBs for now #Hypertension continue metoprolol and amlodpine Deven Layton DO
--- NOTE | 2017-08-12 13:39 | DS ---
Physical Examination Vital Signs: Vital Signs Temperature 97.5 F L 08/12/17 10:00 Pulse Rate 89 08/12/17 10:00 Respiratory Rate 20 08/12/17 10:00 Blood Pressure 134/78 08/12/17 10:00 O2 Sat by Pulse Oximetry (%) 99 08/12/17 09:00 Constitutional: Yes: No Distress Eyes: Yes: WNL HENT: Yes: WNL Neck: Yes: WNL Cardiovascular: Yes: WNL Respiratory: Yes: WNL Gastrointestinal: Yes: WNL Renal/: Yes: WNL Musculoskeletal: Yes: Muscle Weakness Extremities: Yes: WNL Edema: No Peripheral Pulses WNL: Yes Integumentary: Yes: WNL Wound/Incision: Yes: Clean/Dry Neurological: Yes: Pre-Existing Deficit ...Motor Strength: WNL Psychiatric: Yes: WNL Labs: CBC, BMP 08/11/17 08:30 08/12/17 07:05 Discharge Summary Reason For Visit: ACUTE KIDNEY INJURY Current Active Problems JESÚS (acute kidney injury) (Acute) Acute kidney injury superimposed on CKD (Acute) Flank pain (Acute) Procedures: Principal: CT SCAN Hospital Course: ADMITTED IV ABX, IVF, PAIN CONTROL, SENT HOME WITH [facility] Condition: Stable - Instructions Diet, Activity, Other Instructions: RENAL DIET SEE PRIMARY DOCTOR AND RENAL DOCTOR IN 1 WEEK Disposition: VNS/HOME HEALTH CARE - Home Medications Comprehensive Discharge Medication List: Ambulatory Orders Nystatin Powder [Nystop Powder -] 60 gm TP DAILY 05/11/16 Tamsulosin HCl [Flomax -] 0.4 mg PO DAILY 05/11/16 Trazodone HCl [Desyrel -] 50 mg PO HS 05/11/16 Metoprolol Succinate [Toprol XL -] 25 mg PO DAILY tab.sr.24h 07/19/16 Oxycodone HCl [Roxicodone -] 5 mg PO Q8H PRN #30 tablet MDD 3 07/19/16 Memantine HCl [Namenda Xr] 7 mg PO DAILY 07/22/16 Aclidinium [place] [Tudorza -] 1 puff IH BID inhaler 10/29/16 Amlodipine Besylate [Norvasc -] 5 mg PO DAILY tablet 10/29/16 Clopidogrel Bisulfate [Plavix -] 75 mg PO DAILY tablet 10/29/16 Ferrous Sulfate 325 mg PO BID 01/25/17 Pantoprazole Sodium [Protonix] 40 mg PO DAILY 01/25/17 Furosemide [Lasix] 20 mg PO DAILY #0 mg 03/08/17 Ergocalciferol (Vitamin D2) [Vitamin D2] 50,000 unit PO WEEKLY 05/11/17 Pregabalin [Lyrica -] 150 mg PO BID 05/11/17 Albuterol 0.083% Nebulizer [place] [Ventolin 0.083% Nebulizer Soln -] 1 neb NEB Q6H PRN #120 vial 05/19/17 Gabapentin 300 mg PO BID #0 tab 05/19/17 Insulin (Levemir) [Levemir Flexpen -] 18 units SQ BID #1 units 05/19/17 Doxycycline Hyclate 100 mg PO DAILY 08/06/17 Oxybutynin Chloride [Ditropan Xl] 5 mg PO DAILY 08/06/17 Pramipexole Dihydrochloride [Mirapex -] 0.5 mg PO HS 08/06/17 Rifampin [Rifadin -] 300 mg PO DAILY 08/06/17
[2017-08-12 13:57] VITALS: BP 129/71; PULSE 64; TEMP 98.2
== END 2017-08-12 15:25 | disposition home health service (06) | DRG 683 ==
LOC: JER 13:17 → JERBED 21:22 → J4S 08-07 03:28 → OBSVTOIN 08-08 11:41
PROVIDERS: ADMIT Family Medicine; ATTEND Family Medicine
DX: N17.9 Acute kidney failure, unspecified (principal); J44.0 Chronic obstructive pulmonary disease with (acute) lower respiratory infection; I69.854 Hemiplegia and hemiparesis following other cerebrovascular disease affecting left non-dominant side; L97.508 Non-pressure chronic ulcer of other part of unspecified foot with other specified severity; M86.8X8 Other osteomyelitis, other site; J44.1 Chronic obstructive pulmonary disease with (acute) exacerbation; E78.5 Hyperlipidemia, unspecified; M10.9 Gout, unspecified; E11.621 Type 2 diabetes mellitus with foot ulcer; E11.51 Type 2 diabetes mellitus with diabetic peripheral angiopathy without gangrene; J84.10 Pulmonary fibrosis, unspecified; G47.39 Other sleep apnea; D64.9 Anemia, unspecified; I12.9 Hypertensive chronic kidney disease with stage 1 through stage 4 chronic kidney disease, or unspecified chronic kidney disease; N18.9 Chronic kidney disease, unspecified; Z79.4 Long term (current) use of insulin; Z99.81 Dependence on supplemental oxygen; Z89.422 Acquired absence of other left toe(s)
CPT/HCPCS: 36415; 71101-TC; 74176-TC; 74178-TC; 80048; 80053; 81003; 81015; 82570; 82728; 82962; 83036; 83540; 83550; 83690; 83735; 84100; 84156; 84300; 84540; 85025; 93005; 93010; 94640; 99284-25; G0378

== ENCOUNTER 2017-11-07 16:00 | Inpatient (IN) | payer OTHER, BC ==
[2017-11-07 19:11] LABS: BASO % 1.2 % (0-2.0); EOS % 2.8 % (0-4.5); HEMATOCRIT 33.3 % (35.4-49); HEMOGLOBIN 10.4 GM/dL (11.7-16.9); MCH 22.3 pg (25.7-33.7); MCHC 31.2 g/dl (32.0-35.9); MEAN CELL VOLUME 71.5 fl (80-96); MEAN PLT VOLUME 9.5 fl (7.5-11.1); MONO % 11.8 % (3.8-10.2); NEUT % 64.2 % (42.8-82.8); RBC 4.66 M/mm3 (4.00-5.60); RDW 21.2 % (11.9-15.9)
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
[2017-11-07 19:42] LABS: ALBUMIN 3.4 g/dl (3.4-5.0); ANION GAP 5 (8-16); BLOOD UREA NITROGEN 49 mg/dL (7-18); CALCIUM 8.1 mg/dL (8.5-10.1); CHLORIDE 109 mmol/L (98-107); CO2 27 mmol/L (21-32); CREATININE 2.7 mg/dL (0.7-1.3); GLUCOSE,RANDOM 102 mg/dL (74-106); POTASSIUM 4.6 mmol/L (3.5-5.1); SGOT/AST 12 U/L (15-37); SGPT/ALT 20 U/L (12-78); SODIUM 141 mmol/L (136-145); URINE APPEARANCE CLEAR; URINE BILIRUBIN NEGATIVE (<2.0 mg/dL); URINE BLOOD NEGATIVE (NEGATIVE); URINE COLOR YELLOW; URINE GLUCOSE (UA) NEGATIVE (NEGATIVE); URINE KETONE NEGATIVE (NEGATIVE); URINE LEUK ESTERASE NEGATIVE (NEGATIVE); URINE NITRITE NEGATIVE (NEGATIVE); URINE PROTEIN NEGATIVE (NEGATIVE); URINE UROBILINOGEN NEGATIVE mg/dL (0.2-1.0)
[2017-11-07 19:46] LABS: ALK PHOS 158 U/L (45-117); BILIRUBIN,TOTAL 0.3 mg/dL (0.2-1.0); TOT PROT 7.2 g/dl (6.4-8.2)
[2017-11-07 19:56] LABS: PLATELET COUNT 170 K/MM3 (134-434)
[2017-11-07 19:57] LABS: PLATELET ESTIMATE ADEQUATE
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
[2017-11-08] MEDS ORDERED: ALBUTEROL SO4 0.083% IH SOL 2.5 MG/3 ML VIAL.NEB. NEB PRN (00:50)
[2017-11-08] MEDS: SODIUM CHLORIDE 1,000 ML IV SCH (01:47)
[2017-11-08] MEDS: DOCUSATE SODIUM 100 MG CAPSULE (FP) PO SCH ×2 (06:12→14:09)
[2017-11-08] MEDS: INSULIN SLIDING SCALE (NOVOLOG) 1 VIAL SQ SCH ×3 (07:05→18:57)
[2017-11-08 07:57] LABS: ALBUMIN 3.1 g/dl (3.4-5.0); ANION GAP 6 (8-16); BLOOD UREA NITROGEN 46 mg/dL (7-18); CALCIUM 8.2 mg/dL (8.5-10.1); CHLORIDE 110 mmol/L (98-107); CO2 25 mmol/L (21-32); GLUCOSE,RANDOM 105 mg/dL (74-106); POTASSIUM 4.4 mmol/L (3.5-5.1); SGOT/AST 13 U/L (15-37); SODIUM 141 mmol/L (136-145)
[2017-11-08 08:00] LABS: ALK PHOS 141 U/L (45-117); BILIRUBIN,TOTAL 0.4 mg/dL (0.2-1.0); CREATININE 2.3 mg/dL (0.7-1.3); SGPT/ALT 14 U/L (12-78); TOT PROT 6.5 g/dl (6.4-8.2)
[2017-11-08 08:35] LABS: HEMATOCRIT 32.5 % (35.4-49); MCH 22.1 pg (25.7-33.7); MCHC 30.9 g/dl (32.0-35.9); MEAN CELL VOLUME 71.6 fl (80-96); MEAN PLT VOLUME 9.1 fl (7.5-11.1); PLATELET COUNT 149 K/MM3 (134-434); RBC 4.55 M/mm3 (4.00-5.60); RDW 20.9 % (11.9-15.9); WHITE BLOOD COUNT 6.8 K/mm3 (4.0-10.0)
[2017-11-08] MEDS ORDERED: TAMSULOSIN HCL 0.4 MG CAP.ER.24H (FP) ONE (08:38)
[2017-11-08] MEDS: TAMSULOSIN HCL 0.4 MG CAP.ER.24H (FP) PO SCH (08:41)
[2017-11-08] MEDS ORDERED: MEMANTINE HCL 7 MG PO SCH (10:00)
[2017-11-08] MEDS ORDERED: PREGABALIN 50 MG CAPSULE ONE (10:16)
[2017-11-08] MEDS ORDERED: PANTOPRAZOLE 40 MG TABLET (FP) ONE (10:16)
[2017-11-08] MEDS ORDERED: ALLOPURINOL 100 MG TABLET (FP) ONE (10:17)
[2017-11-08] MEDS ORDERED: amLODIPine BESYLATE 5 MG TABLET (FP) ONE (10:17)
[2017-11-08] MEDS ORDERED: PREGABALIN 100 MG CAPSULE ONE (10:17)
[2017-11-08] MEDS ORDERED: CLOPIDOGREL BISULFATE 75 MG TABLET (FP) ONE (10:17)
[2017-11-08] MEDS ORDERED: FERROUS SO4 325 MG TABLET (FP) ONE (10:18)
[2017-11-08] MEDS: SILVER SULFADIAZINE 1% TOP CREAM 50 GM JAR TP SCH (10:26)
[2017-11-08] MEDS: PANTOPRAZOLE 40 MG TABLET (FP) PO SCH (10:26)
[2017-11-08] MEDS: PREGABALIN 75 MG CAPSULE PO SCH (10:26)
[2017-11-08] MEDS: FERROUS SO4 325 MG TABLET (FP) PO SCH (10:26)
[2017-11-08] MEDS: amLODIPine BESYLATE 5 MG TABLET (FP) PO SCH (10:26)
[2017-11-08] MEDS: CLOPIDOGREL BISULFATE 75 MG TABLET (FP) PO SCH (10:26)
[2017-11-08] MEDS: metoPROLOL SUCCINATE 25 MG TAB.SR.24H (FP) PO SCH (10:27)
[2017-11-08] MEDS: ALLOPURINOL 100 MG TABLET (FP) PO SCH (10:27)
[2017-11-08] MEDS: SOLIFENACIN SUCCINATE 5 MG TAB (FP) PO SCH (10:27)
--- NOTE | 2017-11-08 10:36 | EKG ---
Test Reason : Blood Pressure : / mmHG Vent. Rate : 066 BPM Atrial Rate : 066 BPM P-R Int : 250 ms QRS Dur : 082 ms QT Int : 408 ms P-R-T Axes : 041 089 031 degrees QTc Int : 427 ms SINUS RHYTHM WITH 1ST DEGREE A-V BLOCK CANNOT RULE OUT INFERIOR INFARCT (CITED ON OR BEFORE 06-AUG-2017) ABNORMAL ECG WHEN COMPARED WITH ECG OF 06-AUG-2017 21:31, NO SIGNIFICANT CHANGE WAS FOUND Confirmed by MD Ricky, Gene ([id number]) on 11/08/2017 10:35:46 AM Referred By: Confirmed By:Gene García MD
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
[2017-11-08] MEDS ORDERED: INSULIN (NOVOLOG) ASPART 100 UNITS/ML 10ML VIAL ONE (19:04)
[2017-11-09] MEDS: traZODone HCL 50 MG TABLET (FP) PO SCH ×2 (06:38→22:00)
[2017-11-09] MEDS: DOCUSATE SODIUM 100 MG CAPSULE (FP) PO SCH ×4 (06:38→22:00)
[2017-11-09] MEDS: PRAMIPEXOLE DIHYDROCHLORIDE 0.5 MG TABLET PO SCH ×2 (06:38→22:00)
[2017-11-09] MEDS: FERROUS SO4 325 MG TABLET (FP) PO SCH ×3 (06:38→22:00)
[2017-11-09] MEDS: PREGABALIN 75 MG CAPSULE PO SCH ×3 (06:38→22:00)
[2017-11-09] MEDS: INSULIN SLIDING SCALE (NOVOLOG) 1 VIAL SQ SCH ×5 (07:12→22:00)
[2017-11-09 08:27] LABS: BASO % 0.9 % (0-2.0); EOS % 2.3 % (0-4.5); HEMATOCRIT 35.2 % (35.4-49); HEMOGLOBIN 10.6 GM/dL (11.7-16.9); LYMPH % 17.4 % (8-40); MCH 21.6 pg (25.7-33.7); MEAN CELL VOLUME 71.8 fl (80-96); NEUT % 67.4 % (42.8-82.8); PLATELET COUNT 157 K/MM3 (134-434); RDW 21.4 % (11.9-15.9); WHITE BLOOD COUNT 6.8 K/mm3 (4.0-10.0)
[2017-11-09 08:29] LABS: ADD RBC MORPHOLOGY YES
[2017-11-09] MEDS: SODIUM CHLORIDE 1,000 ML IV SCH (08:34)
[2017-11-09 08:54] LABS: ALBUMIN 3.1 g/dl (3.4-5.0); ANION GAP 3 (8-16); BILIRUBIN,TOTAL 0.4 mg/dL (0.2-1.0); BLOOD UREA NITROGEN 33 mg/dL (7-18); CALCIUM 8.3 mg/dL (8.5-10.1); CHLORIDE 112 mmol/L (98-107); CO2 29 mmol/L (21-32); CREATININE 1.7 mg/dL (0.7-1.3); GLUCOSE,RANDOM 100 mg/dL (74-106); MAGNESIUM 1.8 mg/dL (1.8-2.4); PHOSPHOROUS 3.5 mg/dL (2.5-4.9); POTASSIUM 4.4 mmol/L (3.5-5.1); SGOT/AST 12 U/L (15-37); SGPT/ALT 12 U/L (12-78); SODIUM 144 mmol/L (136-145); TOT PROT 6.7 g/dl (6.4-8.2)
[2017-11-09 08:55] LABS: ALK PHOS 160 U/L (45-117)
[2017-11-09] MEDS: TAMSULOSIN HCL 0.4 MG CAP.ER.24H (FP) PO SCH (09:16)
[2017-11-09] MEDS ORDERED: SILVER SULFADIAZINE 1% TOP CREAM 50 GM JAR TP ONE (09:49)
[2017-11-09] MEDS ORDERED: PREGABALIN 50 MG CAPSULE ONE (09:49)
[2017-11-09] MEDS ORDERED: PREGABALIN 100 MG CAPSULE ONE (09:49)
[2017-11-09] MEDS: PANTOPRAZOLE 40 MG TABLET (FP) PO SCH (09:54)
[2017-11-09] MEDS: SILVER SULFADIAZINE 1% TOP CREAM 50 GM JAR TP SCH (09:54)
[2017-11-09] MEDS: ALLOPURINOL 100 MG TABLET (FP) PO SCH (09:54)
[2017-11-09] MEDS: SOLIFENACIN SUCCINATE 5 MG TAB (FP) PO SCH (09:54)
[2017-11-09] MEDS: metoPROLOL SUCCINATE 25 MG TAB.SR.24H (FP) PO SCH (09:54)
[2017-11-09] MEDS: CLOPIDOGREL BISULFATE 75 MG TABLET (FP) PO SCH (09:54)
[2017-11-09] MEDS: amLODIPine BESYLATE 5 MG TABLET (FP) PO SCH (09:54)
[2017-11-09 10:05] LABS: ACANTHOCYTES 1+; ANISOCYTOSIS 1+; MACROCYTOSIS 0; OVALOCYTE 1+
[2017-11-09 10:14] LABS: PLATELET ESTIMATE ADEQUATE
--- NOTE | 2017-11-09 11:24 | PN ---
Progress Note, Physician Chief Complaint: Near Syncope History of Present Illness: NAD Seen by cardiology and renal IVF - Current Medication List Current Medications: Active Medications Albuterol/Ipratropium (Duoneb -) 1 amp NEB Q4H PRN PRN Reason: SHORTNESS OF BREATH Allopurinol (Zyloprim -) 200 mg PO DAILY [facility] Last Admin: 11/09/17 09:54 Dose: 200 mg Amlodipine Besylate (Norvasc -) 5 mg PO DAILY [facility] Last Admin: 11/09/17 09:54 Dose: 5 mg Clopidogrel Bisulfate (Plavix -) 75 mg PO DAILY [facility] Last Admin: 11/09/17 09:54 Dose: 75 mg Docusate Sodium (Colace -) 100 mg PO TID [facility] Last Admin: 11/09/17 08:34 Dose: 100 mg Ferrous Sulfate (Feosol -) 325 mg PO BID [facility] Last Admin: 11/09/17 09:54 Dose: 325 mg Sodium Chloride (Normal Saline -) 1,000 mls @ 75 mls/hr IV ASDIR [facility] Last Admin: 11/09/17 08:34 Dose: 75 mls/hr Insulin Aspart (Novolog Vial Sliding Scale -) 1 vial SQ ACHS [facility] PRN Reason: Protocol Last Admin: 11/09/17 08:33 Dose: Not Given Metoprolol Succinate (Toprol Xl -) 25 mg PO DAILY [facility] Last Admin: 11/09/17 09:54 Dose: 25 mg Non-Formulary Medication (Memantine Hcl [Namenda Xr]) 7 mg PO DAILY [facility] Pantoprazole Sodium (Protonix -) 40 mg PO DAILY [facility] Last Admin: 11/09/17 09:54 Dose: 40 mg Pramipexole Dihydrochloride (Mirapex -) 0.5 mg PO HS [facility] Last Admin: 11/09/17 06:38 Dose: Not Given Pregabalin (Lyrica -) 150 mg PO BID [facility] Last Admin: 11/09/17 09:54 Dose: 150 mg Silver Sulfadiazine (Silvadene -) 1 applic TP DAILY [facility] Last Admin: 11/09/17 09:54 Dose: 1 mg Solifenacin (Vesicare -) 5 mg PO DAILY [facility] Last Admin: 11/09/17 09:54 Dose: 5 mg Tamsulosin HCl (Flomax -) 0.4 mg PO DAILY@0830 [facility] Last Admin: 11/09/17 09:16 Dose: 0.4 mg Trazodone HCl (Desyrel -) 50 mg PO HS [facility] Last Admin: 11/09/17 06:38 Dose: Not Given - Objective Vital Signs: Vital Signs Temperature 97.2 F L 11/08/17 14:05 Pulse Rate 74 11/09/17 07:16 Respiratory Rate 18 11/09/17 07:16 Blood Pressure 120/62 11/09/17 07:16 O2 Sat by Pulse Oximetry (%) 98 11/09/17 07:16 Constitutional: Yes: Well Nourished, No Distress, Calm Cardiovascular: Yes: Regular Rate and Rhythm Respiratory: Yes: Regular Gastrointestinal: Yes: Normal Bowel Sounds, Soft Musculoskeletal: Yes: WNL Extremities: Yes: WNL Edema: Yes Edema: LLE: Trace, RLE: Trace Peripheral Pulses WNL: Yes Neurological: Yes: Alert, Oriented Psychiatric: Yes: Alert, Oriented Labs: CBC, BMP 11/09/17 07:30 11/09/17 07:30 Problem List - Problems (1) Syncope Code(s): R55 - SYNCOPE AND COLLAPSE Qualifiers: Syncope type: unspecified Qualified Code(s): R55 - Syncope and collapse (2) Acute kidney injury superimposed on CKD Code(s): N17.9 - ACUTE KIDNEY FAILURE, UNSPECIFIED; N18.9 - CHRONIC KIDNEY DISEASE, UNSPECIFIED
--- NOTE | 2017-11-09 14:17 | PN ---
Progress Note, Physician Chief Complaint: Still in ER hold awaiting bed Not in distress History of Present Illness: Patient was seen and examined. Awake and alert. Chart was reviewed Denies chest pain or palpitations Slight difficulty breathing due to stuffed nose - Current Medication List Current Medications: Active Medications Albuterol/Ipratropium (Duoneb -) 1 amp NEB Q4H PRN PRN Reason: SHORTNESS OF BREATH Allopurinol (Zyloprim -) 200 mg PO DAILY [facility] Last Admin: 11/09/17 09:54 Dose: 200 mg Amlodipine Besylate (Norvasc -) 5 mg PO DAILY [facility] Last Admin: 11/09/17 09:54 Dose: 5 mg Clopidogrel Bisulfate (Plavix -) 75 mg PO DAILY [facility] Last Admin: 11/09/17 09:54 Dose: 75 mg Docusate Sodium (Colace -) 100 mg PO TID [facility] Last Admin: 11/09/17 08:34 Dose: 100 mg Ferrous Sulfate (Feosol -) 325 mg PO BID [facility] Last Admin: 11/09/17 09:54 Dose: 325 mg Sodium Chloride (Normal Saline -) 1,000 mls @ 75 mls/hr IV ASDIR [facility] Last Admin: 11/09/17 08:34 Dose: 75 mls/hr Insulin Aspart (Novolog Vial Sliding Scale -) 1 vial SQ ACHS [facility] PRN Reason: Protocol Last Admin: 11/09/17 12:40 Dose: Not Given Metoprolol Succinate (Toprol Xl -) 25 mg PO DAILY [facility] Last Admin: 11/09/17 09:54 Dose: 25 mg Non-Formulary Medication (Memantine Hcl [Namenda Xr]) 7 mg PO DAILY [facility] Pantoprazole Sodium (Protonix -) 40 mg PO DAILY [facility] Last Admin: 11/09/17 09:54 Dose: 40 mg Pramipexole Dihydrochloride (Mirapex -) 0.5 mg PO HS [facility] Last Admin: 11/09/17 06:38 Dose: Not Given Pregabalin (Lyrica -) 150 mg PO BID [facility] Last Admin: 11/09/17 09:54 Dose: 150 mg Silver Sulfadiazine (Silvadene -) 1 applic TP DAILY [facility] Last Admin: 11/09/17 09:54 Dose: 1 mg Solifenacin (Vesicare -) 5 mg PO DAILY [facility] Last Admin: 11/09/17 09:54 Dose: 5 mg Tamsulosin HCl (Flomax -) 0.4 mg PO DAILY@0830 [facility] Last Admin: 11/09/17 09:16 Dose: 0.4 mg Trazodone HCl (Desyrel -) 50 mg PO HS [facility] Last Admin: 11/09/17 06:38 Dose: Not Given - Objective Vital Signs: Vital Signs Temperature 97.2 F L 11/08/17 14:05 Pulse Rate 76 11/09/17 12:24 Respiratory Rate 18 11/09/17 12:24 Blood Pressure 122/62 11/09/17 12:24 O2 Sat by Pulse Oximetry (%) 98 11/09/17 12:24 Eyes: Yes: PERRL HENT: Yes: Atraumatic Neck: Yes: Supple Cardiovascular: Yes: Regular Rate and Rhythm, S1, S2 Respiratory: Yes: Diminished Gastrointestinal: Yes: Normal Bowel Sounds, Soft. No: Tenderness Edema: No Additional Findings/Remarks: - Review of Systems Constitutional: denies: Chills, Fever Cardiovascular: denies: Chest Pain, Palpitations, Shortness of Breath Respiratory: denies: Cough, Hemoptysis, Orthopnea, PND, SOB, SOB on Exertion Gastrointestinal: denies: Abdominal Pain, Constipation, Diarrhea, Melena, Nausea , Rectal Bleeding, Vomiting Neurological: reports: Syncope. denies: Dizziness, Headache, Seizure Labs: CBC, BMP 11/09/17 07:30 11/09/17 07:30 Problem List - Problems (1) Syncope Code(s): R55 - SYNCOPE AND COLLAPSE Qualifiers: Syncope type: unspecified Qualified Code(s): R55 - Syncope and collapse (2) Acute kidney injury superimposed on CKD Code(s): N17.9 - ACUTE KIDNEY FAILURE, UNSPECIFIED; N18.9 - CHRONIC KIDNEY DISEASE, UNSPECIFIED (3) Diabetic foot Code(s): E11.8 - TYPE 2 DIABETES MELLITUS WITH UNSPECIFIED COMPLICATIONS (4) Anemia Code(s): D64.9 - ANEMIA, UNSPECIFIED Qualifiers: Anemia type: unspecified type Qualified Code(s): D64.9 - Anemia, unspecified (5) COPD (chronic obstructive pulmonary disease) Code(s): J44.9 - CHRONIC OBSTRUCTIVE PULMONARY DISEASE, UNSPECIFIED Qualifiers: COPD type: COPD with acute lower respiratory infection Qualified Code(s): J44.0 - Chronic obstructive pulmonary disease with acute lower respiratory infection (6) Coronary artery disease Code(s): I25.10 - ATHSCL HEART DISEASE OF [place] CORONARY ARTERY W/O ANG PCTRS Qualifiers: Coronary Disease-Associated Artery/Lesion type: [place] artery [place] vs. transplanted heart: [place] heart Associated angina: without angina Qualified Code(s): I25.10 - Atherosclerotic heart disease of [place] coronary artery without angina pectoris (7) Diabetes mellitus type 2 with peripheral artery disease Code(s): E11.51 - TYPE 2 DIABETES W DIABETIC PERIPHERAL ANGIOPATH W/O GANGRENE (8) Hyperlipidemia Code(s): E78.5 - HYPERLIPIDEMIA, UNSPECIFIED Qualifiers: Hyperlipidemia type: pure hypercholesterolemia Qualified Code(s): E78.00 - Pure hypercholesterolemia, unspecified (9) Hypertension Code(s): I10 - ESSENTIAL (PRIMARY) HYPERTENSION Qualifiers: Hypertension type: essential hypertension Qualified Code(s): I10 - Essential (primary) hypertension Assessment/Plan 1. Syncope, etiology to be determined, vasovagal rule out autonomic disorder 2. Hypertension 3. Type 2 diabetes mellitus 4. Hypercholesterolemia 5. PAD post [employer], toe amputation, heel ulcer debridement 6. Carotid artery disease post endarterectomy 7. Restrictive lung disease 8. Anemia 9. CKD PLAN: 1. Transthoracic echocardiography to assess LV/RV and valvular function 2. Telemetry monitoring 3. Check for orthostatic hypotension 4. Currently on Metoprolol and Amlodipine, but to be used with caution 5. Likely will need upright tilt table testing, but can be done as outpatient ( already scheduled latter part of October) 6. Continue statin 7. Continue pulmonary treatment 8. Continue Plavix for vascular disease 9. Wound care Further plans are to follow Branden Maddox MD
[2017-11-09] MEDS ORDERED: INSULIN REGULAR HUMAN 100 UNITS/ML *VIAL ONE (17:12)
[2017-11-09 18:40] VITALS: BMI 28.1
--- NOTE | 2017-11-09 20:10 | PN ---
Progress Note (short form) - Note Progress Note: Renal follow up for JESÚS Pt seen and examined in the ER awake and alert no sob, chest pain on IVF making urine Vital Signs Temperature 97.2 F L 11/08/17 14:05 Pulse Rate 79 11/09/17 18:36 Respiratory Rate 18 11/09/17 18:36 Blood Pressure 159/81 11/09/17 18:36 O2 Sat by Pulse Oximetry (%) 97 11/09/17 18:36 Intake & Output 11/06/17 11/07/17 11/08/17 11/09/17 23:59 23:59 23:59 23:59 Weight 83.007 kg 81.647 kg NAD on NC O2 RRR CTA soft NT Trace Edema CBC, BMP 11/09/17 07:30 11/09/17 07:30 Current Medications Albuterol/Ipratropium (Duoneb -) 1 amp NEB Q4H PRN PRN Reason: SHORTNESS OF BREATH Allopurinol (Zyloprim -) 200 mg PO DAILY [facility] Last Admin: 11/09/17 09:54 Dose: 200 mg Amlodipine Besylate (Norvasc -) 5 mg PO DAILY [facility] Last Admin: 11/09/17 09:54 Dose: 5 mg Clopidogrel Bisulfate (Plavix -) 75 mg PO DAILY [facility] Last Admin: 11/09/17 09:54 Dose: 75 mg Docusate Sodium (Colace -) 100 mg PO TID [facility] Last Admin: 11/09/17 15:27 Dose: 100 mg Ferrous Sulfate (Feosol -) 325 mg PO BID [facility] Last Admin: 11/09/17 09:54 Dose: 325 mg Sodium Chloride (Normal Saline -) 1,000 mls @ 75 mls/hr IV ASDIR [facility] Last Admin: 11/09/17 08:34 Dose: 75 mls/hr Insulin Aspart (Novolog Vial Sliding Scale -) 1 vial SQ ACHS [facility] PRN Reason: Protocol Last Admin: 11/09/17 17:08 Dose: 2 units Metoprolol Succinate (Toprol Xl -) 25 mg PO DAILY [facility] Last Admin: 11/09/17 09:54 Dose: 25 mg Non-Formulary Medication (Memantine Hcl [Namenda Xr]) 7 mg PO DAILY [facility] Pantoprazole Sodium (Protonix -) 40 mg PO DAILY [facility] Last Admin: 11/09/17 09:54 Dose: 40 mg Pramipexole Dihydrochloride (Mirapex -) 0.5 mg PO HS [facility] Last Admin: 11/09/17 06:38 Dose: Not Given Pregabalin (Lyrica -) 150 mg PO BID [facility] Last Admin: 11/09/17 09:54 Dose: 150 mg Silver Sulfadiazine (Silvadene -) 1 applic TP DAILY [facility] Last Admin: 11/09/17 09:54 Dose: 1 mg Solifenacin (Vesicare -) 5 mg PO DAILY [facility] Last Admin: 11/09/17 09:54 Dose: 5 mg Tamsulosin HCl (Flomax -) 0.4 mg PO DAILY@0830 [facility] Last Admin: 11/09/17 09:16 Dose: 0.4 mg Trazodone HCl (Desyrel -) 50 mg PO [facility] Last Admin: 11/09/17 06:38 Dose: Not Given 67 year old gentleman with PMhx of CKD (baseline Cr ~1.5), CAD, PVD, Carotid stenosis, DM Type 2 who presented with complaints of SOB and syncope at home and found to have JESÚS on CKD. #JESÚS on CKD #Syncope #Hx of CHF #COPD on Home O2 #Microcytic Anemia #BPH #Hypocalcemia Renal function improving continue NS Trend bUN/cr continue work up as per cardiology Deven Layton DO
[2017-11-09] MEDS: ALBUTEROL SO4 2.5/IPRATROPIUM 0.5 INH SOL 3 ML VIAL.NEB. NEB PRN (22:20)
[2017-11-10] MEDS: DOCUSATE SODIUM 100 MG CAPSULE (FP) PO SCH ×3 (05:04→21:51)
[2017-11-10] MEDS: SODIUM CHLORIDE 1,000 ML IV SCH (05:16)
[2017-11-10] MEDS: INSULIN SLIDING SCALE (NOVOLOG) 1 VIAL SQ SCH ×4 (06:12→21:51)
[2017-11-10 08:12] LABS: SERUM IRON SATURATION 10 % (15-55); TOTAL IRON BINDING CAPACITY 340 ug/dL (250-450); UIBC 305 ug/dL (111-343)
[2017-11-10] MEDS: SOLIFENACIN SUCCINATE 5 MG TAB (FP) PO SCH (09:13)
[2017-11-10] MEDS: amLODIPine BESYLATE 5 MG TABLET (FP) PO SCH (09:13)
[2017-11-10] MEDS: PREGABALIN 75 MG CAPSULE PO SCH ×2 (09:13→21:51)
[2017-11-10] MEDS: metoPROLOL SUCCINATE 25 MG TAB.SR.24H (FP) PO SCH (09:13)
[2017-11-10] MEDS: PANTOPRAZOLE 40 MG TABLET (FP) PO SCH (09:14)
[2017-11-10] MEDS: TAMSULOSIN HCL 0.4 MG CAP.ER.24H (FP) PO SCH (09:14)
[2017-11-10] MEDS: ALLOPURINOL 100 MG TABLET (FP) PO SCH (09:14)
[2017-11-10] MEDS: FERROUS SO4 325 MG TABLET (FP) PO SCH ×2 (09:14→21:51)
[2017-11-10] MEDS: CLOPIDOGREL BISULFATE 75 MG TABLET (FP) PO SCH (09:14)
[2017-11-10] MEDS: SILVER SULFADIAZINE 1% TOP CREAM 50 GM JAR TP SCH (10:30)
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
[2017-11-10 12:29] LABS: ANION GAP 4 (8-16); BLOOD UREA NITROGEN 20 mg/dL (7-18); CALCIUM 8.3 mg/dL (8.5-10.1); CHLORIDE 110 mmol/L (98-107); CO2 29 mmol/L (21-32); CREATININE 1.4 mg/dL (0.7-1.3); GLUCOSE,RANDOM 172 mg/dL (74-106); PHOSPHOROUS 2.6 mg/dL (2.5-4.9); SODIUM 143 mmol/L (136-145)
--- NOTE | 2017-11-10 12:42 | PN ---
Progress Note, Physician Chief Complaint: Feels better History of Present Illness: Patient was seen and examined. Awake and alert. Chart was reviewed Denies chest pain or palpitations Still with slight difficulty breathing due to stuffed nose - Current Medication List Current Medications: Active Medications Albuterol/Ipratropium (Duoneb -) 1 amp NEB Q4H PRN PRN Reason: SHORTNESS OF BREATH Last Admin: 11/09/17 22:20 Dose: 1 amp Allopurinol (Zyloprim -) 200 mg PO DAILY [facility] Last Admin: 11/10/17 09:14 Dose: 200 mg Amlodipine Besylate (Norvasc -) 5 mg PO DAILY [facility] Last Admin: 11/10/17 09:13 Dose: 5 mg Clopidogrel Bisulfate (Plavix -) 75 mg PO DAILY [facility] Last Admin: 11/10/17 09:14 Dose: 75 mg Docusate Sodium (Colace -) 100 mg PO TID [facility] Last Admin: 11/10/17 05:04 Dose: Not Given Ferrous Sulfate (Feosol -) 325 mg PO BID [facility] Last Admin: 11/10/17 09:14 Dose: 325 mg Sodium Chloride (Normal Saline -) 1,000 mls @ 75 mls/hr IV ASDIR [facility] Last Admin: 11/10/17 05:16 Dose: 75 mls/hr Insulin Aspart (Novolog Vial Sliding Scale -) 1 vial SQ ACHS [facility] PRN Reason: Protocol Last Admin: 11/10/17 12:08 Dose: 2 units Metoprolol Succinate (Toprol Xl -) 25 mg PO DAILY [facility] Last Admin: 11/10/17 09:13 Dose: 25 mg Non-Formulary Medication (Memantine Hcl [Namenda Xr]) 7 mg PO DAILY [facility] Pantoprazole Sodium (Protonix -) 40 mg PO DAILY [facility] Last Admin: 11/10/17 09:14 Dose: 40 mg Pramipexole Dihydrochloride (Mirapex -) 0.5 mg PO HS [facility] Last Admin: 11/09/17 22:00 Dose: 0.5 mg Pregabalin (Lyrica -) 150 mg PO BID [facility] Last Admin: 11/10/17 09:13 Dose: 150 mg Silver Sulfadiazine (Silvadene -) 1 applic TP DAILY [facility] Last Admin: 11/10/17 10:30 Dose: 1 applic Solifenacin (Vesicare -) 5 mg PO DAILY [facility] Last Admin: 11/10/17 09:13 Dose: 5 mg Tamsulosin HCl (Flomax -) 0.4 mg PO DAILY@0830 [facility] Last Admin: 11/10/17 09:14 Dose: 0.4 mg Trazodone HCl (Desyrel -) 50 mg PO HS [facility] Last Admin: 11/09/17 22:00 Dose: 50 mg - Objective Vital Signs: Vital Signs Temperature 98.2 F 11/10/17 06:00 Pulse Rate 69 11/10/17 06:00 Respiratory Rate 20 11/10/17 06:00 Blood Pressure 133/69 11/10/17 06:00 O2 Sat by Pulse Oximetry (%) 91 L 11/09/17 22:00 Eyes: Yes: PERRL HENT: Yes: Atraumatic Neck: Yes: Supple Cardiovascular: Yes: Regular Rate and Rhythm, S1, S2 Respiratory: Yes: Diminished Gastrointestinal: Yes: Normal Bowel Sounds, Soft. No: Tenderness Edema: No Additional Findings/Remarks: - Review of Systems Constitutional: denies: Chills, Fever Cardiovascular: denies: Chest Pain, Palpitations, Shortness of Breath Respiratory: denies: Cough, Hemoptysis, Orthopnea, PND, SOB, SOB on Exertion Gastrointestinal: denies: Abdominal Pain, Constipation, Diarrhea, Melena, Nausea , Rectal Bleeding, Vomiting Neurological: reports: Syncope. denies: Dizziness, Headache, Seizure Labs: CBC, BMP 11/09/17 07:30 11/10/17 11:50 Problem List - Problems (1) Syncope Code(s): R55 - SYNCOPE AND COLLAPSE Qualifiers: Syncope type: unspecified Qualified Code(s): R55 - Syncope and collapse (2) Acute kidney injury superimposed on CKD Code(s): N17.9 - ACUTE KIDNEY FAILURE, UNSPECIFIED; N18.9 - CHRONIC KIDNEY DISEASE, UNSPECIFIED (3) Diabetic foot Code(s): E11.8 - TYPE 2 DIABETES MELLITUS WITH UNSPECIFIED COMPLICATIONS (4) Anemia Code(s): D64.9 - ANEMIA, UNSPECIFIED Qualifiers: Anemia type: unspecified type Qualified Code(s): D64.9 - Anemia, unspecified (5) COPD (chronic obstructive pulmonary disease) Code(s): J44.9 - CHRONIC OBSTRUCTIVE PULMONARY DISEASE, UNSPECIFIED Qualifiers: COPD type: COPD with acute lower respiratory infection Qualified Code(s): J44.0 - Chronic obstructive pulmonary disease with acute lower respiratory infection (6) Coronary artery disease Code(s): I25.10 - ATHSCL HEART DISEASE OF [place] CORONARY ARTERY W/O ANG PCTRS Qualifiers: Coronary Disease-Associated Artery/Lesion type: [place] artery [place] vs. transplanted heart: [place] heart Associated angina: without angina Qualified Code(s): I25.10 - Atherosclerotic heart disease of [place] coronary artery without angina pectoris (7) Diabetes mellitus type 2 with peripheral artery disease Code(s): E11.51 - TYPE 2 DIABETES W DIABETIC PERIPHERAL ANGIOPATH W/O GANGR[place] (8) Hyperlipidemia Code(s): E78.5 - HYPERLIPIDEMIA, UNSPECIFIED Qualifiers: Hyperlipidemia type: pure hypercholesterolemia Qualified Code(s): E78.00 - Pure hypercholesterolemia, unspecified (9) Hypertension Code(s): I10 - ESSENTIAL (PRIMARY) HYPERTENSION Qualifiers: Hypertension type: essential hypertension Qualified Code(s): I10 - Essential (primary) hypertension Assessment/Plan 1. Syncope, etiology to be determined, vasovagal rule out autonomic dysfunction 2. Hypertension 3. Type 2 diabetes mellitus 4. Hypercholesterolemia 5. PAD post [employer], toe amputation, heel ulcer debridement 6. Carotid artery disease post endarterectomy 7. Restrictive lung disease 8. Anemia 9. CKD PLAN: 1. Transthoracic echocardiography revealed normal LV systolic function, trace TR 2. Check for orthostatic hypotension 3. Currently on Metoprolol and Amlodipine, but to be used with caution 4. Likely will need upright tilt table testing, but can be done as outpatient ( scheduled November 16 as outpatient) 6. Continue statin 7. Continue pulmonary treatment 8. Continue Plavix for vascular disease 9. Wound care Further plans are to follow Branden Maddox MD
--- NOTE | 2017-11-10 14:37 | PN ---
Progress Note, Physician - Current Medication List Current Medications: Active Medications Albuterol/Ipratropium (Duoneb -) 1 amp NEB Q4H PRN PRN Reason: SHORTNESS OF BREATH Last Admin: 11/09/17 22:20 Dose: 1 amp Allopurinol (Zyloprim -) 200 mg PO DAILY [facility] Last Admin: 11/10/17 09:14 Dose: 200 mg Amlodipine Besylate (Norvasc -) 5 mg PO DAILY [facility] Last Admin: 11/10/17 09:13 Dose: 5 mg Clopidogrel Bisulfate (Plavix -) 75 mg PO DAILY [facility] Last Admin: 11/10/17 09:14 Dose: 75 mg Docusate Sodium (Colace -) 100 mg PO TID [facility] Last Admin: 11/10/17 05:04 Dose: Not Given Ferrous Sulfate (Feosol -) 325 mg PO BID [facility] Last Admin: 11/10/17 09:14 Dose: 325 mg Sodium Chloride (Normal Saline -) 1,000 mls @ 75 mls/hr IV ASDIR [facility] Last Admin: 11/10/17 05:16 Dose: 75 mls/hr Insulin Aspart (Novolog Vial Sliding Scale -) 1 vial SQ ACHS [facility] PRN Reason: Protocol Last Admin: 11/10/17 12:08 Dose: 2 units Metoprolol Succinate (Toprol Xl -) 25 mg PO DAILY [facility] Last Admin: 11/10/17 09:13 Dose: 25 mg Non-Formulary Medication (Memantine Hcl [Namenda Xr]) 7 mg PO DAILY [facility] Pantoprazole Sodium (Protonix -) 40 mg PO DAILY [facility] Last Admin: 11/10/17 09:14 Dose: 40 mg Pramipexole Dihydrochloride (Mirapex -) 0.5 mg PO HS [facility] Last Admin: 11/09/17 22:00 Dose: 0.5 mg Pregabalin (Lyrica -) 150 mg PO BID [facility] Last Admin: 11/10/17 09:13 Dose: 150 mg Silver Sulfadiazine (Silvadene -) 1 applic TP DAILY [facility] Last Admin: 11/10/17 10:30 Dose: 1 applic Solifenacin (Vesicare -) 5 mg PO DAILY [facility] Last Admin: 11/10/17 09:13 Dose: 5 mg Tamsulosin HCl (Flomax -) 0.4 mg PO DAILY@0830 [facility] Last Admin: 11/10/17 09:14 Dose: 0.4 mg Trazodone HCl (Desyrel -) 50 mg PO [facility] Last Admin: 11/09/17 22:00 Dose: 50 mg - Objective Vital Signs: Vital Signs Temperature 98.2 F 11/10/17 06:00 Pulse Rate 69 11/10/17 06:00 Respiratory Rate 20 11/10/17 06:00 Blood Pressure 133/69 11/10/17 06:00 O2 Sat by Pulse Oximetry (%) 91 L 11/09/17 22:00 Labs: CBC, BMP 11/09/17 07:30 11/10/17 11:50
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
--- NOTE | 2017-11-10 17:10 | PN ---
Progress Note (short form) - Note Progress Note: Renal follow up for JESÚS Pt seen and examined at the bedside awake and alert no acute complaints no sob, chest pain, abd pain, N/V Vital Signs Temperature 97.9 F 11/10/17 14:43 Pulse Rate 70 11/10/17 14:39 Respiratory Rate 18 11/10/17 14:43 Blood Pressure 139/76 11/10/17 14:39 O2 Sat by Pulse Oximetry (%) 91 L 11/09/17 22:00 Intake & Output 11/07/17 11/08/17 11/09/17 11/10/17 23:59 23:59 23:59 23:59 Intake Total 505 350 Output Total 450 Balance 505 -100 Weight 83.007 kg 78.562 kg NAD on NC O2 RRR CTA soft NT Trace Edema CBC, BMP 11/09/17 07:30 11/10/17 11:50 Current Medications Albuterol/Ipratropium (Duoneb -) 1 amp NEB Q4H PRN PRN Reason: SHORTNESS OF BREATH Last Admin: 11/09/17 22:20 Dose: 1 amp Allopurinol (Zyloprim -) 200 mg PO DAILY [facility] Last Admin: 11/10/17 09:14 Dose: 200 mg Amlodipine Besylate (Norvasc -) 5 mg PO DAILY [facility] Last Admin: 11/10/17 09:13 Dose: 5 mg Clindamycin HCl (Cleocin -) 300 mg PO Q6HPO [facility] Clopidogrel Bisulfate (Plavix -) 75 mg PO DAILY [facility] Last Admin: 11/10/17 09:14 Dose: 75 mg Docusate Sodium (Colace -) 100 mg PO TID [facility] Last Admin: 11/10/17 14:45 Dose: Not Given Ferrous Sulfate (Feosol -) 325 mg PO BID [facility] Last Admin: 11/10/17 09:14 Dose: 325 mg Sodium Chloride (Normal Saline -) 1,000 mls @ 75 mls/hr IV ASDIR [facility] Last Admin: 11/10/17 05:16 Dose: 75 mls/hr Insulin Aspart (Novolog Vial Sliding Scale -) 1 vial SQ ACHS [facility] PRN Reason: Protocol Last Admin: 11/10/17 17:04 Dose: 2 units Metoprolol Succinate (Toprol Xl -) 25 mg PO DAILY [facility] Last Admin: 11/10/17 09:13 Dose: 25 mg Non-Formulary Medication (Memantine Hcl [Namenda Xr]) 7 mg PO DAILY [facility] Pantoprazole Sodium (Protonix -) 40 mg PO DAILY [facility] Last Admin: 11/10/17 09:14 Dose: 40 mg Pramipexole Dihydrochloride (Mirapex -) 0.5 mg PO HS [facility] Last Admin: 11/09/17 22:00 Dose: 0.5 mg Pregabalin (Lyrica -) 150 mg PO BID [facility] Last Admin: 11/10/17 09:13 Dose: 150 mg Silver Sulfadiazine (Silvadene -) 1 applic TP DAILY [facility] Last Admin: 11/10/17 10:30 Dose: 1 applic Solifenacin (Vesicare -) 5 mg PO DAILY [facility] Last Admin: 11/10/17 09:13 Dose: 5 mg Tamsulosin HCl (Flomax -) 0.4 mg PO DAILY@0830 [facility] Last Admin: 11/10/17 09:14 Dose: 0.4 mg Trazodone HCl (Desyrel -) 50 mg PO HS [facility] Last Admin: 11/09/17 22:00 Dose: 50 mg 67 year old gentleman with PMhx of CKD (baseline Cr ~1.5), CAD, PVD, Carotid stenosis, DM Type 2 who presented with complaints of SOB and syncope at home and found to have JESÚS on CKD. #JESÚS on CKD #Syncope #Hx of CHF #COPD on Home O2 #Microcytic Anemia #BPH #Hypocalcemia Renal function improving with IVF continue IVF until the AM and then reaccess oral intake as tolerated no signs of volume overload Cardiology follow up Continue Flomax Iron saturation is low, on oral iron Deven Layton DO
[2017-11-10] MEDS: CLINDAMYCIN HCL 150 MG CAPSULE (FP) PO SCH ×2 (17:38→23:26)
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
[2017-11-10] MEDS: traZODone HCL 50 MG TABLET (FP) PO SCH (21:51)
[2017-11-10] MEDS: PRAMIPEXOLE DIHYDROCHLORIDE 0.5 MG TABLET PO SCH (21:51)
[2017-11-11] MEDS: DOCUSATE SODIUM 100 MG CAPSULE (FP) PO SCH ×3 (05:26→22:14)
[2017-11-11] MEDS: SODIUM CHLORIDE 1,000 ML IV SCH (05:26)
[2017-11-11] MEDS: CLINDAMYCIN HCL 150 MG CAPSULE (FP) PO SCH ×3 (05:36→17:02)
[2017-11-11] MEDS: INSULIN SLIDING SCALE (NOVOLOG) 1 VIAL SQ SCH ×4 (06:11→22:14)
[2017-11-11 07:48] LABS: ANION GAP 9 (8-16); BLOOD UREA NITROGEN 14 mg/dL (7-18); CALCIUM 8.7 mg/dL (8.5-10.1); CHLORIDE 112 mmol/L (98-107); CO2 23 mmol/L (21-32); CREATININE 1.3 mg/dL (0.7-1.3); GLUCOSE,RANDOM 99 mg/dL (74-106); MAGNESIUM 1.8 mg/dL (1.8-2.4); PHOSPHOROUS 2.4 mg/dL (2.5-4.9); POTASSIUM 4.2 mmol/L (3.5-5.1); SODIUM 144 mmol/L (136-145)
[2017-11-11] MEDS ORDERED: PT OWN MED DRAWER 7, Y5N ONE (09:31)
[2017-11-11] MEDS: SOLIFENACIN SUCCINATE 5 MG TAB (FP) PO SCH (09:33)
[2017-11-11] MEDS: amLODIPine BESYLATE 5 MG TABLET (FP) PO SCH (09:33)
[2017-11-11] MEDS: ALLOPURINOL 100 MG TABLET (FP) PO SCH (09:33)
[2017-11-11] MEDS: TAMSULOSIN HCL 0.4 MG CAP.ER.24H (FP) PO SCH (09:33)
[2017-11-11] MEDS: CLOPIDOGREL BISULFATE 75 MG TABLET (FP) PO SCH (09:34)
[2017-11-11] MEDS: PANTOPRAZOLE 40 MG TABLET (FP) PO SCH (09:34)
[2017-11-11] MEDS: FERROUS SO4 325 MG TABLET (FP) PO SCH ×2 (09:34→22:14)
[2017-11-11] MEDS: PREGABALIN 75 MG CAPSULE PO SCH ×2 (09:34→22:14)
[2017-11-11] MEDS: metoPROLOL SUCCINATE 25 MG TAB.SR.24H (FP) PO SCH (09:34)
[2017-11-11] MEDS: SILVER SULFADIAZINE 1% TOP CREAM 50 GM JAR TP SCH (09:43)
[2017-11-11] MEDS: ALBUTEROL SO4 2.5/IPRATROPIUM 0.5 INH SOL 3 ML VIAL.NEB. NEB PRN ×2 (10:17→21:27)
[2017-11-11 10:33] LABS: BASO % 1.2 % (0-2.0); EOS % 3.2 % (0-4.5); HEMATOCRIT 33.1 % (35.4-49); HEMOGLOBIN 10.1 GM/dL (11.7-16.9); LYMPH % 17.1 % (8-40); MCH 21.9 pg (25.7-33.7); MCHC 30.6 g/dl (32.0-35.9); MEAN CELL VOLUME 71.4 fl (80-96); MEAN PLT VOLUME 8.7 fl (7.5-11.1); MONO % 9.6 % (3.8-10.2); NEUT % 68.9 % (42.8-82.8); PLATELET COUNT 103 K/MM3 (134-434); RBC 4.63 M/mm3 (4.00-5.60); RDW 21.1 % (11.9-15.9); WHITE BLOOD COUNT 7.8 K/mm3 (4.0-10.0)
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
--- NOTE | 2017-11-11 15:05 | PN ---
Progress Note (short form) - Note Progress Note: Renal follow up for JESÚS Pt seen and examined at the bedside no acute complaints no sob, chest pain, abd pain, N/V Vital Signs Temperature 98.6 F 11/11/17 14:00 Pulse Rate 71 11/11/17 14:00 Respiratory Rate 20 11/11/17 14:00 Blood Pressure 143/76 11/11/17 14:00 O2 Sat by Pulse Oximetry (%) 94 L 11/11/17 09:00 Intake & Output 11/08/17 11/09/17 11/10/17 11/11/17 23:59 23:59 23:59 23:59 Intake Total 505 1745 Output Total 450 200 Balance 505 1295 -200 Weight 78.562 kg NAD on NC O2 RRR CTA soft NT Trace Edema CBC, BMP 11/11/17 10:00 11/11/17 06:00 Current Medications Albuterol/Ipratropium (Duoneb -) 1 amp NEB Q4H PRN PRN Reason: SHORTNESS OF BREATH Last Admin: 11/11/17 10:17 Dose: 1 amp Allopurinol (Zyloprim -) 200 mg PO DAILY [facility] Last Admin: 11/11/17 09:33 Dose: 200 mg Amlodipine Besylate (Norvasc -) 5 mg PO DAILY [facility] Last Admin: 11/11/17 09:33 Dose: 5 mg Clindamycin HCl (Cleocin -) 300 mg PO Q6HPO [facility] Last Admin: 11/11/17 12:22 Dose: 300 mg Clopidogrel Bisulfate (Plavix -) 75 mg PO DAILY [facility] Last Admin: 11/11/17 09:34 Dose: 75 mg Docusate Sodium (Colace -) 100 mg PO TID [facility] Last Admin: 11/11/17 13:36 Dose: 100 mg Ferrous Sulfate (Feosol -) 325 mg PO BID [facility] Last Admin: 11/11/17 09:34 Dose: 325 mg Sodium Chloride (Normal Saline -) 1,000 mls @ 75 mls/hr IV ASDIR [facility] Last Admin: 11/11/17 05:26 Dose: Not Given Insulin Aspart (Novolog Vial Sliding Scale -) 1 vial SQ ACHS [facility] PRN Reason: Protocol Last Admin: 11/11/17 11:55 Dose: 2 units Metoprolol Succinate (Toprol Xl -) 25 mg PO DAILY [facility] Last Admin: 11/11/17 09:34 Dose: 25 mg Non-Formulary Medication (Memantine Hcl [Namenda Xr]) 7 mg PO DAILY [facility] Pantoprazole Sodium (Protonix -) 40 mg PO DAILY [facility] Last Admin: 11/11/17 09:34 Dose: 40 mg Pramipexole Dihydrochloride (Mirapex -) 0.5 mg PO [facility] Last Admin: 11/10/17 21:51 Dose: 0.5 mg Pregabalin (Lyrica -) 150 mg PO BID [facility] Last Admin: 11/11/17 09:34 Dose: 150 mg Silver Sulfadiazine (Silvadene -) 1 applic TP DAILY [facility] Last Admin: 11/11/17 09:43 Dose: 1 applic Solifenacin (Vesicare -) 5 mg PO DAILY [facility] Last Admin: 11/11/17 09:33 Dose: 5 mg Tamsulosin HCl (Flomax -) 0.4 mg PO DAILY@0830 [facility] Last Admin: 11/11/17 09:33 Dose: 0.4 mg Trazodone HCl (Desyrel -) 50 mg PO HS [facility] Last Admin: 11/10/17 21:51 Dose: 50 mg 67 year old gentleman with PMhx of CKD (baseline Cr ~1.5), CAD, PVD, Carotid stenosis, DM Type 2 who presented with complaints of SOB and syncope at home and found to have JESÚS on CKD. #JESÚS on CKD #Syncope #Hx of CHF #COPD on Home O2 #Microcytic Anemia #BPH #Hypocalcemia Renal function improved and stable d/c IVF, encouraged oral hydration avoid nsaids will benefit from outpatient renal follow up stable for d/c from renal perspective continue flomax Deven Layton DO
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
[2017-11-11] MEDS: traZODone HCL 50 MG TABLET (FP) PO SCH (22:13)
[2017-11-11] MEDS: PRAMIPEXOLE DIHYDROCHLORIDE 0.5 MG TABLET PO SCH (22:14)
[2017-11-12] MEDS: CLINDAMYCIN HCL 150 MG CAPSULE (FP) PO SCH ×3 (00:15→11:57)
[2017-11-12] MEDS: DOCUSATE SODIUM 100 MG CAPSULE (FP) PO SCH (06:43)
[2017-11-12] MEDS: INSULIN SLIDING SCALE (NOVOLOG) 1 VIAL SQ SCH ×2 (06:43→12:04)
[2017-11-12] MEDS: ALBUTEROL SO4 2.5/IPRATROPIUM 0.5 INH SOL 3 ML VIAL.NEB. NEB PRN (06:55)
[2017-11-12] MEDS: PREGABALIN 75 MG CAPSULE PO SCH (10:27)
[2017-11-12] MEDS: PANTOPRAZOLE 40 MG TABLET (FP) PO SCH (10:27)
[2017-11-12] MEDS: FERROUS SO4 325 MG TABLET (FP) PO SCH (10:27)
[2017-11-12] MEDS: SOLIFENACIN SUCCINATE 5 MG TAB (FP) PO SCH (10:27)
[2017-11-12] MEDS: metoPROLOL SUCCINATE 25 MG TAB.SR.24H (FP) PO SCH (10:27)
[2017-11-12] MEDS: ALLOPURINOL 100 MG TABLET (FP) PO SCH (10:27)
[2017-11-12] MEDS: amLODIPine BESYLATE 5 MG TABLET (FP) PO SCH (10:27)
[2017-11-12] MEDS: TAMSULOSIN HCL 0.4 MG CAP.ER.24H (FP) PO SCH (10:27)
[2017-11-12] MEDS: CLOPIDOGREL BISULFATE 75 MG TABLET (FP) PO SCH (10:27)
[2017-11-12] MEDS: SILVER SULFADIAZINE 1% TOP CREAM 50 GM JAR TP SCH (10:28)
[2017-11-12 10:43] VITALS: BP 107/54; PULSE 79; TEMP 97.6
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
== END 2017-11-12 13:40 | DRG 935 ==
LOC: JER 16:00 → JERBED 22:59 → OBSVTOIN 11-09 15:32 → J4S 11-09 20:42
PROVIDERS: ADMIT Internal Medicine; ATTEND Family Medicine
DX: T20.10XA Burn of first degree of head, face, and neck, unspecified site, initial encounter (principal); N17.9 Acute kidney failure, unspecified; I69.354 Hemiplegia and hemiparesis following cerebral infarction affecting left non-dominant side; E11.22 Type 2 diabetes mellitus with diabetic chronic kidney disease; N18.9 Chronic kidney disease, unspecified; D50.9 Iron deficiency anemia, unspecified; J44.9 Chronic obstructive pulmonary disease, unspecified; K21.9 Gastro-esophageal reflux disease without esophagitis; M10.9 Gout, unspecified; E11.69 Type 2 diabetes mellitus with other specified complication; L08.9 Local infection of the skin and subcutaneous tissue, unspecified; X08.8XXA Exposure to other specified smoke, fire and flames, initial encounter; Y93.9 Activity, unspecified; Y92.89 Other specified places as the place of occurrence of the external cause; Y99.9 Unspecified external cause status; N40.0 Benign prostatic hyperplasia without lower urinary tract symptoms; E83.51 Hypocalcemia; E11.621 Type 2 diabetes mellitus with foot ulcer; R55 Syncope and collapse; G25.81 Restless legs syndrome; I25.10 Atherosclerotic heart disease of native coronary artery without angina pectoris; I12.9 Hypertensive chronic kidney disease with stage 1 through stage 4 chronic kidney disease, or unspecified chronic kidney disease
CPT/HCPCS: 36415; 70450-TC; 71045-TC-FY; 76775-TC; 76856-TC; 80048; 80053; 81003; 82550; 82570; 82728; 82962; 83036; 83540; 83550; 83735; 84100; 84156; 84300; 84443; 84484; 85025; 85027; 87205; 93005; 93010; 93306-TC; 93880-TC; 94010; 94640; 97116-GP; 97161-GP; 99284-25; G0378; J7030

== ENCOUNTER 2018-01-11 12:12 | Inpatient (IN) | payer OTHER, BC ==
[2018-01-11 12:31] VITALS: BMI 28.8
--- NOTE | 2018-01-11 12:47 | PDOC ---
History of Present Illness - General Chief Complaint: Wound Stated Complaint: WOUND Time Seen by Provider: 01/11/18 12:46 - History of Present Illness Initial Comments: 01/11/18 14:47 The patient is a 67-year-old male, with a past medical history of DM, CKD, COPD , CVA, GOUT, HTN, osteomyelitis, and Parkinsons, who was sent down to the ED from the wound center for evaluation of his right foot wound. The patient is followed by Dr. Patel for the wounds on his feet. As per wound center nurse , the patients foot wounds were closed last month and the wound on his right foot is now open and appears to be infected. Patient was also noted to have a low grade fever and was sent to the ED to receive IV antibiotics. The patient denies any chills, nausea, vomiting, diarrhea, or abdominal pain. Denies any shortness of breath or chest pain. Allergies: NKDA PCP: Dr. Giron Past History - Past Medical History Allergies/Adverse Reactions: Allergies Allergy/AdvReac Type Severity Reaction Status Date / Time No Known Drug Allergies Allergy Verified 01/11/18 12:28 Home Medications: Ambulatory Orders Tamsulosin HCl [Flomax -] 0.4 mg PO DAILY 05/11/16 traZODone HCL [Desyrel -] 50 mg PO HS 05/11/16 Metoprolol Succinate [Toprol XL -] 25 mg PO DAILY tab.sr.24h 07/19/16 oxyCODONE HCL [Roxicodone -] 5 mg PO Q8H PRN #30 tablet MDD 3 07/19/16 Memantine HCl [Namenda Xr] 7 mg PO DAILY 07/22/16 Amlodipine Besylate [Norvasc -] 5 mg PO DAILY tablet 10/29/16 Clopidogrel Bisulfate [Plavix -] 75 mg PO DAILY tablet 10/29/16 Pantoprazole Sodium [Protonix] 40 mg PO DAILY 01/25/17 Furosemide [Lasix] 20 mg PO DAILY #0 mg 03/08/17 Ergocalciferol (Vitamin D2) [Vitamin D2] 50,000 unit PO WEEKLY 05/11/17 Pregabalin [Lyrica -] 150 mg PO BID 05/11/17 Docusate Sodium [Colace -] 100 mg PO TID #90 capsule 08/12/17 Atorvastatin Calcium 20 mg PO DAILY 11/08/17 Ferrous Sulfate [Feosol] 325 mg PO BID ud 11/11/17 Insulin Sliding Scale [Novolog Vial Sliding Scale -] 1 vial SQ ACHS units 11/11 Aclidinium [place] [Tudorza Pressair] 1 tab PO DAILY 01/11/18 Ergocalciferol (Vitamin D2) [Drisdol] 1 tab PO DAILY 01/11/18 Lidocaine 5% Patch [Lidoderm -] 1 patch TP DAILY 01/11/18 Pramipexole Di-HCl [Mirapex] 0.5 mg PO DAILY 01/11/18 Anemia: Yes Asthma: Yes Cancer: No Cardiac Disorders: Yes (CAD) CVA: Yes (x5; residual L sided weakness) COPD: Yes (3L O2 NC AT HOME) CHF: No DVT: No Dementia: No Diabetes: Yes (IDDM) GI Disorders: No Disorders: Yes (kidney stones; JESÚS) HTN: Yes Hypercholesterolemia: Yes Liver Disease: No Seizures: No Thyroid Disease: No - Surgical History Abdominal Surgery: No Appendectomy: Yes Cardiac Surgery: No Cholecystectomy: Yes Lung Surgery: No Neurologic Surgery: No Orthopedic Surgery: (Left toe amputation) - Immunization History Immunization Up to Date: Yes - Suicide/Smoking/Psychosocial Hx Smoking Status: No Smoking History: Current some day smoker Have you smoked in the past 12 months: No Number of Cigarettes Smoked Daily: 3 If you are a former smoker, when did you quit?: May 2014 Information on smoking cessation initiated: Yes 'Breaking Loose' booklet given: 08/07/17 Hx Alcohol Use: No Drug/Substance Use Hx: No Substance Use Type: None, Alcohol, Cocaine, Heroin, Marijuana, Opiates, Prescribed, Tranquilizers Hx Substance Use Treatment: No Review of Systems - Review of Systems Comments:: 01/11/18 14:47 GENERAL/CONSTITUTIONAL: No fever or chills. No weakness. HEAD, EYES, EARS, NOSE AND THROAT: No change in vision. No ear pain or discharge. No sore throat. GASTROINTESTINAL: No nausea, vomiting, diarrhea or constipation. GENITOURINARY: No dysuria, frequency, or change in urination. CARDIOVASCULAR: No chest pain or shortness of breath. RESPIRATORY: No cough, wheezing, or hemoptysis. MUSCULOSKELETAL: No joint or muscle swelling or pain. No neck or back pain. SKIN: (+)Right foot wound. NEUROLOGIC: No headache, vertigo, loss of consciousness, or change in strength/ sensation. ENDOCRINE: No increased thirst. No abnormal weight change. HEMATOLOGIC/LYMPHATIC: No anemia, easy bleeding, or history of blood clots. ALLERGIC/IMMUNOLOGIC: No hives or skin allergy. *Physical Exam - Vital Signs Last Vital Signs Temp Pulse Resp BP Pulse Ox 99.1 F 74 16 119/74 99 01/11/18 12:20 01/11/18 12:20 01/11/18 12:20 01/11/18 12:20 01/11/18 12:20 - Physical Exam Comments: 01/11/18 14:48 GENERAL: Awake, alert, and fully oriented, in no acute distress NECK: Normal ROM, supple, no lymphadenopathy, JVD, or masses LUNGS: Breath sounds equal, clear to auscultation bilaterally. No wheezes, and no crackles HEART: Regular rate and rhythm, normal S1 and S2, no murmurs, rubs or gallops ABDOMEN: Soft, nontender, normoactive bowel sounds. No guarding, no rebound. No masses EXTREMITIES: Normal range of motion, no edema. No clubbing or cyanosis. No cords. BACK: No midline spinal tenderness in cervical/thoracic/lumbar region NEUROLOGICAL: Normal speech, equal strength and sensation b/l SKIN: +2cm x 2cm tender round punched out right metatarsal plantar surface ulcer. ED Treatment Course - LABORATORY CBC & Chemistry Diagram: 01/11/18 15:22 01/11/18 14:48 Medical Decision Making - Medical Decision Making 01/11/18 14:49 67-year-old male with multiple medical problems including diabetes complicated by diabetic foot wound presents emergency Department from the wound care clinic for likely infected diabetic foot ulcer. Patient has low-grade elevated temperature to 99. On exam has a round 2 x 2 cm punched-out ulcer that is tender and slightly malodorous, likely infected. Will obtain labs and blood cultures an x-ray to evaluate for osteomyelitis and admit for IV antibiotics 01/11/18 18:14 Case discussed with Argenis Conway pt admitted to Dr. Melissa, jermaine Case discussed in detail with admitting physician including history, physical exam and ancillary studies. Admitting physician has assumed care for the patient, will follow all pending diagnostics and will complete the evaluation and treatment. *DC/Admit/Observation/Transfer Diagnosis at time of Disposition: Diabetic infection of right foot - Discharge Dispostion Decision to Admit order: Yes - Referrals Referrals: Johnny Giron MD, [Primary Care Provider] - - Patient Instructions - Post Discharge Activity - Attestations Physician Attestion: 01/11/18 18:14 I, Dr. Denis Morrison MD, attest that this document has been prepared under my direction and personally reviewed by me in its entirety. I further attest, that it accurately reflects all work, treatment, procedures and medical decision -making performed by me.
[2018-01-11] MEDS ORDERED: VANCOMYCIN 1,000 MG in DEXTROSE 5%-WATER - 250 ML IVPB ONE (13:58)
[2018-01-11] MEDS ORDERED: PIPERACILLIN/TAZOB 4.5 GM 4.5 GM in DEXTROSE 5%-WATER - 100 ML IVPB ONE (13:58)
[2018-01-11] MEDS ORDERED: VANCOMYCIN 1 GRAM (PRE-DOCKED) 1,000 MG/250 ML BAG IVPB ONE (14:24)
[2018-01-11] MEDS ORDERED: PIPERACILLIN/TAZOB 4.5 GM 4.5 GM/100 ML BAG IVPB ONE (14:25)
--- NOTE | 2018-01-11 15:05 | EKG ---
Test Reason : Blood Pressure : / mmHG Vent. Rate : 070 BPM Atrial Rate : 070 BPM P-R Int : 234 ms QRS Dur : 078 ms QT Int : 382 ms P-R-T Axes : 038 118 025 degrees QTc Int : 412 ms SINUS RHYTHM WITH 1ST DEGREE A-V BLOCK LEFT POSTERIOR FASCICULAR BLOCK POSSIBLE INFERIOR INFARCT (CITED ON OR BEFORE 06-AUG-2017) T WAVE ABNORMALITY, CONSIDER ANTERIOR ISCHEMIA ABNORMAL ECG WHEN COMPARED WITH ECG OF 07-NOV-2017 16:19, QUESTIONABLE CHANGE IN INITIAL FORCES OF INFERIOR LEADS INVERTED T WAVES HAVE REPLACED NONSPECIFIC T WAVE ABNORMALITY IN ANTERIOR LEADS Confirmed by ABBY BANEGAS, RODERICK ([id number]) on 01/11/2018 3:04:52 PM Referred By: Confirmed By:RODERICK MORA MD
[2018-01-11 15:48] LABS: MCHC 30.2 g/dl (32.0-35.9); WHITE BLOOD COUNT 9.2 K/mm3 (4.0-10.0)
[2018-01-11] MEDS ORDERED: IPRATROPIUM BR 0.02% 0.5 MG/2.5 ML VIAL.NEB. NEB ONE ×2 (16:12→16:13)
[2018-01-11 16:29] LABS: ANION GAP 10 (8-16); BLOOD UREA NITROGEN 36 mg/dL (7-18); CALCIUM 8.7 mg/dL (8.5-10.1); CHLORIDE 104 mmol/L (98-107); CO2 23 mmol/L (21-32); CREATININE 2.5 mg/dL (0.7-1.3); GLUCOSE,RANDOM 171 mg/dL (74-106); POTASSIUM 5.1 mmol/L (3.5-5.1); SGOT/AST 38 U/L (15-37); SGPT/ALT 25 U/L (12-78); SODIUM 137 mmol/L (136-145)
[2018-01-11 16:30] LABS: ALK PHOS 121 U/L (45-117); BILIRUBIN,TOTAL 0.4 mg/dL (0.2-1.0)
[2018-01-11 16:41] LABS: BASO % 1.1 % (0-2.0); EOS % 3.7 % (0-4.5); MCH 22.4 pg (25.7-33.7); MEAN CELL VOLUME 74.1 fl (80-96); NEUT % 67.2 % (42.8-82.8); RBC 6.21 M/mm3 (4.00-5.60); RDW 19.4 % (11.9-15.9)
[2018-01-11 16:55] LABS: ADD RBC MORPHOLOGY YES; HEMOGLOBIN 13.9 GM/dL (11.7-16.9)
[2018-01-11 18:32] LABS: ANISOCYTOSIS 1+; MACROCYTOSIS 1+; MEAN PLT VOLUME 9.2 fl (7.5-11.1); PLATELET COUNT 75 K/MM3 (134-434)
[2018-01-11 18:34] LABS: OVALOCYTE 1+; PLATELET ESTIMATE SLT DECREASE
--- NOTE | 2018-01-11 19:30 | HP ---
Admitting History and Physical - Primary Care Physician PCP: Johnny Giron MD - Admission Chief Complaint: Right Foot Infection History of Present Illness: This is a 67 y/o man with a PMHx of: CKD, COPD, DM, Gout, Parkinson's, Osteo, Amputations. Who present to the ED sent in by Herbert Oglesby for admission for draining toe rounds, chills. 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: CVA Cardiovascular: Yes: HTN, Hyperlipdemia, Other (PAD) Pulmonary: Yes: Asthma, COPD, O2 Dependent, Sleep Apnea Hepatobiliary: Yes: Cholecystitis Renal/: Yes: Renal Inusuff Musculoskeletal: Yes: Other (chronic foot ulcers) Endocrine: Yes: Diabetes Mellitus - Past Surgical History Past Surgical History: Yes: Amputation (second toe left foot), Appendectomy, Carotid Endarterectomy (right), Cholecystectomy, Hernia Repair, Stent, Tonsillectomy - Smoking History Smoking history: Current some day smoker Have you smoked in the past 12 months: No Aproximately how many cigarettes per day: 3 If you are a former smoker, when did you quit?: May 2014 - Alcohol/Substance Use Hx Alcohol Use: No Number of Drinks Daily: 2 (beer, cr on weekend) History of Substance Use: reports: None - Social History ADL: Independent (uses a walker and wheelchair, in process of getting a scooter) 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 ,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 History of Recent Travel: No Home Medications - Allergies Allergies/Adverse Reactions: Allergies Allergy/AdvReac Type Severity Reaction Status Date / Time No Known Drug Allergies Allergy Verified 01/11/18 12:28 - Home Medications Home Medications: Ambulatory Orders Tamsulosin HCl [Flomax -] 0.4 mg PO DAILY 05/11/16 traZODone HCL [Desyrel -] 50 mg PO HS 05/11/16 Metoprolol Succinate [Toprol XL -] 25 mg PO DAILY tab.sr.24h 07/19/16 oxyCODONE HCL [Roxicodone -] 5 mg PO Q8H PRN #30 tablet MDD 3 07/19/16 Memantine HCl [Namenda Xr] 7 mg PO DAILY 07/22/16 Amlodipine Besylate [Norvasc -] 5 mg PO DAILY tablet 10/29/16 Clopidogrel Bisulfate [Plavix -] 75 mg PO DAILY tablet 10/29/16 Pantoprazole Sodium [Protonix] 40 mg PO DAILY 01/25/17 Furosemide [Lasix] 20 mg PO DAILY #0 mg 03/08/17 Ergocalciferol (Vitamin D2) [Vitamin D2] 50,000 unit PO WEEKLY 05/11/17 Pregabalin [Lyrica -] 150 mg PO BID 05/11/17 Docusate Sodium [Colace -] 100 mg PO TID #90 capsule 08/12/17 Atorvastatin Calcium 20 mg PO DAILY 11/08/17 Ferrous Sulfate [Feosol] 325 mg PO BID ud 11/11/17 Insulin Sliding Scale [Novolog Vial Sliding Scale -] 1 vial SQ ACHS units 11/11 Aclidinium [place] [Tudorza Pressair] 1 tab PO DAILY 01/11/18 Ergocalciferol (Vitamin D2) [Drisdol] 1 tab PO DAILY 01/11/18 Lidocaine 5% Patch [Lidoderm -] 1 patch TP DAILY 01/11/18 Pramipexole Di-HCl [Mirapex] 0.5 mg PO DAILY 01/11/18 Family Disease History - Family Disease History Family Disease History: Diabetes: Mother (htn), CA: Father (htn, prostate CA), Other: Father, Mother Review of Systems - Review of Systems Constitutional: reports: Chills Eyes: reports: No Symptoms HENT: reports: No Symptoms Neck: reports: No Symptoms Cardiovascular: reports: No Symptoms Respiratory: reports: No Symptoms Gastrointestinal: reports: No Symptoms Breasts: reports: No Symptoms Reported Musculoskeletal: reports: Extremity Pain, Other Integumentary: reports: Erythema, Wound Neurological: reports: No Symptoms Endocrine: reports: No Symptoms Hematology/Lymphatic: reports: No Symptoms Psychiatric: reports: No Symptoms Physical Examination Vital Signs: Vital Signs Temperature 98.8 F 01/11/18 16:35 Pulse Rate 70 01/11/18 16:35 Respiratory Rate 20 01/11/18 16:35 Blood Pressure 115/76 01/11/18 16:35 O2 Sat by Pulse Oximetry (%) 98 01/11/18 16:35 Labs: CBC, BMP 01/11/18 15:22 01/11/18 14:48 Imaging - Results X-ray: Report Reviewed, Image Reviewed Problem List - Problems (1) Diabetic infection of right foot Code(s): E11.69 - TYPE 2 DIABETES MELLITUS WITH OTHER SPECIFIED COMPLICATION; L08.9 - LOCAL INFECTION OF THE SKIN AND SUBCUTANEOUS TISSUE, UNSP (2) COPD exacerbation Code(s): J44.1 - CHRONIC OBSTRUCTIVE PULMONARY DISEASE W (ACUTE) EXACERBATION (3) Charcot foot due to diabetes mellitus Code(s): E11.610 - TYPE 2 DIABETES MELLITUS W DIABETIC NEUROPATHIC ARTHROPATHY (4) Renal insufficiency Code(s): N28.9 - DISORDER OF KIDNEY AND URETER, UNSPECIFIED (5) Smoking addiction Code(s): F17.200 - NICOTINE DEPENDENCE, UNSPECIFIED, UNCOMPLICATED (6) CKD (chronic kidney disease) Code(s): N18.9 - CHRONIC KIDNEY DISEASE, UNSPECIFIED Qualifiers: Chronic kidney disease stage: stage 3 (moderate) Qualified Code(s): N18.3 - Chronic kidney disease, stage 3 (moderate) (7) COPD (chronic obstructive pulmonary disease) Code(s): J44.9 - CHRONIC OBSTRUCTIVE PULMONARY DISEASE, UNSPECIFIED Qualifiers: COPD type: COPD with acute lower respiratory infection Qualified Code(s): J44.0 - Chronic obstructive pulmonary disease with acute lower respiratory infection (8) Diabetes mellitus type 2 with peripheral artery disease Code(s): E11.51 - TYPE 2 DIABETES W DIABETIC PERIPHERAL ANGIOPATH W/O GANGRENE (9) History of hypertension Code(s): Z86.79 - PERSONAL HISTORY OF OTHER DISEASES OF THE CIRCULATORY SYSTEM (10) Hyperlipidemia Code(s): E78.5 - HYPERLIPIDEMIA, UNSPECIFIED Qualifiers: Hyperlipidemia type: pure hypercholesterolemia Qualified Code(s): E78.00 - Pure hypercholesterolemia, unspecified (11) Iron deficiency anemia Code(s): D50.9 - IRON DEFICIENCY ANEMIA, UNSPECIFIED (12) Peripheral artery disease Code(s): I73.9 - PERIPHERAL VASCULAR DISEASE, UNSPECIFIED Assessment/Plan This is a 67 y/o man with CKD, DM , Osteo, COPD, Parkinson's Disease, Amputations, Gout. Admitted for a Diabetic Wound Infection. Plan: Will admit to M/S Give Vancomycin, Zosyn in ED, will continue renal dosing Appreciate Vacular Consult Appreciate ID consult Foot xray reviewed Consider MRI r/o Osteo Elevate extremity Monitor vitals Monitor CBC, BMP Pain Mgmt Will continue home meds BGMs ISS FEN- replete lytes, NPO DVT ppx- OOB, SCDs, Hold ACs secondary to thrombocytopenia Code Status: Full Code Dispo: Requires Inpatient Care Visit type - Emergency Visit Emergency Visit: Yes ED Registration Date: 01/11/18 Care time: The patient presented to the Emergency Department on the above date and was hospitalized for further evaluation of their emergent condition. - New Patient This patient is new to me today: Yes Date on this admission: 01/11/18 - Critical Care Critical Care patient: No Hospitalist Screening - Colonoscopy Questionnaire Colonoscopy Questionnaire: Colonoscopy Questionnaire - Patient: 50 - 75 years old and never had a screening colonoscopy: No History of colon or rectal polyps, or CA: No History of IBD, Crohn's disease or UC: No History of abdominal radiation therapy as a child: No - Relative: 1 with colon or rectal CA, or polyps at age 60 or younger: No Colon or rectal CA diagnosed at age 45 or younger: No Multiple relatives with colon or rectal CA: No - Outcome: Screening Result: Negative Screen
[2018-01-12] MEDS ORDERED: PIPERACILLIN/TAZOBACTAM 2.25 GM VIAL IVPB ONE ×4 (03:28→19:53)
[2018-01-12] MEDS ORDERED: DEXTROSE 5%-WATER - 50 ML IVPB ONE ×4 (03:29→19:54)
[2018-01-12] MEDS ORDERED: VANCOMYCIN 1,000 MG in DEXTROSE 5%-WATER - 250 ML IVPB ONE ×2 (04:00→16:00)
[2018-01-12 08:56] LABS: ANION GAP 8 (8-16); BLOOD UREA NITROGEN 36 mg/dL (7-18); CALCIUM 8.7 mg/dL (8.5-10.1); CHLORIDE 102 mmol/L (98-107); CO2 28 mmol/L (21-32); CREATININE 2.4 mg/dL (0.7-1.3); GLUCOSE,RANDOM 167 mg/dL (74-106); POTASSIUM 4.9 mmol/L (3.5-5.1); SODIUM 138 mmol/L (136-145)
[2018-01-12 09:04] LABS: BASO % 0.7 % (0-2.0); EOS % 6.8 % (0-4.5); HEMATOCRIT 42.1 % (35.4-49); HEMOGLOBIN 12.9 GM/dL (11.7-16.9); LYMPH % 15.9 % (8-40); MCH 22.4 pg (25.7-33.7); MCHC 30.6 g/dl (32.0-35.9); MEAN CELL VOLUME 73.1 fl (80-96); MEAN PLT VOLUME 9.3 fl (7.5-11.1); MONO % 10.5 % (3.8-10.2); NEUT % 66.1 % (42.8-82.8); PLATELET COUNT 142 K/MM3 (134-434); RBC 5.76 M/mm3 (4.00-5.60); RDW 19.7 % (11.9-15.9); WHITE BLOOD COUNT 6.6 K/mm3 (4.0-10.0)
[2018-01-12] MEDS: PIPERACILLIN/TAZOB 2.25 GM 2.25 GM in DEXTROSE 5%-WATER - 50 ML IVPB SCH ×4 (09:32→21:46)
[2018-01-12] MEDS ORDERED: VANCOMYCIN 1,000 MG in DEXTROSE 5%-WATER - 250 ML IVPB SCH (10:00)
[2018-01-12] MEDS ORDERED: PIPERACILLIN/TAZOB 2.25 GM 2.25 GM in SODIUM CHLORIDE 50 ML IVPB SCH (13:26)
[2018-01-12] MEDS ORDERED: VANCOMYCIN 1,000 MG in SODIUM CHLORIDE 250 ML IVPB SCH (13:26)
--- NOTE | 2018-01-12 13:43 | PN ---
Progress Note, Physician Chief Complaint: patient seen and examined admitted for infected wound on foot - Current Medication List Current Medications: Active Medications Vancomycin HCl 1,000 mg/ (Dextrose) 250 mls @ 166.667 mls/hr IVPB ONCE ONE Stop: 01/12/18 17:29 Vancomycin HCl 1,000 mg/ (Sodium Chloride) 250 mls @ 200 mls/hr IVPB Q24H MISSAEL; Protocol Piperacillin Sod/Tazobactam (Sod 2.25 gm/ Sodium Chloride) 50 mls @ 100 mls/hr IVPB Q6H-IV MISSAEL; Protocol - Objective Vital Signs: Vital Signs Temperature 97.8 F 01/12/18 10:00 Pulse Rate 65 01/12/18 10:00 Respiratory Rate 22 01/12/18 10:00 Blood Pressure 135/67 01/12/18 10:00 O2 Sat by Pulse Oximetry (%) 96 01/11/18 23:19 Constitutional: Yes: Calm Neck: Yes: Trachea Midline Cardiovascular: Yes: Regular Rate and Rhythm, S1, S2 Respiratory: Yes: CTA Bilaterally Gastrointestinal: Yes: Normal Bowel Sounds, Soft Extremities: Yes: Other Wound/Incision: Yes: Other (right foot plantar surface open punched out wound draining serosanginous discharge) Neurological: Yes: Alert, Oriented Labs: CBC, BMP 01/12/18 06:00 01/12/18 06:00 Problem List - Problems (1) Diabetic infection of right foot Assessment/Plan: ID - iv abx vascular consult CRP/ESR MRI Code(s): E11.69 - TYPE 2 DIABETES MELLITUS WITH OTHER SPECIFIED COMPLICATION; L08.9 - LOCAL INFECTION OF THE SKIN AND SUBCUTANEOUS TISSUE, UNSP (2) Diabetes mellitus type 2 with peripheral artery disease Assessment/Plan: [id number] sliding scale Code(s): E11.51 - TYPE 2 DIABETES W DIABETIC PERIPHERAL ANGIOPATH W/O GANGRENE (3) Acute kidney injury superimposed on CKD Assessment/Plan: renal evaluation Code(s): N17.9 - ACUTE KIDNEY FAILURE, UNSPECIFIED; N18.9 - CHRONIC KIDNEY DISEASE, UNSPECIFIED (4) Coronary artery disease Assessment/Plan: metoprolol Norvasc lang hold plavix if surgical debridement is needed check lipid profile- statin Code(s): I25.10 - ATHSCL HEART DISEASE OF [place] CORONARY ARTERY W/O ANG PCTRS Qualifiers: Coronary Disease-Associated Artery/Lesion type: [place] artery [place] vs. transplanted heart: [place] heart Associated angina: without angina Qualified Code(s): I25.10 - Atherosclerotic heart disease of [place] coronary artery without angina pectoris
--- NOTE | 2018-01-12 14:25 | PN ---
Progress Note (short form) - Note Progress Note: ID Known to me from both the hospital and office Chronic osteomyelitis of the right foot Sent from wound care for reevaluation was to be on surpressive oral antibiotics (will need to check records Bactrim or Doyxcyline) Selected Entries 01/12/18 14:15 Temperature 98 F Pulse Rate 75 Respiratory 18 Rate Right foot ankle diffusely swollen plantar ulcer ? sinus tract Microbiology 05/14/17 13:00 Foot - Left Plantar Gram Stain - Final 05/14/17 13:00 Foot - Left Plantar Wound Culture - Final Mr S Aureus 05/14/17 09:08 Blood - Peripheral Venous Blood Culture - Final Mr S Aureus 05/14/17 09:08 Blood - Peripheral Venous Blood Culture - Final Mr S Aureus 05/12/17 09:35 Blood - Peripheral Venous Blood Culture - Final Presumptive Mrsa (Pbp2a Pos) 01/11/18 12:00 Foot - Right Plantar Wound Culture - Preliminary Non Lactose Fermenting Gnb Non Lactose Fermenting Gnb#2 Lactose Fermenting Neg Bacilli Group D Strep Or Entero Coccus Alpha Hemolytic Streptococcus Diphtheroid/Corynebacterium Staphylococcus Coagulase Neg Laboratory Tests 01/11/18 01/11/18 01/12/18 14:48 15:22 06:00 WBC 6.6 RBC 5.76 H Hct 42.1 Plt Count 142 D ESR 16 BUN Creatinine C-Reactive Protein 11.7 H Random Vancomycin 01/12/18 01/12/18 06:00 10:40 WBC RBC Hct Plt Count ESR BUN 36 H Creatinine 2.4 H C-Reactive Protein Random Vancomycin 11.24 Assessment Chronic osteomyelitis with exacerbation Polymicrobial superficial wound History of MRSA Plan Sanju Sanedrs to see Consider amputution Emmanuel BANEGAS Problem List - Problems (1) Chronic osteomyelitis Code(s): M86.60 - OTHER CHRONIC OSTEOMYELITIS, UNSPECIFIED SITE (2) MRSA infection Code(s): A49.02 - METHICILLIN RESIS STAPH INFECTION, UNSP SITE (3) Diabetic foot Code(s): E11.8 - TYPE 2 DIABETES MELLITUS WITH UNSPECIFIED COMPLICATIONS
--- NOTE | 2018-01-12 14:55 | CONS ---
INFECTIOUS DISEASE CONSULTATION DATE OF CONSULTATION: DATE OF DICTATION: 01/12/2018 This is a 67-year-old, known diabetic male with multiple other comorbidities including chronic kidney disease, COPD, Parkinson's, who was admitted from the wound care center for re-evaluation of a draining plantar wound. The patient is well known to Dr. Sanders who has followed him for years. Additionally, I have followed him both in the hospital and in the office for what is known to be a chronic osteomyelitis of the right foot. The patient has had prior blood cultures with bacteremia for MRSA in the past and has been on suppressive therapy for what is thought to be an MRSA chronic osteomyelitis. I do not currently have his office records, but I believe he is supposed to be on chronic suppressive therapy, perhaps with a tetracycline drug. The patient has no fever or chills and has only a limited ability to express more than being sent here by the wound care center after a "hole opened up" on the bottom of his foot. PAST MEDICAL HISTORY: As noted above. MEDICATION: Tamsulosin, metoprolol, Namenda, amlodipine, Plavix, Lasix, Lyrica, atorvastatin, iron, insulin. ALLERGIES: None known. SOCIAL HISTORY: Drinks alcohol, beer and cr, on weekends. Denies smoking. 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 FAMILY HISTORY: Reviewed, noncontributory. REVIEW OF SYSTEMS: Respiratory: No cough, shortness of breath. Cardiac: No chest pain, palpitations, syncope. Gastrointestinal: No nausea, vomiting, diarrhea. Genitourinary: History of BPH. No dysuria, hematuria. PHYSICAL EXAMINATION: General: Revealed a pleasant, dguc-tmgvqpher-erycervdg male in no acute distress. Vital Signs: Temperature 98, pulse 75, blood pressure 160/78, respirations 18. Neck: Supple. Lungs: Clear to percussion and auscultation. Heart: S1, S2. Regular rhythm without audible murmur. Abdomen: Soft, nontender, without hepatosplenomegaly. Extremities: Reveal diffuse swelling of the right foot which did not appear tender. A large ulcerative lesion was noted in the mid-plantar aspect of the right foot. Minimal drainage noted on the dressing at this time. The white count is 9.2, hemoglobin 13.9, platelets of 75,000. ESR is 16. CRP is 11.7. BUN 36, creatinine 2.4. Vancomycin level 11.24. Blood culture pending. Wound culture with polymicrobial gram-positive/gram-negative josef. ASSESSMENT: Long history of chronic osteomyelitis of the right foot with possible exacerbation now. Patient describes a hole with drainage on the plantar aspect of his foot. He has diffuse swelling of the right foot suggestive of recurrent soft tissue infection which is likely related to his underlying chronic osteomyelitis. He was supposed to be on long-term oral suppressive therapy, but I do not see this on his list of medications at this time. We will empirically treat him with vancomycin and Zosyn. I discussed the case with Dr. Sanders who will see him in the a.m. and consideration of possible need for partial or complete amputation of the foot and/or lower extremity. JEANINE CALDWELL M.D. [id number]
[2018-01-12] MEDS ORDERED: PT OWN MED DRAWER 7, Y5N ONE (15:33)
--- NOTE | 2018-01-12 16:01 | CONSULT ---
Consult Consult Specialty:: Nephrology ( Michael/ mayur) Referred by:: Reason for Consultation:: Abnormal kidney functions - History of Present Illness Chief Complaint: the patient came to the wound care center with infected foot ulcer. History of Present Illness: The patient is a 67-year-old male, with a past medical history of DM, CKD, COPD , CVA, GOUT, HTN, osteomyelitis, and Parkinsons admitted for management of infected right foot ulcer. The patient is followed by Dr. Patel for the wounds on his feet. The patients foot wounds were closed last month and the wound on his right foot is now open and appears to be infected. Patient was also noted to have a low grade fever. The patient has Chronic Kidney disease, and now the renal functions are worse. He has no dysuria, no hematura. has significant nocturia. 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 Cardio/Vascular: Yes: HTN, Hyperlipdemia, Other (PAD) Pulmonary: Yes: Asthma, COPD, O2 Dependent, Sleep Apnea Hepatobiliary: Yes: Cholecystitis Renal/: Yes: Renal Inusuff Musculoskeletal: Yes: Other (chronic foot ulcers) Endocrine: Yes: Diabetes Mellitus - Past Surgical History Past Surgical History: Yes: Amputation (second toe left foot), Appendectomy, Carotid Endarterectomy (right), Cholecystectomy, Hernia Repair, Stent, Tonsillectomy - Alcohol/Substance Use Hx Alcohol Use: No Number of Drinks Daily: 2 (beer, cr on weekend) History of Substance Use: reports: None - Smoking History Smoking history: Current some day smoker Have you smoked in the past 12 months: No Aproximately how many cigarettes per day: 3 If you are a former smoker, when did you quit?: May 2014 - Social History Usual Living Arrangement: Alone ADL: Independent (uses a walker and wheelchair, in process of getting a scooter) 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 ,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 History of Recent Travel: No Home Medications - Allergies Allergies/Adverse Reactions: Allergies Allergy/AdvReac Type Severity Reaction Status Date / Time No Known Drug Allergies Allergy Verified 01/11/18 12:28 - Home Medications Home Medications: Ambulatory Orders Tamsulosin HCl [Flomax -] 0.4 mg PO DAILY 05/11/16 traZODone HCL [Desyrel -] 50 mg PO HS 05/11/16 Metoprolol Succinate [Toprol XL -] 25 mg PO DAILY tab.sr.24h 07/19/16 oxyCODONE HCL [Roxicodone -] 5 mg PO Q8H PRN #30 tablet MDD 3 07/19/16 Memantine HCl [Namenda Xr] 7 mg PO DAILY 07/22/16 Amlodipine Besylate [Norvasc -] 5 mg PO DAILY tablet 10/29/16 Clopidogrel Bisulfate [Plavix -] 75 mg PO DAILY tablet 10/29/16 Pantoprazole Sodium [Protonix] 40 mg PO DAILY 01/25/17 Furosemide [Lasix] 20 mg PO DAILY #0 mg 03/08/17 Ergocalciferol (Vitamin D2) [Vitamin D2] 50,000 unit PO WEEKLY 05/11/17 Pregabalin [Lyrica -] 150 mg PO BID 05/11/17 Docusate Sodium [Colace -] 100 mg PO TID #90 capsule 08/12/17 Atorvastatin Calcium 20 mg PO DAILY 11/08/17 Ferrous Sulfate [Feosol] 325 mg PO BID ud 11/11/17 Insulin Sliding Scale [Novolog Vial Sliding Scale -] 1 vial SQ ACHS units 11/11 Aclidinium [place] [Tudorza Pressair] 1 tab PO DAILY 01/11/18 Ergocalciferol (Vitamin D2) [Drisdol] 1 tab PO DAILY 01/11/18 Lidocaine 5% Patch [Lidoderm -] 1 patch TP DAILY 01/11/18 Pramipexole Di-HCl [Mirapex] 0.5 mg PO DAILY 01/11/18 Family Disease History - Family Disease History Family Disease History: Diabetes: Mother (htn), CA: Father (htn, prostate CA), Other: Father, Mother Review of Systems - Review of Systems Constitutional: reports: Chills, Fever Eyes: reports: No Symptoms HENT: reports: No Symptoms Neck: reports: No Symptoms Cardiovascular: denies: Chest Pain, Palpitations, Shortness of Breath Gastrointestinal: denies: Abdominal Pain Genitourinary: reports: Other (nocturia +++). denies: Burning Musculoskeletal: denies: Back Pain Neurological: reports: Numbness Physical Exam Vital Signs: Vital Signs Temperature 98 F 01/12/18 14:15 Pulse Rate 75 01/12/18 14:15 Respiratory Rate 18 01/12/18 14:15 Blood Pressure 159/78 01/12/18 14:15 O2 Sat by Pulse Oximetry (%) 97 01/12/18 09:00 Constitutional: Yes: No Distress, Anxious Eyes: Yes: Conjunctiva Clear HENT: Yes: Normocephalic Neck: Yes: Trachea Midline Cardiovascular: Yes: S1, S2 Respiratory: Yes: CTA Bilaterally, Diminished Gastrointestinal: Yes: Normal Bowel Sounds, Abdomen, Obese Renal/: No: Bladder Distention, CVA Tenderness - Left, CVA Tenderness - Right Musculoskeletal: No: Back Pain, Joint Stiffness Extremities: No: Amputation (Distal foot R) Edema: RLE: Trace Wound/Incision: Yes: Draining, Reddened Neurological: Yes: Alert, Oriented, Numbness Psychiatric: Yes: Alert, Oriented Labs: CBC, BMP 01/12/18 06:00 01/12/18 06:00 Problem List - Problems (1) Chronic osteomyelitis Code(s): M86.60 - OTHER CHRONIC OSTEOMYELITIS, UNSPECIFIED SITE (2) Diabetic infection of right foot Code(s): E11.69 - TYPE 2 DIABETES MELLITUS WITH OTHER SPECIFIED COMPLICATION; L08.9 - LOCAL INFECTION OF THE SKIN AND SUBCUTANEOUS TISSUE, UNSP (3) JESÚS (acute kidney injury) Code(s): N17.9 - ACUTE KIDNEY FAILURE, UNSPECIFIED (4) Diabetic infection of left foot Code(s): E11.69 - TYPE 2 DIABETES MELLITUS WITH OTHER SPECIFIED COMPLICATION; L08.9 - LOCAL INFECTION OF THE SKIN AND SUBCUTANEOUS TISSUE, UNSP (5) Osteomyelitis due to type 2 diabetes mellitus Code(s): E11.69 - TYPE 2 DIABETES MELLITUS WITH OTHER SPECIFIED COMPLICATION; M86.9 - OSTEOMYELITIS, UNSPECIFIED (6) Wound infection Code(s): T14.8 - OTHER INJURY OF UNSPECIFIED BODY REGION * DO NOT USE *; L08.9 - LOCAL INFECTION OF THE SKIN AND SUBCUTANEOUS TISSUE, UNSP (7) Anemia Code(s): D64.9 - ANEMIA, UNSPECIFIED Qualifiers: Anemia type: unspecified type Qualified Code(s): D64.9 - Anemia, unspecified (8) CKD (chronic kidney disease) Code(s): N18.9 - CHRONIC KIDNEY DISEASE, UNSPECIFIED Qualifiers: Chronic kidney disease stage: stage 3 (moderate) Qualified Code(s): N18.3 - Chronic kidney disease, stage 3 (moderate) (9) Coronary artery disease Code(s): I25.10 - ATHSCL HEART DISEASE OF [place] CORONARY ARTERY W/O ANG PCTRS Qualifiers: Coronary Disease-Associated Artery/Lesion type: [place] artery [place] vs. transplanted heart: [place] heart Associated angina: without angina Qualified Code(s): I25.10 - Atherosclerotic heart disease of [place] coronary artery without angina pectoris (10) Diabetes mellitus type 2 with peripheral artery disease Code(s): E11.51 - TYPE 2 DIABETES W DIABETIC PERIPHERAL ANGIOPATH W/O GANGRENE (11) Hypertension Code(s): I10 - ESSENTIAL (PRIMARY) HYPERTENSION Qualifiers: Hypertension type: essential hypertension Qualified Code(s): I10 - Essential (primary) hypertension Assessment/Plan The patient is a 67-year-old male, with a past medical history of DM, CKD, COPD , CVA, GOUT, HTN, osteomyelitis, and Parkinsons, admitted with infected foot ulcer (R). Acute Renal failure, superimposed on Chronic Kidney disease... The Acute renal dysfunction possibly related to the sepsis and altered renal hemodynamics and renal hypoperfusion. 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 Can not r/o an Obstructive component to the renal disease. ( A recent pelvic sonogram shows enlarged prostate and significant postvoid bladder residual.) SUGGEST: Basic w/u as ordered. Will get Renal and Pelvic sonogram Will monitor the renal functions with you. Will need to monitor the Vancomycin trough levels, given his advanced kidney disease. Will start on Tamsulosin Thank you.. Will follow with you. Yuli Rodriguez MD
[2018-01-12] MEDS: INSULIN SLIDING SCALE (NOVOLOG) 1 VIAL SQ SCH ×2 (16:48→21:56)
[2018-01-12] MEDS: PRAMIPEXOLE DIHYDROCHLORIDE 0.5 MG TABLET PO SCH (21:45)
[2018-01-12] MEDS: ATORVASTATIN CA 20 MG TABLET (FP) PO SCH (21:46)
[2018-01-12] MEDS: traZODone HCL 50 MG TABLET (FP) PO SCH (21:46)
[2018-01-13] MEDS ORDERED: PIPERACILLIN/TAZOBACTAM 2.25 GM VIAL IVPB ONE ×4 (00:20→21:11)
[2018-01-13] MEDS ORDERED: DEXTROSE 5%-WATER - 50 ML IVPB ONE ×3 (00:21→21:12)
[2018-01-13] MEDS: PIPERACILLIN/TAZOB 2.25 GM 2.25 GM in DEXTROSE 5%-WATER - 50 ML IVPB SCH ×6 (02:21→21:21)
[2018-01-13] MEDS: MEMANTINE HCL 10 MG TABLET (FP) PO SCH (05:55)
[2018-01-13 07:19] LABS: ALBUMIN 2.6 g/dl (3.4-5.0); ALK PHOS 121 U/L (45-117); ANION GAP 5 (8-16); BILIRUBIN,TOTAL 0.4 mg/dL (0.2-1.0); BLOOD UREA NITROGEN 25 mg/dL (7-18); CALCIUM 8.3 mg/dL (8.5-10.1); CHLORIDE 104 mmol/L (98-107); CO2 29 mmol/L (21-32); CREATININE 1.9 mg/dL (0.7-1.3); GLUCOSE,RANDOM 195 mg/dL (74-106); POTASSIUM 5.2 mmol/L (3.5-5.1); SGOT/AST 26 U/L (15-37); SGPT/ALT 25 U/L (12-78); SODIUM 138 mmol/L (136-145); TOT PROT 6.5 g/dl (6.4-8.2)
[2018-01-13] MEDS: INSULIN SLIDING SCALE (NOVOLOG) 1 VIAL SQ SCH ×4 (08:03→21:22)
[2018-01-13 08:07] LABS: BASO % 1.3 % (0-2.0); EOS % 8.4 % (0-4.5); HEMATOCRIT 40.3 % (35.4-49); HEMOGLOBIN 12.4 GM/dL (11.7-16.9); LYMPH % 17.5 % (8-40); MCH 22.5 pg (25.7-33.7); MCHC 30.8 g/dl (32.0-35.9); MEAN CELL VOLUME 72.9 fl (80-96); MEAN PLT VOLUME 9.4 fl (7.5-11.1); MONO % 12.4 % (3.8-10.2); NEUT % 60.4 % (42.8-82.8); PLATELET COUNT 127 K/MM3 (134-434); RBC 5.53 M/mm3 (4.00-5.60); RDW 19.4 % (11.9-15.9); WHITE BLOOD COUNT 6.2 K/mm3 (4.0-10.0)
[2018-01-13] MEDS ORDERED: DEXTROSE 5%-WATER - 100 ML IVPB ONE (08:08)
[2018-01-13] MEDS: TAMSULOSIN HCL 0.4 MG CAP.ER.24H (FP) PO SCH (08:26)
[2018-01-13 08:33] LABS: CHOLESTEROL 91 mg/dL (50-200); HDL CHOLESTEROL 47 mg/dL (40-60); TRIGLYCERIDES 58 mg/dL (35-160)
--- NOTE | 2018-01-13 08:56 | CONSULT ---
Consult - History of Present Illness History of Present Illness: 67 year old male, DM, PAD with chronic recurrent wounds of both feet followed in Wound Care. He had recently healed both feet and presented for follow-up with a new wound of the right foot. He complains of local pain. No fever. 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 Cardio/Vascular: Yes: HTN, Hyperlipdemia, Other (PAD) Pulmonary: Yes: Asthma, COPD, O2 Dependent, Sleep Apnea Hepatobiliary: Yes: Cholecystitis Renal/: Yes: Renal Inusuff Musculoskeletal: Yes: Other (chronic foot ulcers) Endocrine: Yes: Diabetes Mellitus - Past Surgical History Past Surgical History: Yes: Amputation (second toe left foot), Appendectomy, Carotid Endarterectomy (right), Cholecystectomy, Hernia Repair, Stent, Tonsillectomy - Alcohol/Substance Use Hx Alcohol Use: No Number of Drinks Daily: 2 (beer, cr on weekend) History of Substance Use: reports: None - Smoking History Smoking history: Current some day smoker Have you smoked in the past 12 months: No Aproximately how many cigarettes per day: 3 If you are a former smoker, when did you quit?: May 2014 - Social History Usual Living Arrangement: Alone ADL: Independent (uses a walker and wheelchair, in process of getting a scooter) 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 ,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 History of Recent Travel: No Home Medications - Allergies Allergies/Adverse Reactions: Allergies Allergy/AdvReac Type Severity Reaction Status Date / Time No Known Drug Allergies Allergy Verified 01/11/18 12:28 - Home Medications Home Medications: Ambulatory Orders Tamsulosin HCl [Flomax -] 0.4 mg PO DAILY 05/11/16 traZODone HCL [Desyrel -] 50 mg PO HS 05/11/16 Metoprolol Succinate [Toprol XL -] 25 mg PO DAILY tab.sr.24h 07/19/16 oxyCODONE HCL [Roxicodone -] 5 mg PO Q8H PRN #30 tablet MDD 3 07/19/16 Memantine HCl [Namenda Xr] 7 mg PO DAILY 07/22/16 Amlodipine Besylate [Norvasc -] 5 mg PO DAILY tablet 10/29/16 Clopidogrel Bisulfate [Plavix -] 75 mg PO DAILY tablet 10/29/16 Pantoprazole Sodium [Protonix] 40 mg PO DAILY 01/25/17 Furosemide [Lasix] 20 mg PO DAILY #0 mg 03/08/17 Ergocalciferol (Vitamin D2) [Vitamin D2] 50,000 unit PO WEEKLY 05/11/17 Pregabalin [Lyrica -] 150 mg PO BID 05/11/17 Docusate Sodium [Colace -] 100 mg PO TID #90 capsule 08/12/17 Atorvastatin Calcium 20 mg PO DAILY 11/08/17 Ferrous Sulfate [Feosol] 325 mg PO BID ud 11/11/17 Insulin Sliding Scale [Novolog Vial Sliding Scale -] 1 vial SQ ACHS units 11/11 Aclidinium [place] [Tudorza Pressair] 1 tab PO DAILY 01/11/18 Ergocalciferol (Vitamin D2) [Drisdol] 1 tab PO DAILY 01/11/18 Lidocaine 5% Patch [Lidoderm -] 1 patch TP DAILY 01/11/18 Pramipexole Di-HCl [Mirapex] 0.5 mg PO DAILY 01/11/18 Family Disease History - Family Disease History Family Disease History: Diabetes: Mother (htn), CA: Father (htn, prostate CA), Other: Father, Mother Physical Exam Vital Signs: Vital Signs Temperature 98 F 01/13/18 05:45 Pulse Rate 68 01/13/18 05:45 Respiratory Rate 18 01/13/18 05:45 Blood Pressure 129/76 01/13/18 05:45 O2 Sat by Pulse Oximetry (%) 97 01/12/18 21:00 Extremities: Yes: Other (Right plantar ulcer 2.5 x 2.5 cm with exposed subQ. No erythema or drainage noted. No fluctuance. Old wound of 1st metatarsal healed. Left foot has no open wounds, swelling or fluctuance.) Labs: CBC, BMP 01/13/18 05:30 01/13/18 05:30 Problem List - Problems (1) Diabetic infection of right foot Assessment/Plan: New wound away from healed metatarsal wound. This could still be related with tracking from chronic osteomyelitis. Await imaging. Arterial testing ordered in case surgical debridement or amputation indicated. Code(s): E11.69 - TYPE 2 DIABETES MELLITUS WITH OTHER SPECIFIED COMPLICATION; L08.9 - LOCAL INFECTION OF THE SKIN AND SUBCUTANEOUS TISSUE, UNSP
--- NOTE | 2018-01-13 09:46 | PN ---
Progress Note, Physician - Current Medication List Current Medications: Active Medications Amlodipine Besylate (Norvasc -) 5 mg PO DAILY [facility] Atorvastatin Calcium (Lipitor -) 20 mg PO HS [facility] Last Admin: 01/12/18 21:46 Dose: 20 mg Piperacillin Sod/Tazobactam (Sod 2.25 gm/ Dextrose) 50 mls @ 100 mls/hr IVPB Q6H-IV [facility]; Protocol Last Admin: 01/13/18 02:21 Dose: 100 mls/hr Insulin Aspart (Novolog Vial Sliding Scale -) 1 vial SQ ACHS [facility]; Protocol Last Admin: 01/13/18 08:03 Dose: Not Given Memantine (Namenda -) 10 mg PO DAILY@0600 [facility] Last Admin: 01/13/18 05:55 Dose: 10 mg Metoprolol Succinate (Toprol Xl -) 25 mg PO DAILY [facility] Pantoprazole Sodium (Protonix -) 40 mg PO DAILY [facility] Pramipexole Dihydrochloride (Mirapex -) 0.5 mg PO 2000 [facility] Last Admin: 01/12/18 21:45 Dose: 0.5 mg Tamsulosin HCl (Flomax -) 0.4 mg PO DAILY@0830 [facility] Last Admin: 01/13/18 08:26 Dose: Not Given Tiotropium [place] (Spiriva -) 1 puff IH DAILY [facility] Trazodone HCl (Desyrel -) 50 mg PO [facility] Last Admin: 01/12/18 21:46 Dose: 50 mg - Objective Vital Signs: Vital Signs Temperature 98 F 01/13/18 05:45 Pulse Rate 68 01/13/18 05:45 Respiratory Rate 18 01/13/18 05:45 Blood Pressure 129/76 01/13/18 05:45 O2 Sat by Pulse Oximetry (%) 97 01/12/18 21:00 Cardiovascular: Yes: S1, S2 Respiratory: Yes: Regular, CTA Bilaterally Gastrointestinal: Yes: Normal Bowel Sounds, Soft Wound/Incision: Yes: Dressing Removed, Excoriated. No: Draining Labs: CBC, BMP 01/13/18 05:30 01/13/18 05:30 Assessment/Plan - Problems (1) Diabetic infection of right foot Assessment/Plan: ID - iv abx vascular consult CRP/ESR MRI Code(s): E11.69 - TYPE 2 DIABETES MELLITUS WITH OTHER SPECIFIED COMPLICATION; L08.9 - LOCAL INFECTION OF THE SKIN AND SUBCUTANEOUS TISSUE, UNSP (2) Diabetes mellitus type 2 with peripheral artery disease Assessment/Plan: [id number] sliding scale Code(s): E11.51 - TYPE 2 DIABETES W DIABETIC PERIPHERAL ANGIOPATH W/O GANGRENE (3) Acute kidney injury superimposed on CKD Assessment/Plan: renal evaluation Code(s): N17.9 - ACUTE KIDNEY FAILURE, UNSPECIFIED; N18.9 - CHRONIC KIDNEY DISEASE, UNSPECIFIED (4) Coronary artery disease Assessment/Plan: metoprolol Norvasc lang hold plavix if surgical debridement is needed check lipid profile- statin Code(s): I25.10 - ATHSCL HEART DISEASE OF [place] CORONARY ARTERY W/O ANG PCTRS Qualifiers: Coronary Disease-Associated Artery/Lesion type: [place] artery [place] vs. transplanted heart: [place] heart Associated angina: without angina Qualified Code(s): I25.10 - Atherosclerotic heart disease of [place] coronary artery without angina pectoris
[2018-01-13] MEDS ORDERED: ACETAMINOPHEN 325 MG TABLET (FP) PO PRN (09:47)
[2018-01-13] MEDS: amLODIPine BESYLATE 5 MG TABLET (FP) PO SCH (09:49)
[2018-01-13] MEDS: PANTOPRAZOLE 40 MG TABLET (FP) PO SCH (09:49)
[2018-01-13] MEDS: ALBUTEROL SO4 2.5/IPRATROPIUM 0.5 INH SOL 3 ML VIAL.NEB. NEB SCH ×3 (11:02→20:58)
[2018-01-13 11:07] LABS: ERYTHROCYTE SEDIMENTATION RATE 14 mm/hr (0-20)
[2018-01-13 11:13] LABS: PLATELET ESTIMATE DECREASED
[2018-01-13] MEDS ORDERED: INSULIN (NOVOLOG) ASPART 100 UNITS/ML 10ML VIAL ONE (12:53)
[2018-01-13] MEDS: TIOTROPIUM BROMIDE 18 MCG CAPSULES IH SCH (12:54)
--- NOTE | 2018-01-13 13:09 | PN ---
Progress Note, Physician History of Present Illness: The patient seen in his room. Comfortable. The patient is a 67-year-old male, with a past medical history of DM, CKD, COPD , CVA, GOUT, HTN, osteomyelitis, and Parkinsons admitted for management of infected right foot ulcer. The patient is followed by Dr. Sanders for the wounds on his feet. The patients foot wounds were closed last month and the wound on his right foot is now open and appears to be infected. Patient was also noted to have a low grade fever. The patient has Chronic Kidney disease. He has no dysuria, no hematura. has significant nocturia. - Current Medication List Current Medications: Active Medications Acetaminophen (Tylenol -) 650 mg PO Q6H PRN PRN Reason: PAIN LEVEL 4 - 6 Albuterol/Ipratropium (Duoneb -) 1 amp NEB RQID [facility] Last Admin: 01/13/18 11:02 Dose: Not Given Amlodipine Besylate (Norvasc -) 5 mg PO DAILY [facility] Last Admin: 01/13/18 09:49 Dose: 5 mg Atorvastatin Calcium (Lipitor -) 20 mg PO HS [facility] Last Admin: 01/12/18 21:46 Dose: 20 mg Piperacillin Sod/Tazobactam (Sod 2.25 gm/ Dextrose) 50 mls @ 100 mls/hr IVPB Q6H-IV [facility]; Protocol Last Admin: 01/13/18 02:21 Dose: 100 mls/hr Insulin Aspart (Novolog Vial Sliding Scale -) 1 vial SQ ACHS [facility]; Protocol Last Admin: 01/13/18 12:54 Dose: 4 units Memantine (Namenda -) 10 mg PO DAILY@0600 [facility] Last Admin: 01/13/18 05:55 Dose: 10 mg Metoprolol Succinate (Toprol Xl -) 25 mg PO DAILY [facility] Last Admin: 01/13/18 09:49 Dose: 25 mg Pantoprazole Sodium (Protonix -) 40 mg PO DAILY [facility] Last Admin: 01/13/18 09:49 Dose: 40 mg Pramipexole Dihydrochloride (Mirapex -) 0.5 mg PO 2000 [facility] Last Admin: 01/12/18 21:45 Dose: 0.5 mg Tamsulosin HCl (Flomax -) 0.4 mg PO DAILY@0830 [facility] Last Admin: 01/13/18 08:26 Dose: Not Given Tiotropium [place] (Spiriva -) 1 puff IH DAILY [facility] Last Admin: 01/13/18 12:54 Dose: 1 puff Trazodone HCl (Desyrel -) 50 mg PO HS [facility] Last Admin: 01/12/18 21:46 Dose: 50 mg - Objective Vital Signs: Vital Signs Temperature 98.4 F 01/13/18 09:00 Pulse Rate 69 01/13/18 09:00 Respiratory Rate 22 01/13/18 09:00 Blood Pressure 160/91 01/13/18 09:00 O2 Sat by Pulse Oximetry (%) 92 L 01/13/18 09:00 Constitutional: Yes: No Distress, Calm HENT: Yes: Normocephalic Cardiovascular: Yes: Regular Rate and Rhythm, S1, S2 Respiratory: Yes: CTA Bilaterally, Rhonchi Gastrointestinal: Yes: Normal Bowel Sounds, Soft Genitourinary: No: Bladder Distention, CVA Tenderness - Left, CVA Tenderness - Right Labs: CBC, BMP 01/13/18 05:30 01/13/18 05:30 Problem List - Problems (1) Chronic osteomyelitis Code(s): M86.60 - OTHER CHRONIC OSTEOMYELITIS, UNSPECIFIED SITE (2) Diabetic infection of right foot Code(s): E11.69 - TYPE 2 DIABETES MELLITUS WITH OTHER SPECIFIED COMPLICATION; L08.9 - LOCAL INFECTION OF THE SKIN AND SUBCUTANEOUS TISSUE, UNSP (3) JESÚS (acute kidney injury) Code(s): N17.9 - ACUTE KIDNEY FAILURE, UNSPECIFIED (4) Diabetic infection of left foot Code(s): E11.69 - TYPE 2 DIABETES MELLITUS WITH OTHER SPECIFIED COMPLICATION; L08.9 - LOCAL INFECTION OF THE SKIN AND SUBCUTANEOUS TISSUE, UNSP (5) Osteomyelitis due to type 2 diabetes mellitus Code(s): E11.69 - TYPE 2 DIABETES MELLITUS WITH OTHER SPECIFIED COMPLICATION; M86.9 - OSTEOMYELITIS, UNSPECIFIED (6) Wound infection Code(s): T14.8 - OTHER INJURY OF UNSPECIFIED BODY REGION * DO NOT USE *; L08.9 - LOCAL INFECTION OF THE SKIN AND SUBCUTANEOUS TISSUE, UNSP (7) Anemia Code(s): D64.9 - ANEMIA, UNSPECIFIED Qualifiers: Anemia type: unspecified type Qualified Code(s): D64.9 - Anemia, unspecified (8) CKD (chronic kidney disease) Code(s): N18.9 - CHRONIC KIDNEY DISEASE, UNSPECIFIED Qualifiers: Chronic kidney disease stage: stage 3 (moderate) Qualified Code(s): N18.3 - Chronic kidney disease, stage 3 (moderate) (9) Coronary artery disease Code(s): I25.10 - ATHSCL HEART DISEASE OF [place] CORONARY ARTERY W/O ANG PCTRS Qualifiers: Coronary Disease-Associated Artery/Lesion type: [place] artery [place] vs. transplanted heart: [place] heart Associated angina: without angina Qualified Code(s): I25.10 - Atherosclerotic heart disease of [place] coronary artery without angina pectoris (10) Diabetes mellitus type 2 with peripheral artery disease Code(s): E11.51 - TYPE 2 DIABETES W DIABETIC PERIPHERAL ANGIOPATH W/O [place] (11) Hypertension Code(s): I10 - ESSENTIAL (PRIMARY) HYPERTENSION Qualifiers: Hypertension type: essential hypertension Qualified Code(s): I10 - Essential (primary) hypertension Assessment/Plan The patient is a 67-year-old male, with a past medical history of DM, CKD, COPD , CVA, GOUT, HTN, osteomyelitis, and Parkinsons, admitted with infected foot ulcer (R). Acute Renal failure, superimposed on Chronic Kidney disease... The Acute has improved to some extent. Incidentally noted is a atendency for hyperkalemia. Of note is the developing eosinophilia. AIN??? Will monitor. 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 Can not r/o an Obstructive component to the renal disease. SUGGEST: Basic w/u as ordered. Will get Renal and Pelvic sonogram Will monitor the renal functions with you. Will need to monitor the Vancomycin trough levels, given his advanced kidney disease. Thank you.. Will follow with you. Yuli Rodriguez MD
[2018-01-13] MEDS ORDERED: VANCOMYCIN 500 MG in DEXTROSE 5%-WATER - 100 ML IVPB ONE (14:20)
--- NOTE | 2018-01-13 14:23 | PN ---
Progress Note (short form) - Note Progress Note: feels well returned from MRI Vital Signs Period Temp Pulse Resp BP Sys/Cintron Pulse Ox Last 24 Hr 97.6 F-98.4 F 66-71 18-22 129-160/76-91 92-97 cor-rrr lungs clear abd soft,nt ext plantar ulcer with minimal drainage, no necrosis +swelling CBC, BMP 01/13/18 05:30 01/13/18 05:30 Laboratory Tests 01/13/18 01/13/18 05:30 05:30 ESR 14 C-Reactive Protein 5.1 H Microbiology 01/11/18 13:14 Blood - Peripheral Venous Blood Culture - Preliminary NO GROWTH OBTAINED AFTER 24 HOURS, INCUBATION TO CONTINUE FOR 4 DAYS. a/p awaiting imaging studies continue vanco/zosyn adjsuted for CKD will f/u
[2018-01-13] MEDS ORDERED: oxyCODONE HCL 5 MG TABLET PO ONE (17:45)
[2018-01-13] MEDS: guaiFENesin/D-M SUGAR-FREE/ACLHOL-FREE 118 ML BOTTLE PO PRN (18:39)
[2018-01-13] MEDS ORDERED: PT OWN MED DRAWER 7, Y5N ONE (18:44)
[2018-01-13] MEDS: PRAMIPEXOLE DIHYDROCHLORIDE 0.5 MG TABLET PO SCH (21:22)
[2018-01-13] MEDS: ATORVASTATIN CA 20 MG TABLET (FP) PO SCH (21:22)
[2018-01-13] MEDS: traZODone HCL 50 MG TABLET (FP) PO SCH (21:22)
[2018-01-14] MEDS ORDERED: PIPERACILLIN/TAZOBACTAM 2.25 GM VIAL IVPB ONE ×4 (03:22→20:33)
[2018-01-14] MEDS ORDERED: DEXTROSE 5%-WATER - 50 ML IVPB ONE ×4 (03:22→20:33)
[2018-01-14] MEDS: PIPERACILLIN/TAZOB 2.25 GM 2.25 GM in DEXTROSE 5%-WATER - 50 ML IVPB SCH ×4 (03:27→20:54)
[2018-01-14] MEDS: MEMANTINE HCL 10 MG TABLET (FP) PO SCH (05:59)
[2018-01-14] MEDS: INSULIN SLIDING SCALE (NOVOLOG) 1 VIAL SQ SCH ×4 (05:59→21:39)
[2018-01-14 07:15] LABS: ALBUMIN 2.8 g/dl (3.4-5.0); ANION GAP 5 (8-16); BLOOD UREA NITROGEN 17 mg/dL (7-18); CALCIUM 8.4 mg/dL (8.5-10.1); CHLORIDE 101 mmol/L (98-107); CO2 32 mmol/L (21-32); GLUCOSE,RANDOM 164 mg/dL (74-106); POTASSIUM 4.4 mmol/L (3.5-5.1); SODIUM 138 mmol/L (136-145)
[2018-01-14 07:18] LABS: ALK PHOS 93 U/L (45-117); BILIRUBIN,TOTAL 0.6 mg/dL (0.2-1.0); CREATININE 1.6 mg/dL (0.7-1.3); SGOT/AST 26 U/L (15-37); SGPT/ALT 26 U/L (12-78); TOT PROT 6.9 g/dl (6.4-8.2)
[2018-01-14] MEDS: ALBUTEROL SO4 2.5/IPRATROPIUM 0.5 INH SOL 3 ML VIAL.NEB. NEB SCH ×4 (08:29→21:09)
[2018-01-14] MEDS: PANTOPRAZOLE 40 MG TABLET (FP) PO SCH (09:01)
[2018-01-14] MEDS: TIOTROPIUM BROMIDE 18 MCG CAPSULES IH SCH (09:01)
[2018-01-14] MEDS: amLODIPine BESYLATE 5 MG TABLET (FP) PO SCH (09:01)
[2018-01-14] MEDS: TAMSULOSIN HCL 0.4 MG CAP.ER.24H (FP) PO SCH (09:01)
[2018-01-14] MEDS: guaiFENesin/D-M SUGAR-FREE/ACLHOL-FREE 118 ML BOTTLE PO PRN (09:45)
[2018-01-14] MEDS ORDERED: PT OWN MED DRAWER 7, Y5N ONE ×4 (11:49→20:33)
--- NOTE | 2018-01-14 12:29 | PN ---
Progress Note (short form) - Note Progress Note: Arterial Doppler shows adequate flow to both feet with RALPH 0.8 on the right with mild flow deficit. Duplex shows an occluded stent of the right SFA with popliteal reconstitution. MRI suggesting osteomyelitis of right 4th and 5th metatarsal. Imp: Despite femoral occlusion, flow to right foot appears adequate at this time. Repeat angioplasty or bypass will be needed if healing becomes delayed. New osteo finding is different location from most recent wound in right 1st metatarsal and will need long-term antibiotics. Problem List - Problems (1) Diabetic infection of right foot Code(s): E11.69 - TYPE 2 DIABETES MELLITUS WITH OTHER SPECIFIED COMPLICATION; L08.9 - LOCAL INFECTION OF THE SKIN AND SUBCUTANEOUS TISSUE, UNSP
[2018-01-14 14:45] LABS: HEMOGLOBIN 12.9 GM/dL (11.7-16.9); MEAN CELL VOLUME 73.4 fl (80-96); MEAN PLT VOLUME 8.9 fl (7.5-11.1); PLATELET COUNT 135 K/MM3 (134-434); RBC 5.85 M/mm3 (4.00-5.60); RDW 19.4 % (11.9-15.9); WHITE BLOOD COUNT 5.6 K/mm3 (4.0-10.0)
[2018-01-14] MEDS: VANCOMYCIN 1 GM PREMIX - 1 GM/200 ML BAG IVPB SCH (15:23)
[2018-01-14 17:47] LABS: ANISOCYTOSIS 1+; MACROCYTOSIS 1+; OVALOCYTE 1+
[2018-01-14 17:48] LABS: PLATELET ESTIMATE ADEQUATE
[2018-01-14] MEDS ORDERED: INSULIN (NOVOLOG) ASPART 100 UNITS/ML 10ML VIAL ONE (18:04)
--- NOTE | 2018-01-14 18:21 | PN ---
Progress Note, Physician Chief Complaint: EVENTS AND NOTES REVIEWED NAD - Current Medication List Current Medications: Active Medications Acetaminophen (Tylenol -) 650 mg PO Q6H PRN PRN Reason: PAIN LEVEL 4 - 6 Last Admin: 01/13/18 17:54 Dose: 650 mg Albuterol/Ipratropium (Duoneb -) 1 amp NEB RQID [facility] Last Admin: 01/14/18 12:37 Dose: 1 amp Amlodipine Besylate (Norvasc -) 5 mg PO DAILY [facility] Last Admin: 01/14/18 09:01 Dose: 5 mg Atorvastatin Calcium (Lipitor -) 20 mg PO HS [facility] Last Admin: 01/13/18 21:22 Dose: 20 mg Guaifenesin (Diabetic Tussin Dm -) 10 ml PO Q6H PRN PRN Reason: COUGH Last Admin: 01/14/18 09:45 Dose: 10 ml Piperacillin Sod/Tazobactam (Sod 2.25 gm/ Dextrose) 50 mls @ 100 mls/hr IVPB Q6H-IV [facility]; Protocol Last Admin: 01/14/18 15:00 Dose: 100 mls/hr Vancomycin HCl (Vancomycin 1 Gm Premix -) 1 gm in 200 mls @ 200 mls/hr IVPB DAILY@1500 [facility]; Protocol Last Admin: 01/14/18 15:23 Dose: 200 mls/hr Insulin Aspart (Novolog Vial Sliding Scale -) 1 vial SQ ACHS [facility]; Protocol Last Admin: 01/14/18 18:12 Dose: 2 units Memantine (Namenda -) 10 mg PO DAILY@0600 [facility] Last Admin: 01/14/18 05:59 Dose: 10 mg Metoprolol Succinate (Toprol Xl -) 25 mg PO DAILY [facility] Last Admin: 01/14/18 09:01 Dose: 25 mg Pantoprazole Sodium (Protonix -) 40 mg PO DAILY [facility] Last Admin: 01/14/18 09:01 Dose: 40 mg Pramipexole Dihydrochloride (Mirapex -) 0.5 mg PO 2000 [facility] Last Admin: 01/13/18 21:22 Dose: 0.5 mg Tamsulosin HCl (Flomax -) 0.4 mg PO DAILY@0830 [facility] Last Admin: 01/14/18 09:01 Dose: Not Given Tiotropium [place] (Spiriva -) 1 puff IH DAILY [facility] Last Admin: 01/14/18 09:01 Dose: 1 puff Trazodone HCl (Desyrel -) 50 mg PO HS [facility] Last Admin: 01/13/18 21:22 Dose: 50 mg - Objective Vital Signs: Vital Signs Temperature 97.6 F 01/14/18 17:31 Pulse Rate 74 01/14/18 17:32 Respiratory Rate 18 01/14/18 17:32 Blood Pressure 173/117 01/14/18 17:32 O2 Sat by Pulse Oximetry (%) 96 01/14/18 08:25 Constitutional: Yes: Mild Distress Eyes: Yes: WNL HENT: Yes: WNL Neck: Yes: WNL Cardiovascular: Yes: WNL Respiratory: Yes: WNL Gastrointestinal: Yes: WNL Genitourinary: Yes: Other Extremities: Yes: Other Edema: No Peripheral Pulses WNL: Yes Integumentary: Yes: Other Wound/Incision: Yes: Dressing Dry and Intact, Excoriated Neurological: Yes: Pre-Existing Deficit ...Motor Strength: LLE, RLE Labs: CBC, BMP 01/14/18 05:30 01/14/18 05:30 Problem List - Problems (1) Chronic osteomyelitis Code(s): M86.60 - OTHER CHRONIC OSTEOMYELITIS, UNSPECIFIED SITE (2) Diabetic infection of right foot Code(s): E11.69 - TYPE 2 DIABETES MELLITUS WITH OTHER SPECIFIED COMPLICATION; L08.9 - LOCAL INFECTION OF THE SKIN AND SUBCUTANEOUS TISSUE, UNSP (3) JESÚS (acute kidney injury) Code(s): N17.9 - ACUTE KIDNEY FAILURE, UNSPECIFIED (4) Acute kidney injury superimposed on CKD Code(s): N17.9 - ACUTE KIDNEY FAILURE, UNSPECIFIED; N18.9 - CHRONIC KIDNEY DISEASE, UNSPECIFIED (5) Altered mental status Code(s): R41.82 - ALTERED MENTAL STATUS, UNSPECIFIED Qualifiers: Altered mental status type: unspecified Qualified Code(s): R41.82 - Altered mental status, unspecified (6) Arterial occlusion, lower extremity Code(s): I74.3 - EMBOLISM AND THROMBOSIS OF ARTERIES OF THE LOWER EXTREMITIES (7) Bacteremia due to Gram-positive bacteria Code(s): A49.9 - BACTERIAL INFECTION, UNSPECIFIED (8) Diabetic foot infection Code(s): E11.69 - TYPE 2 DIABETES MELLITUS WITH OTHER SPECIFIED COMPLICATION; L08.9 - LOCAL INFECTION OF THE SKIN AND SUBCUTANEOUS TISSUE, UNSP Assessment/Plan VASC SX WORKUP RENAL NEPHROLOGY WORKUP IV ABX , ID F/U APPRECIATED PAD VASC SX WORKUP IN PROGRESS
[2018-01-14] MEDS: traZODone HCL 50 MG TABLET (FP) PO SCH ×2 (20:54→21:08)
[2018-01-14] MEDS: ATORVASTATIN CA 20 MG TABLET (FP) PO SCH ×2 (20:54→21:08)
[2018-01-14] MEDS: PRAMIPEXOLE DIHYDROCHLORIDE 0.5 MG TABLET PO SCH (20:55)
--- NOTE | 2018-01-14 22:58 | PN ---
Progress Note (short form) - Note Progress Note: nephrology coverage Problems DM, CKD, COPD, CVA, GOUT, HTN, osteomyelitis, and Parkinsons infected foot ulcer (R). JESÚS/CKD Tendency to Hyperkalemia eosinophilia r/o AIN Current Medications Acetaminophen (Tylenol -) 650 mg PO Q6H PRN PRN Reason: PAIN LEVEL 4 - 6 Last Admin: 01/13/18 17:54 Dose: 650 mg Albuterol/Ipratropium (Duoneb -) 1 amp NEB RQID [facility] Last Admin: 01/14/18 21:09 Dose: Not Given Amlodipine Besylate (Norvasc -) 5 mg PO DAILY [facility] Last Admin: 01/14/18 09:01 Dose: 5 mg Atorvastatin Calcium (Lipitor -) 20 mg PO HS [facility] Last Admin: 01/14/18 21:08 Dose: Not Given Guaifenesin (Diabetic Tussin Dm -) 10 ml PO Q6H PRN PRN Reason: COUGH Last Admin: 01/14/18 09:45 Dose: 10 ml Piperacillin Sod/Tazobactam (Sod 2.25 gm/ Dextrose) 50 mls @ 100 mls/hr IVPB Q6H-IV [facility]; Protocol Last Admin: 01/14/18 20:54 Dose: 100 mls/hr Vancomycin HCl (Vancomycin 1 Gm Premix -) 1 gm in 200 mls @ 200 mls/hr IVPB DAILY@1500 [facility]; Protocol Last Admin: 01/14/18 15:23 Dose: 200 mls/hr Insulin Aspart (Novolog Vial Sliding Scale -) 1 vial SQ ACHS [facility]; Protocol Last Admin: 01/14/18 21:39 Dose: Not Given Memantine (Namenda -) 10 mg PO DAILY@0600 [facility] Last Admin: 01/14/18 05:59 Dose: 10 mg Metoprolol Succinate (Toprol Xl -) 25 mg PO DAILY [facility] Last Admin: 01/14/18 09:01 Dose: 25 mg Pantoprazole Sodium (Protonix -) 40 mg PO DAILY [facility] Last Admin: 01/14/18 09:01 Dose: 40 mg Pramipexole Dihydrochloride (Mirapex -) 0.5 mg PO 2000 [facility] Last Admin: 01/14/18 20:55 Dose: 0.5 mg Tamsulosin HCl (Flomax -) 0.4 mg PO DAILY@0830 [facility] Last Admin: 01/14/18 09:01 Dose: Not Given Tiotropium [place] (Spiriva -) 1 puff IH DAILY [facility] Last Admin: 01/14/18 09:01 Dose: 1 puff Trazodone HCl (Desyrel -) 50 mg PO HS [facility] Last Admin: 01/14/18 21:08 Dose: Not Given Last Vital Signs Temp Pulse Resp BP Pulse Ox 97.6 F 74 18 173/117 96 01/14/18 17:31 01/14/18 17:32 01/14/18 17:32 01/14/18 17:32 01/14/18 08:25 lungs clear heart reg abd soft nontender ext no edema CBC, BMP 01/14/18 05:30 01/14/18 05:30 Plan- f/u labs
[2018-01-15] MEDS ORDERED: PIPERACILLIN/TAZOBACTAM 2.25 GM VIAL IVPB ONE ×4 (02:19→20:14)
[2018-01-15] MEDS ORDERED: DEXTROSE 5%-WATER - 50 ML IVPB ONE ×4 (02:19→20:14)
[2018-01-15] MEDS: PIPERACILLIN/TAZOB 2.25 GM 2.25 GM in DEXTROSE 5%-WATER - 50 ML IVPB SCH ×4 (02:30→20:29)
[2018-01-15] MEDS ORDERED: INSULIN (NOVOLOG) ASPART 100 UNITS/ML 10ML VIAL ONE (06:04)
[2018-01-15] MEDS: INSULIN SLIDING SCALE (NOVOLOG) 1 VIAL SQ SCH ×4 (06:05→21:39)
[2018-01-15] MEDS: MEMANTINE HCL 10 MG TABLET (FP) PO SCH (06:06)
[2018-01-15] MEDS: ALBUTEROL SO4 2.5/IPRATROPIUM 0.5 INH SOL 3 ML VIAL.NEB. NEB SCH ×4 (08:05→20:37)
[2018-01-15] MEDS: TAMSULOSIN HCL 0.4 MG CAP.ER.24H (FP) PO SCH (08:28)
--- NOTE | 2018-01-15 09:38 | PN ---
Progress Note, Physician Chief Complaint: AWAKE ALERT NO COMPLAINTS TODAY - Current Medication List Current Medications: Active Medications Acetaminophen (Tylenol -) 650 mg PO Q6H PRN PRN Reason: PAIN LEVEL 4 - 6 Last Admin: 01/13/18 17:54 Dose: 650 mg Albuterol/Ipratropium (Duoneb -) 1 amp NEB RQID [facility] Last Admin: 01/15/18 08:05 Dose: 1 amp Amlodipine Besylate (Norvasc -) 5 mg PO DAILY [facility] Last Admin: 01/14/18 09:01 Dose: 5 mg Atorvastatin Calcium (Lipitor -) 20 mg PO HS [facility] Last Admin: 01/14/18 21:08 Dose: Not Given Guaifenesin (Diabetic Tussin Dm -) 10 ml PO Q6H PRN PRN Reason: COUGH Last Admin: 01/14/18 09:45 Dose: 10 ml Piperacillin Sod/Tazobactam (Sod 2.25 gm/ Dextrose) 50 mls @ 100 mls/hr IVPB Q6H-IV [facility]; Protocol Last Admin: 01/15/18 08:29 Dose: 100 mls/hr Vancomycin HCl (Vancomycin 1 Gm Premix -) 1 gm in 200 mls @ 200 mls/hr IVPB DAILY@1500 [facility]; Protocol Last Admin: 01/14/18 15:23 Dose: 200 mls/hr Insulin Aspart (Novolog Vial Sliding Scale -) 1 vial SQ ACHS [facility]; Protocol Last Admin: 01/15/18 06:05 Dose: Not Given Memantine (Namenda -) 10 mg PO DAILY@0600 [facility] Last Admin: 01/15/18 06:06 Dose: 10 mg Metoprolol Succinate (Toprol Xl -) 25 mg PO DAILY [facility] Last Admin: 01/14/18 09:01 Dose: 25 mg Pantoprazole Sodium (Protonix -) 40 mg PO DAILY [facility] Last Admin: 01/14/18 09:01 Dose: 40 mg Pramipexole Dihydrochloride (Mirapex -) 0.5 mg PO 2000 [facility] Last Admin: 01/14/18 20:55 Dose: 0.5 mg Tamsulosin HCl (Flomax -) 0.4 mg PO DAILY@0830 [facility] Last Admin: 01/15/18 08:28 Dose: 0.4 mg Tiotropium [place] (Spiriva -) 1 puff IH DAILY [facility] Last Admin: 01/14/18 09:01 Dose: 1 puff Trazodone HCl (Desyrel -) 50 mg PO HS [facility] Last Admin: 01/14/18 21:08 Dose: Not Given - Objective Vital Signs: Vital Signs Temperature 99.2 F 01/15/18 06:00 Pulse Rate 67 01/15/18 06:00 Respiratory Rate 20 01/15/18 06:00 Blood Pressure 152/84 01/15/18 06:00 O2 Sat by Pulse Oximetry (%) 96 01/14/18 21:00 Constitutional: Yes: No Distress Eyes: Yes: WNL HENT: Yes: WNL Neck: Yes: WNL Cardiovascular: Yes: WNL Respiratory: Yes: WNL Gastrointestinal: Yes: WNL Genitourinary: Yes: Other Musculoskeletal: Yes: Muscle Weakness Extremities: Yes: Amputation, Deformity Edema: Yes Peripheral Pulses WNL: Yes Integumentary: Yes: Pressure Ulcer (RIGHT FOOT) Wound/Incision: Yes: Dressing Dry and Intact, Unapproximated Neurological: Yes: Pre-Existing Deficit, Unsteady Gait ...Motor Strength: RLE Psychiatric: Yes: WNL Labs: CBC, BMP 01/14/18 05:30 01/14/18 05:30 Problem List - Problems (1) Chronic osteomyelitis Code(s): M86.60 - OTHER CHRONIC OSTEOMYELITIS, UNSPECIFIED SITE (2) Diabetic infection of right foot Code(s): E11.69 - TYPE 2 DIABETES MELLITUS WITH OTHER SPECIFIED COMPLICATION; L08.9 - LOCAL INFECTION OF THE SKIN AND SUBCUTANEOUS TISSUE, UNSP (3) JESÚS (acute kidney injury) Code(s): N17.9 - ACUTE KIDNEY FAILURE, UNSPECIFIED (4) Acute kidney injury superimposed on CKD Code(s): N17.9 - ACUTE KIDNEY FAILURE, UNSPECIFIED; N18.9 - CHRONIC KIDNEY DISEASE, UNSPECIFIED (5) Altered mental status Code(s): R41.82 - ALTERED MENTAL STATUS, UNSPECIFIED Qualifiers: Altered mental status type: unspecified Qualified Code(s): R41.82 - Altered mental status, unspecified (6) Arterial occlusion, lower extremity Code(s): I74.3 - EMBOLISM AND THROMBOSIS OF ARTERIES OF THE LOWER EXTREMITIES (7) Bacteremia due to Gram-positive bacteria Code(s): A49.9 - BACTERIAL INFECTION, UNSPECIFIED (8) Diabetic foot infection Code(s): E11.69 - TYPE 2 DIABETES MELLITUS WITH OTHER SPECIFIED COMPLICATION; L08.9 - LOCAL INFECTION OF THE SKIN AND SUBCUTANEOUS TISSUE, UNSP Assessment/Plan VASC SX WORKUP MAY NEED ANGIOPLASTY RIGHT LOWER EXTREMITY RENAL NEPHROLOGY WORKUP IV ABX , ID F/U APPRECIATED PAD VASC SX WORKUP IN PROGRESS WOUND CARE
[2018-01-15] MEDS: amLODIPine BESYLATE 5 MG TABLET (FP) PO SCH (10:20)
[2018-01-15] MEDS: PANTOPRAZOLE 40 MG TABLET (FP) PO SCH (10:21)
[2018-01-15] MEDS: TIOTROPIUM BROMIDE 18 MCG CAPSULES IH SCH (10:21)
[2018-01-15] MEDS ORDERED: PT OWN MED DRAWER 7, Y5N ONE ×2 (10:24→20:14)
[2018-01-15] MEDS: guaiFENesin/D-M SUGAR-FREE/ACLHOL-FREE 118 ML BOTTLE PO PRN ×2 (10:25→21:47)
[2018-01-15] MEDS: VANCOMYCIN 1 GM PREMIX - 1 GM/200 ML BAG IVPB SCH (15:54)
[2018-01-15] MEDS: PRAMIPEXOLE DIHYDROCHLORIDE 0.5 MG TABLET PO SCH (20:30)
[2018-01-15] MEDS: traZODone HCL 50 MG TABLET (FP) PO SCH (21:42)
[2018-01-15] MEDS: ATORVASTATIN CA 20 MG TABLET (FP) PO SCH (21:42)
--- NOTE | 2018-01-15 22:24 | PN ---
Progress Note (short form) - Note Progress Note: nephrology coverage Problems DM, CKD, COPD, CVA, GOUT, HTN, osteomyelitis, and Parkinsons infected foot ulcer (R). JESÚS/CKD Tendency to Hyperkalemia eosinophilia r/o AIN Current Medications Acetaminophen (Tylenol -) 650 mg PO Q6H PRN PRN Reason: PAIN LEVEL 4 - 6 Last Admin: 01/13/18 17:54 Dose: 650 mg Albuterol/Ipratropium (Duoneb -) 1 amp NEB RQID [facility] Last Admin: 01/15/18 20:37 Dose: 1 amp Amlodipine Besylate (Norvasc -) 5 mg PO DAILY [facility] Last Admin: 01/15/18 10:20 Dose: 5 mg Atorvastatin Calcium (Lipitor -) 20 mg PO HS [facility] Last Admin: 01/15/18 21:42 Dose: 20 mg Guaifenesin (Diabetic Tussin Dm -) 10 ml PO Q6H PRN PRN Reason: COUGH Last Admin: 01/15/18 21:47 Dose: 10 ml Piperacillin Sod/Tazobactam (Sod 2.25 gm/ Dextrose) 50 mls @ 100 mls/hr IVPB Q6H-IV [facility]; Protocol Last Admin: 01/15/18 20:29 Dose: 100 mls/hr Vancomycin HCl (Vancomycin 1 Gm Premix -) 1 gm in 200 mls @ 200 mls/hr IVPB DAILY@1500 [facility]; Protocol Last Admin: 01/15/18 15:54 Dose: 200 mls/hr Insulin Aspart (Novolog Vial Sliding Scale -) 1 vial SQ ACHS [facility]; Protocol Last Admin: 01/15/18 21:39 Dose: Not Given Memantine (Namenda -) 10 mg PO DAILY@0600 [facility] Last Admin: 01/15/18 06:06 Dose: 10 mg Metoprolol Succinate (Toprol Xl -) 25 mg PO DAILY [facility] Last Admin: 01/15/18 10:20 Dose: 25 mg Pantoprazole Sodium (Protonix -) 40 mg PO DAILY [facility] Last Admin: 01/15/18 10:21 Dose: 40 mg Pramipexole Dihydrochloride (Mirapex -) 0.5 mg PO 2000 [facility] Last Admin: 01/15/18 20:30 Dose: 0.5 mg Tamsulosin HCl (Flomax -) 0.4 mg PO DAILY@0830 [facility] Last Admin: 01/15/18 08:28 Dose: 0.4 mg Tiotropium [place] (Spiriva -) 1 puff IH DAILY [facility] Last Admin: 01/15/18 10:21 Dose: 1 puff Trazodone HCl (Desyrel -) 50 mg PO HS [facility] Last Admin: 01/15/18 21:42 Dose: 50 mg Last Vital Signs Temp Pulse Resp BP Pulse Ox 98.6 F 80 18 136/82 97 01/15/18 17:24 01/15/18 17:24 01/15/18 17:24 01/15/18 17:24 01/15/18 09:00 lungs clear heart reg abd soft CBC, BMP 01/14/18 05:30 01/14/18 05:30 CKD stable Plan- continue present regimen f/u labs periodically
[2018-01-16] MEDS ORDERED: DEXTROSE 5%-WATER - 50 ML IVPB ONE ×5 (02:33→23:58)
[2018-01-16] MEDS ORDERED: PIPERACILLIN/TAZOBACTAM 2.25 GM VIAL IVPB ONE ×5 (02:33→23:58)
[2018-01-16] MEDS: PIPERACILLIN/TAZOB 2.25 GM 2.25 GM in DEXTROSE 5%-WATER - 50 ML IVPB SCH ×4 (02:40→20:50)
[2018-01-16] MEDS: INSULIN SLIDING SCALE (NOVOLOG) 1 VIAL SQ SCH ×4 (06:05→21:28)
[2018-01-16] MEDS: MEMANTINE HCL 10 MG TABLET (FP) PO SCH (06:05)
[2018-01-16] MEDS: guaiFENesin/D-M SUGAR-FREE/ACLHOL-FREE 118 ML BOTTLE PO PRN (06:26)
[2018-01-16] MEDS: ALBUTEROL SO4 2.5/IPRATROPIUM 0.5 INH SOL 3 ML VIAL.NEB. NEB SCH ×4 (07:20→20:15)
--- NOTE | 2018-01-16 10:06 | PN ---
Progress Note (short form) - Note Progress Note: ID Dr Joy note seen regarding new osteomyelitis ON Vanco and Zosyn Selected Entries 01/16/18 07:08 Temperature 97.9 F Pulse Rate 70 Respiratory 20 Rate Blood Pressure 126/87 Microbiology 01/12/18 22:00 Foot - Right Plantar Gram Stain - Final 01/12/18 22:00 Foot - Right Plantar Wound Culture - Preliminary Enterococcus Faecalis Yeast Like Organism Staphylococcus Coagulase Neg Non Lactose Fermenting Gnb 01/12/18 18:30 Blood - Peripheral Venous Blood Culture - Preliminary NO GROWTH OBTAINED AFTER 72 HOURS, INCUBATION TO CONTINUE FOR 2 DAYS. 01/11/18 13:14 Blood - Peripheral Venous Blood Culture - Preliminary NO GROWTH OBTAINED AFTER 72 HOURS, INCUBATION TO CONTINUE FOR 2 DAYS. Laboratory Tests 01/13/18 01/13/18 01/14/18 05:30 05:30 05:30 WBC Hgb Plt Count ESR 14 BUN 17 D Creatinine 1.6 H C-Reactive Protein 5.1 H Random Vancomycin 01/14/18 01/14/18 05:30 06:00 WBC 5.6 Hgb 12.9 Plt Count 135 ESR BUN Creatinine C-Reactive Protein Random Vancomycin 13.01 Assessment Osteomyelitis Diabetic PVD Plan PICC line and retreat Vanco and Angel Benitez MD Problem List - Problems (1) Chronic osteomyelitis Code(s): M86.60 - OTHER CHRONIC OSTEOMYELITIS, UNSPECIFIED SITE (2) MRSA infection Code(s): A49.02 - METHICILLIN RESIS STAPH INFECTION, UNSP SITE (3) Diabetic foot Code(s): E11.8 - TYPE 2 DIABETES MELLITUS WITH UNSPECIFIED COMPLICATIONS
[2018-01-16] MEDS ORDERED: PT OWN MED DRAWER 7, Y5N ONE ×2 (10:31→20:24)
[2018-01-16] MEDS: PANTOPRAZOLE 40 MG TABLET (FP) PO SCH (10:41)
[2018-01-16] MEDS: amLODIPine BESYLATE 5 MG TABLET (FP) PO SCH (10:41)
[2018-01-16] MEDS: TAMSULOSIN HCL 0.4 MG CAP.ER.24H (FP) PO SCH (10:41)
[2018-01-16] MEDS: TIOTROPIUM BROMIDE 18 MCG CAPSULES IH SCH (10:42)
--- NOTE | 2018-01-16 11:06 | PN ---
Progress Note, Physician Chief Complaint: patient in bed MRI noted - Current Medication List Current Medications: Active Medications Acetaminophen (Tylenol -) 650 mg PO Q6H PRN PRN Reason: PAIN LEVEL 4 - 6 Last Admin: 01/13/18 17:54 Dose: 650 mg Albuterol/Ipratropium (Duoneb -) 1 amp NEB RQID [facility] Last Admin: 01/16/18 07:20 Dose: 1 amp Amlodipine Besylate (Norvasc -) 5 mg PO DAILY [facility] Last Admin: 01/16/18 10:41 Dose: 5 mg Atorvastatin Calcium (Lipitor -) 20 mg PO HS [facility] Last Admin: 01/15/18 21:42 Dose: 20 mg Guaifenesin (Diabetic Tussin Dm -) 10 ml PO Q6H PRN PRN Reason: COUGH Last Admin: 01/16/18 06:26 Dose: 10 ml Piperacillin Sod/Tazobactam (Sod 2.25 gm/ Dextrose) 50 mls @ 100 mls/hr IVPB Q6H-IV [facility]; Protocol Last Admin: 01/16/18 10:41 Dose: 100 mls/hr Vancomycin HCl (Vancomycin 1 Gm Premix -) 1 gm in 200 mls @ 200 mls/hr IVPB DAILY@1500 [facility]; Protocol Last Admin: 01/15/18 15:54 Dose: 200 mls/hr Insulin Aspart (Novolog Vial Sliding Scale -) 1 vial SQ ACHS [facility]; Protocol Last Admin: 01/16/18 06:05 Dose: Not Given Memantine (Namenda -) 10 mg PO DAILY@0600 [facility] Last Admin: 01/16/18 06:05 Dose: 10 mg Metoprolol Succinate (Toprol Xl -) 25 mg PO DAILY [facility] Last Admin: 01/16/18 10:41 Dose: 25 mg Pantoprazole Sodium (Protonix -) 40 mg PO DAILY [facility] Last Admin: 01/16/18 10:41 Dose: 40 mg Pramipexole Dihydrochloride (Mirapex -) 0.5 mg PO 2000 [facility] Last Admin: 01/15/18 20:30 Dose: 0.5 mg Tamsulosin HCl (Flomax -) 0.4 mg PO DAILY@0830 [facility] Last Admin: 01/16/18 10:41 Dose: 0.4 mg Tiotropium [place] (Spiriva -) 1 puff IH DAILY [facility] Last Admin: 01/16/18 10:42 Dose: 1 puff Trazodone HCl (Desyrel -) 50 mg PO HS [facility] Last Admin: 01/15/18 21:42 Dose: 50 mg - Objective Vital Signs: Vital Signs Temperature 97.9 F 01/16/18 07:08 Pulse Rate 70 01/16/18 07:08 Respiratory Rate 20 01/16/18 07:08 Blood Pressure 126/87 01/16/18 07:08 O2 Sat by Pulse Oximetry (%) 97 01/15/18 21:00 Constitutional: Yes: Calm Cardiovascular: Yes: Regular Rate and Rhythm, S1, S2 Respiratory: Yes: CTA Bilaterally Gastrointestinal: Yes: Normal Bowel Sounds, Soft Wound/Incision: Yes: Other (wound opened and yellowish discharge on plantar surface) Neurological: Yes: Alert, Oriented Labs: CBC, BMP 01/14/18 05:30 01/14/18 05:30 Problem List - Problems (1) Diabetic infection of right foot Assessment/Plan: ID - iv abx- will need picc line for 6 weeks course - zosyn and vancomycin vascular consult- noted possible repeat angio CRP/ESR MRI noted for oste Code(s): E11.69 - TYPE 2 DIABETES MELLITUS WITH OTHER SPECIFIED COMPLICATION; L08.9 - LOCAL INFECTION OF THE SKIN AND SUBCUTANEOUS TISSUE, UNSP (2) Diabetes mellitus type 2 with peripheral artery disease Assessment/Plan: hgba1c 7.8 sliding scale lang start long acting insulin Code(s): E11.51 - TYPE 2 DIABETES W DIABETIC PERIPHERAL ANGIOPATH W/O GANGRENE (3) Acute kidney injury superimposed on CKD Assessment/Plan: renal on board creatinine trending down from 1.9 to 1.6 Code(s): N17.9 - ACUTE KIDNEY FAILURE, UNSPECIFIED; N18.9 - CHRONIC KIDNEY DISEASE, UNSPECIFIED (4) Coronary artery disease Assessment/Plan: metoprolol Norvasc lang hold plavix if surgical debridement is needed check lipid profile- statin Code(s): I25.10 - ATHSCL HEART DISEASE OF [place] CORONARY ARTERY W/O ANG PCTRS Qualifiers: Coronary Disease-Associated Artery/Lesion type: [place] artery [place] vs. transplanted heart: [place] heart Associated angina: without angina Qualified Code(s): I25.10 - Atherosclerotic heart disease of [place] coronary artery without angina pectoris Assessment/Plan picc line will be placed once DC is confirmed possible angioplasty by vascular then snf placement for terminal carman iv abx
--- NOTE | 2018-01-16 12:35 | PN ---
Progress Note, Physician History of Present Illness: The patient seen in his room. Comfortable. The patient is a 67-year-old male, with a past medical history of DM, CKD, COPD , CVA, GOUT, HTN, osteomyelitis, and Parkinsons admitted for management of infected right foot ulcer. The patient is followed by Dr. Sanders for the wounds on his feet. Dr. Sanders's notes noted. The patient has Chronic Kidney disease. He has no dysuria, no hematura. has significant nocturia. - Current Medication List Current Medications: Active Medications Acetaminophen (Tylenol -) 650 mg PO Q6H PRN PRN Reason: PAIN LEVEL 4 - 6 Last Admin: 01/13/18 17:54 Dose: 650 mg Albuterol/Ipratropium (Duoneb -) 1 amp NEB RQID [facility] Last Admin: 01/16/18 11:23 Dose: 1 amp Amlodipine Besylate (Norvasc -) 5 mg PO DAILY [facility] Last Admin: 01/16/18 10:41 Dose: 5 mg Atorvastatin Calcium (Lipitor -) 20 mg PO HS [facility] Last Admin: 01/15/18 21:42 Dose: 20 mg Guaifenesin (Diabetic Tussin Dm -) 10 ml PO Q6H PRN PRN Reason: COUGH Last Admin: 01/16/18 06:26 Dose: 10 ml Piperacillin Sod/Tazobactam (Sod 2.25 gm/ Dextrose) 50 mls @ 100 mls/hr IVPB Q6H-IV [facility]; Protocol Last Admin: 01/16/18 10:41 Dose: 100 mls/hr Vancomycin HCl (Vancomycin 1 Gm Premix -) 1 gm in 200 mls @ 200 mls/hr IVPB DAILY@1500 [facility]; Protocol Last Admin: 01/15/18 15:54 Dose: 200 mls/hr Insulin Aspart (Novolog Vial Sliding Scale -) 1 vial SQ ACHS [facility]; Protocol Last Admin: 01/16/18 12:20 Dose: 2 units Memantine (Namenda -) 10 mg PO DAILY@0600 [facility] Last Admin: 01/16/18 06:05 Dose: 10 mg Metoprolol Succinate (Toprol Xl -) 25 mg PO DAILY [facility] Last Admin: 01/16/18 10:41 Dose: 25 mg Pantoprazole Sodium (Protonix -) 40 mg PO DAILY [facility] Last Admin: 01/16/18 10:41 Dose: 40 mg Pramipexole Dihydrochloride (Mirapex -) 0.5 mg PO 1999 [facility] Last Admin: 01/15/18 20:30 Dose: 0.5 mg Tamsulosin HCl (Flomax -) 0.4 mg PO DAILY@0830 [facility] Last Admin: 01/16/18 10:41 Dose: 0.4 mg Tiotropium [place] (Spiriva -) 1 puff IH DAILY [facility] Last Admin: 01/16/18 10:42 Dose: 1 puff Trazodone HCl (Desyrel -) 50 mg PO HS [facility] Last Admin: 01/15/18 21:42 Dose: 50 mg - Objective Vital Signs: Vital Signs Temperature 97.9 F 01/16/18 07:08 Pulse Rate 70 01/16/18 07:08 Respiratory Rate 20 01/16/18 07:08 Blood Pressure 126/87 01/16/18 07:08 O2 Sat by Pulse Oximetry (%) 97 01/15/18 21:00 Constitutional: Yes: No Distress, Calm Eyes: Yes: Conjunctiva Clear HENT: Yes: Normocephalic Neck: Yes: Trachea Midline Cardiovascular: Yes: S1, S2 Respiratory: Yes: CTA Bilaterally, Diminished Gastrointestinal: Yes: Normal Bowel Sounds, Abdomen, Obese Extremities: Yes: Other (Ulcer on the sole) Edema: Yes Peripheral Pulses WNL: No Labs: CBC, BMP 01/14/18 05:30 01/14/18 05:30 Problem List - Problems (1) Chronic osteomyelitis Code(s): M86.60 - OTHER CHRONIC OSTEOMYELITIS, UNSPECIFIED SITE (2) Diabetic infection of right foot Code(s): E11.69 - TYPE 2 DIABETES MELLITUS WITH OTHER SPECIFIED COMPLICATION; L08.9 - LOCAL INFECTION OF THE SKIN AND SUBCUTANEOUS TISSUE, UNSP (3) JESÚS (acute kidney injury) Code(s): N17.9 - ACUTE KIDNEY FAILURE, UNSPECIFIED (4) Diabetic infection of left foot Code(s): E11.69 - TYPE 2 DIABETES MELLITUS WITH OTHER SPECIFIED COMPLICATION; L08.9 - LOCAL INFECTION OF THE SKIN AND SUBCUTANEOUS TISSUE, UNSP (5) Osteomyelitis due to type 2 diabetes mellitus Code(s): E11.69 - TYPE 2 DIABETES MELLITUS WITH OTHER SPECIFIED COMPLICATION; M86.9 - OSTEOMYELITIS, UNSPECIFIED (6) Wound infection Code(s): T14.8 - OTHER INJURY OF UNSPECIFIED BODY REGION * DO NOT USE *; L08.9 - LOCAL INFECTION OF THE SKIN AND SUBCUTANEOUS TISSUE, UNSP (7) Anemia Code(s): D64.9 - ANEMIA, UNSPECIFIED Qualifiers: Anemia type: unspecified type Qualified Code(s): D64.9 - Anemia, unspecified (8) CKD (chronic kidney disease) Code(s): N18.9 - CHRONIC KIDNEY DISEASE, UNSPECIFIED Qualifiers: Chronic kidney disease stage: stage 3 (moderate) Qualified Code(s): N18.3 - Chronic kidney disease, stage 3 (moderate) (9) Coronary artery disease Code(s): I25.10 - ATHSCL HEART DISEASE OF [place] CORONARY ARTERY W/O ANG PCTRS Qualifiers: Coronary Disease-Associated Artery/Lesion type: [place] artery [place] vs. transplanted heart: [place] heart Associated angina: without angina Qualified Code(s): I25.10 - Atherosclerotic heart disease of [place] coronary artery without angina pectoris (10) Diabetes mellitus type 2 with peripheral artery disease Code(s): E11.51 - TYPE 2 DIABETES W DIABETIC PERIPHERAL ANGIOPATH W/O GANGRENE (11) Hypertension Code(s): I10 - ESSENTIAL (PRIMARY) HYPERTENSION Qualifiers: Hypertension type: essential hypertension Qualified Code(s): I10 - Essential (primary) hypertension Assessment/Plan The patient is a 67-year-old male, with a past medical history of DM, CKD, COPD , CVA, GOUT, HTN, osteomyelitis, and Parkinsons, admitted with infected foot ulcer (R). Acute Renal failure, superimposed on Chronic Kidney disease... The Acute has improved to some extent. Incidentally noted is a a tendency for hyperkalemia. Of note is the developing eosinophilia. AIN??? Significant post void urine No lab data from today. 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 SUGGEST: Basic w/u as ordered. Will monitor the renal functions with you. Thank you. Yuli Rodriguez MD
[2018-01-16] MEDS: VANCOMYCIN 1 GM PREMIX - 1 GM/200 ML BAG IVPB SCH (15:30)
[2018-01-16] MEDS: CLOPIDOGREL BISULFATE 75 MG TABLET (FP) PO SCH (15:31)
--- NOTE | 2018-01-16 16:38 | PN ---
Progress Note (short form) - Note Progress Note: No complaints Right foot wound under medial plantar foot with small amount serous drainage. No pus. Due to renal disease and risk of IV contrast I recommend that we observe the wound for several weeks for signs of healing. If no improvement on IV antibiotics and good wound care we can proceed with angiogram for the right femoral occlusion. [facility] will [facility] patient [facility]. Problem List - Problems (1) Diabetic infection of right foot Code(s): E11.69 - TYPE 2 DIABETES MELLITUS WITH OTHER SPECIFIED COMPLICATION; L08.9 - LOCAL INFECTION OF THE SKIN AND SUBCUTANEOUS TISSUE, UNSP
[2018-01-16] MEDS: PRAMIPEXOLE DIHYDROCHLORIDE 0.5 MG TABLET PO SCH (20:50)
[2018-01-16] MEDS: GENTAMICIN SO4 0.1% TOPICAL OINTMENT 15 GM/TUBE TUBE TP SCH (21:26)
[2018-01-16] MEDS: ATORVASTATIN CA 20 MG TABLET (FP) PO SCH (21:26)
[2018-01-16] MEDS: traZODone HCL 50 MG TABLET (FP) PO SCH (21:26)
[2018-01-17] MEDS: PIPERACILLIN/TAZOB 2.25 GM 2.25 GM in DEXTROSE 5%-WATER - 50 ML IVPB SCH ×3 (02:11→14:35)
[2018-01-17] MEDS: MEMANTINE HCL 10 MG TABLET (FP) PO SCH (05:56)
[2018-01-17] MEDS: INSULIN SLIDING SCALE (NOVOLOG) 1 VIAL SQ SCH ×4 (06:02→21:14)
[2018-01-17 07:26] LABS: ALBUMIN 2.9 g/dl (3.4-5.0); ANION GAP 5 (8-16); BLOOD UREA NITROGEN 15 mg/dL (7-18); CALCIUM 8.7 mg/dL (8.5-10.1); CHLORIDE 100 mmol/L (98-107); CO2 32 mmol/L (21-32); CREATININE 1.4 mg/dL (0.7-1.3); GLUCOSE,RANDOM 166 mg/dL (74-106); POTASSIUM 4.3 mmol/L (3.5-5.1); SGOT/AST 17 U/L (15-37); SGPT/ALT 24 U/L (12-78); SODIUM 137 mmol/L (136-145)
[2018-01-17 07:28] LABS: ALK PHOS 98 U/L (45-117); BILIRUBIN,TOTAL 0.6 mg/dL (0.2-1.0); TOT PROT 6.8 g/dl (6.4-8.2)
[2018-01-17] MEDS ORDERED: PT OWN MED DRAWER 7, Y5N ONE ×2 (08:13→19:26)
[2018-01-17] MEDS: ALBUTEROL SO4 2.5/IPRATROPIUM 0.5 INH SOL 3 ML VIAL.NEB. NEB SCH ×4 (08:30→21:02)
--- NOTE | 2018-01-17 09:06 | PN ---
Progress Note, Physician Chief Complaint: Right foot diabetic wound History of Present Illness: NAD, self ambulatory Refuses SNF Wants to go home - Current Medication List Current Medications: Active Medications Acetaminophen (Tylenol -) 650 mg PO Q6H PRN PRN Reason: PAIN LEVEL 4 - 6 Last Admin: 01/13/18 17:54 Dose: 650 mg Albuterol/Ipratropium (Duoneb -) 1 amp NEB RQID [facility] Last Admin: 01/16/18 20:15 Dose: 1 amp Amlodipine Besylate (Norvasc -) 5 mg PO DAILY [facility] Last Admin: 01/16/18 10:41 Dose: 5 mg Atorvastatin Calcium (Lipitor -) 20 mg PO HS [facility] Last Admin: 01/16/18 21:26 Dose: 20 mg Clopidogrel Bisulfate (Plavix -) 75 mg PO DAILY [facility] Last Admin: 01/16/18 15:31 Dose: 75 mg Gentamicin Sulfate (Garamycin 0.1% Ointment -) 1 applic TP BID [facility] Last Admin: 01/16/18 21:26 Dose: 1 applic Guaifenesin (Diabetic Tussin Dm -) 10 ml PO Q6H PRN PRN Reason: COUGH Last Admin: 01/16/18 06:26 Dose: 10 ml Piperacillin Sod/Tazobactam (Sod 2.25 gm/ Dextrose) 50 mls @ 100 mls/hr IVPB Q6H-IV [facility]; Protocol Last Admin: 01/17/18 02:11 Dose: 100 mls/hr Vancomycin HCl (Vancomycin 1 Gm Premix -) 1 gm in 200 mls @ 200 mls/hr IVPB DAILY@1500 [facility]; Protocol Last Admin: 01/16/18 15:30 Dose: 200 mls/hr Insulin Aspart (Novolog Vial Sliding Scale -) 1 vial SQ ACHS [facility]; Protocol Last Admin: 01/17/18 06:02 Dose: Not Given Memantine (Namenda -) 10 mg PO DAILY@0600 [facility] Last Admin: 01/17/18 05:56 Dose: 10 mg Metoprolol Succinate (Toprol Xl -) 25 mg PO DAILY [facility] Last Admin: 01/16/18 10:41 Dose: 25 mg Pantoprazole Sodium (Protonix -) 40 mg PO DAILY [facility] Last Admin: 01/16/18 10:41 Dose: 40 mg Pramipexole Dihydrochloride (Mirapex -) 0.5 mg PO 1999 [facility] Last Admin: 01/16/18 20:50 Dose: 0.5 mg Tamsulosin HCl (Flomax -) 0.4 mg PO DAILY@0830 [facility] Last Admin: 01/16/18 10:41 Dose: 0.4 mg Tiotropium [place] (Spiriva -) 1 puff IH DAILY [facility] Last Admin: 01/16/18 10:42 Dose: 1 puff Trazodone HCl (Desyrel -) 50 mg PO [facility] Last Admin: 01/16/18 21:26 Dose: 50 mg - Objective Vital Signs: Vital Signs Temperature 98 F 01/17/18 06:12 Pulse Rate 72 01/17/18 06:12 Respiratory Rate 20 01/17/18 06:12 Blood Pressure 154/76 01/17/18 06:12 O2 Sat by Pulse Oximetry (%) 95 01/16/18 21:00 Constitutional: Yes: Well Nourished, No Distress, Calm Cardiovascular: Yes: Regular Rate and Rhythm Respiratory: Yes: Regular Gastrointestinal: Yes: Normal Bowel Sounds, Soft Neurological: Yes: Alert, Oriented Psychiatric: Yes: Alert, Oriented Labs: CBC, BMP 01/14/18 05:30 01/17/18 06:15 Problem List - Problems (1) Chronic osteomyelitis Assessment/Plan: -Seen by ID and Vascular -No surgical intervention recommended at this time -IV abx -MRI reviewed Code(s): M86.60 - OTHER CHRONIC OSTEOMYELITIS, UNSPECIFIED SITE (2) Diabetic infection of right foot Assessment/Plan: -IV Zosyn and Vancomycin for 4 weeks via PICC line Code(s): E11.69 - TYPE 2 DIABETES MELLITUS WITH OTHER SPECIFIED COMPLICATION; L08.9 - LOCAL INFECTION OF THE SKIN AND SUBCUTANEOUS TISSUE, UNSP (3) MRSA infection Code(s): A49.02 - METHICILLIN RESIS STAPH INFECTION, UNSP SITE (4) Acute kidney injury superimposed on CKD Assessment/Plan: -Nephrology on board -At his baseline -Monitor trend Code(s): N17.9 - ACUTE KIDNEY FAILURE, UNSPECIFIED; N18.9 - CHRONIC KIDNEY DISEASE, UNSPECIFIED (5) Diabetes mellitus Assessment/Plan: -BGM AC HS -diabetic diet -please do not mix IV abx with D5W, mix it with normal saline only -Novolog -RD consult Code(s): E11.9 - TYPE 2 DIABETES MELLITUS WITHOUT COMPLICATIONS Qualifiers: Diabetes mellitus type: type 2 Diabetes mellitus custodial insulin use: unspecified terminal carman insulin use status Diabetes mellitus complication status : with skin complications Diabetes mellitus complication detail: with dermatitis Qualified Code(s): E11.620 - Type 2 diabetes mellitus with diabetic dermatitis Assessment/Plan See probleml ist DVT prophylaxis Approval for abx for home pending
[2018-01-17] MEDS ORDERED: DEXTROSE 5%-WATER - 50 ML IVPB ONE ×2 (09:19→14:30)
[2018-01-17] MEDS ORDERED: PIPERACILLIN/TAZOBACTAM 2.25 GM VIAL IVPB ONE ×2 (09:19→14:30)
[2018-01-17] MEDS: TAMSULOSIN HCL 0.4 MG CAP.ER.24H (FP) PO SCH (09:27)
[2018-01-17] MEDS: amLODIPine BESYLATE 5 MG TABLET (FP) PO SCH (09:28)
[2018-01-17] MEDS: CLOPIDOGREL BISULFATE 75 MG TABLET (FP) PO SCH (09:28)
[2018-01-17] MEDS: TIOTROPIUM BROMIDE 18 MCG CAPSULES IH SCH (09:28)
[2018-01-17] MEDS: PANTOPRAZOLE 40 MG TABLET (FP) PO SCH (09:28)
[2018-01-17] MEDS: GENTAMICIN SO4 0.1% TOPICAL OINTMENT 15 GM/TUBE TUBE TP SCH ×2 (09:29→21:14)
--- NOTE | 2018-01-17 11:16 | PN ---
Progress Note, Physician Chief Complaint: ID Case discused with Dr Castro and Jay Sanders. Patient has a chronic osteomyelitis of the foot which in my opinion is incurable He is admitted mow with new plantar ulcer whcih could be a manifestation of the chronic osteo. In the past I have had him on tetracycline for surpression thogh I am not sure what he takes or whether he takes this. Currently on vnco and Zosyn. - Current Medication List Current Medications: Active Medications Acetaminophen (Tylenol -) 650 mg PO Q6H PRN PRN Reason: PAIN LEVEL 4 - 6 Last Admin: 01/13/18 17:54 Dose: 650 mg Albuterol/Ipratropium (Duoneb -) 1 amp NEB RQID [facility] Last Admin: 01/16/18 20:15 Dose: 1 amp Amlodipine Besylate (Norvasc -) 5 mg PO DAILY [facility] Last Admin: 01/17/18 09:28 Dose: 5 mg Atorvastatin [place] (Lipitor -) 20 mg PO HS [facility] Last Admin: 01/16/18 21:26 Dose: 20 mg Clopidogrel Bisulfate (Plavix -) 75 mg PO DAILY [facility] Last Admin: 01/17/18 09:28 Dose: 75 mg Gentamicin Sulfate (Garamycin 0.1% Ointment -) 1 applic TP BID [facility] Last Admin: 01/17/18 09:29 Dose: 1 applic Guaifenesin (Diabetic Tussin Dm -) 10 ml PO Q6H PRN PRN Reason: COUGH Last Admin: 01/16/18 06:26 Dose: 10 ml Piperacillin Sod/Tazobactam (Sod 2.25 gm/ Dextrose) 50 mls @ 100 mls/hr IVPB Q6H-IV [facility]; Protocol Last Admin: 01/17/18 09:28 Dose: 100 mls/hr Vancomycin HCl (Vancomycin 1 Gm Premix -) 1 gm in 200 mls @ 200 mls/hr IVPB DAILY@1500 [facility]; Protocol Last Admin: 01/16/18 15:30 Dose: 200 mls/hr Insulin Aspart (Novolog Vial Sliding Scale -) 1 vial SQ ACHS [facility]; Protocol Last Admin: 01/17/18 06:02 Dose: Not Given Memantine (Namenda -) 10 mg PO DAILY@0600 [facility] Last Admin: 01/17/18 05:56 Dose: 10 mg Metoprolol Succinate (Toprol Xl -) 25 mg PO DAILY [facility] Last Admin: 01/17/18 09:28 Dose: 25 mg Pantoprazole Sodium (Protonix -) 40 mg PO DAILY [facility] Last Admin: 01/17/18 09:28 Dose: 40 mg Pramipexole Dihydrochloride (Mirapex -) 0.5 mg PO 1999 [facility] Last Admin: 01/16/18 20:50 Dose: 0.5 mg Tiotropium [place] (Spiriva -) 1 puff IH DAILY [facility] Last Admin: 01/17/18 09:28 Dose: 1 puff Trazodone HCl (Desyrel -) 50 mg PO [facility] Last Admin: 01/16/18 21:26 Dose: 50 mg - Objective Vital Signs: Vital Signs Temperature 97.7 F 01/17/18 10:00 Pulse Rate 77 01/17/18 10:00 Respiratory Rate 18 01/17/18 10:00 Blood Pressure 119/79 01/17/18 10:00 O2 Sat by Pulse Oximetry (%) 95 01/16/18 21:00 Labs: CBC, BMP 01/14/18 05:30 01/17/18 06:15 Problem List - Problems (1) Chronic osteomyelitis Code(s): M86.60 - OTHER CHRONIC OSTEOMYELITIS, UNSPECIFIED SITE (2) MRSA infection Code(s): A49.02 - METHICILLIN RESIS STAPH INFECTION, UNSP SITE (3) Diabetic foot Code(s): E11.8 - TYPE 2 DIABETES MELLITUS WITH UNSPECIFIED COMPLICATIONS Assessment/Plan Microbiology 01/12/18 22:00 Foot - Right Plantar Gram Stain - Final 01/12/18 22:00 Foot - Right Plantar Wound Culture - Final Enterococcus Faecalis Yeast Like Organism Staphylococcus Coagulase Neg Stenotrophomon.(X.)Maltophilia 01/11/18 12:00 Foot - Right Plantar Gram Stain - Final 01/11/18 12:00 Foot - Right Plantar Wound Culture - Final Kluyvera Ascorbata Stenotrophomon.(X.)Maltophilia Acinetobacter Lwoffii Enterococcus Faecalis Alpha Hemolytic Streptococcus Diphtheroid/Corynebacterium Staphylococcus Coagulase Neg Laboratory Tests 01/14/18 01/14/18 01/17/18 05:30 06:00 06:15 WBC 5.6 Hgb 12.9 Hct 43.0 Plt Count 135 Neutrophils % (Manual) 55.0 D Lymphocytes % (Manual) 27.0 D Monocytes % (Manual) 12 H D Eosinophils % (Manual) 5.0 H D BUN 15 Creatinine 1.4 H Creat Clearance w eGFR 50.55 Random Vancomycin 13.01 Assessment Osteomyelitis of the foot on IV antibiotics Superfical wound cultures typically poly microbial with MDRO noted Cannot not treat all of those organisms Plan Insert PICC line for vanco and Zosyn for now Follow up with Dr Sanders outpt Duration of therapy can be decided after he is reevaluated by surgery Emmanuel BANEGAS
[2018-01-17] MEDS ORDERED: INSULIN (NOVOLOG) ASPART 100 UNITS/ML 10ML VIAL ONE ×2 (11:52→20:47)
--- NOTE | 2018-01-17 13:02 | PN ---
Progress Note, Physician History of Present Illness: The patient seen in his room. Comfortable. The patient is a 67-year-old male, with a past medical history of DM, CKD, COPD , CVA, GOUT, HTN, osteomyelitis, and Parkinsons admitted for management of infected right foot ulcer. The patient is followed by Dr. Sanders for the wounds on his feet. Dr. Sanders's notes noted. He Chronic Kidney disease. He has no dysuria, no hematura. has significant nocturia. - Current Medication List Current Medications: Active Medications Acetaminophen (Tylenol -) 650 mg PO Q6H PRN PRN Reason: PAIN LEVEL 4 - 6 Last Admin: 01/13/18 17:54 Dose: 650 mg Albuterol/Ipratropium (Duoneb -) 1 amp NEB RQID [facility] Last Admin: 01/17/18 12:07 Dose: 1 amp Amlodipine Besylate (Norvasc -) 5 mg PO DAILY [facility] Last Admin: 01/17/18 09:28 Dose: 5 mg Atorvastatin Calcium (Lipitor -) 20 mg PO HS [facility] Last Admin: 01/16/18 21:26 Dose: 20 mg Clopidogrel Bisulfate (Plavix -) 75 mg PO DAILY [facility] Last Admin: 01/17/18 09:28 Dose: 75 mg Gentamicin Sulfate (Garamycin 0.1% Ointment -) 1 applic TP BID [facility] Last Admin: 01/17/18 09:29 Dose: 1 applic Guaifenesin (Diabetic Tussin Dm -) 10 ml PO Q6H PRN PRN Reason: COUGH Last Admin: 01/16/18 06:26 Dose: 10 ml Piperacillin Sod/Tazobactam (Sod 2.25 gm/ Dextrose) 50 mls @ 100 mls/hr IVPB Q6H-IV [facility]; Protocol Last Admin: 01/17/18 09:28 Dose: 100 mls/hr Vancomycin HCl (Vancomycin 1 Gm Premix -) 1 gm in 200 mls @ 200 mls/hr IVPB DAILY@1500 [facility]; Protocol Last Admin: 01/16/18 15:30 Dose: 200 mls/hr Insulin Aspart (Novolog Vial Sliding Scale -) 1 vial SQ ACHS [facility]; Protocol Last Admin: 01/17/18 11:53 Dose: 2 units Memantine (Namenda -) 10 mg PO DAILY@0600 [facility] Last Admin: 01/17/18 05:56 Dose: 10 mg Metoprolol Succinate (Toprol Xl -) 25 mg PO DAILY [facility] Last Admin: 01/17/18 09:28 Dose: 25 mg Pantoprazole Sodium (Protonix -) 40 mg PO DAILY [facility] Last Admin: 01/17/18 09:28 Dose: 40 mg Pramipexole Dihydrochloride (Mirapex -) 0.5 mg PO 2000 [facility] Last Admin: 01/16/18 20:50 Dose: 0.5 mg Tiotropium [place] (Spiriva -) 1 puff IH DAILY [facility] Last Admin: 01/17/18 09:28 Dose: 1 puff Trazodone HCl (Desyrel -) 50 mg PO HS [facility] Last Admin: 01/16/18 21:26 Dose: 50 mg - Objective Vital Signs: Vital Signs Temperature 97.7 F 01/17/18 10:00 Pulse Rate 77 01/17/18 10:00 Respiratory Rate 18 01/17/18 10:00 Blood Pressure 119/79 01/17/18 10:00 O2 Sat by Pulse Oximetry (%) 90 L 01/17/18 09:00 Constitutional: Yes: No Distress, Anxious Eyes: Yes: Conjunctiva Clear HENT: Yes: Normocephalic Neck: Yes: Trachea Midline Cardiovascular: Yes: S1, S2 Respiratory: Yes: CTA Bilaterally, Diminished Gastrointestinal: Yes: Normal Bowel Sounds, Soft Genitourinary: No: Bladder Distention, CVA Tenderness - Left, CVA Tenderness - Right, Hematuria Musculoskeletal: Yes: Joint Stiffness Extremities: Yes: Other (Plantar ulcer) Wound/Incision: Yes: Dressing Dry and Intact Neurological: Yes: Alert, Oriented Psychiatric: Yes: Oriented Labs: CBC, BMP 01/14/18 05:30 01/17/18 06:15 Problem List - Problems (1) Chronic osteomyelitis Code(s): M86.60 - OTHER CHRONIC OSTEOMYELITIS, UNSPECIFIED SITE (2) Diabetic infection of right foot Code(s): E11.69 - TYPE 2 DIABETES MELLITUS WITH OTHER SPECIFIED COMPLICATION; L08.9 - LOCAL INFECTION OF THE SKIN AND SUBCUTANEOUS TISSUE, UNSP (3) JESÚS (acute kidney injury) Code(s): N17.9 - ACUTE KIDNEY FAILURE, UNSPECIFIED (4) Diabetic infection of left foot Code(s): E11.69 - TYPE 2 DIABETES MELLITUS WITH OTHER SPECIFIED COMPLICATION; L08.9 - LOCAL INFECTION OF THE SKIN AND SUBCUTANEOUS TISSUE, UNSP (5) Osteomyelitis due to type 2 diabetes mellitus Code(s): E11.69 - TYPE 2 DIABETES MELLITUS WITH OTHER SPECIFIED COMPLICATION; M86.9 - OSTEOMYELITIS, UNSPECIFIED (6) Wound infection Code(s): T14.8 - OTHER INJURY OF UNSPECIFIED BODY REGION * DO NOT USE *; L08.9 - LOCAL INFECTION OF THE SKIN AND SUBCUTANEOUS TISSUE, UNSP (7) Anemia Code(s): D64.9 - ANEMIA, UNSPECIFIED Qualifiers: Anemia type: unspecified type Qualified Code(s): D64.9 - Anemia, unspecified (8) CKD (chronic kidney disease) Code(s): N18.9 - CHRONIC KIDNEY DISEASE, UNSPECIFIED Qualifiers: Chronic kidney disease stage: stage 3 (moderate) Qualified Code(s): N18.3 - Chronic kidney disease, stage 3 (moderate) (9) Coronary artery disease Code(s): I25.10 - ATHSCL HEART DISEASE OF [place] CORONARY ARTERY W/O ANG PCTRS Qualifiers: Coronary Disease-Associated Artery/Lesion type: [place] artery [place] vs. transplanted heart: [place] heart Associated angina: without angina Qualified Code(s): I25.10 - Atherosclerotic heart disease of [place] coronary artery without angina pectoris (10) Diabetes mellitus type 2 with peripheral artery disease Code(s): E11.51 - TYPE 2 DIABETES W DIABETIC PERIPHERAL ANGIOPATH W/O GANGRENE (11) Hypertension Code(s): I10 - ESSENTIAL (PRIMARY) HYPERTENSION Qualifiers: Hypertension type: essential hypertension Qualified Code(s): I10 - Essential (primary) hypertension Assessment/Plan The patient is a 67-year-old male, with a past medical history of DM, CKD, COPD , CVA, GOUT, HTN, osteomyelitis, and Parkinsons, admitted with infected foot ulcer (R). Acute Renal failure, superimposed on Chronic Kidney disease... The Acute has improved to some extent. Serum K normal. Significant post void urine. The patient refuses to take Flomax, saying that his Nutritional Health Coach stopped it. 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 SUGGEST: Basic w/u as ordered. Abx per ID service. Will monitor the renal functions with you. Thank you. Yuli Rodriguez MD
[2018-01-17 13:15] LABS: BASO % 0.8 % (0-2.0); EOS % 8.1 % (0-4.5); HEMATOCRIT 49.1 % (35.4-49); HEMOGLOBIN 14.8 GM/dL (11.7-16.9); LYMPH % 18.5 % (8-40); MCH 21.8 pg (25.7-33.7); MEAN CELL VOLUME 72.7 fl (80-96); MEAN PLT VOLUME 8.8 fl (7.5-11.1); MONO % 7.5 % (3.8-10.2); NEUT % 65.1 % (42.8-82.8); PLATELET COUNT 115 K/MM3 (134-434); RBC 6.76 M/mm3 (4.00-5.60); RDW 19.1 % (11.9-15.9); WHITE BLOOD COUNT 6.4 K/mm3 (4.0-10.0)
[2018-01-17 13:59] LABS: ANISOCYTOSIS 1+; MACROCYTOSIS 1+
[2018-01-17 14:00] LABS: PLATELET ESTIMATE DECREASED
[2018-01-17] MEDS: VANCOMYCIN 1 GM PREMIX - 1 GM/200 ML BAG IVPB SCH (15:12)
[2018-01-17] MEDS ORDERED: PIPERACILLIN/TAZOB 2.25 GM 2.25 GM in DEXTROSE 5%-WATER - 50 ML IVPB SCH (17:48)
[2018-01-17] MEDS ORDERED: SODIUM CHLORIDE IVPB SCH (17:48)
[2018-01-17] MEDS ORDERED: VANCOMYCIN IVPB SCH (17:48)
[2018-01-17] MEDS: PRAMIPEXOLE DIHYDROCHLORIDE 0.5 MG TABLET PO SCH (19:41)
[2018-01-17] MEDS ORDERED: VANCOMYCIN 1,000 MG in SODIUM CHLORIDE 250 ML IVPB SCH (19:48)
[2018-01-17] MEDS: PIPERACILLIN/TAZOB 2.25 GM 2.25 GM in SODIUM CHLORIDE 50 ML IVPB SCH (21:08)
[2018-01-17] MEDS: ATORVASTATIN CA 20 MG TABLET (FP) PO SCH (21:09)
[2018-01-17] MEDS: traZODone HCL 50 MG TABLET (FP) PO SCH (21:10)
[2018-01-18] MEDS: PIPERACILLIN/TAZOB 2.25 GM 2.25 GM in SODIUM CHLORIDE 50 ML IVPB SCH ×2 (02:33→09:45)
[2018-01-18] MEDS: MEMANTINE HCL 10 MG TABLET (FP) PO SCH (05:48)
[2018-01-18] MEDS: INSULIN SLIDING SCALE (NOVOLOG) 1 VIAL SQ SCH ×3 (06:06→16:47)
[2018-01-18] MEDS: ALBUTEROL SO4 2.5/IPRATROPIUM 0.5 INH SOL 3 ML VIAL.NEB. NEB SCH (08:40)
[2018-01-18] MEDS ORDERED: PT OWN MED DRAWER 7, Y5N ONE ×2 (09:38→16:28)
[2018-01-18] MEDS: GENTAMICIN SO4 0.1% TOPICAL OINTMENT 15 GM/TUBE TUBE TP SCH (09:44)
[2018-01-18] MEDS: CLOPIDOGREL BISULFATE 75 MG TABLET (FP) PO SCH (09:45)
[2018-01-18] MEDS: amLODIPine BESYLATE 5 MG TABLET (FP) PO SCH (09:45)
[2018-01-18] MEDS: TIOTROPIUM BROMIDE 18 MCG CAPSULES IH SCH (09:45)
[2018-01-18] MEDS: PANTOPRAZOLE 40 MG TABLET (FP) PO SCH (09:45)
--- NOTE | 2018-01-18 10:11 | PN ---
Progress Note (short form) - Note Progress Note: ID Vanco and Zosyn continue Discharge planning in progress Selected Entries 01/18/18 06:15 Temperature 98.5 F Pulse Rate 70 Respiratory 18 Rate Blood Pressure 144/75 Microbiology 05/14/17 13:00 Foot - Left Plantar Gram Stain - Final 05/14/17 13:00 Foot - Left Plantar Wound Culture - Final S Aureus 05/14/17 09:08 Blood - Peripheral Venous Blood Culture - Final S Aureus 05/14/17 09:08 Blood - Peripheral Venous Blood Culture - Final Mr S Aureus 05/12/17 09:35 Blood - Peripheral Venous Blood Culture - Final Presumptive Mrsa (Pbp2a Pos) 01/12/18 22:00 Foot - Right Plantar Gram Stain - Final 01/12/18 22:00 Foot - Right Plantar Wound Culture - Final Enterococcus Faecalis Yeast Like Organism Staphylococcus Coagulase Neg Stenotrophomon.(X.)Maltophilia 01/11/18 12:00 Foot - Right Plantar Gram Stain - Final 01/11/18 12:00 Foot - Right Plantar Wound Culture - Final Kluyvera Ascorbata Stenotrophomon.(X.)Maltophilia Acinetobacter Lwoffii Enterococcus Faecalis Alpha Hemolytic Streptococcus Diphtheroid/Corynebacterium Staphylococcus Coagulase Neg Laboratory Tests 01/14/18 01/17/18 01/17/18 06:00 06:15 12:15 WBC 6.4 Hgb 14.8 D Hct 49.1 H Plt Count 115 L BUN 15 Creatinine 1.4 H Creat Clearance w eGFR 50.55 Random Vancomycin 13.01 Assessment Chronic osteomyelitis improved Plan In the interest of simplicity at home Vanco 1 gram daily Ceftriaxone 2 grams Metronidazole oral 500mg tid 3-4 weeks Emmanuel BANEGAS Problem List - Problems (1) Chronic osteomyelitis Code(s): M86.60 - OTHER CHRONIC OSTEOMYELITIS, UNSPECIFIED SITE (2) MRSA infection Code(s): A49.02 - METHICILLIN RESIS STAPH INFECTION, UNSP SITE (3) Diabetic foot Code(s): E11.8 - TYPE 2 DIABETES MELLITUS WITH UNSPECIFIED COMPLICATIONS
[2018-01-18] MEDS ORDERED: CEFTRIAXONE 2 GM in DEXTROSE 5%-WATER 100 ML IVPB SCH (10:15)
[2018-01-18] MEDS ORDERED: DEXTROSE 5%-WATER 100 ML IVPB ONE (11:01)
[2018-01-18] MEDS ORDERED: INSULIN (NOVOLOG) ASPART 100 UNITS/ML 10ML VIAL ONE (11:01)
[2018-01-18] MEDS ORDERED: PICC LINE 8 ML FLUSH PROTOCOL IVPUSH PRN (11:18)
--- NOTE | 2018-01-18 11:32 | PN ---
Progress Note, Physician Chief Complaint: The patient seen on his room. Feels better. No new complaints. Maintains good urine output. History of Present Illness: The patient seen in his room. Comfortable. The patient is a 67-year-old male, with a past medical history of DM, CKD, COPD , CVA, GOUT, HTN, osteomyelitis, and Parkinsons admitted for management of infected right foot ulcer. The patient is followed by Dr. Sanders for the wounds on his feet. Has Chronic Kidney disease. He has no dysuria, no hematura. Has significant nocturia. - Current Medication List Current Medications: Active Medications Acetaminophen (Tylenol -) 650 mg PO Q6H PRN PRN Reason: PAIN LEVEL 4 - 6 Last Admin: 01/13/18 17:54 Dose: 650 mg Albuterol/Ipratropium (Duoneb -) 1 amp NEB RQID [facility] Last Admin: 01/18/18 08:40 Dose: 1 amp Amlodipine Besylate (Norvasc -) 5 mg PO DAILY [facility] Last Admin: 01/18/18 09:45 Dose: 5 mg Atorvastatin Calcium (Lipitor -) 20 mg PO HS [facility] Last Admin: 01/17/18 21:09 Dose: 20 mg Clopidogrel Bisulfate (Plavix -) 75 mg PO DAILY [facility] Last Admin: 01/18/18 09:45 Dose: 75 mg Gentamicin Sulfate (Garamycin 0.1% Ointment -) 1 applic TP BID [facility] Last Admin: 01/18/18 09:44 Dose: 1 applic Guaifenesin (Diabetic Tussin Dm -) 10 ml PO Q6H PRN PRN Reason: COUGH Last Admin: 01/16/18 06:26 Dose: 10 ml IV Flush (Picc Line Flush) 8 ml IVPUSH PRN PRN PRN Reason: Protocol Vancomycin HCl 1,000 mg/ (Sodium Chloride) 250 mls @ 166.667 mls/hr IVPB DAILY@ 1500 [facility]; Protocol Ceftriaxone Sodium 2 gm/ (Dextrose) 100 mls @ 100 mls/hr IVPB DAILY [facility]; Protocol Insulin Aspart (Novolog Vial Sliding Scale -) 1 vial SQ ACHS [facility]; Protocol Last Admin: 01/18/18 06:06 Dose: 2 units Memantine (Namenda -) 10 mg PO DAILY@0600 [facility] Last Admin: 01/18/18 05:48 Dose: 10 mg Metoprolol Succinate (Toprol Xl -) 25 mg PO DAILY [facility] Last Admin: 01/18/18 09:45 Dose: 25 mg Metronidazole (Flagyl -) 500 mg PO TID [facility] Pantoprazole Sodium (Protonix -) 40 mg PO DAILY [facility] Last Admin: 01/18/18 09:45 Dose: 40 mg Pramipexole Dihydrochloride (Mirapex -) 0.5 mg PO 2000 [facility] Last Admin: 01/17/18 19:41 Dose: 0.5 mg Tiotropium [place] (Spiriva -) 1 puff IH DAILY [facility] Last Admin: 01/18/18 09:45 Dose: 1 puff Trazodone HCl (Desyrel -) 50 mg PO HS [facility] Last Admin: 01/17/18 21:10 Dose: 50 mg - Objective Vital Signs: Vital Signs Temperature 98.5 F 01/18/18 06:15 Pulse Rate 70 01/18/18 06:15 Respiratory Rate 18 01/18/18 06:15 Blood Pressure 144/75 01/18/18 06:15 O2 Sat by Pulse Oximetry (%) 90 L 01/17/18 21:00 Constitutional: Yes: No Distress HENT: Yes: Normocephalic Neck: Yes: Trachea Midline Cardiovascular: Yes: Regular Rate and Rhythm, S1, S2 Respiratory: Yes: CTA Bilaterally Gastrointestinal: Yes: Normal Bowel Sounds, Soft Genitourinary: No: Bladder Distention, CVA Tenderness - Left, CVA Tenderness - Right, Hematuria Musculoskeletal: No: Joint Stiffness Wound/Incision: Yes: Dressing Dry and Intact Neurological: Yes: Alert, Oriented Psychiatric: Yes: Alert, Oriented Labs: CBC, BMP 01/17/18 12:15 01/17/18 06:15 Problem List - Problems (1) Chronic osteomyelitis Code(s): M86.60 - OTHER CHRONIC OSTEOMYELITIS, UNSPECIFIED SITE (2) Diabetic infection of right foot Code(s): E11.69 - TYPE 2 DIABETES MELLITUS WITH OTHER SPECIFIED COMPLICATION; L08.9 - LOCAL INFECTION OF THE SKIN AND SUBCUTANEOUS TISSUE, UNSP (3) JESÚS (acute kidney injury) Code(s): N17.9 - ACUTE KIDNEY FAILURE, UNSPECIFIED (4) Diabetic infection of left foot Code(s): E11.69 - TYPE 2 DIABETES MELLITUS WITH OTHER SPECIFIED COMPLICATION; L08.9 - LOCAL INFECTION OF THE SKIN AND SUBCUTANEOUS TISSUE, UNSP (5) Osteomyelitis due to type 2 diabetes mellitus Code(s): E11.69 - TYPE 2 DIABETES MELLITUS WITH OTHER SPECIFIED COMPLICATION; M86.9 - OSTEOMYELITIS, UNSPECIFIED (6) Wound infection Code(s): T14.8 - OTHER INJURY OF UNSPECIFIED BODY REGION * DO NOT USE *; L08.9 - LOCAL INFECTION OF THE SKIN AND SUBCUTANEOUS TISSUE, UNSP (7) Anemia Code(s): D64.9 - ANEMIA, UNSPECIFIED Qualifiers: Anemia type: unspecified type Qualified Code(s): D64.9 - Anemia, unspecified (8) CKD (chronic kidney disease) Code(s): N18.9 - CHRONIC KIDNEY DISEASE, UNSPECIFIED Qualifiers: Chronic kidney disease stage: stage 3 (moderate) Qualified Code(s): N18.3 - Chronic kidney disease, stage 3 (moderate) (9) Coronary artery disease Code(s): I25.10 - ATHSCL HEART DISEASE OF [place] CORONARY ARTERY W/O ANG PCTRS Qualifiers: Coronary Disease-Associated Artery/Lesion type: [place] artery [place] vs. transplanted heart: [place] heart Associated angina: without angina Qualified Code(s): I25.10 - Atherosclerotic heart disease of [place] coronary artery without angina pectoris (10) Diabetes mellitus type 2 with peripheral artery disease Code(s): E11.51 - TYPE 2 DIABETES W DIABETIC PERIPHERAL ANGIOPATH W/O [place]ANGRENE (11) Hypertension Code(s): I10 - ESSENTIAL (PRIMARY) HYPERTENSION Qualifiers: Hypertension type: essential hypertension Qualified Code(s): I10 - Essential (primary) hypertension Assessment/Plan The patient is a 67-year-old male, with a past medical history of DM, CKD, COPD , CVA, GOUT, HTN, osteomyelitis, and Parkinsons, admitted with infected foot ulcer (R). Acute Renal failure, superimposed on Chronic Kidney disease... The Acute has improved to his baseline. Serum K normal. May need to restart Flomax as outpatient, once cleared by the Business Specialist. 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 SUGGEST: If discharged I will follow him as outpatient. Thank you. Yuli Rodriguez MD
--- NOTE | 2018-01-18 11:32 | DS ---
Physical Examination Vital Signs: Vital Signs Temperature 98.5 F 01/18/18 06:15 Pulse Rate 70 01/18/18 06:15 Respiratory Rate 18 01/18/18 06:15 Blood Pressure 144/75 01/18/18 06:15 O2 Sat by Pulse Oximetry (%) 90 L 01/17/18 21:00 Constitutional: Yes: Well Nourished, No Distress, Calm Cardiovascular: Yes: Regular Rate and Rhythm Respiratory: Yes: Regular Gastrointestinal: Yes: Normal Bowel Sounds, Soft Wound/Incision: Yes: Dressing Dry and Intact Neurological: Yes: Alert, Oriented Psychiatric: Yes: Oriented Labs: CBC, BMP 01/17/18 12:15 01/17/18 06:15 Discharge Summary Reason For Visit: DIABETIC INFECTION OF RIGHT FOOT Current Active Problems Chronic osteomyelitis (Acute) Diabetic infection of right foot (Acute) MRSA infection (Acute) Hospital Course: The patient is a 67-year-old male, with a past medical history of DM, CKD, COPD , CVA, GOUT, HTN, osteomyelitis, and Parkinsons, who was sent down to the ED from the wound center for evaluation of his right foot wound. The patient is followed by Dr. Patel for the wounds on his feet. As per wound center nurse , the patients foot wounds were closed last month and the wound on his right foot is now open and appears to be infected. Patient was also noted to have a low grade fever and was sent to the ED to receive IV antibiotics. The patient denies any chills, nausea, vomiting, diarrhea, or abdominal pain. Denies any shortness of breath or chest pain. Condition: Improved - Instructions Diet, Activity, Other Instructions: -Novolog Sliding scale 150-200- take 2 units 201-250- take 4 units 251-300- take 6 units 301-350- take 8 units 351-400- take 10 units > 400- take 12 units -start Metrondiazole 500 mg 3 x day for 4 weeks, sent to your pharmacy -Oxycodone 5 day supply sent to your pharmacy -Follow up with Dr Jay Sanders outpatient at Wound care center -Also, Follow up with Dr Yuli Rodriguez outpatient within next 2 weeks -Follow up with your PCP within 1 week Referrals: Johnny Giron MD, MD [Primary Care Provider] - Yuli Rodriguez MD [Staff Physician] - Jay Sanders MD [Staff Physician] - Disposition: VNS/HOME HEALTH CARE - Home Medications Comprehensive Discharge Medication List: Ambulatory Orders Tamsulosin HCl [Flomax -] 0.4 mg PO DAILY 05/11/16 traZODone HCL [Desyrel -] 50 mg PO HS 05/11/16 Metoprolol Succinate [Toprol XL -] 25 mg PO DAILY tab.sr.24h 07/19/16 Memantine HCl [Namenda Xr] 7 mg PO DAILY 07/22/16 Amlodipine Besylate [Norvasc -] 5 mg PO DAILY tablet 10/29/16 Clopidogrel Bisulfate [Plavix -] 75 mg PO DAILY tablet 10/29/16 Pantoprazole Sodium [Protonix] 40 mg PO DAILY 01/25/17 Furosemide [Lasix] 20 mg PO DAILY #0 mg 03/08/17 Ergocalciferol (Vitamin D2) [Vitamin D2] 50,000 unit PO WEEKLY 05/11/17 Pregabalin [Lyrica -] 150 mg PO BID 05/11/17 Docusate Sodium [Colace -] 100 mg PO TID #90 capsule 08/12/17 Atorvastatin Calcium 20 mg PO DAILY 11/08/17 Ferrous Sulfate [Feosol] 325 mg PO BID ud 11/11/17 Insulin Sliding Scale [Novolog Vial Sliding Scale -] 1 vial SQ ACHS units 11/11 Aclidinium [place] [Tudorza Pressair] 1 tab PO DAILY 01/11/18 Ergocalciferol (Vitamin D2) [Drisdol] 1 tab PO DAILY 01/11/18 Lidocaine 5% Patch [Lidoderm -] 1 patch TP DAILY 01/11/18 Pramipexole Di-HCl [Mirapex] 0.5 mg PO DAILY 01/11/18 Ceftriaxone [Rocephin -] 2 gm IVPB DAILY vial 01/18/18 Vancomycin 1,000 mg IVPB DAILY@1500 vial 01/18/18 metroNIDAZOLE [Flagyl -] 500 mg PO TID #90 tablet 01/18/18 oxyCODONE HCL [Roxicodone -] 5 mg PO Q8H PRN #15 tablet MDD 3 01/18/18
[2018-01-18] MEDS: metroNIDAZOLE 250 MG TABLET PO SCH ×2 (11:59→16:41)
[2018-01-18] MEDS ORDERED: VANCOMYCIN 1,000 MG in SODIUM CHLORIDE 250 ML IVPB SCH (15:00)
[2018-01-18 17:10] VITALS: BP 170/94; PULSE 66; TEMP 97.9
== END 2018-01-18 19:02 | disposition home health service (06) | DRG 638 ==
LOC: JER 12:12 → JERBED 18:15 → J4W 20:45 → OBSVTOIN 01-12 13:23 → J8W 01-14 12:11
PROVIDERS: ADMIT Internal Medicine; ATTEND Family Medicine
PROC: 02HV33Z Insertion of Infusion Device into Superior Vena Cava, Percutaneous Approach (ICD-10-PCS; principal; 2018-01-18)
DX: E11.621 Type 2 diabetes mellitus with foot ulcer (principal); L97.518 Non-pressure chronic ulcer of other part of right foot with other specified severity; I69.354 Hemiplegia and hemiparesis following cerebral infarction affecting left non-dominant side; M86.671 Other chronic osteomyelitis, right ankle and foot; E11.51 Type 2 diabetes mellitus with diabetic peripheral angiopathy without gangrene; J44.9 Chronic obstructive pulmonary disease, unspecified; M10.9 Gout, unspecified; N17.9 Acute kidney failure, unspecified; G20 Parkinson's disease; L08.9 Local infection of the skin and subcutaneous tissue, unspecified; E11.69 Type 2 diabetes mellitus with other specified complication; G47.30 Sleep apnea, unspecified; I25.10 Atherosclerotic heart disease of native coronary artery without angina pectoris; E87.5 Hyperkalemia; E78.00 Pure hypercholesterolemia, unspecified; A49.02 Methicillin resistant Staphylococcus aureus infection, unspecified site; D72.1 Eosinophilia; F17.210 Nicotine dependence, cigarettes, uncomplicated; I12.9 Hypertensive chronic kidney disease with stage 1 through stage 4 chronic kidney disease, or unspecified chronic kidney disease; E11.22 Type 2 diabetes mellitus with diabetic chronic kidney disease; N18.3 Chronic kidney disease, stage 3 (moderate); Z79.4 Long term (current) use of insulin; Z89.422 Acquired absence of other left toe(s); Z99.81 Dependence on supplemental oxygen
CPT/HCPCS: 36415; 36558; 71046-TC-FY; 73630-TC-RT-FY; 73718-TC; 76775-TC; 76856-TC; 77001-TC-FY; 80048; 80053; 80061; 82570; 82962; 83036; 83721; 84156; 85025; 85651; 86140; 87040; 87070; 87186; 87205; 93005; 93010; 93923; 93925-TC; 94640; 99284-25; C1751; G0378; G0463-25; G0480; J7620

== ENCOUNTER → 2018-03-13 | Day surgery (SDC) | payer OTHER, BC | END | disposition home or self-care (01) | LOC: JRADIR 11:35 | PROVIDERS: ATTEND Student in an Organized Health Care Education/Training Program | PROC: 0JPT0XZ Removal of Tunneled Vascular Access Device from Trunk Subcutaneous Tissue and Fascia, Open Approach (ICD-10-PCS; principal; 2018-03-13) | DX: Z45.2 Encounter for adjustment and management of vascular access device (principal) | CPT/HCPCS: 36589 ==

== ENCOUNTER 2018-04-10 17:30 | Observation (INO) | payer OTHER, BC ==
--- NOTE | 2018-04-10 18:38 | PDOC ---
Attending Attestation - Resident Resident Name: Ridge Casarez - ED Attending Attestation I have performed the following: I have examined & evaluated the patient, The case was reviewed & discussed with the resident, I agree w/resident's findings & plan, Exceptions are as noted - HPI HPI: 67 yo M history open transmetatarsal amputation R foot in January, sent from SNF as he was complaining of pain and leakage from the wound vac. - Physicial Exam PE: GENERAL: Awake, alert, and fully oriented, in no acute distress HEAD: No signs of trauma EYES: PERRLA, EOMI, sclera anicteric, conjunctiva clear ENT: Auricles normal inspection, hearing grossly normal, nares patent, oropharynx clear without exudates. Moist mucosa NECK: Normal ROM, supple, no lymphadenopathy, JVD, or masses LUNGS: Breath sounds equal, clear to auscultation bilaterally. No wheezes, and no crackles HEART: Regular rate and rhythm, normal S1 and S2, no murmurs, rubs or gallops ABDOMEN: Soft, nontender, normoactive bowel sounds. No guarding, no rebound. No masses EXTREMITIES: R foot stump with malodorous drainage, appears purulent. + Granulation tissue, slight oozing of blood at the superior portion of the wound. No surrounding erythema. Remainder of extremities with normal range of motion, no edema. No clubbing or cyanosis. No cords, erythema, or tenderness NEUROLOGICAL: Cranial nerves II through XII grossly intact. Normal speech. SKIN: Warm, Dry, normal turgor, no rashes. - Medical Decision Making Wound cultures sent. Will admit based on prior history and high risk for infection.
--- NOTE | 2018-04-10 18:54 | PDOC ---
History of Present Illness - General Stated Complaint: FOOT PAIN Time Seen by Provider: 04/10/18 18:29 History Source: Patient, Old Records Exam Limitations: No Limitations - History of Present Illness Initial Comments: 67 y/o male presenting to [facility] ER via ambulance from SNF complaining of pain and leakage from wound vac on lower right extremity. Pt is s/p open transmetatarsal amputation right foot on [address] Sanders. He was discharged to SNF. He subsequently developed septic infection requiring a second hospitalization, discharged 23 March 2018. Pt is concerned his wound is not being properly cared for at his current facility. He denies fevers, chills, diaphoresis, or overlying skin changes. Medical Hx: HTN DM CVA CKD Parkinson's Osteomyelitis Surgical Hx: Open transmetatarsal amputation right foot (01/2018) Left 2nd Toe Amputation Appendectomy Cholecystectomy Past History - Past Medical History Allergies/Adverse Reactions: Allergies Allergy/AdvReac Type Severity Reaction Status Date / Time No Known Drug Allergies Allergy Verified 04/10/18 18:37 Home Medications: Ambulatory Orders Tamsulosin HCl [Flomax -] 0.4 mg PO DAILY 05/11/16 traZODone HCL [Desyrel -] 50 mg PO HS 05/11/16 Metoprolol Succinate [Toprol XL -] 25 mg PO DAILY tab.sr.24h 07/19/16 Memantine HCl [Namenda Xr] 7 mg PO DAILY 07/22/16 Amlodipine Besylate [Norvasc -] 5 mg PO DAILY tablet 10/29/16 Pantoprazole Sodium [Protonix] 40 mg PO DAILY 01/25/17 Furosemide [Lasix] 20 mg PO DAILY #0 mg 03/08/17 Pregabalin [Lyrica -] 150 mg PO BID 05/11/17 Docusate Sodium [Colace -] 100 mg PO TID #90 capsule 08/12/17 Ferrous Sulfate [Feosol] 325 mg PO BID ud 11/11/17 Insulin Sliding Scale [Novolog Vial Sliding Scale -] 1 vial SQ ACHS units 11/11 Ergocalciferol (Vitamin D2) [Drisdol] 1 tab PO DAILY 01/11/18 Lidocaine 5% Patch [Lidoderm -] 1 patch TP DAILY 01/11/18 Pramipexole Di-HCl [Mirapex] 0.5 mg PO DAILY 01/11/18 Albuterol 2.5/Ipratropium 0.5 [Duoneb -] 1 amp NEB RQID amp 03/02/18 Insulin (Levemir) [Levemir Vial] 16 units SQ AM units 03/02/18 Insulin Sliding Scale [Novolog Vial Sliding Scale -] 1 vial SQ TIDAC units 09/18 Polyethylene Glycol 3350 [Miralax 119 gm Btl -] 17 gm PO DAILY bottle 03/02/18 Sennosides [Senna -] 2 tab PO HS tablet 03/02/18 Zinc Sulfate [Orazinc -] 220 mg PO BID capsule 03/02/18 oxyCODONE HCL [Roxicodone -] 10 mg PO Q4H PRN tablet MDD 6 03/02/18 Aclidinium [place] [Tudorza Pressair] 400 mcg IH DAILY 04/10/18 Oxybutynin Chloride 5 mg PO DAILY 04/10/18 Rifampin [Rifadin -] 300 mg PO DAILY 04/10/18 Anemia: Yes Asthma: Yes Cancer: No Cardiac Disorders: Yes (CAD) CVA: Yes (x5; residual L sided weakness) COPD: Yes (3L O2 NC AT HOME) CHF: No DVT: No Dementia: No Diabetes: Yes (IDDM) GI Disorders: No Disorders: Yes (kidney stones; JESÚS) HTN: Yes Hypercholesterolemia: Yes Liver Disease: No Seizures: No Thyroid Disease: No - Surgical History Abdominal Surgery: No Appendectomy: Yes Cardiac Surgery: No Cholecystectomy: Yes Lung Surgery: No Neurologic Surgery: No Orthopedic Surgery: (Left 2nd toe amputation) - Immunization History Immunization Up to Date: Yes - Suicide/Smoking/Psychosocial Hx Smoking Status: No Smoking History: Unknown if ever smoked Have you smoked in the past 12 months: No Number of Cigarettes Smoked Daily: 3 If you are a former smoker, when did you quit?: 2017 Information on smoking cessation initiated: No 'Breaking Loose' booklet given: 08/07/17 Hx Alcohol Use: No Drug/Substance Use Hx: No Substance Use Type: None Hx Substance Use Treatment: No Review of Systems - Review of Systems Able to Perform ROS?: Yes Is the patient limited Czech proficient: No Constitutional: No: Chills, Diaphoresis, Fever Respiratory: No: Cough, Shortness of Breath Cardiac (ROS): No: Chest Pain, Syncope ABD/GI: No: Constipated, Diarrhea, Nausea, Vomiting, Abdominal cramping : No: Burning, Dysuria, Discharge, Frequency, Flank Pain, Hematuria Musculoskeletal: Yes: See HPI, Joint Pain Integumentary: No: Erythema Neurological: No: Weakness Hematologic/Lymphatic: No: Easy Bleeding, Easy Bruising *Physical Exam - Vital Signs Last Vital Signs Temp Pulse Resp BP Pulse Ox 98.5 F 78 16 116/62 95 04/10/18 18:37 04/10/18 18:37 04/10/18 18:37 04/10/18 18:37 04/10/18 18:37 - Physical Exam Comments: Constitutional: Well-developed, well-nourished male in no acute distress. Found sitting upright in hospital bed. Alert and oriented x4. Answered all questions appropriately and completely. Speech was non-labored, non-pressured. HEENT: Normocephalic. No obvious external signs of trauma. Hearing grossly normal. No nasal discharge. Neck is supple, trachea is midline. Cardiovascular: Regular rate and regular rhythm. No murmur, rubs, clicks, or gallops. Peripheral pulses: Radial pulses full. Respiratory: Breathing unlabored. Equal chest rise and fall. Clear to auscultation bilaterally. No stridor, no wheezing, no rhonchi. Gastrointestinal: abdomen is soft, non-tender, non-distended. Neuro: Alert and oriented. Moving all four extremities spontaneously. Ext / Skin: Right lower extremity stump noted with clean and dry bandages in place. Bandages taken down revealing small amount of purulent material on inner most bandage and malodor, wound itself is well appearing with granulation tissue and minimal sanguineous oozing. No overlying cellulitic lesions or lymphatic streaking. Globally, skin is warm, dry, and intact. No bruising, rashes, or other lesions. Psych: Affect: appropriate. Mood: normal. ED Treatment Course - LABORATORY CBC & Chemistry Diagram: 04/10/18 19:36 04/10/18 19:36 Medical Decision Making - Medical Decision Making *Reviewed nursing notes and prior visit documentation. 67 y/o male presenting with pain and concern for wound care management at post- op site. H/o diabetes and poor wound healing. No systemic symptoms. Afebrile. Vitals unremarkable for hypotension or tachycardia. Physical exam revealed malorder and small amount of purulent material on dressing but otherwise well appearing. D/d to include normal wound healing, post-op wound infection, recurrent osteomyelitis, and neuropathic pain. Will obtain CBC, CMP, and plain films of extremity. Ordered tramadol for pain. Per my wet read, plain films do not show subcutaneous emphysema or osteolytic lesions. Awaiting formal read. CBC unremarkable for anemia or leukocytosis. CMP unremarkable for electrolyte derangement. LFTs not elevated. Azotemia noted , however this appears to be baseline per previous records. Discussed imaging and laboratory results with pt. Answered all questions. Pt expressed verbal understanding and agreement with plan to admit for observation and wound care. *DC/Admit/Observation/Transfer Diagnosis at time of Disposition: Diabetes mellitus type 2 with peripheral artery disease Wound, open, foot Qualifiers: Encounter type: initial encounter Laterality: right Qualified Code(s): S91.301A - Unspecified open wound, right foot, initial encounter - Discharge Dispostion Condition at time of disposition: Fair Decision to Admit order: Yes - Referrals - Patient Instructions - Post Discharge Activity
[2018-04-10 19:49] LABS: BASO % 1.1 % (0-2.0); HEMATOCRIT 40.3 % (35.4-49); HEMOGLOBIN 12.7 GM/dL (11.7-16.9); LYMPH % 16.8 % (8-40); MCH 22.1 pg (25.7-33.7); MCHC 31.4 g/dl (32.0-35.9); MEAN CELL VOLUME 70.4 fl (80-96); MONO % 8.9 % (3.8-10.2); NEUT % 68.2 % (42.8-82.8); PLATELET COUNT 214 K/MM3 (134-434); RBC 5.73 M/mm3 (4.00-5.60); RDW 19.6 % (11.9-15.9); WHITE BLOOD COUNT 9.1 K/mm3 (4.0-10.0)
[2018-04-10 20:30] LABS: ANION GAP 8 MMOL/L (8-16); BILIRUBIN,TOTAL 0.3 mg/dL (0.2-1.0); BLOOD UREA NITROGEN 25 mg/dL (7-18); CALCIUM 8.9 mg/dL (8.5-10.1); CHLORIDE 101 mmol/L (98-107); CO2 28 mmol/L (21-32); CREATININE 1.7 mg/dL (0.7-1.3); GLUCOSE,RANDOM 113 mg/dL (74-106); SGOT/AST 34 U/L (15-37); SGPT/ALT 53 U/L (12-78); SODIUM 137 mmol/L (136-145)
[2018-04-10 20:31] LABS: ALK PHOS 223 U/L (45-117)
[2018-04-10] MEDS ORDERED: traMADol HCL 50 MG TABLET PO ONE (20:40)
[2018-04-10] MEDS ORDERED: traMADol HCL 50 MG TABLET ONE (20:45)
[2018-04-10] MEDS ORDERED: AMPICILLIN NA/SULBACTAM NA 3 GM in SODIUM CHLORIDE 100 ML IVPB ONE (22:17)
[2018-04-10] MEDS ORDERED: oxyCODONE HCL 5 MG TABLET PO ONE (23:07)
[2018-04-10] MEDS ORDERED: oxyCODONE HCL 5 MG TABLET ONE (23:24)
--- NOTE | 2018-04-11 00:28 | HP ---
CHIEF COMPLAINT: right foot pain PCP: Carlton HISTORY OF PRESENT ILLNESS: This is a 67 year old male with a significant past medical history of DM with PVD who is s/p transmet amputation right foot on 02/24/18 who presented to the ED from [facility] for pain and swelling to his right foot. Pt also reports that his dressing was leaking since last change on and the correction neglected to change it as scheduled on Tuesday. He was concerned for recurrent infection and asked to be brought to the ED. ED resident reported foul smell to dressing upon removal. ER course was notable for: (1) WBC 9.1 Recent Travel: pt denies PAST MEDICAL HISTORY: COPD(3 L O2 at home) asthma pulmonary fibrosis sleep apnea DM CAD CVA(left sided weakness) hypertension hyperlipidemia gout renal insufficiency chronic foot wounds, followed by vasc surgery PAST SURGICAL HISTORY: L second toe amputation appendectomy cholecystectomy tonsillectomy ?B/L leg stent eye surgery due to fractured orbit 07/2016 R carotid endarterectomy Social History: retired [employer] Smoking: Quit May 2016, smoked 5-7 cig/day Alcohol: Occ Drugs: pt denies Family History: extremely poor historian, history limited mother age 86, alzheimer's and "a lot of other problems" father age 94, prostate CA Allergies No Known Drug Allergies Allergy (Verified 04/10/18 18:37) HOME MEDICATIONS: 3 Medication Instructions Recorded Tamsulosin HCl [Flomax -] 0.4 mg PO DAILY 05/11/16 traZODone HCL [Desyrel -] 50 mg PO HS 05/11/16 Metoprolol Succinate [Toprol XL -] 25 mg PO DAILY tab.sr.24h 07/19/16 Amlodipine Besylate [Norvasc -] 5 mg PO DAILY tablet 10/29/16 Pantoprazole Sodium [Protonix] 40 mg PO DAILY 01/25/17 Furosemide [Lasix] 20 mg PO DAILY #0 mg 03/08/17 Pregabalin [Lyrica -] 150 mg PO BID 05/11/17 Ferrous Sulfate [Feosol] 325 mg PO BID ud 11/11/17 Ergocalciferol (Vitamin D2) 1 tab PO WEEKLY 01/11/18 [Drisdol] Lidocaine 5% Patch [Lidoderm -] 1 patch TP DAILY 01/11/18 Pramipexole Di-HCl [Mirapex] 0.5 mg PO DAILY 01/11/18 Albuterol 2.5/Ipratropium 0.5 1 amp NEB RQID amp 03/02/18 [Duoneb -] Insulin (Levemir) [Levemir Vial] 16 units SQ AM units 03/02/18 Insulin Sliding Scale [Novolog 1 vial SQ TIDAC units 03/02/18 Vial Sliding Scale -] Polyethylene Glycol 3350 [Miralax 17 gm PO DAILY bottle 03/02/18 119 gm Btl -] Sennosides [Senna -] 2 tab PO HS tablet 03/02/18 Zinc Sulfate [Orazinc -] 220 mg PO BID capsule 03/02/18 Aclidinium [place] [Tudorza 400 mcg IH DAILY 04/10/18 Pressair] Aa/Hydrolyzed Collagen, Whey [Lps 30 ml PO BID 04/11/18 15-30 Liquid] Acetaminophen 650 mg PO Q6H PRN 04/11/18 Ascorbic Acid [Vitamin C -] 500 mg PO BID 04/11/18 Atorvastatin [place] [Lipitor] 20 mg PO HS 04/11/18 Clopidogrel Bisulfate [Plavix -] 75 mg PO DAILY 04/11/18 Docusate Sodium [Colace -] 300 mg PO HS 04/11/18 Guaifenesin 400 mg PO Q8H PRN 04/11/18 Heparin - 5,000 unit SQ BID 04/11/18 Memantine HCl 5 mg PO BID 04/11/18 Methylnaltrexone [place] [Relistor] 12 mg SQ DAILY 04/11/18 oxyCODONE HCL [Roxicodone -] 10 mg PO Q6H PRN MDD 4 04/11/18 REVIEW OF SYSTEMS CONSTITUTIONAL: Absent: fever, chills, diaphoresis, generalized weakness, malaise, loss of appetite, weight change HEENT: Absent: rhinorrhea, nasal congestion, throat pain, throat swelling, difficulty swallowing, mouth swelling, ear pain, eye pain, visual changes CARDIOVASCULAR: Absent: chest pain, syncope, palpitations, irregular heart rate, lightheadedness , peripheral edema RESPIRATORY: Absent: cough, shortness of breath, dyspnea with exertion, orthopnea, wheezing, stridor, hemoptysis GASTROINTESTINAL: Absent: abdominal pain, abdominal distension, nausea, vomiting, diarrhea, constipation, melena, hematochezia GENITOURINARY: Absent: dysuria, frequency, urgency, hesitancy, hematuria, flank pain, genital pain MUSCULOSKELETAL: Present: foot pain, drainage from wound Absent: myalgia, arthralgia, joint swelling, back pain, neck pain SKIN: Absent: rash, itching, pallor HEMATOLOGIC/IMMUNOLOGIC: Absent: easy bleeding, easy bruising, lymphadenopathy, frequent infections ENDOCRINE: Absent: unexplained weight gain, unexplained weight loss, heat intolerance, cold intolerance NEUROLOGIC: Absent: headache, focal weakness or paresthesias, dizziness, unsteady gait, seizure, mental status changes, bladder or bowel incontinence PSYCHIATRIC: Absent: anxiety, depression, suicidal or homicidal ideation, hallucinations. PHYSICAL EXAMINATION Vital Signs - 24 hr 3 04/10/18 04/10/18 18:37 23:02 Temperature 98.5 F Pulse Rate 78 Pulse Rate [ 75 Apical] Respiratory 16 Rate Blood Pressure 116/62 Blood Pressure 125/71 [Right Arm] O2 Sat by Pulse 95 Oximetry (%) GENERAL: Awake, alert, and fully oriented, in no acute distress. HEAD: Normal with no signs of trauma. EYES: Pupils equal, round and reactive to light, extraocular movements intact, sclera anicteric, conjunctiva clear. No lid lag. EARS, NOSE, THROAT: Ears normal, nares patent, oropharynx clear without exudates. Moist mucous membranes. NECK: Normal range of motion, supple without lymphadenopathy, JVD, or masses. LUNGS: Breath sounds equal, clear to auscultation bilaterally. No wheezes, and no crackles. No accessory muscle use. HEART: Regular rate and rhythm, normal S1 and S2 without murmur, rub or gallop. ABDOMEN: Soft, nontender, not distended, normoactive bowel sounds, no guarding, no rebound, no masses. No hepatomegaly or splenomegaly. MUSCULOSKELETAL: Normal range of motion at all joints. No bony deformities or tenderness. No CVA tenderness. UPPER EXTREMITIES: 2+ pulses, warm, well-perfused. No cyanosis. No clubbing. No peripheral edema. LOWER EXTREMITIES: 2+ pulses, warm, well-perfused. No calf tenderness. No peripheral edema. NEUROLOGICAL: Cranial nerves II-XII intact. Normal speech. Normal gait. PSYCHIATRIC: Cooperative. Good eye contact. Appropriate mood and affect. SKIN: Warm, dry, normal turgor, no rashes or lesions noted, normal capillary refill. left foot with callous to plantar aspect, right foot transmet amputation site clean, granulation tissue 100% wound. No slough. no foul odor. + dark discoloration of skin half way up lower leg, no excessive warmth Laboratory Results - last 24 hr 3 04/10/18 04/10/18 19:36 19:36 WBC 9.1 RBC 5.73 H Hgb 12.7 Hct 40.3 D MCV 70.4 L MCH 22.1 L MCHC 31.4 L RDW 19.6 H Plt Count 214 D MPV 10.0 Absolute Neuts (auto) 6.2 Neutrophils % 68.2 Lymphocytes % 16.8 Monocytes % 8.9 Eosinophils % 5.0 H Basophils % 1.1 Nucleated RBC % 0 Sodium 137 Potassium 5.0 Chloride 101 Carbon Dioxide 28 Anion Gap 8 BUN 25 H Creatinine 1.7 H Creat Clearance w eGFR 40.40 Random Glucose 113 H D Calcium 8.9 Total Bilirubin 0.3 AST 34 D ALT 53 D Alkaline Phosphatase 223 H D Total Protein 8.0 Albumin 3.0 L ECG normal sinus rhythm vent rate 73. QTC [address]/T wave changes ASSESSMENT/PLAN: 67yM with DM with PVD, neuropathy and nephropathy, HTN, HLD, CVA, CAD, COPD ( 3LNC), asthma, pulmmonary fibrosis, sleep apnea, gout, chronic foot wounds, osteomyelitis presented to the ED for evaluation of his right foot wound. right foot wound - s/p transmet 02/24/18 - wound appears clean, no excessive warmth to foot - given unasyn in ED but given appearance of wound, doubt active infection, will hold on further Antibiotics - ID consult - Vascular consult - pt reassured wound looks good - cont oxycodone, lyrica for pain HTN/HLD/CAD - cont home meds: norvasc/lasix/lipitor PVD - cont plavix DM - cont home levemir and novolog sliding scale - bgm AC/HS CKD - slight bump in creatinine, pt encourage to increase fluids hyperkalemia, mild - repeat in am COPD/Asthma - cont home meds: duoneb, guaifenesin prn, home tudorza changed to formulary spiriva DVT PPX - cont home heparin sc FEN - tolerating po fluids - bmp in am - diabetic/low sodium diet as tolerated Dispo: Pt currently requires further observation. Visit type - Emergency Visit Emergency Visit: Yes ED Registration Date: 04/10/18 Care time: The patient presented to the Emergency Department on the above date and was hospitalized for further evaluation of their emergent condition. - New Patient This patient is new to me today: Yes Date on this admission: 04/11/18 - Critical Care Critical Care patient: No Hospitalist Screening - Colonoscopy Questionnaire Colonoscopy Questionnaire: Colonoscopy Questionnaire - Patient: 50 - 75 years old and never had a screening colonoscopy: No History of colon or rectal polyps, or CA: No History of IBD, Crohn's disease or UC: No History of abdominal radiation therapy as a child: No - Relative: 1 with colon or rectal CA, or polyps at age 60 or younger: No Colon or rectal CA diagnosed at age 45 or younger: No Multiple relatives with colon or rectal CA: No - Outcome: Screening Result: Negative Screen
[2018-04-11 01:36] VITALS: BMI 28.7
[2018-04-11] MEDS ORDERED: oxyCODONE HCL 5 MG TABLET PO PRN (01:36)
[2018-04-11] MEDS ORDERED: guaiFENesin 200 MG/10 ML 10 ML UNIT-DOSE CUPS PO PRN (01:36)
[2018-04-11] MEDS: PREGABALIN 75 MG CAPSULE PO SCH ×3 (02:39→22:12)
[2018-04-11] MEDS: INSULIN SLIDING SCALE (NOVOLOG) 1 VIAL SQ SCH ×3 (06:39→16:53)
[2018-04-11] MEDS: INSULIN (LEVEMIR) 100 UNITS/ML UNITS SQ SCH (06:41)
[2018-04-11] MEDS ORDERED: INSULIN (LEVEMIR) 100 UNITS/ML UNITS SQ ONE ×2 (06:53→21:34)
[2018-04-11 07:04] LABS: BASO % 0.7 % (0-2.0); EOS % 5.6 % (0-4.5); HEMATOCRIT 35.1 % (35.4-49); HEMOGLOBIN 10.7 GM/dL (11.7-16.9); LYMPH % 17.9 % (8-40); MCH 21.3 pg (25.7-33.7); MCHC 30.4 g/dl (32.0-35.9); MEAN CELL VOLUME 70.1 fl (80-96); MEAN PLT VOLUME 9.5 fl (7.5-11.1); MONO % 10.1 % (3.8-10.2); NEUT % 65.7 % (42.8-82.8); PLATELET COUNT 170 K/MM3 (134-434); RBC 5.01 M/mm3 (4.00-5.60); RDW 19.3 % (11.9-15.9); WHITE BLOOD COUNT 7.9 K/mm3 (4.0-10.0)
[2018-04-11] MEDS: ALBUTEROL SO4 2.5/IPRATROPIUM 0.5 INH SOL 3 ML VIAL.NEB. NEB SCH ×4 (07:35→20:35)
[2018-04-11 07:43] LABS: ANION GAP 7 MMOL/L (8-16); BLOOD UREA NITROGEN 25 mg/dL (7-18); CALCIUM 8.7 mg/dL (8.5-10.1); CHLORIDE 102 mmol/L (98-107); CO2 29 mmol/L (21-32); GLUCOSE,RANDOM 128 mg/dL (74-106); MAGNESIUM 1.9 mg/dL (1.8-2.4); POTASSIUM 5.2 mmol/L (3.5-5.1); SODIUM 138 mmol/L (136-145)
[2018-04-11 07:44] LABS: CREATININE 1.6 mg/dL (0.7-1.3)
[2018-04-11] MEDS: TAMSULOSIN HCL 0.4 MG CAP.ER.24H (FP) PO SCH (08:42)
[2018-04-11] MEDS ORDERED: PATIENT'S OWN MEDICATION (NON-FORMULARY) (Aa/Hydrolyzed Collagen, Whey [Lps 15-30 Liquid] PO SCH (10:00)
[2018-04-11] MEDS ORDERED: LIDOCAINE 5% TOPICAL PATCH TP SCH (10:00)
[2018-04-11 10:11] LABS: ANISOCYTOSIS 1+; MACROCYTOSIS 1+; PLATELET ESTIMATE NORMAL; TARGET CELLS 1+
[2018-04-11] MEDS ORDERED: PT OWN MED DRAWER 7, Y5N ONE ×2 (11:00→16:37)
[2018-04-11] MEDS: POLYETHYLENE GLYCOL 3350 119 GM BTL PO SCH (11:11)
[2018-04-11] MEDS: LIDOCAINE 5% TOPICAL PATCH TP SCH (11:12)
[2018-04-11] MEDS: ASCORBIC ACID 500 MG TABLET (FP) PO SCH ×2 (11:14→22:12)
[2018-04-11] MEDS: ZINC SULFATE 220 MG CAPSULE (FP) PO SCH ×2 (11:14→22:12)
[2018-04-11] MEDS: FERROUS SO4 325 MG TABLET (FP) PO SCH ×2 (11:14→22:12)
[2018-04-11] MEDS: FUROSEMIDE 20 MG TABLET (FP) PO SCH (11:14)
[2018-04-11] MEDS: PANTOPRAZOLE 40 MG TABLET (FP) PO SCH (11:14)
[2018-04-11] MEDS: amLODIPine BESYLATE 5 MG TABLET (FP) PO SCH (11:14)
[2018-04-11] MEDS: CLOPIDOGREL BISULFATE 75 MG TABLET (FP) PO SCH (11:14)
[2018-04-11] MEDS: metoPROLOL SUCCINATE 25 MG TAB.SR.24H (FP) PO SCH (11:14)
[2018-04-11] MEDS: TIOTROPIUM BROMIDE 2.5 MCG (SPIRIVA) RESPIMAT INHALER IH SCH (11:15)
[2018-04-11] MEDS: PRAMIPEXOLE DIHYDROCHLORIDE 0.5 MG TABLET PO SCH (11:16)
[2018-04-11] MEDS: MEMANTINE HCL 5 MG TABLET (UD) PO SCH ×2 (11:16→22:55)
[2018-04-11] MEDS: Methylnaltrexone Bromide 12 MG/0.6 ML KIT SQ SCH ×2 (11:16→11:27)
--- NOTE | 2018-04-11 12:05 | PN ---
Progress Note (short form) - Note Progress Note: ID Consult dictated Observe off antibiotics Local wound care
[2018-04-11] MEDS ORDERED: INSULIN (NOVOLOG) ASPART 100 UNITS/ML 10ML VIAL ONE ×2 (12:53→16:37)
--- NOTE | 2018-04-11 13:20 | CONS ---
DATE OF CONSULTATION: DATE OF DICTATION: 04/11/2018 HISTORY OF PRESENT ILLNESS: This is a 67-year-old male evaluated for possible wound infection. The patient has had multiple recent hospitalizations and is known to our service. He was hospitalized in January of this year, at which time, he underwent an open transmetatarsal amputation of the right foot on February 24, 2018. He was discharged to a [place] [facility] facility with a VAC device. In the interim, he required a readmission for sepsis syndrome characterized by fever and confusion. He was treated with a course of vancomycin and Zosyn and was ultimately discharged back to the [place] [facility] facility on March 23, 2018, off antibiotics. He now returns with reports of increased pain and drainage from the wound. He reports the VAC was not functioning well and he had developed increased wound drainage. He denied any associated fever or chills. At the present time, he is comfortable, in no acute distress. He has been afebrile with a normal white blood cell count. PAST MEDICAL HISTORY: Positive for diabetes mellitus, history of diabetic foot infections with osteomyelitis status post amputation of toe on the left foot and right transmetatarsal amputation, hypertension, stroke, chronic kidney disease, Parkinsonism, COPD, history of MRSA bacteremia. PAST SURGICAL HISTORY: Left 2nd toe amputation, appendectomy, cholecystectomy. ALLERGIES: No known allergies. LABORATORY DATA: White count 7.9, hematocrit 35.1, platelet count 170. BUN 25, creatinine 1.6. Total bilirubin 0.3, alkaline phosphatase 223, AST 34. Wound culture was obtained and is pending. PHYSICAL EXAMINATION: General: He is awake and alert. He is in no acute distress, not acutely toxic-appearing. Vital signs: Temperature 98.3, blood pressure 125/75, pulse 88 and regular, respirations 20 per minute. HEENT: Sclerae anicteric. Heart: Heart sounds S1, S2. Lungs: Clear. Abdomen: Soft and nontender. Extremities: Examination of the right lower extremity, he is status post open right transmetatarsal amputation. There is granulation tissue present in the wound. There is no purulent drainage or foul odor. There is no surrounding erythema. The distal right lower extremity has no evidence of cellulitis. Examination of the left foot, there is a dry callus present on the plantar aspect of the left foot. IMPRESSION: 1. Status post open transmetatarsal amputation of the right foot. 2. History of osteomyelitis/diabetic foot infections. 3. Diabetes mellitus. 4. Chronic kidney disease. At the present time, the surgical wound appears to be healing well without evidence of infection. Would observe off antibiotic therapy. Surgical evaluation for wound care followup. Thank you for the kind referral. GLADIS YOUSSEF M.D. [id number]
--- NOTE | 2018-04-11 14:42 | PN ---
Progress Note, Physician Chief Complaint: EVENTS AND CHART REVIEWED C/O FOUL SMELL FROM RIGHT FOOD STUMP NO FEVERS NO CHILLS - Current Medication List Current Medications: Active Medications Acetaminophen (Tylenol -) 650 mg PO Q6H PRN PRN Reason: PAIN 1-5 OR FEVER Albuterol/Ipratropium (Duoneb -) 1 amp NEB RQID ON LICENSE OF [facility] Last Admin: 04/11/18 11:40 Dose: 1 amp Amlodipine Besylate (Norvasc -) 5 mg PO DAILY ON LICENSE OF [facility] Last Admin: 04/11/18 11:14 Dose: 5 mg Ascorbic Acid (Vitamin C -) 500 mg PO BID ON LICENSE OF [facility] Last Admin: 04/11/18 11:14 Dose: 500 mg Atorvastatin [place]cium (Lipitor -) 20 mg PO HS ON LICENSE OF [facility] Clopidogrel Bisulfate (Plavix -) 75 mg PO DAILY ON LICENSE OF [facility] Last Admin: 04/11/18 11:14 Dose: 75 mg Docusate Sodium (Colace -) 300 mg PO [facility] Ergocalciferol (Drisdol -) 50,000 unit PO Sa@1000 ON LICENSE OF [facility] Ferrous Sulfate (Feosol -) 325 mg PO BID ON LICENSE OF [facility] Last Admin: 04/11/18 11:14 Dose: 325 mg Furosemide (Lasix -) 20 mg PO DAILY ON LICENSE OF [facility] Last Admin: 04/11/18 11:14 Dose: 20 mg Guaifenesin (Robitussin -) 20 ml PO Q8H PRN PRN Reason: COUGH/CHEST CONGESTION Insulin Aspart (Novolog Vial Sliding Scale -) 1 vial SQ TIDAC ON LICENSE OF [facility]; Protocol Last Admin: 04/11/18 12:56 Dose: 6 units Insulin Detemir (Levemir Vial) 16 units SQ AM ON LICENSE OF [facility] Last Admin: 04/11/18 06:41 Dose: 6 unit Lidocaine (Lidoderm Patch -) 1 patch TP DAILY ON [facility] Last Admin: 04/11/18 11:12 Dose: 1 patch Memantine (Namenda -) 5 mg PO BID ON LICENSE [facility] Last Admin: 04/11/18 11:16 Dose: 5 mg Methylnaltrexone [place] (Relistor -) 12 mg SQ DAILY ON LICENSE OF [facility] Last Admin: 04/11/18 11:27 Dose: Not Given Metoprolol Succinate (Toprol Xl -) 25 mg PO DAILY ON LICENSE OF [facility] Last Admin: 04/11/18 11:14 Dose: 25 mg Miscellaneous (Lidoderm Patch Removal) 1 each MC DAILY@2200 ON LICENSE OF [facility] Oxycodone HCl (Roxicodone -) 10 mg PO Q6H PRN PRN Reason: PAIN LEVEL 6-10 Pantoprazole Sodium (Protonix -) 40 mg PO DAILY ON LICENSE OF [facility] Last Admin: 04/11/18 11:14 Dose: 40 mg Polyethylene Glycol (Miralax (For Daily Use) -) 17 gm PO DAILY ON [facility] Last Admin: 04/11/18 11:11 Dose: 17 gm Pramipexole Dihydrochloride (Mirapex -) 0.5 mg PO DAILY ON [facility] OF [facility] Last Admin: 04/11/18 11:16 Dose: 0.5 mg Pregabalin (Lyrica -) 150 mg PO BID ON [facility] OF [facility] Last Admin: 04/11/18 11:13 Dose: 150 mg Senna (Senna -) 2 tab PO [facility] Tamsulosin HCl (Flomax -) 0.4 mg PO DAILY@0830 ON LICENSE OF [facility] Last Admin: 04/11/18 08:42 Dose: 0.4 mg Tiotropium [place] (Spiriva Respimat) 2 puff IH DAILY ON LICENSE OF [facility] Last Admin: 04/11/18 11:15 Dose: 2 puff Trazodone HCl (Desyrel -) 50 mg PO HS ON LICENSE OF [facility] Zinc Sulfate (Orazinc -) 220 mg PO BID ON LICENSE OF [facility] Last Admin: 04/11/18 11:14 Dose: 220 mg - Objective Vital Signs: Vital Signs Temperature 98.3 F 04/11/18 10:00 Pulse Rate 88 04/11/18 10:00 Respiratory Rate 20 04/11/18 10:00 Blood Pressure 125/75 04/11/18 10:00 O2 Sat by Pulse Oximetry (%) 93 L 04/11/18 00:31 Constitutional: Yes: Mild Distress Eyes: Yes: WNL HENT: Yes: WNL Neck: Yes: WNL Cardiovascular: Yes: WNL Respiratory: Yes: WNL Gastrointestinal: Yes: WNL Genitourinary: Yes: WNL Musculoskeletal: Yes: Muscle Weakness Extremities: Yes: Amputation, Deformity Edema: Yes Integumentary: Yes: Other Wound/Incision: Yes: Dressing Dry and Intact, Excoriated, Unapproximated Neurological: Yes: Pre-Existing Deficit ...Motor Strength: RLE (FOOT STUMP WITH ROB AMPUTATION DRESSING PRESERVED) Psychiatric: Yes: WNL Labs: CBC, BMP 04/11/18 06:30 04/11/18 06:30 Problem List - Problems (1) Diabetic foot infection Code(s): E11.69 - TYPE 2 DIABETES MELLITUS WITH OTHER SPECIFIED COMPLICATION; L08.9 - LOCAL INFECTION OF THE SKIN AND SUBCUTANEOUS TISSUE, UNSP (2) History of transmetatarsal amputation of right foot Code(s): Z89.431 - ACQUIRED ABSENCE OF RIGHT FOOT (3) Wound, open, foot Code(s): S91.309A - UNSPECIFIED OPEN WOUND, UNSPECIFIED FOOT, INITIAL ENCOUNTER Qualifiers: Encounter type: initial encounter Laterality: right Qualified Code(s): S91.301A - Unspecified open wound, right foot, initial encounter (4) Diabetes mellitus type 2 with peripheral artery disease Code(s): E11.51 - TYPE 2 DIABETES W DIABETIC PERIPHERAL ANGIOPATH W/O GANGRENE (5) Arterial occlusion, lower extremity Code(s): I74.3 - EMBOLISM AND THROMBOSIS OF ARTERIES OF THE LOWER EXTREMITIES (6) Chronic osteomyelitis Code(s): M86.60 - OTHER CHRONIC OSTEOMYELITIS, UNSPECIFIED SITE (7) Renal insufficiency Code(s): N28.9 - DISORDER OF KIDNEY AND URETER, UNSPECIFIED Assessment/Plan PODIATRY AND VASCULAR SURGERY EVAL WOUND CARE WOUND VAC ORDERED ID F/U IV ABX PER ID DM CONTROL DIETARY EDUCATION FOR DIABETES AND COMPLIANCE DVT PROPHYLAXIS
--- NOTE | 2018-04-11 15:42 | PN ---
Progress Note (short form) - Note Progress Note: Pt sent from nursing facility because he was concerned that his foot may be infected. The dressing had been leaking since and wasn't changed properly as per the patient. He noted swelling and came to the ER. Vital Signs Period Temp Pulse Resp BP Sys/Cintron Pulse Ox Last 24 Hr 98.2 F-98.6 F 70-88 16-20 116-148/62-87 93-95 GEN: A&0x3, NAD Right foot: No necrotic tissue present, wound base with granulation. No bone exposure. No surrounding erythema, mild swelling. No foul odor or drainage noted. Wound size 8x7 cm, no depth. Left foot: Healed 2nd toe amputation site. Foot warm, callous at the plantar surface(heel), palpable +2 DP pulse. CBC, BMP 04/11/18 06:30 04/11/18 06:30 <Jennie Garrido - Last Filed: 04/11/18 15:55> - Note Progress Note: Right TMA stump granulating nicely. I will schedule Skin graft as outpatient. <Jay Sanders - Last Filed: 04/12/18 14:12> Problem List - Problems (1) History of transmetatarsal amputation of right foot Assessment/Plan: Right foot healing well, no evidence of infection. Wound care: Reapplied xeroform, gauze, kerlix dressing. Ordered wound vac with black foam MWF. No pressure to right leg PT for reconditioning D/w Dr. Sanders and will see regarding possible timing/need for skin graft Code(s): Z89.431 - ACQUIRED ABSENCE OF RIGHT FOOT <Jennie Garrido - Last Filed: 04/11/18 15:55>
--- NOTE | 2018-04-11 17:15 | EKG ---
Test Reason : Blood Pressure : / mmHG Vent. Rate : 073 BPM Atrial Rate : 073 BPM P-R Int : 200 ms QRS Dur : 078 ms QT Int : 402 ms P-R-T Axes : 054 073 072 degrees QTc Int : 442 ms NORMAL SINUS RHYTHM NORMAL ECG Confirmed by MD KATHLEEN, KILO ([id number]) on 04/11/2018 5:14:46 PM Referred By: Confirmed By:KILO WANG MD
--- NOTE | 2018-04-11 18:36 | CONSULT ---
Consult Consult Specialty:: Podiatry Reason for Consultation:: Stump Tarsal area with granulation tissue right. - History of Present Illness Chief Complaint: Previous amputation tarso metatrsal area right. 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 Cardio/Vascular: Yes: HTN, Hyperlipdemia, Other (PAD) Pulmonary: Yes: Asthma, COPD, O2 Dependent, Sleep Apnea Hepatobiliary: Yes: Cholecystitis Renal/: Yes: Renal Inusuff Musculoskeletal: Yes: Other (chronic foot ulcers) Endocrine: Yes: Diabetes Mellitus - Past Surgical History Past Surgical History: Yes: Amputation (second toe left foot), Appendectomy, Carotid Endarterectomy (right), Cholecystectomy, Hernia Repair, Stent, Tonsillectomy - Alcohol/Substance Use Hx Alcohol Use: No Number of Drinks Daily: 2 (beer, cr on weekend) History of Substance Use: reports: None - Smoking History Smoking history: Former smoker Have you smoked in the past 12 months: No Aproximately how many cigarettes per day: 3 If you are a former smoker, when did you quit?: 2017 - Social History Usual Living Arrangement: Alone ADL: Independent (uses a walker and wheelchair, in process of getting a scooter) 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[employer] ,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 History of Recent Travel: No Home Medications - Allergies Allergies/Adverse Reactions: Allergies Allergy/AdvReac Type Severity Reaction Status Date / Time No Known Drug Allergies Allergy Verified 04/10/18 18:37 - Home Medications Home Medications: Ambulatory Orders Tamsulosin HCl [Flomax -] 0.4 mg PO DAILY 05/11/16 traZODone HCL [Desyrel -] 50 mg PO HS 05/11/16 Metoprolol Succinate [Toprol XL -] 25 mg PO DAILY tab.sr.24h 07/19/16 Amlodipine Besylate [Norvasc -] 5 mg PO DAILY tablet 10/29/16 Pantoprazole Sodium [Protonix] 40 mg PO DAILY 01/25/17 Furosemide [Lasix] 20 mg PO DAILY #0 mg 03/08/17 Pregabalin [Lyrica -] 150 mg PO BID 05/11/17 Ferrous Sulfate [Feosol] 325 mg PO BID ud 11/11/17 Ergocalciferol (Vitamin D2) [Drisdol] 1 tab PO WEEKLY 01/11/18 Lidocaine 5% Patch [Lidoderm -] 1 patch TP DAILY 01/11/18 Pramipexole Di-HCl [Mirapex] 0.5 mg PO DAILY 01/11/18 Albuterol 2.5/Ipratropium 0.5 [Duoneb -] 1 amp NEB RQID amp 03/02/18 Insulin (Levemir) [Levemir Vial] 16 units SQ AM units 03/02/18 Insulin Sliding Scale [Novolog Vial Sliding Scale -] 1 vial SQ TIDAC units 09/18 Polyethylene Glycol 3350 [Miralax 119 gm Btl -] 17 gm PO DAILY bottle 03/02/18 Sennosides [Senna -] 2 tab PO HS tablet 03/02/18 Zinc Sulfate [Orazinc -] 220 mg PO BID capsule 03/02/18 Aclidinium [place] [Tudorza Pressair] 400 mcg IH DAILY 04/10/18 Aa/Hydrolyzed Collagen, [place]y [Lps 15-30 Liquid] 30 ml PO BID 04/11/18 Acetaminophen 650 mg PO Q6H PRN 04/11/18 Ascorbic Acid [Vitamin C -] 500 mg PO BID 04/11/18 Atorvastatin Ca [Lipitor] 20 mg PO HS 04/11/18 Clopidogrel Bisulfate [Plavix -] 75 mg PO DAILY 04/11/18 Docusate Sodium [Colace -] 300 mg PO HS 04/11/18 Guaifenesin 400 mg PO Q8H PRN 04/11/18 Heparin - 5,000 unit SQ BID 04/11/18 Memantine HCl 5 mg PO BID 04/11/18 Methylnaltrexone [place] [Relistor] 12 mg SQ DAILY 04/11/18 oxyCODONE HCL [Roxicodone -] 10 mg PO Q6H PRN MDD 4 04/11/18 Family Disease History - Family Disease History Family Disease History: Diabetes: Mother (htn), CA: Father (htn, prostate CA), Other: Father, Mother Physical Exam Vital Signs: Vital Signs Temperature 98.2 F 04/11/18 16:30 Pulse Rate 81 04/11/18 16:30 Respiratory Rate 18 04/11/18 18:00 Blood Pressure 109/44 04/11/18 16:30 O2 Sat by Pulse Oximetry (%) 96 04/11/18 18:00 Wound/Incision: Yes: Other (Granulating stump right foot. Grade 2. -cellulitis , -drainage,) Labs: CBC, BMP 04/11/18 06:30 04/11/18 06:30 Assessment/Plan grade 3 wound right wound vac today after betadine scrub to right stump. Will discuss FTSG vs Topical tissue for closure. HBO consult.
[2018-04-11] MEDS ORDERED: SENNOSIDES 8.6MG TABLET (FP) PO SCH (22:00)
[2018-04-11] MEDS ORDERED: traZODone HCL 50 MG TABLET (FP) PO SCH (22:00)
[2018-04-11] MEDS ORDERED: DOCUSATE SODIUM 100 MG CAPSULE (FP) PO SCH (22:00)
[2018-04-11] MEDS ORDERED: LIDOCAINE PATCH REMOVAL MC SCH (22:00)
[2018-04-11] MEDS ORDERED: ATORVASTATIN CA 20 MG TABLET (FP) PO SCH (22:00)
[2018-04-11] MEDS: ACETAMINOPHEN 325 MG TABLET (FP) PO PRN (22:16)
[2018-04-12] MEDS: INSULIN (LEVEMIR) 100 UNITS/ML UNITS SQ SCH (06:34)
[2018-04-12] MEDS: INSULIN SLIDING SCALE (NOVOLOG) 1 VIAL SQ SCH ×2 (06:35→12:10)
[2018-04-12 06:59] LABS: HEMATOCRIT 31.7 % (35.4-49); HEMOGLOBIN 9.8 GM/dL (11.7-16.9); MCH 21.7 pg (25.7-33.7); MCHC 30.8 g/dl (32.0-35.9); MEAN CELL VOLUME 70.4 fl (80-96); MEAN PLT VOLUME 9.3 fl (7.5-11.1); PLATELET COUNT 156 K/MM3 (134-434); RDW 19.5 % (11.9-15.9); WHITE BLOOD COUNT 5.6 K/mm3 (4.0-10.0)
[2018-04-12] MEDS: ALBUTEROL SO4 2.5/IPRATROPIUM 0.5 INH SOL 3 ML VIAL.NEB. NEB SCH ×3 (07:39→16:06)
[2018-04-12 07:59] LABS: ANION GAP 10 MMOL/L (8-16); BLOOD UREA NITROGEN 25 mg/dL (7-18); CALCIUM 8.1 mg/dL (8.5-10.1); CHLORIDE 102 mmol/L (98-107); CO2 27 mmol/L (21-32); CREATININE 1.7 mg/dL (0.7-1.3); GLUCOSE,RANDOM 270 mg/dL (74-106); POTASSIUM 5.1 mmol/L (3.5-5.1); SODIUM 139 mmol/L (136-145)
--- NOTE | 2018-04-12 09:00 | PN ---
Progress Note, Physician - Current Medication List Current Medications: Active Medications Acetaminophen (Tylenol -) 650 mg PO Q6H PRN PRN Reason: PAIN 1-5 OR FEVER Last Admin: 04/11/18 22:16 Dose: 650 mg Albuterol/Ipratropium (Duoneb -) 1 amp NEB RQID [facility] Last Admin: 04/12/18 07:39 Dose: 1 amp Amlodipine Besylate (Norvasc -) 5 mg PO DAILY [facility] Last Admin: 04/11/18 11:14 Dose: 5 mg Ascorbic Acid (Vitamin C -) 500 mg PO BID [facility] Last Admin: 04/11/18 22:12 Dose: 500 mg Atorvastatin Calcium (Lipitor -) 20 mg PO HS [facility] Last Admin: 04/11/18 22:12 Dose: 20 mg Clopidogrel Bisulfate (Plavix -) 75 mg PO DAILY [facility] Last Admin: 04/11/18 11:14 Dose: 75 mg Docusate Sodium (Colace -) 300 mg PO HS [facility] Last Admin: 04/11/18 22:12 Dose: 300 mg Ergocalciferol (Drisdol -) 50,000 unit PO Sa@1000 [facility] Ferrous Sulfate (Feosol -) 325 mg PO BID [facility] Last Admin: 04/11/18 22:12 Dose: 325 mg Furosemide (Lasix -) 20 mg PO DAILY [facility] Last Admin: 04/11/18 11:14 Dose: 20 mg Guaifenesin (Robitussin -) 20 ml PO Q8H PRN PRN Reason: COUGH/CHEST CONGESTION Insulin Aspart (Novolog Vial Sliding Scale -) 1 vial SQ TIDAC [facility]; Protocol Last Admin: 04/12/18 06:35 Dose: 6 units Insulin Detemir (Levemir Vial) 16 units SQ AM [facility] Last Admin: 04/12/18 06:34 Dose: 16 unit Lidocaine (Lidoderm Patch -) 1 patch TP DAILY [facility] Last Admin: 04/11/18 11:12 Dose: 1 patch Memantine (Namenda -) 5 mg PO BID [facility] Last Admin: 04/11/18 22:55 Dose: 5 mg Methylnaltrexone [place] (Relistor -) 12 mg SQ DAILY [facility] Last Admin: 04/11/18 11:27 Dose: Not Given Metoprolol Succinate (Toprol Xl -) 25 mg PO DAILY [facility] Last Admin: 04/11/18 11:14 Dose: 25 mg Miscellaneous (Lidoderm Patch Removal) 1 each MC DAILY@2200 [facility] Last Admin: 04/11/18 22:13 Dose: Not Given Oxycodone HCl (Roxicodone -) 10 mg PO Q6H PRN PRN Reason: PAIN LEVEL 6-10 Last Admin: 04/11/18 22:15 Dose: 10 mg Pantoprazole Sodium (Protonix -) 40 mg PO DAILY [facility] Last Admin: 04/11/18 11:14 Dose: 40 mg Polyethylene Glycol (Miralax (For Daily Use) -) 17 gm PO DAILY [facility] Last Admin: 04/11/18 11:11 Dose: 17 gm Pramipexole Dihydrochloride (Mirapex -) 0.5 mg PO DAILY [facility] Last Admin: 04/11/18 11:16 Dose: 0.5 mg Pregabalin (Lyrica -) 150 mg PO BID [facility] Last Admin: 04/11/18 22:12 Dose: 150 mg Senna (Senna -) 2 tab PO [facility] Last Admin: 04/11/18 22:12 Dose: 2 tab Tamsulosin HCl (Flomax -) 0.4 mg PO DAILY@0830 [facility] Last Admin: 04/11/18 08:42 Dose: 0.4 mg Tiotropium [place] (Spiriva Respimat) 2 puff IH DAILY [facility] Last Admin: 04/11/18 11:15 Dose: 2 puff Trazodone HCl (Desyrel -) 50 mg PO HS [facility] Last Admin: 04/11/18 22:12 Dose: 50 mg Zinc Sulfate (Orazinc -) 220 mg PO BID [facility] Last Admin: 04/11/18 22:12 Dose: 220 mg - Objective Vital Signs: Vital Signs Temperature 98.1 F 04/12/18 06:32 Pulse Rate 76 04/12/18 06:32 Respiratory Rate 18 04/12/18 06:32 Blood Pressure 124/81 04/12/18 06:32 O2 Sat by Pulse Oximetry (%) 96 04/11/18 18:00 Labs: CBC, BMP 04/12/18 06:30 04/12/18 06:30 Problem List - Problems (1) Diabetic foot infection Code(s): E11.69 - TYPE 2 DIABETES MELLITUS WITH OTHER SPECIFIED COMPLICATION; L08.9 - LOCAL INFECTION OF THE SKIN AND SUBCUTANEOUS TISSUE, UNSP (2) History of transmetatarsal amputation of right foot Code(s): Z89.431 - ACQUIRED ABSENCE OF RIGHT FOOT (3) Wound, open, foot Code(s): S91.309A - UNSPECIFIED OPEN WOUND, UNSPECIFIED FOOT, INITIAL ENCOUNTER Qualifiers: Encounter type: initial encounter Laterality: right Qualified Code(s): S91.301A - Unspecified open wound, right foot, initial encounter (4) Diabetes mellitus type 2 with peripheral artery disease Code(s): E11.51 - TYPE 2 DIABETES W DIABETIC PERIPHERAL ANGIOPATH W/O GANGRENE (5) Arterial occlusion, lower extremity Code(s): I74.3 - EMBOLISM AND THROMBOSIS OF ARTERIES OF THE LOWER EXTREMITIES (6) Chronic osteomyelitis Code(s): M86.60 - OTHER CHRONIC OSTEOMYELITIS, UNSPECIFIED SITE (7) Renal insufficiency Code(s): N28.9 - DISORDER OF KIDNEY AND URETER, UNSPECIFIED
[2018-04-12] MEDS ORDERED: PT OWN MED DRAWER 7, Y5N ONE ×2 (10:05→14:18)
[2018-04-12] MEDS: PREGABALIN 75 MG CAPSULE PO SCH (10:10)
[2018-04-12] MEDS: LIDOCAINE 5% TOPICAL PATCH TP SCH (10:10)
[2018-04-12] MEDS: ASCORBIC ACID 500 MG TABLET (FP) PO SCH (10:11)
[2018-04-12] MEDS: metoPROLOL SUCCINATE 25 MG TAB.SR.24H (FP) PO SCH (10:11)
[2018-04-12] MEDS: amLODIPine BESYLATE 5 MG TABLET (FP) PO SCH (10:11)
[2018-04-12] MEDS: PANTOPRAZOLE 40 MG TABLET (FP) PO SCH (10:11)
[2018-04-12] MEDS: CLOPIDOGREL BISULFATE 75 MG TABLET (FP) PO SCH (10:11)
[2018-04-12] MEDS: TAMSULOSIN HCL 0.4 MG CAP.ER.24H (FP) PO SCH (10:11)
[2018-04-12] MEDS: PRAMIPEXOLE DIHYDROCHLORIDE 0.5 MG TABLET PO SCH (10:11)
[2018-04-12] MEDS: FUROSEMIDE 20 MG TABLET (FP) PO SCH (10:11)
[2018-04-12] MEDS: FERROUS SO4 325 MG TABLET (FP) PO SCH (10:11)
[2018-04-12] MEDS: ZINC SULFATE 220 MG CAPSULE (FP) PO SCH (10:11)
[2018-04-12] MEDS: Methylnaltrexone Bromide 12 MG/0.6 ML KIT SQ SCH ×2 (10:12→10:17)
[2018-04-12] MEDS: MEMANTINE HCL 5 MG TABLET (UD) PO SCH (10:12)
[2018-04-12] MEDS: POLYETHYLENE GLYCOL 3350 119 GM BTL PO SCH (10:12)
[2018-04-12] MEDS: ACETAMINOPHEN 325 MG TABLET (FP) PO PRN (10:20)
[2018-04-12] MEDS ORDERED: INSULIN (NOVOLOG) ASPART 100 UNITS/ML 10ML VIAL ONE ×2 (11:04→12:29)
[2018-04-12] MEDS ORDERED: Methylnaltrexone Bromide 12 MG/0.6 ML KIT SQ SCH (12:00)
[2018-04-12] MEDS: TIOTROPIUM BROMIDE 2.5 MCG (SPIRIVA) RESPIMAT INHALER IH SCH (12:10)
--- NOTE | 2018-04-12 12:28 | CONSULT ---
Consult - text type - Consultation Consultation Note: Renal Consult for JESÚS on CKD This is a 67 year old AA gentleman with hx of CKD stage 3, PVD, Hypertension, DM who presented from rehab with a leaking wound vac and noted to have a Cr of 1.8. Pt reports that his wound vac was leaking for 4 days. Denies any fever, chills, sob, cp, abd pain, N/V/D. Denies any NSAID use. Tolerating his oral diet well. PMhx: as above Allergies: NKDA Family Hx: NC Social hx: No T/A/D ROS: as per HPI, all other pertinent ros negative Vital Signs Temperature 98.1 F 04/12/18 06:32 Pulse Rate 76 04/12/18 06:32 Respiratory Rate 18 04/12/18 06:32 Blood Pressure 124/81 04/12/18 06:32 O2 Sat by Pulse Oximetry (%) 96 04/11/18 18:00 Intake & Output 04/09/18 04/10/18 04/11/18 04/12/18 23:59 23:59 23:59 23:59 Intake Total 300 400 Output Total 600 300 Balance -300 100 Weight 83.092 kg NAD awake and alert RRR, No M/R CTA, no rales or wheeze soft NT/ND no LE edmea, right foot TMA in dressing CBC, BMP 04/12/18 06:30 04/12/18 06:30 Current Medications Acetaminophen (Tylenol -) 650 mg PO Q6H PRN PRN Reason: PAIN 1-5 OR FEVER Last Admin: 04/12/18 10:20 Dose: 650 mg Albuterol/Ipratropium (Duoneb -) 1 amp NEB RQID [facility] Last Admin: 04/12/18 11:30 Dose: 1 amp Amlodipine Besylate (Norvasc -) 5 mg PO DAILY [facility] Last Admin: 04/12/18 10:11 Dose: 5 mg Ascorbic Acid (Vitamin C -) 500 mg PO BID [facility] Last Admin: 04/12/18 10:11 Dose: 500 mg Atorvastatin Calcium (Lipitor -) 20 mg PO HS [facility] Last Admin: 04/11/18 22:12 Dose: 20 mg Clopidogrel Bisulfate (Plavix -) 75 mg PO DAILY [facility] Last Admin: 04/12/18 10:11 Dose: 75 mg Docusate Sodium (Colace -) 300 mg PO HS [facility] Last Admin: 04/11/18 22:12 Dose: 300 mg Ergocalciferol (Drisdol -) 50,000 unit PO Sa@1000 [facility] Ferrous Sulfate (Feosol -) 325 mg PO BID [facility] Last Admin: 04/12/18 10:11 Dose: 325 mg Furosemide (Lasix -) 20 mg PO DAILY [facility] Last Admin: 04/12/18 10:11 Dose: 20 mg Guaifenesin (Robitussin -) 20 ml PO Q8H PRN PRN Reason: COUGH/CHEST CONGESTION Insulin Aspart (Novolog Vial Sliding Scale -) 1 vial SQ TIDAC [facility]; Protocol Last Admin: 04/12/18 12:10 Dose: 4 units Insulin Detemir (Levemir Vial) 16 units SQ AM [facility] Last Admin: 04/12/18 06:34 Dose: 16 unit Lidocaine (Lidoderm Patch -) 1 patch TP DAILY [facility] Last Admin: 04/12/18 10:10 Dose: 1 patch Memantine (Namenda -) 5 mg PO BID [facility] Last Admin: 04/12/18 10:12 Dose: 5 mg Methylnaltrexone [place] (Relistor -) 6 mg SQ Q2D [facility] Metoprolol Succinate (Toprol Xl -) 25 mg PO DAILY [facility] Last Admin: 04/12/18 10:11 Dose: 25 mg Miscellaneous (Lidoderm Patch Removal) 1 each MC DAILY@2200 [facility] Last Admin: 04/11/18 22:13 Dose: Not Given Oxycodone HCl (Roxicodone -) 10 mg PO Q6H PRN PRN Reason: PAIN LEVEL 6-10 Last Admin: 04/11/18 22:15 Dose: 10 mg Pantoprazole Sodium (Protonix -) 40 mg PO DAILY [facility] Last Admin: 04/12/18 10:11 Dose: 40 mg Polyethylene Glycol (Miralax (For Daily Use) -) 17 gm PO DAILY [facility] Last Admin: 04/12/18 10:12 Dose: Not Given Pramipexole Dihydrochloride (Mirapex -) 0.5 mg PO DAILY [facility] Last Admin: 04/12/18 10:11 Dose: 0.5 mg Pregabalin (Lyrica -) 150 mg PO BID [facility] Last Admin: 04/12/18 10:10 Dose: 150 mg Senna (Senna -) 2 tab PO HS [facility] Last Admin: 04/11/18 22:12 Dose: 2 tab Tamsulosin HCl (Flomax -) 0.4 mg PO DAILY@0830 [facility] Last Admin: 04/12/18 10:11 Dose: 0.4 mg Tiotropium [place] (Spiriva Respimat) 2 puff IH DAILY [facility] Last Admin: 04/12/18 12:10 Dose: 2 puff Trazodone HCl (Desyrel -) 50 mg PO HS [facility] Last Admin: 04/11/18 22:12 Dose: 50 mg Zinc Sulfate (Orazinc -) 220 mg PO BID [facility] Last Admin: 04/12/18 10:11 Dose: 220 mg 67 year old AA gentleman with hx of CKD stage 3, PVD, Hypertension, DM who presented from rehab with a leaking wound vac and noted to have a Cr of 1.8. #JESÚS on CKD #LE wound #Hypertension #DM #BPH Renal function slightly worse then baseline likely due to mild volume depletion in setting of Le wound encouraged increased oral intake of fluids no signs of obstruction on physical examination medication list reviewed, Relistor dose changed to 6mg Q48 (adjusted for renal function) no contraindication to discharge will need outpatient monitoring of renal function continue metoprolol and amlodpine, would benfit from [facility]/ARB to be added in the future continue flomax Thank you Deven Layton DO
--- NOTE | 2018-04-12 14:37 | DS ---
Physical Examination Vital Signs: Vital Signs Temperature 98.1 F 04/12/18 06:32 Pulse Rate 76 04/12/18 06:32 Respiratory Rate 18 04/12/18 06:32 Blood Pressure 124/81 04/12/18 06:32 O2 Sat by Pulse Oximetry (%) 96 04/11/18 18:00 Constitutional: Yes: No Distress Eyes: Yes: WNL HENT: Yes: WNL Neck: Yes: WNL Cardiovascular: Yes: WNL Respiratory: Yes: WNL Gastrointestinal: Yes: WNL Renal/: Yes: WNL Musculoskeletal: Yes: Muscle Weakness Extremities: Yes: Amputation, Deformity Edema: LLE: Trace, RLE: Trace Peripheral Pulses WNL: Yes Integumentary: Yes: Pressure Ulcer, Other Wound/Incision: Yes: Dressing Dry and Intact (TRIMMER MACHINE AMPUTATION IGHT FOOT CLEAN) ...Motor Strength: RLE Psychiatric: Yes: WNL Labs: CBC, BMP 04/12/18 06:30 04/12/18 06:30 Discharge Summary Reason For Visit: TYPE 2 DISBETES MELLITUS WITH PERPHERAL ARTERY DIS Current Active Problems Diabetic foot infection (Acute) History of transmetatarsal amputation of right foot (Acute) Wound, open, foot (Acute) Diabetes mellitus type 2 with peripheral artery disease (Chronic) Procedures: Principal: LABS/CX Hospital Course: ADMITTED FOR FOUL SMELLING WOUND TO RIGHT FOOT AMPUTATION SITE, WORKED UP AND SEEN BY [facility] SX AND PODIATRY NO ABX NEEDED. PATIENT WILL NEED HYPERBARIC THERAPY AND WOUND CARE, RETURN IN 2 WEEKS FOR SKIN GRAFT WITH DR ARANA Condition: Fair - Instructions Diet, Activity, Other Instructions: ADA LOW FAT/NA SCHEDULE WITH DR ARANA FOR RIGHT FOOT AMPUTATION SKIN GRAFT Referrals: Skinny Vincent MD [Primary Care Provider] - Disposition: [facility]IOR [facility]ARE FACILITY - Home Medications Comprehensive Discharge Medication List: Ambulatory Orders Tamsulosin HCl [Flomax -] 0.4 mg PO DAILY 05/11/16 traZODone HCL [Desyrel -] 50 mg PO HS 05/11/16 Metoprolol Succinate [Toprol XL -] 25 mg PO DAILY tab.sr.24h 07/19/16 Amlodipine Besylate [Norvasc -] 5 mg PO DAILY tablet 10/29/16 Pantoprazole Sodium [Protonix] 40 mg PO DAILY 01/25/17 Furosemide [Lasix] 20 mg PO DAILY #0 mg 03/08/17 Pregabalin [Lyrica -] 150 mg PO BID 05/11/17 Ferrous Sulfate [Feosol] 325 mg PO BID ud 11/11/17 Ergocalciferol (Vitamin D2) [Drisdol] 1 tab PO WEEKLY 01/11/18 Lidocaine 5% Patch [Lidoderm -] 1 patch TP DAILY 01/11/18 Pramipexole Di-HCl [Mirapex] 0.5 mg PO DAILY 01/11/18 Albuterol 2.5/Ipratropium 0.5 [Duoneb -] 1 amp NEB RQID amp 03/02/18 Insulin (Levemir) [Levemir Vial] 16 units SQ AM units 03/02/18 Insulin Sliding Scale [Novolog Vial Sliding Scale -] 1 vial SQ TIDAC units 09/18 Polyethylene Glycol 3350 [Miralax 119 gm Btl -] 17 gm PO DAILY bottle 03/02/18 Sennosides [Senna -] 2 tab PO HS tablet 03/02/18 Zinc Sulfate [Orazinc -] 220 mg PO BID capsule 03/02/18 Aclidinium [place] [Tudorza Pressair] 400 mcg IH DAILY 04/10/18 Aa/Hydrolyzed Collagen, Whey [Lps 15-30 Liquid] 30 ml PO BID 04/11/18 Acetaminophen 650 mg PO Q6H PRN 04/11/18 Ascorbic Acid [Vitamin C -] 500 mg PO BID 04/11/18 Atorvastatin Ca [Lipitor] 20 mg PO HS 04/11/18 Clopidogrel Bisulfate [Plavix -] 75 mg PO DAILY 04/11/18 Docusate Sodium [Colace -] 300 mg PO HS 04/11/18 Guaifenesin 400 mg PO Q8H PRN 04/11/18 Heparin - 5,000 unit SQ BID 04/11/18 Memantine HCl 5 mg PO BID 04/11/18 Methylnaltrexone [place] [Relistor -] 12 mg SQ DAILY 04/11/18 oxyCODONE HCL [Roxicodone -] 10 mg PO Q6H PRN MDD 4 04/11/18 Lidocaine 5% Patch [Lidoderm -] 1 patch TP DAILY patch 04/12/18
[2018-04-12 16:48] VITALS: BP 107/53; PULSE 79; TEMP 97.7
[2018-04-15] MEDS ORDERED: ERGOCALCIFEROL (VITAMIN D2) 50,000 UNIT CAPSULE (FP) PO SCH (10:00)
== END 2018-04-12 18:20 ==
LOC: JER 17:30 → JERBED 21:39 → J8W 04-11 01:27
PROVIDERS: ADMIT Internal Medicine; ATTEND Family Medicine
PROC: 3E03329 Introduction of Other Anti-infective into Peripheral Vein, Percutaneous Approach (ICD-10-PCS; principal; 2018-04-10)
PROC: 3E0F7GC Introduction of Other Therapeutic Substance into Respiratory Tract, Via Natural or Artificial Opening (ICD-10-PCS; 2018-04-10)
DX: T81.31XA Disruption of external operation (surgical) wound, not elsewhere classified, initial encounter (principal); S91.301A Unspecified open wound, right foot, initial encounter; Y83.8 Other surgical procedures as the cause of abnormal reaction of the patient, or of later complication, without mention of misadventure at the time of the procedure; Y92.89 Other specified places as the place of occurrence of the external cause; E11.22 Type 2 diabetes mellitus with diabetic chronic kidney disease; I12.9 Hypertensive chronic kidney disease with stage 1 through stage 4 chronic kidney disease, or unspecified chronic kidney disease; N18.9 Chronic kidney disease, unspecified; N17.9 Acute kidney failure, unspecified; Z79.4 Long term (current) use of insulin; E11.51 Type 2 diabetes mellitus with diabetic peripheral angiopathy without gangrene; G20 Parkinson's disease; M86.60 Other chronic osteomyelitis, unspecified site; D64.9 Anemia, unspecified; I25.10 Atherosclerotic heart disease of native coronary artery without angina pectoris; I69.354 Hemiplegia and hemiparesis following cerebral infarction affecting left non-dominant side; E78.5 Hyperlipidemia, unspecified; Z89.431 Acquired absence of right foot; Z89.422 Acquired absence of other left toe(s); E87.6 Hypokalemia; J45.909 Unspecified asthma, uncomplicated; J44.9 Chronic obstructive pulmonary disease, unspecified; I74.3 Embolism and thrombosis of arteries of the lower extremities
CPT/HCPCS: 36415; 71045-TC-FY; 73590-TC-RT-FY; 80048; 80053; 82962; 83735; 84100; 85025; 85027; 87070; 87186; 87205; 93005; 93010; 94640; 96365; 99283-25; G0378; J7620

== ENCOUNTER 2018-05-26 19:37 | Emergency (ER) | payer OTHER, BC ==
--- NOTE | 2018-05-26 19:56 | PDOC ---
History of Present Illness - General History Source: Patient Exam Limitations: No Limitations - History of Present Illness Initial Comments: 05/26/18 20:46 The patient is a 67-year-old male with past medical history significant for DM with PVD who is s/p transmet amputation right foot on 02/24/18 and discharged to Sub-acute rehab, COPD (3L O2 @home), pulmonary fibrosis, CAD, CVA (left sided weakness), HTN, HLD presents to the emergency department with an injury to the R. foot. The patient states he was at a friends earlier today, during the event, the patient went to the bathroom. The patient states when he was trying to pull his pants up, he put pressure on the tip of the graft. The patient states a friend of his noticed that he was bleeding from the side, denies any excessive pain to the site. The patient reports he went back to the rehab facility, at where his bandage was changed. The patient reports the bleeding subsided with the new wrapping. The patient was sent to the rehab for further evaluation. The patient reports he is scheduled to be discharged from the Sub-acute rehab on Tuesday. Allergies: NKDA Social history: Former smoker (quit 2016), no past or present use of alcohol or recreational drugs. Surgical history: L. second toe amputation, appendectomy, cholecystectomy, tonsillectomy, B/l leg stents, R. carotid endarterectomy. PCP: Dr. Giron Vascular Surgeon: Dr. Sanders, states she has an appointment with the doctor on Tuesday. <Latoya Mederos - Last Filed: 05/26/18 20:54> <Yolande Mcdermott - Last Filed: 05/26/18 21:44> - General Stated Complaint: R FOOT INJURY Time Seen by Provider: 05/26/18 19:55 Past History <Latoya Mederos - Last Filed: 05/26/18 20:54> - Past Medical History Anemia: Yes Asthma: Yes Cancer: No Cardiac Disorders: Yes (CAD) CVA: Yes (x5; residual L sided weakness) COPD: Yes (3L O2 NC AT HOME) CHF: No DVT: No Dementia: No Diabetes: Yes (IDDM) GI Disorders: No Disorders: Yes (kidney stones; JESÚS) HTN: Yes Hypercholesterolemia: Yes Liver Disease: No Seizures: No Thyroid Disease: No - Surgical History Abdominal Surgery: Yes (Hernia repair) Appendectomy: Yes Cardiac Surgery: No Cholecystectomy: Yes Lung Surgery: No Neurologic Surgery: No Orthopedic Surgery: (Left 2nd toe amputation) - Immunization History Immunization Up to Date: Yes - Suicide/Smoking/Psychosocial Hx Smoking Status: No Smoking History: Former smoker Have you smoked in the past 12 months: No Number of Cigarettes Smoked Daily: 3 If you are a former smoker, when did you quit?: 2017 'Breaking Loose' booklet given: 08/07/17 Hx Alcohol Use: No Drug/Substance Use Hx: No Substance Use Type: None Hx Substance Use Treatment: No <Yolande Mcdermott - Last Filed: 05/26/18 21:44> - Past Medical History Allergies/Adverse Reactions: Allergies Allergy/AdvReac Type Severity Reaction Status Date / Time No Known Drug Allergies Allergy Verified 05/26/18 20:15 Home Medications: Ambulatory Orders Tamsulosin HCl [Flomax -] 0.4 mg PO DAILY 05/11/16 traZODone HCL [Desyrel -] 50 mg PO HS 05/11/16 Metoprolol Succinate [Toprol XL -] 25 mg PO DAILY tab.sr.24h 07/19/16 Amlodipine Besylate [Norvasc -] 5 mg PO DAILY tablet 10/29/16 Pantoprazole Sodium [Protonix] 40 mg PO DAILY 01/25/17 Furosemide [Lasix] 20 mg PO DAILY #0 mg 03/08/17 Pregabalin [Lyrica -] 150 mg PO BID 05/11/17 Ferrous Sulfate [Feosol] 325 mg PO BID ud 11/11/17 Ergocalciferol (Vitamin D2) [Drisdol] 1 tab PO WEEKLY 01/11/18 Lidocaine 5% Patch [Lidoderm -] 1 patch TP DAILY 01/11/18 Pramipexole Di-HCl [Mirapex] 0.5 mg PO DAILY 01/11/18 Albuterol 2.5/Ipratropium 0.5 [Duoneb -] 1 amp NEB RQID amp 03/02/18 Insulin (Levemir) [Levemir Vial] 16 units SQ AM units 03/02/18 Insulin Sliding Scale [Novolog Vial Sliding Scale -] 1 vial SQ TIDAC units 09/18 Polyethylene Glycol 3350 [Miralax 119 gm Btl -] 17 gm PO DAILY bottle 03/02/18 Sennosides [Senna -] 2 tab PO HS tablet 03/02/18 Zinc Sulfate [Orazinc -] 220 mg PO BID capsule 03/02/18 Aclidinium [place] [Tudorza Pressair] 400 mcg IH DAILY 04/10/18 Aa/Hydrolyzed Collagen, Whey [Lps 15-30 Liquid] 30 ml PO BID 04/11/18 Acetaminophen 650 mg PO Q6H PRN 04/11/18 Ascorbic Acid [Vitamin C -] 500 mg PO BID 04/11/18 Atorvastatin [place] [Lipitor] 20 mg PO HS 04/11/18 Clopidogrel Bisulfate [Plavix -] 75 mg PO DAILY 04/11/18 Docusate Sodium [Colace -] 300 mg PO HS 04/11/18 Guaifenesin 400 mg PO Q8H PRN 04/11/18 Heparin - 5,000 unit SQ BID 04/11/18 Memantine HCl 5 mg PO BID 04/11/18 Methylnaltrexone [place] [Relistor -] 12 mg SQ DAILY 04/11/18 oxyCODONE HCL [Roxicodone -] 10 mg PO Q6H PRN MDD 4 04/11/18 Review of Systems - Review of Systems Able to Perform ROS?: Yes Comments:: 05/26/18 20:46 GENERAL/CONSTITUTIONAL: No fever or chills. No weakness. HEAD, EYES, EARS, NOSE AND THROAT: No change in vision. No ear pain or discharge. No sore throat. CARDIOVASCULAR: No chest pain or shortness of breath. RESPIRATORY: No cough, wheezing, or hemoptysis. GASTROINTESTINAL: No nausea, vomiting, diarrhea or constipation. GENITOURINARY: No dysuria, frequency, or change in urination. MUSCULOSKELETAL: (+) Bleeding from the R. foot wound, resolved at the ED. No joint or muscle swelling or pain. No neck or back pain. SKIN: No rash NEUROLOGIC: No headache, vertigo, loss of consciousness, or change in strength/ sensation. ENDOCRINE: No increased thirst. No abnormal weight change. HEMATOLOGIC/LYMPHATIC: No anemia, easy bleeding, or history of blood clots. ALLERGIC/IMMUNOLOGIC: No hives or skin allergy. <Latoya Mederos - Last Filed: 05/26/18 20:54> *Physical Exam - Vital Signs Last Vital Signs Temp Pulse Resp BP Pulse Ox 98.5 F 85 18 112/65 95 05/26/18 19:54 05/26/18 19:54 05/26/18 19:54 05/26/18 19:54 05/26/18 19:54 - Physical Exam Comments: 05/26/18 20:49 GENERAL: Awake, alert, and fully oriented, in no acute distress HEAD: No signs of trauma EYES: PERRLA, EOMI, sclera anicteric, conjunctiva clear ENT: Auricles normal inspection, hearing grossly normal, nares patent, oropharynx clear without exudates. Moist mucosa NECK: Normal ROM, supple, no lymphadenopathy, JVD, or masses LUNGS: Breath sounds equal, clear to auscultation bilaterally. No wheezes, and no crackles HEART: Regular rate and rhythm, normal S1 and S2, no murmurs, rubs or gallops ABDOMEN: Soft, nontender, normoactive bowel sounds. No guarding, no rebound. No masses EXTREMITIES: (+) R. foot TMA with granulation tissue on the frontal aspect of the foot, entire foot was warm to touch, ankle was warm to touch, healing wound to the anterior aspect of the ankle and cornejo, good pulses, nontender. No swelling to the legs. NEUROLOGICAL: Cranial nerves II through XII grossly intact. Normal speech, normal gait SKIN: Warm, Dry, normal turgor, no rashes or lesions noted. <Latoya Mederos - Last Filed: 05/26/18 20:54> Medical Decision Making - Medical Decision Making 05/26/18 20:[address] Sanders. 05/26/18 20:[address] Sanders <Latoya Mederos - Last Filed: 05/26/18 20:54> - Medical Decision Making 05/26/18 21:[address] Sanders, and he agrees pt is stable for d/c. He sees no benefit to getting any blood tests at this time. <Yolande Mcdermott - Last Filed: 05/26/18 21:44> *DC/Admit/Observation/Transfer - Attestations Scribe Attestion: 05/26/18 20:54 Documentation prepared by Latoya Mederos, acting as electromedical equipment repairer for Yolande Mcdermott MD. <Latoya Mederos - Last Filed: 05/26/18 20:54> - Discharge Dispostion Decision to Admit order: No <Yolande Mcdermott - Last Filed: 05/26/18 21:44> Diagnosis at time of Disposition: Wound dehiscence - Discharge Dispostion Disposition: [facility] Condition at time of disposition: Stable - Referrals Referrals: Trever Cavazos MD [Primary Care Provider] - - Patient Instructions Printed Discharge Instructions: Eating a Diet Rich in Fruits and Vegetables - Post Discharge Activity
[2018-05-26 20:04] VITALS: BP 112/65; PULSE 85; TEMP 98.5; BMI 23.1
== END 2018-05-26 22:22 ==
LOC: JER 19:37
DX: T81.30XA Disruption of wound, unspecified, initial encounter (principal); Z89.431 Acquired absence of right foot; Z89.422 Acquired absence of other left toe(s); I25.10 Atherosclerotic heart disease of native coronary artery without angina pectoris; I10 Essential (primary) hypertension; E11.51 Type 2 diabetes mellitus with diabetic peripheral angiopathy without gangrene; Z79.4 Long term (current) use of insulin; J44.9 Chronic obstructive pulmonary disease, unspecified; Z99.81 Dependence on supplemental oxygen; E78.5 Hyperlipidemia, unspecified; J84.10 Pulmonary fibrosis, unspecified; I69.854 Hemiplegia and hemiparesis following other cerebrovascular disease affecting left non-dominant side
CPT/HCPCS: 99282-25

== ENCOUNTER 2018-06-05 17:51 | Inpatient (IN) | payer OTHER, BC ==
[2018-06-05] MEDS ORDERED: ACETAMINOPHEN 500 MG TABLET (FP) PO ONE (19:01)
[2018-06-05] MEDS ORDERED: ACETAMINOPHEN 325 MG TABLET (FP) ONE (19:36)
[2018-06-05 19:37] LABS: BASO % 1.2 % (0-2.0); EOS % 2.2 % (0-4.5); HEMATOCRIT 36.4 % (35.4-49); HEMOGLOBIN 11.6 GM/dL (11.7-16.9); LYMPH % 13.4 % (8-40); MCHC 31.8 g/dl (32.0-35.9); MEAN CELL VOLUME 72.4 fl (80-96); MEAN PLT VOLUME 9.5 fl (7.5-11.1); MONO % 9.6 % (3.8-10.2); NEUT % 73.6 % (42.8-82.8); PLATELET COUNT 173 K/MM3 (134-434); RBC 5.02 M/mm3 (4.00-5.60); RDW 17.7 % (11.9-15.9); WHITE BLOOD COUNT 8.2 K/mm3 (4.0-10.0)
[2018-06-05 19:54] LABS: INR 1.26 (0.83-1.09); PROTHROMBIN TIME (PATIENT) 14.9 SEC (9.7-13.0)
[2018-06-05 19:56] LABS: ACTIVATED PTT 27.5 SECONDS (25.2-36.5)
[2018-06-05 20:02] LABS: ALBUMIN 3.2 g/dl (3.4-5.0); ALK PHOS 153 U/L (45-117); ANION GAP 11 MMOL/L (8-16); BILIRUBIN,TOTAL 0.2 mg/dL (0.2-1); BLOOD UREA NITROGEN 48 mg/dL (7-18); CHLORIDE 102 mmol/L (98-107); CO2 21 mmol/L (21-32); CREATININE 3.4 mg/dL (0.55-1.3); GLUCOSE,RANDOM 186 mg/dL (74-106); POTASSIUM 4.6 mmol/L (3.5-5.1); SGOT/AST 7 U/L (15-37); SGPT/ALT 14 U/L (13-61); SODIUM 134 mmol/L (136-145); TOT PROT 7.8 g/dl (6.4-8.2)
[2018-06-05] MEDS ORDERED: SODIUM CHLORIDE 1,000 ML IV STA (20:15)
--- NOTE | 2018-06-05 20:16 | PDOC ---
History of Present Illness - General Chief Complaint: Cold Symptoms Stated Complaint: SICK Time Seen by Provider: 06/05/18 18:01 History Source: Patient, Friend (Son present for initial interview.) Exam Limitations: No Limitations - History of Present Illness Initial Comments: 67 y/o male presenting to [facility] ER via ambulance from home complaining of oral fever to 101.5. Pt denies any additional acute chief complaint. Pt has a h/o poorly healing diabetic foot wounds with secondary sepsis. He is s/p open transmetatarsal amputation right foot on [address] Sanders. He was discharged from [facility] on 31 May 2018 to home, where he lives with his girlfriend. Son is present at bedside. Reports he found his father to be warm to the touch and globally weak this afternoon. Noted he urinated on himself at some point during the day. Daughter obtained oral temp and found it to be elevated. Was evaluated by Dr. Sanders last Tuesday (31 May 2018). Pt reports it was a normal exam. PCP: Skinny Vincent Social Hx: - Former smoker - Denies EtOH since becoming sick this year - Denies street drugs Medical Hx: - HTN - DM - CVA - CKD - Parkinson's - Osteomyelitis Surgical Hx: - Open transmetatarsal amputation right foot (01/2018) - Left 2nd Toe Amputation - Appendectomy - Cholecystectomy Past History - Past Medical History Allergies/Adverse Reactions: Allergies Allergy/AdvReac Type Severity Reaction Status Date / Time No Known Drug Allergies Allergy Verified 05/26/18 20:15 Home Medications: Ambulatory Orders Tamsulosin HCl [Flomax -] 0.4 mg PO DAILY 05/11/16 traZODone HCL [Desyrel -] 50 mg PO HS 05/11/16 Metoprolol Succinate [Toprol XL -] 25 mg PO DAILY tab.sr.24h 07/19/16 Amlodipine Besylate [Norvasc -] 5 mg PO DAILY tablet 10/29/16 Pantoprazole Sodium [Protonix] 40 mg PO DAILY 01/25/17 Furosemide [Lasix] 20 mg PO DAILY #0 mg 03/08/17 Pregabalin [Lyrica -] 150 mg PO BID 05/11/17 Ferrous Sulfate [Feosol] 325 mg PO BID ud 11/11/17 Ergocalciferol (Vitamin D2) [Drisdol] 1 tab PO WEEKLY 01/11/18 Lidocaine 5% Patch [Lidoderm -] 1 patch TP DAILY 01/11/18 Pramipexole Di-HCl [Mirapex] 0.5 mg PO DAILY 01/11/18 Albuterol 2.5/Ipratropium 0.5 [Duoneb -] 1 amp NEB RQID amp 03/02/18 Insulin (Levemir) [Levemir Vial] 16 units SQ AM units 03/02/18 Insulin Sliding Scale [Novolog Vial Sliding Scale -] 1 vial SQ TIDAC units 09/18 Polyethylene Glycol 3350 [Miralax 119 gm Btl -] 17 gm PO DAILY bottle 03/02/18 Sennosides [Senna -] 2 tab PO HS tablet 03/02/18 Zinc Sulfate [Orazinc -] 220 mg PO BID capsule 03/02/18 Aclidinium [place] [Tudorza Pressair] 400 mcg IH DAILY 04/10/18 Aa/Hydrolyzed Collagen, Whey [Lps 15-30 Liquid] 30 ml PO BID 04/11/18 Acetaminophen 650 mg PO Q6H PRN 04/11/18 Ascorbic Acid [Vitamin C -] 500 mg PO BID 04/11/18 Atorvastatin Ca [Lipitor] 20 mg PO HS 04/11/18 Clopidogrel Bisulfate [Plavix -] 75 mg PO DAILY 04/11/18 Docusate Sodium [Colace -] 300 mg PO HS 04/11/18 Guaifenesin 400 mg PO Q8H PRN 04/11/18 Heparin - 5,000 unit SQ BID 04/11/18 Memantine HCl 5 mg PO BID 04/11/18 Methylnaltrexone [place] [Relistor -] 12 mg SQ DAILY 04/11/18 oxyCODONE HCL [Roxicodone -] 10 mg PO Q6H PRN MDD 4 04/11/18 Anemia: Yes Asthma: Yes Cancer: No Cardiac Disorders: Yes (CAD) CVA: Yes (x5; residual L sided weakness) COPD: Yes (3L O2 NC AT HOME) CHF: No DVT: No Dementia: No Diabetes: Yes (IDDM) GI Disorders: No Disorders: Yes (kidney stones; JESÚS) HTN: Yes Hypercholesterolemia: Yes Liver Disease: No Seizures: No Thyroid Disease: No - Surgical History Abdominal Surgery: Yes (Hernia repair) Appendectomy: Yes Cardiac Surgery: No Cholecystectomy: Yes Lung Surgery: No Neurologic Surgery: No Orthopedic Surgery: (Left 2nd toe amputation) - Immunization History Immunization Up to Date: Yes - Suicide/Smoking/Psychosocial Hx Smoking Status: No Smoking History: Unknown if ever smoked Have you smoked in the past 12 months: No Number of Cigarettes Smoked Daily: 3 If you are a former smoker, when did you quit?: 2017 'Breaking Loose' booklet given: 08/07/17 Hx Alcohol Use: No Drug/Substance Use Hx: No Substance Use Type: None Hx Substance Use Treatment: No Review of Systems - Review of Systems Able to Perform ROS?: Yes Comments:: In addition to that documented in the HPI above, the additional ROS was obtained : Constitutional: Endorses fevers. Denies chills or diaphoresis Eyes: Denies acute vision changes ENMT: Denies sore throat. Endorses chronic and unchanged cough productive of light brown sputum (no color change) CV: Denies chest pain Resp: Denies SOB GI: Denies vomiting or diarrhea : Denies painful urination, frequency, urgency, or hematuria MSK: Denies recent trauma Skin: Denies new rashes Neuro: Denies new numbness or tingling or weakness Endocrine: Denies polyuria Heme: Denies bleeding disorders Is the patient limited Somali proficient: No *Physical Exam - Vital Signs Last Vital Signs Temp Pulse Resp BP Pulse Ox 101.5 F H 77 22 H 101/70 93 L 06/05/18 17:56 06/05/18 17:56 06/05/18 17:56 06/05/18 17:56 06/05/18 17:56 - Physical Exam Comments: Constitutional: Well-developed, well-nourished, obese male in no acute distress or obvious discomfort. Found semi-fowlers in hospital bed. Alert and oriented x4. Answered all questions appropriately and completely. Speech was non-labored , non-pressured. HEENT: Normocephalic. No obvious external signs of trauma. Hearing grossly normal. No nasal discharge. Moist mucosal membranes. Conjunctiva well appearing , not injected. Neck is supple, trachea is midline. Cardiovascular: Regular rate and regular rhythm. No murmur, rubs, clicks, or gallops. Peripheral pulses: Radial pulses full. Respiratory: Breathing unlabored. Equal chest rise and fall. Clear to auscultation bilaterally. No stridor, no wheezing, no rhonchi. Infrequent coughing during the interview. Gastrointestinal: abdomen is soft, non-tender, non-distended. Neuro: Alert and oriented. Moving all four extremities spontaneously. Intact sensation to all four extremities. Lower extremity proximal and distal strength 5/5, special forces warrant officer strength 5/5 - equal and symmetric. Skin: Warm and dry. Clean and dry bandages found on pts lower right extremity surgical site; taken down revealing single well appearing circular wound with granulation tissue in center; no obvious cellulitic lesions. Bandage found on left heel; bandage taken down revealing small well appearing wound; no obvious cellulitic lesions. Psych: Affect: appropriate. Mood: normal. ED Treatment Course - LABORATORY CBC & Chemistry Diagram: 06/05/18 19:25 06/05/18 19:25 - ADDITIONAL ORDERS Additional order review: Laboratory Results 06/05/18 06/05/18 19:25 19:25 PT with INR 14.90 H INR 1.26 H PTT (Actin FS) 27.5 Sodium 134 L Potassium 4.6 Chloride 102 Carbon Dioxide 21 Anion Gap 11 BUN 48 H Creatinine 3.4 H Creat Clearance w eGFR 18.16 Random Glucose 186 H Calcium 8.0 L Total Bilirubin 0.2 AST 7 L ALT 14 Alkaline Phosphatase 153 H Total Protein 7.8 Albumin 3.2 L 06/05/18 19:25 RBC 5.02 MCV 72.4 L MCHC 31.8 L RDW 17.7 H MPV 9.5 Neutrophils % 73.6 Lymphocytes % 13.4 D Monocytes % 9.6 Eosinophils % 2.2 Basophils % 1.2 - RADIOLOGY Radiology Studies Ordered: Category Date Time Status CHEST X-RAY PORTABLE* [RAD] Stat Radiology 06/05/18 18:39 Completed - Medications Given in the ED: ED Medications Discontinued Medications Generic Name Dose Route Start Last Admin Trade Name Freq PRN Reason Stop Dose Admin Acetaminophen 975 mg 06/05/18 19:01 06/05/18 19:42 Tylenol - PO 06/05/18 19:02 975 mg ONCE ONE Administration Medical Decision Making - Medical Decision Making *Reviewed vital signs, nursing notes, and prior visit documentation (if available). 67 y/o male complaining of fever without additional localizing symptoms. H/o poorly healing diabetic wounds s/p R foot amputation. Postoperative course complicated by septic infection requiring prolonged hospitalization. Febrile. Vitals unremarkable for tachycardia or hypotension. Unrevealing physical exam as described above. D/D includes but not limited to UTI, influenza, ACS, pneumonia, wound infection, osteomyelitis. Will obtain CBC, CMP, lactic acid, UA , Urine culture, CXR, EKG, Troponin, and rapid influenza. Ordered PO acetaminophen. CXR unremarkable for acute cardiopulmonary process. EKG sinus rhythm with a ventricular rate of 70 bpm. First degree AV block. Normal axis. No ST segment elevation or depression. No Hyperacute T-waves. Troponin not elevated. Low suspicion for ACS. Will not order repeat as pt denies chest pain. CBC unremarkable for anemia or leukocytosis. CMP revealed mild hyponatremia, not likely clinically significant, suspect secondary to dehydration. LFTs not elevated. BUN/Cr elevated from previous on 12 Apr 2018. Possible JESÚS versus progression of CKD. Added on urine electrolytes to UA. Lactic acid not elevated. Will cancel repeat order. Influenza A and B not detected. Low suspicion for influenza. 21:38 Urine obtained by straight cath using aseptic technique. PA provided standby. UA unremarkable for pyuria, leukocyte esterase, or nitrites. Low suspicion for UTI. Culture pending. FENa calculated at 0.6% suggestive for pre-renal azotemia. Ordered 1L NS IVFB for JESÚS. Ordered Vancomycin and Zosyn for broad spectrum coverage without obvious source of infection. 22:57 Microblog sent to [facility] Admitting with concern for fever of unknown etiology and JESÚS. 06/05/18 23:24 Telephone consult with RAUL Montiel. Agrees to admit pt to med/ surg on observation status for Dr. Naylor. No additional ordered requested. *DC/Admit/Observation/Transfer Diagnosis at time of Disposition: JESÚS (acute kidney injury) Fever Qualifiers: Fever type: unspecified Qualified Code(s): R50.9 - Fever, unspecified - Discharge Dispostion Condition at time of disposition: Stable Decision to Admit order: Yes - Referrals - Patient Instructions - Post Discharge Activity
--- NOTE | 2018-06-05 21:12 | PDOC ---
Attending Attestation - Resident Resident Name: Ridge Casarez - ED Attending Attestation I have performed the following: I have examined & evaluated the patient, The case was reviewed & discussed with the resident, I agree w/resident's findings & plan, Exceptions are as noted - HPI HPI: 06/05/18 21:06 The patient is a 67 year old male, with a significant past medical history of DM with PVD who is s/p transmet amputation right foot on 02/24/18 and discharged to Sub-acute rehab, COPD (3L O2 @home), pulmonary fibrosis, CAD, CVA (left sided weakness), HTN, HLD, who presents to the emergency department via ems from home for fever 101.5F. Family at bedside states the patient appeared tired and generally weak today. Pt himself states that he feels tired but denies any focal complaints. Denies subjective fevers/chills. The patient reports a mildly productive cough of brownish sputum for several months. The patient denies chest pain, shortness of breath, headache and dizziness. The patient denies chills, nausea, vomit, diarrhea and constipation. The patient denies dysuria, frequency, urgency and hematuria. Allergies: NKDA Social history: Former smoker (quit 2017), no past or present use of alcohol or recreational drugs. Surgical history: L. second toe amputation, appendectomy, cholecystectomy, tonsillectomy, B/l leg stents, R. carotid endarterectomy. PCP: Dr. Giron Vascular Surgeon: Dr. Sanders - Physicial Exam PE: 06/05/18 21:09 GENERAL: Awake, alert, and fully oriented, in no acute distress. HEAD: No signs of trauma EYES: PERRLA, EOMI, sclera anicteric, conjunctiva clear ENT: Auricles normal inspection, hearing grossly normal, nares patent, oropharynx clear without exudates. Moist mucosa NECK: Nontender, no stepoffs, Normal ROM, supple, no lymphadenopathy, JVD, or masses LUNGS: Breath sounds equal, clear to auscultation bilaterally. No wheezes, and no crackles HEART: Regular rate and rhythm, normal S1 and S2, no murmurs, rubs or gallops ABDOMEN: Soft, nontender, normoactive bowel sounds. No guarding, no rebound. No masses EXTREMITIES: + R foot amputation site with serosanguinous discharge + granulation tissue, no purulent drainage, no erythema, no induration/fluctuance/ crepitus NEUROLOGICAL: Cranial nerves II through XII intact. 5/5 strength and sensation in all extremities, Normal speech, normal gait, normal cerebellar function SKIN: Warm, Dry, normal turgor, no rashes or lesions noted. - Medical Decision Making 06/05/18 21:10 67 M with fever x 1 day. Pt with no focal infectious symptoms. Will evaluate for UTI/PNA. Also check for flu. Pt's amputation site does not appear infected. - labs, cultures - CXR, UA - Flu swab - IVF, tylenol - Abx
[2018-06-05] MEDS ORDERED: LIDOCAINE HCL 2% JELLY 10 ML CARTRIDGE UR ONE (21:19)
[2018-06-05 21:44] LABS: URINE APPEARANCE CLEAR; URINE BILIRUBIN NEGATIVE (<2.0 mg/dL); URINE COLOR AMBER; URINE GLUCOSE (UA) NEGATIVE (NEGATIVE); URINE KETONE NEGATIVE (NEGATIVE); URINE LEUK ESTERASE TRACE (NEGATIVE); URINE NITRITE NEGATIVE (NEGATIVE); URINE PROTEIN 1+ (NEGATIVE)
[2018-06-05 21:46] LABS: URINE HYALINE CAST 11 /lpf
[2018-06-05] MEDS ORDERED: VANCOMYCIN 1,000 MG in DEXTROSE 5%-WATER - 250 ML IVPB ONE (22:48)
[2018-06-05] MEDS ORDERED: PIPERACILLIN/TAZOB 2.25 GM 2.25 GM in DEXTROSE 5%-WATER - 50 ML IVPB ONE (22:49)
[2018-06-05] MEDS ORDERED: PIPERACILLIN/TAZOB 2.25 GM 2.25 GM/50 ML BAG IVPB ONE (23:18)
--- NOTE | 2018-06-06 00:27 | HP ---
CHIEF COMPLAINT: fever PCP: Carlton HISTORY OF PRESENT ILLNESS: This is a 67 year old male with a significant past medical history of HTN, HLD, COPD, DM with foot wounds s/p R transmet amputation who presented to the ED with fever today. Son also noticed urinary incontinence x 1 today and decreased alertness. Pt reports feeling ok, just tired. Denies any change in his chronic cough, denies abdominal pain, N/V/D, denies runny nose, sore throat, ear ache. Denies increased pain to bilat feet or change in discharge from wounds. ER course was notable for: (1) t 101.5 (2) Cr 3.4 Recent Travel: pt denies PAST MEDICAL HISTORY: COPD(3 L O2 at home) asthma pulmonary fibrosis sleep apnea DM CAD CVA(left sided weakness) hypertension hyperlipidemia gout renal insufficiency chronic foot wounds, followed by vasc surgery PAST SURGICAL HISTORY: L second toe amputation appendectomy cholecystectomy 2013 tonsillectomy ?B/L leg stent eye surgery due to fractured orbit 07/2016 R carotid endarterectomy 2012 L femoral artery angioplasty 2014, 2015 Social History: retired [email or web address] Smoking: Quit May 2016, smoked 5-7 cig/day Alcohol: Occ Drugs: pt denies Allergies No Known Drug Allergies Allergy (Verified 05/26/18 20:15) HOME MEDICATIONS: 3 Medication Instructions Recorded Tamsulosin HCl [Flomax -] 0.4 mg PO DAILY 05/11/16 traZODone HCL [Desyrel -] 50 mg PO HS 05/11/16 Metoprolol Succinate [Toprol XL -] 25 mg PO DAILY tab.sr.24h 07/19/16 Amlodipine Besylate [Norvasc -] 5 mg PO DAILY tablet 10/29/16 Pantoprazole Sodium [Protonix] 40 mg PO DAILY 01/25/17 Furosemide [Lasix] 20 mg PO DAILY #0 mg 03/08/17 Pregabalin [Lyrica -] 150 mg PO BID 05/11/17 Ferrous Sulfate [Feosol] 325 mg PO BID ud 11/11/17 Ergocalciferol (Vitamin D2) 1 tab PO WEEKLY 01/11/18 [Drisdol] Pramipexole Di-HCl [Mirapex] 0.5 mg PO DAILY 01/11/18 Albuterol 2.5/Ipratropium 0.5 1 amp NEB RQID amp 03/02/18 [Duoneb -] Insulin (Levemir) [Levemir Vial] 16 units SQ AM units 03/02/18 Polyethylene Glycol 3350 [Miralax 17 gm PO DAILY bottle 03/02/18 119 gm Btl -] Sennosides [Senna -] 2 tab PO HS tablet 03/02/18 Zinc Sulfate [Orazinc -] 220 mg PO BID capsule 03/02/18 Aclidinium [place] [Tudorza 400 mcg IH DAILY 04/10/18 Pressair] Acetaminophen 650 mg PO Q6H PRN 04/11/18 Ascorbic Acid [Vitamin C -] 500 mg PO BID 04/11/18 Atorvastatin Ca [Lipitor] 20 mg PO HS 04/11/18 Clopidogrel Bisulfate [Plavix -] 75 mg PO DAILY 04/11/18 Docusate Sodium [Colace -] 300 mg PO HS 04/11/18 Guaifenesin 400 mg PO Q8H PRN 04/11/18 Memantine HCl 5 mg PO BID 04/11/18 oxyCODONE HCL [Roxicodone -] 10 mg PO Q6H PRN MDD 4 04/11/18 REVIEW OF SYSTEMS CONSTITUTIONAL: fever, generalized weakness, malaise Absent: chills, diaphoresis, loss of appetite, weight change HEENT: Absent: rhinorrhea, nasal congestion, throat pain, throat swelling, difficulty swallowing, mouth swelling, ear pain, eye pain, visual changes CARDIOVASCULAR: Absent: chest pain, syncope, palpitations, irregular heart rate, lightheadedness , peripheral edema RESPIRATORY: Absent: cough, shortness of breath, dyspnea with exertion, orthopnea, wheezing, stridor, hemoptysis GASTROINTESTINAL: Absent: abdominal pain, abdominal distension, nausea, vomiting, diarrhea, constipation, melena, hematochezia GENITOURINARY: Absent: dysuria, frequency, urgency, hesitancy, hematuria, flank pain, genital pain MUSCULOSKELETAL: Absent: myalgia, arthralgia, joint swelling, back pain, neck pain SKIN: Absent: rash, itching, pallor HEMATOLOGIC/IMMUNOLOGIC: Absent: easy bleeding, easy bruising, lymphadenopathy, frequent infections ENDOCRINE: Absent: unexplained weight gain, unexplained weight loss, heat intolerance, cold intolerance NEUROLOGIC: Absent: headache, focal weakness or paresthesias, dizziness, unsteady gait, seizure, mental status changes, bladder or bowel incontinence PSYCHIATRIC: Absent: anxiety, depression, suicidal or homicidal ideation, hallucinations. PHYSICAL EXAMINATION Vital Signs - 24 hr 3 06/05/18 17:56 Temperature 101.5 F H Pulse Rate 77 Respiratory 22 H Rate Blood Pressure 101/70 O2 Sat by Pulse 93 L Oximetry (%) GENERAL: Awake, alert, and fully oriented, in no acute distress. HEAD: Normal with no signs of trauma. EYES: Pupils equal, round and reactive to light, extraocular movements intact, sclera anicteric, conjunctiva clear. No lid lag. EARS, NOSE, THROAT: Ears normal, nares patent, oropharynx clear without exudates. Moist mucous membranes. NECK: Normal range of motion, supple without lymphadenopathy, JVD, or masses. LUNGS: Breath sounds equal, clear to auscultation bilaterally. No wheezes, and no crackles. No accessory muscle use. HEART: Regular rate and rhythm, normal S1 and S2 without murmur, rub or gallop. ABDOMEN: Soft, nontender, not distended, normoactive bowel sounds, no guarding, no rebound, no masses. No hepatomegaly or splenomegaly. MUSCULOSKELETAL: Normal range of motion at all joints. No bony deformities or tenderness. No CVA tenderness. UPPER EXTREMITIES: 2+ pulses, warm, well-perfused. No cyanosis. No clubbing. No peripheral edema. LOWER EXTREMITIES: 2+ pulses, warm, well-perfused. No calf tenderness. No peripheral edema. NEUROLOGICAL: Cranial nerves II-XII intact. Normal speech. PSYCHIATRIC: Cooperative. Good eye contact. Appropriate mood and affect. SKIN: Warm, dry, normal turgor, no rashes or lesions noted, normal capillary refill. wound left foot, transmet stump 5.4cm x 8.0cm x 0.0cm. wound bed pink, granulation tissue. surrounding skin dark discoloration, no excessive warmth, no bogginess or edema. + serosanguinous discharge, no foul odor. wound right plantar aspect of foot, dry ulceration 0.4cm x 0.4cm x 0.1cm, no discharge Laboratory Results - last 24 hr 3 06/05/18 06/05/18 06/05/18 19:25 19:25 19:25 WBC 8.2 RBC 5.02 Hgb 11.6 L Hct 36.4 MCV 72.4 L MCH 23.0 L MCHC 31.8 L RDW 17.7 H Plt Count 173 MPV 9.5 Absolute Neuts (auto) 6.1 Neutrophils % 73.6 Lymphocytes % 13.4 D Monocytes % 9.6 Eosinophils % 2.2 Basophils % 1.2 Nucleated RBC % 0 PT with INR 14.90 H INR 1.26 H PTT (Actin FS) 27.5 Sodium 134 L Potassium 4.6 Chloride 102 Carbon Dioxide 21 Anion Gap 11 BUN 48 H Creatinine 3.4 H Creat Clearance w eGFR 18.16 Random Glucose 186 H Lactic Acid Calcium 8.0 L Total Bilirubin 0.2 AST 7 L ALT 14 Alkaline Phosphatase 153 H Troponin I < 0.02 Total Protein 7.8 Albumin 3.2 L Urine Color Urine Appearance Urine pH Ur Specific [place] Urine Protein Urine Glucose (UA) Urine Ketones Urine Blood Urine Nitrite Urine Bilirubin Urine Urobilinogen Ur Leukocyte Esterase Urine WBC (Auto) Urine RBC (Auto) Hyaline Casts Ur Random Sodium Urine Creatinine 3 06/05/18 06/05/18 06/05/18 19:25 21:31 21:31 WBC RBC Hgb Hct MCV MCH MCHC RDW Plt Count MPV Absolute Neuts (auto) Neutrophils % Lymphocytes % Monocytes % Eosinophils % Basophils % Nucleated RBC % PT with INR INR PTT (Actin FS) Sodium Potassium Chloride Carbon Dioxide Anion Gap BUN Creatinine Creat Clearance w eGFR Random Glucose Lactic Acid 1.8 Calcium Total Bilirubin AST ALT Alkaline Phosphatase Troponin I Total Protein Albumin Urine Color [place] Urine Appearance Clear Urine pH 5.0 Ur Specific [place] 1.018 Urine Protein 1+ H 66 H Urine Glucose (UA) Negative Urine Ketones Negative Urine Blood Negative Urine Nitrite Negative Urine Bilirubin Negative Urine Urobilinogen 2.0 Ur Leukocyte Esterase Trace Urine WBC (Auto) <1 Urine RBC (Auto) None Hyaline Casts 11 Ur Random Sodium 55 Urine Creatinine 228.0 H ECG sinus rhythm with 1st degree AV block vent rate 70, QTC 429 poor baseline leads I, aVL, III, unable to interpret otherwise normal ECG Radiology Reports Chest xray portable Impression No significant interval change or acute lung disease is present. Reported By: Marilyn Meng MD 06/05/[id number] ASSESSMENT/PLAN: 67yM with PMH DM with PVD, neuropathy and nephropathy, HTN, HLD, CVA, CAD, COPD (3LNC), asthma, pulmonary fibrosis, sleep apnea, gout, chronic foot wounds, osteomyelitis presented to the ED with fever. fever - unknown etiology, CXR clear, no change in chronic cough, U/a neg - monitor off antibiotics - podiatry consult for foot wounds JESÚS - Cr from 1.7 on 04/12/18 to 3.4 - renal consult - Trial gentle IV hydration x 1 liter (also received 1L bolus in ED) - hold lasix HTN/HLD/CAD - cont home meds: norvasc/lipitor PVD - cont plavix DM - cont home levemir and novolog sliding scale - bgm AC/HS COPD/Asthma - cont home meds: duoneb, guaifenesin prn, home tudorza changed to formulary spiriva DVT PPX - observation pt, anticipated LOS less than 48h, reassess if stay exceeds FEN - NS @75cc/hr - bmp in am - diabetic/low sodium diet as tolerated Dispo: Pt currently requires further observation. Visit type - Emergency Visit Emergency Visit: Yes ED Registration Date: 06/05/18 Care time: The patient presented to the Emergency Department on the above date and was hospitalized for further evaluation of their emergent condition. - New Patient This patient is new to me today: Yes Date on this admission: 06/05/18 - Critical Care Critical Care patient: No
[2018-06-06] MEDS ORDERED: SODIUM CHLORIDE 1,000 ML IV SCH (01:00)
[2018-06-06] MEDS ORDERED: ERGOCALCIFEROL (VITAMIN D2) 50,000 UNIT CAPSULE (FP) PO SCH (01:00)
[2018-06-06] MEDS: PRAMIPEXOLE DIHYDROCHLORIDE 0.5 MG TABLET PO SCH ×2 (02:40→22:30)
[2018-06-06] MEDS: INSULIN SLIDING SCALE (NOVOLOG) 1 VIAL SQ SCH ×5 (08:09→22:35)
[2018-06-06] MEDS ORDERED: ALBUTEROL SO4 2.5/IPRATROPIUM 0.5 INH SOL 3 ML VIAL.NEB. NEB ONE ×2 (08:10→20:57)
[2018-06-06] MEDS ORDERED: TAMSULOSIN HCL 0.4 MG CAP ONE (08:10)
[2018-06-06] MEDS ORDERED: INSULIN (LEVEMIR) 100 UNITS/ML UNITS SQ ONE (08:11)
[2018-06-06] MEDS ORDERED: INSULIN (NOVOLOG) ASPART 100 UNITS/ML 10ML VIAL ONE ×2 (08:11→17:01)
[2018-06-06] MEDS: INSULIN (LEVEMIR) 100 UNITS/ML UNITS SQ SCH (08:12)
[2018-06-06] MEDS: TAMSULOSIN HCL 0.4 MG CAP PO SCH (08:12)
[2018-06-06] MEDS: ALBUTEROL SO4 2.5/IPRATROPIUM 0.5 INH SOL 3 ML VIAL.NEB. NEB SCH ×4 (08:12→21:00)
[2018-06-06 08:16] LABS: BASO % 1.2 % (0-2.0); EOS % 4.4 % (0-4.5); HEMATOCRIT 36.3 % (35.4-49); LYMPH % 13.3 % (8-40); MCH 21.7 pg (25.7-33.7); MCHC 30.2 g/dl (32.0-35.9); MEAN CELL VOLUME 71.8 fl (80-96); MEAN PLT VOLUME 8.8 fl (7.5-11.1); MONO % 14.2 % (3.8-10.2); NEUT % 66.9 % (42.8-82.8); PLATELET COUNT 166 K/MM3 (134-434); RBC 5.06 M/mm3 (4.00-5.60); RDW 17.7 % (11.9-15.9); WHITE BLOOD COUNT 6.5 K/mm3 (4.0-10.0)
[2018-06-06 08:57] LABS: ANION GAP 7 MMOL/L (8-16); BLOOD UREA NITROGEN 45 mg/dL (7-18); CALCIUM 8.1 mg/dL (8.5-10.1); CHLORIDE 105 mmol/L (98-107); CO2 24 mmol/L (21-32); CREATININE 2.7 mg/dL (0.55-1.3); GLUCOSE,RANDOM 195 mg/dL (74-106); MAGNESIUM 1.9 mg/dL (1.8-2.4); PHOSPHOROUS 3.9 mg/dL (2.5-4.9); POTASSIUM 4.6 mmol/L (3.5-5.1); SODIUM 135 mmol/L (136-145)
[2018-06-06] MEDS: CLOPIDOGREL BISULFATE 75 MG TABLET (FP) PO SCH (09:10)
[2018-06-06] MEDS: ZINC SULFATE 220 MG CAPSULE (FP) PO SCH ×2 (09:10→22:30)
[2018-06-06] MEDS: PANTOPRAZOLE 40 MG TABLET (FP) PO SCH (09:10)
[2018-06-06] MEDS: amLODIPine BESYLATE 5 MG TABLET (FP) PO SCH (09:10)
[2018-06-06] MEDS: PREGABALIN 75 MG CAPSULE PO SCH ×3 (09:10→22:30)
[2018-06-06] MEDS: POLYETHYLENE GLYCOL 3350 119 GM BTL PO SCH (09:10)
[2018-06-06] MEDS: MEMANTINE HCL 5 MG TABLET (UD) PO SCH ×2 (09:10→22:30)
[2018-06-06] MEDS: FERROUS SO4 325 MG TABLET (FP) PO SCH ×2 (09:10→22:30)
[2018-06-06] MEDS: metoPROLOL SUCCINATE 25 MG TAB.SR.24H (FP) PO SCH (09:11)
[2018-06-06] MEDS: ASCORBIC ACID 500 MG TABLET (FP) PO SCH ×2 (09:11→22:30)
[2018-06-06] MEDS: TIOTROPIUM BROMIDE 2.5 MCG (SPIRIVA) RESPIMAT INHALER IH SCH (09:11)
[2018-06-06] MEDS ORDERED: FUROSEMIDE 20 MG TABLET (FP) PO SCH (10:00)
--- NOTE | 2018-06-06 11:46 | CONSULT ---
Consult - text type - Consultation Consultation Note: Renal Consult for JESÚS on CKD This is a 67 year old gentleman with hx of CKD stage 4 (baseline Cr 1.6), Hypertension, DM, COPD, PVD s/p recent amputation who presented with fevers. Pt reports that he was at home and when his family came to visit him they said he was not acting normally and checked his temp and he was febrile and he came to the ER. Has cough x 1 month. No Abd pain, N/V/D. Leg wound has some drainage but no pain. Reports that he was eating and drinking at home. PMhx: as above Allergies: NKDA Family Hx: NC Social Hx: No t/a/d ROS: as per HPI Home Medications Medication Instructions Recorded Tamsulosin HCl [Flomax -] 0.4 mg PO DAILY 05/11/16 traZODone HCL [Desyrel -] 50 mg PO HS 05/11/16 Metoprolol Succinate [Toprol XL -] 25 mg PO DAILY tab.sr.24h 07/19/16 Amlodipine Besylate [Norvasc -] 5 mg PO DAILY tablet 10/29/16 Pantoprazole Sodium [Protonix] 40 mg PO DAILY 01/25/17 Furosemide [Lasix] 20 mg PO DAILY #0 mg 03/08/17 Pregabalin [Lyrica -] 150 mg PO BID 05/11/17 Ferrous Sulfate [Feosol] 325 mg PO BID ud 11/11/17 Ergocalciferol (Vitamin D2) 1 tab PO WEEKLY 01/11/18 [Drisdol] Pramipexole Di-HCl [Mirapex] 0.5 mg PO DAILY 01/11/18 Albuterol 2.5/Ipratropium 0.5 1 amp NEB RQID amp 03/02/18 [Duoneb -] Polyethylene Glycol 3350 [Miralax 17 gm PO DAILY bottle 03/02/18 119 gm Btl -] Sennosides [Senna -] 2 tab PO HS tablet 03/02/18 Zinc Sulfate [Orazinc -] 220 mg PO BID capsule 03/02/18 Aclidinium [place] [Tudorza 400 mcg IH DAILY 04/10/18 Pressair] Acetaminophen 650 mg PO Q6H PRN 04/11/18 Ascorbic Acid [Vitamin C -] 500 mg PO BID 04/11/18 Atorvastatin Ca [Lipitor] 20 mg PO HS 04/11/18 Clopidogrel Bisulfate [Plavix -] 75 mg PO DAILY 04/11/18 Docusate Sodium [Colace -] 300 mg PO HS 04/11/18 Guaifenesin 400 mg PO Q8H PRN 04/11/18 Memantine HCl 5 mg PO BID 04/11/18 oxyCODONE HCL [Roxicodone -] 10 mg PO Q6H PRN MDD 4 04/11/18 Insulin (Levemir) [Levemir Vial] 32 units SQ AM 06/06/18 Vital Signs Temperature 101.4 F H 06/06/18 05:54 Pulse Rate 77 06/06/18 05:54 Respiratory Rate 18 06/06/18 05:54 Blood Pressure 102/75 06/06/18 05:54 O2 Sat by Pulse Oximetry (%) 98 06/06/18 05:54 Intake & Output 06/04/18 06/04/18 06/05/18 06/06/18 00:59 23:59 23:59 23:59 Weight 80 kg NAD awake and alert neck supple, no JVD RRR, No M/R CTA soft NT/ND, no rebound or guarding no Le edema, right leg TMA with dressing in place no bladder distension CBC, BMP 06/06/18 08:00 06/06/18 08:00 Laboratory Tests 04/12/18 06/05/18 06/06/18 06:30 19:25 08:00 Creatinine 1.7 H 3.4 H 2.7 H Current Medications Albuterol/Ipratropium (Duoneb -) 1 amp NEB RQID [facility] Last Admin: 06/06/18 08:12 Dose: 1 amp Amlodipine Besylate (Norvasc -) 5 mg PO DAILY [facility] Last Admin: 06/06/18 09:10 Dose: 5 mg Ascorbic Acid (Vitamin C -) 500 mg PO BID [facility] Last Admin: 06/06/18 09:11 Dose: 500 mg Atorvastatin Calcium (Lipitor -) 20 mg PO HS [facility] Clopidogrel Bisulfate (Plavix -) 75 mg PO DAILY [facility] Last Admin: 06/06/18 09:10 Dose: 75 mg Docusate Sodium (Colace -) 300 mg PO HS [facility] Ergocalciferol (Drisdol -) 50,000 unit PO Mo@1000 [facility] Ferrous Sulfate (Feosol -) 325 mg PO BID [facility] Last Admin: 06/06/18 09:10 Dose: 325 mg Guaifenesin (Robitussin -) 20 ml PO Q8H PRN PRN Reason: COUGH/CHEST CONGESTION Sodium Chloride (Normal Saline -) 1,000 mls @ 75 mls/hr IV ASDIR [facility] Stop: 06/06/18 14:19 Last Admin: 06/06/18 01:55 Dose: 75 mls/hr Insulin Aspart (Novolog Vial Sliding Scale -) 1 vial SQ ACHS [facility]; Protocol Last Admin: 06/06/18 08:09 Dose: 3 unit Insulin Detemir (Levemir Vial) 32 units SQ AM [facility] Last Admin: 06/06/18 08:12 Dose: 32 unit Memantine (Namenda -) 5 mg PO BID [facility] Last Admin: 06/06/18 09:10 Dose: 5 mg Metoprolol Succinate (Toprol Xl -) 25 mg PO DAILY [facility] Last Admin: 06/06/18 09:11 Dose: 25 mg Pantoprazole Sodium (Protonix -) 40 mg PO DAILY [facility] Last Admin: 06/06/18 09:10 Dose: 40 mg Polyethylene Glycol (Miralax (For Daily Use) -) 17 gm PO DAILY [facility] Last Admin: 06/06/18 09:10 Dose: 17 grams Pramipexole Dihydrochloride (Mirapex -) 0.5 mg PO HS [facility] Last Admin: 06/06/18 02:40 Dose: 0.5 mg Pregabalin (Lyrica -) 150 mg PO BID [facility] Last Admin: 06/06/18 09:10 Dose: 150 mg Senna (Senna -) 2 tab PO HS [facility] Tamsulosin HCl (Flomax -) 0.4 mg PO DAILY@0830 [facility] Last Admin: 06/06/18 08:12 Dose: 0.4 mg Tiotropium [place] (Spiriva Respimat) 2 puff IH DAILY [facility] Last Admin: 06/06/18 09:11 Dose: Not Given Trazodone HCl (Desyrel -) 50 mg PO HS [facility] Zinc Sulfate (Orazinc -) 220 mg PO BID [facility] Last Admin: 06/06/18 09:10 Dose: 220 mg 67 year old gentleman with hx of CKD stage 4 (baseline Cr 1.6), Hypertension, DM , COPD, PVD s/p recent amputation who presented with fevers with JESÚS. 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
--- NOTE | 2018-06-06 12:07 | EKG ---
Test Reason : Blood Pressure : / mmHG Vent. Rate : 070 BPM Atrial Rate : 070 BPM P-R Int : 222 ms QRS Dur : 072 ms QT Int : 398 ms P-R-T Axes : 057 079 050 degrees QTc Int : 429 ms POOR DATA QUALITY, INTERPRETATION MAY BE ADVERSELY AFFECTED SINUS RHYTHM WITH 1ST DEGREE A-V BLOCK OTHERWISE NORMAL ECG Confirmed by MD KATHLEEN, KILO ([id number]) on 06/06/2018 12:07:14 PM Referred By: Confirmed By:KILO WANG MD
--- NOTE | 2018-06-06 12:40 | PN ---
Progress Note, Physician Chief Complaint: patient seen and examined in ER awake alert temp 101.4 - Current Medication List Current Medications: Active Medications Albuterol/Ipratropium (Duoneb -) 1 amp NEB RQID [facility] Last Admin: 06/06/18 12:03 Dose: 1 amp Amlodipine Besylate (Norvasc -) 5 mg PO DAILY [facility] Last Admin: 06/06/18 09:10 Dose: 5 mg Ascorbic Acid (Vitamin C -) 500 mg PO BID [facility] Last Admin: 06/06/18 09:11 Dose: 500 mg Atorvastatin Calcium (Lipitor -) 20 mg PO HS [facility] Clopidogrel Bisulfate (Plavix -) 75 mg PO DAILY [facility] Last Admin: 06/06/18 09:10 Dose: 75 mg Docusate Sodium (Colace -) [address] [facility] Ergocalciferol (Drisdol -) 50,000 unit PO Mo@1000 [facility] Ferrous Sulfate (Feosol -) 325 mg PO BID [facility] Last Admin: 06/06/18 09:10 Dose: 325 mg Guaifenesin (Robitussin -) 20 ml PO Q8H PRN PRN Reason: COUGH/CHEST CONGESTION Sodium Chloride (Normal Saline -) 1,000 mls @ 75 mls/hr IV ASDIR [facility] Stop: 06/06/18 14:19 Last Admin: 06/06/18 01:55 Dose: 75 mls/hr Insulin Aspart (Novolog Vial Sliding Scale -) 1 vial SQ ACHS [facility]; Protocol Last Admin: 06/06/18 12:28 Dose: Not Given Insulin Detemir (Levemir Vial) 32 units SQ AM [facility] Last Admin: 06/06/18 08:12 Dose: 32 unit Memantine (Namenda -) 5 mg PO BID [facility] Last Admin: 06/06/18 09:10 Dose: 5 mg Metoprolol Succinate (Toprol Xl -) 25 mg PO DAILY [facility] Last Admin: 06/06/18 09:11 Dose: 25 mg Pantoprazole Sodium (Protonix -) 40 mg PO DAILY [facility] Last Admin: 06/06/18 09:10 Dose: 40 mg Polyethylene Glycol (Miralax (For Daily Use) -) 17 gm PO DAILY [facility] Last Admin: 06/06/18 09:10 Dose: 17 grams Pramipexole Dihydrochloride (Mirapex -) 0.[address] [facility] Last Admin: 06/06/18 02:40 Dose: 0.5 mg Pregabalin (Lyrica -) 150 mg PO BID [facility] Last Admin: 06/06/18 09:10 Dose: 150 mg Senna (Senna -) 2 tab PO HS [facility] Tamsulosin HCl (Flomax -) 0.4 mg PO DAILY@0830 [facility] Last Admin: 06/06/18 08:12 Dose: 0.4 mg Tiotropium [place] (Spiriva Respimat) 2 puff IH DAILY [facility] Last Admin: 06/06/18 09:11 Dose: Not Given Trazodone HCl (Desyrel -) 50 mg PO HS [facility] Zinc Sulfate (Orazinc -) 220 mg PO BID [facility] Last Admin: 06/06/18 09:10 Dose: 220 mg - Objective Vital Signs: Vital Signs Temperature 101.4 F H 06/06/18 05:54 Pulse Rate 77 06/06/18 05:54 Respiratory Rate 18 06/06/18 05:54 Blood Pressure 102/75 06/06/18 05:54 O2 Sat by Pulse Oximetry (%) 98 06/06/18 05:54 Constitutional: Yes: Calm Neck: Yes: Trachea Midline Cardiovascular: Yes: Regular Rate and Rhythm, S1, S2 Respiratory: Yes: CTA Bilaterally Gastrointestinal: Yes: Normal Bowel Sounds, Soft Wound/Incision: Yes: Other (dressing removed right TMA pink wound with yellow discharge) Neurological: Yes: Alert, Oriented Labs: CBC, BMP 06/06/18 08:00 06/06/18 08:00 INR, PTT INR 1.26 (0.83-1.09) H 06/05/18 19:25 Problem List - Problems (1) JESÚS (acute kidney injury) Assessment/Plan: renal consult appreciate ivf monitor Cr Code(s): N17.9 - ACUTE KIDNEY FAILURE, UNSPECIFIED (2) Fever Assessment/Plan: blood and wound cultures, ID eval cristine mixono and haris once in ER foot wound- podiatry Code(s): R50.9 - FEVER, UNSPECIFIED Qualifiers: Fever type: unspecified Qualified Code(s): R50.9 - Fever, unspecified (3) Diabetes mellitus Assessment/Plan: bgm sliding scale [id number] levemir Code(s): E11.9 - TYPE 2 DIABETES MELLITUS WITHOUT COMPLICATIONS Qualifiers: Diabetes mellitus type: type 2 Diabetes mellitus fdc insulin use: unspecified c architect insulin use status Diabetes mellitus complication status : with skin complications Diabetes mellitus complication detail: with dermatitis Qualified Code(s): E11.620 - Type 2 diabetes mellitus with diabetic dermatitis (4) COPD (chronic obstructive pulmonary disease) Assessment/Plan: bronchodilators Code(s): J44.9 - CHRONIC OBSTRUCTIVE PULMONARY DISEASE, UNSPECIFIED Qualifiers: COPD type: COPD with acute lower respiratory infection Qualified Code(s): J44.0 - Chronic obstructive pulmonary disease with acute lower respiratory infection (5) Coronary artery disease Assessment/Plan: lipitor plavix and toprol Code(s): I25.10 - ATHSCL HEART DISEASE OF [place] CORONARY ARTERY W/O ANG PCTRS Qualifiers: Coronary Disease-Associated Artery/Lesion type: [place] artery [place] vs. transplanted heart: [place] heart Associated angina: without angina Qualified Code(s): I25.10 - Atherosclerotic heart disease of [place] coronary artery without angina pectoris
[2018-06-06] MEDS ORDERED: PIPERACILLIN/TAZOB 2.25 GM 2.25 GM in DEXTROSE 5%-WATER - 50 ML IVPB ONE (12:44)
[2018-06-06] MEDS ORDERED: PIPERACILLIN/TAZOB 2.25 GM 2.25 GM/50 ML BAG IVPB ONE (12:53)
[2018-06-06] MEDS ORDERED: oxyCODONE HCL 5 MG TABLET ONE (13:30)
[2018-06-06] MEDS: oxyCODONE HCL 5 MG TABLET PO PRN (13:38)
--- NOTE | 2018-06-06 17:44 | CON.ID ---
Consult Consult Specialty:: infectious disease Reason for Consultation:: fever - History of Present Illness Chief Complaint: fever History of Present Illness: 67 yo male with know DM and diabetic foot infections. He is s/p open TMA 02/[address] until 05/31 after he went home he felt fine his kids came home to see him and found he was confused and had urinated on himself he came to ED and was found to have temp of 101.5 - History Source History Provided By: Patient, Medical Record - Past Medical History MOVIE ACTOR: Yes: CVA Cardio/Vascular: Yes: HTN, Hyperlipdemia, Other (PAD) Pulmonary: Yes: Asthma, COPD, O2 Dependent, Sleep Apnea Hepatobiliary: Yes: Cholecystitis Renal/: Yes: Renal Inusuff Infectious Disease: Yes: MRSA Musculoskeletal: Yes: Other (chronic foot ulcers) Endocrine: Yes: Diabetes Mellitus - Past Surgical History Past Surgical History: Yes: Amputation (second toe left foot), Appendectomy, Carotid Endarterectomy (right), Cholecystectomy, Hernia Repair, Stent, Tonsillectomy - Alcohol/Substance Use Hx Alcohol Use: No Number of Drinks Daily: 2 (beer, cr on weekend) History of Substance Use: reports: None - Smoking History Smoking history: Unknown if ever smoked Have you smoked in the past 12 months: No Aproximately how many cigarettes per day: 3 If you are a former smoker, when did you quit?: 2017 - Social History Usual Living Arrangement: Alone ADL: Independent (uses a walker and wheelchair, in process of getting a scooter) 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 ,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 History of Recent Travel: No Home Medications - Allergies Allergies/Adverse Reactions: Allergies Allergy/AdvReac Type Severity Reaction Status Date / Time No Known Drug Allergies Allergy Verified 05/26/18 20:15 - Home Medications Home Medications: Ambulatory Orders Tamsulosin HCl [Flomax -] 0.4 mg PO DAILY 05/11/16 traZODone HCL [Desyrel -] 50 mg PO HS 05/11/16 Metoprolol Succinate [Toprol XL -] 25 mg PO DAILY tab.sr.24h 07/19/16 Amlodipine Besylate [Norvasc -] 5 mg PO DAILY tablet 10/29/16 Pantoprazole Sodium [Protonix] 40 mg PO DAILY 01/25/17 Furosemide [Lasix] 20 mg PO DAILY #0 mg 03/08/17 Pregabalin [Lyrica -] 150 mg PO BID 05/11/17 Ferrous Sulfate [Feosol] 325 mg PO BID ud 11/11/17 Ergocalciferol (Vitamin D2) [Drisdol] 1 tab PO WEEKLY 01/11/18 Pramipexole Di-HCl [Mirapex] 0.5 mg PO DAILY 01/11/18 Albuterol 2.5/Ipratropium 0.5 [Duoneb -] 1 amp NEB RQID amp 03/02/18 Polyethylene Glycol 3350 [Miralax 119 gm Btl -] 17 gm PO DAILY bottle 03/02/18 Sennosides [Senna -] 2 tab PO HS tablet 03/02/18 Zinc Sulfate [Orazinc -] 220 mg PO BID capsule 03/02/18 Aclidinium [place] [Tudorza Pressair] 400 mcg IH DAILY 04/10/18 Acetaminophen 650 mg PO Q6H PRN 04/11/18 Ascorbic Acid [Vitamin C -] 500 mg PO BID 04/11/18 Atorvastatin Ca [Lipitor] 20 mg PO HS 04/11/18 Clopidogrel Bisulfate [Plavix -] 75 mg PO DAILY 04/11/18 Docusate Sodium [Colace -] 300 mg PO HS 04/11/18 Guaifenesin 400 mg PO Q8H PRN 04/11/18 Memantine HCl 5 mg PO BID 04/11/18 oxyCODONE HCL [Roxicodone -] 10 mg PO Q6H PRN MDD 4 04/11/18 Insulin (Levemir) [Levemir Vial] 32 units SQ AM 06/06/18 Family Disease History - Family Disease History Family Disease History: Diabetes: Mother (htn), CA: Father (htn, prostate CA), Other: Father, Mother Review of Systems - Review of Systems Constitutional: reports: No Symptoms Eyes: reports: No Symptoms HENT: reports: No Symptoms Neck: reports: No Symptoms Cardiovascular: reports: No Symptoms Respiratory: reports: Cough (for 2 months) Gastrointestinal: reports: No Symptoms Genitourinary: reports: No Symptoms Physical Exam Vital Signs: Vital Signs Temperature 97.8 F 06/06/18 13:41 Pulse Rate 70 06/06/18 13:41 Respiratory Rate 18 06/06/18 13:41 Blood Pressure 121/75 06/06/18 13:41 O2 Sat by Pulse Oximetry (%) 96 06/06/18 13:41 Constitutional: Yes: Well Nourished, No Distress Eyes: Yes: Conjunctiva Clear HENT: Yes: Atraumatic, Normocephalic Neck: Yes: Supple, Trachea Midline Cardiovascular: Yes: Regular Rate and Rhythm Respiratory: Yes: Regular, Diminished Gastrointestinal: Yes: Normal Bowel Sounds, Soft Extremities: Yes: Other (left tma- samll 2 cm opening with serous draainage, no erythema left foot no ulcers) Psychiatric: Yes: Alert, Oriented Labs: CBC, BMP 06/06/18 08:00 06/06/18 08:00 cultures pending Imaging - Results Chest X-ray: Report Reviewed, Image Reviewed Problem List - Problems (1) Fever Code(s): R50.9 - FEVER, UNSPECIFIED Qualifiers: Fever type: unspecified Qualified Code(s): R50.9 - Fever, unspecified (2) Chronic cough Code(s): R05 - COUGH (3) Wound, open, foot Code(s): S91.309A - UNSPECIFIED OPEN WOUND, UNSPECIFIED FOOT, INITIAL ENCOUNTER Qualifiers: Encounter type: initial encounter Laterality: right Qualified Code(s): S91.301A - Unspecified open wound, right foot, initial encounter (4) Acute kidney injury superimposed on CKD Code(s): N17.9 - ACUTE KIDNEY FAILURE, UNSPECIFIED; N18.9 - CHRONIC KIDNEY DISEASE, UNSPECIFIED Assessment/Plan s/p vancomycin and zosyn continue zosyn check vancomcin level f/u cultures chronic cough for [address] legionella urinary antigen esr/crp
[2018-06-06] MEDS: traZODone HCL 50 MG TABLET (FP) PO SCH (22:30)
[2018-06-06] MEDS: SENNOSIDES 8.6MG TABLET (FP) PO SCH (22:30)
[2018-06-06] MEDS: DOCUSATE SODIUM 100 MG CAPSULE (FP) PO SCH (22:30)
[2018-06-06] MEDS: ATORVASTATIN CA 20 MG TABLET (FP) PO SCH (22:30)
[2018-06-07] MEDS ORDERED: PREGABALIN 50 MG CAPSULE ONE ×2 (00:56→09:29)
[2018-06-07] MEDS: INSULIN SLIDING SCALE (NOVOLOG) 1 VIAL SQ SCH ×4 (06:07→21:50)
[2018-06-07] MEDS: INSULIN (LEVEMIR) 100 UNITS/ML UNITS SQ SCH (06:12)
[2018-06-07 06:15] LABS: ALBUMIN 2.6 g/dl (3.4-5.0); ALK PHOS 133 U/L (45-117); ANION GAP 6 MMOL/L (8-16); BILIRUBIN,TOTAL 0.2 mg/dL (0.2-1); BLOOD UREA NITROGEN 39 mg/dL (7-18); CALCIUM 8.1 mg/dL (8.5-10.1); CHLORIDE 108 mmol/L (98-107); CO2 23 mmol/L (21-32); CREATININE 1.9 mg/dL (0.55-1.3); GLUCOSE,RANDOM 168 mg/dL (74-106); POTASSIUM 4.7 mmol/L (3.5-5.1); SGOT/AST 11 U/L (15-37); SGPT/ALT 13 U/L (13-61); SODIUM 138 mmol/L (136-145); TOT PROT 6.7 g/dl (6.4-8.2)
[2018-06-07 06:31] LABS: ADD RBC MORPHOLOGY YES; EOS % 7.9 % (0-4.5); HEMATOCRIT 34.2 % (35.4-49); HEMOGLOBIN 10.4 GM/dL (11.7-16.9); LYMPH % 22.1 % (8-40); MCH 21.6 pg (25.7-33.7); MCHC 30.2 g/dl (32.0-35.9); MEAN CELL VOLUME 71.5 fl (80-96); MEAN PLT VOLUME 9.6 fl (7.5-11.1); PLATELET COUNT 173 K/MM3 (134-434); RBC 4.79 M/mm3 (4.00-5.60); RDW 17.8 % (11.9-15.9); WHITE BLOOD COUNT 5.3 K/mm3 (4.0-10.0)
[2018-06-07] MEDS: ALBUTEROL SO4 2.5/IPRATROPIUM 0.5 INH SOL 3 ML VIAL.NEB. NEB SCH ×4 (08:07→20:49)
[2018-06-07] MEDS: FERROUS SO4 325 MG TABLET (FP) PO SCH ×2 (09:27→21:51)
[2018-06-07] MEDS: TAMSULOSIN HCL 0.4 MG CAP PO SCH (09:27)
[2018-06-07] MEDS: POLYETHYLENE GLYCOL 3350 119 GM BTL PO SCH (09:30)
[2018-06-07] MEDS ORDERED: PREGABALIN 100 MG CAPSULE ONE (09:30)
[2018-06-07] MEDS: PREGABALIN 75 MG CAPSULE PO SCH ×2 (09:30→21:51)
[2018-06-07] MEDS: amLODIPine BESYLATE 5 MG TABLET (FP) PO SCH (09:31)
[2018-06-07] MEDS: metoPROLOL SUCCINATE 25 MG TAB.SR.24H (FP) PO SCH (09:31)
[2018-06-07] MEDS: ASCORBIC ACID 500 MG TABLET (FP) PO SCH ×2 (09:31→21:52)
[2018-06-07] MEDS: TIOTROPIUM BROMIDE 2.5 MCG (SPIRIVA) RESPIMAT INHALER IH SCH (09:31)
[2018-06-07] MEDS: MEMANTINE HCL 5 MG TABLET (UD) PO SCH ×2 (09:31→21:51)
[2018-06-07] MEDS: ZINC SULFATE 220 MG CAPSULE (FP) PO SCH ×2 (09:31→21:51)
[2018-06-07] MEDS: PANTOPRAZOLE 40 MG TABLET (FP) PO SCH (09:31)
[2018-06-07] MEDS: CLOPIDOGREL BISULFATE 75 MG TABLET (FP) PO SCH (09:31)
--- NOTE | 2018-06-07 10:31 | PN ---
Progress Note (short form) - Note Progress Note: resting comfortably no further fevers Vital Signs Period Temp Pulse Resp BP Sys/Cintron Pulse Ox Last 24 Hr 97.8 F-98.9 F 68-70 16-18 112-121/75-78 96-98 cor-rrr lungs clear abd soft,nt ext dressing intact CBC, BMP 06/07/18 05:22 06/07/18 05:22 Microbiology 06/05/18 18:39 Urine - Urine Clean Catch Urine Culture - Final NO GROWTH OBTAINED 06/05/18 19:25 Blood - Peripheral Venous Blood Culture - Preliminary NO GROWTH OBTAINED AFTER 24 HOURS, INCUBATION TO CONTINUE FOR 4 DAYS. 06/05/18 19:25 Blood - Peripheral Venous Blood Culture - Preliminary NO GROWTH OBTAINED AFTER 24 HOURS, INCUBATION TO CONTINUE FOR 4 DAYS. 06/05/18 20:10 Nasopharyngeal Swab Influenza Types A,B Antigen - Final 06/05/18 20:10 Nasopharyngeal Swab - Final chest ct no infiltrate a/p fevers-no clear source sherman history of left TMA diabetes resolving continue zosyn f/u cultures Problem List - Problems (1) Fever Code(s): R50.9 - FEVER, UNSPECIFIED Qualifiers: Fever type: unspecified Qualified Code(s): R50.9 - Fever, unspecified (2) Chronic cough Code(s): R05 - COUGH (3) Wound, open, foot Code(s): S91.309A - UNSPECIFIED OPEN WOUND, UNSPECIFIED FOOT, INITIAL ENCOUNTER Qualifiers: Encounter type: initial encounter Laterality: right Qualified Code(s): S91.301A - Unspecified open wound, right foot, initial encounter (4) Acute kidney injury superimposed on CKD Code(s): N17.9 - ACUTE KIDNEY FAILURE, UNSPECIFIED; N18.9 - CHRONIC KIDNEY DISEASE, UNSPECIFIED
--- NOTE | 2018-06-07 11:23 | PN ---
Progress Note (short form) - Note Progress Note: Renal follow up for JESÚS Pt seen and examined in the ER no acute complaints no fever, chills, sob, cp, abd pain, N/V/D making urine Vital Signs Temperature 98.9 F 06/07/18 05:15 Pulse Rate 68 06/07/18 05:15 Respiratory Rate 16 06/07/18 05:15 Blood Pressure 112/78 06/07/18 05:15 O2 Sat by Pulse Oximetry (%) 98 06/07/18 05:15 Intake & Output 06/04/18 06/05/18 06/06/18 06/07/18 23:59 23:59 23:59 23:59 Weight 80 kg NAD RRR CTA no LE edema CBC, BMP 06/07/18 05:22 06/07/18 05:22 Laboratory Tests 06/07/18 06/07/18 06/07/18 05:22 05:22 05:22 MCV 71.5 L ESR Calcium 8.1 L C-Reactive Protein 8.1 H Albumin 2.6 L 06/07/18 05:22 MCV ESR 58 H Calcium C-Reactive Protein Albumin Current Medications Albuterol/Ipratropium (Duoneb -) 1 amp NEB RQID [facility] Last Admin: 06/07/18 08:07 Dose: 1 amp Amlodipine Besylate (Norvasc -) 5 mg PO DAILY [facility] Last Admin: 06/07/18 09:31 Dose: 5 mg Ascorbic Acid (Vitamin C -) 500 mg PO BID [facility] Last Admin: 06/07/18 09:31 Dose: 500 mg Atorvastatin Calcium (Lipitor -) 20 mg PO HS [facility] Last Admin: 06/06/18 22:30 Dose: 20 mg Clopidogrel Bisulfate (Plavix -) 75 mg PO DAILY [facility] Last Admin: 06/07/18 09:31 Dose: 75 mg Docusate Sodium (Colace -) 300 mg PO HS [facility] Last Admin: 06/06/18 22:30 Dose: 300 mg Ergocalciferol (Drisdol -) 50,000 unit PO Mo@1000 [facility] Ferrous Sulfate (Feosol -) 325 mg PO BID [facility] Last Admin: 06/07/18 09:27 Dose: 325 mg Guaifenesin (Robitussin -) 20 ml PO Q8H PRN PRN Reason: COUGH/CHEST CONGESTION Piperacillin Sod/Tazobactam (Sod 2.25 gm/ Dextrose) 50 mls @ 100 mls/hr IVPB Q8H-IV [facility]; Protocol Insulin Aspart (Novolog Vial Sliding Scale -) 1 vial SQ ACHS [facility]; Protocol Last Admin: 06/07/18 06:07 Dose: Not Given Insulin Detemir (Levemir Vial) 32 units SQ AM [facility] Last Admin: 06/07/18 06:12 Dose: 32 unit Memantine (Namenda -) 5 mg PO BID [facility] Last Admin: 06/07/18 09:31 Dose: 5 mg Metoprolol Succinate (Toprol Xl -) 25 mg PO DAILY [facility] Last Admin: 06/07/18 09:31 Dose: 25 mg Oxycodone HCl (Roxicodone -) 10 mg PO Q6H PRN PRN Reason: PAIN LEVEL 7 - 10 Last Admin: 06/06/18 13:38 Dose: 10 mg Pantoprazole Sodium (Protonix -) 40 mg PO DAILY [facility] Last Admin: 06/07/18 09:31 Dose: 40 mg Polyethylene Glycol (Miralax (For Daily Use) -) 17 gm PO DAILY [facility] Last Admin: 06/07/18 09:30 Dose: 17 grams Pramipexole Dihydrochloride (Mirapex -) 0.5 mg PO HS [facility] Last Admin: 06/06/18 22:30 Dose: 0.5 mg Pregabalin (Lyrica -) 150 mg PO BID [facility] Last Admin: 06/07/18 09:30 Dose: 150 mg Senna (Senna -) 2 tab PO HS [facility] Last Admin: 06/06/18 22:30 Dose: 2 tab Tamsulosin HCl (Flomax -) 0.4 mg PO DAILY@0830 [facility] Last Admin: 06/07/18 09:27 Dose: 0.4 mg Tiotropium [place] (Spiriva Respimat) 2 puff IH DAILY [facility] Last Admin: 06/07/18 09:31 Dose: Not Given Trazodone HCl (Desyrel -) 50 mg PO HS [facility] Last Admin: 06/06/18 22:30 Dose: 50 mg Zinc Sulfate (Orazinc -) 220 mg PO BID [facility] Last Admin: 06/07/18 09:31 Dose: 220 mg 67 year old gentleman with hx of CKD stage 4 (baseline Cr 1.6), Hypertension, DM , COPD, PVD s/p recent amputation who presented with fevers with JESÚS. #JESÚS on CKD stage 3 likely due to volume depletion in setting of fever and diuretic use (FeNa was 0..61%) #Fevers r/o sepsis #Hypertension #DM #PVD Renal function now improved to near baseline can d/c IVF and trend renal function on oral diet would continue to hold LUIS/ARB and diuretics at this time continue Abx as per ID and follow up culture reports Deven Layton DO
[2018-06-07] MEDS ORDERED: INSULIN (NOVOLOG) ASPART 100 UNITS/ML 10ML VIAL ONE ×2 (12:02→17:20)
--- NOTE | 2018-06-07 15:40 | PN ---
Progress Note, Physician Chief Complaint: Sepsis History of Present Illness: NAD Came in with fever ESR/CRP elevated Cultures pending podiatry and vascular surgery consult pending Seen by ID Started on Zosyn - Current Medication List Current Medications: Active Medications Albuterol/Ipratropium (Duoneb -) 1 amp NEB RQID [facility] Last Admin: 06/07/18 12:11 Dose: 1 amp Amlodipine Besylate (Norvasc -) 5 mg PO DAILY [facility] Last Admin: 06/07/18 09:31 Dose: 5 mg Ascorbic Acid (Vitamin C -) 500 mg PO BID [facility] Last Admin: 06/07/18 09:31 Dose: 500 mg Atorvastatin Calcium (Lipitor -) 20 mg PO HS [facility] Last Admin: 06/06/18 22:30 Dose: 20 mg Clopidogrel Bisulfate (Plavix -) 75 mg PO DAILY [facility] Last Admin: 06/07/18 09:31 Dose: 75 mg Docusate Sodium (Colace -) 300 mg PO HS [facility] Last Admin: 06/06/18 22:30 Dose: 300 mg Ergocalciferol (Drisdol -) 50,000 unit PO Mo@1000 [facility] Ferrous Sulfate (Feosol -) 325 mg PO BID [facility] Last Admin: 06/07/18 09:27 Dose: 325 mg Guaifenesin (Robitussin -) 20 ml PO Q8H PRN PRN Reason: COUGH/CHEST CONGESTION Piperacillin Sod/Tazobactam (Sod 2.25 gm/ Dextrose) 50 mls @ 100 mls/hr IVPB Q8H-IV [facility]; Protocol Insulin Aspart (Novolog Vial Sliding Scale -) 1 vial SQ ACHS [facility]; Protocol Last Admin: 06/07/18 12:01 Dose: 6 unit Insulin Detemir (Levemir Vial) 32 units SQ AM [facility] Last Admin: 06/07/18 06:12 Dose: 32 unit Memantine (Namenda -) 5 mg PO BID [facility] Last Admin: 06/07/18 09:31 Dose: 5 mg Metoprolol Succinate (Toprol Xl -) 25 mg PO DAILY [facility] Last Admin: 06/07/18 09:31 Dose: 25 mg Oxycodone HCl (Roxicodone -) 10 mg PO Q6H PRN PRN Reason: PAIN LEVEL 7 - 10 Last Admin: 06/06/18 13:38 Dose: 10 mg Pantoprazole Sodium (Protonix -) 40 mg PO DAILY [facility] Last Admin: 06/07/18 09:31 Dose: 40 mg Polyethylene Glycol (Miralax (For Daily Use) -) 17 gm PO DAILY [facility] Last Admin: 06/07/18 09:30 Dose: 17 grams Pramipexole Dihydrochloride (Mirapex -) 0.5 mg PO HS [facility] Last Admin: 06/06/18 22:30 Dose: 0.5 mg Pregabalin (Lyrica -) 150 mg PO BID [facility] Last Admin: 06/07/18 09:30 Dose: 150 mg Senna (Senna -) 2 tab PO HS [facility] Last Admin: 06/06/18 22:30 Dose: 2 tab Tamsulosin HCl (Flomax -) 0.4 mg PO DAILY@0830 [facility] Last Admin: 06/07/18 09:27 Dose: 0.4 mg Tiotropium [place] (Spiriva Respimat) 2 puff IH DAILY [facility] Last Admin: 06/07/18 09:31 Dose: Not Given Trazodone HCl (Desyrel -) 50 mg PO [facility] Last Admin: 06/06/18 22:30 Dose: 50 mg Zinc Sulfate (Orazinc -) 220 mg PO BID [facility] Last Admin: 06/07/18 09:31 Dose: 220 mg - Objective Vital Signs: Vital Signs Temperature 98.5 F 06/07/18 11:47 Pulse Rate 67 06/07/18 11:47 Respiratory Rate 18 06/07/18 11:47 Blood Pressure 124/67 06/07/18 11:47 O2 Sat by Pulse Oximetry (%) 96 06/07/18 11:47 Constitutional: Yes: Well Nourished, No Distress, Calm Cardiovascular: Yes: Regular Rate and Rhythm Respiratory: Yes: Regular Gastrointestinal: Yes: Normal Bowel Sounds, Soft Musculoskeletal: Yes: Muscle Weakness Extremities: Yes: Amputation Wound/Incision: Yes: Dressing Dry and Intact Neurological: Yes: Alert, Oriented Psychiatric: Yes: Alert, Oriented Labs: CBC, BMP 06/07/18 05:22 06/07/18 05:22 INR, PTT INR 1.26 (0.83-1.09) H 06/05/18 19:25 Problem List - Problems (1) Fever Assessment/Plan: -afebrile overnight -Cultures pending -ID consult -Started on IV Zosyn -Acetaminophen 650 mg Q6H PRN Code(s): R50.9 - FEVER, UNSPECIFIED Qualifiers: Fever type: unspecified Qualified Code(s): R50.9 - Fever, unspecified (2) Charcot foot due to diabetes mellitus Assessment/Plan: -Vascular consult -podiatry consult -ID on board -Cultures pending -IV abx -Oxycodone 10 mg Code(s): E11.610 - TYPE 2 DIABETES MELLITUS W DIABETIC NEUROPATHIC ARTHROPATHY (3) Chronic osteomyelitis Assessment/Plan: -ESR,CRP elevated -Vascular consult -podiatry consult -ID on board -Cultures pending Code(s): M86.60 - OTHER CHRONIC OSTEOMYELITIS, UNSPECIFIED SITE (4) Acute kidney injury superimposed on CKD Assessment/Plan: -Seen by Nephrology -Trend Cr Code(s): N17.9 - ACUTE KIDNEY FAILURE, UNSPECIFIED; N18.9 - CHRONIC KIDNEY DISEASE, UNSPECIFIED (5) Chronic cough Assessment/Plan: -CT chest: Faint ill-defined groundglass appearance of mainly the upper lobes with minimal thickening of the interstitial septa that may represent mild atelectatic changes. Cannot rule out interstitial lung disease or minimal noncardiogenic pulmonary venous congestion. Cannot rule out inflammatory changes. Correlate clinically. No focal airspace disease/pneumonic infiltrates are identified. Slightly enlarged right paratracheal lymph node measuring 1.5 x 1.1 cm. Correlate clinically for further evaluation. 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: unspecified usp insulin use status Diabetes mellitus complication status : with skin complications Diabetes mellitus complication detail: with dermatitis Qualified Code(s): E11.620 - Type 2 diabetes mellitus with diabetic dermatitis (8) Anemia Assessment/Plan: -CKD vs chronic disease vs BRAIN -On ferrous sulfate bid for BRAIN in the past -recheck iron profile -transfuse for Hg <7.0 to avoid fluid overload -monitor trend -recheck stool OB Code(s): D64.9 - ANEMIA, UNSPECIFIED Qualifiers: Anemia type: unspecified type Qualified Code(s): D64.9 - Anemia, unspecified Assessment/Plan see problem list DVT prophylaxis Physical therapy
[2018-06-07] MEDS ORDERED: PIPERACILLIN/TAZOB 2.25 GM 2.25 GM/50 ML BAG IVPB ONE (17:24)
[2018-06-07] MEDS: PIPERACILLIN/TAZOB 2.25 GM 2.25 GM in DEXTROSE 5%-WATER - 50 ML IVPB SCH (17:27)
--- NOTE | 2018-06-07 19:43 | CONSULT ---
Consult Consult Specialty:: Podiatry Reason for Consultation:: wound care b/l feet - History of Present Illness Chief Complaint: s/p high foot tarso metatarsal level amputation right, + pretrophic wound left, History of Present Illness: amputation January Dr. Sanders. Pretrophic wound left foot. 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 Cardio/Vascular: Yes: HTN, Hyperlipdemia, Other (PAD) Pulmonary: Yes: Asthma, COPD, O2 Dependent, Sleep Apnea Hepatobiliary: Yes: Cholecystitis Renal/: Yes: Renal Inusuff Infectious Disease: Yes: MRSA Musculoskeletal: Yes: Other (chronic foot ulcers) Endocrine: Yes: Diabetes Mellitus - Past Surgical History Past Surgical History: Yes: Amputation (second toe left foot), Appendectomy, Carotid Endarterectomy (right), Cholecystectomy, Hernia Repair, Stent, Tonsillectomy - Alcohol/Substance Use Hx Alcohol Use: No Number of Drinks Daily: 2 (beer, cr on weekend) History of Substance Use: reports: None - Smoking History Smoking history: Unknown if ever smoked Have you smoked in the past 12 months: No Aproximately how many cigarettes per day: 3 If you are a former smoker, when did you quit?: 2017 - Social History Usual Living Arrangement: Alone ADL: Independent (uses a walker and wheelchair, in process of getting a scooter) 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 ,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 History of Recent Travel: No Home Medications - Allergies Allergies/Adverse Reactions: Allergies Allergy/AdvReac Type Severity Reaction Status Date / Time No Known Drug Allergies Allergy Verified 05/26/18 20:15 - Home Medications Home Medications: Ambulatory Orders Tamsulosin HCl [Flomax -] 0.4 mg PO DAILY 05/11/16 traZODone HCL [Desyrel -] 50 mg PO HS 05/11/16 Metoprolol Succinate [Toprol XL -] 25 mg PO DAILY tab.sr.24h 07/19/16 Amlodipine Besylate [Norvasc -] 5 mg PO DAILY tablet 10/29/16 Pantoprazole Sodium [Protonix] 40 mg PO DAILY 01/25/17 Furosemide [Lasix] 20 mg PO DAILY #0 mg 03/08/17 Pregabalin [Lyrica -] 150 mg PO BID 05/11/17 Ferrous Sulfate [Feosol] 325 mg PO BID ud 11/11/17 Ergocalciferol (Vitamin D2) [Drisdol] 1 tab PO WEEKLY 01/11/18 Pramipexole Di-HCl [Mirapex] 0.5 mg PO DAILY 01/11/18 Albuterol 2.5/Ipratropium 0.5 [Duoneb -] 1 amp NEB RQID amp 03/02/18 Polyethylene Glycol 3350 [Miralax 119 gm Btl -] 17 gm PO DAILY bottle 03/02/18 Sennosides [Senna -] 2 tab PO HS tablet 03/02/18 Zinc Sulfate [Orazinc -] 220 mg PO BID capsule 03/02/18 Aclidinium [place] [Tudorza Pressair] 400 mcg IH DAILY 04/10/18 Acetaminophen 650 mg PO Q6H PRN 04/11/18 Ascorbic Acid [Vitamin C -] 500 mg PO BID 04/11/18 Atorvastatin Ca [Lipitor] 20 mg PO HS 04/11/18 Clopidogrel Bisulfate [Plavix -] 75 mg PO DAILY 04/11/18 Docusate Sodium [Colace -] 300 mg PO HS 04/11/18 Guaifenesin 400 mg PO Q8H PRN 04/11/18 Memantine HCl 5 mg PO BID 04/11/18 oxyCODONE HCL [Roxicodone -] 10 mg PO Q6H PRN MDD 4 04/11/18 Insulin (Levemir) [Levemir Vial] 32 units SQ AM 06/06/18 Family Disease History - Family Disease History Family Disease History: Diabetes: Mother (htn), CA: Father (htn, prostate CA), Other: Father, Mother Physical Exam Vital Signs: Vital Signs Temperature 97.7 F 06/07/18 18:07 Pulse Rate 76 06/07/18 18:07 Respiratory Rate 18 06/07/18 18:07 Blood Pressure 145/73 06/07/18 18:07 O2 Sat by Pulse Oximetry (%) 100 06/07/18 18:07 Extremities: Yes: Other (amputation stump right, pretrophic wound plantar left) Labs: CBC, BMP 06/07/18 05:22 06/07/18 05:22 Assessment/Plan s/p amputation right pretrophic wound left Santyl to wounds b/l. Patient is following in [facility] with Dr. Sanders. Will follow. xray b/l feet.
[2018-06-07] MEDS ORDERED: PT OWN MED DRAWER 7, Y5N ONE (21:23)
[2018-06-07] MEDS: HEPARIN NA (PORCINE) 5,000 UNITS/ML 1ML VIAL SQ SCH (21:50)
[2018-06-07] MEDS: traZODone HCL 50 MG TABLET (FP) PO SCH (21:51)
[2018-06-07] MEDS: ATORVASTATIN CA 20 MG TABLET (FP) PO SCH (21:51)
[2018-06-07] MEDS: guaiFENesin 600 MG TABLET.ER (FP) PO SCH (21:51)
[2018-06-07] MEDS: SENNOSIDES 8.6MG TABLET (FP) PO SCH (21:51)
[2018-06-07] MEDS: DOCUSATE SODIUM 100 MG CAPSULE (FP) PO SCH (21:51)
[2018-06-07] MEDS: PRAMIPEXOLE DIHYDROCHLORIDE 0.5 MG TABLET PO SCH (21:52)
[2018-06-07] MEDS: COLLAGENASE CLOSTRIDIUM HIST. 30 GRAMS TUBE TP SCH (21:57)
[2018-06-08] MEDS ORDERED: DEXTROSE 5%-WATER - 50 ML IVPB ONE ×3 (01:59→17:34)
[2018-06-08] MEDS ORDERED: PIPERACILLIN/TAZOBACTAM 2.25 GM VIAL IVPB ONE ×3 (01:59→17:33)
[2018-06-08] MEDS: PIPERACILLIN/TAZOB 2.25 GM 2.25 GM in DEXTROSE 5%-WATER - 50 ML IVPB SCH ×3 (02:11→17:45)
[2018-06-08] MEDS: oxyCODONE HCL 5 MG TABLET PO PRN ×2 (02:19→21:34)
[2018-06-08] MEDS: INSULIN SLIDING SCALE (NOVOLOG) 1 VIAL SQ SCH ×4 (06:10→21:23)
[2018-06-08] MEDS: INSULIN (LEVEMIR) 100 UNITS/ML UNITS SQ SCH (06:13)
[2018-06-08 07:33] VITALS: BMI 28.0
[2018-06-08 07:35] LABS: BASO % 1.1 % (0-2.0); EOS % 7.7 % (0-4.5); HEMATOCRIT 36.6 % (35.4-49); LYMPH % 22.8 % (8-40); MCH 21.7 pg (25.7-33.7); MCHC 30.2 g/dl (32.0-35.9); MEAN CELL VOLUME 72.1 fl (80-96); MEAN PLT VOLUME 9.5 fl (7.5-11.1); MONO % 10.5 % (3.8-10.2); NEUT % 57.9 % (42.8-82.8); PLATELET COUNT 202 K/MM3 (134-434); RBC 5.07 M/mm3 (4.00-5.60); RDW 18.1 % (11.9-15.9); WHITE BLOOD COUNT 6.2 K/mm3 (4.0-10.0)
[2018-06-08 07:47] LABS: ANION GAP 9 MMOL/L (8-16); BLOOD UREA NITROGEN 29 mg/dL (7-18); CALCIUM 8.4 mg/dL (8.5-10.1); CHLORIDE 110 mmol/L (98-107); CO2 24 mmol/L (21-32); CREATININE 1.6 mg/dL (0.55-1.3); GLUCOSE,RANDOM 109 mg/dL (74-106); MAGNESIUM 1.9 mg/dL (1.8-2.4); POTASSIUM 4.9 mmol/L (3.5-5.1); SODIUM 142 mmol/L (136-145)
[2018-06-08] MEDS: ALBUTEROL SO4 2.5/IPRATROPIUM 0.5 INH SOL 3 ML VIAL.NEB. NEB SCH ×4 (08:29→19:25)
[2018-06-08] MEDS ORDERED: PT OWN MED DRAWER 7, Y5N ONE ×4 (09:55→20:55)
[2018-06-08] MEDS: ZINC SULFATE 220 MG CAPSULE (FP) PO SCH ×2 (11:09→21:24)
[2018-06-08] MEDS: metoPROLOL SUCCINATE 25 MG TAB.SR.24H (FP) PO SCH (11:09)
[2018-06-08] MEDS: amLODIPine BESYLATE 5 MG TABLET (FP) PO SCH (11:09)
[2018-06-08] MEDS: MEMANTINE HCL 5 MG TABLET (UD) PO SCH ×2 (11:09→21:24)
[2018-06-08] MEDS: CLOPIDOGREL BISULFATE 75 MG TABLET (FP) PO SCH (11:09)
[2018-06-08] MEDS: PANTOPRAZOLE 40 MG TABLET (FP) PO SCH (11:09)
[2018-06-08] MEDS: PREGABALIN 75 MG CAPSULE PO SCH ×2 (11:11→21:24)
[2018-06-08] MEDS: POLYETHYLENE GLYCOL 3350 119 GM BTL PO SCH (11:11)
[2018-06-08] MEDS: TAMSULOSIN HCL 0.4 MG CAP PO SCH (11:11)
[2018-06-08] MEDS: HEPARIN NA (PORCINE) 5,000 UNITS/ML 1ML VIAL SQ SCH ×2 (11:11→21:25)
[2018-06-08] MEDS: guaiFENesin 600 MG TABLET.ER (FP) PO SCH ×2 (11:11→21:24)
[2018-06-08] MEDS: FERROUS SO4 325 MG TABLET (FP) PO SCH ×2 (11:11→21:24)
[2018-06-08] MEDS: ASCORBIC ACID 500 MG TABLET (FP) PO SCH ×2 (11:11→21:23)
--- NOTE | 2018-06-08 11:16 | PN ---
Progress Note (short form) - Note Progress Note: Renal follow up for JESÚS Pt seen and examined at the bedside awake and alert no acute complaints no sob, cp, abd pain, fever, chills tolerating oral diet Vital Signs Temperature 98.3 F 06/08/18 06:00 Pulse Rate 66 06/08/18 06:00 Respiratory Rate 18 06/08/18 06:00 Blood Pressure 105/53 L 06/08/18 06:00 O2 Sat by Pulse Oximetry (%) 96 06/07/18 19:43 Intake & Output 06/05/18 06/06/18 06/07/18 06/08/18 23:59 23:59 23:59 23:59 Intake Total 250 100 Output Total 300 700 Balance -50 -600 Weight 80 kg 81.335 kg NAD Right foot in dressing with some staining CBC, BMP 06/08/18 06:00 06/08/18 06:00 Microbiology 06/07/18 11:08 Urine For Antigen Detection Legionella Antigen - Final Negative 06/07/18 11:08 Urine For Antigen Detection Streptococcus pneumoniae Antigen (M - Final 06/06/18 17:30 Wound Gram Stain - Final 06/06/18 17:30 Wound Wound Culture - Preliminary Non Lactose Fermenting Gnb 06/05/18 19:25 Blood - Peripheral Venous Blood Culture - Preliminary NO GROWTH OBTAINED AFTER 48 HOURS, INCUBATION TO CONTINUE FOR 3 DAYS. 06/05/18 19:25 Blood - Peripheral Venous Blood Culture - Preliminary NO GROWTH OBTAINED AFTER 48 HOURS, INCUBATION TO CONTINUE FOR 3 DAYS. Laboratory Tests 06/08/18 06/08/18 06/08/18 06:00 06:00 06:00 Hemoglobin A1c % 8.8 H Calcium 8.4 L Phosphorus 3.0 Magnesium 1.9 Iron Pending TIBC Pending Iron Saturation Pending Ferritin 659.2 H Current Medications Albuterol/Ipratropium (Duoneb -) 1 amp NEB RQID [facility] Last Admin: 06/07/18 20:49 Dose: 1 amp Amlodipine Besylate (Norvasc -) 5 mg PO DAILY [facility] Last Admin: 06/08/18 11:09 Dose: 5 mg Ascorbic Acid (Vitamin C -) 500 mg PO BID [facility] Last Admin: 06/08/18 11:11 Dose: 500 mg Atorvastatin Calcium (Lipitor -) 20 mg PO HS [facility] Last Admin: 06/07/18 21:51 Dose: 20 mg Clopidogrel Bisulfate (Plavix -) 75 mg PO DAILY [facility] Last Admin: 06/08/18 11:09 Dose: 75 mg Collagenase (Santyl -) 1 applic TP DAILY [facility]; Protocol Last Admin: 06/07/18 21:57 Dose: 1 applic Docusate Sodium (Colace -) 300 mg PO HS [facility] Last Admin: 06/07/18 21:51 Dose: 300 mg Ergocalciferol (Drisdol -) 50,000 unit PO Mo@1000 MISSAEL Ferrous Sulfate (Feosol -) 325 mg PO BID [facility] Last Admin: 06/08/18 11:11 Dose: 325 mg Guaifenesin (Robitussin -) 20 ml PO Q8H PRN PRN Reason: COUGH/CHEST CONGESTION Guaifenesin (Mucinex -) 1,200 mg PO BID [facility] Last Admin: 06/08/18 11:11 Dose: 1,200 mg Heparin Sodium (Porcine) (Heparin -) 5,000 unit SQ BID [facility] Last Admin: 06/08/18 11:11 Dose: 5,000 unit Piperacillin Sod/Tazobactam (Sod 2.25 gm/ Dextrose) 50 mls @ 100 mls/hr IVPB Q8H-IV [facility]; Protocol Last Admin: 06/08/18 11:12 Dose: 100 mls/hr Insulin Aspart (Novolog Vial Sliding Scale -) 1 vial SQ ACHS [facility]; Protocol Last Admin: 06/08/18 06:10 Dose: Not Given Insulin Detemir (Levemir Vial) 32 units SQ AM [facility] Last Admin: 06/08/18 06:13 Dose: 32 unit Memantine (Namenda -) 5 mg PO BID [facility] Last Admin: 06/08/18 11:09 Dose: 5 mg Metoprolol Succinate (Toprol Xl -) 25 mg PO DAILY [facility] Last Admin: 06/08/18 11:09 Dose: 25 mg Oxycodone HCl (Roxicodone -) 10 mg PO Q6H PRN PRN Reason: PAIN LEVEL 7 - 10 Last Admin: 06/08/18 02:19 Dose: 10 mg Pantoprazole Sodium (Protonix -) 40 mg PO DAILY [facility] Last Admin: 06/08/18 11:09 Dose: 40 mg Polyethylene Glycol (Miralax (For Daily Use) -) 17 gm PO DAILY [facility] Last Admin: 06/08/18 11:11 Dose: 17 grams Pramipexole Dihydrochloride (Mirapex -) 0.5 mg PO HS [facility] Last Admin: 06/07/18 21:52 Dose: 0.5 mg Pregabalin (Lyrica -) 150 mg PO BID [facility] Last Admin: 06/08/18 11:11 Dose: 150 mg Senna (Senna -) 2 tab PO HS [facility] Last Admin: 06/07/18 21:51 Dose: 2 tab Tamsulosin HCl (Flomax -) 0.4 mg PO DAILY@0830 [facility] Last Admin: 06/08/18 11:11 Dose: 0.4 mg Tiotropium [place] (Spiriva Respimat) 2 puff IH DAILY [facility] Last Admin: 06/07/18 09:31 Dose: Not Given Trazodone HCl (Desyrel -) 50 mg PO HS [facility] Last Admin: 06/07/18 21:51 Dose: 50 mg Zinc Sulfate (Orazinc -) 220 mg PO BID [facility] Last Admin: 06/08/18 11:09 Dose: 220 mg 67 year old gentleman with hx of CKD stage 4 (baseline Cr 1.6), Hypertension, DM , COPD, PVD s/p recent amputation who presented with fevers with JESÚS. #JESÚS on CKD stage 3 likely due to volume depletion in setting of fever and diuretic use (FeNa was 0..61%) #Fevers r/o sepsis #Hypertension #DM #PVD Renal function improved to baseline pt appears evolemic, no overt acidosis or hyperkalemia off IVF continue Abx as per ID for MRI of LE f/u cultures BP is at goal on current meds Deven Layton DO
--- NOTE | 2018-06-08 11:21 | PN ---
Progress Note, Physician Chief Complaint: patient is awake alert no distress no fever no wbc - Current Medication List Current Medications: Active Medications Albuterol/Ipratropium (Duoneb -) 1 amp NEB RQID [facility] Last Admin: 06/07/18 20:49 Dose: 1 amp Amlodipine Besylate (Norvasc -) 5 mg PO DAILY [facility] Last Admin: 06/08/18 11:09 Dose: 5 mg Ascorbic Acid (Vitamin C -) 500 mg PO BID [facility] Last Admin: 06/08/18 11:11 Dose: 500 mg Atorvastatin Calcium (Lipitor -) 20 mg PO [facility] Last Admin: 06/07/18 21:51 Dose: 20 mg Clopidogrel Bisulfate (Plavix -) 75 mg PO DAILY [facility] Last Admin: 06/08/18 11:09 Dose: 75 mg Collagenase (Santyl -) 1 applic TP DAILY [facility]; Protocol Last Admin: 06/07/18 21:57 Dose: 1 applic Docusate Sodium (Colace -) 300 mg PO [facility] Last Admin: 06/07/18 21:51 Dose: 300 mg Ergocalciferol (Drisdol -) 50,000 unit PO Mo@1000 [facility] Ferrous Sulfate (Feosol -) 325 mg PO BID [facility] Last Admin: 06/08/18 11:11 Dose: 325 mg Guaifenesin (Robitussin -) 20 ml PO Q8H PRN PRN Reason: COUGH/CHEST CONGESTION Guaifenesin (Mucinex -) 1,200 mg PO BID [facility] Last Admin: 06/08/18 11:11 Dose: 1,200 mg Heparin Sodium (Porcine) (Heparin -) 5,000 unit SQ BID [facility] Last Admin: 06/08/18 11:11 Dose: 5,000 unit Piperacillin Sod/Tazobactam (Sod 2.25 gm/ Dextrose) 50 mls @ 100 mls/hr IVPB Q8H-IV [facility]; Protocol Last Admin: 06/08/18 11:12 Dose: 100 mls/hr Insulin Aspart (Novolog Vial Sliding Scale -) 1 vial SQ ACHS [facility]; Protocol Last Admin: 06/08/18 06:10 Dose: Not Given Insulin Detemir (Levemir Vial) 32 units SQ AM [facility] Last Admin: 06/08/18 06:13 Dose: 32 unit Memantine (Namenda -) 5 mg PO BID [facility] Last Admin: 06/08/18 11:09 Dose: 5 mg Metoprolol Succinate (Toprol Xl -) 25 mg PO DAILY [facility] Last Admin: 06/08/18 11:09 Dose: 25 mg Oxycodone HCl (Roxicodone -) 10 mg PO Q6H PRN PRN Reason: PAIN LEVEL 7 - 10 Last Admin: 06/08/18 02:19 Dose: 10 mg Pantoprazole Sodium (Protonix -) 40 mg PO DAILY [facility] Last Admin: 06/08/18 11:09 Dose: 40 mg Polyethylene Glycol (Miralax (For Daily Use) -) 17 gm PO DAILY [facility] Last Admin: 06/08/18 11:11 Dose: 17 grams Pramipexole Dihydrochloride (Mirapex -) 0.5 mg PO [facility] Last Admin: 06/07/18 21:52 Dose: 0.5 mg Pregabalin (Lyrica -) 150 mg PO BID [facility] Last Admin: 06/08/18 11:11 Dose: 150 mg Senna (Senna -) 2 tab PO [facility] Last Admin: 06/07/18 21:51 Dose: 2 tab Tamsulosin HCl (Flomax -) 0.4 mg PO DAILY@0830 [facility] Last Admin: 06/08/18 11:11 Dose: 0.4 mg Tiotropium [place] (Spiriva Respimat) 2 puff IH DAILY [facility] Last Admin: 06/07/18 09:31 Dose: Not Given Trazodone HCl (Desyrel -) 50 mg PO HS [facility] Last Admin: 06/07/18 21:51 Dose: 50 mg Zinc Sulfate (Orazinc -) 220 mg PO BID [facility] Last Admin: 06/08/18 11:09 Dose: 220 mg - Objective Vital Signs: Vital Signs Temperature 98.3 F 06/08/18 06:00 Pulse Rate 66 06/08/18 06:00 Respiratory Rate 18 06/08/18 06:00 Blood Pressure 105/53 L 06/08/18 06:00 O2 Sat by Pulse Oximetry (%) 96 06/07/18 19:43 Constitutional: Yes: Calm Cardiovascular: Yes: Regular Rate and Rhythm, S1, S2 Respiratory: Yes: CTA Bilaterally Gastrointestinal: Yes: Normal Bowel Sounds, Soft Extremities: Yes: Other (s/p TMA covered dressing) Labs: CBC, BMP 06/08/18 06:00 06/08/18 06:00 INR, PTT INR 1.26 (0.83-1.09) H 06/05/18 19:25 Problem List - Problems (1) Fever Assessment/Plan: blood and wound cultures- no growth ID eval noted on zosyn foot wound- podiatry xray of foot show soft itssue swelling will get MRI of foot to r.o osteo Code(s): R50.9 - FEVER, UNSPECIFIED Qualifiers: Fever type: unspecified Qualified Code(s): R50.9 - Fever, unspecified (2) JESÚS (acute kidney injury) Assessment/Plan: renal consult appreciate ivf now dc hold arb and diuretic monitor Cr Code(s): N17.9 - ACUTE KIDNEY FAILURE, UNSPECIFIED (3) Diabetes mellitus Assessment/Plan: bgm sliding scale hgba1c 8.8 levemir Code(s): E11.9 - TYPE 2 DIABETES MELLITUS WITHOUT COMPLICATIONS Qualifiers: Diabetes mellitus type: type 2 Diabetes mellitus [facility] insulin use: unspecified [facility] insulin use status Diabetes mellitus complication status : with skin complications Diabetes mellitus complication detail: with dermatitis Qualified Code(s): E11.620 - Type 2 diabetes mellitus with diabetic dermatitis (4) COPD (chronic obstructive pulmonary disease) Assessment/Plan: bronchodilators chest ct noted - ground glass appearance noted pulm consult Code(s): J44.9 - CHRONIC OBSTRUCTIVE PULMONARY DISEASE, UNSPECIFIED Qualifiers: COPD type: COPD with acute lower respiratory infection Qualified Code(s): J44.0 - Chronic obstructive pulmonary disease with acute lower respiratory infection (5) Coronary artery disease Assessment/Plan: lipitor plavix and toprol Code(s): I25.10 - ATHSCL HEART DISEASE OF [place] CORONARY ARTERY W/O ANG PCTRS Qualifiers: Coronary Disease-Associated Artery/Lesion type: [place] artery [place] vs. transplanted heart: [place] heart Associated angina: without angina Qualified Code(s): I25.10 - Atherosclerotic heart disease of [place] coronary artery without angina pectoris
--- NOTE | 2018-06-08 11:42 | CON.PULM ---
Consult Consult Specialty:: PULMONARY Referred by:: Dr. Vincent Reason for Consultation:: cough - History of Present Illness Chief Complaint: fever History of Present Illness: 67yo male with h/o HTN, DM, hyperlipidemia, COPD, chronic hypoxic respiratory failure on home O2 who was admitted with altered mental status and fevers. No obvious source of infection but started on antibiotics with improvement. He reports a cough for the past 2 months. Cough is nonproductive but denies any wheezing or chest tightness. He does not notice any difference in time of day. Does have some nasal congestion. He is a former smoker, quit 3 years ago, started at age 14 and smoked 1-2 PPD. He reports compliance with his inhalers at home. - History Source History Provided By: Patient, Medical Record Limitations to Obtaining History: No Limitations - Past Medical History SHIPPING LEAD PERSON: Yes: CVA Cardio/Vascular: Yes: HTN, Hyperlipdemia, Other (PAD) Pulmonary: Yes: Asthma, COPD, O2 Dependent, Sleep Apnea Hepatobiliary: Yes: Cholecystitis Renal/: Yes: Renal Inusuff Infectious Disease: Yes: MRSA Musculoskeletal: Yes: Other (chronic foot ulcers) Endocrine: Yes: Diabetes Mellitus - Past Surgical History Past Surgical History: Yes: Amputation (second toe left foot), Appendectomy, Carotid Endarterectomy (right), Cholecystectomy, Hernia Repair, Stent, Tonsillectomy - Alcohol/Substance Use Hx Alcohol Use: No Number of Drinks Daily: 2 (beer, cr on weekend) History of Substance Use: reports: None - Smoking History Smoking history: Unknown if ever smoked Have you smoked in the past 12 months: No Aproximately how many cigarettes per day: 3 If you are a former smoker, when did you quit?: 2017 - Social History Usual Living Arrangement: Alone ADL: Independent (uses a walker and wheelchair, in process of getting a scooter) 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 ,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 History of Recent Travel: No Home Medications - Allergies Allergies/Adverse Reactions: Allergies Allergy/AdvReac Type Severity Reaction Status Date / Time No Known Drug Allergies Allergy Verified 05/26/18 20:15 - Home Medications Home Medications: Ambulatory Orders Tamsulosin HCl [Flomax -] 0.4 mg PO DAILY 05/11/16 traZODone HCL [Desyrel -] 50 mg PO HS 05/11/16 Metoprolol Succinate [Toprol XL -] 25 mg PO DAILY tab.sr.24h 07/19/16 Amlodipine Besylate [Norvasc -] 5 mg PO DAILY tablet 10/29/16 Pantoprazole Sodium [Protonix] 40 mg PO DAILY 01/25/17 Furosemide [Lasix] 20 mg PO DAILY #0 mg 03/08/17 Pregabalin [Lyrica -] 150 mg PO BID 05/11/17 Ferrous Sulfate [Feosol] 325 mg PO BID ud 11/11/17 Ergocalciferol (Vitamin D2) [Drisdol] 1 tab PO WEEKLY 01/11/18 Pramipexole Di-HCl [Mirapex] 0.5 mg PO DAILY 01/11/18 Albuterol 2.5/Ipratropium 0.5 [Duoneb -] 1 amp NEB RQID amp 03/02/18 Polyethylene Glycol 3350 [Miralax 119 gm Btl -] 17 gm PO DAILY bottle 03/02/18 Sennosides [Senna -] 2 tab PO HS tablet 03/02/18 Zinc Sulfate [Orazinc -] 220 mg PO BID capsule 03/02/18 Aclidinium [place] [Tudorza Pressair] 400 mcg IH DAILY 04/10/18 Acetaminophen 650 mg PO Q6H PRN 04/11/18 Ascorbic Acid [Vitamin C -] 500 mg PO BID 04/11/18 Atorvastatin Ca [Lipitor] 20 mg PO HS 04/11/18 Clopidogrel Bisulfate [Plavix -] 75 mg PO DAILY 04/11/18 Docusate Sodium [Colace -] 300 mg PO HS 04/11/18 Guaifenesin 400 mg PO Q8H PRN 04/11/18 Memantine HCl 5 mg PO BID 04/11/18 oxyCODONE HCL [Roxicodone -] 10 mg PO Q6H PRN MDD 4 04/11/18 Insulin (Levemir) [Levemir Vial] 32 units SQ AM 06/06/18 Family Disease History - Family Disease History Family Disease History: Diabetes: Mother (htn), CA: Father (htn, prostate CA), Other: Father, Mother Review of Systems - Review of Systems Constitutional: reports: Fever, Weakness Eyes: denies: Recent Change in Vision HENT: reports: Nasal Congestion. denies: Throat Pain Neck: denies: Stiffness, Tenderness Cardiovascular: denies: Chest Pain, Shortness of Breath Respiratory: reports: Cough. denies: Hemoptysis, Wheezing Gastrointestinal: denies: Abdominal Pain, Nausea, Vomiting Genitourinary: denies: Dysuria, Hematuria Neurological: denies: Dizziness, Headache Physical Exam Vital Sings: Vital Signs Temperature 98.3 F 06/08/18 06:00 Pulse Rate 66 06/08/18 06:00 Respiratory Rate 18 06/08/18 06:00 Blood Pressure 105/53 L 06/08/18 06:00 O2 Sat by Pulse Oximetry (%) 96 06/07/18 19:43 Constitutional: Yes: Calm Eyes: Yes: Conjunctiva Clear, EOM Intact HENT: Yes: Atraumatic, Normocephalic Neck: Yes: Supple, Trachea Midline Cardiovascular: Yes: Regular Rate and Rhythm Respiratory: Yes: Diminished (decreased breath sounds at the bases) ...Clubbing: No Gastrointestinal: Yes: Normal Bowel Sounds, Soft. No: Tenderness Edema: No Neurological: Yes: Alert, Oriented Labs: CBC, BMP 06/08/18 06:00 06/08/18 06:00 Imaging - Results Chest X-ray: Report Reviewed, Image Reviewed Cat Scan: Report Reviewed, Image Reviewed (apical interstitial thickening) Problem List - Problems (1) Chronic cough Code(s): R05 - COUGH (2) Acute kidney injury superimposed on CKD Code(s): N17.9 - ACUTE KIDNEY FAILURE, UNSPECIFIED; N18.9 - CHRONIC KIDNEY DISEASE, UNSPECIFIED (3) COPD (chronic obstructive pulmonary disease) Code(s): J44.9 - CHRONIC OBSTRUCTIVE PULMONARY DISEASE, UNSPECIFIED Qualifiers: COPD type: COPD with acute lower respiratory infection Qualified Code(s): J44.0 - Chronic obstructive pulmonary disease with acute lower respiratory infection (4) Diabetes mellitus Code(s): E11.9 - TYPE 2 DIABETES MELLITUS WITHOUT COMPLICATIONS Qualifiers: Diabetes mellitus type: type 2 Diabetes mellitus manager terminal insulin use: unspecified [facility] insulin use status Diabetes mellitus complication status : with skin complications Diabetes mellitus complication detail: with dermatitis Qualified Code(s): E11.620 - Type 2 diabetes mellitus with diabetic dermatitis (5) Hyperlipidemia Code(s): E78.5 - HYPERLIPIDEMIA, UNSPECIFIED Qualifiers: Hyperlipidemia type: pure hypercholesterolemia Qualified Code(s): E78.00 - Pure hypercholesterolemia, unspecified (6) Hypertension Code(s): I10 - ESSENTIAL (PRIMARY) HYPERTENSION Qualifiers: Hypertension type: essential hypertension Qualified Code(s): I10 - Essential (primary) hypertension Assessment/Plan Fever of unclear source COPD Chronic Cough likely Chronic Bronchitis Chronic Hypoxic Respiratory Failure Acute on Chronic Renal Failure HTN DM Hyperlipidemia - will start Symbicort 160/4.5mcg 2 puffs BID - continue duonebs - add fluticasone nasal sprays - O2 to keep SpO2 >90% - will need outpt PFTs and imaging to f/u paratracheal node - DVT prophylaxis Thank you for this consult Chris Patino MD
[2018-06-08] MEDS: TIOTROPIUM BROMIDE 2.5 MCG (SPIRIVA) RESPIMAT INHALER IH SCH (11:56)
[2018-06-08] MEDS: ALLOPURINOL 300 MG TABLET (FP) PO SCH (13:07)
[2018-06-08] MEDS: COLLAGENASE CLOSTRIDIUM HIST. 30 GRAMS TUBE TP SCH (15:00)
[2018-06-08] MEDS: PRAMIPEXOLE DIHYDROCHLORIDE 0.5 MG TABLET PO SCH ×2 (15:43→21:24)
[2018-06-08] MEDS: FLUTICASONE PROP 0.05% 16 GM NASAL SPRAY NS SCH ×2 (15:44→21:24)
[2018-06-08] MEDS: BUDESONIDE/FORMETEROL FUMARATE 160/4.5 mcg INHALER IH SCH ×2 (15:45→21:25)
--- NOTE | 2018-06-08 15:51 | PN ---
Progress Note (short form) - Note Progress Note: Surgery 67yo male well known by vascular service presented with fever 101.5 and overall weakness Pt denies any additional acute chief complaint. Pt has a h/o poorly healing diabetic foot wounds with secondary sepsis. He is s/p open transmetatarsal amputation right foot on [address] Sanders. He was discharged from SNF on 31 May 2018 to home, where he lives with his girlfriend. He c/o right heel and left foot pain over plantar aspect. He denies any CP, SOB, N/V/ or chills associated with onset of fevers. Vital Signs Temp 97.5 F L 06/08/18 14:06 Pulse 70 06/08/18 14:06 Resp 18 06/08/18 14:06 BP 149/81 06/08/18 14:06 Pulse Ox 96 06/07/18 19:43 Intake & Output 06/07/18 06/08/18 06/08/18 23:59 11:59 23:59 Intake Total 250 100 Output Total 300 700 Balance -50 -600 Weight 179 lb 5 oz Intake: IVPB 100 Oral 250 Output: Urine 300 700 Void 300 700 Other: Voiding Method Urinal Urinal Bowel Movement No No Height 5 ft 7 in Body Mass Index (BMI) 28.0 Weight Measurement Method Standing Scale CBC, BMP 06/08/18 06:00 06/08/18 06:00 PE: A&Ox3, NAD unlabored resp on RA Right LE, compatments soft, supple and non-tender to palpation. leg and foot warm to touch, s/p TMA with Beefy red base, clean well defined boarders with surrounding tissue intact, no evidence of erythema, edema, collection or active d/c, Heel intact with no area of early breakdown. Left LE compartments soft, supple and non-tender to palpation, foot and leg warm to touch. no areas of skin breakdown seen with the exception of small 1x1cm acute on chronic ulcer over plantar surface with no tunneling, ttp surrounding ulcer with no evidence of infection, collection or d/c. bedside doppler with + signal over DP and PT pulse. Problem List - Problems (1) Diabetic foot ulcer Assessment/Plan: S/p Right TMA with left acute on chronic DM foot ulcer, no evidence for surgical vascular intervention. Agree with Podiaty treatment plan. 1) Santly to b/l LE wounds daily 2) Offload pressure to Right TMA and Left heel/plantar surface 3) IV ABX per ID 4) f/u with Tommy as outpatient. Evaluation and plan discussed with Dr Solano Code(s): E11.621 - TYPE 2 DIABETES MELLITUS WITH FOOT ULCER; L97.509 - NON- PRESSURE CHRONIC ULCER OTH PRT UNSP FOOT W UNSP SEVERITY
--- NOTE | 2018-06-08 16:53 | PN ---
Progress Note (short form) - Note Progress Note: FUV b/l feet. vss Tmax 97.8 wound culture gram negative, +granulating right foot, +grade 0-1 left foot dm with wounds pvd neuropathy Continue santyl. Awaiting MRI results. Will follow.
[2018-06-08] MEDS ORDERED: INSULIN (NOVOLOG) ASPART 100 UNITS/ML 10ML VIAL ONE (17:32)
[2018-06-08] MEDS: traZODone HCL 50 MG TABLET (FP) PO SCH (21:23)
[2018-06-08] MEDS: DOCUSATE SODIUM 100 MG CAPSULE (FP) PO SCH (21:23)
[2018-06-08] MEDS: SENNOSIDES 8.6MG TABLET (FP) PO SCH (21:23)
[2018-06-08] MEDS: ATORVASTATIN CA 20 MG TABLET (FP) PO SCH (21:24)
[2018-06-09] MEDS ORDERED: PIPERACILLIN/TAZOBACTAM 2.25 GM VIAL IVPB ONE ×3 (02:17→16:43)
[2018-06-09] MEDS ORDERED: DEXTROSE 5%-WATER - 50 ML IVPB ONE ×3 (02:17→16:43)
[2018-06-09] MEDS: PIPERACILLIN/TAZOB 2.25 GM 2.25 GM in DEXTROSE 5%-WATER - 50 ML IVPB SCH ×3 (02:26→18:27)
[2018-06-09] MEDS: INSULIN (LEVEMIR) 100 UNITS/ML UNITS SQ SCH (06:42)
[2018-06-09] MEDS: INSULIN SLIDING SCALE (NOVOLOG) 1 VIAL SQ SCH ×4 (06:42→21:23)
[2018-06-09 08:06] LABS: SERUM IRON SATURATION 28 % (15-55); TOTAL IRON BINDING CAPACITY 208 ug/dL (250-450); UIBC 149 ug/dL (111-343)
[2018-06-09 08:16] LABS: EOS % 7.2 % (0-4.5); HEMATOCRIT 35.9 % (35.4-49); HEMOGLOBIN 11.2 GM/dL (11.7-16.9); LYMPH % 24.4 % (8-40); MCH 22.6 pg (25.7-33.7); MCHC 31.2 g/dl (32.0-35.9); MEAN CELL VOLUME 72.4 fl (80-96); MEAN PLT VOLUME 9.6 fl (7.5-11.1); MONO % 7.6 % (3.8-10.2); NEUT % 59.8 % (42.8-82.8); PLATELET COUNT 197 K/MM3 (134-434); RBC 4.96 M/mm3 (4.00-5.60); RDW 18.1 % (11.9-15.9)
[2018-06-09] MEDS: ALBUTEROL SO4 2.5/IPRATROPIUM 0.5 INH SOL 3 ML VIAL.NEB. NEB SCH ×4 (08:20→20:22)
[2018-06-09 08:26] LABS: ALBUMIN 2.7 g/dl (3.4-5.0); ALK PHOS 169 U/L (45-117); ANION GAP 11 MMOL/L (8-16); BILIRUBIN,TOTAL 0.3 mg/dL (0.2-1); BLOOD UREA NITROGEN 24 mg/dL (7-18); CHLORIDE 106 mmol/L (98-107); CO2 21 mmol/L (21-32); CREATININE 1.6 mg/dL (0.55-1.3); GLUCOSE,RANDOM 235 mg/dL (74-106); MAGNESIUM 1.7 mg/dL (1.8-2.4); SGOT/AST 9 U/L (15-37); SGPT/ALT 11 U/L (13-61); SODIUM 138 mmol/L (136-145)
[2018-06-09] MEDS ORDERED: PT OWN MED DRAWER 7, Y5N ONE (09:35)
[2018-06-09] MEDS: PRAMIPEXOLE DIHYDROCHLORIDE 0.5 MG TABLET PO SCH ×2 (10:18→21:22)
[2018-06-09] MEDS: PREGABALIN 75 MG CAPSULE PO SCH ×2 (10:18→21:21)
[2018-06-09] MEDS: PANTOPRAZOLE 40 MG TABLET (FP) PO SCH (10:18)
[2018-06-09] MEDS: metoPROLOL SUCCINATE 25 MG TAB.SR.24H (FP) PO SCH (10:18)
[2018-06-09] MEDS: MEMANTINE HCL 5 MG TABLET (UD) PO SCH ×2 (10:18→21:22)
[2018-06-09] MEDS: TAMSULOSIN HCL 0.4 MG CAP PO SCH (10:18)
[2018-06-09] MEDS: guaiFENesin 600 MG TABLET.ER (FP) PO SCH ×2 (10:18→21:21)
[2018-06-09] MEDS: HEPARIN NA (PORCINE) 5,000 UNITS/ML 1ML VIAL SQ SCH ×2 (10:18→21:22)
[2018-06-09] MEDS: ASCORBIC ACID 500 MG TABLET (FP) PO SCH ×2 (10:23→21:21)
[2018-06-09] MEDS: amLODIPine BESYLATE 5 MG TABLET (FP) PO SCH (10:23)
[2018-06-09] MEDS: ALLOPURINOL 300 MG TABLET (FP) PO SCH (10:23)
[2018-06-09] MEDS: ZINC SULFATE 220 MG CAPSULE (FP) PO SCH ×2 (10:23→21:24)
[2018-06-09] MEDS: FERROUS SO4 325 MG TABLET (FP) PO SCH ×2 (10:23→21:20)
[2018-06-09] MEDS: CLOPIDOGREL BISULFATE 75 MG TABLET (FP) PO SCH (10:23)
[2018-06-09] MEDS: BUDESONIDE/FORMETEROL FUMARATE 160/4.5 mcg INHALER IH SCH ×2 (10:27→21:24)
[2018-06-09] MEDS: FLUTICASONE PROP 0.05% 16 GM NASAL SPRAY NS SCH ×2 (10:27→21:22)
[2018-06-09] MEDS: POLYETHYLENE GLYCOL 3350 119 GM BTL PO SCH (11:29)
--- NOTE | 2018-06-09 11:32 | PN ---
Progress Note, Physician Chief Complaint: The patient seen and examined sitting by his bed. Denies any new complains. Right foot dressing in place. Minimal pain reported. History of Present Illness: 67 year old gentleman with hx of CKD stage 4 (baseline Cr 1.6), Hypertension, DM , COPD, PVD s/p recent amputation who presented with fevers with JESÚS. - Current Medication List Current Medications: Active Medications Albuterol/Ipratropium (Duoneb -) 1 amp NEB RQID [facility] [place] Last Admin: 06/09/18 08:20 Dose: 1 amp Allopurinol (Zyloprim -) 300 mg PO DAILY [facility] [place] Last Admin: 06/09/18 10:23 Dose: 300 mg Amlodipine Besylate (Norvasc -) 5 mg PO DAILY [facility] [place] Last Admin: 06/09/18 10:23 Dose: 5 mg Ascorbic Acid (Vitamin C -) 500 mg PO BID [facility] [place] Last Admin: 06/09/18 10:23 Dose: 500 mg Atorvastatin Calcium (Lipitor -) 20 mg PO HS [facility] [place] Last Admin: 06/08/18 21:24 Dose: 20 mg Budesonide/Formoterol Fumarate (Symbicort 160/4.5mcg -) 2 puff IH BID [facility] [place] Last Admin: 06/09/18 10:27 Dose: 2 puff Clopidogrel Bisulfate (Plavix -) 75 mg PO DAILY [facility] [place] Last Admin: 06/09/18 10:23 Dose: 75 mg Collagenase (Santyl -) 1 applic TP DAILY [facility]; Protocol Last Admin: 06/08/18 15:00 Dose: 1 applic Docusate Sodium (Colace -) 300 mg PO [facility] Last Admin: 06/08/18 21:23 Dose: 300 mg Ergocalciferol (Drisdol -) 50,000 unit PO Mo@1000 [facility] [place] Ferrous Sulfate (Feosol -) 325 mg PO BID [facility] [place] Last Admin: 06/09/18 10:23 Dose: 325 mg Fluticasone Propionate (Flonase -) 1 spray NS BID [facility] [place] Last Admin: 06/09/18 10:27 Dose: 1 spray Guaifenesin (Robitussin -) 20 ml PO Q8H PRN PRN Reason: COUGH/CHEST CONGESTION Guaifenesin (Mucinex -) 1,200 mg PO BID [facility] [place] Last Admin: 06/09/18 10:18 Dose: 1,200 mg Heparin Sodium (Porcine) (Heparin -) 5,000 unit SQ BID [facility] [place] Last Admin: 06/09/18 10:18 Dose: 5,000 unit Piperacillin Sod/Tazobactam (Sod 2.25 gm/ Dextrose) 50 mls @ 100 mls/hr IVPB Q8H-IV [facility] [place]; Protocol Last Admin: 06/09/18 10:23 Dose: 100 mls/hr Insulin Aspart (Novolog Vial Sliding Scale -) 1 vial SQ ACHS [facility] [place]; Protocol Last Admin: 06/09/18 06:42 Dose: 4 unit Insulin Detemir (Levemir Vial) 32 units SQ AM [facility] [place] Last Admin: 06/09/18 06:42 Dose: 32 unit Memantine (Namenda -) 5 mg PO BID [facility] [place] Last Admin: 06/09/18 10:18 Dose: 5 mg Metoprolol Succinate (Toprol Xl -) 25 mg PO DAILY [facility] [place] Last Admin: 06/09/18 10:18 Dose: 25 mg Oxycodone HCl (Roxicodone -) 10 mg PO Q6H PRN PRN Reason: PAIN LEVEL 7 - 10 Last Admin: 06/08/18 21:34 Dose: 10 mg Pantoprazole Sodium (Protonix -) 40 mg PO DAILY [facility] [place] Last Admin: 06/09/18 10:18 Dose: 40 mg Polyethylene Glycol (Miralax (For Daily Use) -) 17 gm PO DAILY [facility] [place] Last Admin: 06/08/18 11:11 Dose: 17 grams Pramipexole Dihydrochloride (Mirapex -) 0.5 mg PO BID [facility] [place] Last Admin: 06/09/18 10:18 Dose: 0.5 mg Pregabalin (Lyrica -) 150 mg PO BID [facility] [place] Last Admin: 06/09/18 10:18 Dose: 150 mg Senna (Senna -) 2 tab PO HS [facility] [place] Last Admin: 06/08/18 21:23 Dose: 2 tab Tamsulosin HCl (Flomax -) 0.4 mg PO DAILY@0830 [facility] [place] Last Admin: 06/09/18 10:18 Dose: 0.4 mg Trazodone HCl (Desyrel -) 50 mg PO HS [facility] [place] Last Admin: 06/08/18 21:23 Dose: 50 mg Zinc Sulfate (Orazinc -) 220 mg PO BID [facility] [place] Last Admin: 06/09/18 10:23 Dose: 220 mg - Objective Vital Signs: Vital Signs Temperature 97.7 F 06/09/18 06:00 Pulse Rate 68 06/09/18 06:00 Respiratory Rate 18 06/09/18 06:00 Blood Pressure 110/62 06/09/18 06:00 O2 Sat by Pulse Oximetry (%) 95 06/08/18 21:00 Constitutional: Yes: No Distress Eyes: Yes: Conjunctiva Clear HENT: Yes: Normocephalic Neck: Yes: Trachea Midline Cardiovascular: Yes: Pulse Irregular, S1, S2 Respiratory: Yes: CTA Bilaterally, Diminished Gastrointestinal: Yes: Normal Bowel Sounds, Soft Genitourinary: No: CVA Tenderness - Left, CVA Tenderness - Right Extremities: Yes: Amputation Edema: No Edema: LLE: Trace, RLE: Trace Neurological: Yes: Alert Psychiatric: Yes: Alert Labs: CBC, BMP 06/09/18 06:00 06/09/18 06:00 INR, PTT INR 1.26 (0.83-1.09) H 06/05/18 19:25 Problem List - Problems (1) JESÚS (acute kidney injury) Code(s): N17.9 - ACUTE KIDNEY FAILURE, UNSPECIFIED (2) Fever Code(s): R50.9 - FEVER, UNSPECIFIED Qualifiers: Fever type: unspecified Qualified Code(s): R50.9 - Fever, unspecified (3) Acute kidney injury superimposed on CKD Code(s): N17.9 - ACUTE KIDNEY FAILURE, UNSPECIFIED; N18.9 - CHRONIC KIDNEY DISEASE, UNSPECIFIED (4) Arterial occlusion, lower extremity Code(s): I74.3 - EMBOLISM AND THROMBOSIS OF ARTERIES OF THE LOWER EXTREMITIES (5) Chronic osteomyelitis Code(s): M86.60 - OTHER CHRONIC OSTEOMYELITIS, UNSPECIFIED SITE (6) Diabetic foot infection Code(s): E11.69 - TYPE 2 DIABETES MELLITUS WITH OTHER SPECIFIED COMPLICATION; L08.9 - LOCAL INFECTION OF THE SKIN AND SUBCUTANEOUS TISSUE, UNSP (7) Type 2 diabetes mellitus with diabetic peripheral angiopathy with gangrene Code(s): E11.52 - TYPE 2 DIABETES W DIABETIC PERIPHERAL ANGIOPATHY W GANGRENE (8) Coronary artery disease Code(s): I25.10 - ATHSCL HEART DISEASE OF [place] CORONARY ARTERY W/O ANG PCTRS Qualifiers: Coronary Disease-Associated Artery/Lesion type: [place] artery [place] vs. transplanted heart: [place] heart Associated angina: without angina Qualified Code(s): I25.10 - Atherosclerotic heart disease of [place] coronary artery without angina pectoris (9) Hyperlipidemia Code(s): E78.5 - HYPERLIPIDEMIA, UNSPECIFIED Qualifiers: Hyperlipidemia type: pure hypercholesterolemia Qualified Code(s): E78.00 - Pure hypercholesterolemia, unspecified (10) Hypertension Code(s): I10 - ESSENTIAL (PRIMARY) HYPERTENSION Qualifiers: Hypertension type: essential hypertension Qualified Code(s): I10 - Essential (primary) hypertension (11) Peripheral artery disease Code(s): I73.9 - PERIPHERAL VASCULAR DISEASE, UNSPECIFIED Assessment/Plan 67 year old gentleman with hx of CKD stage 4 (baseline Cr 1.6), Hypertension, DM , COPD, PVD s/p recent amputation who presented with fevers with JESÚS. Acute Kidney Injury, related to multifactorial factors including sepsis, hemodynamic factors that reduce renal perfusion. Will continue Abx as ordered . Trend the renal functions. Will follow with you. Yuli Rodriguez MD
[2018-06-09] MEDS ORDERED: MAGNESIUM SULF 50% (8.12 MEQ/2 ML-1 GM VIAL) IVPB ONE (12:46)
--- NOTE | 2018-06-09 12:53 | PN ---
Progress Note, Physician Chief Complaint: patient seen and examined on iv abx MRI shows osteo - Current Medication List Current Medications: Active Medications Albuterol/Ipratropium (Duoneb -) 1 amp NEB RQID [facility] Last Admin: 06/09/18 08:20 Dose: 1 amp Allopurinol (Zyloprim -) 300 mg PO DAILY [facility] Last Admin: 06/09/18 10:23 Dose: 300 mg Amlodipine Besylate (Norvasc -) 5 mg PO DAILY [facility] Last Admin: 06/09/18 10:23 Dose: 5 mg Ascorbic Acid (Vitamin C -) 500 mg PO BID [facility] Last Admin: 06/09/18 10:23 Dose: 500 mg Atorvastatin Calcium (Lipitor -) 20 mg PO HS [facility] Last Admin: 06/08/18 21:24 Dose: 20 mg Budesonide/Formoterol Fumarate (Symbicort 160/4.5mcg -) 2 puff IH BID [facility] Last Admin: 06/09/18 10:27 Dose: 2 puff Clopidogrel Bisulfate (Plavix -) 75 mg PO DAILY [facility] Last Admin: 06/09/18 10:23 Dose: 75 mg Collagenase (Santyl -) 1 applic TP DAILY [facility]; Protocol Last Admin: 06/08/18 15:00 Dose: 1 applic Docusate Sodium (Colace -) 300 mg PO HS [facility] Last Admin: 06/08/18 21:23 Dose: 300 mg Ergocalciferol (Drisdol -) 50,000 unit PO Mo@1000 [facility] Ferrous Sulfate (Feosol -) 325 mg PO BID [facility] Last Admin: 06/09/18 10:23 Dose: 325 mg Fluticasone Propionate (Flonase -) 1 spray NS BID [facility] Last Admin: 06/09/18 10:27 Dose: 1 spray Guaifenesin (Robitussin -) 20 ml PO Q8H PRN PRN Reason: COUGH/CHEST CONGESTION Guaifenesin (Mucinex -) 1,200 mg PO BID [facility] Last Admin: 06/09/18 10:18 Dose: 1,200 mg Heparin Sodium (Porcine) (Heparin -) 5,000 unit SQ BID [facility] Last Admin: 06/09/18 10:18 Dose: 5,000 unit Piperacillin Sod/Tazobactam (Sod 2.25 gm/ Dextrose) 50 mls @ 100 mls/hr IVPB Q8H-IV [facility]; Protocol Last Admin: 06/09/18 10:23 Dose: 100 mls/hr Insulin Aspart (Novolog Vial Sliding Scale -) 1 vial SQ ACHS [facility]; Protocol Last Admin: 06/09/18 11:26 Dose: 4 unit Insulin Detemir (Levemir Vial) 32 units SQ AM [facility] Last Admin: 06/09/18 06:42 Dose: 32 unit Magnesium Sulfate (Magnesium Sulfate) 1 gm IVPB ONCE ONE Stop: 06/09/18 12:47 Memantine (Namenda -) 5 mg PO BID [facility] Last Admin: 06/09/18 10:18 Dose: 5 mg Metoprolol Succinate (Toprol Xl -) 25 mg PO DAILY [facility] Last Admin: 06/09/18 10:18 Dose: 25 mg Oxycodone HCl (Roxicodone -) 10 mg PO Q6H PRN PRN Reason: PAIN LEVEL 7 - 10 Last Admin: 06/08/18 21:34 Dose: 10 mg Pantoprazole Sodium (Protonix -) 40 mg PO DAILY [facility] Last Admin: 06/09/18 10:18 Dose: 40 mg Polyethylene Glycol (Miralax (For Daily Use) -) 17 gm PO DAILY [facility] Last Admin: 06/09/18 11:29 Dose: 17 grams Pramipexole Dihydrochloride (Mirapex -) 0.5 mg PO BID [facility] Last Admin: 06/09/18 10:18 Dose: 0.5 mg Pregabalin (Lyrica -) 150 mg PO BID [facility] Last Admin: 06/09/18 10:18 Dose: 150 mg Senna (Senna -) 2 tab PO [facility] Last Admin: 06/08/18 21:23 Dose: 2 tab Tamsulosin HCl (Flomax -) 0.4 mg PO DAILY@0830 [facility] Last Admin: 06/09/18 10:18 Dose: 0.4 mg Trazodone HCl (Desyrel -) 50 mg PO HS [facility] Last Admin: 06/08/18 21:23 Dose: 50 mg Zinc Sulfate (Orazinc -) 220 mg PO BID [facility] Last Admin: 06/09/18 10:23 Dose: 220 mg - Objective Vital Signs: Vital Signs Temperature 97.7 F 06/09/18 06:00 Pulse Rate 68 06/09/18 06:00 Respiratory Rate 18 06/09/18 06:00 Blood Pressure 110/62 06/09/18 06:00 O2 Sat by Pulse Oximetry (%) 95 06/08/18 21:00 Constitutional: Yes: Calm Neck: Yes: Trachea Midline Cardiovascular: Yes: Regular Rate and Rhythm, S1, S2 Respiratory: Yes: CTA Bilaterally Gastrointestinal: Yes: Normal Bowel Sounds, Soft Extremities: Yes: Other (s/p TMA wound covered with dressing) Neurological: Yes: Alert, Oriented Labs: CBC, BMP 06/09/18 06:00 06/09/18 06:00 INR, PTT INR 1.26 (0.83-1.09) H 06/05/18 19:25 Problem List - Problems (1) Fever Assessment/Plan: blood and wound cultures- no growth wound cultures morganella morgani Microbiology 06/06/18 17:30 Wound Gram Stain - Final 06/06/18 17:30 Wound Wound Culture - Preliminary Morganella Morganii ID eval noted on zosyn lang need picc line and 4-6 weeks of iv abx foot wound- podiatry xray of foot show soft itssue swelling -MRI shows osteo ESR elevated Code(s): R50.9 - FEVER, UNSPECIFIED Qualifiers: Fever type: unspecified Qualified Code(s): R50.9 - Fever, unspecified (2) JESÚS (acute kidney injury) Assessment/Plan: renal consult appreciate ivf now dc hold arb and diuretic monitor Cr Code(s): N17.9 - ACUTE KIDNEY FAILURE, UNSPECIFIED (3) Diabetes mellitus Assessment/Plan: bgm sliding scale [id number] 8.8 levemir Code(s): E11.9 - TYPE 2 DIABETES MELLITUS WITHOUT COMPLICATIONS Qualifiers: Diabetes mellitus type: type 2 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 insulin use: unspecified nursing home insulin use status Diabetes mellitus complication status : with skin complications Diabetes mellitus complication detail: with dermatitis Qualified Code(s): E11.620 - Type 2 diabetes mellitus with diabetic dermatitis (4) COPD (chronic obstructive pulmonary disease) Assessment/Plan: bronchodilators chest ct noted - ground glass appearance noted pulm consult Code(s): J44.9 - CHRONIC OBSTRUCTIVE PULMONARY DISEASE, UNSPECIFIED Qualifiers: COPD type: COPD with acute lower respiratory infection Qualified Code(s): J44.0 - Chronic obstructive pulmonary disease with acute lower respiratory infection (5) Coronary artery disease Assessment/Plan: lipitor plavix and toprol Code(s): I25.10 - ATHSCL HEART DISEASE OF [place] CORONARY ARTERY W/O ANG PCTRS Qualifiers: Coronary Disease-Associated Artery/Lesion type: [place] artery [place] vs. transplanted heart: [place] heart Associated angina: without angina Qualified Code(s): I25.10 - Atherosclerotic heart disease of [place] coronary artery without angina pectoris Assessment/Plan will need picc line and snf placement
--- NOTE | 2018-06-09 12:57 | DS ---
Physical Examination Vital Signs: Vital Signs Temperature 97.7 F 06/09/18 06:00 Pulse Rate 68 06/09/18 06:00 Respiratory Rate 18 06/09/18 06:00 Blood Pressure 110/62 06/09/18 06:00 O2 Sat by Pulse Oximetry (%) 95 06/08/18 21:00 Constitutional: Yes: Calm Neck: Yes: Trachea Midline Cardiovascular: Yes: Regular Rate and Rhythm, S1, S2 Respiratory: Yes: CTA Bilaterally Gastrointestinal: Yes: Normal Bowel Sounds, Soft Extremities: Yes: Other (s/p TMA) Wound/Incision: Yes: Dressing Dry and Intact Neurological: Yes: Alert, Oriented Labs: CBC, BMP 06/09/18 06:00 06/09/18 06:00 Discharge Summary Reason For Visit: ACUTE KIDNEY INJURY,FEVER Current Active Problems JESÚS (acute kidney injury) (Acute) Chronic cough (Acute) Fever (Acute) Hospital Course: CHIEF COMPLAINT: fever PCP: [facility] HISTORY OF PRESENT ILLNESS: This is a 67 year old male with a significant past medical history of HTN, HLD, COPD, DM with foot wounds s/p R transmet amputation who presented to the ED with fever today. Son also noticed urinary incontinence x 1 today and decreased alertness. Pt reports feeling ok, just tired. Denies any change in his chronic cough, denies abdominal pain, N/V/D, denies runny nose, sore throat, ear ache. Denies increased pain to bilat feet or change in discharge from wounds. ER course was notable for: (1) t 101.5 (2) Cr 3.4 Recent Travel: pt denies PAST MEDICAL HISTORY: COPD(3 L O2 at home) asthma pulmonary fibrosis sleep apnea DM CAD CVA(left sided weakness) hypertension hyperlipidemia gout renal insufficiency chronic foot wounds, followed by vasc surgery PAST SURGICAL HISTORY: L second toe amputation appendectomy cholecystectomy 2014 tonsillectomy ?B/L leg stent eye surgery due to fractured orbit 07/2016 R carotid endarterectomy 2012 L femoral artery angioplasty 2014, 2015 in hospital'xeray of foot shows soft tissue swelling mri shows osteomyltits on zosyn will need picc line for iv abx renal fucntion improved hold diruetic and acer/arb Condition: Stable - Instructions Diet, Activity, Other Instructions: iv abx for 4-6 weeks weekly cbc,cmp,esr Disposition: CARE HOME FACILITY - Home Medications Comprehensive Discharge Medication List: Ambulatory Orders Tamsulosin HCl [Flomax -] 0.4 mg PO DAILY 05/11/16 traZODone HCL [Desyrel -] 50 mg PO HS 05/11/16 Metoprolol Succinate [Toprol XL -] 25 mg PO DAILY tab.sr.24h 07/19/16 Amlodipine Besylate [Norvasc -] 5 mg PO DAILY tablet 10/29/16 Pantoprazole Sodium [Protonix] 40 mg PO DAILY 01/25/17 Furosemide [Lasix] 20 mg PO DAILY #0 mg 03/08/17 Pregabalin [Lyrica -] 150 mg PO BID 05/11/17 Ferrous Sulfate [Feosol] 325 mg PO BID [facility] 11/11/17 Ergocalciferol (Vitamin D2) [Drisdol] 1 tab PO WEEKLY 01/11/18 Pramipexole Di-HCl [Mirapex] 0.5 mg PO DAILY 01/11/18 Albuterol 2.5/Ipratropium 0.5 [Duoneb -] 1 amp NEB RQID amp 03/02/18 Polyethylene Glycol 3350 [Miralax 119 gm Btl -] 17 gm PO DAILY bottle 03/02/18 Sennosides [Senna -] 2 tab PO HS tablet 03/02/18 Zinc Sulfate [Orazinc -] 220 mg PO BID capsule 03/02/18 Aclidinium Ovid [Tudorza Pressair] 400 mcg IH DAILY 04/10/18 Acetaminophen 650 mg PO Q6H PRN 04/11/18 Ascorbic Acid [Vitamin C -] 500 mg PO BID 04/11/18 Atorvastatin Ca [Lipitor] 20 mg PO HS 04/11/18 Clopidogrel Bisulfate [Plavix -] 75 mg PO DAILY 04/11/18 Docusate Sodium [Colace -] 300 mg PO HS 04/11/18 Guaifenesin 400 mg PO Q8H PRN 04/11/18 Memantine HCl 5 mg PO BID 04/11/18 oxyCODONE HCL [Roxicodone -] 10 mg PO Q6H PRN MDD 4 04/11/18 Insulin (Levemir) [Levemir Vial] 32 units SQ AM 06/06/18
--- NOTE | 2018-06-09 16:10 | PN ---
Progress Note (short form) - Note Progress Note: resting comfortably no further fevers still coughing Vital Signs Period Temp Pulse Resp BP Sys/Cintron Pulse Ox Last 24 Hr 97.7 F-98.4 F 68-73 18-20 110-142/59-86 95-98 cor-rrr lungs clear abd soft,nt ext dressing intact CBC, BMP 06/09/18 06:00 06/09/18 06:00 Microbiology 06/06/18 17:30 Wound Gram Stain - Final 06/06/18 17:30 Wound Wound Culture - Final Morganella Morganii 06/05/18 19:25 Blood - Peripheral Venous Blood Culture - Preliminary NO GROWTH OBTAINED AFTER 72 HOURS, INCUBATION TO CONTINUE FOR 2 DAYS. 06/05/18 19:25 Blood - Peripheral Venous Blood Culture - Preliminary NO GROWTH OBTAINED AFTER 72 HOURS, INCUBATION TO CONTINUE FOR 2 DAYS. 06/07/18 11:08 Urine For Antigen Detection Legionella Antigen - Final 06/07/18 11:08 Urine For Antigen Detection Streptococcus pneumoniae Antigen (M - Final 06/05/18 18:39 Urine - Urine Clean Catch Urine Culture - Final NO GROWTH OBTAINED 06/05/18 20:10 Nasopharyngeal Swab Influenza Types A,B Antigen - Final 06/05/18 20:10 Nasopharyngeal Swab - Final chest ct no infiltrate a/p fevers-no clear source-resolved sherman-resolved history of left TMA diabetes continue zosyn for now will review MRI and compare to prior MRI-?osteo Problem List - Problems (1) Fever Code(s): R50.9 - FEVER, UNSPECIFIED Qualifiers: Fever type: unspecified Qualified Code(s): R50.9 - Fever, unspecified (2) Chronic cough Code(s): R05 - COUGH (3) Wound, open, foot Code(s): S91.309A - UNSPECIFIED OPEN WOUND, UNSPECIFIED FOOT, INITIAL ENCOUNTER Qualifiers: Encounter type: initial encounter Laterality: right Qualified Code(s): S91.301A - Unspecified open wound, right foot, initial encounter (4) Acute kidney injury superimposed on CKD Code(s): N17.9 - ACUTE KIDNEY FAILURE, UNSPECIFIED; N18.9 - CHRONIC KIDNEY DISEASE, UNSPECIFIED
[2018-06-09] MEDS: COLLAGENASE CLOSTRIDIUM HIST. 30 GRAMS TUBE TP SCH (17:29)
[2018-06-09] MEDS ORDERED: INSULIN (NOVOLOG) ASPART 100 UNITS/ML 10ML VIAL ONE (18:29)
[2018-06-09] MEDS: SENNOSIDES 8.6MG TABLET (FP) PO SCH (21:20)
[2018-06-09] MEDS: traZODone HCL 50 MG TABLET (FP) PO SCH (21:20)
[2018-06-09] MEDS: DOCUSATE SODIUM 100 MG CAPSULE (FP) PO SCH (21:20)
[2018-06-09] MEDS: ATORVASTATIN CA 20 MG TABLET (FP) PO SCH (21:22)
[2018-06-09] MEDS: oxyCODONE HCL 5 MG TABLET PO PRN (21:31)
[2018-06-10] MEDS ORDERED: PIPERACILLIN/TAZOBACTAM 2.25 GM VIAL IVPB ONE ×3 (03:26→17:02)
[2018-06-10] MEDS ORDERED: DEXTROSE 5%-WATER - 50 ML IVPB ONE ×3 (03:27→17:02)
[2018-06-10] MEDS: PIPERACILLIN/TAZOB 2.25 GM 2.25 GM in DEXTROSE 5%-WATER - 50 ML IVPB SCH ×3 (04:02→17:22)
[2018-06-10] MEDS: INSULIN SLIDING SCALE (NOVOLOG) 1 VIAL SQ SCH ×3 (06:36→17:27)
[2018-06-10] MEDS: INSULIN (LEVEMIR) 100 UNITS/ML UNITS SQ SCH (06:36)
[2018-06-10] MEDS: ALBUTEROL SO4 2.5/IPRATROPIUM 0.5 INH SOL 3 ML VIAL.NEB. NEB SCH ×4 (07:55→20:40)
[2018-06-10 09:11] LABS: EOS % 8.1 % (0-4.5); HEMATOCRIT 37.8 % (35.4-49); HEMOGLOBIN 11.3 GM/dL (11.7-16.9); LYMPH % 23.5 % (8-40); MCH 21.7 pg (25.7-33.7); MCHC 29.9 g/dl (32.0-35.9); MEAN CELL VOLUME 72.7 fl (80-96); MEAN PLT VOLUME 9.2 fl (7.5-11.1); MONO % 8.2 % (3.8-10.2); NEUT % 59.2 % (42.8-82.8); PLATELET COUNT 210 K/MM3 (134-434); RDW 18.4 % (11.9-15.9); WHITE BLOOD COUNT 6.2 K/mm3 (4.0-10.0)
--- NOTE | 2018-06-10 09:21 | PN ---
Progress Note, Physician Chief Complaint: Sepsis History of Present Illness: NAD Came in with fever ESR/CRP elevated podiatry and vascular surgery consult Seen by ID Started on Zosyn - Current Medication List Current Medications: Active Medications Albuterol/Ipratropium (Duoneb -) 1 amp NEB RQID [facility] Last Admin: 06/10/18 07:55 Dose: 1 amp Allopurinol (Zyloprim -) 300 mg PO DAILY [facility] Last Admin: 06/09/18 10:23 Dose: 300 mg Amlodipine Besylate (Norvasc -) 5 mg PO DAILY [facility] Last Admin: 06/09/18 10:23 Dose: 5 mg Ascorbic Acid (Vitamin C -) 500 mg PO BID [facility] Last Admin: 06/09/18 21:21 Dose: 500 mg Atorvastatin Calcium (Lipitor -) 20 mg PO HS [facility] Last Admin: 06/09/18 21:22 Dose: 20 mg Budesonide/Formoterol Fumarate (Symbicort 160/4.5mcg -) 2 puff IH BID [facility] Last Admin: 06/09/18 21:24 Dose: 2 puff Clopidogrel Bisulfate (Plavix -) 75 mg PO DAILY [facility] Last Admin: 06/09/18 10:23 Dose: 75 mg Collagenase (Santyl -) 1 applic TP DAILY [facility]; Protocol Last Admin: 06/09/18 17:29 Dose: 1 applic Docusate Sodium (Colace -) 300 mg PO HS [facility] Last Admin: 06/09/18 21:20 Dose: 300 mg Ergocalciferol (Drisdol -) 50,000 unit PO Mo@1000 [facility] Ferrous Sulfate (Feosol -) 325 mg PO BID [facility] Last Admin: 06/09/18 21:20 Dose: 325 mg Fluticasone Propionate (Flonase -) 1 spray NS BID [facility] Last Admin: 06/09/18 21:22 Dose: 1 spray Guaifenesin (Robitussin -) 20 ml PO Q8H PRN PRN Reason: COUGH/CHEST CONGESTION Guaifenesin (Mucinex -) 1,200 mg PO BID [facility] Last Admin: 06/09/18 21:21 Dose: 1,200 mg Heparin Sodium (Porcine) (Heparin -) 5,000 unit SQ BID [facility] Last Admin: 06/09/18 21:22 Dose: 5,000 unit Piperacillin Sod/Tazobactam (Sod 2.25 gm/ Dextrose) 50 mls @ 100 mls/hr IVPB Q8H-IV [facility]; Protocol Last Admin: 06/10/18 04:02 Dose: 100 mls/hr Insulin Aspart (Novolog Vial Sliding Scale -) 1 vial SQ ACHS [facility]; Protocol Last Admin: 06/10/18 06:36 Dose: 6 unit Insulin Detemir (Levemir Vial) 32 units SQ AM [facility] Last Admin: 06/10/18 06:36 Dose: 32 unit Memantine (Namenda -) 5 mg PO BID [facility] Last Admin: 06/09/18 21:22 Dose: 5 mg Metoprolol Succinate (Toprol Xl -) 25 mg PO DAILY [facility] Last Admin: 06/09/18 10:18 Dose: 25 mg Oxycodone HCl (Roxicodone -) 10 mg PO Q6H PRN PRN Reason: PAIN LEVEL 7 - 10 Last Admin: 06/09/18 21:31 Dose: 10 mg Pantoprazole Sodium (Protonix -) 40 mg PO DAILY [facility] Last Admin: 06/09/18 10:18 Dose: 40 mg Polyethylene Glycol (Miralax (For Daily Use) -) 17 gm PO DAILY [facility] Last Admin: 06/09/18 11:29 Dose: 17 grams Pramipexole Dihydrochloride (Mirapex -) 0.5 mg PO BID [facility] Last Admin: 06/09/18 21:22 Dose: 0.5 mg Pregabalin (Lyrica -) 150 mg PO BID [facility] Last Admin: 06/09/18 21:21 Dose: 150 mg Senna (Senna -) 2 tab PO [facility] Last Admin: 06/09/18 21:20 Dose: 2 tab Tamsulosin HCl (Flomax -) 0.4 mg PO DAILY@0830 [facility] Last Admin: 06/09/18 10:18 Dose: 0.4 mg Trazodone HCl (Desyrel -) 50 mg PO HS [facility] Last Admin: 06/09/18 21:20 Dose: 50 mg Zinc Sulfate (Orazinc -) 220 mg PO BID [facility] Last Admin: 06/09/18 21:24 Dose: 220 mg - Objective Vital Signs: Vital Signs Temperature 98.4 F 06/10/18 06:00 Pulse Rate 71 06/10/18 06:00 Respiratory Rate 20 06/10/18 06:00 Blood Pressure 142/84 06/10/18 06:00 O2 Sat by Pulse Oximetry (%) 94 L 06/09/18 21:00 Constitutional: Yes: Well Nourished, No Distress, Calm Cardiovascular: Yes: Regular Rate and Rhythm Respiratory: Yes: Regular Gastrointestinal: Yes: Normal Bowel Sounds, Soft Musculoskeletal: Yes: WNL Extremities: Yes: WNL Edema: No Peripheral Pulses WNL: No Peripheral Pulses: Left Doralis Pedis: 1+, Right Dorsalis Pedis: 1+ Wound/Incision: Yes: Dressing Dry and Intact Neurological: Yes: Alert, Oriented Psychiatric: Yes: Alert, Oriented Labs: CBC, BMP 06/10/18 08:11 INR, PTT INR 1.26 (0.83-1.09) H 06/05/18 19:25 Problem List - Problems (1) Fever Assessment/Plan: -afebrile overnight -Cultures pending -ID consult -on IV Zosyn -Acetaminophen 650 mg Q6H PRN Code(s): R50.9 - FEVER, UNSPECIFIED Qualifiers: Fever type: unspecified Qualified Code(s): R50.9 - Fever, unspecified (2) Charcot foot due to diabetes mellitus Assessment/Plan: -Vascular consult -podiatry consult -ID on board -Cultures reviewed -IV abx -PICC line on Tuesday -Oxycodone 10 mg Code(s): E11.610 - TYPE 2 DIABETES MELLITUS W DIABETIC NEUROPATHIC ARTHROPATHY (3) Chronic osteomyelitis Assessment/Plan: -ESR,CRP elevated -Vascular consult -podiatry consult -ID on board -Cultures pending Code(s): M86.60 - OTHER CHRONIC OSTEOMYELITIS, UNSPECIFIED SITE (4) Acute kidney injury superimposed on CKD Assessment/Plan: -Seen by Nephrology -Trend Cr Code(s): N17.9 - ACUTE KIDNEY FAILURE, UNSPECIFIED; N18.9 - CHRONIC KIDNEY DISEASE, UNSPECIFIED (5) Chronic cough Assessment/Plan: -CT chest: Faint ill-defined groundglass appearance of mainly the upper lobes with minimal thickening of the interstitial septa that may represent mild atelectatic changes. Cannot rule out interstitial lung disease or minimal noncardiogenic pulmonary venous congestion. Cannot rule out inflammatory changes. Correlate clinically. No focal airspace disease/pneumonic infiltrates are identified. Slightly enlarged right paratracheal lymph node measuring 1.5 x 1.1 cm. Correlate clinically for further evaluation. -Pulmonary consult Code(s): R05 - COUGH (6) Sepsis Assessment/Plan: -afebrile overnight -Cultures: Microbiology 06/05/18 19:25 Blood - Peripheral Venous Blood Culture - Preliminary NO GROWTH OBTAINED AFTER 96 HOURS, INCUBATION TO CONTINUE FOR 1 DAYS. 06/05/18 19:25 Blood - Peripheral Venous Blood Culture - Preliminary NO GROWTH OBTAINED AFTER 96 HOURS, INCUBATION TO CONTINUE FOR 1 DAYS. 06/06/18 17:30 Wound Gram Stain - Final 06/06/18 17:30 Wound Wound Culture - Final Morganella Morganii 06/07/18 11:08 Urine For Antigen Detection Legionella Antigen - Final 06/07/18 11:08 Urine For Antigen Detection Streptococcus pneumoniae Antigen (M - Final 06/05/18 18:39 Urine - Urine Clean Catch Urine Culture - Final NO GROWTH OBTAINED 06/05/18 20:10 Nasopharyngeal Swab Influenza Types A,B Antigen - Final 06/05/18 20:10 Nasopharyngeal Swab - Final -ID consult -On IV Zosyn -PICC line on Tuesday -Acetaminophen 650 mg Q6H PRN Code(s): A41.9 - SEPSIS, UNSPECIFIED ORGANISM Qualifiers: Sepsis type: sepsis due to unspecified organism Qualified Code(s): A41.9 - Sepsis, unspecified organism (7) Diabetes mellitus Assessment/Plan: -BGM AC HS -Diabetic low sodium diet -Insuline: novolog and levemir -RD consult Code(s): E11.9 - TYPE 2 DIABETES MELLITUS WITHOUT COMPLICATIONS Qualifiers: Diabetes mellitus type: type 2 Diabetes mellitus mcfp insulin use: unspecified mcfp insulin use status Diabetes mellitus complication status : with skin complications Diabetes mellitus complication detail: with dermatitis Qualified Code(s): E11.620 - Type 2 diabetes mellitus with diabetic dermatitis (8) Anemia Assessment/Plan: -CKD vs chronic disease vs BRAIN -On ferrous sulfate bid for BRAIN in the past -iron profile normal -transfuse for Hg <7.0 to avoid fluid overload -monitor trend -stool OB negative Code(s): D64.9 - ANEMIA, UNSPECIFIED Qualifiers: Anemia type: unspecified type Qualified Code(s): D64.9 - Anemia, unspecified Assessment/Plan see problem list DVT prophylaxis Physical therapy
[2018-06-10 09:41] LABS: ALBUMIN 2.9 g/dl (3.4-5.0); ALK PHOS 190 U/L (45-117); ANION GAP 10 MMOL/L (8-16); BILIRUBIN,TOTAL 0.3 mg/dL (0.2-1); BLOOD UREA NITROGEN 21 mg/dL (7-18); CALCIUM 8.3 mg/dL (8.5-10.1); CHLORIDE 106 mmol/L (98-107); CO2 23 mmol/L (21-32); CREATININE 1.5 mg/dL (0.55-1.3); GLUCOSE,RANDOM 188 mg/dL (74-106); POTASSIUM 4.9 mmol/L (3.5-5.1); SGOT/AST 4 U/L (15-37); SGPT/ALT 13 U/L (13-61); SODIUM 139 mmol/L (136-145); TOT PROT 7.5 g/dl (6.4-8.2)
--- NOTE | 2018-06-10 10:10 | PN ---
Progress Note (short form) - Note Progress Note: FUV b/l feet. vss Tmax 98.4 om right stump, +granulating wound left dm with wounds pvd neuropathy om Continue santyl. HBO consult. Will discuss with Dr. Sanders whn he gets back. May consider graft of foot in OR. Will follow.
[2018-06-10] MEDS ORDERED: PT OWN MED DRAWER 7, Y5N ONE ×2 (10:35→23:02)
[2018-06-10] MEDS ORDERED: INSULIN (NOVOLOG) ASPART 100 UNITS/ML 10ML VIAL ONE (10:54)
[2018-06-10] MEDS: guaiFENesin 600 MG TABLET.ER (FP) PO SCH ×2 (10:56→22:54)
[2018-06-10] MEDS: PREGABALIN 75 MG CAPSULE PO SCH ×2 (10:56→22:56)
[2018-06-10] MEDS: MEMANTINE HCL 5 MG TABLET (UD) PO SCH ×2 (10:56→22:54)
[2018-06-10] MEDS: FERROUS SO4 325 MG TABLET (FP) PO SCH ×2 (10:56→23:29)
[2018-06-10] MEDS: TAMSULOSIN HCL 0.4 MG CAP PO SCH (10:56)
[2018-06-10] MEDS: ZINC SULFATE 220 MG CAPSULE (FP) PO SCH ×2 (10:56→22:55)
[2018-06-10] MEDS: CLOPIDOGREL BISULFATE 75 MG TABLET (FP) PO SCH (10:56)
[2018-06-10] MEDS: PRAMIPEXOLE DIHYDROCHLORIDE 0.5 MG TABLET PO SCH ×2 (10:56→23:29)
[2018-06-10] MEDS: ALLOPURINOL 300 MG TABLET (FP) PO SCH (10:57)
[2018-06-10] MEDS: metoPROLOL SUCCINATE 25 MG TAB.SR.24H (FP) PO SCH (10:57)
[2018-06-10] MEDS: PANTOPRAZOLE 40 MG TABLET (FP) PO SCH (10:57)
[2018-06-10] MEDS: BUDESONIDE/FORMETEROL FUMARATE 160/4.5 mcg INHALER IH SCH ×2 (10:57→23:29)
[2018-06-10] MEDS: amLODIPine BESYLATE 5 MG TABLET (FP) PO SCH (10:57)
[2018-06-10] MEDS: ASCORBIC ACID 500 MG TABLET (FP) PO SCH ×2 (10:57→22:55)
[2018-06-10] MEDS: HEPARIN NA (PORCINE) 5,000 UNITS/ML 1ML VIAL SQ SCH ×2 (10:58→22:56)
[2018-06-10] MEDS: FLUTICASONE PROP 0.05% 16 GM NASAL SPRAY NS SCH ×2 (10:58→23:29)
[2018-06-10] MEDS: POLYETHYLENE GLYCOL 3350 119 GM BTL PO SCH (11:02)
--- NOTE | 2018-06-10 12:34 | PN ---
Progress Note, Physician Chief Complaint: The patient seen and examined in his room. Comfortable. Denies any new complains. Right foot dressing in place. Minimal pain reported. History of Present Illness: 67 year old gentleman with hx of CKD stage 4 (baseline Cr 1.6), Hypertension, DM , COPD,PVD s/p recent amputation who presented with fevers with JESÚS. - Current Medication List Current Medications: Active Medications Albuterol/Ipratropium (Duoneb -) 1 amp NEB RQID [facility] Last Admin: 06/10/18 11:55 Dose: Not Given Allopurinol (Zyloprim -) 300 mg PO DAILY [facility] Last Admin: 06/10/18 10:57 Dose: 300 mg Amlodipine Besylate (Norvasc -) 5 mg PO DAILY [facility] Last Admin: 06/10/18 10:57 Dose: 5 mg Ascorbic Acid (Vitamin C -) 500 mg PO BID [facility] Last Admin: 06/10/18 10:57 Dose: 500 mg Atorvastatin Calcium (Lipitor -) 20 mg PO [facility] Last Admin: 06/09/18 21:22 Dose: 20 mg Budesonide/Formoterol Fumarate (Symbicort 160/4.5mcg -) 2 puff IH BID [facility] Last Admin: 06/10/18 10:57 Dose: 2 puff Clopidogrel Bisulfate (Plavix -) 75 mg PO DAILY [facility] Last Admin: 06/10/18 10:56 Dose: 75 mg Collagenase (Santyl -) 1 applic TP DAILY [facility]; Protocol Last Admin: 06/09/18 17:29 Dose: 1 applic Docusate Sodium (Colace -) 300 mg PO [facility] Last Admin: 06/09/18 21:20 Dose: 300 mg Ergocalciferol (Drisdol -) 50,000 unit PO Mo@1000 [facility] Ferrous Sulfate (Feosol -) 325 mg PO BID [facility] Last Admin: 06/10/18 10:56 Dose: 325 mg Fluticasone Propionate (Flonase -) 1 spray NS BID [facility] Last Admin: 06/10/18 10:58 Dose: 1 spray Guaifenesin (Robitussin -) 20 ml PO Q8H PRN PRN Reason: COUGH/CHEST CONGESTION Guaifenesin (Mucinex -) 1,200 mg PO BID [facility] Last Admin: 06/10/18 10:56 Dose: 1,200 mg Heparin Sodium (Porcine) (Heparin -) 5,000 unit SQ BID [facility] Last Admin: 06/10/18 10:58 Dose: 5,000 unit Piperacillin Sod/Tazobactam (Sod 2.25 gm/ Dextrose) 50 mls @ 100 mls/hr IVPB Q8H-IV [facility]; Protocol Last Admin: 06/10/18 10:58 Dose: 100 mls/hr Insulin Aspart (Novolog Vial Sliding Scale -) 1 vial SQ ACHS [facility]; Protocol Last Admin: 06/10/18 11:13 Dose: 3 unit Insulin Detemir (Levemir Vial) 32 units SQ AM [facility] Last Admin: 06/10/18 06:36 Dose: 32 unit Memantine (Namenda -) 5 mg PO BID [facility] Last Admin: 06/10/18 10:56 Dose: 5 mg Metoprolol Succinate (Toprol Xl -) 25 mg PO DAILY [facility] Last Admin: 06/10/18 10:57 Dose: 25 mg Oxycodone HCl (Roxicodone -) 10 mg PO Q6H PRN PRN Reason: PAIN LEVEL 7 - 10 Last Admin: 06/09/18 21:31 Dose: 10 mg Pantoprazole Sodium (Protonix -) 40 mg PO DAILY [facility] Last Admin: 06/10/18 10:57 Dose: 40 mg Polyethylene Glycol (Miralax (For Daily Use) -) 17 gm PO DAILY [facility] Last Admin: 06/10/18 11:02 Dose: 17 grams Pramipexole Dihydrochloride (Mirapex -) 0.5 mg PO BID [facility] Last Admin: 06/10/18 10:56 Dose: 0.5 mg Pregabalin (Lyrica -) 150 mg PO BID [facility] Last Admin: 06/10/18 10:56 Dose: 150 mg Senna (Senna -) 2 tab PO HS [facility] Last Admin: 06/09/18 21:20 Dose: 2 tab Tamsulosin HCl (Flomax -) 0.4 mg PO DAILY@0830 [facility] Last Admin: 06/10/18 10:56 Dose: 0.4 mg Trazodone HCl (Desyrel -) 50 mg PO HS [facility] Last Admin: 06/09/18 21:20 Dose: 50 mg Zinc Sulfate (Orazinc -) 220 mg PO BID [facility] Last Admin: 06/10/18 10:56 Dose: 220 mg - Objective Vital Signs: Vital Signs Temperature 98.4 F 06/10/18 06:00 Pulse Rate 71 06/10/18 06:00 Respiratory Rate 20 06/10/18 06:00 Blood Pressure 142/84 06/10/18 06:00 O2 Sat by Pulse Oximetry (%) 94 L 06/09/18 21:00 Constitutional: Yes: Well Nourished, Anxious Eyes: Yes: Conjunctiva Clear HENT: Yes: Normocephalic Neck: Yes: Trachea Midline Cardiovascular: Yes: Regular Rate and Rhythm, S1, S2 Respiratory: Yes: CTA Bilaterally Gastrointestinal: Yes: Normal Bowel Sounds, Soft Genitourinary: No: CVA Tenderness - Left, CVA Tenderness - Right Extremities: Yes: Amputation Neurological: Yes: Alert, Oriented Labs: CBC, BMP 06/10/18 08:11 06/10/18 08:11 INR, PTT INR 1.26 (0.83-1.09) H 06/05/18 19:25 Problem List - Problems (1) JESÚS (acute kidney injury) Code(s): N17.9 - ACUTE KIDNEY FAILURE, UNSPECIFIED (2) Fever Code(s): R50.9 - FEVER, UNSPECIFIED Qualifiers: Fever type: unspecified Qualified Code(s): R50.9 - Fever, unspecified (3) Acute kidney injury superimposed on CKD Code(s): N17.9 - ACUTE KIDNEY FAILURE, UNSPECIFIED; N18.9 - CHRONIC KIDNEY DISEASE, UNSPECIFIED (4) Arterial occlusion, lower extremity Code(s): I74.3 - EMBOLISM AND THROMBOSIS OF ARTERIES OF THE LOWER EXTREMITIES (5) Chronic osteomyelitis Code(s): M86.60 - OTHER CHRONIC OSTEOMYELITIS, UNSPECIFIED SITE (6) Diabetic foot infection Code(s): E11.69 - TYPE 2 DIABETES MELLITUS WITH OTHER SPECIFIED COMPLICATION; L08.9 - LOCAL INFECTION OF THE SKIN AND SUBCUTANEOUS TISSUE, UNSP (7) Type 2 diabetes mellitus with diabetic peripheral angiopathy with gangrene Code(s): E11.52 - TYPE 2 DIABETES W DIABETIC PERIPHERAL ANGIOPATHY W [place]ANGR[place] (8) Coronary artery disease Code(s): I25.10 - ATHSCL HEART DISEASE OF [place] CORONARY ARTERY W/O ANG PCTRS Qualifiers: Coronary Disease-Associated Artery/Lesion type: [place] artery [place] vs. transplanted heart: [place] heart Associated angina: without angina Qualified Code(s): I25.10 - Atherosclerotic heart disease of [place] coronary artery without angina pectoris (9) Hyperlipidemia Code(s): E78.5 - HYPERLIPIDEMIA, UNSPECIFIED Qualifiers: Hyperlipidemia type: pure hypercholesterolemia Qualified Code(s): E78.00 - Pure hypercholesterolemia, unspecified (10) Hypertension Code(s): I10 - ESSENTIAL (PRIMARY) HYPERTENSION Qualifiers: Hypertension type: essential hypertension Qualified Code(s): I10 - Essential (primary) hypertension (11) Peripheral artery disease Code(s): I73.9 - PERIPHERAL VASCULAR DISEASE, UNSPECIFIED Assessment/Plan 67 year old gentleman with hx of CKD stage 4 (baseline Cr 1.6), Hypertension, DM , COPD, PVD s/p recent amputation who presented with fevers with JESÚS. Acute Kidney Injury, related to multifactorial factors including sepsis, hemodynamic factors that reduce renal perfusion. The renal functions are improving towards his baseline. Will continue Abx as ordered . Trend the renal functions. Will follow with you. Yuli Rodriguez MD
--- NOTE | 2018-06-10 13:00 | PN ---
Progress Note (short form) - Note Progress Note: Resting in NAD. No change in cough. Intake & Output 06/07/18 06/08/18 06/09/18 06/10/18 23:59 23:59 23:59 23:59 Intake Total 515 466 8128 100 Output Total 300 1600 2050 950 Balance -50 -800 -1050 -850 Weight 179 lb 5 oz 179 lb 5 oz Last Vital Signs Temp Pulse Resp BP Pulse Ox 97.5 F L 64 18 121/76 94 L 06/10/18 10:00 06/10/18 10:00 06/10/18 10:00 06/10/18 10:00 06/09/18 21:00 Active Medications Albuterol/Ipratropium (Duoneb -) 1 amp NEB RQID [facility] Last Admin: 06/10/18 11:55 Dose: Not Given Allopurinol (Zyloprim -) 300 mg PO DAILY [facility] Last Admin: 06/10/18 10:57 Dose: 300 mg Amlodipine Besylate (Norvasc -) 5 mg PO DAILY [facility] Last Admin: 06/10/18 10:57 Dose: 5 mg Ascorbic Acid (Vitamin C -) 500 mg PO BID [facility] Last Admin: 06/10/18 10:57 Dose: 500 mg Atorvastatin Calcium (Lipitor -) 20 mg PO HS [facility] Last Admin: 06/09/18 21:22 Dose: 20 mg Budesonide/Formoterol Fumarate (Symbicort 160/4.5mcg -) 2 puff IH BID [facility] Last Admin: 06/10/18 10:57 Dose: 2 puff Clopidogrel Bisulfate (Plavix -) 75 mg PO DAILY [facility] Last Admin: 06/10/18 10:56 Dose: 75 mg Collagenase (Santyl -) 1 applic TP DAILY [facility]; Protocol Last Admin: 06/09/18 17:29 Dose: 1 applic Docusate Sodium (Colace -) 300 mg PO HS [facility] Last Admin: 06/09/18 21:20 Dose: 300 mg Ergocalciferol (Drisdol -) 50,000 unit PO Mo@1000 [facility] Ferrous Sulfate (Feosol -) 325 mg PO BID [facility] Last Admin: 06/10/18 10:56 Dose: 325 mg Fluticasone Propionate (Flonase -) 1 spray NS BID [facility] Last Admin: 06/10/18 10:58 Dose: 1 spray Guaifenesin (Robitussin -) 20 ml PO Q8H PRN PRN Reason: COUGH/CHEST CONGESTION Guaifenesin (Mucinex -) 1,200 mg PO BID [facility] Last Admin: 06/10/18 10:56 Dose: 1,200 mg Heparin Sodium (Porcine) (Heparin -) 5,000 unit SQ BID [facility] Last Admin: 06/10/18 10:58 Dose: 5,000 unit Piperacillin Sod/Tazobactam (Sod 2.25 gm/ Dextrose) 50 mls @ 100 mls/hr IVPB Q8H-IV [facility]; Protocol Last Admin: 06/10/18 10:58 Dose: 100 mls/hr Insulin Aspart (Novolog Vial Sliding Scale -) 1 vial SQ ACHS [facility]; Protocol Last Admin: 06/10/18 11:13 Dose: 3 unit Insulin Detemir (Levemir Vial) 32 units SQ AM [facility] Last Admin: 06/10/18 06:36 Dose: 32 unit Memantine (Namenda -) 5 mg PO BID [facility] Last Admin: 06/10/18 10:56 Dose: 5 mg Metoprolol Succinate (Toprol Xl -) 25 mg PO DAILY [facility] Last Admin: 06/10/18 10:57 Dose: 25 mg Oxycodone HCl (Roxicodone -) 10 mg PO Q6H PRN PRN Reason: PAIN LEVEL 7 - 10 Last Admin: 06/09/18 21:31 Dose: 10 mg Pantoprazole Sodium (Protonix -) 40 mg PO DAILY [facility] Last Admin: 06/10/18 10:57 Dose: 40 mg Polyethylene Glycol (Miralax (For Daily Use) -) 17 gm PO DAILY [facility] Last Admin: 06/10/18 11:02 Dose: 17 grams Pramipexole Dihydrochloride (Mirapex -) 0.5 mg PO BID [facility] Last Admin: 06/10/18 10:56 Dose: 0.5 mg Pregabalin (Lyrica -) 150 mg PO BID [facility] Last Admin: 06/10/18 10:56 Dose: 150 mg Senna (Senna -) 2 tab PO HS [facility] Last Admin: 06/09/18 21:20 Dose: 2 tab Tamsulosin HCl (Flomax -) 0.4 mg PO DAILY@0830 [facility] Last Admin: 06/10/18 10:56 Dose: 0.4 mg Trazodone HCl (Desyrel -) 50 mg PO HS [facility] Last Admin: 06/09/18 21:20 Dose: 50 mg Zinc Sulfate (Orazinc -) 220 mg PO BID [facility] Last Admin: 06/10/18 10:56 Dose: 220 mg Constitutional: Yes: NAD Eyes: Yes: Conjunctiva Clear, EOM Intact HENT: Yes: Atraumatic, Normocephalic Neck: Yes: Supple, Trachea Midline Cardiovascular: Yes: Regular Rate and Rhythm Respiratory: Yes: Diminished, few scattered ...Clubbing: No Gastrointestinal: Yes: Normal Bowel Sounds, Soft. No: Tenderness Edema: No Neurological: Yes: Alert, Oriented Labs: Laboratory Results - last 24 hr 06/09/18 06/09/18 06/10/18 17:25 21:16 01:00 WBC RBC Hgb Hct MCV MCH MCHC RDW Plt Count MPV Absolute Neuts (auto) Neutrophils % Lymphocytes % Monocytes % Eosinophils % Basophils % Nucleated RBC % Sodium Potassium Chloride Carbon Dioxide Anion Gap BUN Creatinine Creat Clearance w eGFR POC Glucometer 241 292 Random Glucose Calcium Magnesium Total Bilirubin AST ALT Alkaline Phosphatase Total Protein Albumin Stool Occult Blood Negative 06/10/18 06/10/18 06/10/18 06:31 08:11 08:11 WBC 6.2 RBC 5.20 Hgb 11.3 L Hct 37.8 MCV 72.7 L MCH 21.7 L MCHC 29.9 L RDW 18.4 H Plt Count 210 MPV 9.2 Absolute Neuts (auto) 3.7 Neutrophils % 59.2 Lymphocytes % 23.5 Monocytes % 8.2 Eosinophils % 8.1 H Basophils % 1.0 Nucleated RBC % 0 Sodium 139 Potassium 4.9 Chloride 106 Carbon Dioxide 23 Anion Gap 10 BUN 21 H Creatinine 1.5 H Creat Clearance w eGFR 46.68 POC Glucometer 340 Random Glucose 188 H Calcium 8.3 L Magnesium 2.0 Total Bilirubin 0.3 AST 4 L ALT 13 Alkaline Phosphatase 190 H Total Protein 7.5 Albumin 2.9 L Stool Occult Blood 06/10/18 11:12 WBC RBC Hgb Hct MCV MCH MCHC RDW Plt Count MPV Absolute Neuts (auto) Neutrophils % Lymphocytes % Monocytes % Eosinophils % Basophils % Nucleated RBC % Sodium Potassium Chloride Carbon Dioxide Anion Gap BUN Creatinine Creat Clearance w eGFR POC Glucometer 218 Random Glucose Calcium Magnesium Total Bilirubin AST ALT Alkaline Phosphatase Total Protein Albumin Stool Occult Blood Problem List - Problems (1) Chronic cough Code(s): R05 - COUGH (2) Acute kidney injury superimposed on CKD Code(s): N17.9 - ACUTE KIDNEY FAILURE, UNSPECIFIED; N18.9 - CHRONIC KIDNEY DISEASE, UNSPECIFIED (3) COPD (chronic obstructive pulmonary disease) Code(s): J44.9 - CHRONIC OBSTRUCTIVE PULMONARY DISEASE, UNSPECIFIED Qualifiers: COPD type: COPD with acute lower respiratory infection Qualified Code(s): J44.0 - Chronic obstructive pulmonary disease with acute lower respiratory infection (4) Diabetes mellitus Code(s): E11.9 - TYPE 2 DIABETES MELLITUS WITHOUT COMPLICATIONS Qualifiers: Diabetes mellitus type: type 2 Diabetes mellitus assisted insulin use: unspecified assisted insulin use status Diabetes mellitus complication status : with skin complications Diabetes mellitus complication detail: with dermatitis Qualified Code(s): E11.620 - Type 2 diabetes mellitus with diabetic dermatitis (5) Hyperlipidemia Code(s): E78.5 - HYPERLIPIDEMIA, UNSPECIFIED Qualifiers: Hyperlipidemia type: pure hypercholesterolemia Qualified Code(s): E78.00 - Pure hypercholesterolemia, unspecified (6) Hypertension Code(s): I10 - ESSENTIAL (PRIMARY) HYPERTENSION Qualifiers: Hypertension type: essential hypertension Qualified Code(s): I10 - Essential (primary) hypertension Assessment/Plan Fever of unclear source COPD Chronic Cough likely Chronic Bronchitis Chronic Hypoxic Respiratory Failure Acute on Chronic Renal Failure HTN DM Hyperlipidemia - Symbicort 160/4.5mcg 2 puffs BID - BD [place] - Fluticasone nasal sprays - O2 to keep SpO2 >90% - Will need outpatient PFTs and imaging to followup paratracheal node - DVT prophylaxis Dr Bailey
[2018-06-10] MEDS: oxyCODONE HCL 5 MG TABLET PO PRN (14:55)
[2018-06-10] MEDS: guaiFENesin 200 MG/10 ML 10 ML UNIT-DOSE CUPS PO PRN (14:56)
[2018-06-10] MEDS: COLLAGENASE CLOSTRIDIUM HIST. 30 GRAMS TUBE TP SCH (14:57)
[2018-06-10 15:09] LABS: ANISOCYTOSIS 2+; MACROCYTOSIS 0; PLATELET ESTIMATE NORMAL
[2018-06-10] MEDS: DOCUSATE SODIUM 100 MG CAPSULE (FP) PO SCH (22:53)
[2018-06-10] MEDS: ATORVASTATIN CA 20 MG TABLET (FP) PO SCH (22:54)
[2018-06-10] MEDS: traZODone HCL 50 MG TABLET (FP) PO SCH (22:54)
[2018-06-10] MEDS: SENNOSIDES 8.6MG TABLET (FP) PO SCH (22:55)
[2018-06-11] MEDS: INSULIN SLIDING SCALE (NOVOLOG) 1 VIAL SQ SCH ×5 (00:01→21:41)
[2018-06-11] MEDS: oxyCODONE HCL 5 MG TABLET PO PRN ×2 (00:03→21:53)
[2018-06-11] MEDS: guaiFENesin 200 MG/10 ML 10 ML UNIT-DOSE CUPS PO PRN ×3 (00:03→21:54)
[2018-06-11] MEDS ORDERED: PIPERACILLIN/TAZOBACTAM 2.25 GM VIAL IVPB ONE ×3 (02:07→16:55)
[2018-06-11] MEDS ORDERED: DEXTROSE 5%-WATER - 50 ML IVPB ONE ×3 (02:07→16:55)
[2018-06-11] MEDS: PIPERACILLIN/TAZOB 2.25 GM 2.25 GM in DEXTROSE 5%-WATER - 50 ML IVPB SCH ×3 (02:57→17:09)
[2018-06-11] MEDS: INSULIN (LEVEMIR) 100 UNITS/ML UNITS SQ SCH (06:25)
[2018-06-11] MEDS ORDERED: PT OWN MED DRAWER 7, Y5N ONE ×3 (06:37→21:34)
[2018-06-11] MEDS: ALBUTEROL SO4 2.5/IPRATROPIUM 0.5 INH SOL 3 ML VIAL.NEB. NEB SCH ×2 (08:15→11:45)
[2018-06-11] MEDS: TAMSULOSIN HCL 0.4 MG CAP PO SCH (08:23)
[2018-06-11] MEDS: FERROUS SO4 325 MG TABLET (FP) PO SCH ×2 (10:12→21:38)
[2018-06-11] MEDS: metoPROLOL SUCCINATE 25 MG TAB.SR.24H (FP) PO SCH (10:12)
[2018-06-11] MEDS: CLOPIDOGREL BISULFATE 75 MG TABLET (FP) PO SCH (10:12)
[2018-06-11] MEDS: PREGABALIN 75 MG CAPSULE PO SCH ×2 (10:12→21:37)
[2018-06-11] MEDS: amLODIPine BESYLATE 5 MG TABLET (FP) PO SCH (10:12)
[2018-06-11] MEDS: ASCORBIC ACID 500 MG TABLET (FP) PO SCH ×2 (10:12→21:38)
[2018-06-11] MEDS: ALLOPURINOL 300 MG TABLET (FP) PO SCH (10:12)
[2018-06-11] MEDS: guaiFENesin 600 MG TABLET.ER (FP) PO SCH ×2 (10:12→21:37)
[2018-06-11] MEDS: ZINC SULFATE 220 MG CAPSULE (FP) PO SCH ×2 (10:12→21:37)
[2018-06-11] MEDS: PANTOPRAZOLE 40 MG TABLET (FP) PO SCH (10:12)
[2018-06-11] MEDS: MEMANTINE HCL 5 MG TABLET (UD) PO SCH ×2 (10:12→21:38)
[2018-06-11] MEDS: HEPARIN NA (PORCINE) 5,000 UNITS/ML 1ML VIAL SQ SCH ×2 (10:13→21:38)
[2018-06-11] MEDS: BUDESONIDE/FORMETEROL FUMARATE 160/4.5 mcg INHALER IH SCH ×2 (10:13→21:42)
[2018-06-11] MEDS: FLUTICASONE PROP 0.05% 16 GM NASAL SPRAY NS SCH ×2 (10:13→21:39)
[2018-06-11] MEDS: POLYETHYLENE GLYCOL 3350 119 GM BTL PO SCH (10:14)
[2018-06-11] MEDS: PRAMIPEXOLE DIHYDROCHLORIDE 0.5 MG TABLET PO SCH ×2 (10:20→21:40)
[2018-06-11 10:25] LABS: ALK PHOS 228 U/L (45-117); ANION GAP 10 MMOL/L (8-16); BILIRUBIN,TOTAL 0.2 mg/dL (0.2-1); BLOOD UREA NITROGEN 25 mg/dL (7-18); CALCIUM 8.4 mg/dL (8.5-10.1); CHLORIDE 106 mmol/L (98-107); CO2 21 mmol/L (21-32); CREATININE 1.8 mg/dL (0.55-1.3); GLUCOSE,RANDOM 221 mg/dL (74-106); POTASSIUM 5.5 mmol/L (3.5-5.1); SGOT/AST 9 U/L (15-37); SGPT/ALT 13 U/L (13-61); SODIUM 138 mmol/L (136-145); TOT PROT 7.5 g/dl (6.4-8.2)
--- NOTE | 2018-06-11 10:26 | PN ---
Progress Note, Physician Chief Complaint: Sepsis History of Present Illness: NAD ESR/CRP elevated podiatry and vascular surgery consult Seen by ID Started on Zosyn Needs PICC line - Current Medication List Current Medications: Active Medications Albuterol/Ipratropium (Duoneb -) 1 amp NEB RQID [facility] Last Admin: 06/11/18 08:15 Dose: 1 amp Allopurinol (Zyloprim -) 300 mg PO DAILY [facility] Last Admin: 06/10/18 10:57 Dose: 300 mg Amlodipine Besylate (Norvasc -) 5 mg PO DAILY [facility] Last Admin: 06/10/18 10:57 Dose: 5 mg Ascorbic Acid (Vitamin C -) 500 mg PO BID [facility] Last Admin: 06/10/18 22:55 Dose: 500 mg Atorvastatin Calcium (Lipitor -) 20 mg PO HS [facility] Last Admin: 06/10/18 22:54 Dose: 20 mg Budesonide/Formoterol Fumarate (Symbicort 160/4.5mcg -) 2 puff IH BID [facility] Last Admin: 06/10/18 23:29 Dose: 2 puff Clopidogrel Bisulfate (Plavix -) 75 mg PO DAILY [facility] Last Admin: 06/10/18 10:56 Dose: 75 mg Collagenase (Santyl -) 1 applic TP DAILY [facility]; Protocol Last Admin: 06/10/18 14:57 Dose: 1 applic Docusate Sodium (Colace -) 300 mg PO HS [facility] Last Admin: 06/10/18 22:53 Dose: 300 mg Ergocalciferol (Drisdol -) 50,000 unit PO Mo@1000 [facility] Ferrous Sulfate (Feosol -) 325 mg PO BID [facility] Last Admin: 06/10/18 23:29 Dose: 325 mg Fluticasone Propionate (Flonase -) 1 spray NS BID [facility] Last Admin: 06/10/18 23:29 Dose: 1 spray Guaifenesin (Robitussin -) 20 ml PO Q8H PRN PRN Reason: COUGH/CHEST CONGESTION Last Admin: 06/11/18 00:03 Dose: 20 ml Guaifenesin (Mucinex -) 1,200 mg PO BID [facility] Last Admin: 06/10/18 22:54 Dose: 1,200 mg Heparin Sodium (Porcine) (Heparin -) 5,000 unit SQ BID [facility] Last Admin: 06/10/18 22:56 Dose: 5,000 unit Piperacillin Sod/Tazobactam (Sod 2.25 gm/ Dextrose) 50 mls @ 100 mls/hr IVPB Q8H-IV [facility]; Protocol Last Admin: 06/11/18 02:57 Dose: 100 mls/hr Insulin Aspart (Novolog Vial Sliding Scale -) 1 vial SQ ACHS [facility]; Protocol Last Admin: 06/11/18 06:25 Dose: 6 unit Insulin Detemir (Levemir Vial) 32 units SQ AM [facility] Last Admin: 06/11/18 06:25 Dose: 32 unit Memantine (Namenda -) 5 mg PO BID [facility] Last Admin: 06/10/18 22:54 Dose: 5 mg Metoprolol Succinate (Toprol Xl -) 25 mg PO DAILY [facility] Last Admin: 06/10/18 10:57 Dose: 25 mg Oxycodone HCl (Roxicodone -) 10 mg PO Q6H PRN PRN Reason: PAIN LEVEL 7 - 10 Last Admin: 06/11/18 00:03 Dose: 10 mg Pantoprazole Sodium (Protonix -) 40 mg PO DAILY [facility] Last Admin: 06/10/18 10:57 Dose: 40 mg Polyethylene Glycol (Miralax (For Daily Use) -) 17 gm PO DAILY [facility] Last Admin: 06/10/18 11:02 Dose: 17 grams Pramipexole Dihydrochloride (Mirapex -) 0.5 mg PO BID [facility] Last Admin: 06/10/18 23:29 Dose: 0.5 mg Pregabalin (Lyrica -) 150 mg PO BID [facility] Last Admin: 06/10/18 22:56 Dose: 150 mg Senna (Senna -) 2 tab PO [facility] Last Admin: 06/10/18 22:55 Dose: 2 tab Tamsulosin HCl (Flomax -) 0.4 mg PO DAILY@0830 [facility] Last Admin: 06/11/18 08:23 Dose: 0.4 mg Trazodone HCl (Desyrel -) 50 mg PO HS [facility] Last Admin: 06/10/18 22:54 Dose: 50 mg Zinc Sulfate (Orazinc -) 220 mg PO BID [facility] Last Admin: 06/10/18 22:55 Dose: 220 mg - Objective Vital Signs: Vital Signs Temperature 98.1 F 06/11/18 06:00 Pulse Rate 69 06/11/18 06:00 Respiratory Rate 06/11/18 06:00 Blood Pressure 144/69 06/11/18 06:00 O2 Sat by Pulse Oximetry (%) 97 06/10/18 21:00 Constitutional: Yes: Well Nourished, No Distress, Calm Cardiovascular: Yes: Regular Rate and Rhythm Respiratory: Yes: Regular Gastrointestinal: Yes: Normal Bowel Sounds, Soft Musculoskeletal: Yes: WNL Extremities: Yes: Amputation (transmetatarsal of right foot) Edema: No Neurological: Yes: Alert, Oriented Psychiatric: Yes: Alert, Oriented Labs: INR, PTT INR 1.26 (0.83-1.09) H 06/05/18 19:25 Problem List - Problems (1) Fever Assessment/Plan: -afebrile overnight -Cultures: Microbiology 06/05/18 19:25 Blood - Peripheral Venous Blood Culture - Final NO GROWTH AFTER 5 DAYS INCUBATION 06/05/18 19:25 Blood - Peripheral Venous Blood Culture - Final NO GROWTH AFTER 5 DAYS INCUBATION 06/06/18 17:30 Wound Gram Stain - Final 06/06/18 17:30 Wound Wound Culture - Final Morganella Morganii 06/07/18 11:08 Urine For Antigen Detection Legionella Antigen - Final 06/07/18 11:08 Urine For Antigen Detection Streptococcus pneumoniae Antigen (M - Final 06/05/18 18:39 Urine - Urine Clean Catch Urine Culture - Final NO GROWTH OBTAINED 06/05/18 20:10 Nasopharyngeal Swab Influenza Types A,B Antigen - Final 06/05/18 20:10 Nasopharyngeal Swab - Final -ID consult -on IV Zosyn -Acetaminophen 650 mg Q6H PRN Code(s): R50.9 - FEVER, UNSPECIFIED Qualifiers: Fever type: unspecified Qualified Code(s): R50.9 - Fever, unspecified (2) Charcot foot due to diabetes mellitus Assessment/Plan: -Vascular consult -podiatry consult -ID on board -Cultures reviewed -IV abx -PICC line on Tuesday -Oxycodone 10 mg Code(s): E11.610 - TYPE 2 DIABETES MELLITUS W DIABETIC NEUROPATHIC ARTHROPATHY (3) Chronic osteomyelitis Assessment/Plan: -ESR,CRP elevated -Vascular consult -podiatry consult -ID on board -Cultures reviewed Code(s): M86.60 - OTHER CHRONIC OSTEOMYELITIS, UNSPECIFIED SITE (4) Acute kidney injury superimposed on CKD Assessment/Plan: -Seen by Nephrology -Trend Cr Code(s): N17.9 - ACUTE KIDNEY FAILURE, UNSPECIFIED; N18.9 - CHRONIC KIDNEY DISEASE, UNSPECIFIED (5) Chronic cough Assessment/Plan: -CT chest: Faint ill-defined groundglass appearance of mainly the upper lobes with minimal thickening of the interstitial septa that may represent mild atelectatic changes. Cannot rule out interstitial lung disease or minimal noncardiogenic pulmonary venous congestion. Cannot rule out inflammatory changes. Correlate clinically. No focal airspace disease/pneumonic infiltrates are identified. Slightly enlarged right paratracheal lymph node measuring 1.5 x 1.1 cm. Correlate clinically for further evaluation. -Pulmonary consult Code(s): R05 - COUGH (6) Sepsis Assessment/Plan: -afebrile overnight -Cultures: Microbiology 06/05/18 19:25 Blood - Peripheral Venous Blood Culture - Preliminary NO GROWTH OBTAINED AFTER 96 HOURS, INCUBATION TO CONTINUE FOR 1 DAYS. 06/05/18 19:25 Blood - Peripheral Venous Blood Culture - Preliminary NO GROWTH OBTAINED AFTER 96 HOURS, INCUBATION TO CONTINUE FOR 1 DAYS. 06/06/18 17:30 Wound Gram Stain - Final 06/06/18 17:30 Wound Wound Culture - Final Morganella Morganii 06/07/18 11:08 Urine For Antigen Detection Legionella Antigen - Final 06/07/18 11:08 Urine For Antigen Detection Streptococcus pneumoniae Antigen (M - Final 06/05/18 18:39 Urine - Urine Clean Catch Urine Culture - Final NO GROWTH OBTAINED 06/05/18 20:10 Nasopharyngeal Swab Influenza Types A,B Antigen - Final 06/05/18 20:10 Nasopharyngeal Swab - Final -ID consult -On IV Zosyn -PICC line on Tuesday -Acetaminophen 650 mg Q6H PRN Code(s): A41.9 - SEPSIS, UNSPECIFIED ORGANISM Qualifiers: Sepsis type: sepsis due to unspecified organism Qualified Code(s): A41.9 - Sepsis, unspecified organism (7) Diabetes mellitus Assessment/Plan: -BGM AC HS -Diabetic low sodium diet -Insuline: novolog and levemir -RD consult Code(s): E11.9 - TYPE 2 DIABETES MELLITUS WITHOUT COMPLICATIONS Qualifiers: Diabetes mellitus type: type 2 Diabetes mellitus skilled nursing insulin use: unspecified skilled nursing insulin use status Diabetes mellitus complication status : with skin complications Diabetes mellitus complication detail: with dermatitis Qualified Code(s): E11.620 - Type 2 diabetes mellitus with diabetic dermatitis (8) Anemia Assessment/Plan: -CKD vs chronic disease vs BRAIN -On ferrous sulfate bid for BRAIN in the past -iron profile normal -transfuse for Hg <7.0 to avoid fluid overload -monitor trend -stool OB negative Code(s): D64.9 - ANEMIA, UNSPECIFIED Qualifiers: Anemia type: unspecified type Qualified Code(s): D64.9 - Anemia, unspecified Assessment/Plan see problem list DVT prophylaxis Physical therapy
--- NOTE | 2018-06-11 12:28 | PN ---
Progress Note, Physician Chief Complaint: The patient seen and examined in his room. Comfortable. Sitting by his bed. Denies any new complains. Right foot dressing in place. History of Present Illness: 67 year old AA gentleman with hx of CKD stage 4 (baseline Cr 1.6), Hypertension , DM, COPD,PVD s/p recent amputation who presented with fevers with JESÚS. - Current Medication List Current Medications: Active Medications Albuterol/Ipratropium (Duoneb -) 1 amp NEB RQID [facility] Last Admin: 06/11/18 11:45 Dose: Not Given Allopurinol (Zyloprim -) 300 mg PO DAILY [facility] Last Admin: 06/11/18 10:12 Dose: 300 mg Amlodipine Besylate (Norvasc -) 5 mg PO DAILY [facility] Last Admin: 06/11/18 10:12 Dose: 5 mg Ascorbic Acid (Vitamin C -) 500 mg PO BID [facility] Last Admin: 06/11/18 10:12 Dose: 500 mg Atorvastatin Calcium (Lipitor -) 20 mg PO [facility] Last Admin: 06/10/18 22:54 Dose: 20 mg Budesonide/Formoterol Fumarate (Symbicort 160/4.5mcg -) 2 puff IH BID [facility] Last Admin: 06/11/18 10:13 Dose: 2 puff Clopidogrel Bisulfate (Plavix -) 75 mg PO DAILY [facility] Last Admin: 06/11/18 10:12 Dose: 75 mg Collagenase (Santyl -) 1 applic TP DAILY [facility]; Protocol Last Admin: 06/10/18 14:57 Dose: 1 applic Docusate Sodium (Colace -) 300 mg PO [facility] Last Admin: 06/10/18 22:53 Dose: 300 mg Ergocalciferol (Drisdol -) 50,000 unit PO Mo@1000 [facility] Ferrous Sulfate (Feosol -) 325 mg PO BID [facility] Last Admin: 06/11/18 10:12 Dose: 325 mg Fluticasone Propionate (Flonase -) 1 spray NS BID [facility] Last Admin: 06/11/18 10:13 Dose: 1 spray Guaifenesin (Robitussin -) 20 ml PO Q8H PRN PRN Reason: COUGH/CHEST CONGESTION Last Admin: 06/11/18 10:20 Dose: 20 ml Guaifenesin (Mucinex -) 1,200 mg PO BID [facility] Last Admin: 06/11/18 10:12 Dose: 1,200 mg Heparin Sodium (Porcine) (Heparin -) 5,000 unit SQ BID [facility] Last Admin: 06/11/18 10:13 Dose: 5,000 unit Piperacillin Sod/Tazobactam (Sod 2.25 gm/ Dextrose) 50 mls @ 100 mls/hr IVPB Q8H-IV [facility]; Protocol Last Admin: 06/11/18 10:11 Dose: 100 mls/hr Insulin Aspart (Novolog Vial Sliding Scale -) 1 vial SQ ACHS [facility]; Protocol Last Admin: 06/11/18 11:34 Dose: 4 unit Insulin Detemir (Levemir Vial) 32 units SQ AM [facility] Last Admin: 06/11/18 06:25 Dose: 32 unit Memantine (Namenda -) 5 mg PO BID [facility] Last Admin: 06/11/18 10:12 Dose: 5 mg Metoprolol Succinate (Toprol Xl -) 25 mg PO DAILY [facility] Last Admin: 06/11/18 10:12 Dose: 25 mg Oxycodone HCl (Roxicodone -) 10 mg PO Q6H PRN PRN Reason: PAIN LEVEL 7 - 10 Last Admin: 06/11/18 00:03 Dose: 10 mg Pantoprazole Sodium (Protonix -) 40 mg PO DAILY [facility] Last Admin: 06/11/18 10:12 Dose: 40 mg Polyethylene Glycol (Miralax (For Daily Use) -) 17 gm PO DAILY [facility] Last Admin: 06/11/18 10:14 Dose: 17 grams Pramipexole Dihydrochloride (Mirapex -) 0.5 mg PO BID [facility] Last Admin: 06/11/18 10:20 Dose: 0.5 mg Pregabalin (Lyrica -) 150 mg PO BID [facility] Last Admin: 06/11/18 10:12 Dose: 150 mg Senna (Senna -) 2 tab PO HS [facility] Last Admin: 06/10/18 22:55 Dose: 2 tab Tamsulosin HCl (Flomax -) 0.4 mg PO DAILY@0830 [facility] Last Admin: 06/11/18 08:23 Dose: 0.4 mg Trazodone HCl (Desyrel -) 50 mg PO HS [facility] Last Admin: 06/10/18 22:54 Dose: 50 mg Zinc Sulfate (Orazinc -) 220 mg PO BID [facility] Last Admin: 06/11/18 10:12 Dose: 220 mg - Objective Vital Signs: Vital Signs Temperature 97.3 F L 06/11/18 10:00 Pulse Rate 73 06/11/18 10:00 Respiratory Rate 18 06/11/18 10:00 Blood Pressure 143/76 06/11/18 10:00 O2 Sat by Pulse Oximetry (%) 97 06/10/18 21:00 Constitutional: Yes: No Distress, Anxious Eyes: Yes: Conjunctiva Clear HENT: Yes: Normocephalic Neck: Yes: WNL Cardiovascular: Yes: S1, S2 Respiratory: Yes: Accessory Muscle Use Gastrointestinal: Yes: Normal Bowel Sounds, Soft Extremities: Yes: Amputation Labs: CBC, BMP 06/11/18 08:33 INR, PTT INR 1.26 (0.83-1.09) H 06/05/18 19:25 Problem List - Problems (1) JESÚS (acute kidney injury) Code(s): N17.9 - ACUTE KIDNEY FAILURE, UNSPECIFIED (2) Fever Code(s): R50.9 - FEVER, UNSPECIFIED Qualifiers: Fever type: unspecified Qualified Code(s): R50.9 - Fever, unspecified (3) Acute kidney injury superimposed on CKD Code(s): N17.9 - ACUTE KIDNEY FAILURE, UNSPECIFIED; N18.9 - CHRONIC KIDNEY DISEASE, UNSPECIFIED (4) Arterial occlusion, lower extremity Code(s): I74.3 - EMBOLISM AND THROMBOSIS OF ARTERIES OF THE LOWER EXTREMITIES (5) Chronic osteomyelitis Code(s): M86.60 - OTHER CHRONIC OSTEOMYELITIS, UNSPECIFIED SITE (6) Diabetic foot infection Code(s): E11.69 - TYPE 2 DIABETES MELLITUS WITH OTHER SPECIFIED COMPLICATION; L08.9 - LOCAL INFECTION OF THE SKIN AND SUBCUTANEOUS TISSUE, UNSP (7) Type 2 diabetes mellitus with diabetic peripheral angiopathy with gangrene Code(s): E11.52 - TYPE 2 DIABETES W DIABETIC PERIPHERAL ANGIOPATHY W [place] (8) Coronary artery disease Code(s): I25.10 - ATHSCL HEART DISEASE OF [place] CORONARY ARTERY W/O ANG PCTRS Qualifiers: Coronary Disease-Associated Artery/Lesion type: [place] artery [place] vs. transplanted heart: [place] heart Associated angina: without angina Qualified Code(s): I25.10 - Atherosclerotic heart disease of [place] coronary artery without angina pectoris (9) Hyperlipidemia Code(s): E78.5 - HYPERLIPIDEMIA, UNSPECIFIED Qualifiers: Hyperlipidemia type: pure hypercholesterolemia Qualified Code(s): E78.00 - Pure hypercholesterolemia, unspecified (10) Hypertension Code(s): I10 - ESSENTIAL (PRIMARY) HYPERTENSION Qualifiers: Hypertension type: essential hypertension Qualified Code(s): I10 - Essential (primary) hypertension (11) Peripheral artery disease Code(s): I73.9 - PERIPHERAL VASCULAR DISEASE, UNSPECIFIED Assessment/Plan 67 year old gentleman with hx of CKD stage 4 (baseline Cr 1.6), Hypertension, DM , COPD, PVD s/p recent amputation who presented with fevers with JESÚS. Acute Kidney Injury, related to multifactorial factors including sepsis, hemodynamic factors that reduce renal perfusion. There is some acute worsening of Azotemia for the past few days... Also noted is Eosinophilia and tendency for Hyperkalemia. Need to be alert about Allergic Interstitial Nephritis. ? Allopurinol. Will get urinary eosinophils. David stop Allopurinol. Trend the renal functions. Will follow with you. Yuli Rodriguez MD
--- NOTE | 2018-06-11 12:40 | PN ---
Progress Note (short form) - Note Progress Note: Resting in NAD. No change in cough. No acute events overnight. Intake & Output 06/08/18 06/09/18 06/10/18 06/11/18 23:59 23:59 23:59 23:59 Intake Total 800 1000 1050 100 Output Total 1600 2050 1650 950 Balance -800 -1050 -600 -850 Weight 179 lb 5 oz Last Vital Signs Temp Pulse Resp BP Pulse Ox 97.3 F L 73 18 143/76 97 06/11/18 10:00 06/11/18 10:00 06/11/18 10:00 06/11/18 10:00 06/10/18 21:00 Active Medications Allopurinol (Zyloprim -) 300 mg PO DAILY [facility] Last Admin: 06/11/18 10:12 Dose: 300 mg Amlodipine Besylate (Norvasc -) 5 mg PO DAILY [facility] Last Admin: 06/11/18 10:12 Dose: 5 mg Ascorbic Acid (Vitamin C -) 500 mg PO BID [facility] Last Admin: 06/11/18 10:12 Dose: 500 mg Atorvastatin Calcium (Lipitor -) 20 mg PO HS [facility] Last Admin: 06/10/18 22:54 Dose: 20 mg Budesonide/Formoterol Fumarate (Symbicort 160/4.5mcg -) 2 puff IH BID [facility] Last Admin: 06/11/18 10:13 Dose: 2 puff Clopidogrel Bisulfate (Plavix -) 75 mg PO DAILY [facility] Last Admin: 06/11/18 10:12 Dose: 75 mg Collagenase (Santyl -) 1 applic TP DAILY [facility]; Protocol Last Admin: 06/10/18 14:57 Dose: 1 applic Docusate Sodium (Colace -) 300 mg PO HS [facility] Last Admin: 06/10/18 22:53 Dose: 300 mg Ergocalciferol (Drisdol -) 50,000 unit PO Mo@1000 [facility] Ferrous Sulfate (Feosol -) 325 mg PO BID [facility] Last Admin: 06/11/18 10:12 Dose: 325 mg Fluticasone Propionate (Flonase -) 1 spray NS BID [facility] Last Admin: 06/11/18 10:13 Dose: 1 spray Guaifenesin (Robitussin -) 20 ml PO Q8H PRN PRN Reason: COUGH/CHEST CONGESTION Last Admin: 06/11/18 10:20 Dose: 20 ml Guaifenesin (Mucinex -) 1,200 mg PO BID [facility] Last Admin: 06/11/18 10:12 Dose: 1,200 mg Heparin Sodium (Porcine) (Heparin -) 5,000 unit SQ BID [facility] Last Admin: 06/11/18 10:13 Dose: 5,000 unit Piperacillin Sod/Tazobactam (Sod 2.25 gm/ Dextrose) 50 mls @ 100 mls/hr IVPB Q8H-IV [facility]; Protocol Last Admin: 06/11/18 10:11 Dose: 100 mls/hr Insulin Aspart (Novolog Vial Sliding Scale -) 1 vial SQ ACHS [facility]; Protocol Last Admin: 06/11/18 11:34 Dose: 4 unit Insulin Detemir (Levemir Vial) 32 units SQ AM [facility] Last Admin: 06/11/18 06:25 Dose: 32 unit Memantine (Namenda -) 5 mg PO BID [facility] Last Admin: 06/11/18 10:12 Dose: 5 mg Metoprolol Succinate (Toprol Xl -) 25 mg PO DAILY [facility] Last Admin: 06/11/18 10:12 Dose: 25 mg Oxycodone HCl (Roxicodone -) 10 mg PO Q6H PRN PRN Reason: PAIN LEVEL 7 - 10 Last Admin: 06/11/18 00:03 Dose: 10 mg Pantoprazole Sodium (Protonix -) 40 mg PO DAILY [facility] Last Admin: 06/11/18 10:12 Dose: 40 mg Polyethylene Glycol (Miralax (For Daily Use) -) 17 gm PO DAILY [facility] Last Admin: 06/11/18 10:14 Dose: 17 grams Pramipexole Dihydrochloride (Mirapex -) 0.5 mg PO BID [facility] Last Admin: 06/11/18 10:20 Dose: 0.5 mg Pregabalin (Lyrica -) 150 mg PO BID [facility] Last Admin: 06/11/18 10:12 Dose: 150 mg Senna (Senna -) 2 tab PO [facility] Last Admin: 06/10/18 22:55 Dose: 2 tab Tamsulosin HCl (Flomax -) 0.4 mg PO DAILY@0830 [facility] Last Admin: 06/11/18 08:23 Dose: 0.4 mg Trazodone HCl (Desyrel -) 50 mg PO [facility] Last Admin: 06/10/18 22:54 Dose: 50 mg Zinc Sulfate (Orazinc -) 220 mg PO BID [facility] Last Admin: 06/11/18 10:12 Dose: 220 mg Constitutional: Yes: NAD Eyes: Yes: Conjunctiva Clear, EOM Intact HENT: Yes: Atraumatic, Normocephalic Neck: Yes: Supple, Trachea Midline Cardiovascular: Yes: Regular Rate and Rhythm Respiratory: Yes: Diminished, few scattered ...Clubbing: No Gastrointestinal: Yes: Normal Bowel Sounds, Soft. No: Tenderness Edema: No Neurological: Yes: Alert, Oriented Labs: Laboratory Results - last 24 hr 06/10/18 06/10/18 06/11/18 08:11 17:25 00:00 Hypochromia 0 Platelet Estimate Normal Polychromasia 1+ Poikilocytosis 1+ Anisocytosis 2+ Microcytosis 1+ Macrocytosis 0 Sodium Potassium Chloride Carbon Dioxide Anion Gap BUN Creatinine Creat Clearance w eGFR POC Glucometer 254 345 Random Glucose Calcium Total Bilirubin AST ALT Alkaline Phosphatase Total Protein Albumin 06/11/18 06/11/18 06/11/18 06:25 08:33 11:31 Hypochromia Platelet Estimate Polychromasia Poikilocytosis Anisocytosis Microcytosis Macrocytosis Sodium 138 Potassium 5.5 H Chloride 106 Carbon Dioxide 21 Anion Gap 10 BUN 25 H Creatinine 1.8 H Creat Clearance w eGFR 37.82 POC Glucometer 318 298 Random Glucose 221 H Calcium 8.4 L Total Bilirubin 0.2 AST 9 L ALT 13 Alkaline Phosphatase 228 H Total Protein 7.5 Albumin 3.0 L Problem List - Problems (1) Chronic cough Code(s): R05 - COUGH (2) Acute kidney injury superimposed on CKD Code(s): N17.9 - ACUTE KIDNEY FAILURE, UNSPECIFIED; N18.9 - CHRONIC KIDNEY DISEASE, UNSPECIFIED (3) COPD (chronic obstructive pulmonary disease) Code(s): J44.9 - CHRONIC OBSTRUCTIVE PULMONARY DISEASE, UNSPECIFIED Qualifiers: COPD type: COPD with acute lower respiratory infection Qualified Code(s): J44.0 - Chronic obstructive pulmonary disease with acute lower respiratory infection (4) Diabetes mellitus Code(s): E11.9 - TYPE 2 DIABETES MELLITUS WITHOUT COMPLICATIONS Qualifiers: Diabetes mellitus type: type 2 Diabetes mellitus residential insulin use: unspecified residential insulin use status Diabetes mellitus complication status : with skin complications Diabetes mellitus complication detail: with dermatitis Qualified Code(s): E11.620 - Type 2 diabetes mellitus with diabetic dermatitis (5) Hyperlipidemia Code(s): E78.5 - HYPERLIPIDEMIA, UNSPECIFIED Qualifiers: Hyperlipidemia type: pure hypercholesterolemia Qualified Code(s): E78.00 - Pure hypercholesterolemia, unspecified (6) Hypertension Code(s): I10 - ESSENTIAL (PRIMARY) HYPERTENSION Qualifiers: Hypertension type: essential hypertension Qualified Code(s): I10 - Essential (primary) hypertension Assessment/Plan Fever COPD Chronic Cough due to Chronic Bronchitis Chronic Hypoxic Respiratory Failure Acute on Chronic Renal Failure HTN DM Hyperlipidemia Severe [facility] refusing PAP therapy despite explaining Risks/Benefits - Symbicort 160/4.5mcg 2 puffs BID - BD [place] - Fluticasone nasal sprays - O2 to keep SpO2 >90% - Will need outpatient PFTs and imaging to followup paratracheal node - DVT prophylaxis Dr Bailey
[2018-06-11] MEDS: COLLAGENASE CLOSTRIDIUM HIST. 30 GRAMS TUBE TP SCH (13:00)
[2018-06-11 13:14] LABS: BASO % 1.2 % (0-2.0); EOS % 8.5 % (0-4.5); HEMATOCRIT 40.9 % (35.4-49); HEMOGLOBIN 12.3 GM/dL (11.7-16.9); LYMPH % 19.4 % (8-40); MCH 22.4 pg (25.7-33.7); MCHC 30.2 g/dl (32.0-35.9); MEAN CELL VOLUME 74.1 fl (80-96); MEAN PLT VOLUME 9.3 fl (7.5-11.1); MONO % 7.9 % (3.8-10.2); PLATELET COUNT 204 K/MM3 (134-434); RBC 5.51 M/mm3 (4.00-5.60); RDW 18.7 % (11.9-15.9); WHITE BLOOD COUNT 7.4 K/mm3 (4.0-10.0)
[2018-06-11] MEDS ORDERED: ALBUTEROL SO4 2.5/IPRATROPIUM 0.5 INH SOL 3 ML VIAL.NEB. NEB ONE (15:50)
[2018-06-11] MEDS: DOCUSATE SODIUM 100 MG CAPSULE (FP) PO SCH (21:37)
[2018-06-11] MEDS: SENNOSIDES 8.6MG TABLET (FP) PO SCH (21:38)
[2018-06-11] MEDS: traZODone HCL 50 MG TABLET (FP) PO SCH (21:38)
[2018-06-11] MEDS: ATORVASTATIN CA 20 MG TABLET (FP) PO SCH (21:38)
[2018-06-12] MEDS ORDERED: PIPERACILLIN/TAZOBACTAM 2.25 GM VIAL IVPB ONE ×3 (01:17→17:14)
[2018-06-12] MEDS ORDERED: DEXTROSE 5%-WATER - 50 ML IVPB ONE ×3 (01:18→17:14)
[2018-06-12] MEDS: PIPERACILLIN/TAZOB 2.25 GM 2.25 GM in DEXTROSE 5%-WATER - 50 ML IVPB SCH ×2 (01:32→10:26)
[2018-06-12] MEDS ORDERED: PT OWN MED DRAWER 7, Y5N ONE ×3 (03:28→10:55)
[2018-06-12] MEDS: INSULIN SLIDING SCALE (NOVOLOG) 1 VIAL SQ SCH ×4 (06:10→22:01)
[2018-06-12] MEDS: INSULIN (LEVEMIR) 100 UNITS/ML UNITS SQ SCH (06:11)
[2018-06-12 06:51] LABS: HEMOGLOBIN 10.8 GM/dL (11.7-16.9); RBC 4.94 M/mm3 (4.00-5.60)
[2018-06-12 06:52] LABS: BASO % 1.3 % (0-2.0); LYMPH % 19.5 % (8-40); MCH 21.8 pg (25.7-33.7); MCHC 29.9 g/dl (32.0-35.9); MEAN CELL VOLUME 72.9 fl (80-96); MEAN PLT VOLUME 8.9 fl (7.5-11.1); MONO % 6.7 % (3.8-10.2); NEUT % 65.5 % (42.8-82.8); PLATELET COUNT 183 K/MM3 (134-434); RDW 18.6 % (11.9-15.9)
[2018-06-12 07:23] LABS: ALBUMIN 2.8 g/dl (3.4-5.0); ALK PHOS 221 U/L (45-117); ANION GAP 7 MMOL/L (8-16); BILIRUBIN,TOTAL 0.3 mg/dL (0.2-1); BLOOD UREA NITROGEN 24 mg/dL (7-18); CALCIUM 8.1 mg/dL (8.5-10.1); CHLORIDE 106 mmol/L (98-107); CO2 25 mmol/L (21-32); CREATININE 1.6 mg/dL (0.55-1.3); POTASSIUM 5.3 mmol/L (3.5-5.1); SGOT/AST 9 U/L (15-37); SGPT/ALT 14 U/L (13-61); SODIUM 138 mmol/L (136-145); TOT PROT 6.9 g/dl (6.4-8.2); URIC ACID 3.4 mg/dL (2.6-7.2)
[2018-06-12 08:07] LABS: GLUCOSE,RANDOM 310 mg/dL (74-106)
[2018-06-12] MEDS: TAMSULOSIN HCL 0.4 MG CAP PO SCH (08:30)
--- NOTE | 2018-06-12 09:48 | PN ---
Progress Note, Physician - Current Medication List Current Medications: Active Medications Allopurinol (Zyloprim -) 300 mg PO DAILY [facility] Last Admin: 06/11/18 10:12 Dose: 300 mg Amlodipine Besylate (Norvasc -) 5 mg PO DAILY [facility] Last Admin: 06/11/18 10:12 Dose: 5 mg Ascorbic Acid (Vitamin C -) 500 mg PO BID [facility] Last Admin: 06/11/18 21:38 Dose: 500 mg Atorvastatin Calcium (Lipitor -) 20 mg PO HS [facility] Last Admin: 06/11/18 21:38 Dose: 20 mg Budesonide/Formoterol Fumarate (Symbicort 160/4.5mcg -) 2 puff IH BID [facility] Last Admin: 06/11/18 21:42 Dose: 2 puff Clopidogrel Bisulfate (Plavix -) 75 mg PO DAILY [facility] Last Admin: 06/11/18 10:12 Dose: 75 mg Collagenase (Santyl -) 1 applic TP DAILY [facility]; Protocol Last Admin: 06/11/18 13:00 Dose: 1 applic Docusate Sodium (Colace -) 300 mg PO HS [facility] Last Admin: 06/11/18 21:37 Dose: 300 mg Ergocalciferol (Drisdol -) 50,000 unit PO Mo@1000 [facility] Ferrous Sulfate (Feosol -) 325 mg PO BID [facility] Last Admin: 06/11/18 21:38 Dose: 325 mg Fluticasone Propionate (Flonase -) 1 spray NS BID [facility] Last Admin: 06/11/18 21:39 Dose: 1 spray Guaifenesin (Robitussin -) 20 ml PO Q8H PRN PRN Reason: COUGH/CHEST CONGESTION Last Admin: 06/11/18 21:54 Dose: 20 ml Guaifenesin (Mucinex -) 1,200 mg PO BID [facility] Last Admin: 06/11/18 21:37 Dose: 1,200 mg Heparin Sodium (Porcine) (Heparin -) 5,000 unit SQ BID [facility] Last Admin: 06/11/18 21:38 Dose: 5,000 unit Piperacillin Sod/Tazobactam (Sod 2.25 gm/ Dextrose) 50 mls @ 100 mls/hr IVPB Q8H-IV [facility]; Protocol Last Admin: 06/12/18 01:32 Dose: 100 mls/hr Insulin Aspart (Novolog Vial Sliding Scale -) 1 vial SQ ACHS [facility]; Protocol Last Admin: 06/12/18 06:10 Dose: 2 unit Insulin Detemir (Levemir Vial) 32 units SQ AM [facility] Last Admin: 06/12/18 06:11 Dose: 32 unit Memantine (Namenda -) 5 mg PO BID [facility] Last Admin: 06/11/18 21:38 Dose: 5 mg Metoprolol Succinate (Toprol Xl -) 25 mg PO DAILY [facility] Last Admin: 06/11/18 10:12 Dose: 25 mg Oxycodone HCl (Roxicodone -) 10 mg PO Q6H PRN PRN Reason: PAIN LEVEL 7 - 10 Last Admin: 06/11/18 21:53 Dose: 10 mg Pantoprazole Sodium (Protonix -) 40 mg PO DAILY [facility] Last Admin: 06/11/18 10:12 Dose: 40 mg Polyethylene Glycol (Miralax (For Daily Use) -) 17 gm PO DAILY [facility] Last Admin: 06/11/18 10:14 Dose: 17 grams Pramipexole Dihydrochloride (Mirapex -) 0.5 mg PO BID [facility] Last Admin: 06/11/18 21:40 Dose: 0.5 mg Pregabalin (Lyrica -) 150 mg PO BID [facility] Last Admin: 06/11/18 21:37 Dose: 150 mg Senna (Senna -) 2 tab PO [facility] Last Admin: 06/11/18 21:38 Dose: 2 tab Tamsulosin HCl (Flomax -) 0.4 mg PO DAILY@0830 [facility] Last Admin: 06/12/18 08:30 Dose: 0.4 mg Trazodone HCl (Desyrel -) 50 mg PO [facility] Last Admin: 06/11/18 21:38 Dose: 50 mg Zinc Sulfate (Orazinc -) 220 mg PO BID [facility] Last Admin: 06/11/18 21:37 Dose: 220 mg - Objective Vital Signs: Vital Signs Temperature 97.7 F 06/12/18 06:00 Pulse Rate 68 06/12/18 06:00 Respiratory Rate 18 06/12/18 06:00 Blood Pressure 128/71 06/12/18 06:00 O2 Sat by Pulse Oximetry (%) 97 06/10/18 21:00 Cardiovascular: Yes: S1, S2 Respiratory: Yes: Regular, CTA Bilaterally Gastrointestinal: Yes: Normal Bowel Sounds, Soft Extremities: Yes: Amputation Labs: CBC, BMP 06/12/18 06:25 06/12/18 06:25 INR, PTT INR 1.26 (0.83-1.09) H 06/05/18 19:25 Assessment/Plan - Problems (1) Fever Assessment/Plan: -afebrile overnight -Cultures: Microbiology 06/05/18 19:25 Blood - Peripheral Venous Blood Culture - Final NO GROWTH AFTER 5 DAYS INCUBATION 06/05/18 19:25 Blood - Peripheral Venous Blood Culture - Final NO GROWTH AFTER 5 DAYS INCUBATION 06/06/18 17:30 Wound Gram Stain - Final 06/06/18 17:30 Wound Wound Culture - Final Morganella Morganii 06/07/18 11:08 Urine For Antigen Detection Legionella Antigen - Final 06/07/18 11:08 Urine For Antigen Detection Streptococcus pneumoniae Antigen (M - Final 06/05/18 18:39 Urine - Urine Clean Catch Urine Culture - Final NO GROWTH OBTAINED 06/05/18 20:10 Nasopharyngeal Swab Influenza Types A,B Antigen - Final 06/05/18 20:10 Nasopharyngeal Swab - Final -ID consult -on IV Zosyn -Acetaminophen 650 mg Q6H PRN Code(s): R50.9 - FEVER, UNSPECIFIED Qualifiers: Fever type: unspecified Qualified Code(s): R50.9 - Fever, unspecified (2) Charcot foot due to diabetes mellitus Assessment/Plan: -Vascular consult -podiatry consult -ID on board -Cultures reviewed -IV abx -PICC line on Tuesday -Oxycodone 10 mg Code(s): E11.610 - TYPE 2 DIABETES MELLITUS W DIABETIC NEUROPATHIC ARTHROPATHY (3) Chronic osteomyelitis Assessment/Plan: -ESR,CRP elevated -Vascular consult -podiatry consult -ID on board -Cultures reviewed Code(s): M86.60 - OTHER CHRONIC OSTEOMYELITIS, UNSPECIFIED SITE (4) Acute kidney injury superimposed on CKD Assessment/Plan: -Seen by Nephrology -Trend Cr Code(s): N17.9 - ACUTE KIDNEY FAILURE, UNSPECIFIED; N18.9 - CHRONIC KIDNEY DISEASE, UNSPECIFIED (5) Chronic cough Assessment/Plan: -CT chest: Faint ill-defined groundglass appearance of mainly the upper lobes with minimal thickening of the interstitial septa that may represent mild atelectatic changes. Cannot rule out interstitial lung disease or minimal noncardiogenic pulmonary venous congestion. Cannot rule out inflammatory changes. Correlate clinically. No focal airspace disease/pneumonic infiltrates are identified. Slightly enlarged right paratracheal lymph node measuring 1.5 x 1.1 cm. Correlate clinically for further evaluation. -Pulmonary consult Code(s): R05 - COUGH (6) Sepsis Assessment/Plan: -afebrile overnight -Cultures: Microbiology 06/05/18 19:25 Blood - Peripheral Venous Blood Culture - Preliminary NO GROWTH OBTAINED AFTER 96 HOURS, INCUBATION TO CONTINUE FOR 1 DAYS. 06/05/18 19:25 Blood - Peripheral Venous Blood Culture - Preliminary NO GROWTH OBTAINED AFTER 96 HOURS, INCUBATION TO CONTINUE FOR 1 DAYS. 06/06/18 17:30 Wound Gram Stain - Final 06/06/18 17:30 Wound Wound Culture - Final Morganella Morganii 06/07/18 11:08 Urine For Antigen Detection Legionella Antigen - Final 06/07/18 11:08 Urine For Antigen Detection Streptococcus pneumoniae Antigen (M - Final 06/05/18 18:39 Urine - Urine Clean Catch Urine Culture - Final NO GROWTH OBTAINED 06/05/18 20:10 Nasopharyngeal Swab Influenza Types A,B Antigen - Final 06/05/18 20:10 Nasopharyngeal Swab - Final -ID consult -On IV Zosyn -PICC line on Tuesday -Acetaminophen 650 mg Q6H PRN Code(s): A41.9 - SEPSIS, UNSPECIFIED ORGANISM Qualifiers: Sepsis type: sepsis due to unspecified organism Qualified Code(s): A41.9 - Sepsis, unspecified organism (7) Diabetes mellitus Assessment/Plan: -BGM AC HS -Diabetic low sodium diet -Insuline: novolog and levemir -RD consult Code(s): E11.9 - TYPE 2 DIABETES MELLITUS WITHOUT COMPLICATIONS Qualifiers: Diabetes mellitus type: 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 2 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 chcf insulin use status Diabetes mellitus complication status : with skin complications Diabetes mellitus complication detail: with dermatitis Qualified Code(s): E11.620 - Type 2 diabetes mellitus with diabetic dermatitis (8) Anemia Assessment/Plan: -CKD vs chronic disease vs BRAIN -On ferrous sulfate bid for BRAIN in the past -iron profile normal -transfuse for Hg <7.0 to avoid fluid overload -monitor trend -stool OB negative Code(s): D64.9 - ANEMIA, UNSPECIFIED Qualifiers: Anemia type: unspecified type Qualified Code(s): D64.9 - Anemia, unspecified Assessment/Plan see problem list DVT prophylaxis Physical therapy
[2018-06-12] MEDS ORDERED: ERGOCALCIFEROL (VITAMIN D2) 50,000 UNIT CAPSULE (FP) PO SCH (10:00)
[2018-06-12] MEDS: HEPARIN NA (PORCINE) 5,000 UNITS/ML 1ML VIAL SQ SCH ×2 (10:26→22:04)
[2018-06-12] MEDS: PREGABALIN 75 MG CAPSULE PO SCH ×2 (10:27→22:03)
[2018-06-12] MEDS: amLODIPine BESYLATE 5 MG TABLET (FP) PO SCH (10:27)
[2018-06-12] MEDS: BUDESONIDE/FORMETEROL FUMARATE 160/4.5 mcg INHALER IH SCH ×2 (10:27→22:04)
[2018-06-12] MEDS: MEMANTINE HCL 5 MG TABLET (UD) PO SCH ×2 (10:27→22:03)
[2018-06-12] MEDS: ALLOPURINOL 300 MG TABLET (FP) PO SCH (10:27)
[2018-06-12] MEDS: guaiFENesin 600 MG TABLET.ER (FP) PO SCH ×2 (10:27→22:03)
[2018-06-12] MEDS: FERROUS SO4 325 MG TABLET (FP) PO SCH ×2 (10:27→22:03)
[2018-06-12] MEDS: ASCORBIC ACID 500 MG TABLET (FP) PO SCH ×2 (10:27→22:03)
[2018-06-12] MEDS: metoPROLOL SUCCINATE 25 MG TAB.SR.24H (FP) PO SCH (10:27)
[2018-06-12] MEDS: PANTOPRAZOLE 40 MG TABLET (FP) PO SCH (10:27)
[2018-06-12] MEDS: CLOPIDOGREL BISULFATE 75 MG TABLET (FP) PO SCH (10:27)
[2018-06-12] MEDS: ZINC SULFATE 220 MG CAPSULE (FP) PO SCH ×2 (10:27→22:03)
[2018-06-12] MEDS: PRAMIPEXOLE DIHYDROCHLORIDE 0.5 MG TABLET PO SCH ×2 (10:28→22:04)
[2018-06-12] MEDS: FLUTICASONE PROP 0.05% 16 GM NASAL SPRAY NS SCH ×2 (10:28→22:05)
[2018-06-12] MEDS: POLYETHYLENE GLYCOL 3350 119 GM BTL PO SCH (10:29)
[2018-06-12] MEDS: oxyCODONE HCL 5 MG TABLET PO PRN (10:59)
[2018-06-12] MEDS: guaiFENesin 200 MG/10 ML 10 ML UNIT-DOSE CUPS PO PRN (12:05)
--- NOTE | 2018-06-12 13:00 | PN ---
Progress Note (short form) - Note Progress Note: Resting in NAD. No change in cough. No acute events overnight. Intake & Output 06/09/18 06/10/18 06/11/18 06/12/18 23:59 23:59 23:59 23:59 Intake Total 1000 1050 950 480 Output Total 2050 1650 2250 200 Balance -1050 -600 -1300 280 Last Vital Signs Temp Pulse Resp BP Pulse Ox 98.1 F 74 20 135/69 97 06/12/18 10:00 06/12/18 10:00 06/12/18 10:00 06/12/18 10:00 06/10/18 21:00 Active Medications Allopurinol (Zyloprim -) 300 mg PO DAILY [facility] Last Admin: 06/12/18 10:27 Dose: 300 mg Amlodipine Besylate (Norvasc -) 5 mg PO DAILY [facility] Last Admin: 06/12/18 10:27 Dose: 5 mg Ascorbic Acid (Vitamin C -) 500 mg PO BID [facility] Last Admin: 06/12/18 10:27 Dose: 500 mg Atorvastatin Calcium (Lipitor -) 20 mg PO HS [facility] Last Admin: 06/11/18 21:38 Dose: 20 mg Budesonide/Formoterol Fumarate (Symbicort 160/4.5mcg -) 2 puff IH BID [facility] Last Admin: 06/12/18 10:27 Dose: 2 puff Clopidogrel Bisulfate (Plavix -) 75 mg PO DAILY [facility] Last Admin: 06/12/18 10:27 Dose: 75 mg Collagenase (Santyl -) 1 applic TP DAILY [facility]; Protocol Last Admin: 06/11/18 13:00 Dose: 1 applic Docusate Sodium (Colace -) 300 mg PO HS [facility] Last Admin: 06/11/18 21:37 Dose: 300 mg Ergocalciferol (Drisdol -) 50,000 unit PO Mo@1000 [facility] Last Admin: 06/12/18 10:28 Dose: 50,000 unit Ferrous Sulfate (Feosol -) 325 mg PO BID [facility] Last Admin: 06/12/18 10:27 Dose: 325 mg Fluticasone Propionate (Flonase -) 1 spray NS BID [facility] Last Admin: 06/12/18 10:28 Dose: 1 spray Guaifenesin (Robitussin -) 20 ml PO Q8H PRN PRN Reason: COUGH/CHEST CONGESTION Last Admin: 06/12/18 12:05 Dose: 20 ml Guaifenesin (Mucinex -) 1,200 mg PO BID [facility] Last Admin: 06/12/18 10:27 Dose: 1,200 mg Heparin Sodium (Porcine) (Heparin -) 5,000 unit SQ BID [facility] Last Admin: 06/12/18 10:26 Dose: 5,000 unit Piperacillin Sod/Tazobactam (Sod 2.25 gm/ Dextrose) 50 mls @ 100 mls/hr IVPB Q8H-IV [facility]; Protocol Last Admin: 06/12/18 10:26 Dose: 100 mls/hr Insulin Aspart (Novolog Vial Sliding Scale -) 1 vial SQ ACHS [facility]; Protocol Last Admin: 06/12/18 12:05 Dose: 6 unit Insulin Detemir (Levemir Vial) 32 units SQ AM [facility] Last Admin: 06/12/18 06:11 Dose: 32 unit Memantine (Namenda -) 5 mg PO BID [facility] Last Admin: 06/12/18 10:27 Dose: 5 mg Metoprolol Succinate (Toprol Xl -) 25 mg PO DAILY [facility] Last Admin: 06/12/18 10:27 Dose: 25 mg Oxycodone HCl (Roxicodone -) 10 mg PO Q6H PRN PRN Reason: PAIN LEVEL 7 - 10 Last Admin: 06/12/18 10:59 Dose: 10 mg Pantoprazole Sodium (Protonix -) 40 mg PO DAILY [facility] Last Admin: 06/12/18 10:27 Dose: 40 mg Polyethylene Glycol (Miralax (For Daily Use) -) 17 gm PO DAILY [facility] Last Admin: 06/12/18 10:29 Dose: Not Given Pramipexole Dihydrochloride (Mirapex -) 0.5 mg PO BID [facility] Last Admin: 06/12/18 10:28 Dose: 0.5 mg Pregabalin (Lyrica -) 150 mg PO BID [facility] Last Admin: 06/12/18 10:27 Dose: 150 mg Senna (Senna -) 2 tab PO HS [facility] Last Admin: 06/11/18 21:38 Dose: 2 tab Tamsulosin HCl (Flomax -) 0.4 mg PO DAILY@0830 [facility] Last Admin: 06/12/18 08:30 Dose: 0.4 mg Trazodone HCl (Desyrel -) 50 mg PO HS [facility] Last Admin: 06/11/18 21:38 Dose: 50 mg Zinc Sulfate (Orazinc -) 220 mg PO BID [facility] Last Admin: 06/12/18 10:27 Dose: 220 mg Constitutional: Yes: NAD Eyes: Yes: Conjunctiva Clear, EOM Intact HENT: Yes: Atraumatic, Normocephalic Neck: Yes: Supple, Trachea Midline Cardiovascular: Yes: Regular Rate and Rhythm Respiratory: Yes: Diminished, few scattered ...Clubbing: No Gastrointestinal: Yes: Normal Bowel Sounds, Soft. No: Tenderness Edema: No Neurological: Yes: Alert, Oriented Labs: Laboratory Results - last 24 hr 06/11/18 06/11/18 06/11/18 08:33 10:59 16:23 WBC Cancelled 7.4 Corrected WBC (auto) Cancelled RBC Cancelled 5.51 Hgb Cancelled 12.3 Hct Cancelled 40.9 MCV Cancelled 74.1 L MCH Cancelled 22.4 L MCHC Cancelled 30.2 L RDW Cancelled 18.7 H Plt Count Cancelled 204 MPV Cancelled 9.3 Absolute Neuts (auto) Cancelled 4.7 Neutrophils % Cancelled 63.0 Lymphocytes % Cancelled 19.4 Monocytes % Cancelled 7.9 Eosinophils % Cancelled 8.5 H Basophils % Cancelled 1.2 Nucleated RBC % Cancelled 0 Platelet Estimate Cancelled Platelet Comment Cancelled Sodium Potassium Chloride Carbon Dioxide Anion Gap BUN Creatinine Creat Clearance w eGFR POC Glucometer > 600 Random Glucose Uric Acid Calcium Total Bilirubin AST ALT Alkaline Phosphatase Total Protein Albumin 06/11/18 06/11/18 06/12/18 16:46 20:40 05:31 WBC Corrected WBC (auto) RBC Hgb Hct MCV MCH MCHC RDW Plt Count MPV Absolute Neuts (auto) Neutrophils % Lymphocytes % Monocytes % Eosinophils % Basophils % Nucleated RBC % Platelet Estimate Platelet Comment Sodium Potassium Chloride Carbon Dioxide Anion Gap BUN Creatinine Creat Clearance w eGFR POC Glucometer 284 261 278 Random Glucose Uric Acid Calcium Total Bilirubin AST ALT Alkaline Phosphatase Total Protein Albumin 06/12/18 06/12/18 06/12/18 06:25 06:25 11:31 WBC 8.0 Corrected WBC (auto) RBC 4.94 Hgb 10.8 L Hct 36.0 MCV 72.9 L MCH 21.8 L MCHC 29.9 L RDW 18.6 H Plt Count 183 MPV 8.9 Absolute Neuts (auto) 5.2 Neutrophils % 65.5 Lymphocytes % 19.5 Monocytes % 6.7 Eosinophils % 7.0 H Basophils % 1.3 Nucleated RBC % 0 Platelet Estimate Platelet Comment Sodium 138 Potassium 5.3 H Chloride 106 Carbon Dioxide 25 Anion Gap 7 L BUN 24 H Creatinine 1.6 H Creat Clearance w eGFR 43.33 POC Glucometer 345 Random Glucose 310 H* Uric Acid 3.4 Calcium 8.1 L Total Bilirubin 0.3 AST 9 L ALT 14 Alkaline Phosphatase 221 H Total Protein 6.9 Albumin 2.8 L Problem List - Problems (1) Chronic cough Code(s): R05 - COUGH (2) Acute kidney injury superimposed on CKD Code(s): N17.9 - ACUTE KIDNEY FAILURE, UNSPECIFIED; N18.9 - CHRONIC KIDNEY DISEASE, UNSPECIFIED (3) COPD (chronic obstructive pulmonary disease) Code(s): J44.9 - CHRONIC OBSTRUCTIVE PULMONARY DISEASE, UNSPECIFIED Qualifiers: COPD type: COPD with acute lower respiratory infection Qualified Code(s): J44.0 - Chronic obstructive pulmonary disease with acute lower respiratory infection (4) Diabetes mellitus Code(s): E11.9 - TYPE 2 DIABETES MELLITUS WITHOUT COMPLICATIONS Qualifiers: Diabetes mellitus type: type 2 Diabetes mellitus usp insulin use: unspecified usp insulin use status Diabetes mellitus complication status : with skin complications Diabetes mellitus complication detail: with dermatitis Qualified Code(s): E11.620 - Type 2 diabetes mellitus with diabetic dermatitis (5) Hyperlipidemia Code(s): E78.5 - HYPERLIPIDEMIA, UNSPECIFIED Qualifiers: Hyperlipidemia type: pure hypercholesterolemia Qualified Code(s): E78.00 - Pure hypercholesterolemia, unspecified (6) Hypertension Code(s): I10 - ESSENTIAL (PRIMARY) HYPERTENSION Qualifiers: Hypertension type: essential hypertension Qualified Code(s): I10 - Essential (primary) hypertension Assessment/Plan Fever COPD Chronic Cough due to Chronic Bronchitis Chronic Hypoxic Respiratory Failure Acute on Chronic Renal Failure HTN DM Hyperlipidemia Severe [facility] refusing PAP therapy despite explaining Risks/Benefits - Symbicort 160/4.5mcg 2 puffs BID - BD [place] - Fluticasone nasal sprays - O2 to keep SpO2 >90% - Will need outpatient PFTs and imaging to followup paratracheal node - DVT prophylaxis Dr Bailey
[2018-06-12 13:40] LABS: BASO % 0.9 % (0-2.0); EOS % 8.2 % (0-4.5); HEMATOCRIT 38.7 % (35.4-49); HEMOGLOBIN 11.8 GM/dL (11.7-16.9); LYMPH % 18.5 % (8-40); MCH 22.3 pg (25.7-33.7); MCHC 30.4 g/dl (32.0-35.9); MEAN CELL VOLUME 73.3 fl (80-96); MEAN PLT VOLUME 9.5 fl (7.5-11.1); MONO % 6.3 % (3.8-10.2); NEUT % 66.1 % (42.8-82.8); PLATELET COUNT 201 K/MM3 (134-434); RBC 5.29 M/mm3 (4.00-5.60); RDW 18.8 % (11.9-15.9)
--- NOTE | 2018-06-12 13:50 | PN ---
Progress Note, Physician Chief Complaint: The patient seen and examined in his room. Has itching of his body. Sitting by his bed. Right foot dressing in place. Says it is quite painful. History of Present Illness: 67 year old AA gentleman with hx of CKD stage 4 (baseline Cr 1.6), Hypertension , DM, COPD,PVD s/p recent amputation who presented with fevers with JESÚS. Lately his Serum Cr was worsening, with tendency for mild Hyperkalemia. Off Allopurinol now. - Current Medication List Current Medications: Active Medications Allopurinol (Zyloprim -) 300 mg PO DAILY [facility] Last Admin: 06/12/18 10:27 Dose: 300 mg Amlodipine Besylate (Norvasc -) 5 mg PO DAILY [facility] Last Admin: 06/12/18 10:27 Dose: 5 mg Ascorbic Acid (Vitamin C -) 500 mg PO BID [facility] Last Admin: 06/12/18 10:27 Dose: 500 mg Atorvastatin Calcium (Lipitor -) 20 mg PO [facility] Last Admin: 06/11/18 21:38 Dose: 20 mg Budesonide/Formoterol Fumarate (Symbicort 160/4.5mcg -) 2 puff IH BID [facility] Last Admin: 06/12/18 10:27 Dose: 2 puff Clopidogrel Bisulfate (Plavix -) 75 mg PO DAILY [facility] Last Admin: 06/12/18 10:27 Dose: 75 mg Collagenase (Santyl -) 1 applic TP DAILY [facility]; Protocol Last Admin: 06/11/18 13:00 Dose: 1 applic Docusate Sodium (Colace -) 300 mg PO [facility] Last Admin: 06/11/18 21:37 Dose: 300 mg Ergocalciferol (Drisdol -) 50,000 unit PO Mo@1000 [facility] Last Admin: 06/12/18 10:28 Dose: 50,000 unit Ferrous Sulfate (Feosol -) 325 mg PO BID [facility] Last Admin: 06/12/18 10:27 Dose: 325 mg Fluticasone Propionate (Flonase -) 1 spray NS BID [facility] Last Admin: 06/12/18 10:28 Dose: 1 spray Guaifenesin (Robitussin -) 20 ml PO Q8H PRN PRN Reason: COUGH/CHEST CONGESTION Last Admin: 06/12/18 12:05 Dose: 20 ml Guaifenesin (Mucinex -) 1,200 mg PO BID [facility] Last Admin: 06/12/18 10:27 Dose: 1,200 mg Heparin Sodium (Porcine) (Heparin -) 5,000 unit SQ BID [facility] Last Admin: 06/12/18 10:26 Dose: 5,000 unit Piperacillin Sod/Tazobactam (Sod 2.25 gm/ Dextrose) 50 mls @ 100 mls/hr IVPB Q8H-IV [facility]; Protocol Last Admin: 06/12/18 10:26 Dose: 100 mls/hr Insulin Aspart (Novolog Vial Sliding Scale -) 1 vial SQ ACHS [facility]; Protocol Last Admin: 06/12/18 12:05 Dose: 6 unit Insulin Detemir (Levemir Vial) 32 units SQ AM [facility] Last Admin: 06/12/18 06:11 Dose: 32 unit Memantine (Namenda -) 5 mg PO BID [facility] Last Admin: 06/12/18 10:27 Dose: 5 mg Metoprolol Succinate (Toprol Xl -) 25 mg PO DAILY [facility] Last Admin: 06/12/18 10:27 Dose: 25 mg Oxycodone HCl (Roxicodone -) 10 mg PO Q6H PRN PRN Reason: PAIN LEVEL 7 - 10 Last Admin: 06/12/18 10:59 Dose: 10 mg Pantoprazole Sodium (Protonix -) 40 mg PO DAILY [facility] Last Admin: 06/12/18 10:27 Dose: 40 mg Polyethylene Glycol (Miralax (For Daily Use) -) 17 gm PO DAILY [facility] Last Admin: 06/12/18 10:29 Dose: Not Given Pramipexole Dihydrochloride (Mirapex -) 0.5 mg PO BID [facility] Last Admin: 06/12/18 10:28 Dose: 0.5 mg Pregabalin (Lyrica -) 150 mg PO BID [facility] Last Admin: 06/12/18 10:27 Dose: 150 mg Senna (Senna -) 2 tab PO [facility] Last Admin: 06/11/18 21:38 Dose: 2 tab Tamsulosin HCl (Flomax -) 0.4 mg PO DAILY@0830 [facility] Last Admin: 06/12/18 08:30 Dose: 0.4 mg Trazodone HCl (Desyrel -) 50 mg PO [facility] Last Admin: 06/11/18 21:38 Dose: 50 mg Zinc Sulfate (Orazinc -) 220 mg PO BID [facility] Last Admin: 06/12/18 10:27 Dose: 220 mg - Objective Vital Signs: Vital Signs Temperature 98.1 F 06/12/18 10:00 Pulse Rate 74 06/12/18 10:00 Respiratory Rate 20 06/12/18 10:00 Blood Pressure 135/69 06/12/18 10:00 O2 Sat by Pulse Oximetry (%) 97 06/10/18 21:00 Constitutional: Yes: Calm, [place] Eyes: Yes: Conjunctiva Clear HENT: Yes: Atraumatic Neck: Yes: Trachea Midline Cardiovascular: Yes: S1, S2 Respiratory: Yes: CTA Bilaterally, Diminished Gastrointestinal: Yes: Normal Bowel Sounds, Soft Extremities: Yes: Amputation Neurological: Yes: Alert, Oriented Labs: CBC, BMP 06/12/18 06:25 INR, PTT INR 1.26 (0.83-1.09) H 06/05/18 19:25 Problem List - Problems (1) JESÚS (acute kidney injury) Code(s): N17.9 - ACUTE KIDNEY FAILURE, UNSPECIFIED (2) Fever Code(s): R50.9 - FEVER, UNSPECIFIED Qualifiers: Fever type: unspecified Qualified Code(s): R50.9 - Fever, unspecified (3) Acute kidney injury superimposed on CKD Code(s): N17.9 - ACUTE KIDNEY FAILURE, UNSPECIFIED; N18.9 - CHRONIC KIDNEY DISEASE, UNSPECIFIED (4) Arterial occlusion, lower extremity Code(s): I74.3 - EMBOLISM AND THROMBOSIS OF ARTERIES OF THE LOWER EXTREMITIES (5) Chronic osteomyelitis Code(s): M86.60 - OTHER CHRONIC OSTEOMYELITIS, UNSPECIFIED SITE (6) Diabetic foot infection Code(s): E11.69 - TYPE 2 DIABETES MELLITUS WITH OTHER SPECIFIED COMPLICATION; L08.9 - LOCAL INFECTION OF THE SKIN AND SUBCUTANEOUS TISSUE, UNSP (7) Type 2 diabetes mellitus with diabetic peripheral angiopathy with gangrene Code(s): E11.52 - TYPE 2 DIABETES W DIABETIC PERIPHERAL ANGIOPATHY W [place] (8) Coronary artery disease Code(s): I25.10 - ATHSCL HEART DISEASE OF [place] CORONARY ARTERY W/O ANG PCTRS Qualifiers: Coronary Disease-Associated Artery/Lesion type: [place] artery [place] vs. transplanted heart: [place] heart Associated angina: without angina Qualified Code(s): I25.10 - Atherosclerotic heart disease of [place] coronary artery without angina pectoris (9) Hyperlipidemia Code(s): E78.5 - HYPERLIPIDEMIA, UNSPECIFIED Qualifiers: Hyperlipidemia type: pure hypercholesterolemia Qualified Code(s): E78.00 - Pure hypercholesterolemia, unspecified (10) Hypertension Code(s): I10 - ESSENTIAL (PRIMARY) HYPERTENSION Qualifiers: Hypertension type: essential hypertension Qualified Code(s): I10 - Essential (primary) hypertension (11) Peripheral artery disease Code(s): I73.9 - PERIPHERAL VASCULAR DISEASE, UNSPECIFIED Assessment/Plan 67 year old gentleman with hx of CKD stage 4 (baseline Cr 1.6), Hypertension, DM , COPD, PVD s/p recent amputation who presented with fevers with JESÚS. Acute Kidney Injury, related to multifactorial factors including sepsis, hemodynamic factors that reduce renal perfusion. There was acute worsening of Azotemia for the past few days... Also noted is Eosinophilia and tendency for Hyperkalemia. Off Allopurinol now. Urinary Eosinophils pending. Off Allopurinol. Trend the renal functions. Will follow with you. Yuli Rodriguez MD
[2018-06-12] MEDS: COLLAGENASE CLOSTRIDIUM HIST. 30 GRAMS TUBE TP SCH (14:51)
--- NOTE | 2018-06-12 17:15 | PN ---
Progress Note (short form) - Note Progress Note: resting comfortably no further fevers Vital Signs Period Temp Pulse Resp BP Sys/Cintron Pulse Ox Last 24 Hr 97.7 F-98.1 F 68-76 18-20 124-145/67-71 cor-rrr lungs decreased bs at bases abd soft,nt ext dressing intact (nurse reports lots of draiange) CBC, BMP 06/12/18 13:17 06/12/18 06:25 Laboratory Tests 06/07/18 06/07/18 05:22 05:22 ESR 58 H C-Reactive Protein 8.1 H Microbiology 06/05/18 19:25 Blood - Peripheral Venous Blood Culture - Final NO GROWTH AFTER 5 DAYS INCUBATION 06/05/18 19:25 Blood - Peripheral Venous Blood Culture - Final NO GROWTH AFTER 5 DAYS INCUBATION 06/06/18 17:30 Wound Gram Stain - Final 06/06/18 17:30 Wound Wound Culture - Final Morganella Morganii 06/07/18 11:08 Urine For Antigen Detection Legionella Antigen - Final 06/07/18 11:08 Urine For Antigen Detection Streptococcus pneumoniae Antigen (M - Final 06/05/18 18:39 Urine - Urine Clean Catch Urine Culture - Final NO GROWTH OBTAINED 06/05/18 20:10 Nasopharyngeal Swab Influenza Types A,B Antigen - Final 06/05/18 20:10 Nasopharyngeal Swab - Final MRI +osteo chest ct no infiltrate a/p fevers-no clear source-resolved sherman-resolved history of left TMA diabetes prior cultures reviewed would plan cefepime 2 grams q12h as outpt - will need 5 weeks spoke with coram and antiiboitc orders/lab orders given patient can f/u in the office with Dr Domínguez or can see us when he comes to woundcare to see Dr Sanders Problem List - Problems (1) Fever Code(s): R50.9 - FEVER, UNSPECIFIED Qualifiers: Fever type: unspecified Qualified Code(s): R50.9 - Fever, unspecified (2) Chronic cough Code(s): R05 - COUGH (3) Wound, open, foot Code(s): S91.309A - UNSPECIFIED OPEN WOUND, UNSPECIFIED FOOT, INITIAL ENCOUNTER Qualifiers: Encounter type: initial encounter Laterality: right Qualified Code(s): S91.301A - Unspecified open wound, right foot, initial encounter (4) Acute kidney injury superimposed on CKD Code(s): N17.9 - ACUTE KIDNEY FAILURE, UNSPECIFIED; N18.9 - CHRONIC KIDNEY DISEASE, UNSPECIFIED
[2018-06-12] MEDS ORDERED: INSULIN (NOVOLOG) ASPART 100 UNITS/ML 10ML VIAL SQ ONE (21:38)
[2018-06-12] MEDS: ATORVASTATIN CA 20 MG TABLET (FP) PO SCH (22:03)
[2018-06-12] MEDS: SENNOSIDES 8.6MG TABLET (FP) PO SCH (22:03)
[2018-06-12] MEDS: DOCUSATE SODIUM 100 MG CAPSULE (FP) PO SCH (22:03)
[2018-06-12] MEDS: traZODone HCL 50 MG TABLET (FP) PO SCH (22:03)
[2018-06-12] MEDS: CEFEPIME 2 GM in DEXTROSE 5%-WATER 100 ML IVPB SCH (22:03)
[2018-06-13] MEDS: INSULIN SLIDING SCALE (NOVOLOG) 1 VIAL SQ SCH ×2 (06:48→12:46)
[2018-06-13] MEDS: INSULIN (LEVEMIR) 100 UNITS/ML UNITS SQ SCH (06:49)
[2018-06-13 08:11] LABS: BASO % 1.3 % (0-2.0); EOS % 7.7 % (0-4.5); HEMATOCRIT 38.7 % (35.4-49); HEMOGLOBIN 11.4 GM/dL (11.7-16.9); LYMPH % 16.1 % (8-40); MCH 21.4 pg (25.7-33.7); MCHC 29.4 g/dl (32.0-35.9); MEAN CELL VOLUME 72.6 fl (80-96); MEAN PLT VOLUME 9.8 fl (7.5-11.1); MONO % 6.4 % (3.8-10.2); NEUT % 68.5 % (42.8-82.8); PLATELET COUNT 198 K/MM3 (134-434); RBC 5.33 M/mm3 (4.00-5.60); RDW 18.6 % (11.9-15.9); WHITE BLOOD COUNT 8.7 K/mm3 (4.0-10.0)
[2018-06-13 08:58] LABS: ALBUMIN 2.9 g/dl (3.4-5.0); ALK PHOS 253 U/L (45-117); ANION GAP 8 MMOL/L (8-16); BILIRUBIN,TOTAL 0.3 mg/dL (0.2-1); BLOOD UREA NITROGEN 28 mg/dL (7-18); CALCIUM 8.8 mg/dL (8.5-10.1); CHLORIDE 106 mmol/L (98-107); CO2 24 mmol/L (21-32); CREATININE 1.6 mg/dL (0.55-1.3); GLUCOSE,RANDOM 256 mg/dL (74-106); POTASSIUM 5.2 mmol/L (3.5-5.1); SGOT/AST 10 U/L (15-37); SGPT/ALT 13 U/L (13-61); SODIUM 138 mmol/L (136-145); TOT PROT 7.4 g/dl (6.4-8.2)
[2018-06-13] MEDS: TAMSULOSIN HCL 0.4 MG CAP PO SCH (10:52)
[2018-06-13] MEDS: POLYETHYLENE GLYCOL 3350 119 GM BTL PO SCH (10:54)
[2018-06-13] MEDS ORDERED: PT OWN MED DRAWER 7, Y5N ONE (10:58)
[2018-06-13] MEDS: CEFEPIME 2 GM in DEXTROSE 5%-WATER 100 ML IVPB SCH (10:59)
[2018-06-13] MEDS: HEPARIN NA (PORCINE) 5,000 UNITS/ML 1ML VIAL SQ SCH (11:00)
[2018-06-13] MEDS: ASCORBIC ACID 500 MG TABLET (FP) PO SCH (11:00)
[2018-06-13] MEDS: PRAMIPEXOLE DIHYDROCHLORIDE 0.5 MG TABLET PO SCH (11:00)
[2018-06-13] MEDS: CLOPIDOGREL BISULFATE 75 MG TABLET (FP) PO SCH (11:00)
[2018-06-13] MEDS: PANTOPRAZOLE 40 MG TABLET (FP) PO SCH (11:01)
[2018-06-13] MEDS: ZINC SULFATE 220 MG CAPSULE (FP) PO SCH (11:01)
[2018-06-13] MEDS: FERROUS SO4 325 MG TABLET (FP) PO SCH (11:01)
[2018-06-13] MEDS: amLODIPine BESYLATE 5 MG TABLET (FP) PO SCH (11:01)
[2018-06-13] MEDS: metoPROLOL SUCCINATE 25 MG TAB.SR.24H (FP) PO SCH (11:01)
[2018-06-13] MEDS: MEMANTINE HCL 5 MG TABLET (UD) PO SCH (11:01)
[2018-06-13] MEDS: FLUTICASONE PROP 0.05% 16 GM NASAL SPRAY NS SCH (11:02)
[2018-06-13] MEDS: BUDESONIDE/FORMETEROL FUMARATE 160/4.5 mcg INHALER IH SCH (11:02)
[2018-06-13] MEDS: guaiFENesin 600 MG TABLET.ER (FP) PO SCH (11:32)
[2018-06-13] MEDS ORDERED: PICC LINE 8 ML FLUSH PROTOCOL IVPUSH PRN (11:44)
[2018-06-13] MEDS ORDERED: oxyCODONE HCL 5 MG TABLET PO PRN (11:45)
--- NOTE | 2018-06-13 13:19 | PN ---
Progress Note, Physician Chief Complaint: patient seen and examined awaiting tunnel cath placement no fever on cefepime for osteo - Current Medication List Current Medications: Active Medications Amlodipine Besylate (Norvasc -) 5 mg PO DAILY [facility] Last Admin: 06/13/18 11:01 Dose: 5 mg Ascorbic Acid (Vitamin C -) 500 mg PO BID [facility] Last Admin: 06/13/18 11:00 Dose: 500 mg Atorvastatin Calcium (Lipitor -) 20 mg PO HS [facility] Last Admin: 06/12/18 22:03 Dose: 20 mg Budesonide/Formoterol Fumarate (Symbicort 160/4.5mcg -) 2 puff IH BID [facility] Last Admin: 06/13/18 11:02 Dose: 2 puff Clopidogrel Bisulfate (Plavix -) 75 mg PO DAILY [facility] Last Admin: 06/12/18 10:27 Dose: 75 mg Collagenase (Santyl -) 1 applic TP DAILY [facility]; Protocol Last Admin: 06/12/18 14:51 Dose: 1 applic Docusate Sodium (Colace -) 300 mg PO [facility] Last Admin: 06/12/18 22:03 Dose: 300 mg Ergocalciferol (Drisdol -) 50,000 unit PO Mo@1000 [facility] Last Admin: 06/12/18 10:28 Dose: 50,000 unit Ferrous Sulfate (Feosol -) 325 mg PO BID [facility] Last Admin: 06/13/18 11:01 Dose: 325 mg Fluticasone Propionate (Flonase -) 1 spray NS BID [facility] Last Admin: 06/13/18 11:02 Dose: 1 spray Guaifenesin (Robitussin -) 20 ml PO Q8H PRN PRN Reason: COUGH/CHEST CONGESTION Last Admin: 06/12/18 12:05 Dose: 20 ml Guaifenesin (Mucinex -) 1,200 mg PO BID [facility] Last Admin: 06/13/18 11:32 Dose: 1,200 mg Heparin Sodium (Porcine) (Heparin -) 5,000 unit SQ BID [facility] Last Admin: 06/12/18 22:04 Dose: 5,000 unit IV Flush (Picc Line Flush) 8 ml IVPUSH PRN PRN PRN Reason: Protocol Cefepime HCl 2 gm/ Dextrose 100 mls @ 200 mls/hr IVPB BID [facility]; Protocol Last Admin: 06/13/18 10:59 Dose: 200 mls/hr Insulin Aspart (Novolog Vial Sliding Scale -) 1 vial SQ ACHS [facility]; Protocol Last Admin: 06/13/18 12:46 Dose: 8 unit Insulin Detemir (Levemir Vial) 32 units SQ AM [facility] Last Admin: 06/13/18 06:49 Dose: 32 unit Memantine (Namenda -) 5 mg PO BID [facility] Last Admin: 06/13/18 11:01 Dose: 5 mg Metoprolol Succinate (Toprol Xl -) 25 mg PO DAILY [facility] Last Admin: 06/13/18 11:01 Dose: 25 mg Oxycodone HCl (Roxicodone -) 10 mg PO Q6H PRN PRN Reason: PAIN LEVEL 7 - 10 Last Admin: 06/13/18 12:45 Dose: 10 mg Pantoprazole Sodium (Protonix -) 40 mg PO DAILY [facility] Last Admin: 06/13/18 11:01 Dose: 40 mg Polyethylene Glycol (Miralax (For Daily Use) -) 17 gm PO DAILY [facility] Last Admin: 06/13/18 10:54 Dose: Not Given Pramipexole Dihydrochloride (Mirapex -) 0.5 mg PO BID [facility] Last Admin: 06/13/18 11:00 Dose: 0.5 mg Pregabalin (Lyrica -) 150 mg PO BID [facility] Senna (Senna -) 2 tab PO [facility] Last Admin: 06/12/18 22:03 Dose: 2 tab Tamsulosin HCl (Flomax -) 0.4 mg PO DAILY@0830 [facility] Last Admin: 06/13/18 10:52 Dose: 0.4 mg Trazodone HCl (Desyrel -) 50 mg PO [facility] Last Admin: 06/12/18 22:03 Dose: 50 mg Zinc Sulfate (Orazinc -) 220 mg PO BID [facility] Last Admin: 06/13/18 11:01 Dose: 220 mg - Objective Vital Signs: Vital Signs Temperature 97.9 F 06/13/18 06:00 Pulse Rate 77 06/13/18 06:00 Respiratory Rate 20 06/13/18 06:00 Blood Pressure 138/67 06/13/18 06:00 O2 Sat by Pulse Oximetry (%) 96 06/12/18 21:00 Constitutional: Yes: Calm Cardiovascular: Yes: Regular Rate and Rhythm, S1, S2 Respiratory: Yes: CTA Bilaterally Gastrointestinal: Yes: Normal Bowel Sounds, Soft Extremities: Yes: Other (s/p TMA) Neurological: Yes: Alert, Oriented Labs: CBC, BMP 06/13/18 07:30 06/13/18 07:30 INR, PTT INR 1.26 (0.83-1.09) H 06/05/18 19:25 Problem List - Problems (1) Fever Assessment/Plan: blood and wound cultures- no growth wound cultures morganella morgani Microbiology 06/06/18 17:30 Wound Gram Stain - Final 06/06/18 17:30 Wound Wound Culture - Preliminary Morganella Morganii ID eval noted on zosyn switched to cefepime bid tunnel cath and 5 weeks iv abx foot wound- podiatry xray of foot show soft itssue swelling -MRI shows osteo ESR elevated but trending down Code(s): R50.9 - FEVER, UNSPECIFIED Qualifiers: Fever type: unspecified Qualified Code(s): R50.9 - Fever, unspecified (2) JESÚS (acute kidney injury) Assessment/Plan: renal consult appreciate ivf now dc hold arb and diuretic monitor Cr now stable at 1.6 off allopurinol Code(s): N17.9 - ACUTE KIDNEY FAILURE, UNSPECIFIED (3) Diabetes mellitus Assessment/Plan: bgm sliding scale hgba1c 8.8 levemir lyrica bid Code(s): E11.9 - TYPE 2 DIABETES MELLITUS WITHOUT COMPLICATIONS Qualifiers: Diabetes mellitus type: type 2 Diabetes mellitus longterm insulin use: unspecified longterm insulin use status Diabetes mellitus complication status : with skin complications Diabetes mellitus complication detail: with dermatitis Qualified Code(s): E11.620 - Type 2 diabetes mellitus with diabetic dermatitis (4) COPD (chronic obstructive pulmonary disease) Assessment/Plan: bronchodilators chest ct noted - ground glass appearance noted pulm consult- symbicort and fluticasone outpatient PFT and repeat chest ct in 3 months for paratracheal node Code(s): J44.9 - CHRONIC OBSTRUCTIVE PULMONARY DISEASE, UNSPECIFIED Qualifiers: COPD type: COPD with acute lower respiratory infection Qualified Code(s): J44.0 - Chronic obstructive pulmonary disease with acute lower respiratory infection (5) Coronary artery disease Assessment/Plan: lipitor plavix and toprol plavix held today for tunel cath Code(s): I25.10 - ATHSCL HEART DISEASE OF [place] CORONARY ARTERY W/O ANG PCTRS Qualifiers: Coronary Disease-Associated Artery/Lesion type: [place] artery [place] vs. transplanted heart: [place] heart Associated angina: without angina Qualified Code(s): I25.10 - Atherosclerotic heart disease of [place] coronary artery without angina pectoris
--- NOTE | 2018-06-13 14:11 | PN ---
Progress Note (short form) - Note Progress Note: Renal follow up for JESÚS Pt seen and examined at the bedside no acute complaints feels well for discharge today making urine w/o difficulty Vital Signs Temperature 97.9 F 06/13/18 06:00 Pulse Rate 86 06/13/18 14:05 Respiratory Rate 20 06/13/18 14:05 Blood Pressure 146/71 06/13/18 14:05 O2 Sat by Pulse Oximetry (%) 99 06/13/18 14:05 Intake & Output 06/10/18 06/11/18 06/12/18 06/13/18 23:59 23:59 23:59 23:59 Intake Total 4110 779 1873 850 Output Total 1650 2250 500 600 Balance -600 -1300 850 250 NAD no Le edema CBC, BMP 06/13/18 07:30 06/13/18 07:30 Current Medications Amlodipine Besylate (Norvasc -) 5 mg PO DAILY [facility] Last Admin: 06/13/18 11:01 Dose: 5 mg Ascorbic Acid (Vitamin C -) 500 mg PO BID [facility] Last Admin: 06/13/18 11:00 Dose: 500 mg Atorvastatin Calcium (Lipitor -) 20 mg PO HS [facility] Last Admin: 06/12/18 22:03 Dose: 20 mg Budesonide/Formoterol Fumarate (Symbicort 160/4.5mcg -) 2 puff IH BID [facility] Last Admin: 06/13/18 11:02 Dose: 2 puff Clopidogrel Bisulfate (Plavix -) 75 mg PO DAILY [facility] Last Admin: 06/12/18 10:27 Dose: 75 mg Collagenase (Santyl -) 1 applic TP DAILY [facility]; Protocol Last Admin: 06/12/18 14:51 Dose: 1 applic Docusate Sodium (Colace -) 300 mg PO HS [facility] Last Admin: 06/12/18 22:03 Dose: 300 mg Ergocalciferol (Drisdol -) 50,000 unit PO Mo@1000 [facility] Last Admin: 06/12/18 10:28 Dose: 50,000 unit Ferrous Sulfate (Feosol -) 325 mg PO BID [facility] Last Admin: 06/13/18 11:01 Dose: 325 mg Fluticasone Propionate (Flonase -) 1 spray NS BID [facility] Last Admin: 06/13/18 11:02 Dose: 1 spray Guaifenesin (Robitussin -) 20 ml PO Q8H PRN PRN Reason: COUGH/CHEST CONGESTION Last Admin: 06/12/18 12:05 Dose: 20 ml Guaifenesin (Mucinex -) 1,200 mg PO BID [facility] Last Admin: 06/13/18 11:32 Dose: 1,200 mg Heparin Sodium (Porcine) (Heparin -) 5,000 unit SQ BID [facility] Last Admin: 06/12/18 22:04 Dose: 5,000 unit IV Flush (Picc Line Flush) 8 ml IVPUSH PRN PRN PRN Reason: Protocol Cefepime HCl 2 gm/ Dextrose 100 mls @ 200 mls/hr IVPB BID [facility]; Protocol Last Admin: 06/13/18 10:59 Dose: 200 mls/hr Insulin Aspart (Novolog Vial Sliding Scale -) 1 vial SQ ACHS [facility]; Protocol Last Admin: 06/13/18 12:46 Dose: 8 unit Insulin Detemir (Levemir Vial) 32 units SQ AM [facility] Last Admin: 06/13/18 06:49 Dose: 32 unit Memantine (Namenda -) 5 mg PO BID [facility] Last Admin: 06/13/18 11:01 Dose: 5 mg Metoprolol Succinate (Toprol Xl -) 25 mg PO DAILY [facility] Last Admin: 06/13/18 11:01 Dose: 25 mg Oxycodone HCl (Roxicodone -) 10 mg PO Q6H PRN PRN Reason: PAIN LEVEL 7 - 10 Last Admin: 06/13/18 12:45 Dose: 10 mg Pantoprazole Sodium (Protonix -) 40 mg PO DAILY [facility] Last Admin: 06/13/18 11:01 Dose: 40 mg Polyethylene Glycol (Miralax (For Daily Use) -) 17 gm PO DAILY [facility] Last Admin: 06/13/18 10:54 Dose: Not Given Pramipexole Dihydrochloride (Mirapex -) 0.5 mg PO BID [facility] Last Admin: 06/13/18 11:00 Dose: 0.5 mg Pregabalin (Lyrica -) 150 mg PO BID [facility] Senna (Senna -) 2 tab PO HS [facility] Last Admin: 06/12/18 22:03 Dose: 2 tab Tamsulosin HCl (Flomax -) 0.4 mg PO DAILY@0830 [facility] Last Admin: 06/13/18 10:52 Dose: 0.4 mg Trazodone HCl (Desyrel -) 50 mg PO HS [facility] Last Admin: 06/12/18 22:03 Dose: 50 mg Zinc Sulfate (Orazinc -) 220 mg PO BID [facility] Last Admin: 06/13/18 11:01 Dose: 220 mg 67 year old gentleman with hx of CKD stage 4 (baseline Cr 1.6), Hypertension, DM , COPD, PVD s/p recent amputation who presented with fevers with JESÚS. #JESÚS on CKD stage 3 likely due to volume depletion in setting of fever and diuretic use (FeNa was 0..61%) #Fevers r/o sepsis #Hypertension #DM #PVD #Mild Hyperkalemia Renal function improved and stable will likely need to be restarted on diuretics as an outpatient based on LE swelling to follow up in our office in 2 weeks advised to maintain a low potassium diet Deven Layton DO
[2018-06-13 14:55] VITALS: BP 138/80; PULSE 70; TEMP 98.3
[2018-06-13] MEDS: COLLAGENASE CLOSTRIDIUM HIST. 30 GRAMS TUBE TP SCH (16:30)
[2018-06-13] MEDS ORDERED: PREGABALIN 75 MG CAPSULE PO SCH (22:00)
== END 2018-06-13 17:09 | disposition home or self-care (01) | DRG 638 ==
LOC: JER 17:51 → JERBED 22:51 → OBSVTOIN 06-06 12:33 → J5S 06-07 19:04
PROVIDERS: ADMIT Internal Medicine; ATTEND Family Medicine
PROC: 02HV33Z Insertion of Infusion Device into Superior Vena Cava, Percutaneous Approach (ICD-10-PCS; principal; 2018-06-13)
DX: E11.69 Type 2 diabetes mellitus with other specified complication (principal); M86.60 Other chronic osteomyelitis, unspecified site; I69.354 Hemiplegia and hemiparesis following cerebral infarction affecting left non-dominant side; J44.0 Chronic obstructive pulmonary disease with (acute) lower respiratory infection; J96.11 Chronic respiratory failure with hypoxia; L97.528 Non-pressure chronic ulcer of other part of left foot with other specified severity; E11.51 Type 2 diabetes mellitus with diabetic peripheral angiopathy without gangrene; N17.9 Acute kidney failure, unspecified; N18.4 Chronic kidney disease, stage 4 (severe); I74.3 Embolism and thrombosis of arteries of the lower extremities; E11.621 Type 2 diabetes mellitus with foot ulcer; E11.620 Type 2 diabetes mellitus with diabetic dermatitis; G20 Parkinson's disease; I25.10 Atherosclerotic heart disease of native coronary artery without angina pectoris; E78.5 Hyperlipidemia, unspecified; S91.301A Unspecified open wound, right foot, initial encounter; J84.10 Pulmonary fibrosis, unspecified; R05 Cough; M10.9 Gout, unspecified; E11.40 Type 2 diabetes mellitus with diabetic neuropathy, unspecified; E83.42 Hypomagnesemia; D64.9 Anemia, unspecified; G47.30 Sleep apnea, unspecified; I12.9 Hypertensive chronic kidney disease with stage 1 through stage 4 chronic kidney disease, or unspecified chronic kidney disease; E11.22 Type 2 diabetes mellitus with diabetic chronic kidney disease; G47.33 Obstructive sleep apnea (adult) (pediatric); E87.5 Hyperkalemia; Z87.442 Personal history of urinary calculi; Z99.81 Dependence on supplemental oxygen; Z89.422 Acquired absence of other left toe(s); Z89.431 Acquired absence of right foot; Z87.891 Personal history of nicotine dependence
CPT/HCPCS: 36415; 36558; 71045-TC-FY; 71250-TC; 73630-TC-LT; 73630-TC-RT-FY; 73718-TC; 77001-TC-FY; 80048; 80053; 81003; 81015; 82272; 82570; 82728; 82962; 83036; 83540; 83550; 83605; 83735; 84100; 84156; 84300; 84484; 84550; 85025; 85610; 85651; 85730; 86140; 87040; 87070; 87086; 87186; 87205; 87804; 87899; 93005; 93010; 94640; 99285-25; C1751; G0378; G0480; J1644; J7030

== ENCOUNTER 2018-06-19 08:04 | Emergency (ER) | payer OTHER, BC ==
[2018-06-19 08:13] VITALS: BMI 27.1
--- NOTE | 2018-06-19 08:24 | PDOC ---
History of Present Illness - General Chief Complaint: Wound Stated Complaint: WOUND - History of Present Illness Initial Comments: The patient is a 67M who presents from wound clinic for evaluation of bleeding from his R TMA wound. Surgery several months ago, complicated by osteo. Patient on IV abx at home. PICC line in place. Patient's fiance reports that wound only bleeds when patient attempts to walk on it. Patient denies pain at the site of the wound, purulent discharge, increased swelling, or redness. Denies fevers, chills, SILVESTRE, changes in vision, chest pain, SOB, abdominal pain, N /V/C/D, or worsening pain in his extremities Patient here for hyperbaric treatment. Patient changing wound dressing Q2day w/ help of fiance. Surgeon: Dr. Sanders 06/19/18 09:22 Past History - Past Medical History Allergies/Adverse Reactions: Allergies Allergy/AdvReac Type Severity Reaction Status Date / Time No Known Drug Allergies Allergy Verified 06/19/18 08:10 Home Medications: Ambulatory Orders Tamsulosin HCl [Flomax -] 0.4 mg PO DAILY 05/11/16 traZODone HCL [Desyrel -] 50 mg PO HS 05/11/16 Metoprolol Succinate [Toprol XL -] 25 mg PO DAILY tab.sr.24h 07/19/16 Amlodipine Besylate [Norvasc -] 5 mg PO DAILY tablet 10/29/16 Pantoprazole Sodium [Protonix] 40 mg PO DAILY 01/25/17 Furosemide [Lasix] 20 mg PO DAILY #0 mg 03/08/17 Pregabalin [Lyrica -] 150 mg PO BID 05/11/17 Ferrous Sulfate [Feosol] 325 mg PO BID [facility] 11/11/17 Ergocalciferol (Vitamin D2) [Drisdol] 1 tab PO WEEKLY 01/11/18 Pramipexole Di-HCl [Mirapex] 0.5 mg PO DAILY 01/11/18 Albuterol 2.5/Ipratropium 0.5 [Duoneb -] 1 amp NEB RQID amp 03/02/18 Polyethylene Glycol 3350 [Miralax 119 gm Btl -] 17 gm PO DAILY bottle 03/02/18 Sennosides [Senna -] 2 tab PO HS tablet 03/02/18 Zinc Sulfate [Orazinc -] 220 mg PO BID capsule 03/02/18 Aclidinium [place] [Tudorza Pressair] 400 mcg IH DAILY 04/10/18 Acetaminophen 650 mg PO Q6H PRN 04/11/18 Ascorbic Acid [Vitamin C -] 500 mg PO BID 04/11/18 Atorvastatin Ca [Lipitor] 20 mg PO HS 04/11/18 Clopidogrel Bisulfate [Plavix -] 75 mg PO DAILY 04/11/18 Docusate Sodium [Colace -] 300 mg PO HS 04/11/18 Memantine HCl 5 mg PO BID 04/11/18 oxyCODONE HCL [Roxicodone -] 10 mg PO Q6H PRN MDD 4 04/11/18 Insulin (Levemir) [Levemir Vial] 32 units SQ AM 06/06/18 Budesonide/Formeterol Fumarate [SYMBICORT 160/4.5mcg -] 2 puff IH BID #1 inhaler MDD 2 06/13/18 Fluticasone Prop 0.05% Nasal [Flonase -] 1 spray NS BID #1 spray 06/13/18 Anemia: Yes Asthma: Yes Cancer: No Cardiac Disorders: Yes (CAD) CVA: Yes (x5; residual L sided weakness) COPD: Yes (3L O2 NC AT HOME AT NIGHT) CHF: No DVT: No Dementia: No Diabetes: Yes (IDDM) GI Disorders: No Disorders: Yes (kidney stones; JESÚS) HTN: Yes Hypercholesterolemia: Yes Liver Disease: No Seizures: No Thyroid Disease: No - Surgical History Abdominal Surgery: Yes (Hernia repair) Appendectomy: Yes Cardiac Surgery: No Cholecystectomy: Yes Lung Surgery: No Neurologic Surgery: No Orthopedic Surgery: (Left 2nd toe amputation) - Immunization History Immunization Up to Date: Yes - Suicide/Smoking/Psychosocial Hx Smoking Status: No Smoking History: Former smoker Have you smoked in the past 12 months: No Number of Cigarettes Smoked Daily: 3 If you are a former smoker, when did you quit?: 2017 Information on smoking cessation initiated: No 'Breaking Loose' booklet given: 08/07/17 Hx Alcohol Use: No Drug/Substance Use Hx: No Substance Use Type: None Hx Substance Use Treatment: No Review of Systems - Review of Systems Able to Perform ROS?: Yes Comments:: GENERAL/CONSTITUTIONAL: No fever or chills. No weakness HEAD, EYES, EARS, NOSE AND THROAT: No change in vision. No ear pain or discharge. No sore throat CARDIOVASCULAR: No chest pain or shortness of breath RESPIRATORY: No cough, wheezing, or hemoptysis GASTROINTESTINAL: No nausea, vomiting, diarrhea or constipation GENITOURINARY: No dysuria, frequency, or change in urination NEUROLOGIC: No headache, vertigo, loss of consciousness, or change in strength/ sensation ENDOCRINE: No increased thirst. No abnormal weight change HEMATOLOGIC/LYMPHATIC: No anemia, or history of blood clots ALLERGIC/IMMUNOLOGIC: No hives or skin allergy 06/19/18 08:23 *Physical Exam - Vital Signs Last Vital Signs Temp Pulse Resp BP Pulse Ox 97.4 F L 68 20 141/83 95 06/19/18 08:10 06/19/18 08:10 06/19/18 08:10 06/19/18 08:10 06/19/18 08:10 - Physical Exam Comments: GENERAL: Awake, alert, and fully oriented, in no acute distress HEAD: No signs of trauma, normocephalic, atraumatic EYES: PERRLA, EOMI, sclera anicteric, conjunctiva clear ENT: Hearing grossly normal, nares patent, oropharynx clear without exudates. Moist mucosa LUNGS: No distress, speaks full sentences, clear to auscultation bilaterally HEART: Regular rate and rhythm, normal S1 and S2, no murmurs, rubs or gallops, peripheral pulses normal and equal bilaterally CHEST: PICC line in place w/o surrounding erythema, swelling, warmth ABDOMEN: Soft, nontender, normoactive bowel sounds. No guarding, no rebound. No masses EXTREMITIES: RLE s/p TMA in January. Wound with well granulated wound bed. No evidence of purulence or infection. No warmth or tracking erythema. Compartments soft and compressible, pain within proportion, no pain to passive stretch. No overly foul odor. NEUROLOGICAL: Cranial nerves II through XII grossly intact. Normal speech, normal gait, no focal sensorimotor deficits 06/19/18 08:23 Medical Decision Making - Medical Decision Making The patient is a 67m who presents for evaluation of bleeding from his R TMA wound. The patient is scheduled for a hyperbaric treatment today. Wound w/o signs of infection. No fluctuance, no purulence. Small serosanguinous discharge. Wound Hemostatic s/ p cleaning with saline and gauze. Wound re-dressed W2D with guaze, abd pad, and kerlix Plan for D/C to wound care/hyperbarics Plan discussed w/ patient who is in agreement and verbalizes understanding Counseled patient to reduce/restrict bearing weight on the extremity until it is better healed to decrease the incidents of bleeding to promote healing Discharge instructions and return precautions given Dispo: D/C to make hyperbaric appointment 06/19/18 08:23 *DC/Admit/Observation/Transfer Diagnosis at time of Disposition: Chronic wound of extremity - Discharge Dispostion Disposition: HOME Condition at time of disposition: Stable Decision to Admit order: No - Referrals Referrals: Jay Sanders MD [Staff Physician] - - Patient Instructions Printed Discharge Instructions: How to Change a Wet-to-dry Wound Dressing Additional Instructions: You were seen in the Emergency Department today for bleeding from your wound. Please reduce/restrict bearing weight on the extremity until it is better healed to decrease the incidents of bleeding to promote healing. Please use your walker to assist with ambulation as well as aid while ambulating. Please return to the Emergency Department if you develop fevers, worsening symptoms, or new concerning symptoms. - Post Discharge Activity
--- NOTE | 2018-06-19 08:37 | PDOC ---
Attending Attestation - Resident Resident Name: Abimael Saez - ED Attending Attestation I have performed the following: I have examined & evaluated the patient, The case was reviewed & discussed with the resident, I agree w/resident's findings & plan, Exceptions are as noted - HPI HPI: 06/19/18 08:38 67y M hx of ckd, pvd, htn, hl, was at wound care for hyperbaric therapy, sent to the ED for bleeding wound. On Abx for osteomyelitis from recent admission for 06/13/18. pt denies any increased pain. noes he has been walking on his stump. no other discharge, smeells, fever/chills. exam: no distress EXT: RLE - stump is pink, with some clotted blood, not warm/tender/indurated to palpation, no flucautnce, no discharged expressed plan: will dc up to wound care to cintinue his treatment n osigns of infection - Physicial Exam PE: 06/23/18 17:06 see dimas - Medical Decision Making 06/23/18 17:06 see above
[2018-06-19 09:37] VITALS: BP 130/87; PULSE 66; TEMP 97.6
== END 2018-06-19 09:37 | disposition home or self-care (01) ==
LOC: JER 08:04
DX: T81.89XA Other complications of procedures, not elsewhere classified, initial encounter (principal); T87.81 Dehiscence of amputation stump; Y83.5 Amputation of limb(s) as the cause of abnormal reaction of the patient, or of later complication, without mention of misadventure at the time of the procedure; I25.10 Atherosclerotic heart disease of native coronary artery without angina pectoris; I13.10 Hypertensive heart and chronic kidney disease without heart failure, with stage 1 through stage 4 chronic kidney disease, or unspecified chronic kidney disease; N17.9 Acute kidney failure, unspecified; E78.00 Pure hypercholesterolemia, unspecified; E11.9 Type 2 diabetes mellitus without complications; Z79.4 Long term (current) use of insulin; Z87.891 Personal history of nicotine dependence; E11.51 Type 2 diabetes mellitus with diabetic peripheral angiopathy without gangrene; L97.512 Non-pressure chronic ulcer of other part of right foot with fat layer exposed
CPT/HCPCS: 82962; 99282-25; G0277

== ENCOUNTER 2018-06-24 08:28 | Inpatient (IN) | payer OTHER, BC ==
[2018-06-24] MEDS ORDERED: FUROSEMIDE 40 MG/4 ML INJECTABLE VIAL ONE (08:34)
--- NOTE | 2018-06-24 08:42 | PDOC ---
History of Present Illness - General Chief Complaint: Shortness of Breath Stated Complaint: DIFFICULTY BREATHING Time Seen by Provider: 06/24/18 08:42 History Source: Family, Old Records Exam Limitations: Clinical Condition - History of Present Illness Initial Comments: 06/24/18 09:53 This is a 67 year old male with a significant past medical history of HTN, HLD, COPD, on 3 L of Oxygen at home, DM with foot wounds s/p R transmet amputation, osteomyelitis, who presented to the ED BIBA found be his neighbour. He was found to be hypoxic to 85%, placed on Oxygen by EMS. On arrival to the hospital the patient was not able to provide history, answer any of our questions. He was placed on Bi-Pap, sepsis protocol was ordered, ABGs, CXR, CT head, urine toxicology. 06/24/18 11:05 Chemistry is back, the patient has elevated Cr, BUN, acidosis, elevated methemoglobin level to 9.43. Poison control was consulted. No further interventions, including methylene blue was recommended. Contact nr for MD publications inspector [phone] Dr Yasmeen Sheikh. Differential diagnosis includes sepsis, aspiration PNA, COPD exacerbation, stroke. Vanc and Zosyn was given to empirically cover. ICU resident Dr Jordan was called tor admission to ICU. 06/24/18 11:12 Severity: severe Past History - Past Medical History Allergies/Adverse Reactions: Allergies Allergy/AdvReac Type Severity Reaction Status Date / Time No Known Drug Allergies Allergy Verified 06/19/18 08:10 Home Medications: Ambulatory Orders Tamsulosin HCl [Flomax -] 0.4 mg PO DAILY 05/11/16 traZODone HCL [Desyrel -] 50 mg PO HS 05/11/16 Metoprolol Succinate [Toprol XL -] 25 mg PO DAILY tab.sr.24h 07/19/16 Amlodipine Besylate [Norvasc -] 5 mg PO DAILY tablet 10/29/16 Pantoprazole Sodium [Protonix] 40 mg PO DAILY 01/25/17 Furosemide [Lasix] 20 mg PO DAILY #0 mg 03/08/17 Pregabalin [Lyrica -] 150 mg PO BID 05/11/17 Ferrous Sulfate [Feosol] 325 mg PO BID ud 11/11/17 Ergocalciferol (Vitamin D2) [Drisdol] 1 tab PO WEEKLY 01/11/18 Pramipexole Di-HCl [Mirapex] 0.5 mg PO DAILY 01/11/18 Albuterol 2.5/Ipratropium 0.5 [Duoneb -] 1 amp NEB RQID amp 03/02/18 Polyethylene Glycol 3350 [Miralax 119 gm Btl -] 17 gm PO DAILY bottle 03/02/18 Sennosides [Senna -] 2 tab PO HS tablet 03/02/18 Zinc Sulfate [Orazinc -] 220 mg PO BID capsule 03/02/18 Aclidinium [place] [Tudorza Pressair] 400 mcg IH DAILY 04/10/18 Acetaminophen 650 mg PO Q6H PRN 04/11/18 Ascorbic Acid [Vitamin C -] 500 mg PO BID 04/11/18 Atorvastatin Ca [Lipitor] 20 mg PO HS 04/11/18 Clopidogrel Bisulfate [Plavix -] 75 mg PO DAILY 04/11/18 Docusate Sodium [Colace -] 300 mg PO HS 04/11/18 Memantine HCl 5 mg PO BID 04/11/18 oxyCODONE HCL [Roxicodone -] 10 mg PO Q6H PRN MDD 4 04/11/18 Insulin (Levemir) [Levemir Vial] 32 units SQ AM 06/06/18 Budesonide/Formeterol Fumarate [SYMBICORT 160/4.5mcg -] 2 puff IH BID #1 inhaler MDD 2 06/13/18 Fluticasone Prop 0.05% Nasal [Flonase -] 1 spray NS BID #1 spray 06/13/18 Anemia: Yes Asthma: Yes Cancer: No Cardiac Disorders: Yes (CAD) CVA: Yes (x5; residual L sided weakness) COPD: Yes (3L O2 NC AT HOME AT NIGHT) CHF: No DVT: No Dementia: No Diabetes: Yes (IDDM) GI Disorders: No Disorders: Yes (kidney stones; JESÚS) HTN: Yes Hypercholesterolemia: Yes Liver Disease: No Seizures: No Thyroid Disease: No - Surgical History Abdominal Surgery: Yes (Hernia repair) Appendectomy: Yes Cardiac Surgery: No Cholecystectomy: Yes Lung Surgery: No Neurologic Surgery: No Orthopedic Surgery: (Left 2nd toe amputation) - Immunization History Immunization Up to Date: Yes - Suicide/Smoking/Psychosocial Hx Smoking Status: No Smoking History: Never smoked Have you smoked in the past 12 months: No Number of Cigarettes Smoked Daily: 3 If you are a former smoker, when did you quit?: 2017 Information on smoking cessation initiated: No 'Breaking Loose' booklet given: 08/07/17 Hx Alcohol Use: No Drug/Substance Use Hx: No Substance Use Type: None Hx Substance Use Treatment: No Review of Systems - Review of Systems Able to Perform ROS?: No *Physical Exam - Vital Signs Last Vital Signs Temp Pulse Resp BP Pulse Ox 82 36 H 119/68 85 L 06/24/18 08:33 06/24/18 08:33 06/24/18 08:33 06/24/18 08:33 - Physical Exam General Appearance: Yes: Apparent Distress HEENT: positive: TETO. negative: Scleral Icterus (L) Respiratory/Chest: positive: Labored Respiration, Crackles, Rales, Rhonchi Cardiovascular: positive: Regular Rhythm, Regular Rate, S1, S2. negative: Edema , Murmur Gastrointestinal/Abdominal: positive: Normal Bowel Sounds, Soft Extremity: positive: Other (4 cm wound in RLE, well healing, no drainage, no swelling). negative: Cyanosis, Pedal Edema Neurologic: positive: Confused, Disoriented ED Treatment Course - LABORATORY CBC & Chemistry Diagram: 06/24/18 08:30 06/24/18 08:30 - RADIOLOGY Radiology Studies Ordered: Category Date Time Status CHEST X-RAY PORTABLE* [RAD] Stat Radiology 06/24/18 08:40 Ordered Medical Decision Making - Medical Decision Making 06/24/18 12:17 Dr Vincent- primary team was contacted in regards to admission to ICU. *DC/Admit/Observation/Transfer Diagnosis at time of Disposition: COPD exacerbation, Sepsis, History of transmetatarsal amputation of right foot , Diabetic foot ulcer - Discharge Dispostion Condition at time of disposition: Critical Decision to Admit order: Yes - Referrals Referrals: Johnny Giron MD, MD [Primary Care Provider] - - Patient Instructions - Post Discharge Activity
[2018-06-24] MEDS ORDERED: ALBUTEROL SO4 2.5/IPRATROPIUM 0.5 INH SOL 3 ML VIAL.NEB. NEB ONE ×3 (08:49→11:58)
[2018-06-24] MEDS ORDERED: methylPREDNISolone NA SUCC 125 MG/2 ML VIAL ONE (08:49)
[2018-06-24 09:15] LABS: CARBOXYHEMOGLOBIN 0.8 gm% (0.5-2.0)
[2018-06-24] MEDS ORDERED: methylPREDNISolone NA SUCC 125 MG/2 ML VIAL IVPB ONE (09:15)
[2018-06-24] MEDS ORDERED: SODIUM CHLORIDE 1,000 ML IV STA (09:15)
[2018-06-24 09:27] LABS: INR 1.18 (0.83-1.09)
[2018-06-24 09:29] LABS: ARTERIAL BLD GAS O2 SATURATION 97.1 % (90-98.9); ARTERIAL BLOOD GAS PCO2 50.6 mmHg (35-45)
[2018-06-24 09:30] LABS: ACTIVATED PTT 29.4 SECONDS (25.2-36.5)
[2018-06-24] MEDS ORDERED: VANCOMYCIN 1 GRAM (PRE-DOCKED) 1,000 MG/250 ML BAG IVPB ONE ×2 (09:43→09:50)
[2018-06-24] MEDS ORDERED: PIPERACILLIN/TAZOB 4.5 GM 4.5 GM in DEXTROSE 5%-WATER 100 ML IVPB ONE (09:43)
[2018-06-24] MEDS ORDERED: PIPERACILLIN/TAZOB 4.5 GM 4.5 GM/100 ML BAG IVPB ONE (09:50)
[2018-06-24 09:54] LABS: ALK PHOS 152 U/L (45-117); ANION GAP 15 MMOL/L (8-16); BASO % 0.9 % (0-2.0); BILIRUBIN,TOTAL 0.3 mg/dL (0.2-1); BLOOD UREA NITROGEN 61 mg/dL (7-18); CHLORIDE 104 mmol/L (98-107); CO2 18 mmol/L (21-32); CREATININE 5.7 mg/dL (0.55-1.3); EOS % 2.6 % (0-4.5); GLUCOSE,RANDOM 205 mg/dL (74-106); HEMATOCRIT 37.8 % (35.4-49); LYMPH % 11.1 % (8-40); MCH 22.7 pg (25.7-33.7); MCHC 31.7 g/dl (32.0-35.9); MEAN CELL VOLUME 71.5 fl (80-96); MEAN PLT VOLUME 9.4 fl (7.5-11.1); MONO % 7.1 % (3.8-10.2); N-TERMINAL BNP 5209.7 pg/ml (5-125); NEUT % 78.3 % (42.8-82.8); PLATELET COUNT 93 K/MM3 (134-434); POTASSIUM 5.4 mmol/L (3.5-5.1); RBC 5.29 M/mm3 (4.00-5.60); RDW 18.5 % (11.9-15.9); SGOT/AST 15 U/L (15-37); SGPT/ALT 16 U/L (13-61); SODIUM 137 mmol/L (136-145); TOT PROT 7.3 g/dl (6.4-8.2); WHITE BLOOD COUNT 11.6 K/mm3 (4.0-10.0)
[2018-06-24 09:58] LABS: URINE APPEARANCE SLCLOUDY; URINE COLOR AMBER; URINE GLUCOSE (UA) 2+ (NEGATIVE); URINE KETONE TRACE (NEGATIVE); URINE LEUK ESTERASE TRACE (NEGATIVE); URINE NITRITE NEGATIVE (NEGATIVE); URINE PROTEIN 2+ (NEGATIVE); URINE UROBILINOGEN NEGATIVE mg/dL (0.2-1.0)
--- NOTE | 2018-06-24 10:08 | PDOC ---
Attending Attestation - Resident Resident Name: Monika Kennedy - ED Attending Attestation I have performed the following: I have examined & evaluated the patient, The case was reviewed & discussed with the resident, I agree w/resident's findings & plan, Exceptions are as noted - HPI HPI: 06/24/18 10:08 67-year-old male past medical history of hypertension, hyperlipidemia, COPD, gout, chronic renal disease, stroke with some residual left-sided deficit, pulmonary fibrosis, sleep apnea, diabetes with foot wound status post right transmetatarsal amputation presents with respiratory distress. The patient lives at home by himself. The patient's neighbor did not hear from the patient for several days with the check on. He was found down on the ground. EMS was called the patient brought to the ED. Was noted have O2 saturation of 87% on nonrebreather. The patient is unable to provide review of systems given his altered mental status. - Physicial Exam PE: 06/24/18 10:08 GENERAL: Responds to verbal stimuli, but awakes. Tachypenic. HEAD: No signs of trauma EYES: EOMI, sclera anicteric, conjunctiva clear ENT: Auricles normal inspection, hearing grossly normal, nares patent, NECK: Normal ROM, supple LUNGS: Ronchorous breath sounds bilaterally. HEART: Regular rate and rhythm, normal S1 and S2, no murmurs, rubs or gallops ABDOMEN: Soft, nontender, No guarding, no rebound. No masses EXTREMITIES: Normal range of motion, no edema. R foot s/p transmetatarsal amputation. No signs of infection. NEUROLOGICAL: Cranial nerves II through XII grossly intact. SKIN: Warm, Dry, normal turgor, no rashes or lesions noted. - Critical Care Time Total Critical Care Time: 35 Critical Care Statement: The care of this patient involved high complexity decision making to prevent further life threatening deterioration of the patient 's condition and/or to evaluate & treat vital organ system(s) failure or risk of failure. - Medical Decision Making 06/24/18 10:07 Vital Signs Temp Pulse Resp BP Pulse Ox 98.8 F 69 16 78/54 L 95 06/24/18 09:08 06/24/18 10:07 06/24/18 10:07 06/24/18 10:07 06/24/18 10:07 Patient noted to be somewhat hypotensive and altered. He is also with rhonchorous breath sounds. Differential includes sepsis, pneumonia, COPD exacerbation, intracranial injury, cardiac, metabolic disarray. Incidentally, patient is also noted to have an elevated methemoglobin level. We'll consult the poison control center for further evaluate. The patient will likely need an ICU admission to the hospital. 06/24/18 10:51 Dr. Easley had spoken with Poison Control Center. At this time, because methemoglobin level < 20, pt can be observed. CBC, BMP 06/24/18 08:30 06/24/18 08:30 CMP Sodium 137 mmol/L (136-145) 06/24/18 08:30 Potassium 5.4 mmol/L (3.5-5.1) H 06/24/18 08:30 Chloride 104 mmol/L (98-107) 06/24/18 08:30 Carbon Dioxide 18 mmol/L (21-32) L 06/24/18 08:30 Anion Gap 15 MMOL/L (8-16) 06/24/18 08:30 BUN 61 mg/dL (7-18) H 06/24/18 08:30 Creatinine 5.7 mg/dL (0.55-1.3) H 06/24/18 08:30 Creat Clearance w eGFR 10.00 (>60) 06/24/18 08:30 Random Glucose 205 mg/dL (74-106) H 06/24/18 08:30 Lactic Acid 0.8 mmol/L (0.4-2.0) 06/24/18 08:30 Calcium 8.0 mg/dL (8.5-10.1) L 06/24/18 08:30 Total Bilirubin 0.3 mg/dL (0.2-1) 06/24/18 08:30 AST 15 U/L (15-37) 06/24/18 08:30 ALT 16 U/L (13-61) 06/24/18 08:30 Alkaline Phosphatase 152 U/L (45-117) H 06/24/18 08:30 Troponin I < 0.02 ng/ml (0.00-0.05) 06/24/18 08:30 B-Natriuretic Peptide 5209.7 pg/ml (5-125) H 06/24/18 08:30 Total Protein 7.3 g/dl (6.4-8.2) 06/24/18 08:30 Albumin 3.0 g/dl (3.4-5.0) L 06/24/18 08:30 Urine Test Results Urine Color Gabrielle 06/24/18 09:33 Urine Appearance Slcloudy 06/24/18 09:33 Urine pH 5.0 (5.0-8.0) 06/24/18 09:33 Ur Specific [place] 1.028 (1.010-1.035) 06/24/18 09:33 Urine Protein 2+ (NEGATIVE) H 06/24/18 09:33 Urine Glucose (UA) 2+ (NEGATIVE) H 06/24/18 09:33 Urine Ketones Trace (NEGATIVE) H 06/24/18 09:33 Urine Blood 1+ (NEGATIVE) H 06/24/18 09:33 Urine Nitrite Negative (NEGATIVE) 06/24/18 09:33 Urine Bilirubin 2.0 (<2.0 mg/dL) 06/24/18 09:33 Ur Leukocyte Esterase Trace (NEGATIVE) 06/24/18 09:33 Urine Mucus Rare 06/24/18 09:33 06/24/18 11:22 Chest xray reviewed by me. ?PNA. Pt noted with acute renal failure. Pt give IVF. Will treat as COPD c/ PNA and sepsis. Vanc and zosyn. Influenza negative. ICU consulted. Will admit to ICU Admit. 06/24/18 11:24 Heart Score/ECG Review #1 ECG reviewed & interpreted by me at: 08:50 06/24/18 10:02 NSR 81 with 1st degree AV block, right axis deviation, Q wave III, avF, T wave flat V3, no std/aditya, QTC 427 msec
[2018-06-24 10:18] LABS: URINE HYALINE CAST 25 /lpf; URINE MUCUS RARE
[2018-06-24 11:02] LABS: COCAINE, UR NEGATIVE ng/ml (CUTOFF=300); METHADONE, UR NEGATIVE ng/ml (CUTOFF=300); PHENCYCLIDINE,URINE NEGATIVE ng/ml (CUTOFF=25); URINE AMPHETAMINES NEGATIVE ng/ml (CUTOFF=500); URINE BARBITURATES NEGATIVE ng/ml (CUTOFF=200); URINE BENZODIAZEPINES NEGATIVE ng/ml (CUTOFF=200)
[2018-06-24] MEDS ORDERED: ALBUTEROL SO4 0.083% IH SOL 2.5 MG/3 ML VIAL.NEB. NEB PRN (11:09)
[2018-06-24 11:16] LABS: OPIATES, URI POSITIVE ng/ml (CUTOFF=300)
[2018-06-24] MEDS ORDERED: SODIUM CHLORIDE 500 ML IV STA (11:39)
[2018-06-24] MEDS ORDERED: SODIUM CHLORIDE 1,000 ML IV SCH ×2 (11:45→13:45)
--- NOTE | 2018-06-24 11:51 | EKG ---
Test Reason : Blood Pressure : / mmHG Vent. Rate : 081 BPM Atrial Rate : 081 BPM P-R Int : 200 ms QRS Dur : 072 ms QT Int : 368 ms P-R-T Axes : 034 107 026 degrees QTc Int : 427 ms SINUS RHYTHM WITH MARKED SINUS ARRHYTHMIA RIGHTWARD AXIS POSSIBLE INFERIOR INFARCT , AGE UNDETERMINED ABNORMAL ECG WHEN COMPARED WITH ECG OF 05-JUN-2018 22:21, NO SIGNIFICANT CHANGE WAS FOUND Confirmed by GIORGIO STAHL MD ([id number]) on 06/24/2018 11:51:25 AM Referred By: Confirmed By:GIORGIO STAHL MD
[2018-06-24] MEDS: ALBUTEROL SO4 2.5/IPRATROPIUM 0.5 INH SOL 3 ML VIAL.NEB. NEB SCH ×3 (12:02→20:50)
[2018-06-24 12:07] LABS: RATIO URIN PROTEIN/URIN CREAT 1.16 MG/DL
--- NOTE | 2018-06-24 12:14 | CONSULT ---
Consultation: REQUESTING PROVIDER: CONSULT REQUEST: We have been asked to medically evaluate this patient for ( sepsis and respiratory failure ). Pulm- critical care HISTORY OF PRESENT ILLNESS: history obtained from er notes. Tricia has altered mental status unable answer questions. \ This is a 67 year old male with a significant past medical history of HTN, HLD, COPD, on 3 L of Oxygen at home, DM, PVD, ckd with foot wounds s/p R transmet amputation, osteomyelitis, who presented to the ED BIBA found by his neighbour on ground. He was found to be hypoxic to 85%, placed on Oxygen by EMS. On arrival to the hospital the patient was not able to provide history, answer any of our questions. He was placed on Bi-Pap in er. sepsis protocol was ordered, ABGs, CXR, CT head, urine toxicology were ordered in er. IN ER patiankit found to have sherman on ckd and in sepsis ( source likely pneumonia) Pt also found to be in metabolic acidosis in er In Er pt got 1.5 L of fluid dtsrted on standing of 125ml/hr. Got vanco and zosyn. Got solumedrol. CT head done in er. PAST MEDICAL HISTORY: COPD(3 L O2 at home) asthma pulmonary fibrosis sleep apnea DM CAD CVA(left sided weakness) hypertension hyperlipidemia gout renal insufficiency chronic foot wounds, followed by vasc surgery PAST SURGICAL HISTORY: L second toe amputation appendectomy cholecystectomy 2013 tonsillectomy ?B/L leg stent eye surgery due to fractured orbit 07/2016 R carotid endarterectomy 2012 L femoral artery angioplasty 2014, 2015 R mid tarsal amputation Social History: retired [employer] Smoking: Quit May 2016, smoked 5-7 cig/day Alcohol: Occ Drugs: pt denies REVIEW OF SYSTEMS: un obtainable PHYSICAL EXAMINATION Vital Signs - 24 hr 06/24/18 06/24/18 06/24/18 08:33 08:50 09:02 Temperature Pulse Rate 82 Pulse Rate [ Left] Respiratory 36 H Rate Blood Pressure 119/68 Blood Pressure [Right Arm] O2 Sat by Pulse 85 L 97 99 Oximetry (%) 06/24/18 06/24/18 06/24/18 09:08 09:18 10:07 Temperature 98.8 F Pulse Rate Pulse Rate [ 69 Left] Respiratory 16 Rate Blood Pressure Blood Pressure 91/60 78/54 L [Right Arm] O2 Sat by Pulse 95 Oximetry (%) 06/24/18 06/24/18 10:28 11:20 Temperature Pulse Rate Pulse Rate [ 80 Left] Respiratory 18 Rate Blood Pressure Blood Pressure 94/53 L 112/63 [Right Arm] O2 Sat by Pulse 98 Oximetry (%) GENERAL: Awake, disoriented, not using accessory muscles, on bipap. coughing while trying to speak. HEAD: Normal with no signs of trauma. EYES: Pupils equal, round and reactive to light, EARS, NOSE, THROAT: Ears normal, nares patent, oropharynx clear without exudates. dry mucous membranes. NECK: Normal range of motion,no JVD, LUNGS: b/l decrease air entry, No wheezes, and mild crackles at bases. No accessory muscle use. on bipap, speaking in full sentence. catheter on right side HEART: Regular rate and rhythm, normal S1 and S2, rub or gallop. ABDOMEN: Soft, nontender, obese, normoactive bowel sounds, no guarding, no rebound, no masses. UPPER EXTREMITIES: 2+ pulses, warm, well-perfused. No cyanosis. LOWER EXTREMITIES: b/l skin discoloration. right midtarsal amputation, granulation tissue pesent, no discharge. L side no open wounds. PSYCHIATRIC: Cooperative. Good eye contact. SKIN: Warm, dry, Laboratory Results - last 24 hr 06/24/18 06/24/18 06/24/18 08:00 08:30 08:30 WBC 11.6 H RBC 5.29 Hgb 12.0 Hct 37.8 MCV 71.5 L MCH 22.7 L MCHC 31.7 L RDW 18.5 H Plt Count 93 L D MPV 9.4 Absolute Neuts (auto) 9.1 H Neutrophils % 78.3 Lymphocytes % 11.1 D Monocytes % 7.1 Eosinophils % 2.6 Basophils % 0.9 Nucleated RBC % 0 PT with INR 14.00 H INR 1.18 H PTT (Actin FS) 29.4 Anticoagulation Therapy No Result Required. Puncture Site No Result Required. ABG pH 7.20 L* ABG pCO2 at Pt Temp 50.6 H ABG pO2 at Pt Temp 108.0 H D ABG HCO3 20.0 L ABG O2 Sat (Measured) 97.1 ABG O2 Content 16.1 ABG Base Excess No Result Required. Lee Test No Result Required. Carboxyhemoglobin Methemoglobin O2 Delivery Device No Result Required. Oxygen Flow Rate No Result Required. Vent Mode No Result Required. Vent Rate No Result Required. Mechanical Rate No Result Required. Pressure Support Vent No Result Required. Sodium Potassium Chloride Carbon Dioxide Anion Gap BUN Creatinine Creat Clearance w eGFR Random Glucose Lactic Acid Calcium Total Bilirubin AST ALT Alkaline Phosphatase Ammonia Troponin I C-Reactive Protein B-Natriuretic Peptide Total Protein Albumin Urine Color Urine Appearance Urine pH Ur Specific [place] Urine Protein Urine Glucose (UA) Urine Ketones Urine Blood Urine Nitrite Urine Bilirubin Urine Acetone Urine Urobilinogen Ur Leukocyte Esterase Urine WBC (Auto) Urine RBC (Auto) Hyaline Casts Urine Mucus U Random Total Protein Ur Random Sodium Ur Random Potassium Ur Random Chloride Urine Creatinine Protein/Creatinin Ratio Salicylates Opiates Screen Methadone Screen Acetaminophen Barbiturate Screen Phencyclidine Screen Ur Amphetamines Screen MDMA (Ecstasy) Screen Benzodiazepines Screen Cocaine Screen U Marijuana (THC) Screen Alcohol, Quantitative Influenza A (Rapid) Influenza B (Rapid) 06/24/18 06/24/18 06/24/18 08:30 08:30 08:30 WBC RBC Hgb Hct MCV MCH MCHC RDW Plt Count MPV Absolute Neuts (auto) Neutrophils % Lymphocytes % Monocytes % Eosinophils % Basophils % Nucleated RBC % PT with INR INR PTT (Actin FS) Anticoagulation Therapy Puncture Site ABG pH ABG pCO2 at Pt Temp ABG pO2 at Pt Temp ABG HCO3 ABG O2 Sat (Measured) ABG O2 Content ABG Base Excess Lee Test Carboxyhemoglobin Methemoglobin O2 Delivery Device Oxygen Flow Rate Vent Mode Vent Rate Mechanical Rate Pressure Support Vent Sodium 137 Potassium 5.4 H Chloride 104 Carbon Dioxide 18 L Anion Gap 15 BUN 61 H Creatinine 5.7 H Creat Clearance w eGFR 10.00 Random Glucose 205 H Lactic Acid 0.8 Calcium 8.0 L Total Bilirubin 0.3 AST 15 ALT 16 Alkaline Phosphatase 152 H Ammonia Troponin I < 0.02 C-Reactive Protein 4.5 H B-Natriuretic Peptide 5209.7 H Total Protein 7.3 Albumin 3.0 L Urine Color Urine Appearance Urine pH Ur Specific [place] Urine Protein Urine Glucose (UA) Urine Ketones Urine Blood Urine Nitrite Urine Bilirubin Urine Acetone Urine Urobilinogen Ur Leukocyte Esterase Urine WBC (Auto) Urine RBC (Auto) Hyaline Casts Urine Mucus U Random Total Protein Ur Random Sodium Ur Random Potassium Ur Random Chloride Urine Creatinine Protein/Creatinin Ratio Salicylates Opiates Screen Methadone Screen Acetaminophen Barbiturate Screen Phencyclidine Screen Ur Amphetamines Screen MDMA (Ecstasy) Screen Benzodiazepines Screen Cocaine Screen U Marijuana (THC) Screen Alcohol, Quantitative Influenza A (Rapid) Influenza B (Rapid) 06/24/18 06/24/18 06/24/18 08:30 09:30 09:30 WBC RBC Hgb Hct MCV MCH MCHC RDW Plt Count MPV Absolute Neuts (auto) Neutrophils % Lymphocytes % Monocytes % Eosinophils % Basophils % Nucleated RBC % PT with INR INR PTT (Actin FS) Anticoagulation Therapy Puncture Site ABG pH ABG pCO2 at Pt Temp ABG pO2 at Pt Temp ABG HCO3 ABG O2 Sat (Measured) ABG O2 Content ABG Base Excess Lee Test Carboxyhemoglobin 0.8 Methemoglobin 9.3 H O2 Delivery Device Oxygen Flow Rate Vent Mode Vent Rate Mechanical Rate Pressure Support Vent Sodium Potassium Chloride Carbon Dioxide Anion Gap BUN Creatinine Creat Clearance w eGFR Random Glucose Lactic Acid Calcium Total Bilirubin AST ALT Alkaline Phosphatase Ammonia Troponin I C-Reactive Protein B-Natriuretic Peptide Total Protein Albumin Urine Color Urine Appearance Urine pH Ur Specific [place] Urine Protein Urine Glucose (UA) Urine Ketones Urine Blood Urine Nitrite Urine Bilirubin Urine Acetone Cancelled Urine Urobilinogen Ur Leukocyte Esterase Urine WBC (Auto) Urine RBC (Auto) Hyaline Casts Urine Mucus U Random Total Protein Ur Random Sodium Ur Random Potassium Ur Random Chloride Urine Creatinine Protein/Creatinin Ratio Salicylates Opiates Screen Methadone Screen Acetaminophen Barbiturate Screen Phencyclidine Screen Ur Amphetamines Screen MDMA (Ecstasy) Screen Benzodiazepines Screen Cocaine Screen U Marijuana (THC) Screen Alcohol, Quantitative Influenza A (Rapid) Negative Influenza B (Rapid) Negative 06/24/18 06/24/18 06/24/18 09:33 10:20 10:20 WBC RBC Hgb Hct MCV MCH MCHC RDW Plt Count MPV Absolute Neuts (auto) Neutrophils % Lymphocytes % Monocytes % Eosinophils % Basophils % Nucleated RBC % PT with INR INR PTT (Actin FS) Anticoagulation Therapy Puncture Site ABG pH ABG pCO2 at Pt Temp ABG pO2 at Pt Temp ABG HCO3 ABG O2 Sat (Measured) ABG O2 Content ABG Base Excess Lee Test Carboxyhemoglobin Methemoglobin O2 Delivery Device Oxygen Flow Rate Vent Mode Vent Rate Mechanical Rate Pressure Support Vent Sodium Potassium Chloride Carbon Dioxide Anion Gap BUN Creatinine Creat Clearance w eGFR Random Glucose Lactic Acid Calcium Total Bilirubin AST ALT Alkaline Phosphatase Ammonia 44.80 H Troponin I C-Reactive Protein B-Natriuretic Peptide Total Protein Albumin Urine Color Gabrielle Urine Appearance Slcloudy Urine pH 5.0 Ur Specific [place] 1.028 Urine Protein 2+ H Urine Glucose (UA) 2+ H Urine Ketones Trace H Urine Blood 1+ H Urine Nitrite Negative Urine Bilirubin 2.0 Urine Acetone Urine Urobilinogen Negative Ur Leukocyte Esterase Trace Urine WBC (Auto) 9 Urine RBC (Auto) 3 Hyaline Casts 25 Urine Mucus Rare U Random Total Protein Ur Random Sodium Ur Random Potassium Ur Random Chloride Urine Creatinine Protein/Creatinin Ratio Salicylates Opiates Screen Positive A* Methadone Screen Negative Acetaminophen Barbiturate Screen Negative Phencyclidine Screen Negative Ur Amphetamines Screen Negative MDMA (Ecstasy) Screen Negative Benzodiazepines Screen Negative Cocaine Screen Negative U Marijuana (THC) Screen Negative Alcohol, Quantitative Influenza A (Rapid) Influenza B (Rapid) 06/24/18 06/24/18 06/24/18 10:20 11:19 11:19 WBC RBC Hgb Hct MCV MCH MCHC RDW Plt Count MPV Absolute Neuts (auto) Neutrophils % Lymphocytes % Monocytes % Eosinophils % Basophils % Nucleated RBC % PT with INR INR PTT (Actin FS) Anticoagulation Therapy Puncture Site ABG pH ABG pCO2 at Pt Temp ABG pO2 at Pt Temp ABG HCO3 ABG O2 Sat (Measured) ABG O2 Content ABG Base Excess Lee Test Carboxyhemoglobin Methemoglobin O2 Delivery Device Oxygen Flow Rate Vent Mode Vent Rate Mechanical Rate Pressure Support Vent Sodium Potassium Chloride Carbon Dioxide Anion Gap BUN Creatinine Creat Clearance w eGFR Random Glucose Lactic Acid Calcium Total Bilirubin AST ALT Alkaline Phosphatase Ammonia Troponin I C-Reactive Protein B-Natriuretic Peptide Total Protein Albumin Urine Color Urine Appearance Urine pH Ur Specific [place] Urine Protein Urine Glucose (UA) Urine Ketones Urine Blood Urine Nitrite Urine Bilirubin Urine Acetone Urine Urobilinogen Ur Leukocyte Esterase Urine WBC (Auto) Urine RBC (Auto) Hyaline Casts Urine Mucus U Random Total Protein 250 H Ur Random Sodium 30 L Ur Random Potassium 68.4 Ur Random Chloride < 11 L Urine Creatinine 215.0 H Protein/Creatinin Ratio 1.16 Salicylates < 1.7 L Opiates Screen Methadone Screen Acetaminophen < 2.0 L Barbiturate Screen Phencyclidine Screen Ur Amphetamines Screen MDMA (Ecstasy) Screen Benzodiazepines Screen Cocaine Screen U Marijuana (THC) Screen Alcohol, Quantitative < 3.0 Influenza A (Rapid) Influenza B (Rapid) Active Medications Generic Name Dose Route Start Last Admin Trade Name Freq PRN Reason Stop Dose Admin Albuterol Sulfate 1 amp 06/24/18 11:09 Ventolin 0.083% Nebulizer Soln - NEB Q4H PRN SHORT OF BREATH/WHEEZING Albuterol/Ipratropium 1 amp 06/24/18 12:00 06/24/18 12:02 Duoneb - NEB 1 amp RQID MISSAEL Administration Chlorhexidine Gluconate 1 applic 06/24/18 22:00 Hibiclens For Decolonization - TP HS MISSAEL Heparin Sodium (Porcine) 5,000 unit 06/24/18 14:00 Heparin - SQ TID MISSAEL Sodium Chloride 500 mls @ 500 mls/hr 06/24/18 11:39 06/24/18 12:02 Normal Saline - IV 06/24/18 12:38 500 mls/hr ASDIR STA Administration Sodium Chloride 1,000 mls @ 125 mls/hr 06/24/18 11:45 06/24/18 12:02 Normal Saline - IV 125 mls/hr ASDIR IMSSAEL Administration Insulin Aspart 1 vial 06/24/18 16:30 Novolog Vial Sliding Scale - SQ ACHS MISSAEL Protocol Methylprednisolone Sodium Succinate 60 mg 06/25/18 03:00 Solu-Medrol - IVPUSH Q6H-IV MISSAEL Mupirocin 1 applic 06/24/18 22:00 Bactroban Ointment (For Decolonization) - NS 06/29/18 21:59 BID MISSAEL ABG Results ABG pH 7.20 (7.35-7.45) L* 06/24/18 08:00 ABG pCO2 at Pt Temp 50.6 mmHg (35-45) H 06/24/18 08:00 ABG pO2 at Pt Temp 108.0 mmHg (80-100) H D 06/24/18 08:00 ABG HCO3 20.0 meq/L (22-26) L 06/24/18 08:00 ABG O2 Sat (Measured) 97.1 % (90-98.9) 06/24/18 08:00 ABG O2 Content 16.1 % vol (15-22) 06/24/18 08:00 ABG Base Excess No Result Required. 06/24/18 08:00 MRI lower extremity 06/08/18 Impression: 1. Status post amputation of the forefoot at the level of the proximal cuneiforms. 2. Soft tissue edema of the foot and marked soft tissue edema and open wound over the region of the amputation. 3. Bone marrow edema of the residual cuneiforms and cuboid especially involving the plantar aspect which nonspecific however in the setting of an adjacent soft tissue infectious process and open wound is consistent with osteomyelitis. 4. Milder bone marrow edema of the navicular bone which is most likely consistent with osteomyelitis. ASSESSMENT/PLAN: Sepsis: likely from respiratory source monitor vitals monitor intake/ output. maintain UO of 1 to 0.5 ml/kg/hr follow culture- blood and urine IV fluid with repeated auscultation. Avoid volume overload. influenza negative legionella and strep negative. cardiac monitoring. repeat ECHO. last echo done in october now pt cxr looks congested and also have increase in bnp. ID consult Altered mental status-- likely because of metabolic encephalopathy. keep head end elevated aspiration precaution. frequent neuro check fall risk precaution CT head done in er hypercapnic Respiratory failure. h/o copd, pulmonary fibrosis o2 to keep spo2> 90. BIPAP for respiratory support repeat cxr in am repeat abg in few hours. continue nebulizer continue steroid. Hyperkalemia monitor sr K. will give him IV fluid repeat sr K in evening Metabolic with respiratory acidosis continue IV fluid. continue steroid continue bipap keep head end elevated take aspiration precaution sherman on ckd--- likley prerenal. urine shows hyline cast morales cath IV fluid hold home lasix for now monitor creatinine avoid nephrotoxic drugs renal and bladder scan nephro consult urine electrolytes h/o osteomilitis tunnel cath present on right side on cefepime BID for 5 week tunnel cath present on right side inserted on 06/13/18 MRI done on 06/08/18 reviewed get esr and crp id consult also goes to hyperbaric therapy H/o htn bp on lower side hold home bp meds h/o DM hold oral hypoglycemic started on insulin sliding scale goal to maintain sugar between 140 to 180 FEN - NS @75 - cmp in am - diabetic/low potassium Dispo: We will continue to follow the patient. Thank you for this consultative opportunity. Visit type - Emergency Visit Emergency Visit: Yes ED Registration Date: 06/24/18 Care time: The patient presented to the Emergency Department on the above date and was hospitalized for further evaluation of their emergent condition. - New Patient This patient is new to me today: Yes Date on this admission: 06/24/18 - Critical Care Critical Care patient: Yes Total Critical Care Time (in minutes): 45 Critical Care Statement: The care of this patient involved high complexity decision making to prevent further life threatening deterioration of the patient 's condition and/or to evaluate & treat vital organ system(s) failure or risk of failure.
[2018-06-24] MEDS ORDERED: INSULIN (NOVOLOG) ASPART 100 UNITS/ML 10ML VIAL SQ ONE (14:00)
[2018-06-24] MEDS ORDERED: ACETYLCYSTEINE 20% 200MG/ML 4 ML VIAL *FOR ORAL / INH USE ONLY NEB ONE (14:00)
[2018-06-24] MEDS ORDERED: ALBUTEROL SO4 0.083% IH SOL 2.5 MG/3 ML VIAL.NEB. NEB ONE (14:00)
--- NOTE | 2018-06-24 14:24 | PN ---
Progress Note (short form) - Note Progress Note: ID Consult dictated Sepsis JESÚS Chronic osteomyelitis Await c/s Empiric zosyn/ vancomycin
[2018-06-24] MEDS: HEPARIN NA (PORCINE) 5,000 UNITS/ML 1ML VIAL SQ SCH ×2 (15:27→21:51)
[2018-06-24] MEDS ORDERED: INSULIN REGULAR HUMAN 100 UNITS/ML *VIAL IVPUSH ONE ×2 (15:30→17:15)
[2018-06-24] MEDS ORDERED: LACTULOSE 20 GM/30 ML UDC (FOR ORAL USE ONLY) PO ONE ×3 (16:30→17:15)
[2018-06-24] MEDS ORDERED: INSULIN SLIDING SCALE (NOVOLOG) 1 VIAL SQ SCH (16:30)
[2018-06-24] MEDS: INSULIN SLIDING SCALE (NOVOLOG) 1 VIAL SQ SCH ×2 (17:13→21:52)
[2018-06-24] MEDS ORDERED: PIPERACILLIN/TAZOBACTAM 2.25 GM VIAL IVPB ONE (17:21)
[2018-06-24] MEDS ORDERED: DEXTROSE 5%-WATER - 50 ML IVPB ONE (17:21)
[2018-06-24 17:32] LABS: ARTERIAL BLD GAS O2 SATURATION 93.1 % (90-98.9); ARTERIAL BLOOD GAS PCO2 43.7 mmHg (35-45)
[2018-06-24 17:34] LABS: ALLENS TEST POSITIVE
[2018-06-24 17:37] LABS: ARTERIAL BLOOD GAS BASE EXCESS -11.3 meq/l (-2-2); ARTERIAL BLOOD GAS pH 7.19 (7.35-7.45)
[2018-06-24] MEDS: PIPERACILLIN/TAZOB 2.25 GM 2.25 GM in DEXTROSE 5%-WATER - 50 ML IVPB SCH (17:38)
--- NOTE | 2018-06-24 17:42 | CONS ---
DATE OF CONSULTATION: DATE OF DICTATION: 06/24/2018 INFECTIOUS DISEASE CONSULTATION HISTORY OF PRESENT ILLNESS: The patient is a 67-year-old male with multiple comorbidities and multiple recent hospitalizations, now evaluated for septic shock. His history was obtained from the chart as well as family members present at the time of the examination. He was admitted through the emergency room after he was found at his residence on the floor. His neighbors became concerned after they had not seen him for several days. He was found on the floor of his residence. He was brought by ambulance to the emergency room at [facility], where he was noted to be hypoxemic and confused. He had an elevated methemoglobin. Poison Control was contacted. Cultures were obtained. He was empirically treated with vancomycin and Zosyn for possible sepsis. He was transferred to the intensive care unit for possible septic shock. At the present time he is awake; however, he is confused. He was hypotensive, requiring a bolus of IV fluids. He offers no focal complaint. He denies any pain. He denies any recent febrile illness. He was recently hospitalized at [facility], where he was treated for osteomyelitis of his right transmetatarsal stump site. He was discharged with a tunneled catheter to complete an additional 5 weeks of IV cefepime. PAST MEDICAL HISTORY: Positive for diabetes mellitus, history of diabetic foot infection, osteomyelitis, hypertension, hyperlipidemia, COPD, coronary artery disease. PAST SURGICAL HISTORY: Status post right transmetatarsal amputation, right chest tunneled catheter, appendectomy, cholecystectomy. ALLERGIES: No known allergies. MEDICATIONS: See medication list. SOCIAL HISTORY: Resides at home. He is a nonsmoker, nondrinker. Multiple recent hospitalizations. REVIEW OF SYSTEMS: Neurologic: As per HPI. Cardiac: Negative for chest pain or palpitations. Respiratory: Negative for cough or sputum production. Gastrointestinal: Negative for vomiting or diarrhea. Genitourinary: Positive for [id number] renal failure. LABORATORY DATA: White blood cell count 11.6, hematocrit 37.8, platelet count 93. BUN 6, creatinine 5.7. Urinalysis with 9 white cells. Alkaline phosphatase 153. Influenza swab neg. IMAGING: Chest x-ray shows congestion bilaterally. PHYSICAL EXAMINATION: General: He is awake but confused. Vital Signs: Afebrile. Hypotensive. Tachycardic. Respiratory rate 20 per minute. HEENT: Sclerae anicteric. Chest: Catheter site in the right chest with no erythema or tenderness. Cardiac: Heart sounds S1, S2. No murmur. Lungs: Grossly clear. Abdomen: Soft. No tenderness elicited. No mass, rebound or rigidity. Extremities: Status post right transmetatarsal amputation. The site appears clear, without evidence of infection. No purulent drainage. IMPRESSION: 1. Sepsis/septic shock. 2. [id number] renal failure. 3. Chronic osteomyelitis of the right transmetatarsal amputation site. 4. Toxic metabolic encephalopathy. 5. Thrombocytopenia secondary to sepsis. PLAN: Await sepsis workup. Empiric antibiotic coverage with vancomycin and Zosyn. Hemodynamic support. Prognosis is guarded. Case discussed with family members present at the time of the examination. Critical care time spent reviewing chart, examining patient, 35 minutes. Thank you for this kind referral. GLADIS YOUSSEF M.D. [id number]
[2018-06-24 18:07] LABS: ANION GAP 11 MMOL/L (8-16); BLOOD UREA NITROGEN 66 mg/dL (7-18); CALCIUM 8.2 mg/dL (8.5-10.1); CHLORIDE 122 mmol/L (98-107); CO2 20 mmol/L (21-32); CREATININE 5.4 mg/dL (0.55-1.3); GLUCOSE,RANDOM 234 mg/dL (74-106); POTASSIUM 5.2 mmol/L (3.5-5.1); SODIUM 153 mmol/L (136-145)
[2018-06-24] MEDS ORDERED: SODIUM BICARBONATE 8.4% 50 MEQ/50 ML VIAL ONE (18:23)
[2018-06-24] MEDS ORDERED: DEXTROSE 5%-WATER - 1,000 ML with SODIUM BICARBONATE 8.4% - 75 MEQ IV SCH (18:30)
[2018-06-24] MEDS: SODIUM BICARBONATE 8.4% - 75 MEQ in DEXTROSE 5%-WATER - 1,000 ML IV SCH (18:39)
[2018-06-24 19:38] LABS: ANION GAP 15 MMOL/L (8-16); BLOOD UREA NITROGEN 64 mg/dL (7-18); CALCIUM 8.3 mg/dL (8.5-10.1); CHLORIDE 110 mmol/L (98-107); CO2 14 mmol/L (21-32); CREATININE 5.4 mg/dL (0.55-1.3); GLUCOSE,RANDOM 175 mg/dL (74-106); POTASSIUM 5.3 mmol/L (3.5-5.1); SODIUM 139 mmol/L (136-145)
[2018-06-24] MEDS ORDERED: PT OWN MED DRAWER 7, Y5N ONE (20:39)
[2018-06-24] MEDS: MUPIROCIN 2% TOPICAL OINTMENT FOR DECOLONIZATION NS SCH (21:50)
[2018-06-24] MEDS: CHLORHEXIDINE GLUCONATE 4% CLEANSER FOR DECOLONIZATION TP SCH (21:52)
[2018-06-24] MEDS: FAMOTIDINE 20 MG/50 ML IVPB 20 MG/50 ML MG IVPB SCH (21:53)
[2018-06-24 21:55] LABS: URINE APPEARANCE CLOUDY; URINE BILIRUBIN NEGATIVE (<2.0 mg/dL); URINE COLOR YELLOW; URINE GLUCOSE (UA) 3+ (NEGATIVE); URINE KETONE NEGATIVE (NEGATIVE); URINE LEUK ESTERASE TRACE (NEGATIVE); URINE NITRITE NEGATIVE (NEGATIVE); URINE PROTEIN 2+ (NEGATIVE); URINE UROBILINOGEN NEGATIVE mg/dL (0.2-1.0)
[2018-06-24 22:02] LABS: EPI CELLS RARE /HPF (FEW); URINE BACTERIA RARE /hpf (NONE SEEN); URINE HYALINE CAST 1 /lpf; URINE MUCUS RARE
[2018-06-24 23:45] LABS: ARTERIAL BLD GAS O2 SATURATION 97.5 % (90-98.9); ARTERIAL BLOOD GAS PCO2 46.6 mmHg (35-45)
[2018-06-24 23:46] LABS: ALLENS TEST POSITIVE
[2018-06-24 23:48] LABS: ARTERIAL BLOOD GAS pH 7.22 (7.35-7.45)
[2018-06-25] MEDS ORDERED: PIPERACILLIN/TAZOBACTAM 2.25 GM VIAL IVPB ONE ×3 (00:06→16:29)
[2018-06-25] MEDS ORDERED: DEXTROSE 5%-WATER - 50 ML IVPB ONE ×3 (00:06→16:30)
[2018-06-25 00:25] LABS: ANION GAP 10 MMOL/L (8-16); BLOOD UREA NITROGEN 68 mg/dL (7-18); CALCIUM 7.9 mg/dL (8.5-10.1); CHLORIDE 107 mmol/L (98-107); CO2 20 mmol/L (21-32); CREATININE 5.1 mg/dL (0.55-1.3); GLUCOSE,RANDOM 214 mg/dL (74-106); POTASSIUM 5.3 mmol/L (3.5-5.1); SODIUM 137 mmol/L (136-145)
[2018-06-25] MEDS: methylPREDNISolone NA SUCC 40 MG/1 ML VIAL IVPUSH SCH ×3 (02:34→18:04)
[2018-06-25] MEDS: PIPERACILLIN/TAZOB 2.25 GM 2.25 GM in DEXTROSE 5%-WATER - 50 ML IVPB SCH ×3 (02:35→18:04)
[2018-06-25] MEDS: INSULIN SLIDING SCALE (NOVOLOG) 1 VIAL SQ SCH ×5 (05:25→23:29)
[2018-06-25 06:17] LABS: INR 1.19 (0.83-1.09); PROTHROMBIN TIME (PATIENT) 14.1 SEC (9.7-13.0)
[2018-06-25] MEDS: HEPARIN NA (PORCINE) 5,000 UNITS/ML 1ML VIAL SQ SCH ×3 (06:23→22:00)
[2018-06-25] MEDS: SODIUM BICARBONATE 8.4% - 75 MEQ in DEXTROSE 5%-WATER - 1,000 ML IV SCH ×2 (06:24→16:37)
[2018-06-25 06:38] LABS: ALBUMIN 2.5 g/dl (3.4-5.0); ALK PHOS 123 U/L (45-117); ANION GAP 10 MMOL/L (8-16); BILIRUBIN,TOTAL 0.3 mg/dL (0.2-1); BLOOD UREA NITROGEN 70 mg/dL (7-18); CALCIUM 7.5 mg/dL (8.5-10.1); CHLORIDE 105 mmol/L (98-107); CO2 22 mmol/L (21-32); MAGNESIUM 1.7 mg/dL (1.8-2.4); PHOSPHOROUS 5.9 mg/dL (2.5-4.9); SGOT/AST 27 U/L (15-37); SGPT/ALT 18 U/L (13-61); SODIUM 137 mmol/L (136-145); TOT PROT 6.6 g/dl (6.4-8.2)
[2018-06-25] MEDS ORDERED: METOPROLOL TARTRATE 5 MG/5 ML VIAL ONE (06:46)
[2018-06-25 06:47] LABS: GLUCOSE,RANDOM 315 mg/dL (74-106)
[2018-06-25 06:48] LABS: POTASSIUM 6.4 mmol/L (3.5-5.1)
[2018-06-25] MEDS: ALBUTEROL SO4 2.5/IPRATROPIUM 0.5 INH SOL 3 ML VIAL.NEB. NEB SCH ×4 (08:00→20:07)
[2018-06-25] MEDS ORDERED: CALCIUM GLUCONATE 10% - 1,000 MG/10 ML VIAL IVPUSH ONE (08:30)
[2018-06-25] MEDS ORDERED: SODIUM POLYSTYRENE SULFONATE 15 GM/60 ML BOTTLE PO ONE (08:30)
[2018-06-25] MEDS ORDERED: MAGNESIUM OXIDE 400 MG TABLET (FP) PO ONE (09:00)
--- NOTE | 2018-06-25 09:11 | CONSULT ---
Consult - text type - Consultation Consultation Note: Renal Consult for JESÚS on CKD This is a 67 year old AA gentleman with hx of CKD stage 3 (baseline Cr 1.6), Hypertension, COPD, DM, PVD s/p recent admission and discharge who was brought to the ED after being found on the ground by a neighbor and found to have Hypoxic respiratory failure and JESÚS in setting of suspected sepsis. Pt was recently admitted for fevers with JESÚS that resolved during the hospital course. Pt cannot recall events that led to this admission. Reports having some tremors of his upper extremities. Denies any NSAID use. No recent contrast exposure. Denies any CP, Abd pain, N/V/D. PMHx: as above Allergies: NKDA Family Hx: NC Social Hx: No T/A/D ROS: as per HPI Home Medications Medication Instructions Recorded Tamsulosin HCl [Flomax -] 0.4 mg PO DAILY 05/11/16 traZODone HCL [Desyrel -] 50 mg PO HS 05/11/16 Metoprolol Succinate [Toprol XL -] 25 mg PO DAILY tab.sr.24h 07/19/16 Amlodipine Besylate [Norvasc -] 5 mg PO DAILY tablet 10/29/16 Pantoprazole Sodium [Protonix] 40 mg PO DAILY 01/25/17 Furosemide [Lasix] 20 mg PO DAILY #0 mg 03/08/17 Pregabalin [Lyrica -] 150 mg PO BID 05/11/17 Ferrous Sulfate [Feosol] 325 mg PO BID ud 11/11/17 Ergocalciferol (Vitamin D2) 1 tab PO WEEKLY 01/11/18 [Drisdol] Pramipexole Di-HCl [Mirapex] 0.5 mg PO DAILY 01/11/18 Albuterol 2.5/Ipratropium 0.5 1 amp NEB RQID amp 03/02/18 [Duoneb -] Polyethylene Glycol 3350 [Miralax 17 gm PO DAILY bottle 03/02/18 119 gm Btl -] Sennosides [Senna -] 2 tab PO HS tablet 03/02/18 Zinc Sulfate [Orazinc -] 220 mg PO BID capsule 03/02/18 Aclidinium [place] [Tudorza 400 mcg IH DAILY 04/10/18 Pressair] Acetaminophen 650 mg PO Q6H PRN 04/11/18 Ascorbic Acid [Vitamin C -] 500 mg PO BID 04/11/18 Atorvastatin Ca [Lipitor] 20 mg PO HS 04/11/18 Clopidogrel Bisulfate [Plavix -] 75 mg PO DAILY 04/11/18 Docusate Sodium [Colace -] 300 mg PO HS 04/11/18 Memantine HCl 5 mg PO BID 04/11/18 oxyCODONE HCL [Roxicodone -] 10 mg PO Q6H PRN MDD 4 04/11/18 Insulin (Levemir) [Levemir Vial] 32 units SQ AM 06/06/18 Budesonide/Formeterol Fumarate 2 puff IH BID #1 inhaler MDD 2 06/13/18 [SYMBICORT 160/4.5mcg -] Fluticasone Prop 0.05% Nasal 1 spray NS BID #1 spray 06/13/18 [Flonase -] Vital Signs Temperature 97.8 F 06/25/18 02:00 Pulse Rate 90 06/25/18 07:00 Respiratory Rate 14 06/25/18 07:00 Blood Pressure 117/58 L 06/25/18 07:00 O2 Sat by Pulse Oximetry (%) 94 L 06/24/18 20:30 Intake & Output 06/22/18 06/23/18 06/24/18 06/25/18 23:59 23:59 23:59 23:59 Intake Total 695 800 Output Total 650 450 Balance 45 350 Weight 83.8 kg 84.504 kg NAD on neb tx awake and alert RRR, No M/R Come fine rales in lung bases soft, mild distension no LE edema, right foot in dressing no bladder distension CBC, BMP 06/24/18 08:30 06/25/18 05:30 Laboratory Tests 06/24/18 06/24/18 06/25/18 08:30 18:00 05:30 Creatinine 5.7 H 5.4 H 5.0 H Calcium 7.5 L Phosphorus 5.9 H Magnesium 1.7 L Albumin 2.5 L Current Medications Albuterol Sulfate (Ventolin 0.083% Nebulizer Soln -) 1 amp NEB Q4H PRN PRN Reason: SHORT OF BREATH/WHEEZING Last Admin: 06/24/18 16:00 Dose: 1 amp Albuterol/Ipratropium (Duoneb -) 1 amp NEB RQID [facility] Last Admin: 06/24/18 20:50 Dose: 1 amp Chlorhexidine Gluconate (Hibiclens For Decolonization -) 1 applic TP HS [facility] Last Admin: 06/24/18 21:52 Dose: 1 applic Heparin Sodium (Porcine) (Heparin -) 5,000 unit SQ TID [facility] Last Admin: 06/25/18 06:23 Dose: 5,000 unit Famotidine/Sodium Chloride (Pepcid 20 Mg Premixed Ivpb -) 20 mg in 50 mls @ 100 mls/hr IVPB BID [facility] Last Admin: 06/24/18 21:53 Dose: 100 mls/hr Piperacillin Sod/Tazobactam (Sod 2.25 gm/ Dextrose) 50 mls @ 100 mls/hr IVPB Q8H-IV [facility]; Protocol Last Admin: 06/25/18 02:35 Dose: 100 mls/hr Sodium Bicarbonate 75 meq/ (Dextrose) 1,075 mls @ 100 mls/hr IV Q10H [facility] Last Admin: 06/25/18 06:24 Dose: 100 mls/hr Insulin Aspart (Novolog Vial Sliding Scale -) 1 vial SQ ACHS [facility]; Protocol Last Admin: 06/25/18 06:27 Dose: 10 units Methylprednisolone Sodium Succinate (Solu-Medrol -) 60 mg IVPUSH Q6H-IV [facility] Last Admin: 06/25/18 02:34 Dose: 60 mg Mupirocin (Bactroban Ointment (For Decolonization) -) 1 applic NS BID [facility] Stop: 06/29/18 21:59 Last Admin: 06/24/18 21:50 Dose: 1 applic 67 year old AA gentleman with hx of CKD stage 3 (baseline Cr 1.6), Hypertension , COPD, DM, PVD s/p recent admission and discharge who was brought to the ED after being found on the ground by a neightbor and found to have Hypoxic respiratory failure and JESÚS in setting of suspected sepsis. #Acute Renal Injury on CKD secondary to renal hypoprofusion (FeNa 0.54% indicating preserved tubular function, US w/o obstruction) #Hyperkalemia #Metabolic acidosis #Hypoxic respiratory failure Renal function with mild improvement but potassium trending up would continue moderate rate of IVF hydration with monitoring of urine output Repeat BMP this am as pt with slightly hemolyized sample s/p kayexalate this am, EKG w/o overt changes keep MAP> 65, if BP starts to run high can use antihypetensives but would not use LUIS/ARB given EJSÚS and hyperkalemia Trend BMP Q6h if K remains >6 Trend serum bicarb and Ca (will need to hold if corrected Ca < 7.5) Continue supplamental O2, BIPAP as needed Continue Abx, f/u cultures maintain morales for now Thank you Will follow Deven Layton DO
--- NOTE | 2018-06-25 09:48 | HP ---
Admitting History and Physical - Past Medical History LOW RAW SUGAR CUTTER: Yes: CVA Cardiovascular: Yes: HTN, Hyperlipdemia, Other (PAD) Pulmonary: Yes: Asthma, COPD, O2 Dependent, Sleep Apnea Hepatobiliary: Yes: Cholecystitis Renal/: Yes: Renal Inusuff Infectious Disease: Yes: MRSA Musculoskeletal: Yes: Other (chronic foot ulcers) Endocrine: Yes: Diabetes Mellitus - Past Surgical History Past Surgical History: Yes: Amputation (second toe left foot), Appendectomy, Carotid Endarterectomy (right), Cholecystectomy, Hernia Repair, Stent, Tonsillectomy - Smoking History Smoking history: Never smoked Have you smoked in the past 12 months: No Aproximately how many cigarettes per day: 3 If you are a former smoker, when did you quit?: 2017 - Alcohol/Substance Use Hx Alcohol Use: No Number of Drinks Daily: 2 (beer, cr on weekend) History of Substance Use: reports: None - Social History ADL: Independent (uses a walker and wheelchair, in process of getting a scooter) 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 ,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 History of Recent Travel: No Home Medications - Allergies Allergies/Adverse Reactions: Allergies Allergy/AdvReac Type Severity Reaction Status Date / Time No Known Drug Allergies Allergy Verified 06/19/18 08:10 - Home Medications Home Medications: Ambulatory Orders Tamsulosin HCl [Flomax -] 0.4 mg PO DAILY 05/11/16 traZODone HCL [Desyrel -] 50 mg PO HS 05/11/16 Metoprolol Succinate [Toprol XL -] 25 mg PO DAILY tab.sr.24h 07/19/16 Amlodipine Besylate [Norvasc -] 5 mg PO DAILY tablet 10/29/16 Pantoprazole Sodium [Protonix] 40 mg PO DAILY 01/25/17 Furosemide [Lasix] 20 mg PO DAILY #0 mg 03/08/17 Pregabalin [Lyrica -] 150 mg PO BID 05/11/17 Ferrous Sulfate [Feosol] 325 mg PO BID ud 11/11/17 Ergocalciferol (Vitamin D2) [Drisdol] 1 tab PO WEEKLY 01/11/18 Pramipexole Di-HCl [Mirapex] 0.5 mg PO DAILY 01/11/18 Albuterol 2.5/Ipratropium 0.5 [Duoneb -] 1 amp NEB RQID amp 03/02/18 Polyethylene Glycol 3350 [Miralax 119 gm Btl -] 17 gm PO DAILY bottle 03/02/18 Sennosides [Senna -] 2 tab PO HS tablet 03/02/18 Zinc Sulfate [Orazinc -] 220 mg PO BID capsule 03/02/18 Aclidinium [place] [Tudorza Pressair] 400 mcg IH DAILY 04/10/18 Acetaminophen 650 mg PO Q6H PRN 04/11/18 Ascorbic Acid [Vitamin C -] 500 mg PO BID 04/11/18 Atorvastatin Ca [Lipitor] 20 mg PO HS 04/11/18 Clopidogrel Bisulfate [Plavix -] 75 mg PO DAILY 04/11/18 Docusate Sodium [Colace -] 300 mg PO HS 04/11/18 Memantine HCl 5 mg PO BID 04/11/18 oxyCODONE HCL [Roxicodone -] 10 mg PO Q6H PRN MDD 4 04/11/18 Insulin (Levemir) [Levemir Vial] 32 units SQ AM 06/06/18 Budesonide/Formeterol Fumarate [SYMBICORT 160/4.5mcg -] 2 puff IH BID #1 inhaler MDD 2 06/13/18 Fluticasone Prop 0.05% Nasal [Flonase -] 1 spray NS BID #1 spray 06/13/18 Family Disease History - Family Disease History Family Disease History: Diabetes: Mother (htn), CA: Father (htn, prostate CA), Other: Father, Mother Physical Examination Vital Signs: Vital Signs Temperature 97.8 F 06/25/18 02:00 Pulse Rate 90 06/25/18 07:00 Respiratory Rate 14 06/25/18 07:00 Blood Pressure 117/58 L 06/25/18 07:00 O2 Sat by Pulse Oximetry (%) 94 L 06/24/18 20:30 Labs: CBC, BMP 06/24/18 08:30 06/25/18 05:30 Problem List - Problems (1) Sepsis Assessment/Plan: monitor vitals follow culture- blood and urine IV fluid influenza negative legionella and strep negative. cardiac monitoring. ID consult Code(s): A41.9 - SEPSIS, UNSPECIFIED ORGANISM Qualifiers: (2) Diabetic foot ulcer Code(s): E11.621 - TYPE 2 DIABETES MELLITUS WITH FOOT ULCER; L97.509 - NON- PRESSURE CHRONIC ULCER OTH PRT UNSP FOOT W UNSP SEVERITY (3) Acute kidney injury superimposed on CKD Assessment/Plan: monitor trending up renal consult noted continue IV fluid. received kayaxolate morales cath monitor creatinine avoid nephrotoxic drugs Code(s): N17.9 - ACUTE KIDNEY FAILURE, UNSPECIFIED; N18.9 - CHRONIC KIDNEY DISEASE, UNSPECIFIED (4) Chronic osteomyelitis Assessment/Plan: tunnel cath present on right side on cefepime BID for 5 week tunnel cath present on right side inserted on 06/13/18 MRI done on 06/08/18 reviewed get esr and crp id consult also goes to hyperbaric therapy Code(s): M86.60 - OTHER CHRONIC OSTEOMYELITIS, UNSPECIFIED SITE (5) Respiratory failure with hypoxia and hypercapnia Assessment/Plan: Altered mental status-- likely because of metabolic encephalopathy. keep head end elevated aspiration precaution. frequent neuro check fall risk precaution CT head done in er o2 to keep spo2> 90. BIPAP for respiratory support repeat cxr in am continue nebulizer continue steroid. Code(s): J96.91 - RESPIRATORY FAILURE, UNSPECIFIED WITH HYPOXIA; J96.92 - RESPIRATORY FAILURE, UNSPECIFIED WITH HYPERCAPNIA
[2018-06-25] MEDS: FAMOTIDINE 20 MG/50 ML IVPB 20 MG/50 ML MG IVPB SCH ×2 (10:23→22:00)
[2018-06-25 10:44] LABS: ARTERIAL BLOOD GAS BASE EXCESS -8.1 meq/l (-2-2); ARTERIAL BLOOD GAS PCO2 48.9 mmHg (35-45); ARTERIAL BLOOD GAS PO2 91.1 mmHg (80-100); ARTERIAL BLOOD GAS pH 7.22 (7.35-7.45)
[2018-06-25] MEDS: MUPIROCIN 2% TOPICAL OINTMENT FOR DECOLONIZATION NS SCH ×2 (11:05→23:25)
[2018-06-25 11:07] LABS: ALLENS TEST POSITIVE
--- NOTE | 2018-06-25 11:30 | PN ---
Teaching Attending Note Name of Resident: Tito James ATTENDING PHYSICIAN STATEMENT I saw and evaluated the patient. I reviewed the resident's note and discussed the case with the resident. I agree with the resident's findings and plan as documented. SUBJECTIVE: Pt seen and examined in the ICU. Mental status back to baseline. BP improving. Hyperkalemic this AM. OBJECTIVE: Vital Signs Period Temp Pulse Resp BP Sys/Cintron Pulse Ox Last 24 Hr 97.5 F-97.8 F 73-90 14-20 95-143/47-119 92-97 Intake & Output 06/22/18 06/23/18 06/24/18 06/25/18 23:59 23:59 23:59 23:59 Intake Total 695 800 Output Total 650 450 Balance 45 350 Weight 83.8 kg 84.504 kg Gen: NAD at rest Heart: RRR Lung: decreased breath sounds at the bases Abd: soft, nontender Ext: chronic changes CBC, BMP 06/24/18 08:30 06/25/18 05:30 Active Medications Albuterol Sulfate (Ventolin 0.083% Nebulizer Soln -) 1 amp NEB Q4H PRN PRN Reason: SHORT OF BREATH/WHEEZING Last Admin: 06/24/18 16:00 Dose: 1 amp Albuterol/Ipratropium (Duoneb -) 1 amp NEB RQID [facility] Last Admin: 06/24/18 20:50 Dose: 1 amp Chlorhexidine Gluconate (Hibiclens For Decolonization -) 1 applic TP HS [facility] Last Admin: 06/24/18 21:52 Dose: 1 applic Heparin Sodium (Porcine) (Heparin -) 5,000 unit SQ TID [facility] Last Admin: 06/25/18 06:23 Dose: 5,000 unit Famotidine/Sodium Chloride (Pepcid 20 Mg Premixed Ivpb -) 20 mg in 50 mls @ 100 mls/hr IVPB BID [facility] Last Admin: 06/25/18 10:23 Dose: 100 mls/hr Piperacillin Sod/Tazobactam (Sod 2.25 gm/ Dextrose) 50 mls @ 100 mls/hr IVPB Q8H-IV [facility]; Protocol Last Admin: 06/25/18 10:23 Dose: 100 mls/hr Sodium Bicarbonate 75 meq/ (Dextrose) 1,075 mls @ 100 mls/hr IV Q10H [facility] Last Admin: 06/25/18 06:24 Dose: 100 mls/hr Insulin Aspart (Novolog Vial Sliding Scale -) 1 vial SQ ACHS [facility]; Protocol Last Admin: 06/25/18 06:27 Dose: 10 units Methylprednisolone Sodium Succinate (Solu-Medrol -) 60 mg IVPUSH Q6H-IV [facility] Last Admin: 06/25/18 10:24 Dose: 60 mg Mupirocin (Bactroban Ointment (For Decolonization) -) 1 applic NS BID [facility] Stop: 06/29/18 21:59 Last Admin: 06/24/18 21:50 Dose: 1 applic ASSESSMENT AND PLAN: Acute Hypoxic Respiratory Failure r/o Pneumonia Severe Sepsis Acute on Chronic Renal Failure Metabolic Acidosis Hyperkalemia COPD DM PAD Chronic Osteomyelitis - continue antibiotics - f/u cultures - IVF, bicarb gtt - monitor urine output, creatinine - monitor lytes - O2 to keep SpO2 >90% - inhaled bronchodilators - can taper off medrol - can transfer to floor if improving hyperkalemia
--- NOTE | 2018-06-25 12:14 | PN ---
Physical Exam: SUBJECTIVE: Patient seen and examined in the ICU. Mental status back to baseline. Hyperkalemic this AM. OBJECTIVE: Vital Signs Period Temp Pulse Resp BP Sys/Cintron Pulse Ox Last 24 Hr 97.5 F-97.8 F 73-90 14-20 95-143/47-119 92-97 GENERAL: AOX3 NAD HEENT: NCAT MMM NECK: Normal range of motion,no JVD, LUNGS: mild crackles at bases. on NC, speaking in full sentence. catheter on right side HEART: RRR, normal S1 and S2, rub or gallop. ABDOMEN: Soft, NTND, obese, normoactive bowel sounds, no guarding, no rebound, no masses. UPPER EXTREMITIES: 2+ pulses, warm, well-perfused. No cyanosis. LOWER EXTREMITIES: b/l skin discoloration. right midtarsal amputation, granulation tissue present, no discharge. L side no open wounds. PSYCHIATRIC: Cooperative. Good eye contact. SKIN: Warm, dry, Laboratory Results - last 24 hr 06/24/18 06/24/18 06/24/18 08:30 11:19 11:19 ESR PT with INR INR Anticoagulation Therapy Puncture Site ABG pH ABG pCO2 at Pt Temp ABG pO2 at Pt Temp ABG HCO3 ABG O2 Sat (Measured) ABG O2 Content ABG Base Excess Lee Test O2 Delivery Device Oxygen Flow Rate Vent Mode Vent Rate Mechanical Rate Pressure Support Vent Sodium Potassium Chloride Carbon Dioxide Anion Gap BUN Creatinine Creat Clearance w eGFR POC Glucometer Random Glucose Lactic Acid Calcium Phosphorus Magnesium Total Bilirubin AST ALT Alkaline Phosphatase Creatine Kinase Creatine Kinase Index CK-MB (CK-2) Troponin I C-Reactive Protein 4.5 H Total Protein Albumin Urine Color Urine Appearance Urine pH Ur Specific Zuni Urine Protein Urine Glucose (UA) Urine Ketones Urine Blood Urine Nitrite Urine Bilirubin Urine Urobilinogen Ur Leukocyte Esterase Urine WBC (Auto) Urine RBC (Auto) Ur Epithelial Cells Urine Bacteria Hyaline Casts Urine Mucus U Random Total Protein 250 H Ur Random Sodium 30 L Ur Random Potassium 68.4 Ur Random Chloride < 11 L Urine Creatinine 215.0 H Protein/Creatinin Ratio 1.16 Random Vancomycin 06/24/18 06/24/18 06/24/18 11:19 13:51 15:29 ESR 32 H PT with INR INR Anticoagulation Therapy Puncture Site ABG pH ABG pCO2 at Pt Temp ABG pO2 at Pt Temp ABG HCO3 ABG O2 Sat (Measured) ABG O2 Content ABG Base Excess Lee Test O2 Delivery Device Oxygen Flow Rate Vent Mode Vent Rate Mechanical Rate Pressure Support Vent Sodium Potassium Chloride Carbon Dioxide Anion Gap BUN Creatinine Creat Clearance w eGFR POC Glucometer > 400 > 400 Random Glucose Lactic Acid Calcium Phosphorus Magnesium Total Bilirubin AST ALT Alkaline Phosphatase Creatine Kinase Creatine Kinase Index CK-MB (CK-2) Troponin I C-Reactive Protein Total Protein Albumin Urine Color Urine Appearance Urine pH Ur Specific Zuni Urine Protein Urine Glucose (UA) Urine Ketones Urine Blood Urine Nitrite Urine Bilirubin Urine Urobilinogen Ur Leukocyte Esterase Urine WBC (Auto) Urine RBC (Auto) Ur Epithelial Cells Urine Bacteria Hyaline Casts Urine Mucus U Random Total Protein Ur Random Sodium Ur Random Potassium Ur Random Chloride Urine Creatinine Protein/Creatinin Ratio Random Vancomycin 06/24/18 06/24/18 06/24/18 16:16 17:00 17:09 ESR PT with INR INR Anticoagulation Therapy Puncture Site ABG pH ABG pCO2 at Pt Temp ABG pO2 at Pt Temp ABG HCO3 ABG O2 Sat (Measured) ABG O2 Content ABG Base Excess Lee Test O2 Delivery Device Oxygen Flow Rate Vent Mode Vent Rate Mechanical Rate Pressure Support Vent Sodium 153 H Potassium 5.2 H Chloride 122 H Carbon Dioxide 20 L Anion Gap 11 BUN 66 H Creatinine 5.4 H Creat Clearance w eGFR 10.65 POC Glucometer [phone] Random Glucose 234 H Lactic Acid Calcium 8.2 L Phosphorus Magnesium Total Bilirubin AST ALT Alkaline Phosphatase Creatine Kinase Creatine Kinase Index CK-MB (CK-2) Troponin I C-Reactive Protein Total Protein Albumin Urine Color Urine Appearance Urine pH Ur Specific Zuni Urine Protein Urine Glucose (UA) Urine Ketones Urine Blood Urine Nitrite Urine Bilirubin Urine Urobilinogen Ur Leukocyte Esterase Urine WBC (Auto) Urine RBC (Auto) Ur Epithelial Cells Urine Bacteria Hyaline Casts Urine Mucus U Random Total Protein Ur Random Sodium Ur Random Potassium Ur Random Chloride Urine Creatinine Protein/Creatinin Ratio Random Vancomycin 06/24/18 06/24/18 06/24/18 17:15 18:00 18:00 ESR PT with INR INR Anticoagulation Therapy No Result Required. Puncture Site Right radial ABG pH 7.19 L* ABG pCO2 at Pt Temp 43.7 ABG pO2 at Pt Temp 76.0 L D ABG HCO3 16.2 L ABG O2 Sat (Measured) 93.1 ABG O2 Content 16.2 ABG Base Excess -11.3 L* Lee Test Positive O2 Delivery Device Bipap Oxygen Flow Rate 40% Vent Mode No Result Required. Vent Rate No Result Required. Mechanical Rate No Result Required. Pressure Support Vent No Result Required. Sodium 139 Potassium 5.3 H Chloride 110 H Carbon Dioxide 14 L Anion Gap 15 BUN 64 H Creatinine 5.4 H Creat Clearance w eGFR 10.65 POC Glucometer Random Glucose 175 H Lactic Acid 2.8 H* Calcium 8.3 L Phosphorus Magnesium Total Bilirubin AST ALT Alkaline Phosphatase Creatine Kinase Creatine Kinase Index CK-MB (CK-2) Troponin I C-Reactive Protein Total Protein Albumin Urine Color Urine Appearance Urine pH Ur Specific Zuni Urine Protein Urine Glucose (UA) Urine Ketones Urine Blood Urine Nitrite Urine Bilirubin Urine Urobilinogen Ur Leukocyte Esterase Urine WBC (Auto) Urine RBC (Auto) Ur Epithelial Cells Urine Bacteria Hyaline Casts Urine Mucus U Random Total Protein Ur Random Sodium Ur Random Potassium Ur Random Chloride Urine Creatinine Protein/Creatinin Ratio Random Vancomycin 06/24/18 06/24/18 06/24/18 19:00 21:46 23:30 ESR PT with INR INR Anticoagulation Therapy Puncture Site ABG pH ABG pCO2 at Pt Temp ABG pO2 at Pt Temp ABG HCO3 ABG O2 Sat (Measured) ABG O2 Content ABG Base Excess Lee Test O2 Delivery Device Oxygen Flow Rate Vent Mode Vent Rate Mechanical Rate Pressure Support Vent Sodium 137 Potassium 5.3 H Chloride 107 Carbon Dioxide 20 L Anion Gap 10 BUN 68 H Creatinine 5.1 H Creat Clearance w eGFR 11.37 POC Glucometer [phone] Random Glucose 214 H Lactic Acid Calcium 7.9 L Phosphorus Magnesium Total Bilirubin AST ALT Alkaline Phosphatase Creatine Kinase Creatine Kinase Index CK-MB (CK-2) Troponin I C-Reactive Protein Total Protein Albumin Urine Color Yellow Urine Appearance Cloudy Urine pH 5.0 Ur Specific Zuni 1.015 Urine Protein 2+ H Urine Glucose (UA) 3+ H Urine Ketones Negative Urine Blood 2+ H Urine Nitrite Negative Urine Bilirubin Negative Urine Urobilinogen Negative Ur Leukocyte Esterase Trace Urine WBC (Auto) 28 Urine RBC (Auto) 37 Ur Epithelial Cells Rare Urine Bacteria Rare Hyaline Casts 1 Urine Mucus Rare U Random Total Protein Ur Random Sodium Ur Random Potassium Ur Random Chloride Urine Creatinine Protein/Creatinin Ratio Random Vancomycin 11/24/18 11/24/18 11/25/18 23:30 23:35 05:29 ESR PT with INR INR Anticoagulation Therapy No Result Required. Puncture Site Right brachial ABG pH 7.22 L* ABG pCO2 at Pt Temp 46.6 H ABG pO2 at Pt Temp 104.0 H D ABG HCO3 18.2 L ABG O2 Sat (Measured) 97.5 ABG O2 Content 15.6 ABG Base Excess -9.0 L Lee Test Positive O2 Delivery Device Venti mask Oxygen Flow Rate 50% Vent Mode No Result Required. Vent Rate No Result Required. Mechanical Rate No Result Required. Pressure Support Vent No Result Required. Sodium Potassium Chloride Carbon Dioxide Anion Gap BUN Creatinine Creat Clearance w eGFR POC Glucometer [phone] Random Glucose Lactic Acid 1.0 Calcium Phosphorus Magnesium Total Bilirubin AST ALT Alkaline Phosphatase Creatine Kinase Creatine Kinase Index CK-MB (CK-2) Troponin I C-Reactive Protein Total Protein Albumin Urine Color Urine Appearance Urine pH Ur Specific Zuni Urine Protein Urine Glucose (UA) Urine Ketones Urine Blood Urine Nitrite Urine Bilirubin Urine Urobilinogen Ur Leukocyte Esterase Urine WBC (Auto) Urine RBC (Auto) Ur Epithelial Cells Urine Bacteria Hyaline Casts Urine Mucus U Random Total Protein Ur Random Sodium Ur Random Potassium Ur Random Chloride Urine Creatinine Protein/Creatinin Ratio Random Vancomycin 06/25/18 06/25/18 06/25/18 05:30 05:30 10:30 ESR PT with INR 14.10 H INR 1.19 H Anticoagulation Therapy Puncture Site Right radial ABG pH 7.22 L* ABG pCO2 at Pt Temp 48.9 H ABG pO2 at Pt Temp 91.1 ABG HCO3 19.1 L ABG O2 Sat (Measured) 96.0 ABG O2 Content 15.5 ABG Base Excess -8.1 L Lee Test Positive O2 Delivery Device Nasal Oxygen Flow Rate 6l Vent Mode Vent Rate Mechanical Rate Pressure Support Vent Sodium 137 Potassium 6.4 H* Chloride 105 Carbon Dioxide 22 Anion Gap 10 BUN 70 H Creatinine 5.0 H Creat Clearance w eGFR 11.63 POC Glucometer Random Glucose 315 H* Lactic Acid Calcium 7.5 L Phosphorus 5.9 H Magnesium 1.7 L Total Bilirubin 0.3 AST 27 ALT 18 Alkaline Phosphatase 123 H Creatine Kinase 416 H Creatine Kinase Index 2.6 CK-MB (CK-2) 11.2 H Troponin I 0.03 C-Reactive Protein Total Protein 6.6 Albumin 2.5 L Urine Color Urine Appearance Urine pH Ur Specific Zuni Urine Protein Urine Glucose (UA) Urine Ketones Urine Blood Urine Nitrite Urine Bilirubin Urine Urobilinogen Ur Leukocyte Esterase Urine WBC (Auto) Urine RBC (Auto) Ur Epithelial Cells Urine Bacteria Hyaline Casts Urine Mucus U Random Total Protein Ur Random Sodium Ur Random Potassium Ur Random Chloride Urine Creatinine Protein/Creatinin Ratio Random Vancomycin 06/25/18 23:54 ESR PT with INR INR Anticoagulation Therapy Puncture Site ABG pH ABG pCO2 at Pt Temp ABG pO2 at Pt Temp ABG HCO3 ABG O2 Sat (Measured) ABG O2 Content ABG Base Excess Lee Test O2 Delivery Device Oxygen Flow Rate Vent Mode Vent Rate Mechanical Rate Pressure Support Vent Sodium Potassium Chloride Carbon Dioxide Anion Gap BUN Creatinine Creat Clearance w eGFR POC Glucometer Random Glucose Lactic Acid Calcium Phosphorus Magnesium Total Bilirubin AST ALT Alkaline Phosphatase Creatine Kinase Creatine Kinase Index CK-MB (CK-2) Troponin I C-Reactive Protein Total Protein Albumin Urine Color Urine Appearance Urine pH Ur Specific [place] Urine Protein Urine Glucose (UA) Urine Ketones Urine Blood Urine Nitrite Urine Bilirubin Urine Urobilinogen Ur Leukocyte Esterase Urine WBC (Auto) Urine RBC (Auto) Ur Epithelial Cells Urine Bacteria Hyaline Casts Urine Mucus U Random Total Protein Ur Random Sodium Ur Random Potassium Ur Random Chloride Urine Creatinine Protein/Creatinin Ratio Random Vancomycin 18.6 Active Medications Generic Name Dose Route Start Last Admin Trade Name Freq PRN Reason Stop Dose Admin Albuterol Sulfate 1 amp 06/24/18 11:09 06/24/18 16:00 Ventolin 0.083% Nebulizer Soln - NEB 1 amp Q4H PRN Administration SHORT OF BREATH/WHEEZING Albuterol/Ipratropium 1 amp 06/24/18 12:00 06/24/18 20:50 Duoneb - NEB 1 amp RQID MISSAEL Administration Chlorhexidine Gluconate 1 applic 06/24/18 22:00 06/24/18 21:52 Hibiclens For Decolonization - TP 1 applic HS MISSAEL Administration Heparin Sodium (Porcine) 5,000 unit 06/24/18 14:00 06/25/18 06:23 Heparin - SQ 5,000 unit TID MISSAEL Administration Famotidine/Sodium Chloride 20 mg in 50 mls @ 100 mls/hr 06/24/18 22:00 10:23 Pepcid 20 Mg Premixed Ivpb - IVPB 100 mls/hr BID MISSAEL Administration Piperacillin Sod/Tazobactam 50 mls @ 100 mls/hr 06/24/18 18:00 06/25/18 10:23 Sod 2.25 gm/ Dextrose IVPB 100 mls/hr Q8H-IV MISSAEL Administration Protocol Sodium Bicarbonate 75 meq/ 1,075 mls @ 100 mls/hr 06/24/18 18:30 06/25/18 06: 24 Dextrose IV 100 mls/hr Q10H MISSAEL Administration Insulin Aspart 1 vial 06/24/18 14:14 06/25/18 06:27 Novolog Vial Sliding Scale - SQ 10 units ACHS MISSAEL Administration Protocol Methylprednisolone Sodium Succinate 60 mg 06/25/18 03:00 06/25/18 10:24 Solu-Medrol - IVPUSH 60 mg Q6H-IV MISSAEL Administration Mupirocin 1 applic 06/24/18 22:00 06/24/18 21:50 Bactroban Ointment (For Decolonization) - NS 06/29/18 21:59 1 applic BID MISSAEL Administration ASSESSMENT/PLAN: 67 year old male with a significant past medical history of HTN, HLD, COPD, on 3 L of Oxygen at home, DM, PVD, ckd with foot wounds s/p R transmet amputation, osteomyelitis, who presents w/ AMS and acute resp failure 2/2 sepsis 2/2 possible PNA. NEURO Altered mental status- resolved, AOx3 keep head end elevated aspiration precaution. frequent neuro check fall risk precaution CT head neg CARDIAC/ID Sepsis: likely from PNA monitor intake/ output. maintain UO of 1 to 0.5 ml/kg/hr maintain MAP >65 IV fluid prn bcx, ucx neg influenza ,legionella and strep negative. cardiac monitoring. repeat ECHO. last echo done in october now pt cxr looks congested and also have increase in bnp. ID consult c/w vanc/zosyn H/o htn hold home bp meds to maintain adequate MAP if BP starts to run high can use antihypetensives but would not use LUIS/ARB given JESÚS and hyperkalemia h/o osteomilitis tunnel cath present on right side on cefepime BID for 5 week, hold for now, c/w vanc zosyn tunnel cath present on right side inserted on 06/13/18 MRI done on 06/08/18 reviewed esr 32 also goes to hyperbaric therapy PULM hypercapnic Respiratory failure - resolved. h/o copd, pulmonary fibrosis o2 to keep spo2> 90. BIPAP prn respiratory support maintaining O2 sat on NC repeat abg w/ improved CO2 , allow for permissive hypercap in consideration of COPD continue nebulizer taper steroid. RENAL jesús on ckd 2/2 renal hypoprofusion (FeNa 0.54% indicating preserved tubular function, US w/o obstruction) - mild improvement but potassium trending up morales cath IV fluid prn bicarb gtt for acidosis hold home lasix for now monitor creatinine avoid nephrotoxic drugs nephro consult Hyperkalemia Repeat BMP this am as pt with slightly hemolyized sample s/p kayexalate and calcium gluc this am, EKG w/o overt changes can give insulin cocktail if rpt K is elevated Trend BMP Q6h if K remains >6 Metabolic with respiratory acidosis taper steroid keep head end elevated take aspiration precaution bicarb gtt for acidosis Trend serum bicarb and Ca (will need to hold if corrected Ca < 7.5) ENDO h/o DM hold oral hypoglycemic ISS goal to maintain sugar between 140 to 180 FEN -bicarb gtt 100cc - replete prn, monitor K - diabetic/low potassium Dispo: ICU monitoring can transfer to floor if improving hyperkalemia Visit type - Emergency Visit Emergency Visit: Yes ED Registration Date: 06/24/18 Care time: The patient presented to the Emergency Department on the above date and was hospitalized for further evaluation of their emergent condition. - New Patient This patient is new to me today: Yes Date on this admission: 06/25/18 - Critical Care Critical Care patient: Yes Total Critical Care Time (in minutes): 38 Critical Care Statement: The care of this patient involved high complexity decision making to prevent further life threatening deterioration of the patient 's condition and/or to evaluate & treat vital organ system(s) failure or risk of failure.
[2018-06-25] MEDS ORDERED: LACTATED RINGERS SOLUTION 1,000 ML/1,000 ML INFUS.BAG IV SCH (12:15)
--- NOTE | 2018-06-25 12:34 | PN ---
Progress Note (short form) - Note Progress Note: alert, no complaints no memory of events leading to the hospitalization Vital Signs Period Temp Pulse Resp BP Sys/Cintron Pulse Ox Last 24 Hr 97.5 F-98.1 F 73-95 14-20 95-161/47-119 94-97 cor-rrr lungs clear abd firm, nt ext right leg dressing intact labs pending Microbiology 06/24/18 08:30 Blood - Peripheral Venous Blood Culture - Preliminary NO GROWTH OBTAINED AFTER 24 HOURS, INCUBATION TO CONTINUE FOR 4 DAYS. 06/24/18 08:30 Blood - Peripheral Venous Blood Culture - Preliminary NO GROWTH OBTAINED AFTER 24 HOURS, INCUBATION TO CONTINUE FOR 4 DAYS. 06/24/18 09:30 Urine - Urine Sweenye Urine Culture - Final NO GROWTH OBTAINED 06/24/18 09:33 Urine For Antigen Detection Legionella Antigen - Final 06/24/18 09:33 Urine For Antigen Detection Streptococcus pneumoniae Antigen (M - Final Active Medications Albuterol Sulfate (Ventolin 0.083% Nebulizer Soln -) 1 amp NEB Q4H PRN PRN Reason: SHORT OF BREATH/WHEEZING Last Admin: 06/24/18 16:00 Dose: 1 amp Albuterol/Ipratropium (Duoneb -) 1 amp NEB RQID MISSAEL Last Admin: 06/24/18 20:50 Dose: 1 amp Chlorhexidine Gluconate (Hibiclens For Decolonization -) 1 applic TP HS [facility] Last Admin: 06/24/18 21:52 Dose: 1 applic Heparin Sodium (Porcine) (Heparin -) 5,000 unit SQ TID [facility] Last Admin: 06/25/18 06:23 Dose: 5,000 unit Famotidine/Sodium Chloride (Pepcid 20 Mg Premixed Ivpb -) 20 mg in 50 mls @ 100 mls/hr IVPB BID MISSAEL Last Admin: 06/25/18 10:23 Dose: 100 mls/hr Piperacillin Sod/Tazobactam (Sod 2.25 gm/ Dextrose) 50 mls @ 100 mls/hr IVPB Q8H-IV MISSAEL; Protocol Last Admin: 06/25/18 10:23 Dose: 100 mls/hr Sodium Bicarbonate 75 meq/ (Dextrose) 1,075 mls @ 100 mls/hr IV Q10H MISSAEL Last Admin: 06/25/18 06:24 Dose: 100 mls/hr Insulin Aspart (Novolog Vial Sliding Scale -) 1 vial SQ ACHS [facility]; Protocol Last Admin: 06/25/18 12:26 Dose: 10 units Methylprednisolone Sodium Succinate (Solu-Medrol -) 60 mg IVPUSH Q8H-IV [facility] Mupirocin (Bactroban Ointment (For Decolonization) -) 1 applic NS BID [facility] Stop: 06/29/18 21:59 Last Admin: 06/25/18 11:05 Dose: 1 applic a/p sepsis JESÚS/ckd diabetes chronic osteomyelitis left TMA stump continue zosyn, check vancomycin trough in am
[2018-06-25 13:00] LABS: ANION GAP 15 MMOL/L (8-16); BLOOD UREA NITROGEN 68 mg/dL (7-18); CALCIUM 7.7 mg/dL (8.5-10.1); CHLORIDE 100 mmol/L (98-107); CO2 20 mmol/L (21-32); CREATININE 4.8 mg/dL (0.55-1.3); POTASSIUM 5.6 mmol/L (3.5-5.1); SODIUM 135 mmol/L (136-145)
[2018-06-25 13:14] LABS: GLUCOSE,RANDOM 447 mg/dL (74-106)
[2018-06-25] MEDS ORDERED: Insulin (LOG) Aspart 100 UNITS/ML VIAL SQ ONE (13:18)
--- NOTE | 2018-06-25 13:30 | EKG ---
Test Reason : Blood Pressure : / mmHG Vent. Rate : 075 BPM Atrial Rate : 075 BPM P-R Int : 220 ms QRS Dur : 074 ms QT Int : 376 ms P-R-T Axes : 052 023 035 degrees QTc Int : 419 ms SINUS RHYTHM WITH 1ST DEGREE A-V BLOCK LOW VOLTAGE QRS BORDERLINE ECG WHEN COMPARED WITH ECG OF 24-JUN-2018 08:44, QRS AXIS SHIFTED LEFT Confirmed by GIORGIO STAHL MD ([id number]) on 06/25/2018 1:29:52 PM Referred By: Lucius EAGLE Confirmed By:GIORGIO STAHL MD
[2018-06-25 13:59] LABS: BASO % 0.2 % (0-2.0); EOS % 0.1 % (0-4.5); HEMATOCRIT 39.6 % (35.4-49); HEMOGLOBIN 11.4 GM/dL (11.7-16.9); LYMPH % 4.4 % (8-40); MCH 21.1 pg (25.7-33.7); MCHC 28.8 g/dl (32.0-35.9); MEAN CELL VOLUME 73.4 fl (80-96); MEAN PLT VOLUME 9.6 fl (7.5-11.1); MONO % 2.3 % (3.8-10.2); PLATELET COUNT 75 K/MM3 (134-434); RDW 18.6 % (11.9-15.9)
[2018-06-25] MEDS ORDERED: INSULIN (LEVEMIR) 100 UNITS/ML UNITS SQ ONE ×2 (16:30→19:30)
[2018-06-25 16:55] LABS: ANISOCYTOSIS 1+; MACROCYTOSIS 1+
[2018-06-25 16:56] LABS: PLATELET ESTIMATE DECREASED
[2018-06-25 17:24] LABS: ANION GAP 12 MMOL/L (8-16); BLOOD UREA NITROGEN 71 mg/dL (7-18); CALCIUM 7.6 mg/dL (8.5-10.1); CHLORIDE 100 mmol/L (98-107); CO2 21 mmol/L (21-32); CREATININE 4.8 mg/dL (0.55-1.3); POTASSIUM 4.7 mmol/L (3.5-5.1); SODIUM 132 mmol/L (136-145)
[2018-06-25 17:25] LABS: GLUCOSE,RANDOM 514 mg/dL (74-106)
[2018-06-25] MEDS ORDERED: INSULIN (NOVOLOG) ASPART 100 UNITS/ML 10ML VIAL SQ ONE (17:30)
[2018-06-25 20:54] LABS: ALBUMIN 2.6 g/dl (3.4-5.0); ALK PHOS 127 U/L (45-117); ANION GAP 13 MMOL/L (8-16); BILIRUBIN,TOTAL 0.2 mg/dL (0.2-1); BLOOD UREA NITROGEN 67 mg/dL (7-18); CALCIUM 7.6 mg/dL (8.5-10.1); CHLORIDE 99 mmol/L (98-107); CO2 22 mmol/L (21-32); CREATININE 4.8 mg/dL (0.55-1.3); POTASSIUM 4.9 mmol/L (3.5-5.1); SGOT/AST 18 U/L (15-37); SGPT/ALT 17 U/L (13-61); SODIUM 134 mmol/L (136-145); TOT PROT 6.5 g/dl (6.4-8.2)
[2018-06-25 20:59] LABS: GLUCOSE,RANDOM 486 mg/dL (74-106)
[2018-06-25] MEDS ORDERED: INSULIN (LEVEMIR) 100 UNITS/ML UNITS SQ SCH ×2 (22:00)
[2018-06-25] MEDS ORDERED: SODIUM BICARBONATE 8.4% - 75 MEQ in SODIUM CHLORIDE 0.45% 1,000 ML IV SCH (23:15)
[2018-06-25] MEDS: CHLORHEXIDINE GLUCONATE 4% CLEANSER FOR DECOLONIZATION TP SCH (23:26)
[2018-06-25] MEDS ORDERED: INSULIN REGULAR 100 UNITS in SODIUM CHLORIDE 99 ML IVPB SCH (23:30)
[2018-06-26] MEDS ORDERED: PIPERACILLIN/TAZOBACTAM 2.25 GM VIAL IVPB ONE ×3 (00:20→14:09)
[2018-06-26] MEDS ORDERED: DEXTROSE 5%-WATER - 50 ML IVPB ONE ×3 (00:20→14:09)
[2018-06-26] MEDS: INSULIN SLIDING SCALE (NOVOLOG) 1 VIAL SQ SCH ×10 (01:00→21:08)
[2018-06-26] MEDS: PIPERACILLIN/TAZOB 2.25 GM 2.25 GM in DEXTROSE 5%-WATER - 50 ML IVPB SCH ×3 (02:00→18:07)
[2018-06-26] MEDS: methylPREDNISolone NA SUCC 40 MG/1 ML VIAL IVPUSH SCH ×3 (02:00→18:07)
[2018-06-26 05:52] LABS: BASO % 0.2 % (0-2.0); HEMATOCRIT 38.2 % (35.4-49); HEMOGLOBIN 11.4 GM/dL (11.7-16.9); LYMPH % 3.7 % (8-40); MCH 21.5 pg (25.7-33.7); MCHC 29.9 g/dl (32.0-35.9); MEAN PLT VOLUME 11.4 fl (7.5-11.1); MONO % 2.9 % (3.8-10.2); NEUT % 93.2 % (42.8-82.8); PLATELET COUNT 102 K/MM3 (134-434)
[2018-06-26 06:36] LABS: ALBUMIN 2.7 g/dl (3.4-5.0); ALK PHOS 124 U/L (45-117); ANION GAP 10 MMOL/L (8-16); BILIRUBIN,TOTAL 0.2 mg/dL (0.2-1); BLOOD UREA NITROGEN 69 mg/dL (7-18); CALCIUM 7.6 mg/dL (8.5-10.1); CHLORIDE 101 mmol/L (98-107); CO2 26 mmol/L (21-32); CREATININE 4.3 mg/dL (0.55-1.3); GLUCOSE,RANDOM 109 mg/dL (74-106); MAGNESIUM 1.6 mg/dL (1.8-2.4); PHOSPHOROUS 4.2 mg/dL (2.5-4.9); POTASSIUM 4.5 mmol/L (3.5-5.1); SGOT/AST 21 U/L (15-37); SGPT/ALT 18 U/L (13-61); SODIUM 137 mmol/L (136-145); TOT PROT 6.8 g/dl (6.4-8.2)
[2018-06-26] MEDS: HEPARIN NA (PORCINE) 5,000 UNITS/ML 1ML VIAL SQ SCH ×3 (06:40→21:03)
[2018-06-26 07:18] LABS: ARTERIAL BLD GAS O2 SATURATION 96.2 % (90-98.9); ARTERIAL BLOOD GAS BASE EXCESS -1.2 meq/l (-2-2); ARTERIAL BLOOD GAS PCO2 53.4 mmHg (35-45); ARTERIAL BLOOD GAS PO2 86.3 mmHg (80-100)
[2018-06-26 07:39] LABS: ALLENS TEST POSITIVE
[2018-06-26] MEDS: ALBUTEROL SO4 2.5/IPRATROPIUM 0.5 INH SOL 3 ML VIAL.NEB. NEB SCH ×4 (07:53→21:31)
[2018-06-26] MEDS ORDERED: MAGNESIUM OXIDE 400 MG TABLET (FP) PO ONE (08:30)
[2018-06-26] MEDS ORDERED: LACTATED RINGERS SOLUTION 1,000 ML/1,000 ML INFUS.BAG IV SCH ×2 (09:30→18:09)
[2018-06-26] MEDS ORDERED: LABETALOL HCL 5 MG/1 ML (100MG/20 ML VIAL) IVPUSH ONE ×2 (09:30→12:04)
[2018-06-26] MEDS ORDERED: amLODIPine BESYLATE 5 MG TABLET (FP) PO SCH (10:00)
[2018-06-26] MEDS ORDERED: metoPROLOL SUCCINATE 25 MG TAB.SR.24H (FP) PO SCH (10:00)
--- NOTE | 2018-06-26 10:29 | PN ---
Progress Note, Physician Chief Complaint: AWAKE ALERT EVENTS AND NOTES REVIEWED PATIENT DENIES CP/SOB - Current Medication List Current Medications: Active Medications Albuterol Sulfate (Ventolin 0.083% Nebulizer Soln -) 1 amp NEB Q4H PRN PRN Reason: SHORT OF BREATH/WHEEZING Last Admin: 06/24/18 16:00 Dose: 1 amp Albuterol/Ipratropium (Duoneb -) 1 amp NEB RQID [facility] Last Admin: 06/26/18 07:53 Dose: 1 amp Amlodipine Besylate (Norvasc -) 5 mg PO DAILY [facility] Atorvastatin Calcium (Lipitor -) 20 mg PO HS [facility] Chlorhexidine Gluconate (Hibiclens For Decolonization -) 1 applic TP HS MISSAEL Last Admin: 06/25/18 23:26 Dose: 1 applic Heparin Sodium (Porcine) (Heparin -) 5,000 unit SQ TID [facility] Last Admin: 06/26/18 06:40 Dose: 5,000 unit Famotidine/Sodium Chloride (Pepcid 20 Mg Premixed Ivpb -) 20 mg in 50 mls @ 100 mls/hr IVPB BID [facility] Last Admin: 06/25/18 22:00 Dose: 100 mls/hr Piperacillin Sod/Tazobactam (Sod 2.25 gm/ Dextrose) 50 mls @ 100 mls/hr IVPB Q8H-IV [facility]; Protocol Last Admin: 06/26/18 02:00 Dose: 100 mls/hr Lactated Ringer's (Lactated Ringers Solution) 1,000 ml in 1,000 mls @ 100 mls/ hr IV ASDIR [facility] Insulin Aspart (Novolog Vial Sliding Scale -) 1 vial SQ Q2H [facility]; Protocol Last Admin: 06/26/18 06:42 Dose: Not Given Insulin Detemir (Levemir Vial) 30 units SQ HS [facility] Methylprednisolone Sodium Succinate (Solu-Medrol -) 40 mg IVPUSH Q8H-IV MISSAEL Metoprolol Succinate (Toprol Xl -) 25 mg PO DAILY [facility] Mupirocin (Bactroban Ointment (For Decolonization) -) 1 applic NS BID [facility] Stop: 06/29/18 21:59 Last Admin: 06/25/18 23:25 Dose: 1 applic - Objective Vital Signs: Vital Signs Temperature 98.2 F 06/26/18 06:00 Pulse Rate 74 06/26/18 06:00 Respiratory Rate 16 06/26/18 06:00 Blood Pressure 130/50 L 06/26/18 06:00 O2 Sat by Pulse Oximetry (%) 100 06/26/18 07:53 Constitutional: Yes: Mild Distress Eyes: Yes: WNL HENT: Yes: WNL Neck: Yes: WNL Cardiovascular: Yes: WNL Respiratory: Yes: WNL Gastrointestinal: Yes: WNL Genitourinary: Yes: WNL Musculoskeletal: Yes: Other Extremities: Yes: Amputation, Deformity Integumentary: Yes: Pressure Ulcer, Rash, Venous Stasis Changes Wound/Incision: Yes: Dressing Dry and Intact Neurological: Yes: Pre-Existing Deficit ...Motor Strength: LLE, RLE Psychiatric: Yes: Other Labs: CBC, BMP 06/26/18 05:30 06/26/18 05:30 INR, PTT INR 1.19 (0.83-1.09) H 06/25/18 05:30 Problem List - Problems (1) COPD exacerbation Code(s): J44.1 - CHRONIC OBSTRUCTIVE PULMONARY DISEASE W (ACUTE) EXACERBATION (2) Diabetic foot ulcer Code(s): E11.621 - TYPE 2 DIABETES MELLITUS WITH FOOT ULCER; L97.509 - NON- PRESSURE CHRONIC ULCER OTH PRT UNSP FOOT W UNSP SEVERITY (3) History of transmetatarsal amputation of right foot Code(s): Z89.431 - ACQUIRED ABSENCE OF RIGHT FOOT (4) Respiratory failure with hypoxia and hypercapnia Code(s): J96.91 - RESPIRATORY FAILURE, UNSPECIFIED WITH HYPOXIA; J96.92 - RESPIRATORY FAILURE, UNSPECIFIED WITH HYPERCAPNIA (5) Sepsis Code(s): A41.9 - SEPSIS, UNSPECIFIED ORGANISM Qualifiers: (6) JESÚS (acute kidney injury) Code(s): N17.9 - ACUTE KIDNEY FAILURE, UNSPECIFIED (7) Acute kidney injury superimposed on CKD Code(s): N17.9 - ACUTE KIDNEY FAILURE, UNSPECIFIED; N18.9 - CHRONIC KIDNEY DISEASE, UNSPECIFIED (8) Altered mental status Code(s): R41.82 - ALTERED MENTAL STATUS, UNSPECIFIED Qualifiers: Altered mental status type: unspecified Qualified Code(s): R41.82 - Altered mental status, unspecified Assessment/Plan IV ABX PER ID NEBS ATEROIDS MONITOR BGM DVT PROPHYLAXIS WOUND CARE
[2018-06-26] MEDS: MUPIROCIN 2% TOPICAL OINTMENT FOR DECOLONIZATION NS SCH (10:30)
--- NOTE | 2018-06-26 10:32 | PN ---
Progress Note (short form) - Note Progress Note: Renal follow up for JESÚS on CKD Pt seen and examined at the bedside awake and alert complains of non-productive cough making urine via morales no cp, sob, abd pain Vital Signs Temperature 98.2 F 06/26/18 06:00 Pulse Rate 74 06/26/18 06:00 Respiratory Rate 16 06/26/18 06:00 Blood Pressure 130/50 L 06/26/18 06:00 O2 Sat by Pulse Oximetry (%) 100 06/26/18 07:53 Intake & Output 06/23/18 06/24/18 06/25/18 06/26/18 23:59 23:59 23:59 23:59 Intake Total 695 1100 1600 Output Total 650 1850 1000 Balance 45 -750 600 Weight 83.8 kg 84.504 kg 84.504 kg NAD Neck supple RRR CTA, no rales soft NT/ND no LE edmea CBC, BMP 06/26/18 05:30 06/26/18 05:30 Laboratory Tests 06/26/18 05:30 Calcium 7.6 L Phosphorus 4.2 Magnesium 1.6 L Albumin 2.7 L Current Medications Albuterol Sulfate (Ventolin 0.083% Nebulizer Soln -) 1 amp NEB Q4H PRN PRN Reason: SHORT OF BREATH/WHEEZING Last Admin: 06/24/18 16:00 Dose: 1 amp Albuterol/Ipratropium (Duoneb -) 1 amp NEB RQID [facility] Last Admin: 06/26/18 07:53 Dose: 1 amp Amlodipine Besylate (Norvasc -) 5 mg PO DAILY [facility] Atorvastatin Calcium (Lipitor -) 20 mg PO HS [facility] Chlorhexidine Gluconate (Hibiclens For Decolonization -) 1 applic TP HS [facility] Last Admin: 06/25/18 23:26 Dose: 1 applic Heparin Sodium (Porcine) (Heparin -) 5,000 unit SQ TID [facility] Last Admin: 06/26/18 06:40 Dose: 5,000 unit Famotidine/Sodium Chloride (Pepcid 20 Mg Premixed Ivpb -) 20 mg in 50 mls @ 100 mls/hr IVPB BID [facility] Last Admin: 06/25/18 22:00 Dose: 100 mls/hr Piperacillin Sod/Tazobactam (Sod 2.25 gm/ Dextrose) 50 mls @ 100 mls/hr IVPB Q8H-IV MISSAEL; Protocol Last Admin: 06/26/18 02:00 Dose: 100 mls/hr Lactated Ringer's (Lactated Ringers Solution) 1,000 ml in 1,000 mls @ 100 mls/ hr IV ASDIR MISSAEL Insulin Aspart (Novolog Vial Sliding Scale -) 1 vial SQ Q2H MISSAEL; Protocol Last Admin: 06/26/18 06:42 Dose: Not Given Insulin Detemir (Levemir Vial) 30 units SQ HS MISSAEL Methylprednisolone Sodium Succinate (Solu-Medrol -) 40 mg IVPUSH Q8H-IV MISSAEL Metoprolol Succinate (Toprol Xl -) 25 mg PO DAILY MISSAEL Mupirocin (Bactroban Ointment (For Decolonization) -) 1 applic NS BID MISSAEL Stop: 06/29/18 21:59 Last Admin: 06/25/18 23:25 Dose: 1 applic 67 year old AA gentleman with hx of CKD stage 3 (baseline Cr 1.6), Hypertension , COPD, DM, PVD s/p recent admission and discharge who was brought to the ED after being found on the ground by a neightbor and found to have Hypoxic respiratory failure and JESÚS in setting of suspected sepsis. 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
[2018-06-26] MEDS: FAMOTIDINE 20 MG/50 ML IVPB 20 MG/50 ML MG IVPB SCH ×2 (10:35→22:58)
[2018-06-26 11:30] LABS: ANISOCYTOSIS 2+; MACROCYTOSIS 0; OVALOCYTE 1+; PLATELET ESTIMATE DECREASED; TARGET CELLS 1+; TEAR DROP CELLS 1+
[2018-06-26] MEDS ORDERED: TAMSULOSIN HCL 0.4 MG CAP PO SCH (12:15)
--- NOTE | 2018-06-26 12:42 | PN ---
Teaching Attending Note Name of Resident: Tito James ATTENDING PHYSICIAN STATEMENT I saw and evaluated the patient. I reviewed the resident's note and discussed the case with the resident. I agree with the resident's findings and plan as documented. SUBJECTIVE: Pt seen and examined in the ICU. Denies shortness of breath or chest pain. Good urine output. OBJECTIVE: Vital Signs Period Temp Pulse Resp BP Sys/Cintron Pulse Ox Last 24 Hr 98.0 F-98.4 F 70-111 16-20 114-160/50-94 97-100 Intake & Output 06/23/18 06/24/18 06/25/18 06/26/18 23:59 23:59 23:59 23:59 Intake Total 695 1100 1600 Output Total 650 1850 1000 Balance 45 -750 600 Weight 83.8 kg 84.504 kg 84.504 kg Gen: NAD at rest Heart: RRR Lung: decreased breath sounds at the bases Abd: soft, nontender Ext: no edema CBC, BMP 06/26/18 05:30 06/26/18 05:30 Active Medications Albuterol Sulfate (Ventolin 0.083% Nebulizer Soln -) 1 amp NEB Q4H PRN PRN Reason: SHORT OF BREATH/WHEEZING Last Admin: 06/24/18 16:00 Dose: 1 amp Albuterol/Ipratropium (Duoneb -) 1 amp NEB RQID [facility] Last Admin: 06/26/18 11:04 Dose: 1 amp Amlodipine Besylate (Norvasc -) 5 mg PO DAILY [facility] Last Admin: 06/26/18 11:13 Dose: 5 mg Atorvastatin Calcium (Lipitor -) 20 mg PO [facility] Chlorhexidine Gluconate (Hibiclens For Decolonization -) 1 applic TP HS [facility] Last Admin: 06/25/18 23:26 Dose: 1 applic Heparin Sodium (Porcine) (Heparin -) 5,000 unit SQ TID [facility] Last Admin: 06/26/18 06:40 Dose: 5,000 unit Famotidine/Sodium Chloride (Pepcid 20 Mg Premixed Ivpb -) 20 mg in 50 mls @ 100 mls/hr IVPB BID [facility] Last Admin: 06/26/18 10:35 Dose: 100 mls/hr Piperacillin Sod/Tazobactam (Sod 2.25 gm/ Dextrose) 50 mls @ 100 mls/hr IVPB Q8H-IV MISSAEL; Protocol Last Admin: 06/26/18 10:35 Dose: 100 mls/hr Lactated Ringer's (Lactated Ringers Solution) 1,000 ml in 1,000 mls @ 100 mls/ hr IV ASDIR [facility] Last Admin: 06/26/18 10:30 Dose: 100 mls/hr Insulin Aspart (Novolog Vial Sliding Scale -) 1 vial SQ Q2H MISSAEL; Protocol Last Admin: 06/26/18 11:13 Dose: 8 units Insulin Detemir (Levemir Vial) 30 units SQ HS [facility] Methylprednisolone Sodium Succinate (Solu-Medrol -) 40 mg IVPUSH Q8H-IV MISSAEL Last Admin: 06/26/18 11:12 Dose: 40 mg Metoprolol Succinate (Toprol Xl -) 25 mg PO DAILY [facility] Last Admin: 06/26/18 11:13 Dose: 25 mg Mupirocin (Bactroban Ointment (For Decolonization) -) 1 applic NS BID [facility] Stop: 06/29/18 21:59 Last Admin: 06/26/18 10:30 Dose: 1 applic Tamsulosin HCl (Flomax -) 0.4 mg PO DAILY [facility] Trazodone HCl (Desyrel -) 50 mg PO HS [facility] ASSESSMENT AND PLAN: Acute Hypoxic Respiratory Failure improving r/o Pneumonia Severe Sepsis improving Acute on Chronic Renal Failure Metabolic Acidosis Hyperkalemia COPD DM PAD Chronic Osteomyelitis - continue antibiotics - f/u cultures - IVF - monitor urine output, creatinine - O2 to keep SpO2 >90% - inhaled bronchodilators - can taper off medrol - can transfer to floor
--- NOTE | 2018-06-26 12:51 | PN ---
Physical Exam: SUBJECTIVE: Patient seen and examined in the ICU. Mental status back to baseline. c/o of cough/difficulty swallowing food. Hyperkalemia resolved, on levemir for better glucose ctl. Hypertensive in AM, meds restarted. denies cp, sob, SILVESTRE. OBJECTIVE: Vital Signs Period Temp Pulse Resp BP Sys/Cintron Pulse Ox Last 24 Hr 98.0 F-98.4 F 70-111 16-20 114-160/50-94 97-100 GENERAL: AOX3 NAD HEENT: NCAT MMM NECK: Normal range of motion,no JVD, LUNGS: mild crackles at bases. on NC, speaking in full sentence. catheter on right side HEART: RRR, normal S1 and S2, rub or gallop. ABDOMEN: Soft, NTND, obese, normoactive bowel sounds, no guarding, no rebound, no masses. UPPER EXTREMITIES: 2+ pulses, warm, well-perfused. No cyanosis. LOWER EXTREMITIES: b/l skin discoloration. right midtarsal amputation, granulation tissue present, no discharge. L side no open wounds. PSYCHIATRIC: Cooperative. Good eye contact. SKIN: Warm, dry, Laboratory Results - last 24 hr 06/25/18 06/25/18 06/25/18 11:50 11:50 12:20 WBC 12.0 H RBC 5.40 Hgb 11.4 L Hct 39.6 MCV 73.4 L MCH 21.1 L MCHC 28.8 L RDW 18.6 H Plt Count 75 L MPV 9.6 Absolute Neuts (auto) 11.2 H Neutrophils % 93.0 H Neutrophils % (Manual) 90.0 H D Band Neutrophils % 4.0 Lymphocytes % 4.4 L D Lymphocytes % (Manual) 4.0 L D Monocytes % 2.3 L Monocytes % (Manual) 1 L D Eosinophils % 0.1 D Basophils % 0.2 Nucleated RBC % 0 Hypochromia 2+ Platelet Estimate Decreased Platelet Comment No clumping noted Polychromasia 1+ Anisocytosis 1+ Macrocytosis 1+ Anticoagulation Therapy Puncture Site ABG pH ABG pCO2 at Pt Temp ABG pO2 at Pt Temp ABG HCO3 ABG O2 Sat (Measured) ABG O2 Content ABG Base Excess Lee Test O2 Delivery Device Oxygen Flow Rate Vent Mode Vent Rate Mechanical Rate Pressure Support Vent Sodium 135 L Potassium 5.6 H Chloride 100 Carbon Dioxide 20 L Anion Gap 15 BUN 68 H Creatinine 4.8 H Creat Clearance w eGFR 12.20 POC Glucometer > 400 Random Glucose 447 H* Calcium 7.7 L Phosphorus Magnesium Total Bilirubin AST ALT Alkaline Phosphatase Total Protein Albumin Random Vancomycin 06/25/18 06/25/18 06/25/18 12:23 15:31 15:33 WBC RBC Hgb Hct MCV MCH MCHC RDW Plt Count MPV Absolute Neuts (auto) Neutrophils % Neutrophils % (Manual) Band Neutrophils % Lymphocytes % Lymphocytes % (Manual) Monocytes % Monocytes % (Manual) Eosinophils % Basophils % Nucleated RBC % Hypochromia Platelet Estimate Platelet Comment Polychromasia Anisocytosis Macrocytosis Anticoagulation Therapy Puncture Site ABG pH ABG pCO2 at Pt Temp ABG pO2 at Pt Temp ABG HCO3 ABG O2 Sat (Measured) ABG O2 Content ABG Base Excess Lee Test O2 Delivery Device Oxygen Flow Rate Vent Mode Vent Rate Mechanical Rate Pressure Support Vent Sodium Potassium Chloride Carbon Dioxide Anion Gap BUN Creatinine Creat Clearance w eGFR POC Glucometer > 400 > 400 > 400 Random Glucose Calcium Phosphorus Magnesium Total Bilirubin AST ALT Alkaline Phosphatase Total Protein Albumin Random Vancomycin 06/25/18 06/25/18 06/25/18 16:20 19:55 22:34 WBC RBC Hgb Hct MCV MCH MCHC RDW Plt Count MPV Absolute Neuts (auto) Neutrophils % Neutrophils % (Manual) Band Neutrophils % Lymphocytes % Lymphocytes % (Manual) Monocytes % Monocytes % (Manual) Eosinophils % Basophils % Nucleated RBC % Hypochromia Platelet Estimate Platelet Comment Polychromasia Anisocytosis Macrocytosis Anticoagulation Therapy Puncture Site ABG pH ABG pCO2 at Pt Temp ABG pO2 at Pt Temp ABG HCO3 ABG O2 Sat (Measured) ABG O2 Content ABG Base Excess Lee Test O2 Delivery Device Oxygen Flow Rate Vent Mode Vent Rate Mechanical Rate Pressure Support Vent Sodium 132 L 134 L Potassium 4.7 4.9 Chloride 100 99 Carbon Dioxide 21 22 Anion Gap 12 13 BUN 71 H 67 H Creatinine 4.8 H 4.8 H Creat Clearance w eGFR 12.20 12.20 POC Glucometer > 400 Random Glucose 514 H* 486 H* Calcium 7.6 L 7.6 L Phosphorus Magnesium Total Bilirubin 0.2 AST 18 ALT 17 Alkaline Phosphatase 127 H Total Protein 6.5 Albumin 2.6 L Random Vancomycin 06/26/18 06/26/18 06/26/18 00:17 02:09 03:24 WBC RBC Hgb Hct MCV MCH MCHC RDW Plt Count MPV Absolute Neuts (auto) Neutrophils % Neutrophils % (Manual) Band Neutrophils % Lymphocytes % Lymphocytes % (Manual) Monocytes % Monocytes % (Manual) Eosinophils % Basophils % Nucleated RBC % Hypochromia Platelet Estimate Platelet Comment Polychromasia Anisocytosis Macrocytosis Anticoagulation Therapy Puncture Site ABG pH ABG pCO2 at Pt Temp ABG pO2 at Pt Temp ABG HCO3 ABG O2 Sat (Measured) ABG O2 Content ABG Base Excess Lee Test O2 Delivery Device Oxygen Flow Rate Vent Mode Vent Rate Mechanical Rate Pressure Support Vent Sodium Potassium Chloride Carbon Dioxide Anion Gap BUN Creatinine Creat Clearance w eGFR POC Glucometer 274.00335 159.21639 84.49733 Random Glucose Calcium Phosphorus Magnesium Total Bilirubin AST ALT Alkaline Phosphatase Total Protein Albumin Random Vancomycin 06/26/18 06/26/18 06/26/18 04:11 05:14 05:30 WBC RBC Hgb Hct MCV MCH MCHC RDW Plt Count MPV Absolute Neuts (auto) Neutrophils % Neutrophils % (Manual) Band Neutrophils % Lymphocytes % Lymphocytes % (Manual) Monocytes % Monocytes % (Manual) Eosinophils % Basophils % Nucleated RBC % Hypochromia Platelet Estimate Platelet Comment Polychromasia Anisocytosis Macrocytosis Anticoagulation Therapy Puncture Site ABG pH ABG pCO2 at Pt Temp ABG pO2 at Pt Temp ABG HCO3 ABG O2 Sat (Measured) ABG O2 Content ABG Base Excess Lee Test O2 Delivery Device Oxygen Flow Rate Vent Mode Vent Rate Mechanical Rate Pressure Support Vent Sodium Potassium Chloride Carbon Dioxide Anion Gap BUN Creatinine Creat Clearance w eGFR POC Glucometer 160.34639 150.04276 Random Glucose Calcium Phosphorus Magnesium Total Bilirubin AST ALT Alkaline Phosphatase Total Protein Albumin Random Vancomycin 12.4 L 06/26/18 06/26/18 06/26/18 05:30 05:30 06:16 WBC 14.0 H RBC 5.30 Hgb 11.4 L Hct 38.2 MCV 72.0 L MCH 21.5 L MCHC 29.9 L RDW 18.0 H Plt Count 102 L D MPV 11.4 H D Absolute Neuts (auto) 13.0 H Neutrophils % 93.2 H Neutrophils % (Manual) Band Neutrophils % Lymphocytes % 3.7 L Lymphocytes % (Manual) Monocytes % 2.9 L Monocytes % (Manual) Eosinophils % 0.0 D Basophils % 0.2 Nucleated RBC % 0 Hypochromia Platelet Estimate Platelet Comment Polychromasia Anisocytosis Macrocytosis Anticoagulation Therapy Puncture Site ABG pH ABG pCO2 at Pt Temp ABG pO2 at Pt Temp ABG HCO3 ABG O2 Sat (Measured) ABG O2 Content ABG Base Excess Lee Test O2 Delivery Device Oxygen Flow Rate Vent Mode Vent Rate Mechanical Rate Pressure Support Vent Sodium 137 Potassium 4.5 Chloride 101 Carbon Dioxide 26 Anion Gap 10 BUN 69 H Creatinine 4.3 H Creat Clearance w eGFR 13.85 POC Glucometer 112.40639 Random Glucose 109 H Calcium 7.6 L Phosphorus 4.2 Magnesium 1.6 L Total Bilirubin 0.2 AST 21 ALT 18 Alkaline Phosphatase 124 H Total Protein 6.8 Albumin 2.7 L Random Vancomycin 06/26/18 06:20 WBC RBC Hgb Hct MCV MCH MCHC RDW Plt Count MPV Absolute Neuts (auto) Neutrophils % Neutrophils % (Manual) Band Neutrophils % Lymphocytes % Lymphocytes % (Manual) Monocytes % Monocytes % (Manual) Eosinophils % Basophils % Nucleated RBC % Hypochromia Platelet Estimate Platelet Comment Polychromasia Anisocytosis Macrocytosis Anticoagulation Therapy No Result Required. Puncture Site Right radial ABG pH 7.30 L ABG pCO2 at Pt Temp 53.4 H ABG pO2 at Pt Temp 86.3 ABG HCO3 25.4 ABG O2 Sat (Measured) 96.2 ABG O2 Content 16.6 ABG Base Excess -1.2 Lee Test Positive O2 Delivery Device Nasal Oxygen Flow Rate 5l Vent Mode No Result Required. Vent Rate No Result Required. Mechanical Rate No Result Required. Pressure Support Vent No Result Required. Sodium Potassium Chloride Carbon Dioxide Anion Gap BUN Creatinine Creat Clearance w eGFR POC Glucometer Random Glucose Calcium Phosphorus Magnesium Total Bilirubin AST ALT Alkaline Phosphatase Total Protein Albumin Random Vancomycin Active Medications Generic Name Dose Route Start Last Admin Trade Name Freq PRN Reason Stop Dose Admin Albuterol Sulfate 1 amp 06/24/18 11:09 06/24/18 16:00 Ventolin 0.083% Nebulizer Soln - NEB 1 amp Q4H PRN Administration SHORT OF BREATH/WHEEZING Albuterol/Ipratropium 1 amp 06/24/18 12:00 06/26/18 11:04 Duoneb - NEB 1 amp RQID IMSSAEL Administration Amlodipine Besylate 5 mg 06/26/18 10:00 06/26/18 11:13 Norvasc - PO 5 mg DAILY MISSAEL Administration Atorvastatin Calcium 20 mg 06/26/18 22:00 Lipitor - PO HS [facility] Chlorhexidine Gluconate 1 applic 06/24/18 22:00 06/25/18 23:26 Hibiclens For Decolonization - TP 1 applic HS [facility] Administration Heparin Sodium (Porcine) 5,000 unit 06/24/18 14:00 06/26/18 06:40 Heparin - SQ 5,000 unit TID MISSAEL Administration Famotidine/Sodium Chloride 20 mg in 50 mls @ 100 mls/hr 06/24/18 22:00 10:35 Pepcid 20 Mg Premixed Ivpb - IVPB 100 mls/hr BID MISSAEL Administration Piperacillin Sod/Tazobactam 50 mls @ 100 mls/hr 06/24/18 18:00 06/26/18 10:35 Sod 2.25 gm/ Dextrose IVPB 100 mls/hr Q8H-IV MISSAEL Administration Protocol Lactated Ringer's 1,000 ml in 1,000 mls @ 100 mls/hr 06/26/18 09:30 06/26/18 10:30 Lactated Ringers Solution IV 100 mls/hr ASDIR MISSAEL Administration Insulin Aspart 1 vial 06/25/18 21:00 06/26/18 11:13 Novolog Vial Sliding Scale - SQ 8 units Q2H MISSAEL Administration Protocol Insulin Detemir 30 units 06/26/18 22:00 Levemir Vial SQ HS [facility] Methylprednisolone Sodium Succinate 40 mg 06/26/18 09:31 06/26/18 11:12 Solu-Medrol - IVPUSH 40 mg Q8H-IV MISSAEL Administration Metoprolol Succinate 25 mg 06/26/18 10:00 06/26/18 11:13 Toprol Xl - PO 25 mg DAILY MISSAEL Administration Mupirocin 1 applic 06/24/18 22:00 06/26/18 10:30 Bactroban Ointment (For Decolonization) - NS 06/29/18 21:59 1 applic BID MISSAEL Administration Tamsulosin HCl 0.4 mg 06/26/18 12:15 Flomax - PO DAILY MISSAEL Trazodone HCl 50 mg 06/26/18 22:00 Desyrel - PO HS [facility] ASSESSMENT/PLAN: 67 year old male with a significant past medical history of HTN, HLD, COPD, on 3 L of Oxygen at home, DM, PVD, ckd with foot wounds s/p R transmet amputation, osteomyelitis, who presents w/ AMS and acute resp failure 2/2 sepsis 2/2 possible PNA. NEURO Altered mental status- resolved, AOx3 keep head end elevated aspiration precaution. frequent neuro check fall risk precaution CT head neg speech swallow eval - c/o of cough/difficulty swallowing food CARDIAC/ID Sepsis: likely from PNA - improving monitor intake/ output. maintain UO of 1 to 0.5 ml/kg/hr maintain MAP >65 LR 100cc/hr, dc bicarb gtt bcx, ucx, influenza ,legionella and strep negative. cardiac monitoring. repeat ECHO. last echo done in october now pt cxr looks congested and also have increase in bnp. ID consult c/w vanc/zosyn H/o htn - hypertnesive to 190/100 this AM restart home BP meds IV labetolol prn maintain MAP >65 would hold off on LUIS/ARB given JESÚS and if hyperkalemia h/o osteomilitis tunnel cath present on right side on cefepime BID for 5 week, hold for now, c/w vanc zosyn tunnel cath present on right side inserted on 06/13/18 MRI done on 06/08/18 reviewed esr 32 also goes to hyperbaric therapy PULM hypercapnic Respiratory failure - resolved. h/o copd, pulmonary fibrosis o2 to keep spo2> 90. BIPAP prn respiratory support maintaining O2 sat on NC repeat abg w/ improved CO2 , allow for permissive hypercap in consideration of COPD continue nebulizer taper steroid. RENAL jesús on ckd 2/2 renal hypoprofusion (FeNa 0.54% indicating preserved tubular function, US w/o obstruction) - gradually improving with IVF dc morales cath LR 100cc/hr, dc bicarb gtt hold home lasix for now monitor creatinine avoid nephrotoxic drugs nephro consult Hyperkalemia - resolved s/p kayexalate and calcium gluc yesterday, EKG w/o overt changes on nebs and ISS and levemir for DM ctl, which will help for hyper K Metabolic with respiratory acidosis - greatly improved taper steroid keep head end elevated take aspiration precaution -LR 100cc/hr, dc bicarb gtt spoke w/ poison ctl today, at this time nothing to do w/ regards to elevated methhemaglobin on ABG at admission, as pt is clinically improving w/ current tx. If clinically worsens can call for advice and may require attention/tx ENDO h/o DM - yesterday unctl and likely worsened w/ steroid use. Now ctl levemir 30 U HS ISS BGM goal to maintain sugar between 140 to 180 FEN -LR 100cc/hr, dc bicarb gtt - replete prn, monitor K - diabetic/low potassium diet ppx SQH pepcid Dispo: ICU monitoring pt is stable and can be transfer to med surg. Further care per primary team/PCP Visit type - Emergency Visit Emergency Visit: Yes ED Registration Date: 06/24/18 Care time: The patient presented to the Emergency Department on the above date and was hospitalized for further evaluation of their emergent condition. - New Patient This patient is new to me today: Yes Date on this admission: 06/26/18 - Critical Care Critical Care patient: Yes Total Critical Care Time (in minutes): 38 Critical Care Statement: The care of this patient involved high complexity decision making to prevent further life threatening deterioration of the patient 's condition and/or to evaluate & treat vital organ system(s) failure or risk of failure.
--- NOTE | 2018-06-26 15:42 | ECHO ---
Name: KAREN CAMARGO Exam:Adult Echocardiogram Study Date: 06/26/2018 12:59 PM Age: 67 yrs Reason For Study: SOB Height: 67 in Weight: 189 lb BSA: 2.0 m2 MMode/2D Measurements & Calculations IVSd: 1.1 cm Ao root diam: 3.9 cm LVIDd: 4.4 cm LA dimension: 2.9 cm LVIDs: 2.2 cm ACS: 1.7 cm LVPWd: 0.84 cm IVSs: 1.3 cm LVPWs: 1.2 cm EDV(Teich): 86.5 ml ESV(Teich): 15.6 ml Doppler Measurements & Calculations MV E max camilo: 101.4 cm/sec Ao V2 max: 152.0 cm/sec MV A max camilo: 120.7 cm/sec Ao max P.2 mmHg MV E/A: 0.84 Ao V2 mean: 95.7 cm/sec Ao mean P.2 mmHg Ao V2 VTI: 27.8 cm Med Peak E' Camilo: 4.5 cm/sec Med E/e': 22.6 Lat Peak E' Camilo: 5.5 cm/sec Lat E/e': 18.5 Procedure A complete two-dimensional transthoracic echocardiogram was performed (2D, M-mode, Doppler and color flow Doppler). Left Ventricle The left ventricle is normal in size. Left ventricular systolic function is normal. Ejection Fraction = 65- 70%. E/A reversal and TDI reveals impaired relaxation with elevated filling pressure (E/E' 20). No re gional wall motion abnormalities noted. Right Ventricle The right ventricle is normal size. The right ventricular systolic function is normal. Atria The left atrial size is normal. Right atrial size is normal. Mitral Valve There is mild mitral annular calcification. There is no mitral regurgitation noted. Tricuspid Valve The tricuspid valve is normal in structure and function. There is mild tricuspid regurgitation. Aortic Valve There is mild aortic sclerosis.;. No aortic regurgitation is present. Pulmonic Valve The pulmonic valve is not well visualized. Great Vessels Mild aortic root dilatation. Pericardium/Pleura Small pericardial effusion (<1cm). Interpretation Summary The left ventricle is normal in size. Left ventricular systolic function is normal. No regional wall motion abnormalities noted. Ejection Fraction = 65-70%. E/A reversal and TDI reveals impaired relaxation with elevated filling pressure (E/E' 20) The right ventricular systolic function is normal. The left atrial size is normal. Right atrial size is normal. There is mild mitral annular calcification. There is mild tricuspid regurgitation. There is mild aortic sclerosis. Mild aortic root dilatation. Small pericardial effusion (<1cm) Branden Maddox MD 06/26/2018 03:41 PM
--- NOTE | 2018-06-26 15:58 | CONSULT ---
Admitting History and Physical - Primary Care Physician PCP: Skinny Vincent - Admission History of Present Illness: Per EMR: This is a 67 year old male with a significant past medical history of HTN, HLD, COPD, on 3 L of Oxygen at home, DM, PVD, ckd with foot wounds s/p R transmet amputation, osteomyelitis, who presented to the ED BIBA found by his neighbour on ground. He was found to be hypoxic to 85%, placed on Oxygen by EMS. On arrival to the hospital the patient was not able to provide history, answer any of our questions. He was placed on Bi-Pap in er. sepsis protocol was ordered, ABGs, CXR, CT head, urine toxicology were ordered in er. IN ER patinet found to have sherman on ckd and in sepsis ( source likely pneumonia) Pt also found to be in metabolic acidosis in er CT head neg Pt c/o of cough/difficulty swallowing food Last seen 03/22/18 Impression: Delayed, harsh cough. Unclear if related to PO intake. Pt reports 6- 8 weeks duration. Pt was on nectar thick liquid at [place] and thin liquid at [facility]. Out pt MBS was planned. r/o silent aspiration. GERD/LPR? Denies symptoms but reclines after meals at [place]? MBS was normal.Reg diet/thin liquids rec. and GERD precautions. Selected Entries 06/25/18 06/25/18 06/25/18 10:00 11:55 18:30 Breakfast 100% 100% Lunch 50% Supper 100% Temperature 06/25/18 06/26/18 06/26/18 20:00 02:00 06:00 Breakfast 100% Lunch Supper 100% Temperature 98.4 F 98.2 F 06/26/18 06/26/18 06/26/18 09:04 10:00 12:43 Breakfast 100% Lunch 100% Supper Temperature 98 F 06/26/18 14:00 Breakfast Lunch Supper Temperature 98.2 F Laboratory Tests 06/25/18 06/26/18 11:50 05:30 WBC 12.0 H 14.0 H Pt on reg diet/thin liquid, reports difficulty. Completing his meals. Pt reports coughing with and without food. 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 Pt reported coughing up chopped meat and whole peas from the night before. 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 COATING: Yes: CVA Cardiovascular: Yes: HTN, Hyperlipdemia, Other (PAD) Pulmonary: Yes: Asthma, COPD, O2 Dependent, Sleep Apnea Hepatobiliary: Yes: Cholecystitis Renal/: Yes: Renal Inusuff Infectious Disease: Yes: MRSA Musculoskeletal: Yes: Other (chronic foot ulcers) Endocrine: Yes: Diabetes Mellitus - Past Surgical History Past Surgical History: Yes: Amputation (second toe left foot), Appendectomy, Carotid Endarterectomy (right), Cholecystectomy, Hernia Repair, Stent, Tonsillectomy - Smoking History Smoking history: Never smoked Have you smoked in the past 12 months: No Aproximately how many cigarettes per day: 3 If you are a former smoker, when did you quit?: 2017 - Alcohol/Substance Use Hx Alcohol Use: No Number of Drinks Daily: 2 (beer, cr on weekend) History of Substance Use: reports: None - Social History ADL: Independent (uses a walker and wheelchair, in process of getting a scooter) 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 ,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 History of Recent Travel: No History - Admission Reason For Visit: COPD - Diagnostics X-ray: Report Reviewed CT Scan: Report Reviewed - General Mental Status: Alert and Oriented, Awake and Alert, Able to Follow Commands Attention: Intact Ability to Follow Directions: Excellent Head/Neck Control: WFL - Hearing Hearing: Normal Speech Evaluation - Communication Primary Language: ECU[place]ORE[place] Communication: Yes: Within Normal Limits Oral Expression Ability: Yes: No Impairment - Speech Production Able to Make Needs Known: Yes: WNL Intelligibility: Yes: WNL - Speech Characteristics Voice Loudness: Normal Voice Pitch: Yes: Normal Voice Phonatory-based Quality: Yes: Normal Speech Pattern: Normal Speech Clarity: < 100% Nasal Resonance: Normal Articulation: Yes: Precise - Language/Auditory Comprehension Follows: Yes: 2 Stage Simple Commands Observation: Able to respond to yes/no queries: Yes, Comprehends Conversational Speech: Yes - Language/Verbal Expression Able to Respond to Simple Queries: Yes: WNL Able to Communicate Wants and Needs: Yes: WNL Functional Communication Status: Yes: WNL - Memory/Perception 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 Memory: Yes: WNL Short Term Memory: Yes: WNL - Swallow Evaluation/Bedside Assessment Current Nutritional Intake: Regular, Thin Liquids Oral Secretions: Yes: Drooling Dentition: Yes: Edentulous Facial Symmetry at Rest: Symmetrical Facial Symmetry on Retraction: Symmetrical Sensation: Normal Against Resistance Opening: Normal Against Resistance Closing: Normal Pucker Lips: Normal Smile: Normal Lingual Movement: Normal, Symmetric Lingual Speed of Movement: Normal Lingual Movement Strgth Against Opposition: Normal Lingual Movement Characteristics: Normal Velopharyngeal Movement: Normal Laryngeal Elevation: WFL Laryngeal Movement: Able to Palpate Rate of Intake: WFL Bolus Size: WFL Labial Seal: WFL Chewing: WFL Oral Prep Time: WFL A-P Transit: WFL Timing of Swallow: WFL Coughing/Throat Clear: No Change in Voice: No Recommendations - Speech Evaluation, Impression/Plan Impression: Pt on reg diet/thin liquid, reports difficulty. Completing his meals. Pt reports coughing with and without food. Ongoing harsh cough, mcc. Pt reported coughing up chopped meat and whole peas from the night before. MBS (-) March 2018.Denies reclining after meals. - Dysphagia Impressions/Plan Dysphagia Impressions: Risk of Aspiration, Ongoing Evaluation *Silent aspiration: cannot be R/O at bedside Dysphagia Treatment Plan: Safe Rate, 1/2 tsp. at a time, Elevate HOB during feed (upright for 1 hour after meals), Other (alternate solids with liquids) Recommendations: Modified Barium Swallow (r/o aspiration, Zenkers, Stasis, Esoph dysmotility) - Recommendations Diet Consistency: Other (Reg chopped/tuna/egg salad/chicken salad) Medication Administration: Whole with water Liquids: Thin Liquids
--- NOTE | 2018-06-26 16:03 | PN ---
Progress Note, Physician History of Present Illness: Awake, alert, oriented Offers no complaints Afebrile WBC remains elevated Cultures negative - Current Medication List Current Medications: Active Medications Albuterol Sulfate (Ventolin 0.083% Nebulizer Soln -) 1 amp NEB Q4H PRN PRN Reason: SHORT OF BREATH/WHEEZING Last Admin: 06/24/18 16:00 Dose: 1 amp Albuterol/Ipratropium (Duoneb -) 1 amp NEB RQID [facility] Last Admin: 06/26/18 11:04 Dose: 1 amp Amlodipine Besylate (Norvasc -) 5 mg PO DAILY [facility] Last Admin: 06/26/18 11:13 Dose: 5 mg Atorvastatin Calcium (Lipitor -) 20 mg PO HS [facility] Chlorhexidine Gluconate (Hibiclens For Decolonization -) 1 applic TP HS [facility] Last Admin: 06/25/18 23:26 Dose: 1 applic Heparin Sodium (Porcine) (Heparin -) 5,000 unit SQ TID [facility] Last Admin: 06/26/18 06:40 Dose: 5,000 unit Famotidine/Sodium Chloride (Pepcid 20 Mg Premixed Ivpb -) 20 mg in 50 mls @ 100 mls/hr IVPB BID [facility] Last Admin: 06/26/18 10:35 Dose: 100 mls/hr Piperacillin Sod/Tazobactam (Sod 2.25 gm/ Dextrose) 50 mls @ 100 mls/hr IVPB Q8H-IV [facility]; Protocol Last Admin: 06/26/18 10:35 Dose: 100 mls/hr Lactated Ringer's (Lactated Ringers Solution) 1,000 ml in 1,000 mls @ 100 mls/ hr IV ASDIR [facility] Last Admin: 06/26/18 10:30 Dose: 100 mls/hr Insulin Aspart (Novolog Vial Sliding Scale -) 1 vial SQ Q2H [facility]; Protocol Last Admin: 06/26/18 11:13 Dose: 8 units Insulin Detemir (Levemir Vial) 30 units SQ HS [facility] Methylprednisolone Sodium Succinate (Solu-Medrol -) 40 mg IVPUSH Q8H-IV [facility] Last Admin: 06/26/18 11:12 Dose: 40 mg Metoprolol Succinate (Toprol Xl -) 25 mg PO DAILY [facility] Last Admin: 06/26/18 11:13 Dose: 25 mg Mupirocin (Bactroban Ointment (For Decolonization) -) 1 applic NS BID [facility] Stop: 06/29/18 21:59 Last Admin: 06/26/18 10:30 Dose: 1 applic Tamsulosin HCl (Flomax -) 0.4 mg PO DAILY [facility] Trazodone HCl (Desyrel -) 50 mg PO HS [facility] - Objective Vital Signs: Vital Signs Temperature 98.2 F 06/26/18 14:00 Pulse Rate 84 06/26/18 14:00 Respiratory Rate 16 06/26/18 14:00 Blood Pressure 156/86 06/26/18 14:00 O2 Sat by Pulse Oximetry (%) 100 06/26/18 09:00 Constitutional: Yes: No Distress Eyes: Yes: Conjunctiva Clear Cardiovascular: Yes: Regular Rate and Rhythm, S1, S2 Respiratory: Yes: CTA Bilaterally Gastrointestinal: Yes: Normal Bowel Sounds, Soft, Abdomen, Obese. No: Tenderness Extremities: Yes: Other (R TMA) Edema: No Labs: CBC, BMP 06/26/18 05:30 06/26/18 05:30 INR, PTT INR 1.19 (0.83-1.09) H 06/25/18 05:30 Assessment/Plan Sepsis / toxic metabolic encephalopathy- improved Leukocytosis/ thrombocytopenia Acute on chronic renal failure Chronic osteomyelitis Continue zosyn
[2018-06-26] MEDS ORDERED: amLODIPine BESYLATE 5 MG TABLET (FP) PO ONE (17:21)
[2018-06-26] MEDS ORDERED: ALBUTEROL SO4 0.083% IH SOL 2.5 MG/3 ML VIAL.NEB. NEB PRN (18:09)
[2018-06-26] MEDS: traZODone HCL 50 MG TABLET (FP) PO SCH (21:03)
[2018-06-26] MEDS: ATORVASTATIN CA 20 MG TABLET (FP) PO SCH (21:03)
[2018-06-26] MEDS: INSULIN (LEVEMIR) 100 UNITS/ML UNITS SQ SCH (21:08)
[2018-06-26] MEDS ORDERED: INSULIN (LEVEMIR) 100 UNITS/ML UNITS SQ SCH ×2 (22:00)
[2018-06-26] MEDS ORDERED: traZODone HCL 50 MG TABLET (FP) PO SCH (22:00)
[2018-06-26] MEDS ORDERED: FAMOTIDINE 20 MG/50 ML IVPB 20 MG/50 ML MG IVPB SCH (22:00)
[2018-06-26] MEDS ORDERED: ATORVASTATIN CA 20 MG TABLET (FP) PO SCH (22:00)
[2018-06-27] MEDS ORDERED: PIPERACILLIN/TAZOBACTAM 2.25 GM VIAL IVPB ONE ×3 (02:21→17:20)
[2018-06-27] MEDS ORDERED: DEXTROSE 5%-WATER - 50 ML IVPB ONE ×3 (02:22→17:20)
[2018-06-27] MEDS: PIPERACILLIN/TAZOB 2.25 GM 2.25 GM in DEXTROSE 5%-WATER - 50 ML IVPB SCH ×3 (02:32→17:32)
[2018-06-27] MEDS: methylPREDNISolone NA SUCC 40 MG/1 ML VIAL IVPUSH SCH ×3 (02:33→17:32)
[2018-06-27] MEDS ORDERED: INSULIN (NOVOLOG) ASPART 100 UNITS/ML 10ML VIAL ONE (06:27)
[2018-06-27] MEDS: HEPARIN NA (PORCINE) 5,000 UNITS/ML 1ML VIAL SQ SCH ×3 (06:57→23:28)
[2018-06-27] MEDS: INSULIN SLIDING SCALE (NOVOLOG) 1 VIAL SQ SCH ×4 (06:57→23:26)
[2018-06-27 07:52] LABS: HEMATOCRIT 36.4 % (35.4-49); HEMOGLOBIN 11.9 GM/dL (11.7-16.9); LYMPH % 3.7 % (8-40); MCH 23.1 pg (25.7-33.7); MCHC 32.6 g/dl (32.0-35.9); MEAN CELL VOLUME 70.8 fl (80-96); MEAN PLT VOLUME 9.6 fl (7.5-11.1); MONO % 2.3 % (3.8-10.2); PLATELET COUNT 82 K/MM3 (134-434); RBC 5.15 M/mm3 (4.00-5.60); RDW 17.8 % (11.9-15.9); WHITE BLOOD COUNT 10.5 K/mm3 (4.0-10.0)
[2018-06-27 08:04] LABS: ALBUMIN 2.5 g/dl (3.4-5.0); ALK PHOS 150 U/L (45-117); ANION GAP 8 MMOL/L (8-16); BILIRUBIN,TOTAL 0.3 mg/dL (0.2-1); BLOOD UREA NITROGEN 68 mg/dL (7-18); CALCIUM 7.6 mg/dL (8.5-10.1); CHLORIDE 100 mmol/L (98-107); CO2 29 mmol/L (21-32); CREATININE 3.9 mg/dL (0.55-1.3); MAGNESIUM 1.6 mg/dL (1.8-2.4); PHOSPHOROUS 3.7 mg/dL (2.5-4.9); POTASSIUM 4.1 mmol/L (3.5-5.1); SGOT/AST 14 U/L (15-37); SGPT/ALT 19 U/L (13-61); SODIUM 137 mmol/L (136-145); TOT PROT 6.5 g/dl (6.4-8.2)
[2018-06-27 08:08] LABS: GLUCOSE,RANDOM 380 mg/dL (74-106)
[2018-06-27] MEDS: ALBUTEROL SO4 2.5/IPRATROPIUM 0.5 INH SOL 3 ML VIAL.NEB. NEB SCH ×2 (08:52→20:29)
[2018-06-27] MEDS ORDERED: metoPROLOL SUCCINATE 25 MG TAB.SR.24H (FP) PO SCH (10:00)
[2018-06-27] MEDS ORDERED: PT OWN MED DRAWER 7, Y5N ONE (10:21)
[2018-06-27] MEDS: amLODIPine BESYLATE 5 MG TABLET (FP) PO SCH (10:36)
[2018-06-27] MEDS: TAMSULOSIN HCL 0.4 MG CAP PO SCH (10:36)
[2018-06-27 10:50] LABS: ANISOCYTOSIS 1+; MACROCYTOSIS 0; PLATELET ESTIMATE DECREASED; TARGET CELLS 1+
--- NOTE | 2018-06-27 11:05 | PN ---
Progress Note (short form) - Note Progress Note: Renal follow up for JESÚS on CKD Pt seen and examined at the bedside no acute complaints denies any sob, cp, abd pain making urine on IVF Vital Signs Temperature 97.6 F 06/27/18 06:00 Pulse Rate 86 06/27/18 06:00 Respiratory Rate 20 06/27/18 06:00 Blood Pressure 162/91 06/27/18 06:00 O2 Sat by Pulse Oximetry (%) 96 06/27/18 08:51 Intake & Output 06/24/18 06/25/18 06/26/18 06/27/18 23:59 23:59 23:59 23:59 Intake Total 695 1100 4120 300 Output Total 650 1850 2700 1250 Balance 45 -750 1420 -950 Weight 83.8 kg 84.504 kg 84.368 kg 85.91 kg NAD awake and alert RRR CTA no LE edema CBC, BMP 06/27/18 06:55 06/27/18 06:55 Current Medications Albuterol Sulfate (Ventolin 0.083% Nebulizer Soln -) 1 amp NEB Q4H PRN PRN Reason: SHORT OF BREATH/WHEEZING Albuterol/Ipratropium (Duoneb -) 1 amp NEB RQID [facility] Last Admin: 06/27/18 08:52 Dose: 1 amp Amlodipine Besylate (Norvasc -) 5 mg PO DAILY [facility] Last Admin: 06/27/18 10:36 Dose: 5 mg Atorvastatin Calcium (Lipitor -) 20 mg PO HS [facility] Last Admin: 06/26/18 21:03 Dose: 20 mg Heparin Sodium (Porcine) (Heparin -) 5,000 unit SQ TID [facility] Last Admin: 06/27/18 06:57 Dose: 5,000 unit Lactated Ringer's (Lactated Ringers Solution) 1,000 ml in 1,000 mls @ 100 mls/ hr IV ASDIR [facility] Last Admin: 06/27/18 02:34 Dose: 100 mls/hr Piperacillin Sod/Tazobactam (Sod 2.25 gm/ Dextrose) 50 mls @ 100 mls/hr IVPB Q8H-IV [facility]; Protocol Last Admin: 06/27/18 10:36 Dose: 100 mls/hr Famotidine/Sodium Chloride (Pepcid 20 Mg Premixed Ivpb -) 20 mg in 50 mls @ 100 mls/hr IVPB Q36H [facility] Last Admin: 06/26/18 22:58 Dose: Not Given Insulin Aspart (Novolog Vial Sliding Scale -) 1 vial SQ ACHS [facility]; Protocol Last Admin: 06/27/18 06:57 Dose: 12 units Insulin Detemir (Levemir Vial) 30 units SQ HS [facility] Last Admin: 06/26/18 21:08 Dose: 30 units Methylprednisolone Sodium Succinate (Solu-Medrol -) 40 mg IVPUSH Q8H-IV [facility] Last Admin: 06/27/18 10:36 Dose: 40 mg Metoprolol Succinate (Toprol Xl -) 25 mg PO DAILY [facility] Last Admin: 06/27/18 10:36 Dose: 25 mg Tamsulosin HCl (Flomax -) 0.4 mg PO 0830 [facility] Last Admin: 06/27/18 10:36 Dose: 0.4 mg Trazodone HCl (Desyrel -) 50 mg PO HS [facility] Last Admin: 06/26/18 21:03 Dose: 50 mg 67 year old AA gentleman with hx of CKD stage 3 (baseline Cr 1.6), Hypertension , COPD, DM, PVD s/p recent admission and discharge who was brought to the ED after being found on the ground by a neightbor and found to have Hypoxic respiratory failure and JESÚS in setting of suspected sepsis. #Acute Renal Injury on CKD secondary to renal hypoprofusion (FeNa 0.54% indicating preserved tubular function, US w/o obstruction) #Hyperkalemia #Metabolic acidosis #Hypoxic respiratory failure Renal function improving change IVF to 1/2 NS because of hypertension continue metoprolol and amlodipine trend renal function and electrolytes Deven Layton DO
--- NOTE | 2018-06-27 11:36 | PN ---
Progress Note (short form) - Note Progress Note: Resting in NAD. No shortness of breath or chest pain. OBJECTIVE: Intake & Output 06/24/18 06/25/18 06/26/18 06/27/18 23:59 23:59 23:59 23:59 Intake Total 695 1100 4120 300 Output Total 650 1850 2700 1250 Balance 45 -750 1420 -950 Weight 184 lb 11.958 oz 186 lb 4.8 oz 186 lb 189 lb 6.4 oz Last Vital Signs Temp Pulse Resp BP Pulse Ox 97.6 F 86 20 162/91 96 06/27/18 06:00 06/27/18 06:00 06/27/18 06:00 06/27/18 06:00 06/27/18 08:51 Active Medications Albuterol Sulfate (Ventolin 0.083% Nebulizer Soln -) 1 amp NEB Q4H PRN PRN Reason: SHORT OF BREATH/WHEEZING Albuterol/Ipratropium (Duoneb -) 1 amp NEB RQID [facility] Last Admin: 06/27/18 08:52 Dose: 1 amp Amlodipine Besylate (Norvasc -) 5 mg PO DAILY [facility] Last Admin: 06/27/18 10:36 Dose: 5 mg Atorvastatin Calcium (Lipitor -) 20 mg PO HS [facility] Last Admin: 06/26/18 21:03 Dose: 20 mg Heparin Sodium (Porcine) (Heparin -) 5,000 unit SQ TID [facility] Last Admin: 06/27/18 06:57 Dose: 5,000 unit Lactated Ringer's (Lactated Ringers Solution) 1,000 ml in 1,000 mls @ 100 mls/ hr IV ASDIR [facility] Last Admin: 06/27/18 02:34 Dose: 100 mls/hr Piperacillin Sod/Tazobactam (Sod 2.25 gm/ Dextrose) 50 mls @ 100 mls/hr IVPB Q8H-IV [facility]; Protocol Last Admin: 06/27/18 10:36 Dose: 100 mls/hr Famotidine/Sodium Chloride (Pepcid 20 Mg Premixed Ivpb -) 20 mg in 50 mls @ 100 mls/hr IVPB Q36H [facility] Last Admin: 06/26/18 22:58 Dose: Not Given Insulin Aspart (Novolog Vial Sliding Scale -) 1 vial SQ ACHS [facility]; Protocol Last Admin: 06/27/18 06:57 Dose: 12 units Insulin Detemir (Levemir Vial) 30 units SQ HS [facility] Last Admin: 06/26/18 21:08 Dose: 30 units Methylprednisolone Sodium Succinate (Solu-Medrol -) 40 mg IVPUSH Q8H-IV [facility] Last Admin: 06/27/18 10:36 Dose: 40 mg Metoprolol Succinate (Toprol Xl -) 25 mg PO DAILY [facility] Last Admin: 06/27/18 10:36 Dose: 25 mg Tamsulosin HCl (Flomax -) 0.4 mg PO 30 [facility] Last Admin: 06/27/18 10:36 Dose: 0.4 mg Trazodone HCl (Desyrel -) 50 mg PO HS [facility] Last Admin: 06/26/18 21:03 Dose: 50 mg Gen: NAD at rest Heart: RRR Lung: decreased breath sounds at the bases Abd: soft, nontender Ext: no edema Laboratory Results - last 24 hr 06/26/18 06/26/18 06/26/18 05:30 08:40 11:04 WBC RBC Hgb Hct MCV MCH MCHC RDW Plt Count MPV Absolute Neuts (auto) Neutrophils % Neutrophils % (Manual) 88.5 H Band Neutrophils % 5.2 Lymphocytes % Lymphocytes % (Manual) 4.2 L Monocytes % Monocytes % (Manual) 0 L D Eosinophils % Eosinophils % (Manual) 0.0 D Basophils % Basophils % (Manual) 0.0 Myelocytes % (Man) 0 Promyelocytes % (Man) 0 Blast Cells % (Manual) 0 Nucleated RBC % Metamyelocytes 0 Hypochromia 2+ Platelet Estimate Decreased Platelet Comment Present Polychromasia 2+ Poikilocytosis 2+ Basophilic Stippling 1+ Anisocytosis 2+ Microcytosis 2+ Macrocytosis 0 Target Cells 1+ Tear Drop Cells 1+ Ovalocytes 1+ Smith Cells 1+ Sodium Potassium Chloride Carbon Dioxide Anion Gap BUN Creatinine Creat Clearance w eGFR POC Glucometer 78.22231 [phone] Random Glucose Calcium Phosphorus Magnesium Total Bilirubin AST ALT Alkaline Phosphatase Total Protein Albumin 06/26/18 06/26/18 06/26/18 15:35 17:52 20:58 WBC RBC Hgb Hct MCV MCH MCHC RDW Plt Count MPV Absolute Neuts (auto) Neutrophils % Neutrophils % (Manual) Band Neutrophils % Lymphocytes % Lymphocytes % (Manual) Monocytes % Monocytes % (Manual) Eosinophils % Eosinophils % (Manual) Basophils % Basophils % (Manual) Myelocytes % (Man) Promyelocytes % (Man) Blast Cells % (Manual) Nucleated RBC % Metamyelocytes Hypochromia Platelet Estimate Platelet Comment Polychromasia Poikilocytosis Basophilic Stippling Anisocytosis Microcytosis Macrocytosis Target Cells Tear Drop Cells Ovalocytes Edd Cells Sodium Potassium Chloride Carbon Dioxide Anion Gap BUN Creatinine Creat Clearance w eGFR POC Glucometer 315.17868 286.31527 [phone] Random Glucose Calcium Phosphorus Magnesium Total Bilirubin AST ALT Alkaline Phosphatase Total Protein Albumin 06/27/18 06/27/18 06/27/18 06:12 06:55 06:55 WBC 10.5 H RBC 5.15 Hgb 11.9 Hct 36.4 MCV 70.8 L MCH 23.1 L MCHC 32.6 RDW 17.8 H Plt Count 82 L MPV 9.6 D Absolute Neuts (auto) 9.9 H Neutrophils % 94.0 H Neutrophils % (Manual) 93.9 H Band Neutrophils % 1.0 Lymphocytes % 3.7 L Lymphocytes % (Manual) 4.1 L Monocytes % 2.3 L Monocytes % (Manual) 0 L Eosinophils % 0.0 Eosinophils % (Manual) 0.0 Basophils % 0.0 Basophils % (Manual) 0.0 Myelocytes % (Man) 1 D Promyelocytes % (Man) 0 Blast Cells % (Manual) 0 Nucleated RBC % 0 Metamyelocytes 0 Hypochromia 0 Platelet Estimate Decreased Platelet Comment Polychromasia 0 Poikilocytosis 1+ Basophilic Stippling Anisocytosis 1+ Microcytosis 1+ Macrocytosis 0 Target Cells 1+ Tear Drop Cells Ovalocytes Smith Cells Sodium 137 Potassium 4.1 Chloride 100 Carbon Dioxide 29 Anion Gap 8 BUN 68 H Creatinine 3.9 H Creat Clearance w eGFR 15.50 POC Glucometer 388 Random Glucose 380 H* Calcium 7.6 L Phosphorus 3.7 Magnesium 1.6 L Total Bilirubin 0.3 AST 14 L ALT 19 Alkaline Phosphatase 150 H Total Protein 6.5 Albumin 2.5 L ASSESSMENT AND PLAN: Acute Hypoxic Respiratory Failure improving r/o Pneumonia Severe Sepsis improving Acute on Chronic Renal Failure Metabolic Acidosis Hyperkalemia COPD DM PAD Chronic Osteomyelitis - ABX - IVF per Renal - monitor urine output, creatinine - O2 to keep SpO2 >90% - inhaled bronchodilators - Medrol taper Dr Bailey
--- NOTE | 2018-06-27 15:23 | PN ---
Progress Note, Physician Chief Complaint: AWAKE ALERT EVENTS AND NOTES REVIEWED PATIENT DENIES CP/SOB - Current Medication List Current Medications: Active Medications Albuterol Sulfate (Ventolin 0.083% Nebulizer Soln -) 1 amp NEB Q4H PRN PRN Reason: SHORT OF BREATH/WHEEZING Albuterol/Ipratropium (Duoneb -) 1 amp NEB RQID [facility] Last Admin: 06/27/18 08:52 Dose: 1 amp Amlodipine Besylate (Norvasc -) 5 mg PO DAILY [facility] Last Admin: 06/27/18 10:36 Dose: 5 mg Atorvastatin Calcium (Lipitor -) 20 mg PO HS [facility] Last Admin: 06/26/18 21:03 Dose: 20 mg Heparin Sodium (Porcine) (Heparin -) 5,000 unit SQ TID [facility] Last Admin: 06/27/18 14:03 Dose: 5,000 unit Lactated Ringer's (Lactated Ringers Solution) 1,000 ml in 1,000 mls @ 100 mls/ hr IV ASDIR [facility] Last Admin: 06/27/18 02:34 Dose: 100 mls/hr Piperacillin Sod/Tazobactam (Sod 2.25 gm/ Dextrose) 50 mls @ 100 mls/hr IVPB Q8H-IV [facility]; Protocol Last Admin: 06/27/18 10:36 Dose: 100 mls/hr Famotidine/Sodium Chloride (Pepcid 20 Mg Premixed Ivpb -) 20 mg in 50 mls @ 100 mls/hr IVPB Q36H [facility] Last Admin: 06/26/18 22:58 Dose: Not Given Insulin Aspart (Novolog Vial Sliding Scale -) 1 vial SQ ACHS [facility]; Protocol Last Admin: 06/27/18 14:03 Dose: 14 units Insulin Detemir (Levemir Vial) 30 units SQ HS [facility] Last Admin: 06/26/18 21:08 Dose: 30 units Methylprednisolone Sodium Succinate (Solu-Medrol -) 40 mg IVPUSH Q8H-IV [facility] Last Admin: 06/27/18 10:36 Dose: 40 mg Metoprolol Succinate (Toprol Xl -) 25 mg PO DAILY [facility] Last Admin: 06/27/18 10:36 Dose: 25 mg Tamsulosin HCl (Flomax -) 0.4 mg PO 0830 [facility] Last Admin: 06/27/18 10:36 Dose: 0.4 mg Trazodone HCl (Desyrel -) 50 mg PO HS [facility] Last Admin: 06/26/18 21:03 Dose: 50 mg - Objective Vital Signs: Vital Signs Temperature 97.8 F 06/27/18 10:00 Pulse Rate 79 06/27/18 10:00 Respiratory Rate 16 06/27/18 10:00 Blood Pressure 168/96 06/27/18 15:15 O2 Sat by Pulse Oximetry (%) 96 06/27/18 08:51 Constitutional: Yes: Mild Distress Eyes: Yes: WNL HENT: Yes: WNL Neck: Yes: WNL Cardiovascular: Yes: WNL Respiratory: Yes: WNL Gastrointestinal: Yes: WNL Genitourinary: Yes: Other Musculoskeletal: Yes: Muscle Weakness Extremities: Yes: Amputation, Deformity Integumentary: Yes: Other Wound/Incision: Yes: Dressing Dry and Intact Neurological: Yes: Pre-Existing Deficit ...Motor Strength: LLE, RLE Psychiatric: Yes: WNL Labs: CBC, BMP 06/27/18 06:55 06/27/18 12:30 INR, PTT INR 1.19 (0.83-1.09) H 06/25/18 05:30 Problem List - Problems (1) COPD exacerbation Code(s): J44.1 - CHRONIC OBSTRUCTIVE PULMONARY DISEASE W (ACUTE) EXACERBATION (2) Diabetic foot ulcer Code(s): E11.621 - TYPE 2 DIABETES MELLITUS WITH FOOT ULCER; L97.509 - NON- PRESSURE CHRONIC ULCER OTH PRT UNSP FOOT W UNSP SEVERITY (3) History of transmetatarsal amputation of right foot Code(s): Z89.431 - ACQUIRED ABSENCE OF RIGHT FOOT (4) Respiratory failure with hypoxia and hypercapnia Code(s): J96.91 - RESPIRATORY FAILURE, UNSPECIFIED WITH HYPOXIA; J96.92 - RESPIRATORY FAILURE, UNSPECIFIED WITH HYPERCAPNIA (5) Sepsis Code(s): A41.9 - SEPSIS, UNSPECIFIED ORGANISM Qualifiers: (6) JESÚS (acute kidney injury) Code(s): N17.9 - ACUTE KIDNEY FAILURE, UNSPECIFIED (7) Acute kidney injury superimposed on CKD Code(s): N17.9 - ACUTE KIDNEY FAILURE, UNSPECIFIED; N18.9 - CHRONIC KIDNEY DISEASE, UNSPECIFIED (8) Altered mental status Code(s): R41.82 - ALTERED MENTAL STATUS, UNSPECIFIED Qualifiers: Altered mental status type: unspecified Qualified Code(s): R41.82 - Altered mental status, unspecified Assessment/Plan IV ABX PER ID NEBS ATEROIDS MONITOR BGM DVT PROPHYLAXIS WOUND CARE
[2018-06-27] MEDS: metoPROLOL SUCCINATE 25 MG TAB.SR.24H (FP) PO SCH ×2 (15:49→23:23)
[2018-06-27] MEDS: SODIUM CHLORIDE 0.45% 1,000 ML IV SCH (17:32)
[2018-06-27] MEDS: ATORVASTATIN CA 20 MG TABLET (FP) PO SCH (23:23)
[2018-06-27] MEDS: traZODone HCL 50 MG TABLET (FP) PO SCH (23:23)
[2018-06-27] MEDS: INSULIN (LEVEMIR) 100 UNITS/ML UNITS SQ SCH (23:26)
[2018-06-28] MEDS ORDERED: PIPERACILLIN/TAZOBACTAM 2.25 GM VIAL IVPB ONE ×3 (02:08→16:01)
[2018-06-28] MEDS ORDERED: DEXTROSE 5%-WATER - 50 ML IVPB ONE ×3 (02:09→16:01)
[2018-06-28] MEDS: PIPERACILLIN/TAZOB 2.25 GM 2.25 GM in DEXTROSE 5%-WATER - 50 ML IVPB SCH ×3 (02:19→17:28)
[2018-06-28] MEDS: methylPREDNISolone NA SUCC 40 MG/1 ML VIAL IVPUSH SCH ×3 (02:19→17:27)
[2018-06-28] MEDS: HEPARIN NA (PORCINE) 5,000 UNITS/ML 1ML VIAL SQ SCH ×3 (06:04→21:22)
[2018-06-28] MEDS: INSULIN SLIDING SCALE (NOVOLOG) 1 VIAL SQ SCH ×4 (06:58→21:23)
[2018-06-28] MEDS ORDERED: INSULIN (NOVOLOG) ASPART 100 UNITS/ML 10ML VIAL ONE ×3 (07:04→21:21)
[2018-06-28] MEDS: ALBUTEROL SO4 2.5/IPRATROPIUM 0.5 INH SOL 3 ML VIAL.NEB. NEB SCH ×4 (07:50→20:29)
[2018-06-28 08:35] LABS: ANION GAP 11 MMOL/L (8-16); BLOOD UREA NITROGEN 60 mg/dL (7-18); CALCIUM 7.8 mg/dL (8.5-10.1); CHLORIDE 102 mmol/L (98-107); CO2 27 mmol/L (21-32); CREATININE 3.2 mg/dL (0.55-1.3); GLUCOSE,RANDOM 169 mg/dL (74-106); MAGNESIUM 1.8 mg/dL (1.8-2.4); PHOSPHOROUS 3.7 mg/dL (2.5-4.9); POTASSIUM 4.1 mmol/L (3.5-5.1); SODIUM 140 mmol/L (136-145)
[2018-06-28] MEDS: SODIUM CHLORIDE 0.45% 1,000 ML IV SCH (10:00)
[2018-06-28] MEDS: TAMSULOSIN HCL 0.4 MG CAP PO SCH (10:36)
[2018-06-28] MEDS: amLODIPine BESYLATE 5 MG TABLET (FP) PO SCH (10:36)
[2018-06-28] MEDS: metoPROLOL SUCCINATE 25 MG TAB.SR.24H (FP) PO SCH ×2 (10:36→21:22)
[2018-06-28] MEDS: FAMOTIDINE 20 MG/50 ML IVPB 20 MG/50 ML MG IVPB SCH (10:37)
--- NOTE | 2018-06-28 11:42 | PN ---
Progress Note, Physician History of Present Illness: Awake, alert, oriented Seated in bed Offers no complaints Afebrile WBC remains improved Cultures negative Remains thrombocytopenic Azotemia improved - Current Medication List Current Medications: Active Medications Albuterol Sulfate (Ventolin 0.083% Nebulizer Soln -) 1 amp NEB Q4H PRN PRN Reason: SHORT OF BREATH/WHEEZING Albuterol/Ipratropium (Duoneb -) 1 amp NEB RQID [facility] Last Admin: 06/28/18 07:50 Dose: 1 amp Amlodipine Besylate (Norvasc -) 5 mg PO DAILY [facility] Last Admin: 06/28/18 10:36 Dose: 5 mg Atorvastatin Calcium (Lipitor -) 20 mg PO HS [facility] Last Admin: 06/27/18 23:23 Dose: 20 mg Heparin Sodium (Porcine) (Heparin -) 5,000 unit SQ TID [facility] Last Admin: 06/28/18 06:04 Dose: 5,000 unit Piperacillin Sod/Tazobactam (Sod 2.25 gm/ Dextrose) 50 mls @ 100 mls/hr IVPB Q8H-IV [facility]; Protocol Last Admin: 06/28/18 10:36 Dose: 100 mls/hr Famotidine/Sodium Chloride (Pepcid 20 Mg Premixed Ivpb -) 20 mg in 50 mls @ 100 mls/hr IVPB Q36H [facility] Last Admin: 06/28/18 10:37 Dose: 100 mls/hr Sodium Chloride (1/2 Normal Saline) 1,000 mls @ 75 mls/hr IV ASDIR [facility] Last Admin: 06/27/18 17:32 Dose: 75 mls/hr Insulin Aspart (Novolog Vial Sliding Scale -) 1 vial SQ ACHS [facility]; Protocol Last Admin: 06/28/18 06:58 Dose: 4 units Insulin Detemir (Levemir Vial) 30 units SQ HS [facility] Last Admin: 06/27/18 23:26 Dose: 30 units Methylprednisolone Sodium Succinate (Solu-Medrol -) 40 mg IVPUSH Q8H-IV [facility] Last Admin: 06/28/18 10:36 Dose: 40 mg Metoprolol Succinate (Toprol Xl -) 25 mg PO BID [facility] Last Admin: 06/28/18 10:36 Dose: 25 mg Tamsulosin HCl (Flomax -) 0.4 mg PO 0830 [facility] Last Admin: 06/28/18 10:36 Dose: 0.4 mg Trazodone HCl (Desyrel -) 50 mg PO HS [facility] Last Admin: 06/27/18 23:23 Dose: 50 mg - Objective Vital Signs: Vital Signs Temperature 98.1 F 06/28/18 09:10 Pulse Rate 60 06/28/18 10:49 Respiratory Rate 20 06/28/18 09:10 Blood Pressure 176/97 H 06/28/18 09:10 O2 Sat by Pulse Oximetry (%) 100 06/27/18 21:00 Constitutional: Yes: No Distress Eyes: Yes: Conjunctiva Clear Cardiovascular: Yes: Regular Rate and Rhythm, S1, S2 Respiratory: Yes: Rhonchi, Other (+ crepitations at bases) Gastrointestinal: Yes: Normal Bowel Sounds, Soft. No: Tenderness Extremities: Yes: Other (R TMA site with granulation tissue + serous drainage on dressing) Labs: CBC, BMP 06/27/18 06:55 06/28/18 07:15 INR, PTT INR 1.19 (0.83-1.09) H 06/25/18 05:30 Assessment/Plan Sepsis / toxic metabolic encephalopathy- improved Leukocytosis/ thrombocytopenia Acute on chronic renal failure Chronic osteomyelitis Continue zosyn When ready for discharge will resume outpatient cefepime 2gm q12h ( Needs additional 3w treatment for osteomyelitis)
[2018-06-28] MEDS ORDERED: amLODIPine BESYLATE 5 MG TABLET (FP) PO ONE (11:46)
--- NOTE | 2018-06-28 12:47 | PN ---
Progress Note, BOOK TRIMMER - Note Progress Note: Selected Entries 06/28/18 06/28/18 06/28/18 06:00 09:10 12:25 Breakfast 75% Lunch 75% Temperature 97.5 F L 98.1 F Laboratory Tests 06/26/18 06/27/18 05:30 06:55 WBC 14.0 H 10.5 H MBS completed. Increase drinking during and at the end of meal to reduce stasis in the pharynx with solids. Tolerating diet.
--- NOTE | 2018-06-28 16:26 | PN ---
Progress Note, Physician History of Present Illness: PULMONARY ALERT,FEELING BETTER,LESS DYSPNIEC+ COUGH YELLOW SPUTUM - Current Medication List Current Medications: Active Medications Albuterol Sulfate (Ventolin 0.083% Nebulizer Soln -) 1 amp NEB Q4H PRN PRN Reason: SHORT OF BREATH/WHEEZING Albuterol/Ipratropium (Duoneb -) 1 amp NEB RQID [facility] Last Admin: 06/28/18 15:10 Dose: 1 amp Amlodipine Besylate (Norvasc -) 10 mg PO DAILY [facility] Atorvastatin Calcium (Lipitor -) 20 mg PO HS [facility] Last Admin: 06/27/18 23:23 Dose: 20 mg Heparin Sodium (Porcine) (Heparin -) 5,000 unit SQ TID [facility] Last Admin: 06/28/18 13:56 Dose: 5,000 unit Piperacillin Sod/Tazobactam (Sod 2.25 gm/ Dextrose) 50 mls @ 100 mls/hr IVPB Q8H-IV [facility]; Protocol Last Admin: 06/28/18 10:36 Dose: 100 mls/hr Famotidine/Sodium Chloride (Pepcid 20 Mg Premixed Ivpb -) 20 mg in 50 mls @ 100 mls/hr IVPB Q36H [facility] Last Admin: 06/28/18 10:37 Dose: 100 mls/hr Sodium Chloride (1/2 Normal Saline) 1,000 mls @ 75 mls/hr IV ASDIR [facility] Last Admin: 06/27/18 17:32 Dose: 75 mls/hr Insulin Aspart (Novolog Vial Sliding Scale -) 1 vial SQ ACHS [facility]; Protocol Last Admin: 06/28/18 12:08 Dose: 8 units Insulin Detemir (Levemir Vial) 30 units SQ HS [facility] Last Admin: 06/27/18 23:26 Dose: 30 units Methylprednisolone Sodium Succinate (Solu-Medrol -) 40 mg IVPUSH Q8H-IV [facility] Last Admin: 06/28/18 10:36 Dose: 40 mg Metoprolol Succinate (Toprol Xl -) 25 mg PO BID [facility] Last Admin: 06/28/18 10:36 Dose: 25 mg Tamsulosin HCl (Flomax -) 0.4 mg PO 0830 [facility] Last Admin: 06/28/18 10:36 Dose: 0.4 mg Trazodone HCl (Desyrel -) 50 mg PO HS [facility] Last Admin: 06/27/18 23:23 Dose: 50 mg - Objective Vital Signs: Vital Signs Temperature 98.1 F 06/28/18 09:10 Pulse Rate 66 06/28/18 14:43 Respiratory Rate 20 06/28/18 09:10 Blood Pressure 161/81 06/28/18 14:43 O2 Sat by Pulse Oximetry (%) 97 06/28/18 09:00 Constitutional: Yes: Well Nourished, Calm Eyes: Yes: WNL HENT: Yes: WNL Neck: Yes: WNL Cardiovascular: Yes: Regular Rate and Rhythm, S1, S2 Respiratory: Yes: Rhonchi (VAISHALI RHONCHI) Gastrointestinal: Yes: Normal Bowel Sounds, Soft Extremities: Yes: Amputation (R TRANSMETATARSAL) Edema: No Labs: CBC, BMP 06/28/18 07:15 INR, PTT INR 1.19 (0.83-1.09) H 06/25/18 05:30 Problem List - Problems (1) COPD exacerbation Code(s): J44.1 - CHRONIC OBSTRUCTIVE PULMONARY DISEASE W (ACUTE) EXACERBATION (2) History of transmetatarsal amputation of right foot Code(s): Z89.431 - ACQUIRED ABSENCE OF RIGHT FOOT (3) Respiratory failure with hypoxia and hypercapnia Code(s): J96.91 - RESPIRATORY FAILURE, UNSPECIFIED WITH HYPOXIA; J96.92 - RESPIRATORY FAILURE, UNSPECIFIED WITH HYPERCAPNIA (4) Sepsis Code(s): A41.9 - SEPSIS, UNSPECIFIED ORGANISM Qualifiers: (5) Acute kidney injury superimposed on CKD Code(s): N17.9 - ACUTE KIDNEY FAILURE, UNSPECIFIED; N18.9 - CHRONIC KIDNEY DISEASE, UNSPECIFIED (6) CAP (community acquired pneumonia) Code(s): J18.9 - PNEUMONIA, UNSPECIFIED ORGANISM (7) Cellulitis Code(s): L03.90 - CELLULITIS, UNSPECIFIED (8) Diabetes mellitus type 2 with peripheral artery disease Code(s): E11.51 - TYPE 2 DIABETES W DIABETIC PERIPHERAL ANGIOPATH W/O GANGRENE (9) History of hypertension Code(s): Z86.79 - PERSONAL HISTORY OF OTHER DISEASES OF THE CIRCULATORY SYSTEM Assessment/Plan ASSESSMENT AND PLAN: Acute Hypoxic Respiratory Failure r/o Pneumonia Severe Sepsis Acute on Chronic Renal Failure Metabolic Acidosis Hyperkalemia COPD DM PAD Chronic Osteomyelitis - continue antibiotics - monitor urine output, creatinine - monitor lytes - O2 to keep SpO2 >90% - inhaled bronchodilators - taper medrol DR PERKINS
[2018-06-28 16:44] VITALS: BMI 29.2
--- NOTE | 2018-06-28 16:48 | PN ---
Progress Note, Physician Chief Complaint: AWAKE ALERT PREPARING FOR DISCHARGE HOME - Current Medication List Current Medications: Active Medications Albuterol Sulfate (Ventolin 0.083% Nebulizer Soln -) 1 amp NEB Q4H PRN PRN Reason: SHORT OF BREATH/WHEEZING Albuterol/Ipratropium (Duoneb -) 1 amp NEB RQID [facility] Last Admin: 06/28/18 15:10 Dose: 1 amp Amlodipine Besylate (Norvasc -) 10 mg PO DAILY [facility] Atorvastatin Calcium (Lipitor -) 20 mg PO HS [facility] Last Admin: 06/27/18 23:23 Dose: 20 mg Heparin Sodium (Porcine) (Heparin -) 5,000 unit SQ TID [facility] Last Admin: 06/28/18 13:56 Dose: 5,000 unit Piperacillin Sod/Tazobactam (Sod 2.25 gm/ Dextrose) 50 mls @ 100 mls/hr IVPB Q8H-IV [facility]; Protocol Last Admin: 06/28/18 10:36 Dose: 100 mls/hr Famotidine/Sodium Chloride (Pepcid 20 Mg Premixed Ivpb -) 20 mg in 50 mls @ 100 mls/hr IVPB Q36H [facility] Last Admin: 06/28/18 10:37 Dose: 100 mls/hr Sodium Chloride (1/2 Normal Saline) 1,000 mls @ 75 mls/hr IV ASDIR [facility] Last Admin: 06/27/18 17:32 Dose: 75 mls/hr Insulin Aspart (Novolog Vial Sliding Scale -) 1 vial SQ ACHS [facility]; Protocol Last Admin: 06/28/18 12:08 Dose: 8 units Insulin Detemir (Levemir Vial) 30 units SQ HS [facility] Last Admin: 06/27/18 23:26 Dose: 30 units Methylprednisolone Sodium Succinate (Solu-Medrol -) 40 mg IVPUSH Q8H-IV [facility] Last Admin: 06/28/18 10:36 Dose: 40 mg Metoprolol Succinate (Toprol Xl -) 25 mg PO BID [facility] Last Admin: 06/28/18 10:36 Dose: 25 mg Tamsulosin HCl (Flomax -) 0.4 mg PO 0830 [facility] Last Admin: 06/28/18 10:36 Dose: 0.4 mg Trazodone HCl (Desyrel -) 50 mg PO HS [facility] Last Admin: 06/27/18 23:23 Dose: 50 mg - Objective Vital Signs: Vital Signs Temperature 98.1 F 06/28/18 09:10 Pulse Rate 66 06/28/18 14:43 Respiratory Rate 20 06/28/18 09:10 Blood Pressure 161/81 06/28/18 14:43 O2 Sat by Pulse Oximetry (%) 97 06/28/18 09:00 Constitutional: Yes: Mild Distress Eyes: Yes: WNL HENT: Yes: WNL Neck: Yes: WNL Cardiovascular: Yes: WNL Respiratory: Yes: WNL Gastrointestinal: Yes: WNL Genitourinary: Yes: Other Musculoskeletal: Yes: Muscle Weakness Extremities: Yes: Amputation, Deformity Integumentary: Yes: Other Wound/Incision: Yes: Dressing Dry and Intact, Unapproximated Neurological: Yes: Loss of Sensation, Pre-Existing Deficit ...Motor Strength: LLE, RLE Psychiatric: Yes: WNL Labs: CBC, BMP 06/27/18 06:55 06/28/18 07:15 INR, PTT INR 1.19 (0.83-1.09) H 06/25/18 05:30 Problem List - Problems (1) COPD exacerbation Code(s): J44.1 - CHRONIC OBSTRUCTIVE PULMONARY DISEASE W (ACUTE) EXACERBATION (2) Diabetic foot ulcer Code(s): E11.621 - TYPE 2 DIABETES MELLITUS WITH FOOT ULCER; L97.509 - NON- PRESSURE CHRONIC ULCER OTH PRT UNSP FOOT W UNSP SEVERITY (3) History of transmetatarsal amputation of right foot Code(s): Z89.431 - ACQUIRED ABSENCE OF RIGHT FOOT (4) Respiratory failure with hypoxia and hypercapnia Code(s): J96.91 - RESPIRATORY FAILURE, UNSPECIFIED WITH HYPOXIA; J96.92 - RESPIRATORY FAILURE, UNSPECIFIED WITH HYPERCAPNIA (5) Sepsis Code(s): A41.9 - SEPSIS, UNSPECIFIED ORGANISM Qualifiers: (6) JESÚS (acute kidney injury) Code(s): N17.9 - ACUTE KIDNEY FAILURE, UNSPECIFIED (7) Acute kidney injury superimposed on CKD Code(s): N17.9 - ACUTE KIDNEY FAILURE, UNSPECIFIED; N18.9 - CHRONIC KIDNEY DISEASE, UNSPECIFIED (8) Altered mental status Code(s): R41.82 - ALTERED MENTAL STATUS, UNSPECIFIED Qualifiers: Altered mental status type: unspecified Qualified Code(s): R41.82 - Altered mental status, unspecified Assessment/Plan DC PLANNING FOR TOMORROW WILL NEED IV ABX HOME HEALTH AID WILL NEED OUTPATIENT LABS
--- NOTE | 2018-06-28 20:09 | PN ---
Progress Note (short form) - Note Progress Note: Renal follow up for JESÚS on CKD Pt seen and examined at the bedside has productive cough no sob, cp, abd pain making urine Vital Signs Temperature 97.6 F 06/27/18 06:00 Pulse Rate 86 06/27/18 06:00 Respiratory Rate 20 06/27/18 06:00 Blood Pressure 162/91 06/27/18 06:00 O2 Sat by Pulse Oximetry (%) 96 06/27/18 08:51 Intake & Output 06/24/18 06/25/18 06/26/18 06/27/18 23:59 23:59 23:59 23:59 Intake Total 695 1100 4120 300 Output Total 650 1850 2700 1250 Balance 45 -750 1420 -950 Weight 83.8 kg 84.504 kg 84.368 kg 85.91 kg NAD awake and alert RRR CTA no LE edema CBC, BMP 06/27/18 06:55 06/28/18 07:15 Current Medications Albuterol Sulfate (Ventolin 0.083% Nebulizer Soln -) 1 amp NEB Q4H PRN PRN Reason: SHORT OF BREATH/WHEEZING Albuterol/Ipratropium (Duoneb -) 1 amp NEB RQID [facility] Last Admin: 06/28/18 15:10 Dose: 1 amp Amlodipine Besylate (Norvasc -) 10 mg PO DAILY [facility] Atorvastatin Calcium (Lipitor -) 20 mg PO HS [facility] Last Admin: 06/27/18 23:23 Dose: 20 mg Heparin Sodium (Porcine) (Heparin -) 5,000 unit SQ TID [facility] Last Admin: 06/28/18 13:56 Dose: 5,000 unit Piperacillin Sod/Tazobactam (Sod 2.25 gm/ Dextrose) 50 mls @ 100 mls/hr IVPB Q8H-IV [facility]; Protocol Last Admin: 06/28/18 17:28 Dose: 100 mls/hr Famotidine/Sodium Chloride (Pepcid 20 Mg Premixed Ivpb -) 20 mg in 50 mls @ 100 mls/hr IVPB Q36H [facility] Last Admin: 06/28/18 10:37 Dose: 100 mls/hr Sodium Chloride (1/2 Normal Saline) 1,000 mls @ 75 mls/hr IV ASDIR [facility] Last Admin: 06/28/18 10:00 Dose: 75 mls/hr Insulin Aspart (Novolog Vial Sliding Scale -) 1 vial SQ [facility]; Protocol Last Admin: 06/28/18 17:38 Dose: 6 units Insulin Detemir (Levemir Vial) 30 units SQ [facility] Last Admin: 06/27/18 23:26 Dose: 30 units Methylprednisolone Sodium Succinate (Solu-Medrol -) 40 mg IVPUSH Q8H-IV [facility] Last Admin: 06/28/18 17:27 Dose: 40 mg Metoprolol Succinate (Toprol Xl -) 25 mg PO BID [facility] Last Admin: 06/28/18 10:36 Dose: 25 mg Tamsulosin HCl (Flomax -) 0.4 mg PO 0830 [facility] Last Admin: 06/28/18 10:36 Dose: 0.4 mg Trazodone HCl (Desyrel -) 50 mg PO [facility] Last Admin: 06/27/18 23:23 Dose: 50 mg 67 year old AA gentleman with hx of CKD stage 3 (baseline Cr 1.6), Hypertension , COPD, DM, PVD s/p recent admission and discharge who was brought to the ED after being found on the ground by a neightbor and found to have Hypoxic respiratory failure and JESÚS in setting of suspected sepsis. #Acute Renal Injury on CKD secondary to renal hypoprofusion (FeNa 0.54% indicating preserved tubular function, US w/o obstruction) #Hyperkalemia #Metabolic acidosis #Hypoxic respiratory failure renal function improving plan to discontinue IVF in AM trend renal function and electrolytes Deven Layton DO
[2018-06-28] MEDS: traZODone HCL 50 MG TABLET (FP) PO SCH (21:22)
[2018-06-28] MEDS: INSULIN (LEVEMIR) 100 UNITS/ML UNITS SQ SCH (21:22)
[2018-06-28] MEDS: ATORVASTATIN CA 20 MG TABLET (FP) PO SCH (21:22)
[2018-06-28] MEDS ORDERED: PT OWN MED DRAWER 7, Y5N ONE ×2 (21:31→22:54)
[2018-06-29] MEDS ORDERED: PIPERACILLIN/TAZOBACTAM 2.25 GM VIAL IVPB ONE ×2 (01:02→09:06)
[2018-06-29] MEDS ORDERED: DEXTROSE 5%-WATER - 50 ML IVPB ONE ×2 (01:03→09:06)
[2018-06-29] MEDS: PIPERACILLIN/TAZOB 2.25 GM 2.25 GM in DEXTROSE 5%-WATER - 50 ML IVPB SCH ×2 (01:20→10:42)
[2018-06-29] MEDS: methylPREDNISolone NA SUCC 40 MG/1 ML VIAL IVPUSH SCH (01:20)
[2018-06-29] MEDS: SODIUM CHLORIDE 0.45% 1,000 ML IV SCH (01:24)
[2018-06-29] MEDS ORDERED: oxyCODONE HCL 5 MG TABLET PO ONE (02:58)
[2018-06-29] MEDS ORDERED: PT OWN MED DRAWER 7, Y5N ONE (06:05)
[2018-06-29] MEDS: HEPARIN NA (PORCINE) 5,000 UNITS/ML 1ML VIAL SQ SCH (06:25)
[2018-06-29] MEDS: INSULIN SLIDING SCALE (NOVOLOG) 1 VIAL SQ SCH ×2 (07:06→12:26)
[2018-06-29] MEDS: ALBUTEROL SO4 2.5/IPRATROPIUM 0.5 INH SOL 3 ML VIAL.NEB. NEB SCH (07:40)
[2018-06-29 07:58] LABS: ANION GAP 7 MMOL/L (8-16); BLOOD UREA NITROGEN 59 mg/dL (7-18); CALCIUM 7.7 mg/dL (8.5-10.1); CHLORIDE 103 mmol/L (98-107); CO2 31 mmol/L (21-32); CREATININE 2.7 mg/dL (0.55-1.3); GLUCOSE,RANDOM 80 mg/dL (74-106); MAGNESIUM 1.6 mg/dL (1.8-2.4); PHOSPHOROUS 3.7 mg/dL (2.5-4.9); POTASSIUM 4.1 mmol/L (3.5-5.1); SODIUM 141 mmol/L (136-145)
--- NOTE | 2018-06-29 08:36 | PN ---
Progress Note (short form) - Note Progress Note: Resting in NAD. No shortness of breath or chest pain. No acute events overnight. OBJECTIVE: Intake & Output 06/26/18 06/27/18 06/28/18 06/29/18 23:59 23:59 23:59 23:59 Intake Total 4120 2165 2790 Output Total 2700 3160 1400 Balance 1420 -995 1390 Weight 186 lb 189 lb 6.4 oz 187 lb 14.4 oz 188 lb 9.6 oz Last Vital Signs Temp Pulse Resp BP Pulse Ox 97.7 F 62 20 171/80 H 97 06/29/18 06:00 06/29/18 06:00 06/29/18 06:00 06/29/18 06:00 06/28/18 21:00 Active Medications Albuterol Sulfate (Ventolin 0.083% Nebulizer Soln -) 1 amp NEB Q4H PRN PRN Reason: SHORT OF BREATH/WHEEZING Albuterol/Ipratropium (Duoneb -) 1 amp NEB RQID [facility] Last Admin: 06/28/18 20:29 Dose: 1 amp Amlodipine Besylate (Norvasc -) 10 mg PO DAILY [facility] Atorvastatin Calcium (Lipitor -) 20 mg PO HS [facility] Last Admin: 06/28/18 21:22 Dose: 20 mg Heparin Sodium (Porcine) (Heparin -) 5,000 unit SQ TID [facility] Last Admin: 06/29/18 06:25 Dose: 5,000 unit Piperacillin Sod/Tazobactam (Sod 2.25 gm/ Dextrose) 50 mls @ 100 mls/hr IVPB Q8H-IV [facility]; Protocol Last Admin: 06/29/18 01:20 Dose: 100 mls/hr Famotidine/Sodium Chloride (Pepcid 20 Mg Premixed Ivpb -) 20 mg in 50 mls @ 100 mls/hr IVPB Q36H [facility] Last Admin: 06/28/18 10:37 Dose: 100 mls/hr Sodium Chloride (1/2 Normal Saline) 1,000 mls @ 75 mls/hr IV ASDIR [facility] Last Admin: 06/29/18 01:24 Dose: 75 mls/hr Insulin Aspart (Novolog Vial Sliding Scale -) 1 vial SQ ACHS [facility]; Protocol Last Admin: 06/29/18 07:06 Dose: Not Given Insulin Detemir (Levemir Vial) 30 units SQ [facility] Last Admin: 06/28/18 21:22 Dose: 30 units Methylprednisolone Sodium Succinate (Solu-Medrol -) 40 mg IVPUSH Q8H-IV [facility] Last Admin: 06/29/18 01:20 Dose: 40 mg Metoprolol Succinate (Toprol Xl -) 25 mg PO BID [facility] Last Admin: 06/28/18 21:22 Dose: 25 mg Tamsulosin HCl (Flomax -) 0.4 mg PO 0830 [facility] Last Admin: 06/28/18 10:36 Dose: 0.4 mg Trazodone HCl (Desyrel -) 50 mg PO [facility] Last Admin: 06/28/18 21:22 Dose: 50 mg Gen: NAD at rest Heart: RRR Lung: decreased breath sounds at the bases Abd: soft, nontender Ext: no edema Laboratory Results - last 24 hr 06/28/18 06/28/18 06/28/18 12:02 17:37 20:43 Sodium Potassium Chloride Carbon Dioxide Anion Gap BUN Creatinine Creat Clearance w eGFR POC Glucometer 269 249 216 Random Glucose Calcium Phosphorus Magnesium 06/29/18 06/29/18 06:00 07:04 Sodium 141 Potassium 4.1 Chloride 103 Carbon Dioxide 31 Anion Gap 7 L BUN 59 H Creatinine 2.7 H Creat Clearance w eGFR 23.69 POC Glucometer 74 Random Glucose 80 Calcium 7.7 L Phosphorus 3.7 Magnesium 1.6 L ASSESSMENT AND PLAN: Acute Hypoxic Respiratory Failure improving r/o Pneumonia Severe Sepsis improving Acute on Chronic Renal Failure Metabolic Acidosis Hyperkalemia COPD DM PAD Chronic Osteomyelitis - ABX per ID - monitor urine output, creatinine - O2 to keep SpO2 >90% - inhaled bronchodilators - Wean Medrol today Dr Bailey
--- NOTE | 2018-06-29 09:40 | DS ---
Physical Examination Vital Signs: Vital Signs Temperature 97.7 F 06/29/18 06:00 Pulse Rate 62 06/29/18 06:00 Respiratory Rate 20 06/29/18 06:00 Blood Pressure 171/80 H 06/29/18 06:00 O2 Sat by Pulse Oximetry (%) 97 06/28/18 21:00 Constitutional: Yes: No Distress Eyes: Yes: WNL HENT: Yes: WNL Neck: Yes: WNL Cardiovascular: Yes: WNL Respiratory: Yes: WNL Gastrointestinal: Yes: WNL Renal/: Yes: Other Extremities: Yes: Amputation, Deformity Integumentary: Yes: Other Wound/Incision: Yes: Dressing Dry and Intact Neurological: Yes: Pre-Existing Deficit ...Motor Strength: LLE, RLE Psychiatric: Yes: Other Labs: CBC, BMP 06/27/18 06:55 06/29/18 06:00 Discharge Summary Reason For Visit: COPD Current Active Problems COPD exacerbation (Acute) Diabetic foot ulcer (Acute) History of transmetatarsal amputation of right foot (Acute) Respiratory failure with hypoxia and hypercapnia (Acute) Sepsis (Acute) Procedures: Principal: admitted toxicmetabolic encephalopathy, sepsis, osteomyelitis, dm, managed in ivu and med/surge. dc home with picc line and iv abx 3 wks Hospital Course: strict diabetic diet picc line for 3 weeks cefipime 2gm q12hrs for 3 week therapy see your doctor in 1-2 weeks for labs Condition: Critical - Instructions Diet, Activity, Other Instructions: strict diabetic diet picc line with cefipime 2gm q12hrs for 3 weeks Referrals: Johnny Giron MD, [Primary Care Provider] - Disposition: VNS/HOME HEALTH CARE - Home Medications Comprehensive Discharge Medication List: Ambulatory Orders Tamsulosin HCl [Flomax -] 0.4 mg PO DAILY 05/11/16 traZODone HCL [Desyrel -] 50 mg PO HS 05/11/16 Metoprolol Succinate [Toprol XL -] 25 mg PO DAILY tab.sr.24h 07/19/16 Amlodipine Besylate [Norvasc -] 5 mg PO DAILY tablet 10/29/16 Pantoprazole Sodium [Protonix] 40 mg PO DAILY 01/25/17 Furosemide [Lasix] 20 mg PO DAILY #0 mg 03/08/17 Pregabalin [Lyrica -] 150 mg PO BID 05/11/17 Ferrous Sulfate [Feosol] 325 mg PO BID ud 11/11/17 Ergocalciferol (Vitamin D2) [Drisdol] 1 tab PO WEEKLY 01/11/18 Pramipexole Di-HCl [Mirapex] 0.5 mg PO DAILY 01/11/18 Albuterol 2.5/Ipratropium 0.5 [Duoneb -] 1 amp NEB RQID amp 03/02/18 Polyethylene Glycol 3350 [Miralax 119 gm Btl -] 17 gm PO DAILY bottle 03/02/18 Sennosides [Senna -] 2 tab PO HS tablet 03/02/18 Zinc Sulfate [Orazinc -] 220 mg PO BID capsule 03/02/18 Aclidinium [place] [Tudorza Pressair] 400 mcg IH DAILY 04/10/18 Acetaminophen 650 mg PO Q6H PRN 04/11/18 Ascorbic Acid [Vitamin C -] 500 mg PO BID 04/11/18 Atorvastatin Ca [Lipitor] 20 mg PO HS 04/11/18 Clopidogrel Bisulfate [Plavix -] 75 mg PO DAILY 04/11/18 Docusate Sodium [Colace -] 300 mg PO HS 04/11/18 Memantine HCl 5 mg PO BID 04/11/18 oxyCODONE HCL [Roxicodone -] 10 mg PO Q6H PRN MDD 4 04/11/18 Insulin (Levemir) [Levemir Vial] 32 units SQ AM 06/06/18 Budesonide/Formeterol Fumarate [SYMBICORT 160/4.5mcg -] 2 puff IH BID #1 inhaler MDD 2 06/13/18 Fluticasone Prop 0.05% Nasal [Flonase -] 1 spray NS BID #1 spray 06/13/18
[2018-06-29] MEDS ORDERED: methylPREDNISolone NA SUCC 40 MG/1 ML VIAL IVPUSH SCH (10:00)
[2018-06-29] MEDS ORDERED: amLODIPine BESYLATE 10 MG TABLET (FP) PO SCH (10:00)
[2018-06-29] MEDS: TAMSULOSIN HCL 0.4 MG CAP PO SCH (10:41)
[2018-06-29] MEDS: metoPROLOL SUCCINATE 25 MG TAB.SR.24H (FP) PO SCH (10:42)
--- NOTE | 2018-06-29 11:19 | PN ---
Progress Note (short form) - Note Progress Note: Renal follow up for JESÚS on CKD Pt seen and examined at the bedside no acute complaints making urine no sob, cp, abd pain for discharge home today Vital Signs Temperature 97.7 F 06/29/18 06:00 Pulse Rate 62 06/29/18 06:00 Respiratory Rate 20 06/29/18 06:00 Blood Pressure 171/80 H 06/29/18 06:00 O2 Sat by Pulse Oximetry (%) 97 06/28/18 21:00 Intake & Output 06/26/18 06/27/18 06/28/18 06/29/18 23:59 23:59 23:59 23:59 Intake Total 4120 2165 2790 Output Total 2700 3160 1400 Balance 1420 -995 1390 Weight 84.368 kg 85.91 kg 85.23 kg 85.548 kg NAD awake and alert CTA no LE edema CBC, BMP 06/27/18 06:55 06/29/18 06:00 Current Medications Albuterol Sulfate (Ventolin 0.083% Nebulizer Soln -) 1 amp NEB Q4H PRN PRN Reason: SHORT OF BREATH/WHEEZING Albuterol/Ipratropium (Duoneb -) 1 amp NEB RQID [facility] Last Admin: 06/29/18 07:40 Dose: 1 amp Amlodipine Besylate (Norvasc -) 10 mg PO DAILY [facility] Last Admin: 06/29/18 10:41 Dose: 10 mg Atorvastatin Calcium (Lipitor -) 20 mg PO HS [facility] Last Admin: 06/28/18 21:22 Dose: 20 mg Heparin Sodium (Porcine) (Heparin -) 5,000 unit SQ TID [facility] Last Admin: 06/29/18 06:25 Dose: 5,000 unit Piperacillin Sod/Tazobactam (Sod 2.25 gm/ Dextrose) 50 mls @ 100 mls/hr IVPB Q8H-IV [facility]; Protocol Last Admin: 06/29/18 10:42 Dose: 100 mls/hr Famotidine/Sodium Chloride (Pepcid 20 Mg Premixed Ivpb -) 20 mg in 50 mls @ 100 mls/hr IVPB Q36H [facility] Last Admin: 06/28/18 10:37 Dose: 100 mls/hr Sodium Chloride (1/2 Normal Saline) 1,000 mls @ 75 mls/hr IV ASDIR [facility] Last Admin: 06/29/18 01:24 Dose: 75 mls/hr Insulin Aspart (Novolog Vial Sliding Scale -) 1 vial SQ [facility]; Protocol Last Admin: 06/29/18 07:06 Dose: Not Given Insulin Detemir (Levemir Vial) 30 units SQ HS [facility] Last Admin: 06/28/18 21:22 Dose: 30 units Methylprednisolone Sodium Succinate (Solu-Medrol -) 30 mg IVPUSH BID [facility] Last Admin: 06/29/18 10:42 Dose: 30 mg Metoprolol Succinate (Toprol Xl -) 25 mg PO BID [facility] Last Admin: 06/29/18 10:42 Dose: 25 mg Tamsulosin HCl (Flomax -) 0.4 mg PO 0830 [facility] Last Admin: 06/29/18 10:41 Dose: 0.4 mg Trazodone HCl (Desyrel -) 50 mg PO HS [facility] Last Admin: 06/28/18 21:22 Dose: 50 mg 67 year old AA gentleman with hx of CKD stage 3 (baseline Cr 1.6), Hypertension , COPD, DM, PVD s/p recent admission and discharge who was brought to the ED after being found on the ground by a neightbor and found to have Hypoxic respiratory failure and JESÚS in setting of suspected sepsis. #Acute Renal Injury on CKD secondary to renal hypoprofusion (FeNa 0.54% indicating preserved tubular function, US w/o obstruction) #Hyperkalemia #Metabolic acidosis #Hypoxic respiratory failure Renal function improving s/p IVF pt able to tolerate oral diet and appears evolemic at the present time can be discharged with follow up in our office next week would not restart diuretics or LUIS/ARB at this time continue Metorpolol ER 25mg BID and Amlodipine 10mg Daily for BP control Add Hydralazine 25mg BID as BP is above gaol at the present time taper steroids as per pulmonary Deven Layton DO
[2018-06-29 11:45] VITALS: BP 160/103; PULSE 78; TEMP 98.2
[2018-06-29] MEDS ORDERED: hydrALAZINE HCL 25 MG TABLET (FP) PO SCH (12:00)
== END 2018-06-29 13:09 | disposition home health service (06) | DRG 871 ==
LOC: JER 08:28 → JERBED 11:43 → JICU 13:35 → J8W 06-26 21:45
PROVIDERS: ADMIT Internal Medicine; ATTEND Family Medicine
PROC: 5A09457 Assistance with Respiratory Ventilation, 24-96 Consecutive Hours, Continuous Positive Airway Pressure (ICD-10-PCS; principal; 2018-06-24)
DX: A41.9 Sepsis, unspecified organism (principal); J96.01 Acute respiratory failure with hypoxia; J96.02 Acute respiratory failure with hypercapnia; G93.41 Metabolic encephalopathy; J18.9 Pneumonia, unspecified organism; N17.9 Acute kidney failure, unspecified; E87.2 Acidosis; L97.508 Non-pressure chronic ulcer of other part of unspecified foot with other specified severity; M86.60 Other chronic osteomyelitis, unspecified site; I69.354 Hemiplegia and hemiparesis following cerebral infarction affecting left non-dominant side; E87.4 Mixed disorder of acid-base balance; R65.20 Severe sepsis without septic shock; R41.82 Altered mental status, unspecified; R50.9 Fever, unspecified; J44.9 Chronic obstructive pulmonary disease, unspecified; E11.51 Type 2 diabetes mellitus with diabetic peripheral angiopathy without gangrene; E87.5 Hyperkalemia; I12.9 Hypertensive chronic kidney disease with stage 1 through stage 4 chronic kidney disease, or unspecified chronic kidney disease; E11.22 Type 2 diabetes mellitus with diabetic chronic kidney disease; N18.3 Chronic kidney disease, stage 3 (moderate); E78.5 Hyperlipidemia, unspecified; Z99.81 Dependence on supplemental oxygen; G47.30 Sleep apnea, unspecified; E11.621 Type 2 diabetes mellitus with foot ulcer; Z89.422 Acquired absence of other left toe(s); J84.10 Pulmonary fibrosis, unspecified; Z87.891 Personal history of nicotine dependence; D72.829 Elevated white blood cell count, unspecified; D69.6 Thrombocytopenia, unspecified
CPT/HCPCS: 36415; 36600; 70450-TC; 71045-TC-FY; 74230-TC-FY; 76775-TC; 76856-TC; 80048; 80053; 80307; 81003; 81015; 82140; 82375; 82436; 82550; 82553; 82570; 82803; 82947; 82962; 83050; 83605; 83735; 83880; 84100; 84133; 84156; 84300; 84484; 85025; 85610; 85651; 85730; 86140; 87040; 87086; 87804; 87899; 92611-GN; 93005; 93010; 93306-TC; 94640; 94660; 99285-25; G0277; G0480; J1644; J7030

== ENCOUNTER → 2018-08-03 | Day surgery (SDC) | payer OTHER, BC | END | disposition home or self-care (01) | LOC: JRADIR 09:20 | PROVIDERS: ATTEND Internal Medicine | PROC: 0JPT0XZ Removal of Tunneled Vascular Access Device from Trunk Subcutaneous Tissue and Fascia, Open Approach (ICD-10-PCS; principal; 2018-08-03) | DX: Z45.2 Encounter for adjustment and management of vascular access device (principal) | CPT/HCPCS: 36589; 82962; G0277 ==

== ENCOUNTER 2018-08-21 05:05 | Day surgery (SDC) | payer OTHER, BC ==
[2018-08-16 13:29] VITALS: BMI 25.3
[~2018-08-21 05:05] MED LIST: LIDOCAINE HCL 1%, 10 MG/ML (20ML VIAL) INF ONE
[2018-08-21] MEDS ORDERED: HEPARIN NA (PORCINE) 5,000 UNITS/ML 1ML VIAL ONE (10:08)
[2018-08-21] MEDS ORDERED: LIDOCAINE HCL 1%, 10 MG/ML (20ML VIAL) ONE (10:08)
--- NOTE | 2018-08-21 10:13 | HP ---
[facility] - Chief Complaint History of Present Illness: 67 year old man with severe PAD, DM and non-healing amputation wound of right foot. He was found on ultrasound to have occlusion of the right SFA. History Source: Patient, Medical Record Limitations to Obtaining History: No Limitations - Past Medical History Allergies/Adverse Reactions: Allergies Allergy/AdvReac Type Severity Reaction Status Date / Time No Known Drug Allergies Allergy Verified 08/21/18 09:20 [employer]IST: Yes: CVA Cardiovascular: Yes: HTN, Hyperlipdemia, Other (PAD) Pulmonary: Yes: Asthma, COPD, O2 Dependent, Sleep Apnea Hepatobiliary: Yes: Cholecystitis Renal/: Yes: Renal Inusuff Infectious Disease: Yes: MRSA Musculoskeletal: Yes: Other (chronic foot ulcers) Endocrine: Yes: Diabetes Mellitus - Current Medications Current Medications: Home Medications Medication Instructions Recorded Tamsulosin HCl [Flomax -] 0.4 mg PO DAILY 05/11/16 traZODone HCL [Desyrel -] 50 mg PO HS 05/11/16 Metoprolol Succinate [Toprol XL -] 25 mg PO DAILY tab.sr.24h 07/19/16 Amlodipine Besylate [Norvasc -] 5 mg PO DAILY tablet 10/29/16 Pantoprazole Sodium [Protonix] 40 mg PO DAILY 01/25/17 Pregabalin [Lyrica -] 150 mg PO BID 05/11/17 Ferrous Sulfate [Feosol] 325 mg PO BID ud 11/11/17 Ergocalciferol (Vitamin D2) 1 tab PO WEEKLY 01/11/18 [Drisdol] Pramipexole Di-HCl [Mirapex] 0.5 mg PO DAILY 01/11/18 Albuterol 2.5/Ipratropium 0.5 1 amp NEB RQID amp 03/02/18 [Duoneb -] Zinc Sulfate [Orazinc -] 220 mg PO BID capsule 03/02/18 Aclidinium [place] [Tudorza 400 mcg IH DAILY 04/10/18 Pressair] Acetaminophen 650 mg PO Q6H PRN 04/11/18 Ascorbic Acid [Vitamin C -] 500 mg PO BID 04/11/18 Atorvastatin Ca [Lipitor] 20 mg PO HS 04/11/18 Clopidogrel Bisulfate [Plavix -] 75 mg PO DAILY 04/11/18 Docusate Sodium [Colace -] 300 mg PO HS 04/11/18 Memantine HCl 5 mg PO BID 04/11/18 oxyCODONE HCL [Roxicodone -] 10 mg PO Q6H PRN MDD 4 04/11/18 Insulin (Levemir) [Levemir Vial] 35 units SQ HS 06/06/18 Doxycycline Hyclate 100 mg PO BID 08/16/18 Furosemide [Lasix] 20 mg PO DAILY 08/16/18 Oxybutynin Chloride [Ditropan Xl] 5 mg PO DAILY 08/16/18 Rifampin 300 mg PO DAILY 08/16/18 Satellite Physical Exam - Physical Examination Vital Signs: Vital Signs Period Temp Pulse Resp BP Sys/Cintron Pulse Ox Last 24 Hr 97.5 F-97.5 F 62-62 20-20 100-100/61-61 95 General Appearance: Alert & Oriented x3 ENT: Clear Lung: Clear to auscultation Heart: Regular rate & rhythm Abdomen: Soft Extremities: Other (Right TMA with open wound) Neurological: Intact Satellite Impression/Plan - Impression/Plan Impression: Occlusion right SFA and distal wound in foot. Operative Procedure: Angiogram right leg Date to be Performed: 08/21/18
[2018-08-21] MEDS ORDERED: MIDAZOLAM HCL 2 MG/2 ML SINGLE DOSE VIAL ONE (11:01)
[2018-08-21] MEDS ORDERED: LIDOCAINE HCL 1%, 10 MG/ML (20ML VIAL) INF ONE ×2 (12:10)
[2018-08-21] MEDS ORDERED: BACITRACIN 15 GM TUBE TOPICAL OINTMENT ONE (12:27)
--- NOTE | 2018-08-21 13:00 | OP ---
Operative Note - Note: Operative Date: 08/21/18 Pre-Operative Diagnosis: Non-healing wound right foot Operation: Revascularization right femoral with angioplasty Findings: Occlusion of right SFA stent from groin to knee. Patent popliteal with 2 vessel runoff to foot Post-Operative Diagnosis: Same as Pre-op Surgeon: Jay Sanders Soa Engineer: Dequan Medrano Anesthesiologist/LICENSED LOAN OFFICER: Enedina Peoples MD Anesthesia: Fractional
[2018-08-21] MEDS ORDERED: ACETAMINOPHEN WITH CODEINE 300MG/30MG TABLET PO PRN (13:01)
[2018-08-21] MEDS ORDERED: ASPIRIN 81 MG CHEWABLE TABLETS PO SCH (13:15)
--- NOTE | 2018-08-21 14:21 | OP ---
DATE OF SUGERY: 08/21/2018 SURGEON: Jay Arana MD BLOCK FEEDER: PASHA Ahuja PROCEDURE: Revascularization right femoral artery with angioplasty. PREOPERATIVE DIAGNOSIS: Nonhealing right foot wound. 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 ANESTHESIA: Fractional. ANESTHESIOLOGIST: Enedina Peoples MD OPERATIVE FINDINGS: The distal aorta and iliac arteries were patent with calcified plaque and moderate narrowing of the right external iliac artery. The right common femoral artery contained calcified plaque with moderate narrowing. The deep femoral artery was patent. The superficial femoral artery was occluded and contained stents extending from just distal to its origin to the above-knee popliteal. The popliteal artery reconstituted at the end of the stent and was patent with runoff via anterior tibial and posterior tibial arteries to the foot. OPERATIVE PROCEDURE: Following routine patient identification with side and site verification, intravenous sedation was established. Both groins were prepped with ChloraPrep. A timeout was performed. Using real-time duplex imaging, the left femoral artery was identified and found to be patent with moderate calcified plaque. A site for cannulation was chosen above the bifurcation, and 1% lidocaine was infiltrated in the skin and subcutaneous tissues at this level. The artery was then cannulated with a micropuncture needle under ultrasound guidance. A wire was passed proximally, and the needle was exchanged for a 5-Burmese catheter. The wire was exchanged for a glidewire which was advanced into the abdominal aorta. The catheter was exchanged over a wire for a 5-Burmese sheath. An Omni flush catheter was then advanced into the distal abdominal aorta and angiography performed with dilute contrast and digital technique. A wire was then advanced through the catheter into the right iliac artery and distally to the level of the femoral artery. A catheter was advanced over the wire, and the wire was removed. Angiography of the right lower extremity was then obtained. A stiff wire was passed through the catheter, and the catheter and the sheath were removed. A long 6-Burmese sheath was advanced over the aortic bifurcation into the right femoral artery. Patient was systemically heparinized. An angled tip wire and catheter were then advanced into the occluded stent and distally to the point of reconstitution in the proximal popliteal. Confirmatory angiogram was obtained. A 4-mm Spider wire filter was then advanced through the catheter and positioned in the popliteal artery. The catheter was removed. Angioplasty of the stent was then performed with a 5-mm and 6-mm balloons. Completion imaging revealed a patent stent with intact runoff to the foot. The filter was removed. The sheath was pulled back over the aortic bifurcation over a wire. Angiogram of the left femoral artery was obtained to confirm cannulation site was above the bifurcation. The sheath was then exchanged for a 6-Burmese short-sheath, and then the arteriotomy site was closed with a Mynx device without complication. Sterile dressing was applied, and patient was taken to the recovery room in stable condition. JAY ARANA M.D. [id number]
[2018-08-21 16:22] VITALS: BP 103/67; PULSE 66; TEMP 97.7
== END 2018-08-21 15:30 | disposition home or self-care (01) ==
LOC: JASU-SURG 05:05
PROVIDERS: ATTEND Surgery
PROC: 047K3Z6 (ICD-10-PCS; principal; 2018-08-21 10:00)
DX: T81.89XA Other complications of procedures, not elsewhere classified, initial encounter (principal); E11.51 Type 2 diabetes mellitus with diabetic peripheral angiopathy without gangrene; Z79.4 Long term (current) use of insulin; L97.518 Non-pressure chronic ulcer of other part of right foot with other specified severity; I77.1 Stricture of artery; I70.201 Unspecified atherosclerosis of native arteries of extremities, right leg; Z89.431 Acquired absence of right foot
CPT/HCPCS: 37224; C1885; 82962; 94760; J1644